=== PATIENT | female | born 1945 | race Caucasian/White ===

== ENCOUNTER → 2018-11-04 | Outpatient (CLI) | payer MEDICARE, OTHER, SELFPAY ==
[2018-08-18 10:37] VITALS: BMI 38.8
--- NOTE | 2018-11-04 12:53 | CT_ITS ---
STUDY: CT MAXILLOFACIAL SINUSES REASON FOR EXAM: Female, 72 years old. Sinusitis RADIATION DOSAGE (If Supplied By Facility): CTDIvol = ( 29.38 ) mGy, DLP = ( 385.84 ) mGycm TECHNIQUE: The patient was scanned in a multi detector CT scanner. High resolution axial imaging was performed without the administration of intravenous contrast material. Sagittal and coronal images were reconstructed. Individualized dose optimization techniques were used for this CT. COMPARISON: None. FINDINGS: FRONTAL SINUSES: Normal aeration, without mucosal inflammatory disease. ETHMOIDAL SINUSES: Normal aeration, without mucosal inflammatory disease. MAXILLARY SINUSES: Normal aeration, without mucosal inflammatory disease. SPHENOIDAL SINUSES: Normal aeration, without mucosal inflammatory disease. There is patency of the bilateral maxillary infundibuli with normal uncinate processes, ethmoid bullae, and hiatus semilunaris. Normal bilateral middle turbinates. Normal bilateral inferior turbinates. Normal midline nasal septum. There is patency of the bilateral nasal airways. The visualized osseous structures are normal. The visualized bilateral orbital contents are normal. CT/Sinus/Facial Bone IMPRESSION: Normal CT examination of the maxillofacial sinuses. Electronically Signed: Ambrocio Garcia, at 16:49 EDT Tel , Service support ,
== END | disposition home or self-care (01) ==
PROVIDERS: Family Provider Family Medicine; PCP Family Medicine; Referring Provider Otolaryngology Otolaryngology/Facial Plastic Surgery; Visit Provider Otolaryngology Otolaryngology/Facial Plastic Surgery
DX: J32.9 Chronic sinusitis, unspecified (principal)
CPT/HCPCS: 70486

== ENCOUNTER → 2020-07-27 14:04 | Outpatient (CLI) | payer MEDICARE, OTHER, SELFPAY ==
[2020-07-24 14:34] VITALS: BMI 35.4
--- NOTE | 2020-07-27 14:10 | RAD_ITS ---
HISTORY: CHRONIC LBP WITH RADIATION INTO BILAT LEGS COMPARISON: None FINDINGS: # of images incl. paperwork: 2 XR Spine Lumbar 2 or 3 Views: Lumbar vertebral bodies are normal in height. Lumbar disc spaces areare narrowed at several levels. The patient has undergone a prosthetic disc placement at the L4-L5 level with posterior spinal fixation hardware placed at the L3-L4 level. Facet arthropathy is present at many levels, beginning perhaps at the L2-L3 level extending through L5-S1. There may be fusion across the L3-L4 or L4-L5 and L5-S1 levels. Laminectomy has been performed at the L3-L4 levels. Additional left upper quadrant surgical clips. Cholecystectomy clips. 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 No acute lumbar spine fracture or subluxation. RAD/Lumbar Spine 2 or 3 Views IMPRESSION: No acute lumbar spine fracture or subluxation. Posterior spinal fixation at L3-L4. Laminectomies at L4 3 04. Prosthetic disc spacer at L4-L5. There is degrees of degenerative or postoperative fusion of the facets from L2-L3 through L5-S1 with arthropathy. Trace retrolisthesis of L3 on L4 is unchanged. at 0455 Reported and signed by: Sebastian Don MD Electronically Signed: Sebastian Don MD at 4:54 EST Tel , Service support ,
== END ==
PROVIDERS: PCP Family Medicine; Visit Provider Anesthesiology Pain Medicine
DX: M54.9 Dorsalgia, unspecified (principal); M79.606 Pain in leg, unspecified
CPT/HCPCS: 72100

== ENCOUNTER → 2020-08-07 16:06 | Outpatient (CLI) | payer MEDICARE, OTHER, SELFPAY ==
[2020-07-24 14:34] VITALS: BMI 35.4
--- NOTE | 2020-08-07 16:18 | MRI_ITS ---
STUDY: MRI LUMBAR SPINE WITHOUT CONTRAST REASON FOR EXAM: Female, 74 years old. back and bilat leg pain x 1 year TECHNIQUE: Standardized fat and water weighted pulse sequences were obtained in the sagittal and axial planes. COMPARISON: None FINDINGS: T12-L1: Normal endplates. Normal disc height, hydration and morphology. Normal bilateral facet joints. Normal central canal and bilateral lateral recesses. Normal bilateral intervertebral neural foramina. Normal lumbar lordosis. There is no substantial scoliosis. Normal conus medullaris that terminates at the L2. L1-2: Mild bilateral facet hypertrophy and ligament flavum hypertrophy. Mild bilobed disc protrusion produces mild spinal stenosis with mild bilateral lateral recess stenosis but no neural foraminal stenosis. L2-3: Moderate bilateral facet hypertrophy and ligament flavum hypertrophy. Moderate broad disc protrusion produces moderate spinal stenosis with moderate bilateral recess stenosis with abutment of the L3 nerve roots bilaterally and mild bilateral neural foraminal stenosis. L3-4: Status post posterior decompression and transpedicular fixation with anatomic alignment and no spinal stenosis or neural foraminal stenosis. There is a small seroma the within the posterior soft tissues posterior to the thecal sac without mass effect on the thecal sac. L4-5: Status post discectomy with interbody fusion with bony bridging and posterior decompression with anatomic alignment and no spinal stenosis or neural foraminal stenosis. L5-S1: Mild bilateral facet hypertrophy. Mild broad disc protrusion produces mild spinal stenosis and mild bilateral neural foraminal stenosis. Normal visualized sacral ala. Normal visualized paraspinous soft tissue structures. MRI/Spine Lumbar (Routine) IMPRESSION: Postsurgical changes and degenerative disc disease as described above particularly at L2/L3 just superior to the site of the fixation. Electronically Signed: Sheldon Ramirez MD at 17:26 EST Tel , Service support ,
== END ==
PROVIDERS: PCP Family Medicine; Referring Provider Anesthesiology Pain Medicine; Visit Provider Anesthesiology Pain Medicine
DX: M54.9 Dorsalgia, unspecified (principal); M79.606 Pain in leg, unspecified
CPT/HCPCS: 72148

== ENCOUNTER 2020-09-21 14:00 | Outpatient (RCR) | payer MEDICARE, OTHER, SELFPAY ==
[2020-07-24 14:34] VITALS: BMI 35.4
--- NOTE | 2020-09-12 08:57 | HP.PTEVAL_ITS ---
Patient's Visit Information MELISSA CINTRON is a 74 year old F referred to Physical Therapy by Dr. Leonie Loja MD with a diagnosis of Back and leg pain. Date of Evaluation: 09/08/20 Physical Therapist: Lio Nicolas DPT - Visit Plan Frequency: 2x /Week Duration: 4-6 Weeks Plan: Start with neutral spine core stability and BLE strengthening in aquatic setting. Add in HS stretching as well. Progress as tolerated. - Subjective Pt. is here today for her initial evaluation with diagnosis of low back and leg pain. Pt. reports having increased pain for 40 years stemming from a work injury. Pt. has had 3 surgeries on her back, most recent being a few years ago. She has been having progressing back and B Leg pain worsing over the past year or so. Pt. reports increased pain with prolonged standing, walking and lifting. Decreased pain with sitting and sleeping. Pt. reports occssional N/T in either LE as well. She does not report that her legs having been giving out on her. Pt. has not beening doing much since COV and has been attempting to stay in doors. Pt. did have a recent injection which gave her some relief. pt. is hopeful to reduce overall symptoms and walk further without increase in symptoms. MRI- L2- 3: Moderate bilateral facet hypertrophy and ligament flavum. hypertrophy. Moderate broad disc protrusion produces moderate spinal. stenosis with moderate bilateral recess stenosis with abutment of the L3. nerve roots bilaterally and mild bilateral neural foraminal stenosis. L3-4: Status post posterior decompression and transpedicular fixation with. anatomic alignment and no spinal stenosis or neural foraminal stenosis. There is a small seroma the within the posterior soft tissues posterior to. the thecal sac without mass effect on the thecal sac. L4-5: Status post discectomy with interbody fusion with bony bridging and. posterior decompression with anatomic alignment and no spinal stenosis or. neural foraminal stenosis. - Pain Lumbar spine Pain Intensity (Out of 10): 3 Pain Intensity Range: 1, 8 BLEs Pain Intensity (Out of 10): 3 Pain Intensity Range: 1, 8 - Objective POSTURE: Pt. has general flexed posture, anterior pelvic tilt as well. Normal iliac crest heights. PALPATION: Pt. has normal healing post surgical insicion, non recent. Pt. has tenderness and tightness associated with B lumbar paraspinals. NEURO: Pt. has decreased patellar and achilles DTR bilaterally. Normal sensation throughout BLEs. Pt. is able to rise on heels and toe. ROM: LUMBAR SPINE: flexion- mod loss increase NW, extension- mod loss increase NW, SB mod loss (stiffness, no pain), rotation mod loss (stiffness no pain). Pt. has B knees replaced as well. Sitffness in B hips and knees. Tight HS as well. MMT: Pt. has 4+/5 BLE strength, except hip flexion 4/5, and hip abd 4/5, core strength poor. (difficulty completeing post pelvic tilt). GAIT: Pt. ambulates with increased bilateral hip sway laterally, minizied arm swing and decreased step length bilatrally. - Goals Goal 1:: LTG: Pt. to be I with HEP. Goal Time Frame: 4-6 Weeks Goal 2:: STG: Pt. to walk throughout grocery store with 0-3/10 pain in lumbar spine and BLEs. Goal Time Frame: 2-4 Weeks Goal 3:: LTG: Pt. to ambulate unlimited distances with 0-3/10 pain allowing for increased healthy lifestyle. Goal Time Frame: 4-6 Weeks Goal 4:: LTG: pt. to have increased core and BLE strength increaed by 1/2 grade. Goal Time Frame: 4-6 Weeks Goal 5:: LTG: Pt. to be educated in prophalxis to reudce return to symptoms. Goal Time Frame: 4-6 Weeks - Rehabilitation Potential Physical Therapy Diagnosis: Pt. has signs and symptoms consistent with low back pain and B Leg pain. Pt. has marked stiffness throuhgout her back with increased pain. She also has marked weakness in BLEs and her core musculature. I would like her to start with BLE and core strengtheing in aquatic setting and increase a less guarded gait pattern. Rehabilitation Potential: Good - Anticipated Interventions Patient/Client Instruction: Educate patient on: Condition, Plan of Care, Risk Factors, Benefits of Fitness Program For the Purpose of:: To improve self management, To prevent re-injury, To improve ability to perform tasks related to life management, To improve tolerance to ADL's Therapeutic Exercise to Include: Strength training, Power training, Endurance training, Agility training, Body mechanics, Postural training, Flexibilty training, In an aquatic setting, Dynamic Lumbar Stabilization, Johana Exercises, Scapular Strength/Stabilization For the Purpose of:: To decrease pain, To decrease swelling/inflammation, To increase ROM, To improve nutrient delivery to tissue, To increase oxygenation perfusion, To improve muscle performance and motor function, To decrease level of supervision to perform tasks, To improve ability of physical actions for home/community/work/leisure, To improve health of tissue, To decrease soft tissue restriction Thank you for the opportunity to evaluate your patient. For Medicare and Medicare HMO plans, please review the plan of care and approve it. It will need to be FAXED BACK to us at [phone] for Medicare purposes. For Medicare only, by signing this I certify the plan of care. Please let me know if there are questions or concerns regarding this plan of care. Physician Signature: Date:
--- NOTE | 2020-12-13 12:15 | HP.PT.NRP ---
MELISSA CINTRON was seen in my office for initial evaluation on 09/08/20. The following Plan of Care was established for this patient: Initial Frequency: 2x /Week Initial Duration: 4-6 Weeks Patient/Client Instruction: Educate patient on: Condition, Plan of Care, Risk Factors, Benefits of Fitness Program For the Purpose of:: To improve self management, To prevent re-injury, To improve ability to perform tasks related to life management, To improve tolerance to ADL's Therapeutic Exercise to Include: Strength training, Power training, Endurance training, Agility training, Body mechanics, Postural training, Flexibilty training, In an aquatic setting, Dynamic Lumbar Stabilization, Johana Exercises, Scapular Strength/Stabilization For the Purpose of:: To decrease pain, To decrease swelling/inflammation, To increase ROM, To improve nutrient delivery to tissue, To increase oxygenation perfusion, To improve muscle performance and motor function, To decrease level of supervision to perform tasks, To improve ability of physical actions for home/community/work/leisure, To improve health of tissue, To decrease soft tissue restriction This patient was last seen in our office 09/21/20. Pertinent comments regarding their Physical therapy will appear below: Pt. was seen in PT in aquatic setting. She came for 5 visits, but did not attend her follow up with the PT and has not been seen in several months. Pt. will be DC from PT at this point in time. At this point I will be discontinuing this patient from physical therapy. I would be happy to see this patient again in the future if found appropriate by the physician. Thank you! Lio Nicolas DPT
== END 2020-09-21 19:00 | disposition home or self-care (01) ==
LOC: PT 14:00
PROVIDERS: PCP Family Medicine; Referring Provider Anesthesiology Pain Medicine; Visit Provider Anesthesiology Pain Medicine
DX: M54.9 Dorsalgia, unspecified (principal); M79.606 Pain in leg, unspecified
CPT/HCPCS: 97113; 97161

== ENCOUNTER → 2022-10-10 | Outpatient (CLI) | payer MEDICARE, OTHER, SELFPAY ==
[2022-10-10 13:05] LABS: T4 Free Direct 1.05 ng/dL (0.76-1.46); Thyroid Stim Hormone (TSH) 0.32 uIU/mL (0.358-3.74)
== END | disposition home or self-care (01) ==
LOC: BIMLAB 11:17
PROVIDERS: PCP Family Medicine; Referring Provider Internal Medicine Endocrinology, Diabetes & Metabolism; Visit Provider Internal Medicine Endocrinology, Diabetes & Metabolism
DX: E11.9 Type 2 diabetes mellitus without complications (principal)
CPT/HCPCS: 36415; 84439; 84443

== ENCOUNTER → 2023-02-24 | Outpatient (CLI) | payer MEDICARE, OTHER, SELFPAY ==
[2023-02-24 14:18] LABS: Amphetamine Urine VISTA NEGATIVE (<1000 ng/mL); Barbiturate Urine VISTA NEGATIVE (< 200 ng/mL); Benzodiazepine Urine VISTA NEGATIVE (< 200 ng/mL); Cocaine Urine VISTA NEGATIVE (< 300 ng/mL); Ecstacy Urine VISTA NEGATIVE (< 500 ng/mL); Methadone Urine VISTA NEGATIVE (< 300 ng/mL); PCP Urine VISTA NEGATIVE (< 25 ng/mL); THC Urine VISTA NEGATIVE (< 50 ng/mL); Vista UDS pH Range 6
== END | disposition home or self-care (01) ==
PROVIDERS: PCP Family Medicine; Referring Provider Anesthesiology Pain Medicine; Visit Provider Anesthesiology Pain Medicine
DX: F11.20 Opioid dependence, uncomplicated (principal)
CPT/HCPCS: 80307

== ENCOUNTER → 2023-10-13 | Outpatient (CLI) | payer MEDICARE, SELFPAY ==
[2023-10-13 13:59] LABS: Bacteria 0 SEEN /hpf (None Seen); Mucous, Urine 0 SEEN /hpf (<or=2+); Red Blood Cells-Urine 0 SEEN /hpf (0-5); White Blood Cells 0 SEEN /hpf (0-5)
[2023-10-13 16:25] LABS: Color, Urine Yellow (Yellow); Glucose, Dipstick Normal (Normal); Ketone-Dipstick Negative (Negative); Leukocyte Esterase-Dipstick Negative /ul (Negative); Nitrite-Dipstick Negative (Negative); Occult Blood-Urine Negative /ul (Negative); Protein-Dipstick Negative (Negative); Urine Bilirubin Dipstick Negative (Negative); Urine Clarity Clear (Clear); Urine Urobilinogen Normal (Normal)
[2023-10-13 16:51] LABS: Absolute Lymphocyte Count 1.95 X10^3/uL (0.83-4.51); Absolute Neutrophil Count 2.6 X10^3/uL (2.0-7.7); Basophil# 0.03 X10^3/uL; Basophil% 0.6 % (0-1); Eosinophil# 0.11 X10^3/uL; Eosinophils% 2.1 % (0-5); Hematocrit 34.2 % (37-47); Hemoglobin 10.9 g/dL (12.0-15.0); Lymphocyte # 1.95 X10^3/ul (0.83-4.51); Lymphocyte % 36.9 % (19-41); Mean Corp Hgb Conc 31.9 g/dL (32-36); Mean Corpuscular Hgb 31.6 pg (27.0-32.0); Mean Corpuscular Volume 99.1 fL (81-99); Monocyte# 0.53 X10^3/uL; NRBC Flagged by Analyzer 0 % (0-5); Neutrophil # 2.64 X10^3/uL (2.7-7.7); Neutrophil % 49.8 % (47-70); Platelet Count 214 K/mm3 (150-450); RBC Distribution Width CV 13.7 % (11.6-14.6); RBC Distribution Width SD 49.4 fl (35.1-43.9); Red Blood Count 3.45 M/mm3 (4.2-5.4); White Blood Count 5.3 K/mm3 (4.4-11.0)
[2023-10-13 17:08] LABS: Vitamin D,25 Hydroxy 53.8 ng/mL
[2023-10-13 17:17] LABS: Squamous Epithelial Cells - UA 0-5 SEEN /hpf (5-10)
[2023-10-13 17:23] LABS: AST(SGOT) 34 U/L (15-37); Alanine Aminotransfer ALT/SGPT 30 U/L (13-56); Albumin, Serum 3.5 g/dL (3.2-5.0); Alkaline Phosphatase 30 U/L (45-117); Anion Gap 8 (5-15); BUN 28 mg/dL (7-18); BUN/Creat Ratio 18.9 RATIO (10-20); Calcium,Total 9.6 mg/dL (8.5-10.1); Chloride 105 mmol/L (98-107); Cholesterol 143 mg/dL (200); Creatinine, Serum 1.48 mg/dL (0.55-1.02); EST Glomerular Filtration Rate 36 mL/min (>60); Est Glom Filt Rate - Afr Amer 44 mL/min (>60); Globulin 3.6 g/dL (2.2-4.2); Glucose 86 mg/dL (74-106); High Density Lipoprotein 24 mg/dL; Potassium 4.5 mmol/L (3.5-5.1); Protein, Total 7.1 g/dL (6.4-8.2); Sodium Level 138 mmol/L (136-145); Thyroid Stim Hormone (TSH) 0.92 uIU/mL (0.358-3.74); Triglycerides 661 mg/dL; Uric Acid 4.5 mg/dL (2.6-6.0)
== END | disposition home or self-care (01) ==
LOC: LABSPEC 13:58 → BIMLAB 14:24
PROVIDERS: PCP Internal Medicine; Referring Provider Internal Medicine; Visit Provider Internal Medicine
DX: E11.22 Type 2 diabetes mellitus with diabetic chronic kidney disease (principal); N18.31 Chronic kidney disease, stage 3a
CPT/HCPCS: 36415; 80053; 80061; 81001; 82306; 84443; 84550; 85025

== ENCOUNTER → 2023-10-16 | Outpatient (CLI) | payer MEDICARE, SELFPAY ==
--- NOTE | 2023-10-16 11:21 | US_ITS ---
STUDY: ULTRASOUND - URINARY BLADDER REASON FOR EXAM: Female, 77 years old. Urinary dribbling TECHNIQUE: Ultrasound evaluation of the urinary bladder was performed with real-time and static santiago-scale imaging. COMPARISON: None. FINDINGS: There is no right UVJ calculus. There is a visualized right ureteral jet. There is no left UVJ calculus. There is a visualized left ureteral jet. The distended volume of the urinary bladder is 182.6 ml. The empty volume of the urinary bladder is 131 ml. The bladder wall is within normal limits. The bladder wall measures 2.8 mm. There is no demonstrated bladder wall mass lesion. There are no demonstrated bladder calculi. US/Post Void Residual Bladder IMPRESSION: Large postvoid residual. Electronically Signed: Julio Moralez MD at 14:49 EDT ,
== END | disposition home or self-care (01) ==
PROVIDERS: PCP Internal Medicine; Referring Provider Internal Medicine; Visit Provider Internal Medicine
DX: N39.43 Post-void dribbling (principal)
CPT/HCPCS: 51798

== ENCOUNTER → 2023-10-20 | Outpatient (CLI) | payer MEDICARE, SELFPAY ==
[2023-10-20 13:51] LABS: Amphetamine Urine VISTA NEGATIVE (<1000 ng/mL); Barbiturate Urine VISTA NEGATIVE (< 200 ng/mL); Benzodiazepine Urine VISTA NEGATIVE (< 200 ng/mL); Cocaine Urine VISTA NEGATIVE (< 300 ng/mL); Ecstacy Urine VISTA NEGATIVE (< 500 ng/mL); Methadone Urine VISTA NEGATIVE (< 300 ng/mL); PCP Urine VISTA NEGATIVE (< 25 ng/mL); THC Urine VISTA NEGATIVE (< 50 ng/mL); Vista UDS pH Range 5
== END | disposition home or self-care (01) ==
PROVIDERS: PCP Internal Medicine; Referring Provider Anesthesiology Pain Medicine; Visit Provider Anesthesiology Pain Medicine
DX: F11.20 Opioid dependence, uncomplicated (principal)
CPT/HCPCS: 80307

== ENCOUNTER → 2024-03-12 | Outpatient (CLI) | payer MEDICARE, SELFPAY ==
[2024-03-12 11:54] LABS: Absolute Lymphocyte Count 1.35 X10^3/uL (0.83-4.51); Absolute Neutrophil Count 2.2 X10^3/uL (2.0-7.7); Basophil# 0.01 X10^3/uL; Basophil% 0.3 % (0-1); Eosinophil# 0.13 X10^3/uL; Eosinophils% 3.3 % (0-5); Hematocrit 35.5 % (37-47); Lymphocyte # 1.35 X10^3/ul (0.83-4.51); Mean Corpuscular Hgb 31.5 pg (27.0-32.0); Mean Corpuscular Volume 101.7 fL (81-99); Mean Platelet Vol. 10.4 fl (6.2-12.0); Monocyte% 7.6 % (0-10); NRBC Flagged by Analyzer 0 % (0-5); Neutrophil # 2.17 X10^3/uL (2.7-7.7); Neutrophil % 54.5 % (47-70); Platelet Count 173 K/mm3 (150-450); RBC Distribution Width CV 14.7 % (11.6-14.6); Red Blood Count 3.49 M/mm3 (4.2-5.4)
== END | disposition home or self-care (01) ==
LOC: BIMLAB 10:44
PROVIDERS: PCP Internal Medicine; Referring Provider Physician Assistant; Visit Provider Physician Assistant
DX: K92.1 Melena (principal)
CPT/HCPCS: 36415; 85025

== ENCOUNTER → 2024-04-05 | Outpatient (CLI) | payer MEDICARE, SELFPAY | END | disposition home or self-care (01) | LOC: MTLAB 16:10 | PROVIDERS: PCP Internal Medicine; Referring Provider Internal Medicine Gastroenterology; Visit Provider Internal Medicine Gastroenterology | DX: R19.7 Diarrhea, unspecified (principal) | CPT/HCPCS: 87493 ==

== ENCOUNTER → 2024-04-14 | Outpatient (CLI) | payer MEDICARE, SELFPAY ==
[2024-04-14 15:14] LABS: Absolute Lymphocyte Count 2.09 X10^3/uL (0.83-4.51); Absolute Neutrophil Count 5.3 X10^3/uL (2.0-7.7); Basophil# 0.07 X10^3/uL; Basophil% 0.8 % (0-1); Eosinophil# 0.24 X10^3/uL; Eosinophils% 2.9 % (0-5); Hematocrit 35.6 % (37-47); Hemoglobin 11.1 g/dL (12.0-15.0); Lymphocyte # 2.09 X10^3/ul (0.83-4.51); Lymphocyte % 24.9 % (19-41); Mean Corp Hgb Conc 31.2 g/dL (32-36); Mean Corpuscular Hgb 31.3 pg (27.0-32.0); Mean Corpuscular Volume 100.3 fL (81-99); Mean Platelet Vol. 8.8 fl (6.2-12.0); Monocyte# 0.55 X10^3/uL; Monocyte% 6.5 % (0-10); NRBC Flagged by Analyzer 0 % (0-5); Neutrophil # 5.34 X10^3/uL (2.7-7.7); Neutrophil % 63.6 % (47-70); Platelet Count 343 K/mm3 (150-450); RBC Distribution Width CV 14.8 % (11.6-14.6); RBC Distribution Width SD 54.6 fl (35.1-43.9); Red Blood Count 3.55 M/mm3 (4.2-5.4); White Blood Count 8.4 K/mm3 (4.4-11.0)
[2024-04-14 16:18] LABS: Microalbumin,Random Urine 6.7 mg/L (NO RANGE EST.); Microalbumin:Creatinine Ratio 15.7 mg/g CRE (<30 mg/g CRE)
[2024-04-14 17:12] LABS: ALB/GLOB Ratio 0.8 RATIO (0.9-2.4); AST(SGOT) 31 U/L (15-37); Alanine Aminotransfer ALT/SGPT 23 U/L (13-56); Albumin, Serum 3.3 g/dL (3.2-5.0); Alkaline Phosphatase 89 U/L (45-117); Anion Gap 8 (5-15); BUN 29 mg/dL (7-18); BUN/Creat Ratio 20.1 RATIO (10-20); Calcium,Total 9.8 mg/dL (8.5-10.1); Chloride 104 mmol/L (98-107); Cholesterol 129 mg/dL (200); Creatinine, Serum 1.44 mg/dL (0.55-1.02); EST Glomerular Filtration Rate 37 mL/min (>60); Est Glom Filt Rate - Afr Amer 45 mL/min (>60); Globulin 4.3 g/dL (2.2-4.2); Glucose 217 mg/dL (74-106); High Density Lipoprotein 28 mg/dL; Potassium 4.5 mmol/L (3.5-5.1); Protein, Total 7.6 g/dL (6.4-8.2); Sodium Level 137 mmol/L (136-145); Triglycerides 345 mg/dL; Very Low Density Lipoprotein 69 mg/dL (5-40)
== END | disposition home or self-care (01) ==
LOC: BIMLAB 14:20
PROVIDERS: PCP Internal Medicine; Referring Provider Physician Assistant; Visit Provider Physician Assistant
DX: E11.22 Type 2 diabetes mellitus with diabetic chronic kidney disease (principal); Z79.4 Long term (current) use of insulin; N18.31 Chronic kidney disease, stage 3a; E03.9 Hypothyroidism, unspecified
CPT/HCPCS: 36415; 80053; 80061; 82043; 82570; 84443; 85025

== ENCOUNTER → 2024-05-13 | Outpatient (CLI) | payer MEDICARE, SELFPAY | END | disposition home or self-care (01) | PROVIDERS: PCP Internal Medicine; Referring Provider Internal Medicine Gastroenterology; Visit Provider Internal Medicine Gastroenterology | DX: R19.7 Diarrhea, unspecified (principal) | CPT/HCPCS: 87493 ==

== ENCOUNTER → 2024-05-24 | Outpatient (CLI) | payer MEDICARE, SELFPAY ==
--- NOTE | 2024-05-24 16:15 | MRI_ITS ---
INDICATION: RADICULOPATHY, LOWER BACK PAIN EXAMINATION: MRI - MR Spine Lumbar W/O Contrast TECHNIQUE: Multiplanar and multisequence MR images of the lumbar spine. IV Contrast Dosage and Agent: None. COMPARISON: 08/07/2020. FINDINGS: VERTEBRAE: Vertebral body heights are preserved. Normal vertebral bodies and posterior elements. VERTEBRAL ALIGNMENT: 5 mm degenerative retrolisthesis at L2-3. CORD: Normal position and signal intensity of the conus medullaris. Endplate spondylosis. Circumferential disc bulge. Degenerative changes of the bilateral facet joints. Central canal and bilateral intervertebral neural foraminal narrowing. L1/L2: Mild narrowing of the spinal canal. Normal bilateral neuroforamina. L2/L3: Severe spinal canal and moderate bilateral neural foraminal narrowing. L3/L4: Postsurgical changes. There is no significant narrowing of the spinal canal or neural foramina. There is fluid collection posterior to the laminectomy site measures 3 x 1.4 x 2 cm most likely represent a seroma. L4/L5: Postsurgical changes. No significant stenosis of the spinal canal, lateral recesses and neuroforamina. L5/S1: Severe narrowing of the bilateral neuroforamina. SOFT TISSUES: Multilevel degenerative spondylosis. Severe spinal canal stenosis at L2-3 is worse since the previous study from 08/07/2020. MRI/Spine Lumbar (Routine) IMPRESSION: Unremarkable MRI of the lumbar spine. Electronically Signed: Shahana Pang MD at 6:13 EST ,
== END | disposition home or self-care (01) ==
PROVIDERS: PCP Internal Medicine; Referring Provider Anesthesiology Pain Medicine; Visit Provider Anesthesiology Pain Medicine
DX: M54.16 Radiculopathy, lumbar region (principal); M96.1 Postlaminectomy syndrome, not elsewhere classified
CPT/HCPCS: 72148

== ENCOUNTER 2024-06-16 18:12 | Emergency (ER) | payer MEDICARE, SELFPAY ==
[2024-06-16 18:13] VITALS: BP 118/62; PULSE 70; RESP 16; TEMP 36.4; O2SAT 97; BMI 38.6
--- NOTE | 2024-06-16 18:28 | EDS_ITS ---
HPI History of Present Illness Chief Complaint: Fall Informant: patient and EMS Narrative Narrative: 78-year-old female presenting to the emergency room with right knee pain. Patient states she was going down the stairs and she missed the last step falling. She believe her knee twisted. She notes pain only in the knee. She denies any other injuries. She states she is not on a blood thinner. She had the knee replaced about 20 years ago in [place] and the surgeon has since retired. Patient received fentanyl by EMS both intramuscular and IV. [facility] Medical History Osteopenia determined by x-ray Bilateral pseudophakia Amblyopia of left eye Dry eye syndrome of bilateral lacrimal glands Acute allergic conjunctivitis of both eyes Hypertriglyceridemia Encounter for long-term (current) insulin use Shingles Thyroid disease Skin cancer High cholesterol Gout Diabetes type 2, controlled Back problem Seasonal allergies Home Medications ?Medication ?Instructions ?Recorded ?Last Taken ?Type pantoprazole 40 mg tablet,delayed 40 mg PO QDAY 07/15/17 Unknown History release insulin syringe-needle U-100 0.3 #350 ea 07/17/17 Unknown Rx mL 31 gauge x 5/16 (BD Insulin Syringe Ultra-Fine) pen needle, diabetic 32 gauge x #350 ea 02/19/18 Unknown Rx 5/32 (BD Ultra-Fine Christy Pen Needle) cholecalciferol (vitamin D3) 25 1,000 unit PO DAILY 06/23/18 Unknown History mcg (1,000 unit) capsule aspirin 81 mg tablet,delayed 81 mg PO DAILY 07/24/20 Unknown History release mecobalamin (vitamin B12) 1,000 1,000 mcg PO DAILY 07/24/20 Unknown History mcg chewable tablet blood sugar diagnostic #100 ea 12/18/20 Unknown Rx icosapent ethyl 1 gram capsule 2 g (2 x 1 gram) PO BID #120 caps 11/05/21 Unknown Rx (Vascepa) omega-3 fatty acids 1,000 mg 1,000 mg PO BID 01/23/23 Unknown History capsule polyethylene glycol 3350 17 4 g PO DAILY PRN 01/23/23 Unknown History gram/dose oral powder (Miralax) tramadol 25 mg tablet 25 mg PO BID PRN 09/01/23 Unknown History flash glucose sensor (FreeStyle #2 ea 10/02/23 Unknown Rx Nomi 2 Sensor kit) furosemide 20 mg tablet 20 mg PO QDAY #90 tabs 10/13/23 Unknown Rx metoprolol succinate 50 mg 25 mg (1/2 x 50 mg) PO BID #180 10/13/23 Unknown Rx tablet,extended release 24 hr tabs Novolog FlexPen U-100 Insulin 100 40 unit (0.4 mL) subcut TID #48 mL 01/01/24 Unknown Rx unit/mL (3 mL) subcutaneous (insulin aspart U-100) fluticasone propionate 50 1 spray intranasal DAILY PRN 01/01/24 Unknown History mcg/actuation nasal spray,suspension lisinopril 10 mg tablet 10 mg PO DAILY #90 tabs 01/23/24 Unknown Rx insulin degludec 200 unit/mL (3 55 unit subcut QHS 02/20/24 Unknown History mL) subcutaneous pen (Tresiba FlexTouch U-200 insulin) montelukast 10 mg tablet 10 mg PO DAILY #90 tabs 04/05/24 Unknown Rx blood sugar diagnostic (OneTouch #100 ea 04/09/24 Unknown Rx Ultra Test strips) loratadine 10 mg tablet 10 mg PO DAILY PRN for allergies 04/09/24 Unknown Rx #90 TABLETS potassium chloride 20 mEq 20 meq PO QDAY #90 tabs 04/09/24 Unknown Rx tablet,extended release(part/cryst) (Klor-Con M) Saccharomyces boulardii 250 mg 250 mg PO BID 04/14/24 Unknown History capsule (Florastor) allopurinol 300 mg tablet 300 mg PO DAILY #90 tabs 04/14/24 Unknown Rx fenofibrate micronized 134 mg 134 mg PO DAILY #90 caps 04/14/24 Unknown Rx capsule levothyroxine 112 mcg tablet 112 mcg PO DAILY #90 tabs 04/14/24 Unknown Rx rosuvastatin 20 mg tablet 20 mg PO QDAY #90 tabs 04/14/24 Unknown Rx trazodone 50 mg tablet 50 mg PO QHS PRN insomnia #90 tabs 04/14/24 Unknown Rx vancomycin 125 mg capsule 125 mg PO 4X/DAY 04/14/24 Unknown History Jardiance 25 mg tablet 25 mg PO QAM #90 tabs 05/13/24 Unknown Rx (empagliflozin) blood-glucose meter,continuous #1 ea 05/13/24 Unknown Rx (FreeStyle Nomi 3 [place]) blood-glucose sensor (FreeStyle #6 ea 05/13/24 Unknown Rx Nomi 3 Plus Sensor device) pen needle, diabetic 32 gauge x #150 ea 06/14/24 Unknown Rx (BD Ultra-Fine Christy Pen Needle) Allergy/AdvReac Type Severity Reaction Status Date / Time Sulfa (Sulfonamide AdvReac Severe Upset Verified 06/16/24 18:13 Antibiotics) Stomach Penicillins AdvReac Intermediate Diarrhea Verified 06/16/24 18:13 cephalexin (From Keflex) AdvReac Nausea/Vom/ Verified 06/16/24 18:13 Diarrhea Family History Father Colon cancer Mother Diabetes Myocardial infarction Son Kidney stones Son Kidney stones Diabetes Hyperlipidemia Sister Diabetes Brother Diabetes Heart disease Sister Heart disease Diabetes COPD (chronic obstructive pulmonary disease) Surgical History Status post Mohs surgery History of knee replacement History of carpal tunnel release Hx of hernia repair H/O total hysterectomy Hx of cataract surgery Hx of cholecystectomy History of back surgery Social History household members: spouse current occupational status: 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 Smoking Status: Never smoker Electronic Cigarette Use: not used second hand exposure: No alcohol intake: never substance use type: does not use do you feel safe at home: Yes ROS ROS ED Constitutional Constitutional ED: Denies chills, fever(s) or weight loss Eyes Eyes: Denies change in vision or diplopia ENT ENT ED: Denies ear pain, rhinorrhea or sore throat Cardiovascular Cardiovascular: Denies chest pain, orthopnea, palpitations or racing heartbeat Respiratory/Chest Respiratory/Chest: Denies cough, dyspnea or orthopnea Gastrointestinal Gastrointestinal: Denies abdominal pain, diarrhea, nausea or vomiting Genitourinary Genitourinary ED: Denies dysuria, hematuria or urinary frequency Musculoskeletal Musculoskeletal: Reports other Details: Right knee pain ; Denies arthralgias, back pain, myalgias or neck pain Integumentary Denies abscess or rash Neurologic Neurologic: Denies headache(s) or weakness Psychiatric Psychiatric: Denies anxiety, depression, suicidal ideation or suicidal thoughts Endocrine Endocrinology: Denies polydipsia, polyphagia or polyuria Allergic/Immunologic Allergic/Immunologic ED: Denies mouth swelling, tongue swelling or urticaria EXAM Physical Exam Const Vital Signs: 06/16/24 18:13 06/16/24 18:17 Temperature 97.6 F L Temperature Source Temporal Pulse Rate 70 Respiratory Rate 16 Respiratory Effort Normal Respiratory Depth Normal Respiratory Pattern Normal Blood Pressure 118/62 Blood Pressure Mean 80 Pulse Ox 97 Oxygen Delivery Method Room Air Room Air Oxygen Flow Rate (L/min) 94 Positive well nourished, well developed and obese General Appearance ED: well developed and NAD Nutritional Appearance: obese HEENT Reports normocephalic, head/scalp atraumatic and moist mucous membranes Eyes PERRL and EOMs intact bilaterally Neck no lymphadenopathy, supple and no JVD Resp normal respiratory effort and clear to auscultation bilaterally Cardio regular rate, regular rhythm and no murmurs GI normal to inspection, nondistended, normoactive bowel sounds and non-tender Palpation: soft Back/Spine no CVA tenderness and normal ROM Extremity Extremity Narrative: Right knee is slightly flexed. There is a well-healed midline incision. There is deformity over the cephalad aspect of the knee. Neurovascularly appears intact distal with normal coloration of the skin +2 dorsalis pedis pulse. Normal sensation. Unable to move knee without significant pain. General Extremety ED: Negative for edema General Extremity: Negative for edema Neuro oriented x3 and CN's II-XII intact bilaterally Sensorium / Orientation: alert Motor Exam: strength 5/5 throughout Psych mental status grossly normal Mood & Affect: Negative for depressed or tearful Skin no rashes or lesions noted and no wounds MDM MDM MDM Narrative Medical decision making narrative: Differential diagnosis includes but not limited to fracture dislocation ligamentous injury tendon injury muscular injury My independent interpretation 2 view knee x-ray is a acute distal periprosthetic femur fracture. Fracture begins distal femur just anterior to the prosthetic and extends in a spiral pattern cephalad. We are able to straighten the patient's leg place her knee immobilizer. Basic blood work will be obtained. Spoke with the patient and her family. I explained to them we do not have orthopedics on-call tonight and typically these periprosthetic fractures would be transferred to tertiary care. They did not have a preference for tertiary care for centimeters. I called [facility]. I spoke with orthopedics and then the emergency attending. Patient will be transferred to the emergency department there for orthopedic evaluation and final disposition. History & Record Review Discussion w/independent historian: EMS personnel, Patient and Family Lab Data Attestation: I reviewed the patient's lab results. Labs: Laboratory Results - last 24 hr 06/16/24 18:37 WBC 5.4 RBC 3.51 L Hgb 11.3 L Hct 33.9 L MCV 96.6 MCH 32.2 H MCHC 33.3 RDW Std Deviation 49.8 H RDW Coeff of Stephane 14.3 Plt Count 198 MPV 9.6 Immature Gran % (Auto) 0.600 Neut % (Auto) 52.4 Lymph % (Auto) 33.4 [place] % (Auto) 9.5 Eos % (Auto) 3.5 Baso % (Auto) 0.6 Absolute Neuts (auto) 2.8 Absolute Lymphs (auto) 1.80 Nucleated RBC % 0 PT 14.0 INR 1.1 APTT 27.2 Sodium 140 Potassium 4.4 Chloride 108 H Carbon Dioxide 25.0 Anion Gap 7 BUN 34 H Creatinine 1.77 H Estim Creat Clear Calc 29.38 Est GFR (MDRD) Af Amer 36 L Est GFR (MDRD) Non-Af 29 L BUN/Creatinine Ratio 19.2 Glucose 166 H Calcium 9.4 Discharge Plan Triage Chief Complaint: Fall ED Provider: Amandeep Panda Dx/Rx/DC Orders Clinical Impression: Fall, Kidney disease, chronic, stage III (GFR 30-59 ml/min), Femur fracture, right, Type 2 diabetes mellitus Prescriptions: No Action (DME) insulin syringe-needle U-100 [BD Insulin Syringe Ultra-Fine] 0.3 mL 31 gauge x 5/16 syringe See Dose Instructions .ROUTE .MEDSUPPLY Qty: 350 3RF Dose Instruction: As directed Rx Instructions: use to inject insulin 4 x q d pantoprazole 40 mg tablet,delayed release (DR/EC) 40 mg PO QDAY (DME) pen needle, diabetic [BD Ultra-Fine Christy Pen Needle] 32 gauge x 5/32 needle See Dose Instructions .ROUTE .MEDSUPPLY Qty: 350 3RF Dose Instruction: As directed Rx Instructions: As directed with insulin 4x daily cholecalciferol (vitamin D3) 1,000 unit capsule 1,000 unit PO DAILY aspirin 81 mg tablet,delayed release (DR/EC) 81 mg PO DAILY mecobalamin (vitamin B12) 1,000 mcg tablet,chewable 1,000 mcg PO DAILY (DME) OneTouch Ultra Test Strip See Dose Instructions .ROUTE .MEDSUPPLY Qty: 100 3RF Dose Instruction: As directed Rx Instructions: daily omega-3 fatty acids 1,000 mg capsule 1,000 mg PO BID polyethylene glycol 3350 [Miralax] 17 gram/dose powder 4 g PO DAILY PRN fluticasone propionate 50 mcg/actuation spray,suspension 1 spray intranasal DAILY PRN Rx Instructions: administer into each nostril tramadol 25 mg tablet 25 mg PO BID PRN insulin aspart U-100 [Novolog FlexPen U-100 Insulin] 100 unit/mL (3 mL) insulin pen 40 unit subcut TID MDD 160 Qty: 48 7RF Rx Instructions: plus sliding scale furosemide 20 mg tablet 20 mg PO QDAY Qty: 90 1RF metoprolol succinate 50 mg tablet extended release 24 hr 25 mg PO BID Qty: 180 1RF (DME) FreeStyle Nomi 3 Plus Sensor Device See Rx Instructions .Route Qty: 6 1RF Rx Instructions: As directed (DME) FreeStyle Nomi 3 [place] Misc See Rx Instructions .Route Qty: 1 0RF Rx Instructions: As directed Jardiance 25 mg tablet 25 mg PO QAM Qty: 90 3RF vancomycin 125 mg capsule 125 mg PO 4X/DAY Saccharomyces boulardii [Florastor] 250 mg capsule 250 mg PO BID fenofibrate micronized 134 mg capsule 134 mg PO DAILY Qty: 90 1RF levothyroxine 112 mcg tablet 112 mcg PO DAILY Qty: 90 1RF allopurinol 300 mg tablet 300 mg PO DAILY Qty: 90 1RF rosuvastatin 20 mg tablet 20 mg PO QDAY Qty: 90 1RF trazodone 50 mg tablet 50 mg PO QHS PRN (Reason: insomnia) Qty: 90 1RF insulin degludec [Tresiba FlexTouch U-200] 200 unit/mL (3 mL) insulin pen 55 unit subcut QHS icosapent ethyl [Vascepa] 1 gram capsule 2 g PO BID Qty: 120 6RF (DME) FreeStyle Nomi 2 Sensor Kit See Rx Instructions .Route Qty: 2 7RF Rx Instructions: As directed lisinopril 10 mg tablet 10 mg PO DAILY Qty: 90 1RF montelukast 10 mg tablet 10 mg PO DAILY Qty: 90 0RF potassium chloride [Klor-Con M20] 20 mEq tablet,ER particles/crystals 20 meq PO QDAY Qty: 90 0RF loratadine 10 mg tablet 10 mg PO DAILY PRN (Reason: for allergies) Qty: 90 0RF (DME) OneTouch Ultra Test Strip See Rx Instructions .ROUTE .MEDSUPPLY Qty: 100 6RF Rx Instructions: three times daily (DME) pen needle, diabetic [BD Ultra-Fine Christy Pen Needle] 32 gauge x 5/32 needle See Rx Instructions .ROUTE .MEDSUPPLY Qty: 150 8RF Rx Instructions: 5 times daily Primary Care Provider: Penny Coulter Referrals: Penny Coulter MD [Primary Care Provider] - Print Language: Turkmen Disposition Disposition: Acute Care Hospital Discharge Location: [facility]
--- NOTE | 2024-06-16 18:50 | RAD_ITS ---
EXAM: XR RIGHT KNEE, 1 OR 2 VIEWS CLINICAL INDICATION: injury pain. TECHNIQUE: Frontal and/or lateral views of the right knee. COMPARISON: No relevant prior studies available. FINDINGS: BONES/JOINTS: Periprosthetic fracture of the distal femoral metadiaphysis with moderate displacement. Status post total knee arthroplasty. No sclerotic or destructive changes observed. SOFT TISSUES: Periarticular soft tissue swelling. No radiopaque foreign body. VASCULATURE: Vascular calcifications. RAD/Knee 1 or 2 Views IMPRESSION: Periprosthetic fracture of the distal femoral metadiaphysis with moderate displacement. Status post total knee arthroplasty. Electronically Signed: Alexei Radford DO at 20:13 EST ,
[2024-06-16 19:01] LABS: Anion Gap 7 (5-15); BUN 34 mg/dL (7-18); BUN/Creat Ratio 19.2 RATIO (10-20); Calcium,Total 9.4 mg/dL (8.5-10.1); Chloride 108 mmol/L (98-107); Creatinine, Serum 1.77 mg/dL (0.55-1.02); EST Glomerular Filtration Rate 29 mL/min (>60); Est Glom Filt Rate - Afr Amer 36 mL/min (>60); Estimated Creatinine Clearance 29.38 ml/min; Glucose 166 mg/dL (74-106); Potassium 4.4 mmol/L (3.5-5.1); Sodium Level 140 mmol/L (136-145)
[2024-06-16 19:14] LABS: Absolute Neutrophil Count 2.8 X10^3/uL (2.0-7.7); Basophil# 0.03 X10^3/uL; Basophil% 0.6 % (0-1); Eosinophil# 0.19 X10^3/uL; Eosinophils% 3.5 % (0-5); Hematocrit 33.9 % (37-47); Hemoglobin 11.3 g/dL (12.0-15.0); Lymphocyte % 33.4 % (19-41); Mean Corp Hgb Conc 33.3 g/dL (32-36); Mean Corpuscular Hgb 32.2 pg (27.0-32.0); Mean Corpuscular Volume 96.6 fL (81-99); Mean Platelet Vol. 9.6 fl (6.2-12.0); Monocyte# 0.51 X10^3/uL; Monocyte% 9.5 % (0-10); NRBC Flagged by Analyzer 0 % (0-5); Neutrophil # 2.83 X10^3/uL (2.7-7.7); Neutrophil % 52.4 % (47-70); Platelet Count 198 K/mm3 (150-450); RBC Distribution Width CV 14.3 % (11.6-14.6); RBC Distribution Width SD 49.8 fl (35.1-43.9); Red Blood Count 3.51 M/mm3 (4.2-5.4); White Blood Count 5.4 K/mm3 (4.4-11.0)
[2024-06-16 19:19] LABS: International Normalized Ratio 1.1; Partial Thromboplast Time 27.2 Seconds (24.1-36.2)
[2024-06-16] MEDS: HYDROmorphone 0.5 MG/0.5 ML SYRINGE IV ×2 (19:24→20:49)
[2024-06-16 20:51] VITALS: BP 131/58; PULSE 72; RESP 18; TEMP 37.3; O2SAT 96
--- NOTE | 2024-06-16 21:07 | ED.RN ---
called report to Joana Mcdowell [facility]
== END 2024-06-16 21:58 | disposition short-term general hospital (02) ==
PROVIDERS: Emergency Provider Emergency Medicine; PCP Internal Medicine; Referring Provider Emergency Medicine; Visit Provider Emergency Medicine
DX: S72.91XA Unspecified fracture of right femur, initial encounter for closed fracture (principal); E11.22 Type 2 diabetes mellitus with diabetic chronic kidney disease; N18.30 Chronic kidney disease, stage 3 unspecified; E66.9 Obesity, unspecified; W10.9XXA Fall (on) (from) unspecified stairs and steps, initial encounter
CPT/HCPCS: 51702; 73560; 80048; 85025; 85610; 85730; 96374; 96376; 99285; A4216

== ENCOUNTER → 2024-06-16 | Outpatient (CLI) | payer MEDICARE, SELFPAY ==
--- NOTE | 2024-06-16 13:55 | BD_ITS ---
STUDY: DUAL ENERGY X-RAY ABSORPTIOMETRY / DXA REASON FOR EXAM: Female, 78 years old. Fracture TECHNIQUE: Bone Mineral Density (BMD) measurements of lumbar spine and bilateral hips were obtained. COMPARISON: None. FINDINGS: Lumbar Spine (L1-L4): g/cm2 (1.003) / T-score (0.2) / Z-score (2.7) Findings are suggestive of normal bone density with a low fracture risk. Left Femur Total: g/cm2 (0.779) / T-score (-1.3) / Z-score (0.6) Left Femoral Neck: g/cm2 (0.555) / T-score (-2.7) / Z-score (-0.4) Right Femur Total: g/cm2 (0.752) / T-score (-1.6) / Z-score (0.4) Right Femoral Neck: g/cm2 (0.489) / T-score (-3.2) / Z-score (-1.0) BD/Dexa Bone Density Study IMPRESSION: The patient is considered osteoporotic as outlined below according to World Brayan Organization (WHO) criteria with a high fracture risk. Reference Information: The T-score is the number of standard deviations above or below the standard which is normal for young adults at their peak bone mineral density. The World Health Organization (WHO) interprets the T-scores as follows: Above -1 Normal bone density Between -1 and -2.5 Osteopenia Equal to / or below -2.5 Osteoporosis As a practical clinical guideline, osteopenia may be graded as follows: Mild -1 through -1.5 Moderate -1.6 through -2.0 Severe -2.1 through -2.4 The Z-score is the number of standard deviations above or below age-matched controls. A Z-score of less than -1.5 would be considered abnormal. References: 1. NIH Osteoporosis and Related Bone Diseases www osteo.org 2. International Society for Clinical Densitometry www iscd.org 3. National Osteoporosis Foundation www nof.org Electronically Signed: Julio Moralez MD at 12:47 EST ,
== END | disposition home or self-care (01) ==
LOC: OPBD 13:51
PROVIDERS: PCP Internal Medicine; Referring Provider Internal Medicine Endocrinology, Diabetes & Metabolism; Visit Provider Internal Medicine Endocrinology, Diabetes & Metabolism
DX: M85.80 Other specified disorders of bone density and structure, unspecified site (principal); S42.301A Unspecified fracture of shaft of humerus, right arm, initial encounter for closed fracture
CPT/HCPCS: 77080

== ENCOUNTER → 2024-07-15 | Outpatient (CLI) | payer MEDICARE, SELFPAY ==
[2024-07-15 17:06] LABS: ALB/GLOB Ratio 0.9 RATIO (0.9-2.4); AST(SGOT) 24 U/L (15-37); Alanine Aminotransfer ALT/SGPT 21 U/L (13-56); Albumin, Serum 3.7 g/dL (3.2-5.0); Alkaline Phosphatase 149 U/L (45-117); Anion Gap 6 (5-15); BUN 39 mg/dL (7-18); BUN/Creat Ratio 21.9 RATIO (10-20); Calcium,Total 9.9 mg/dL (8.5-10.1); Chloride 108 mmol/L (98-107); Creatinine, Serum 1.78 mg/dL (0.55-1.02); EST Glomerular Filtration Rate 29 mL/min (>60); Est Glom Filt Rate - Afr Amer 35 mL/min (>60); Globulin 4.1 g/dL (2.2-4.2); Glucose 76 mg/dL (74-106); Potassium 4.4 mmol/L (3.5-5.1); Protein, Total 7.8 g/dL (6.4-8.2); Sodium Level 137 mmol/L (136-145)
== END | disposition home or self-care (01) ==
LOC: BIMLAB 14:18
PROVIDERS: Internal Medicine Endocrinology, Diabetes & Metabolism; PCP Internal Medicine; Referring Provider Internal Medicine; Visit Provider Internal Medicine
DX: E11.22 Type 2 diabetes mellitus with diabetic chronic kidney disease (principal); E66.01 Morbid (severe) obesity due to excess calories; E11.42 Type 2 diabetes mellitus with diabetic polyneuropathy; E11.69 Type 2 diabetes mellitus with other specified complication; N18.31 Chronic kidney disease, stage 3a; I12.9 Hypertensive chronic kidney disease with stage 1 through stage 4 chronic kidney disease, or unspecified chronic kidney disease; E78.5 Hyperlipidemia, unspecified; M85.80 Other specified disorders of bone density and structure, unspecified site; Z68.38 Body mass index [BMI] 38.0-38.9, adult
CPT/HCPCS: 36415; 80053

== ENCOUNTER → 2024-10-13 | Outpatient (CLI) | payer MEDICARE, SELFPAY ==
[2024-10-13 16:59] LABS: Anion Gap 14 (5-15); BUN 28 mg/dL (4-19); BUN/Creat Ratio 27.2 RATIO (10-20); Calcium,Total 9.9 mg/dL (7.6-11.0); Carbon Dioxide 23.1 mmol/L (21.0-32.0); Chloride 101 mmol/L (98-108); Cholesterol 170 mg/dL (<=200); Creatinine, Serum 1.04 mg/dL (0.70-1.20); EST Glomerular Filtration Rate 55 (>60); Glucose 112 mg/dL (70-99); High Density Lipoprotein 34 mg/dL; Low Density Lipoprotein Calc. 2 mg/dL; Potassium 4.2 mmol/L (3.3-5.1); Sodium Level 139 mmol/L (133-145); Triglycerides 672 mg/dL; Very Low Density Lipoprotein 134 mg/dL (5-40); cholesterol:hdl ratio screen 5.03
== END | disposition home or self-care (01) ==
LOC: BIMLAB 14:43
PROVIDERS: PCP Internal Medicine; Referring Provider Internal Medicine; Visit Provider Internal Medicine
DX: E11.22 Type 2 diabetes mellitus with diabetic chronic kidney disease (principal); Z79.4 Long term (current) use of insulin; N18.31 Chronic kidney disease, stage 3a
CPT/HCPCS: 36415; 80048; 80061

== ENCOUNTER → 2024-10-20 | Outpatient (CLI) | payer MEDICARE, SELFPAY ==
--- NOTE | 2024-10-20 18:21 | CT_ITS ---
PROCEDURE: EXTREMITY UPPER WITHOUT CONTRA 10/20/2024 REASON FOR EXAM: SURGICAL PLANNING FOR RTSA / BLUEPRINT CUTS TECHNIQUE: Axial CT images of the right shoulder obtained without intravenous contrast. Coronal and Sagittal reconstruction series were provided. One or more dose reduction techniques were used (e.g., Automated exposure control, adjustment of the mA and/or kV according to patient size, use of iterative reconstruction technique RADIATION DOSE SUMMARY: CTDlvol: 23 mGy DLP: 544 mGycm COMPARISON: Radiographs on 09/27/2024. FINDINGS: Mild osteopenia of the visualized bones. Chronic deformities of the humeral head and neck secondary to healed fractures. Moderate to severe degenerative joint disease of the acromioclavicular and glenohumeral joints. Elevation of the humeral head with narrowing of the subacromial space, probably secondary to chronic rotator cuff tendons tears. Moderate chronic atrophy of the supraspinatus muscle. No lytic or blastic aggressive bone lesion is identified. CT/Extremity Upper without Contra IMPRESSION: 1. No CT evidence of an acute abnormality. 2. Moderate to severe degenerative joint disease of the acromioclavicular and g lenohumeral joints. [facility]
== END | disposition home or self-care (01) ==
PROVIDERS: PCP Internal Medicine; Referring Provider Orthopaedic Surgery Sports Medicine; Visit Provider Orthopaedic Surgery Sports Medicine
DX: M19.211 Secondary osteoarthritis, right shoulder (principal); M25.511 Pain in right shoulder
CPT/HCPCS: 73200

== ENCOUNTER → 2024-10-25 | Outpatient (CLI) | payer MEDICARE, SELFPAY ==
--- NOTE | 2024-10-25 18:36 | MRI_ITS ---
COMPARISON: Multiplanar MRI was performed through the right shoulder without intravenous contrast. Images were sent through PACs for diagnostic interpretation. FINDINGS: Abnormal osseous modeling of the humeral head and neck showing contour irregularity and marrow edema of its neck, possibly sequel of old malunited fracture. The supraspinatus tendon shows intrasubstance high signal with focal near total interruption of its anterior insertional fibers. No evidence of complete fibers interruption. Thickening and intrasubstance high signal of the subscapularis tendon with partial fibers interruption. Intrasubstance high signal of the infraspinatus tendon with no evidence of complete fibers interruption. Fatty changes of its muscle belly. The teres minor tendon appears intact. High signal of the intra-articular segment of the long head of biceps tendon. Fluid signal distending its sheath. Attenuated glenoid labrum showing diffuse high signal. 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 Marginal lipping of the glenohumeral articular surface with subcortical marrow edema. Mild glenohumeral joint effusion Fluid signal distending the subcoracoid and subacromial/subdeltoid bursa. No marrow infiltrative lesions. The neurovascular bundles appear unremarkable. MRI/Upper Ext Joint Only(Routine) IMPRESSION: Abnormal osseous modeling of the humeral head and neck showing contour irregula rity and marrow edema of its neck, possibly sequel of old malunited fracture. Advanced degenerative arthropathic changes of the acromioclavicular joint with subacromial impingement. Supraspinatus tendonitis with partial thickness tear. Subscapularis tendonitis with partial thickness tear. Infraspinatus tendonitis. Tendonitis of the long head of biceps tendon. Glenohumeral degenerative arthropathy with mild joint effusion & subcoracoid an d subacromial/subdeltoid bursitis. Reading Location: [facility] [id number]
== END | disposition home or self-care (01) ==
LOC: MRI 13:03
PROVIDERS: PCP Internal Medicine; Referring Provider Internal Medicine; Visit Provider Internal Medicine
DX: R20.0 Anesthesia of skin (principal); R20.2 Paresthesia of skin; M25.511 Pain in right shoulder; G89.29 Other chronic pain
CPT/HCPCS: 73221

== ENCOUNTER 2024-12-02 13:50 | Outpatient (CLI) | payer MEDICARE, SELFPAY | END 2024-12-02 23:59 | disposition home or self-care (01) | LOC: LABSPEC 13:51 | PROVIDERS: PCP Internal Medicine; Referring Provider Physician Assistant; Visit Provider Physician Assistant | DX: R68.89 Other general symptoms and signs (principal) | CPT/HCPCS: 87631 ==

== ENCOUNTER → 2024-12-08 | Outpatient (CLI) | payer MEDICARE, SELFPAY ==
[2024-12-08 21:14] LABS: Amphetamine Urine NEGATIVE (<1000 ng/mL); Barbiturate Urine NEGATIVE (< 200 ng/mL); Benzodiazepine Urine NEGATIVE (< 200 ng/mL); Buprenorphine Urine NEGATIVE (< 200 ng/mL); Cocaine Urine NEGATIVE (< 300 ng/mL); Fentanyl, Urine NEGATIVE; Methadone Urine NEGATIVE (< 300 ng/mL); Opiates Urine NEGATIVE (< 300 ng/mL); Oxycodone, Urine NEGATIVE (< 100 ng/mL); PCP Urine NEGATIVE (< 25 ng/mL); THC Urine NEGATIVE (< 50 ng/mL)
== END | disposition home or self-care (01) ==
LOC: LAB 16:02
PROVIDERS: PCP Internal Medicine; Referring Provider Anesthesiology Pain Medicine; Visit Provider Anesthesiology Pain Medicine
DX: F11.20 Opioid dependence, uncomplicated (principal)
CPT/HCPCS: 80307

== ENCOUNTER 2024-12-29 11:39 | Observation (INO) | payer MEDICARE, SELFPAY ==
[2024-12-02 15:34] LABS: Absolute Lymphocyte Count 1.35 X10^3/uL (0.83-4.51); Absolute Neutrophil Count 4.9 X10^3/uL (2.0-7.7); Basophil# 0.04 X10^3/uL; Basophil% 0.6 % (0-1); Eosinophil# 0.14 X10^3/uL; Hematocrit 37.4 % (37-47); Lymphocyte # 1.35 X10^3/ul (0.83-4.51); Lymphocyte % 19.2 % (19-41); Mean Corp Hgb Conc 32.1 g/dL (32-36); Mean Corpuscular Hgb 31.3 pg (27.0-32.0); Mean Corpuscular Volume 97.4 fL (81-99); Mean Platelet Vol. 9.1 fl (6.2-12.0); Monocyte# 0.61 X10^3/uL; Monocyte% 8.7 % (0-10); NRBC Flagged by Analyzer 0 % (0-5); Neutrophil # 4.87 X10^3/uL (2.7-7.7); Neutrophil % 69.2 % (47-70); Platelet Count 199 K/mm3 (150-450); RBC Distribution Width CV 15.6 % (11.6-14.6); RBC Distribution Width SD 55.9 fl (35.1-43.9); Red Blood Count 3.84 M/mm3 (4.2-5.4)
[2024-12-02 15:51] LABS: Prothrombin Time (Protime)PT. 13.6 SECONDS (11.7-14.9)
[2024-12-02 16:01] LABS: Hemoglobin A1c 6.9 % (<=5.6)
[2024-12-02 16:11] LABS: Anion Gap 12 (5-15); BUN 20 mg/dL (4-19); BUN/Creat Ratio 18.5 RATIO (10-20); Calcium,Total 10.3 mg/dL (7.6-11.0); Carbon Dioxide 23.7 mmol/L (21.0-32.0); Chloride 102 mmol/L (98-108); EST Glomerular Filtration Rate 51 (>60); Glucose 123 mg/dL (70-99); Magnesium 1.8 mg/dL (1.5-2.2); Potassium 4.3 mmol/L (3.3-5.1); Sodium Level 138 mmol/L (133-145); Thyroid Stim Hormone (TSH) 0.992 uIU/mL (0.300-4.200)
[2024-12-04 07:07] LABS: Fructosamine 273 umol/L (0-285)
--- NOTE | 2024-12-22 11:27 | PAT.ANESEVAL ---
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 When Was Last Pacemaker Check QUESTION #4 FULL TEXT: You/Your Family Experience fever (hyperthermia) with Anesthesia Last Oral Intake Last Oral intake: Last Oral Intake NPO since Meds taken in AM with sips of water? Meds patient instructed to take am of surgery PONV PONV - bleacher lard: PONV - bleacher lard Female Yes 12/01/24 11:39 HX of Motion Sickness No 12/01/24 11:39 HX of N/V After Surgery No 12/01/24 11:39 Non-Smoker Yes 12/01/24 11:39 Duration of Surgery greater Yes 12/01/24 11:39 than 60 minutes Number of Risk Factors 3 12/01/24 11:39 PONV Score Moderate Risk 12/01/24 11:39 Height & Weight Height & Weight: Anesthesia: Height & Weight Height 5 ft 3 in 12/02/24 14:33 Respiratory Assessment Respiratory Assessment - bleacher lard: Respiratory Tract Infection Hx - bleacher lard Hx Respiratory Tract Infection Yes: NO FEVER, SCRATCHY 12/02/24 14:33 THROAT, STOP Sleep Apnea STOP Sleep Apnea - bleacher lard: STOP Sleep Apnea - bleacher lard Hx 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 Yes: CONTROLLED ON MED 12/02/24 14:33 Hx Sleep Apnea Yes: Tested pos/no assist. 12/02/24 14:33 CPAP No 12/02/24 14:33 BIPAP No 12/02/24 14:33 Do you snore loudly (louder than talking or can be heard Do you often feel tired/ fatigued/ sleepy during daytime? Has anyone observed you stop breathing during sleep? STOP Results Positive 12/01/24 11:39 QUESTION #5 FULL TEXT : Do you snore loudly (louder than talking or can be heard through closed doors)? 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 Specify any problems Hx of Preganancy in last 3 No 12/01/24 11:39 Months Nurse Filling Out Transfusion VCHRISTIN 12/01/24 11:39 & Questions: Date: 12/01/24 12/01/24 11:39 Time: 11:42 12/01/24 11:39 Patient unable to answer at this time (ie. confused, unrespo /Reproduction History /Reproductive History - bleacher lard: /Reproductive Hx- bleacher lard Hx Now No 12/01/24 11:39 Gestational Age (in weeks): EDC: Hx Hx Para Hx Section SAB No 12/02/24 14:33 PFSH Medical History Wears partial dentures Wears glasses Post-menopausal History of Clostridium difficile infection MRSA infection Cancer History of steroid therapy Insulin dependent diabetes mellitus Diabetes Arthritis DVT (deep venous thrombosis) Back pain History of hiatal hernia History of IBS Gastric reflux Non-smoker History of pain when walking History of echocardiogram History of stress test 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 Cardiology follow-up encounter Hx of fracture of lower leg Secondary osteoarthritis, right shoulder Right shoulder pain Osteopenia determined by x-ray Bilateral pseudophakia Amblyopia of left eye Dry eye syndrome of bilateral lacrimal glands Acute allergic conjunctivitis of both eyes Hypertriglyceridemia Encounter for long-term (current) insulin use Shingles Thyroid disease Skin cancer High cholesterol Gout Diabetes type 2, controlled Back problem Seasonal allergies Home Medications ?Medication ?Instructions ?Recorded ?Last Taken ?Type insulin syringe-needle U-100 0.3 #350 ea 01/11/18 Unknown Rx mL 31 gauge x 5/16 (BD Insulin Syringe Ultra-Fine) pen needle, diabetic 32 gauge x #350 ea 02/19/18 Unknown Rx 5/32 (BD Ultra-Fine Christy Pen Needle) cholecalciferol (vitamin D3) 25 2,000 unit PO DAILY 06/23/18 Unknown History mcg (1,000 unit) capsule aspirin 81 mg tablet,delayed 81 mg PO DAILY 07/24/20 Unknown History release mecobalamin (vitamin B12) 1,000 1,000 mcg PO DAILY 07/24/20 Unknown History mcg chewable tablet blood sugar diagnostic #100 ea 12/18/20 Unknown Rx polyethylene glycol 3350 17 4 g PO DAILY PRN constipation 01/23/23 Unknown History gram/dose oral powder (Miralax) tramadol 25 mg tablet 50 mg PO Q8H PRN pain 09/01/23 Unknown History flash glucose sensor (FreeStyle #2 ea 10/02/23 Unknown Rx Nomi 2 Sensor kit) fluticasone propionate 50 1 spray intranasal DAILY PRN 01/01/24 Unknown History mcg/actuation nasal allergy symptoms spray,suspension lisinopril 10 mg tablet 10 mg PO DAILY #90 tabs 01/23/24 Unknown Rx blood sugar diagnostic (OneTouch #100 ea 04/09/24 Unknown Rx Ultra Test strips) blood-glucose sensor (FreeStyle #6 ea 05/13/24 Unknown Rx Nomi 3 Plus Sensor device) blood-glucose,operational risk analyst,cont #1 ea 05/13/24 Unknown Rx (FreeStyle Nomi 3 [place]) pen needle, diabetic 32 gauge x #150 ea 06/14/24 Unknown Rx 32 (BD Ultra-Fine Christy Pen Needle) loratadine 10 mg tablet 10 mg PO DAILY PRN for allergies 09/20/24 Unknown Rx #90 TABLETS allopurinol 300 mg tablet 300 mg PO DAILY #90 tabs 10/13/24 Unknown Rx furosemide 20 mg tablet 20 mg PO QDAY #90 tabs 10/13/24 Unknown Rx levothyroxine 112 mcg tablet 112 mcg PO DAILY #90 tabs 10/13/24 Unknown Rx montelukast 10 mg tablet 10 mg PO DAILY #90 tabs 10/13/24 Unknown Rx rosuvastatin 20 mg tablet 20 mg PO QDAY #90 tabs 10/13/24 Unknown Rx trazodone 50 mg tablet 50 mg PO QHS PRN insomnia #90 tabs 10/13/24 Unknown Rx fenofibrate micronized 134 mg 134 mg PO DAILY #90 caps 11/02/24 Unknown Rx capsule insulin degludec 200 unit/mL (3 50 unit subcut QHS 12/01/24 Unknown History mL) subcutaneous pen (Tresiba FlexTouch U-200 insulin) metoprolol succinate 50 mg 25 mg PO DAILY 12/01/24 Unknown History tablet,extended release 24 hr pantoprazole 40 mg tablet,delayed 40 mg PO Q OTHER DAY PRN heartburn 12/01/24 Unknown History release omega-3 fatty acids 1,000 mg 1,000 mg PO QDAY 12/02/24 Unknown History capsule potassium chloride 20 mEq 20 meq PO QDAY #90 tabs 12/02/24 Unknown Rx tablet,extended release(part/cryst) (Klor-Con M) insulin aspart U-100 100 unit/mL 28 unit subcut TID 12/21/24 Unknown History (3 mL) subcutaneous pen (Novolog FlexPen U-100 Insulin aspart) Allergy/AdvReac Type Severity Reaction Status Date / Time Sulfa (Sulfonamide AdvReac Severe Upset Verified 12/21/24 13:13 Antibiotics) Stomach Penicillins AdvReac Intermediate Diarrhea Verified 12/21/24 13:13 cephalexin (From Keflex) AdvReac Nausea/Vom/ Verified 12/21/24 13:13 Diarrhea Family History Father Colon cancer Mother Diabetes Myocardial infarction Son Kidney stones Son Kidney stones Diabetes Hyperlipidemia Sister Diabetes Brother Diabetes Heart disease Sister Heart disease Diabetes COPD (chronic obstructive pulmonary disease) Surgical History Status post Mohs surgery History of knee replacement History of carpal tunnel release Hx of hernia repair H/O total hysterectomy Hx of cataract surgery Hx of cholecystectomy History of back surgery Social History household members: spouse current occupational status: retired 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 Sinus rhythm with first-degree AV block. Poor R wave progression may be secondary to pulmonary disease or consider old anterior infarct. Right axis rotation possible pulmonary disease. Stress test pertinent findings: March 15, 2021. Normal exercise SPECT myocardial perfusion study. No evidence of ischemia by EKG. EF is normal 80%. Echo (EF%) pertinent findings: June 27, 2020. EF is 69%. No significant valvular disease is identified. Consult pertinent findings: December 17, 2024. Dr. Burns. No cardiac issues need addressing prior to shoulder surgery. Recommendation Anesthesia Recommendation Anesthesia recommendation: OPTIMIZED for anesthesia
[2024-12-29] VITALS (17 sets, daily range): BP systolic 92–129; BP diastolic 41–54; PULSE 72–91; RESP 13–18; TEMP 36.1–37.2; O2SAT 92–97; BMI 33.5; BMI 33.6
--- OUTSIDE RECORDS SUMMARY | 2024-12-29 06:28 | XMS RPT_ITS | CCD ---
Author Organization [facility] CliniSyny Care Team Providers Care Public Works Manager Name Role Phone Ryan Gomez Unavailable Unavailable Mackenzie DERAS, Gerri Gasca Unavailable Faith Batista Admitting Unavailable Faith Batista Attending Unavailable Ryan Gomez Primary Care Provider Unavai Ryan Peralta Primary Care Provider Ryan Gomez Primary Care Provider Ryan Gomez Unavailable Ryan Gomez Primary Care Provider Ryan Gomez Unavailable [phone] Ryan Gomez MD Primary Care Provider Ryan Gomez MD Unavailable BARBARA RIGGINS DPKoko Primary Care Unavailable RYAN GOMEZ Consulting Unavailable BARBARA RIGGINS DPM Attending Unavailable BARBARA RIGGINS DPKoko Admitting Unavailable PROVIDER, UNKNOWN Consulting Unavailable PROVIDER, UNKNOWN Consulting Unavailable Ryan Gomez Unavailable Tracie Eugene Unavailable Unavailable Ryan Gomez MD Unavailable [phone] Ryan Gomez MD Primary Care Provider Ryan Gomez MD Unavailable Ryan Gomez Primary Care Provider Ryan Gomez MD Primary Care Provider Ryan Gomez MD Unavailable Dr. Ryan Gomez Attending Unavaila sade Gomez, Dr. Ryan Conner Primary Care Unavaila sade Gomez, Dr. Ryan Conner Referring Unavaila ble Tommaid, Dr. Ryan Conner Attending Unavaila ble Patricia, Dr. Ryan Conner Primary Care Unavaila Ryan Morton Primary Care Provider Patricia, Dr. Kingsley Primary Care Provider [phone] Patricia, Dr. Kingsley Referring Provider Dr. Yariel Florez Attending Provider Ryan Gomez MD Primary Care Provider Patricia, Dr. Kingsley Primary Care Provider Patricia, Dr. Kingsley Referring Provider [phone] Dr. Yariel Florez Attending Provider Dr. Ramón Coulter Attending Provider [phone] Ramón Coulter MD Primary Care Provider CARMEN LLANES II Attending Unavailabl e PAKO, RAMÓN G Primary Care Unavailable RYAN GOMEZ Primary Care Unavailable CARMEN LLANES II Attending UnavailRamón Gomez MD Primary Care Provider [phone] GM HOWELL Attending Unavailable PAKO, RAMÓN PURVI Primary Care Unavailable VIAUJACQUIE Referring Unavailable PAKO, RAMÓN PURVI Primary Care Unavailable Ryan Gomez MD Primary Care Provider PRICE ZALDIVAR Attending RYAN Dixon Primary Care Unavailable MAHNAZ YANG Admitting Unavailable MAHNAZ YANG Consulting Unavailable VIAUJACQUIE Consulting Unavailable PAKO, RAMÓN PURVI Primary Care Unavailable VIAU, JACQUIE MARVIN Attending Unavailable VIAUJACQUIE Referring Unavailable PAKO, RAMÓN PURVI Primary Care Unavailable VIAU, JACQUIE MARVIN Attending Unavailable VIAU, JACQUIE MARVIN Referring Unavailable PAKO, RAMÓN PURVI Primary Care Unavailable VIAU, JACQUIE MARVIN Attending Unavailable VIAU, JACQUIE MARVIN Referring Unavailable RYAN GOMEZ Primary Care Unavailable Unavailable Primary Care Provider Unavailabl e [place] MD, Ramón Purvi Primary Care Provider MIKA URIBE Referring Unavailable PAKO, RAMÓN Primary Care Unavailable ZOFIAMISSY HERRERA Referring Unavailable ZOIFA, MISSY Referring Unavailable PAKO, RAMÓN Primary Care Unavailable MIKA URIBE Attending Unavailable MIKA URIBE Attending Unavailable PAKO, RAMÓN Primary Care Unavailable ROOSEVELT LEE Referring Unavailable CHRISTY SNYDER Admitting Unavailable DENIS DE LEON Attending Unavailable Pako CHAPMAN, Dr. Francis Primary Care Provider [phone] Pako CHAPMAN, Dr. Francis Attending Provider Pako CHAPMAN, Dr. Francis Referring Provider Chris Martel MD Attending Provider [phone] Holly CHAPMAN, Dr. Shipley Attending Provider [phone] Chris Martel MD Referring Provider [phone] Pako CHAPMAN, Dr. Francis Primary Care Provider [phone] Pako CHAPMNA, Dr. Francis Attending Provider Pako CHAPMAN, Dr. Francis Referring Provider King ADELA, Dr. Saldivar Attending Provider Bharat Doss Attending Provider [phone] Bharat Doss Referring Provider [phone] Purvi CHAPMAN, Dr. Hadley Attending Provider Purvi CHAPMAN, Dr. Hadley Referring Provider SEEMA VILLAR Attending Unavail able RYAN GOMEZ Primary Care Unavailable KALIE MARLOW Attending Unavailab RYAN Wilson Primary Care Unavailable PAKO, RAMÓN PURVI Primary Care Unavailable BENJAMIN PINEDA Attending Unavaila ble PAKO, RAMÓN PURVI Primary Care Unavailable RYAN FLOYD Attending Unavailable VIAJACQUIE Miller Attending Unavailable PAKO, RAMÓN PURVI Primary Care Unavailable VIAPaul, JACQUIE MARVIN Attending Unavailable PAKO, RAMÓN PURVI Primary Care Unavailable DAYANA MOREAU Attending Unavailab le PAKO, RAMÓN PURVI Primary Care Unavailable JACQUIE FIELDS Attending Unavailable PAKO, RAMÓN PURVI Primary Care Unavailable PAKO, RAMÓN PURVI Primary Care Unavailable JACQUIE CARRILLO Attending Unavailable JACQUIE FIELDS Attending Unavailable PAKO, RAMÓN PURVI Primary Care Unavailable Pako, Ramón Primary Care Unavailable Chris Martel Attending Unavailable Guilleison, Chris Referring Unavailable Jabour, Vincent Referring Unavailable JabourStanent Attending Unavailable Pako, Ramón Primary Care Unavailable Chris Martel Attending Unavailable Pako, Ramón Referring Unavailable [place], Ramón Primary Care Unavailable Jabour, Stanent Attending Unavailable Jabour, Vincent Referring Unavailable Pako, Ramón Primary Care Unavailable Pako, Ramón Attending Unavailable Pako, Ramón Referring Unavailable Pako, Ramón Primary Care Unavailable Bharat Doss Referring Unavailable Bharat Doss Attending Unavailable Pako, Ramón Primary Care Unavailable Roosevelt Lee Attending Unavailable Roosevelt Lee Referring Unavailable [place], Ramón Primary Care Unavailable [place], Ramón Referring Unavailable Gautam, Yariel Attending Unavailable Pako, Ramón Primary Care Unavailable Chris Martel Attending Unavailable [place], Ramón Referring Unavailable Pako, Ramón Primary Care Unavailable [place], Ramón Referring Unavailable Bharat Doss Attending Unavailable [place], Ramón Primary Care Unavailable Pako, Ramón Primary Care Unavailable Quinten Barrera Attending Unavailable Gautam, Yariel Attending Unavailable [place], Ramón Referring Unavailable [place], Ramón Primary Care Unavailable [place], Ramón Attending Unavailable Pako, Ramón Referring Unavailable Pako, Ramón Primary Care Unavailable [place], Ramón Attending Unavailable [place], Ramón Referring Unavailable [place], Ramón Primary Care Unavailable [place], Ramón Attending Unavailable [place], Ramón Referring Unavailable Pako, Ramón Primary Care Unavailable Gautam, Yariel Attending Unavailable Gautam, Yariel Referring Unavailable Pako, Ramón Primary Care Unavailable [place], Ramón Referring Unavailable Bharat Doss Attending Unavailable Pako, Ramón Primary Care Unavailable [place], Ramón Primary Care Unavailable [place], Ramón Referring Unavailable Pako, Ramón Attending Unavailable WayBharat Castro Attending Unavailable Wayt Bharat TALLEY Referring Unavailable [place], Ramón Primary Care Unavailable Chris Martel Attending Unavailable Chris Martel Referring Unavailable [place], Ramón Primary Care Unavailable Pako, Ramón Referring Unavailable [place], Ramón Attending Unavailable Pako, Ramón Primary Care Unavailable [place], Ramón Referring Unavailable WayBharat Castro Attending Unavailable Pako, Ramón Primary Care Unavailable Basali Ayman Attending Unavailable Basali, Ayman Referring Unavailable [place], Ramón Primary Care Unavailable Bharat Doss Attending Unavailable Tameka TALLEY, Bharat Referring Unavailable Pako, Ramón Primary Care Unavailable Yariel Florez Attending Unavailable Ryan Gomez Referring Unavailable [place], Ramón Primary Care Unavailable [place], Ramón Attending Unavailable Pako, Ramón Referring Unavailable Pako, Ramón Primary Care Unavailable Pako, Ramón Referring Unavailable Wayt PABharat Attending Unavailable Pako, Raómn Primary Care Unavailable [place], Ramón Referring Unavailable Wayt PA, Bharat Attending Unavailable Pako, Ramón Primary Care Unavailable Basali Ayman Attending Unavailable Basali, Ayman Referring Unavailable [place], Ramón Primary Care Unavailable Allergies Allergy Classification Reported Allergen(s) Allergy Type Date of Onset Reaction(s) Facility exenatide (2 sources) exenatide; Translations: [EXENATIDE] Drug Allergy 02-08-20 11 Intolerance [facility] Work Phone: HMG-CoA Reductase Inhibitors (statins) (4 sources) atorvastatin; Translations: [ATORVASTATIN] Drug Allergy 12-20-19 16 Myalgia [facility] Sulfonamides (antibiotic) (2 sources) Sulfonamides (Antibiotic); Translations: [SULFA (SULFONAMIDE ANTIBIOTICS)] Drug Allergy 02-20-20 12 Other: See Comments [facility] (20 sources) atorvastatin; Translations: [ATORVASTATIN] Propensity to adverse reactions to drug 12-20-19 16 Other (See Comments), Myalgia [facility] Work Phone: (20 sources) exenatide; Translations: [EXENATIDE] Propensity to adverse reactions to drug 02-08-20 11 Other (See Comments), Intolerance [facility] Work Phone: (20 sources) lovastatin; Translations: [LOVASTATIN] Propensity to adverse reactions to drug 12-25-19 16 Other (See Comments), Myalgia [facility] Work Phone: (20 sources) Sulfonamides (Antibiotic); Translations: [SULFA (SULFONAMIDE ANTIBIOTICS)] Propensity to adverse reactions to drug 06-21-20 15 Unknown [facility] Work Phone: (1 source) Sulfonamides (Antibiotic) drug allergy 01-22-20 17 [facility] Work Phone: (20 sources) Sulfonamides (Antibiotic) Propensity to adverse reactions to drug 02-20-20 12 Unknown, Other: See Comments, Diarrhea [facility] (1 source) Sulfonamides (Antibiotic) Swelling/Edema [facility] (20 sources) Cephalexin; Translations: [CEPHALEXIN] Drug Allergy 01-09-20 24 GI Intolerance, Diarrhea [facility] (9 sources) Penicillins; Translations: [PENICILLINS] Drug Intolerance 05-13-20 24 Diarrhea [facility] (7 sources) Penicillins Propensity to adverse reactions 10-14-19 25 Diarrhea [facility] (1 source) Penicillins Propensity to adverse reactions to drug 05-13-20 24 Diarrhea [facility] (1 source) Cephalexin Drug Allergy 12-22-19 25 [facility] (1 source) Penicillins Drug allergy (disorder) 12-22-19 25 [facility] (1 source) Sulfonamides (Antibiotic) Drug allergy (disorder) 12-22-19 25 [facility] Medications Current Medications Medication Drug Class(es) Dates Sig (Normalized) Sig (Original) acetaminophen 500 mg oral tablet (11 sources) Start: 06-21-2024 End: 07-01-2024 take 2 tablets by mouth every eight hours acetaminophen (Tylenol) 500 MG tablet Take 2 tablets (1,000 mg) by mouth every 8 hours for 10 days. 06/21/2024 07/01/2024 Active Start: 06-17-2024 End: 06-21-2024 take 1 tablet by mouth every six hours as needed for pain and fever acetaminophen (Tylenol) tablet 650 mg Start: 06-17-2024 End: 06-21-2024 take 1 tablet by mouth every eight hours 1,000 mg, Oral, Every 8 hours, First dose on Jen 06/17/24 at 0335, Maximum dose of acetaminophen is 4000 mg from all sources in 24 hours. Start: 03-25-2024 End: 04-04-2024 take 2 tablets by mouth every eight hours acetaminophen (Tylenol Extra Strength) 500 MG tablet Take 2 (two) tablets (1,000 mg total) by mouth every 8 (eight) hours for 10 days . 60 tablet 03/25/2024 04/04/2024 Active acetaminophen 325 mg / oxyCODONE hydrochloride 5 mg oral tablet (1 source) Opioid Agonist Start: 04-06-2024 End: 04-13-2024 oxyCODONE-acetaminophen (PERCOCET) 5-325 mg per tablet Indications: Adhesive capsulitis of right shoulder Take 1 (one) tablet by mouth every 6 (six) hours as needed for pain (Days supply per fill: 7) . 28 tablet 04/06/2024 04/13/2024 Active amoxicillin 875 mg oral tablet (1 source) Penicillin-class Antibacterial Start: 08-20-2021 End: 08-26-2021 take 1 tablet by mouth twice daily amoxicillin 875 mg oral tablet ; 1 tab(s) orally 2 times a day x 7 days Quantity: 14 Refills: 0 Ordered: 20-Aug-2021 Tracie Eguene Start: 20-Aug-2021 End: 26-Aug-2021 Status: Discontinued Generic Substitution Allowed Comments: Finish all this medication unless otherwise directed by prescriber. Comment on above: Finish all this medi cation unless otherwise directed by prescriber. amoxicillin 875 mg / clavulanate 125 mg oral tablet (1 source) Penicillin-class Antibacterial Start: 08-20-2021 End: 08-26-2021 take 1 tablet by mouth twice daily at mealtime amoxicillin-clavulanate 875 mg-125 mg oral tablet ; 1 tab(s) orally 2 times a day x 7 days . Take with food. Quantity: 14 Refills: 0 Ordered: 20-Aug-2021 Tracie Eugene Start: 20-Aug-2021 End: 26-Aug-2021 Generic Substitution Allowed Comments: Finish all this medication unless otherwise directed by prescriber.Take with food or milk. Comment on above: Finish all this medi cation unless otherwise directed by prescriber.Take with food or milk. aspirin 81 mg delayed release oral tablet (20 sources) Nonsteroidal Anti-inflammatory Drug Start: 07-24-2020 End: 06-21-2024 take 1 tablet by mouth once daily aspirin 81 MG EC tablet Take 1 (one) tablet (81 mg total) by mouth daily . 90 tablet 1 02/27/2021 Active Aspirin 81 mg OR AL Tab Take 81 mg by mouth. 0 Active Comment on above: Take 81 mg by mouth. benoxinate hydrochloride 4 mg/ml / fluorescein sodium 3 mg/ml ophthalmic solution (3 sources) Diagnostic Dye Start: 12-25-2023 End: 12-25-2023 fluorescein-benoxin ate 0.3-0.4 % 1 Drop (FLURESS) Start: 12-11-2021 End: 12-11-2021 fluorescein-benoxinate 0.25- 0.4 % 1 Drop (FLURESS) Blood-Glucose Meter,Continuous (Freestyle Nomi 3 [place]) misc (2 sources) Start: 05-13-2024 Blood-Glucose Meter,Continuous (Freestyle Nomi 3 [place]) misc Active 0 .Route May 13, 2024 1:00am As directed Blood-Glucose Sensor (Freestyle Nomi 3 Plus Sensor) device (7 sources) Start: 05-13-2024 Blood-Glucose Sensor (Freestyle Nomi 3 Plus Sensor) device Active 0 .Route May 13, 2024 1:00am As directed Blood-Glucose,Receive r,Cont (Freestyle Nomi 3 [place]) misc (5 sources) Start: 05-13-2024 Blood-Glucose,Receiv er,Cont (Freestyle Nomi 3 [place]) misc Active 0 .Route May 13, 2024 1:00am As directed brompheniramine maleate 0.4 mg/ml / dextromethorphan hydrobromide 2 mg/ml / pseudoephedrine hydrochloride 6 mg/ml oral solution (1 source) alpha-Adrenergic Agonist, Uncompetitive B-iajlqk-F-asparta te Receptor Antagonist, Sigma-1 Agonist Start: 08-20-2021 End: 08-29-2021 take 10 mL by mouth every six hours as needed brompheniramine/pseu doephedrine/dextrome thorphan [id number]/5 mL oral syrup ; 10 milliliter(s) orally every 6 hours, As Needed for cough/congestion Quantity: 400 Refills: 0 Ordered: 20-Aug-2021 ValorieTracie Lady Start: 20-Aug-2021 End: 29-Aug-2021 Generic Substitution Allowed Comments: May cause drowsiness. Alcohol may intensify this effect. Use care when operating dangerous machinery.Obtain medical advice before taking any non-prescription drugs as some may affect the action of this medication. Comment on above: May cause drowsiness . Alcohol may intensify this effect. Use care when operating dangerous machinery.Obtain medical advice before taking any non-prescription drugs as some may affect the action of this medication. Cetirizine (4 sources) Histamine-1 Receptor Antagonist CETIRIZINE HCL (ALLERGY RELIEF, CETIRIZINE, ORAL) Take by mouth. 0 Active Comment on above: Take by mouth. cholecalciferol 0.025 mg oral capsule (20 sources) Vitamin D Start: 06-23-2018 take 2 capsules by mouth once daily Cholecalciferol (Vitamin D3) 1,000 unit capsule Active 2000 U PO DAILY June 23, 2018 1:00am Start: 06-23-2018 take 1 capsule by [facility] once daily Cholecalciferol (Vitamin D3) 1,000 unit capsule Active 1000 U PO DAILY June 23, 2018 1:00am take 1 capsule by [facility] twice daily cholecalciferol, vitamin D3, 25 mcg (1,000 unit) capsule Take 1 (one) capsule (1,000 Units total) by mouth 2 (two) times a day . Active Cholecalciferol, Vitamin D3, (VITAMIN D) 25 mcg (1,000 unit) cap Take 1,000 Units by mouth once daily. 0 Active Comment on above: Take 1,000 Units by mouth once daily. dexamethasone 0.001 mg/mg / neomycin 0.0035 mg/mg / polymyxin b 10 unt/mg ophthalmic ointment (2 sources) Aminoglycoside Antibacterial, Polymyxin-class Antibacterial, Corticosteroid Start: 2022 neomycin/polymyxin b/dexametha(MAXITROL 3.5 MG/G-10,000 UNIT/G-0.1 % EYE OINTMENT) Use 1 application in both eyes two times a day. 3.5 g 0 04/16/2023 Active Comment on above: Use 1 application in both eyes two times a day. docusate sodium 100 mg oral capsule (4 sources) Start: 2023 End: 2023 take 1 capsule by mouth twice daily docusate sodium (COLACE) 100 MG capsule Take 1 (one) capsule (100 mg total) by mouth 2 (two) times a day for 10 days . 20 capsule 03/25/2024 04/04/2024 Active 0.4 ml enoxaparin sodium 100 mg/ml prefilled syringe (7 sources) Low Molecular Weight Heparin Start: 2023 End: 2024 inject 0.4 mL by subcutaneous injection every twenty-four hours in the evening enoxaparin (Lovenox) 40 MG/0.4ML solution prefilled syringe Indications: Prophylaxis of Venous Thromboembolism Inject 0.4 mL (40 mg) under the skin every 24 hours. 30 each 06/21/2024 3:03 PM EST 06/22/2024 07/22/2024 Active Start: 06-18-2024 End: 06-21-2024 inject 40 mg by subcutaneous injection every twenty-four hours 40 mg, SubCUTAneous, Every 24 hours scheduled (Daily), First dose on Fri06/18/24 at 1230, Indication of Use: Prophylaxis-DVT/PE, Indications: Prophylaxis of Venous Thromboembolism fenofibrate 134 mg oral capsule (20 sources) Peroxisome Proliferator Receptor alpha Agonist Start: 03-18-2019 End: 09-20-2024 take 1 capsule by mouth once daily Fenofibrate Micronized 134 mg capsule Active 134 mg PO DAILY November 02, 2024 11:47am Start: 12-15-2018 End: 12-15-2019 take 1 capsule by mouth once daily at mealtime fenofibrate micronized (LOFIBRA) 67 MG capsule Take 1 (one) capsule (67 mg total) by mouth daily Give with food . 30 capsule 12/15/2018 03/18/2019 Discontinued (Reorder) Comment on above: Take 134 mg by mouth . fish oil (2 sources) take 1 capsule by mouth once daily fish oil-omega-3 fatty acids 300-1,000 mg capsule Take 2 g by mouth daily. Active fish oil-omega-3 fatty acids 300-1,000 mg capsule (14 sources) take 1 capsule by mouth once daily fish oil-omega-3 fatty acids 300-1,000 mg capsule Take 2 g by mouth daily. 0 Active Flash Glucose Sensor (Freestyle Nomi 2 Sensor) kit (10 sources) Start: 4 Flash Glucose Sensor (Freestyle Nomi 2 Sensor) kit Active 0 .Route 2 October 02, 2023 12:00am As directed fluticasone propionate 0.05 mg/actuat metered dose nasal spray (20 sources) Corticosteroid Start: take 50 ug nasal route once daily Fluticasone Propionate (Flonase Allergy Relief) 50 mcg/actuation spray,suspension Active 2 NMA INTRANASAL daily December 02, 2024 12:00am administer into each nostril Start: 01-23-2023 End: 01-01-2024 take 50 ug nasal route once daily Fluticasone Propionate (Flonase Allergy Relief) 50 mcg/actuation spray,suspension Active 2 NMA INTRANASAL daily December 02, 2024 12:00am administer into each nostril Start: 01-23-2023 take 1 spray(s) nasa l route once daily Fluticasone Propionate Active 1 SPRAY INTRANASAL DAILY January 23, 2023 12:00am administer into each nostril Start: 06-20-2015 take 1 spray(s) nasa l route once daily fluticasone (FLONASE) 50 mcg/actuation nasal spray Instill 1 (one) spray into each nostril daily . 06/20/2015 Active Comment on above: Use 1 [place] in each nostril once daily. hydroCHLOROthiazide 25 mg / triamterene 37.5 mg oral tablet (20 sources) Potassium-sparing Diuretic, Thiazide Diuretic Start: 09-20-2019 triamterene-hydroc hlorothiazide (MAXZIDE-25) 37.5-25 mg per tablet Start: 11-02-2018 End: 06-16-2020 take 1 tablet by mouth once daily triamterene-hydrochlorothiazide (MAXZIDE ) 75-50 mg per tablet Indications: Essential hypertension Take 1 (one) tablet by mouth daily . 90 tablet 3 09/02/2019 06/16/2020 Discontinued (Discontinued by another clinician) Start: 12-19-2016 End: 08-10-2018 take 1 tablet by mouth once daily triamterene-hydrochlorothiazide (MAXZIDE ) 75-50 mg per tablet Indications: Essential hypertension Take 1 (one) tablet by mouth daily . 90 tablet 3 08/10/2018 Active 3 ml insulin aspart, human 100 unt/ml pen injector (20 sources) Insulin Analog Start: 01-01-2024 Insulin Aspart U-100 (Novolog Flexpen U-100 Insulin) 100 unit/mL (3 mL) insulin pen Active 40 U SC THREE TIMES A DAY 48 January 01, 2024 10:55am plus sliding scale Start: 2022 NOVOLOG FLEXPE N U-100 INSULIN 100 unit/mL (3 mL) 34 UNIT (0.34 ML) SUBCUTANEOUSLY THREE TIMES A DAY 0 2022 Active Start: 10-10-2022 End: 01-01-2024 Insulin Aspart U-100 (Novolo g Flexpen U-100 Insulin) 100 unit/mL (3 mL) insulin pen Discontinued 34 U SC THREE TIMES A DAY July 17, 2023 1:48pm January 01, 2024 10:56am Start: 09-10-2018 End: 12-18-2020 Insulin Aspart U-100 (Novolo g Flexpen U-100 Insulin) 100 unit/mL insulin pen Discontinued 0 SC THREE TIMES A DAY September 10, 2018 5:56pm December 18, 2020 10:19am 25 units + sliding scale up to 90 units q d SC TID; Comment on above: 34 UNIT (0.34 ML) TINAJERO BCUTANEOUSLY THREE TIMES A DAY Insulin Degludec (Tresiba Flextouch U-200) 200 unit/mL (3 mL) insulin pen (17 sources) Start: 12-01-2024 Insulin Degludec (Tresiba Flextouch U-200) 200 unit/mL (3 mL) insulin pen Active 50 U SC AT BEDTIME December 01, 2024 12:00am Start: 10-27-2024 End: 12-01-2024 Insulin Degludec (Tresiba Fl extouch U-200) 200 unit/mL (3 mL) insulin pen Discontinued 70 U SC AT BEDTIME 31.52 October 27, 2024 4:08pm December 01, 2024 11:26am Start: 02-20-2024 End: 10-27-2024 Insulin Degludec (Tresiba Fl extouch U-200) 200 unit/mL (3 mL) insulin pen Discontinued 55 U SC AT BEDTIME February 20, 2024 10:56am October 27, 2024 4:08pm Start: 02-20-2024 Insulin Deglud ec (Tresiba Flextouch U-200) 200 unit/mL (3 mL) insulin pen Active 55 U SC AT BEDTIME February 20, 2024 10:56am Insulin Syringe-Needle U-100 (BD ULTRAFINE INSULIN) 1 mL 31 x 5/16 syrg (4 sources) Start: 09-19-2015 Insulin Syringe-Needle U-100 (BD ULTRAFINE INSULIN) 1 mL 31 x 5/16 syrg USE WITH INSULIN INJECTIONS one daily dx 100 Syringe 3 09/19/2015 Active Comment on above: USE WITH INSULIN INJ ECTIONS one daily dx Insulin Syringe-Needle U-100 (ULTRA FINE INSULIN) 1 mL 30 x 1/2 syrg (4 sources) Start: 07-05-2014 Insulin Syringe-Needle U-100 (ULTRA FINE INSULIN) 1 mL 30 x 1/2 syrg Indications: Type II or unspecified type diabetes mellitus without mention of complication, uncontrolled use as directed three times daily 100 Syringe 11 07/05/2014 Active Comment on above: use as directed thre e times daily 24 hr isosorbide mononitrate 30 mg extended release oral tablet (7 sources) Nitrate Vasodilator Start: 05-19-2024 End: 05-19-2025 take 1 tablet by mouth once daily isosorbide mononitrate (IMDUR) 30 MG 24 hr tablet Take 1 (one) tablet (30 mg total) by mouth daily . 30 tablet 11 05/19/2024 05/19/2025 Active lisinopril 10 mg oral tablet (20 sources) Angiotensin Converting Enzyme Inhibitor Start: 12-18-2020 End: 06-21-2024 take 1 tablet by mouth once daily lisinopriL (PRINIVIL,ZESTRIL) 10 MG tablet Take 1 (one) tablet (10 mg total) by mouth daily . 90 tablet 3 05/19/2024 Active Start: 12-18-2020 Lisinopril Act [place] MG PO December 18, 2020 12:00am Comment on above: Take 1 tablet by elia th once daily. mecobalamin 1 mg chewable tablet (11 sources) Start: 1 take 1 tablet by mouth once daily Mecobalamin (Vitamin B12) 1,000 mcg tablet,chewable Active 1000 ug PO DAILY July 24, 2020 1:00am meloxicam 15 mg oral tablet (3 sources) Nonsteroidal Anti-inflammatory Drug Start: End: 5 take 1 tablet by mouth once daily meloxicam (MOBIC) 15 MG tablet Indications: Humeral head fracture, right, closed, initial encounter Take 1 (one) tablet (15 mg total) by mouth daily . 90 tablet 3 06/08/2024 06/08/2025 Active 24 hr metoprolol succinate 50 mg extended release oral tablet (20 sources) beta-Adrenergic Kenny Start: 5 take 2 tablets by mouth once daily Metoprolol Succinate 50 mg tablet extended release 24 hr Active 25 mg PO DAILY December 01, 2024 12:00am Start: 05-19-2024 End: 05-19-2025 take 1 tablet by mouth once daily metoprolol succinate (Toprol XL) 25 MG 24 hr tablet Take 1 (one) tablet (25 mg total) by mouth daily . 30 tablet 11 05/19/2024 05/19/2025 Active Start: 01-23-2023 End: 12-01-2024 take 2 tablets by mouth twice daily Metoprolol Succinate 50 mg tablet extended release 24 hr Discontinued 25 mg PO TWICE A DAY 180 October 13, 2023 2:21pm December 01, 2024 11:26am Start: 01-23-2023 End: 10-13-2023 take 25 mg by mouth twice daily Metoprolol Succinate A ctive 25 MG PO TWICE A DAY 180 October 13, 2023 2:21pm Start: 04-05-2022 End: 05-19-2024 take 0.5 tablet by mouth twice daily metoprolol tartrate (LOPRESSOR) 50 MG tablet TAKE 0.5 (ONE-HALF) TABLET (25 MG TOTAL) BY MOUTH 2 (TWO) TIMES A DAY . 90 tablet 3 05/20/2023 05/19/2024 Discontinued (Alternate therapy) Start: 09-03-2021 End: 04-05-2022 take 1 tablet by mouth twice daily metoprolol tartrate (LOPRESSOR) 50 MG tablet TAKE 1 TABLET BY MOUTH TWICE A DAY 180 tablet 1 09/03/2021 04/05/2022 Discontinued Start: 07-15-2017 End: 01-23-2023 take 1 tablet by mouth once daily Metoprolol Succinate 50 mg tablet extended release 24 hr Discontinued 50 mg PO daily July 15, 2017 1:00am January 23, 2023 10:58am Start: 05-30-2015 End: 02-27-2021 take 1 tablet by mouth twice daily metoprolol tartrate (LOPRESSOR) 50 MG tablet Take 50 mg by mouth 2 (two) times a day . 0 05/30/2015 07/26/2020 Discontinued (Reorder (Suppress CancelRx Message to Pharmacy)) Comment on above: Take 50 mg by mouth twice daily. montelukast 10 mg oral tablet (20 sources) Leukotriene Receptor Antagonist Start: 4 End: 5 take 1 tablet by mouth once daily montelukast (SINGULAIR) 10 mg tablet Take 1 (one) tablet (10 mg total) by mouth daily . 04/09/2015 Active Comment on above: once daily. MULTI-VITAMIN ORAL (4 sources) MULTI-VITAMIN OR AL Take by mouth. 0 Active Comment on above: Take by mouth. NOVOLIN R 100 unit/mL injection (1 source) Start: 5 NOVOLIN R 100 unit/mL injection Indications: 25 units before meals [id number] units before meals. 06/04/2015 Active Esbon-3 Fatty Acids (4 sources) Start: 3 take 1000 mg by mouth twice daily Esbon-3 Fatty Acids Active 1000 MG PO TWICE A DAY January 23, 2023 12:00am Esbon-3 Fatty Acids 1,000 mg capsule (12 sources) Start: 5 take 1 capsule by mouth once daily Esbon-3 Fatty Acids 1,000 mg capsule Active 1000 mg PO daily December 02, 2024 1:04pm Start: 01-23-2023 End: 12-02-2024 take 1 capsule by mouth twice daily Esbon-3 Fatty Acids 1,000 mg capsule Discontinued 1000 mg PO TWICE A DAY January 23, 2023 12:00am December 02, 2024 1:05pm Start: 01-23-2023 take 1 capsule by mo [facility] twice daily Esbon-3 Fatty Acids 1,000 mg capsule Active 1000 mg PO TWICE A DAY January 23, 2023 12:00am OMEGA-3 FATTY ACIDS-FISH OIL ORAL (20 sources) take 1 g by mouth tw ice daily OMEGA-3 FATTY ACIDS-FISH OIL ORAL Take 1 g by mouth 2 (two) times a day . Active take 1 g by mouth twice daily OM EGA-3 FATTY ACIDS-FISH OIL ORAL Take 1 g by mouth 2 (two) times a day . 0 Active Vnsam-8-VAG-EPA-Fish Oil 1,200 (144-216) mg Cap (4 sources) Start: 01-15-2012 Jsqvw-6-XRQ-EPA-Fish Oil 1,200 (144-216) mg Cap Take 2,400 mg by mouth twice daily. 0 01/15/2012 Active Comment on above: [facility] oxyCODONE hydrochloride 5 mg oral tablet (8 sources) Opioid Agonist Start: 06-21-2024 End: 06-26-2024 take 1 tablet by mouth every four hours as needed for pain oxyCODONE (Roxicodone) 5 MG immediate release tablet Indications: Closed fracture of distal end of right femur, unspecified fracture morphology, initial encounter ([facility]) Take 1 tablet (5 mg) by mouth every 4 hours as needed for severe pain (7-10) for up to 5 days. 15 tablet 06/21/2024 3:03 PM EST 06/21/2024 06/26/2024 Active Start: 06-17-2024 End: 06-21-2024 take 1 tablet by mouth every four hours as needed for pain oxyCODONE (Roxicodone) immediate release tablet 2.5 mg Start: 03-25-2024 End: 04-01-2024 oxyCODONE (ROXICODONE) 5 MG immediate release tablet Indications: Closed fracture of proximal end of right humerus, unspecified fracture morphology, initial encounter Take 1 (one) tablet (5 mg total) by mouth every 6 (six) hours as needed (Days supply per fill: 7) . 28 tablet 03/25/2024 04/01/2024 Active pantoprazole 40 mg delayed release oral tablet (20 sources) Proton Pump Inhibitor Start: 10-13-2024 End: 12-01-2024 take 1 tablet by mouth every other day as needed for gastroesophageal reflux disease Pantoprazole 40 mg tablet,delayed release (DR/EC) Active 40 mg PO every other day as needed for heartburn December 01, 2024 12:00am Start: 10-10-2024 End: 10-13-2024 take 1 tablet by mouth once daily as needed for gastroesophageal reflux disease Pantoprazole 40 mg tablet,delayed release (DR/EC) Discontinued 40 mg PO daily as needed for heartburn October 10, 2024 8:27pm October 13, 2024 2:33pm Start: 07-15-2017 End: 09-20-2024 take 1 tablet by mouth once daily Pantoprazole 40 mg tablet,delayed release (DR/EC) Discontinued 40 mg PO daily July 15, 2024 2:53pm September 20, 2024 1:29pm take 40 mg by mouth once daily P ANTOPRAZOLE SODIUM (PANTOPRAZOLE ORAL) Take 40 mg by mouth once daily. 0 Active take 1 tablet by mouth once cecy y PANTOPRAZOLE SODIUM 40 MG SOLR One tablet by mouth daily PANTOPRAZOLE SODIUM [id number] Gerri Mann NP Comment on above: Take 40 mg by mouth once daily. phenylephrine hydrochloride 25 mg/ml ophthalmic solution (3 sources) alpha-1 Adrenergic Agonist Start: 12-25-2023 End: 12-25-2023 PHENYLephrine 2.5 % 1 Drop (AK-DILATE, ADELINA-SYNEPHRINE) Start: 12-18-2022 End: 12-18-2022 PHENYLephrine 2.5 % 1 Drop ( AK-DILATE, ADELINA-SYNEPHRINE) polyethylene glycol 3350 02173 mg powder for oral solution (19 sources) Osmotic Laxative Start: 06-17-2024 End: 06-24-2024 take 17 g by mouth every twenty-four hours as needed polyethylene glycol, PEG, 3350 (Miralax) 17 g packet Take 17 g by mouth Daily as needed (constipation) for up to 3 days. 06/21/2024 06/24/2024 Active Start: 01-23-2023 Polyethylene G lycol 3350 (Miralax) 17 gram/dose powder Active 4 g PO DAILY as needed for constipation January 23, 2023 12:00am Start: 07-30-2016 polyethylene g lycol 3350 (MIRALAX, GLYCOLAX) 17 gram/dose powder Indications: Slow transit constipation Take 17 g by mouth once daily. Take one (1) capful in 8oz of liquid each day. 527 g 11 07/30/2016 Active Comment on above: Take 17 g by mouth o nce daily. Take one (1) capful in 8oz of liquid each day. microencapsulated potassium chloride 20 meq extended release oral tablet (20 sources) Start: 05-30-2015 End: 02-27-2021 take 1 tablet by mouth every other day Klor-Con M20 20 mEq tablet Take 1 (one) tablet (20 mEq total) by mouth every other day . 45 tablet 1 02/27/2021 Active Start: 05-30-2015 take 1 tablet by elia th once daily, then take 1 tablet by mouth KLOR-CON M20 20 mEq tablet Take 20 mEq by mouth daily . 05/30/2015 Active Start: 05-30-2015 End: 12-02-2024 Potassium Chloride (Klor-Con M20) 20 mEq tablet,ER particles/crystals Discontinued 20 meq PO daily September 21, 2024 9:48am December 02, 2024 2:09pm take 1 tablet by elia th twice daily K-Dur 20 oral tablet, extended release ; 1 tab(s) orally 2 times a day Quantity: 0 Refills: 0 Ordered: 20-Aug-2021 Harpal, Kelsey Generic Substitution Allowed Comment on above: Take 20 mEq by mouth once daily. Propylene glycol (2 sources) propylene glycol (SYSTANE BALANCE OPHTHALMIC) Use in eyes. 0 Active Comment on above: Use in eyes. rosuvastatin calcium 20 mg oral tablet (20 sources) HMG-CoA Reductase Inhibitor Start: 8 End: take 1 tablet by mouth once daily rosuvastatin (CRESTOR) 20 MG tablet Take 1 (one) tablet (20 mg total) by mouth daily . 90 tablet 1 02/27/2021 Active take 1 capsule by mouth once ruy ly rosuvastatin 20 mg oral capsule ; 1 cap(s) orally once a day Quantity: 0 Refills: 0 Ordered: 20-Aug-2021 Harpal, Kelsey Generic Substitution Allowed Comment on above: Take 20 mg by mouth once daily. therapeutic multivitamin (THERAGRAN) tablet (20 sources) take 1 tablet by mouth once daily therapeutic multivitamin (THERAGRAN) tablet Take 1 (one) tablet by mouth daily . Active take 1 tablet by mouth once cecy y therapeutic multivitamin (THERAGRAN) tablet Take 1 (one) tablet by mouth daily . 0 Active take 1 tablet by mouth once cecy y therapeutic multivitamin (THERAGRAN) tablet Take 1 tablet by mouth daily. 0 Active take 1 tablet by mouth once cecy y therapeutic multivitamin (THERAGRAN) tablet Take 1 tablet by mouth daily. Active levothyroxine sodium 0.112 mg oral tablet (20 sources) l-Thyroxine Start: 03-16-2019 End: 10-13-2024 take 1 tablet by mouth once daily levothyroxine (SYNTHROID, LEVOTHROID) 112 MCG tablet Take 1 (one) tablet (112 mcg total) by mouth once daily . 03/16/2019 Active Start: 07-15-2017 End: 12-18-2020 Levothyroxine (Levo-T) 125 m cg tablet Discontinued PO July 15, 2017 1:00am December 18, 2020 10:18am Start: 04-24-2015 End: 08-03-2019 levothyroxine (SYNTHROID, LE VOTHROID) 100 MCG tablet Take 125 mcg by mouth daily . 0 04/24/2015 08/03/2019 Discontinued (Dose adjustment) Start: 06-28-2013 take 1 tablet by elia th once daily levothyroxine (SYNTHROID) 100 mcg tablet Take 1 tablet by mouth once daily. 0 06/28/2013 Active take 1 tablet by elia th once daily levothyroxine 112 mcg (0.112 mg) oral tablet ; 1 tab(s) orally once a day Quantity: 0 Refills: 0 Ordered: 20-Aug-2021 Kelsey Rowan Generic Substitution Allowed take 1 tablet by elia th once daily LEVO-T 125 MCG TABS One tablet by mouth daily LEVOTHYROXINE SODIUM [id number] Gerri Mann DEPARTMENT SECRETARY Comment on above: Take 1 tablet by elia th once daily. tiZANidine 4 mg oral tablet (5 sources) Central alpha-2 Adrenergic Agonist Start: 03-25-2024 End: 10-19-2024 take 1 tablet by mouth three times daily as needed for muscle spasms tiZANidine (ZANAFLEX) 4 MG tablet Take 1 (one) tablet (4 mg total) by mouth 3 (three) times a day as needed for muscle spasms . 90 tablet 03/25/2024 04/24/2024 Active Tramadol (12 sources) Opioid Agonist Start: 09-01-2023 take 2 tablets by mouth every eight hours as needed for pain Tramadol 25 mg tablet Active 50 mg PO Q8H as needed for pain September 01, 2023 1:00am Start: 09-01-2023 take 1 tablet by elia th twice daily as needed Tramadol 25 mg tablet Active 25 mg PO TWICE A DAY as needed September 01, 2023 1:00am Start: 09-01-2023 take 25 mg by mouth twice cecy y Tramadol Active 25 MG PO TWICE A DAY September 01, 2023 1:00am take 1 tablet by elia th every four hours as needed for pain traMADol (ULTRAM) 50 mg tablet Take 1 (one) tablet (50 mg total) by mouth every 4 (four) hours as needed for pain . 0 Active tropicamide 10 mg/ml ophthalmic solution (4 sources) Anticholinergic Start: 12-25-2023 End: 12-25-2023 tropicamide 1 % 1 Drop (MYDRIACYL) Start: 12-18-2022 End: 12-18-2022 tropicamide 1 % 1 Drop (MYDR IACYL) Start: 12-11-2021 End: 12-11-2021 tropicamide 1 % 1 Drop (MYDR IACYL) vitamin b12 1 mg oral tablet (20 sources) Vitamin B12 take 1 tablet by mouth once daily cyanocobalamin (B-12) 1000 MCG tablet Take 1 (one) tablet (1,000 mcg total) by mouth daily . Active Comment on above: Take 1,000 mcg by mo uth once daily. Completed/Discontinued Medications Medication Drug Class(es) Dates Sig (Normalized) Sig (Original) [id number] 200 actuat albuterol 0.09 mg/actuat metered dose inhaler (1 source) beta2-Adrenergic Agonist Start: 08-20-2021 take 2 puff(s) by inhalation twice daily as needed for cough albuterol 90 mcg/inh inhalation aerosol ; 2 puff(s) inhaled 2 times a day as needed for cough. PT STATES TAKES NEEDED. Quantity: 8.5 Refills: 0 Ordered: 20-Aug-2021 Tracie Eugene Start: 20-Aug-2021 Generic Substitution Allowed Comments: For inhalation only.It is very important that you take or use this exactly as directed. Do not skip doses or discontinue unless directed by your doctor.Obtain medical advice before taking any non-prescription drugs as some may affect the action of this medication.Shake well before use. Comment on above: For inhalation only. It is very important that you take or use this exactly as directed. Do not skip doses or discontinue unless directed by your doctor.Obtain medical advice before taking any non-prescription drugs as some may affect the action of this medication.Shake well before use. alendronic acid 70 mg oral tablet (7 sources) Bisphosphonate Start: 07-16-2024 End: 09-20-2024 take 1 tablet by mouth every week Alendronate 70 mg tablet Discontinued 70 mg PO EVERY WEEK July 16, 2024 1:00am September 20, 2024 1:27pm allopurinol 300 mg oral tablet (20 sources) Xanthine Oxidase Inhibitor Start: 06-04-2021 End: 10-13-2024 take 1 tablet by mouth once daily Allopurinol 300 mg tablet Discontinued 300 mg PO DAILY March 29, 2024 11:03am April 14, 2024 1:38pm Start: 03-07-2017 End: 07-26-2020 take 1 tablet by mouth once daily allopurinol (ZYLOPRIM) 300 MG tablet Take 300 mg by mouth daily . 0 03/07/2017 07/26/2020 Discontinued (Therapy completed) Comment on above: Take 300 mg by mouth once daily. azithromycin 250 mg oral tablet (5 sources) Macrolide Antimicrobial Start: 12-02-2024 End: 12-10-2024 Azithromycin 250 mg tablet Discontinued 0 PO .COMPLEX December 02, 2024 12:00am December 10, 2024 10:04am For 250 mg dose pack: take 500 mg today (day 1), then 250 mg for 4 days (days 2-5) PO C/sourcherry/celery/grap e seed (TART MOY ORAL) (14 sources) End: 03-09-2021 C/sourcherry/celery/gra pe seed (TART MOY ORAL) Take by mouth daily . 0 03/09/2021 Discontinued (Therapy completed) C/sourcherry/chilo grant/grape seed (TART MOY ORAL) Take by mouth daily . 0 Active C/sourcherry/chilo grant/grape seed (TART MOY ORAL) Take by mouth . 0 Active casirivimab 600 mg-imdevimab 600 mg (ADAM-COV) 1200 mg total in sodium chloride 0.9% (NS) 110 mL IVPB (1 source) Start: 05-28-2021 End: 05-28-2021 casirivimab 600 mg-imdevimab 600 mg (ADAM-COV) 1200 mg total in sodium chloride 0.9% (NS) 110 mL IVPB ceFAZolin 2000 mg injection (2 sources) Cephalosporin Antibacterial Start: 06-17-2024 End: 06-18-2024 take 2000 mg intravenously every eight hours 2,000 mg, IntraVENous, Administer over 30 Minutes, Every 8 hours, First dose on Jen 06/17/24 at 2000, For 2 doses, Recovery & On Unit, premix bag, Suspected Indication (Select all that apply): Surgical Prophylaxis cholecalciferol 9.52 unt/ml / glucose 357 mg/ml oral gel (2 sources) Vitamin D Start: 06-17-2024 End: 06-21-2024 dicyclomine hydrochloride 20 mg oral tablet (9 sources) Anticholinergic Start: 01-28-2024 End: 05-19-2024 take 1 tablet by mouth four times daily as needed for pain dicyclomine (BENTYL) 20 mg tablet Take 1 (one) tablet (20 mg total) by mouth 4 (four) times a day as needed (Abd pain) . 20 tablet 01/28/2024 05/19/2024 Discontinued (Patient's Request) empagliflozin 25 mg oral tablet (7 sources) Sodium-Glucose Cotransporter 2 Inhibitor Start: 05-13-2024 End: 09-27-2024 take 1 tablet by mouth once daily in the morning Empagliflozin (Jardiance) 25 mg tablet Discontinued 25 mg PO EVERY MORNING 90 May 13, 2024 1:00am September 27, 2024 1:17pm fidaxomicin 200 mg oral tablet (7 sources) Macrolide Antibacterial Start: 02-20-2024 End: 03-01-2024 take 1 tablet by mouth every twelve hours Fidaxomicin 200 mg tablet Discontinued 200 mg PO Q12H 20 February 20, 2024 12:00am February 29, 2024 12:00am March 01, 2024 12:04am furosemide 20 mg oral tablet (20 sources) Loop Diuretic Start: 12-11-2021 take 1 tablet by mouth four times weekly furosemide (LASIX) 20 mg tablet Take 20 mg by mouth four times a week. 0 12/11/2021 Active Start: 06-16-2020 End: 11-19-2021 take 1 tablet by mouth every other day furosemide (LASIX) 20 MG tablet Take 1 (one) tablet (20 mg total) by mouth every other day . 45 tablet 1 11/20/2021 Active Start: 03-29-2015 End: 10-13-2024 take 1 tablet by mouth once daily Furosemide 20 mg tablet Discontinued 20 mg PO daily 90 October 13, 2023 2:21pm October 13, 2024 2:33pm Comment on above: Take 20 mg by mouth four times a week. gemfibrozil 600 mg oral tablet (4 sources) Peroxisome Proliferator Receptor alpha Agonist Start: 5 End: take 1 tablet by mouth twice daily gemfibrozil (LOPID) 600 MG tablet Take 600 mg by mouth 2 (two) times a day . 05/30/2015 10/10/2017 Discontinued End: 04-21-2017 take 1 tablet by mouth once daily GEMFIBROZIL 600 MG TABS One tablet by mouth daily GEMFIBROZIL [id number] Gerri Mann NP glucagon (rdna) 1 mg injecti on (2 sources) Antihypoglycemic Agent Start: 06-17-2024 End: 06-21-2024 150 ml glucose 50 mg/ml inje ction (4 sources) Start: 06-17-2024 End: 06-21-2024 Start: 06-17-2024 End: 06-21-2024 GLUCOSE BLOOD (2 sources) Start: 03-06-2017 [employer] ULTRA BLUE STRP Test glucose levels 6 times daily ICD10 E11.9 GLUCOSE BLOOD [id number] Gerri Mann NP Start: 03-06-2017 [employer] ULTRA BLUE STRP Test glucose levels 6 times daily GLUCOSE BLOOD [id number] Shanae Sosa [employer]EL[employer] WE[employer] DESIGNER 1 ml HYDROmorphone hydrochloride 1 mg/ml cartridge (4 sources) Opioid Agonist Start: 06-17-2024 End: 06-17-2024 take 1 dose by mouth every hour 1 mg, IntraVENous, Once, On Jen 06/17/24 at 0335, For 1 dose, If oral and IV narcotics ordered, use oral first and only use IV if oral is ineffective or cannot take oral. Do Not give oral and IV within 1 hour of each other unless specifically ordered. Start: 06-16-2024 End: 06-16-2024 take 0.5 mg by mouth once 0.5 mg, IntraVENous, Once, O n 06/16/24 at 2335, For 1 dose, If oral and IV narcotics ordered, use oral first and only use IV if oral is ineffective or cannot take oral. Do Not give oral and IV within 1 hour of each other unless specifically ordered. icosapent ethyl 1000 mg oral capsule (20 sources) Start: 11-01-2021 End: 09-27-2024 Icosapent Ethyl (Vascepa) 1 gram capsule Discontinued 2 g PO TWICE A DAY November 05, 2021 5:02pm September 27, 2024 1:17pm 3 ml insulin degludec 200 unt/ml pen injector (20 sources) Insulin Analog Start: 11-26-2022 inject 70 [IU] by subcutaneous injection at bedtime TRESIBA FLEXTOUCH U-200 200 unit/mL (3 mL) injection 70 UNIT (0.35 ML) SUBCUTANEOUSLY AT BEDTIME 0 11/26/2022 Active Start: 10-10-2022 End: 02-20-2024 Insulin Degludec (Tresiba Fl extouch U-200) 200 unit/mL (3 mL) insulin pen Discontinued 70 U SC AT BEDTIME December 11, 2023 12:49pm February 20, 2024 10:56am insulin degludec (Tresiba FlexTouch U-200) 200 unit/mL (3 mL) InPn Inject 55 (fifty five) Units under the skin daily . Active Comment on above: 70 UNIT (0.35 ML) TINAJERO BCUTANEOUSLY AT BEDTIME 3 ml insulin detemir 100 unt/ml pen injector (20 sources) Insulin Analogue Start: 09-10-2018 End: 12-18-2020 Insulin Detemir U-100 (Levemir Flextouch U-100 Insuln) 100 unit/mL (3 mL) insulin pen Discontinued 120 U SC DAILY 36 September 10, 2018 5:56pm December 18, 2020 10:19am End: 10-10-2017 insulin detemir (LEVEMIR) 10 0 unit/mL injection Inject 100 Units under the skin nightly. 10/10/2017 Discontinued insulin glargine 100 unt/ml injectable solution (20 sources) Insulin Analogue Start: 06-17-2024 End: 06-21-2024 inject 46 [IU] by subcutaneous injection once daily 46 Units, SubCUTAneous, Nightly, First dose (after last modification) on Jen 06/17/24 at 2100 Start: 03-31-2018 End: 09-10-2018 Insulin Glargine (Basaglar K wikpen U-100 Insulin) 100 unit/mL (3 mL) insulin pen Discontinued 165 U SC daily March 31, 2018 10:10am September 10, 2018 12:23pm Start: 01-20-2018 End: 03-31-2018 Insulin Glargine (Basaglar K wikpen U-100 Insulin) 100 unit/mL (3 mL) insulin pen Discontinued 120 U SC daily 105 January 20, 2018 12:00am March 31, 2018 10:11am Start: 10-09-2017 End: 03-31-2018 Insulin Glargine (Lantus U-1 00 Insulin) 100 unit/mL solution Discontinued 60 U SC TWICE A DAY 40 October 09, 2017 9:56am March 31, 2018 10:11am Start: 07-15-2017 End: 10-09-2017 Insulin Glargine (Lantus U-1 00 Insulin) 100 unit/mL solution Discontinued 100 U SC AT BEDTIME July 15, 2017 1:00am October 09, 2017 9:55am Start: 05-19-2017 LANTUS 100 UNI T/ML SOLN inject 100 units at bed time INSULIN GLARGINE [id number] Gerri Mann NP Start: 01-21-2017 End: 04-23-2025 BASAGLAR KWIKPEN 100 UNIT/ML SOPN Take 100 units daily INSULIN GLARGINE [id number] Gerri Mann NP End: 01-06-2019 insulin glargine (LANTUS) 10 0 unit/mL injection Inject under the skin nightly. 0 01/06/2019 Discontinued (Discontinued by another clinician) End: 04-21-2017 LANTUS 100 UNIT/ML SOLN Take 100 units daily. INSULIN GLARGINE [id number] Gerri Mann NP 3 ml insulin lispro 100 unt/ml pen injector (11 sources) Insulin Analog Start: 01-20-2018 End: 09-10-2018 Insulin Lispro (Humalog Kwikpen (U-) 100 unit/mL insulin pen Discontinued 0 SC .COMPLEX 90 January 20, 2018 12:00am September 10, 2018 12:23pm 25 units with each meal and sliding scale up to 90 units daily SC Insulin Lispro (Humalog) injection 0-18 Units (2 sources) Start: 06-19-2024 End: 06-21-2024 Insulin Lispro (Humalog) injection 0-18 Units 3 ml insulin isophane, human 100 unt/ml pen injector (20 sources) Start: 04-11-2022 End: 10-10-2022 Insulin Nph Isoph U-100 Human (Novolin N Flexpen) 100 unit/mL (3 mL) insulin pen Discontinued 0 SC .COMPLEX April 11, 2022 11:26am October 10, 2022 10:54am 25 am and 60 pm subcutaneously; Start: 04-11-2022 End: 10-10-2022 Insulin Nph Isoph U-100 Indigo n (Novolin N Flexpen) 100 unit/mL (3 mL) insulin pen Discontinued 0 SC .COMPLEX April 11, 2022 11:26am October 10, 2022 10:54am 25 am and 60 pm subcutaneously; Start: 04-11-2022 End: 04-11-2022 Insulin Nph Isoph U-100 Indigo n (Novolin N Flexpen) 100 unit/mL (3 mL) insulin pen Discontinued 1 U SC April 11, 2022 12:00am April 11, 2022 11:28am Start: 01-21-2022 End: 10-10-2022 Insulin Nph Isoph U-100 Indigo n (Novolin N Nph U-100 Insulin) 100 unit/mL suspension Discontinued 0 .ROUTE .COMPLEX 16.5 January 21, 2022 9:48am October 10, 2022 10:55am 55 units QHS; Start: 12-18-2020 End: 01-21-2022 Insulin Nph Isoph U-100 Indigo n (Novolin N Nph U-100 Insulin) 100 unit/mL suspension Discontinued 0 SC EVERY MORNING December 18, 2020 12:00am January 21, 2022 9:50am 20 am, 60 hs subcut every morning; Start: 12-18-2020 End: 01-21-2022 Insulin Nph Isoph U-100 Indiog n (Novolin N Nph U-100 Insulin) 100 unit/mL suspension Discontinued 0 SC EVERY MORNING December 18, 2020 12:00am January 21, 2022 9:50am 20 am, 60 hs subcut every morning; Start: 01-03-2020 NovoLIN N NPH U-100 Insulin 100 unit/mL injection Use as directed twice daily, approx 85 units daily (Needs Reli-on brand) . 30 mL 12 01/03/2020 Active Start: 09-02-2019 End: 01-03-2020 NOVOLIN N NPH U-100 INSULIN 100 unit/mL injection USE DIRECTED TWICE DAILY. APPROXIMATELY 60 UNITS 0 11/26/2019 Active Start: 12-15-2018 End: 09-02-2019 NOVOLIN N NPH U-100 INSULIN 100 unit/mL injection Inject 35 units q HS (Needs Reli-on brand) . 20 mL 12 12/15/2018 09/02/2019 Discontinued (Reorder) NovoLIN N 100 un its/mL subcutaneous suspension Quantity: 0 Refills: 0 Ordered: 20-Aug-2021 Kelsey Rowan Generic Substitution Allowed Comment on above: USE DIRECTED TWIC E DAILY. APPROXIMATELY 60 UNITS insulin human, isophane 70 unt/ml / regular insulin, human 30 unt/ml injectable suspension (4 sources) Insulin Start: 9 End: 9 insulin NPH-insulin regular 70/30 (NovoLIN 70/30 U-100 Insulin) 100 unit/mL (70-30) injection three times daily. 80 units at breakfast 50 units at lunch 60 units at dinner 0 10/27/2018 03/21/2019 Discontinued loratadine 10 mg oral tablet (20 sources) Start: 4 End: 5 take 1 tablet by mouth once daily as needed Loratadine 10 mg tablet Discontinued 10 mg PO DAILY as needed for for allergies 90 April 09, 2024 11:31am September 20, 2024 2:08pm take 1 capsule by mouth once ruy ly loratadine (Claritin Liqui-Gel) 10 mg cap Take 1 (one) capsule (10 mg total) by mouth daily . Active magnesium oxide 400 mg oral tablet (20 sources) Start: 06-23-2018 End: 01-01-2024 take 1 tablet by mouth twice daily Magnesium Oxide (Magox) 400 mg (241.3 mg magnesium) tablet Discontinued 400 mg PO TWICE A DAY June 23, 2018 11:29am January 01, 2024 10:26am Start: 07-15-2017 End: 06-23-2018 take 1 tablet by mouth once daily Magnesium Oxide (Magox) 400 mg tablet Discontinued 400 mg PO daily July 15, 2017 1:00am June 23, 2018 11:29am take 800 mg by mouth every other day MAGNESIUM OXIDE ORAL Take 800 mg by mouth every other day . Active magnesium oxide 400 mg cap Take by mouth once daily. 0 Active take 800 mg by mouth every other day MAGNESIUM OXIDE ORAL Take 800 mg by mouth every other day . 0 Active take 1 tablet by elia th once daily MAGOX 400 400 (241.3 Mg) MG TABS One tablet by mouth daily MAGNESIUM OXIDE [id number] Gerri Mann NP Comment on above: Take by mouth once d aily. metFORMIN hydrochloride 500 mg oral tablet (20 sources) Biguanide Start: 1 End: 4 take 1 tablet by mouth twice daily Metformin 500 mg tablet Discontinued 500 mg PO TWICE A DAY 180 December 18, 2020 10:22am January 01, 2024 10:26am Start: 01-03-2020 End: 07-26-2020 take 1 tablet by mouth twice daily at mealtime metFORMIN (GLUCOPHAGE) 500 MG tablet Take 1 (one) tablet (500 mg total) by mouth 2 (two) times a day with meals . 180 tablet 3 01/03/2020 07/26/2020 Discontinued (Discontinued by another clinician) Start: 04-09-2015 End: 12-18-2020 take 1 tablet by mouth twice daily Metformin 1,000 mg tablet Discontinued 1000 mg PO TWICE A DAY 180 October 09, 2017 12:00am December 18, 2020 10:22am Comment on above: Take 1 tablet by elia twice daily with meals. 1 ml naloxone hydrochloride 0.4 mg/ml injection (2 sources) Opioid Antagonist Start: 06-17-2024 End: 06-21-2024 0.4 mg, IntraVENous, Every 5 min PRN, opioid reversal, respiratory depression, Starting on Jen 06/17/24 at 0334, +++ For RR 2 ml ondansetron 2 mg/ml injection (20 sources) Serotonin-3 Receptor Antagonist Start: 06-17-2024 End: 06-17-2024 4 mg, IntraVENous, Once, On Jen 06/17/24 at 0010, For 1 dose Start: 01-28-2024 End: 05-19-2024 take 1 tablet by mouth every six hours as needed for nausea ondansetron (ZOFRAN-ODT) 4 MG disintegrating tablet Dissolve 1 (one) tablet (4 mg total) on top of tongue every 6 (six) hours as needed for nausea . 10 tablet 01/28/2024 05/19/2024 Discontinued (Patient's Request) Start: 01-09-2024 End: 05-19-2024 take 4 mg by mouth every eight hours as needed ondansetron (ZOFRAN) 8 MG tablet Take 0.5 (one-half) tablet (4 mg total) by mouth every 8 (eight) hours as needed . 11 tablet 01/09/2024 05/19/2024 Discontinued (Patient's Request) ondansetron ODT (Zofran-ODT) disintegrating tablet 4 mg (2 sources) Start: 06-17-2024 End: 06-21-2024 take 1 tablet by mouth every eight hours as needed for nausea and vomiting ondansetron ODT (Zofran-ODT) disintegrating tablet 4 mg perflutren lipid microspheres (DEFINappening) 0.143 mg/mL solution 0-10 mL of mixture (1 source) Start: 12-18-2018 End: 12-18-2018 perflutren lipid microspheres (DEFINITY) 0.143 mg/mL solution 0-10 mL of mixture predniSONE 10 mg oral tablet (4 sources) Start: 12-10-2024 End: 12-16-2024 take 1 tablet by mouth three times daily Prednisone 10 mg tablet Discontinued 10 mg PO THREE TIMES A DAY December 10, 2024 12:00am December 16, 2024 12:27pm Start: 08-20-2021 End: 08-26-2021 take 4 tablets by mouth once daily at mealtime, then take 1 tablet by mouth once daily, then take 1 tablet by mouth once daily, then take 1 tablet by mouth once daily predniSONE 10 mg oral tablet ; 4 tab(s) orally once a day x 2 days3 tab(s) orally once a day x 2 days2 tab(s) orally once a day x 2 days1 tab(s) orally once a day x 1 days Quantity: 19 Refills: 0 Ordered: 20-Aug-2021 Tracie Eugene Start: 20-Aug-2021 End: 26-Aug-2021 Generic Substitution Allowed Comments: It is very important that you take or use this exactly as directed. Do not skip doses or discontinue unless directed by your doctor.Obtain medical advice before taking any non-prescription drugs as some may affect the action of this medication.Take with food or milk. Comment on above: It is very important that you take or use this exactly as directed. Do not skip doses or discontinue unless directed by your doctor.Obtain medical advice before taking any non-prescription drugs as some may affect the action of this medication.Take with food or milk. insulin, regular, human 100 unt/ml injectable solution (20 sources) Insulin Start: 06-17-20 End: 06-21-20 inject 30 [IU] by subcutaneous injection three times daily at mealtime 30 Units, SubCUTAneous, 3 times daily with meals, First dose (after last reorder) on Fri06/17/24 at 1845, Recovery (only) Start: 06-17-2024 inject 4 [IU] by sub cutaneous injection once 4 Units, SubCUTAneous, Once, On Fri06/17/24 at 1445, For 1 dose, Recovery (only) Start: 06-17-2024 End: 06-19-2024 0-18 Units, SubCUTAneous, Ev grant 6 hours, First dose on Jen 06/17/24 at 0530, NPO High Dose Correction Algorithm Glucose: Dose: If LESS than 150 No Insulin 150-199 3 Units 200-249 6 Units 250-299 9 Units 300-349 12 Units 350-400 15 Units Above 400 18 Units Start: 04-11-2022 End: 10-10-2022 Insulin Regular Human (Novol in R Flexpen) 100 unit/mL (3 mL) insulin pen Discontinued 28 U SC THREE TIMES A DAY April 11, 2022 11:21am October 10, 2022 10:55am plus sliding scale Start: 01-21-2022 End: 10-10-2022 Insulin Regular Human (Novol in R Regular U-100 Insuln) 100 unit/mL solution Discontinued 30 U SC THREE TIMES A DAY January 21, 2022 9:47am October 10, 2022 10:55am Start: 12-18-2020 End: 01-21-2022 Insulin Regular Human (Novol in R Regular U-100 Insuln) 100 unit/mL solution Discontinued 27 U SC THREE TIMES A DAY December 18, 2020 12:00am January 21, 2022 9:50am Start: 12-15-2018 End: 12-27-2019 NovoLIN R Regular U-100 Insu ln 100 unit/mL injection USE DIRECTED THREE TIMES DAILY INJECTING UP TO 80 UNITS PER DAY . 30 mL 6 12/27/2019 Active Start: 07-15-2017 End: 03-31-2018 Insulin Regular Human (Novol in R Regular U100 Insulin) 100 unit/mL solution Discontinued 0 SC THREE TIMES A DAY October 09, 2017 9:57am March 31, 2018 10:11am Take 25 units each meal and sliding scale up to 100 units daily Start: 10-15-2016 End: 01-14-2025 Insulin Regular Human (Novol in R Flexpen) 100 unit/mL (3 mL) insulin pen Discontinued 1 sliding scale dose SC April 11, 2022 12:00am April 11, 2022 11:28am Start: 06-04-2015 End: 01-14-2025 NOVOLIN R 100 UNIT/ML CHARITO manne 25 units at each meal INSULIN REGULAR HUMAN [id number] Gerri Mann NP Start: 06-04-2015 NOVOLIN R 100 unit/mL injection Indications: 25 units before meals Blnsiot53 units before meals. 06/04/2015 Active NovoLIN R 100 un its/mL injectable solution Quantity: 0 Refills: 0 Ordered: 20-Aug-2021 Kelsey Rowan Generic Substitution Allowed End: 04-21-2017 NOVOLIN R 100 UNIT/ML SOLN U se 25 units with each meal. three times a day INSULIN REGULAR HUMAN [id number] Gerri Mann NP Comment on above: USE DIRECTED THRE E TIMES DAILY INJECTING UP TO 80 UNITS PER DAY saccharomyces boulardii 250 mg oral capsule (7 sources) Start: 04-14-20 End: 09-21-19 take 1 capsule by mouth twice daily Saccharomyces Boulardii (Florastor) 250 mg capsule Discontinued 250 mg PO TWICE A DAY April 14, 2024 12:00am September 20, 2024 1:29pm 1000 ml sodium chloride 9 mg/ml injection (1 source) Start: 05-28-20 End: 05-28-20 sodium chloride 0.9% (NS) sour moy allergenic extract (11 sources) Non-Standardized Food Allergenic Extract, Non-Standardized Plant Allergenic Extract Start: 07-24-19 End: 01-01-20 Sour Moy Extract (Tart Moy Extract) 1,000 mg capsule Discontinued mg PO July 24, 2020 1:00am January 01, 2024 10:27am Start: 07-24-2020 Sour Moy Ex tract (Tart Moy Extract) 1,000 mg capsule Active MG PO July 24, 2020 1:00am traZODone hydrochloride 50 mg oral tablet (20 sources) Serotonin Reuptake Inhibitor Start: 07-15-2017 End: 10-13-2024 take 1 tablet by mouth at bedtime as needed Trazodone 50 mg tablet Discontinued 50 mg PO AT BEDTIME as needed for insomnia March 29, 2024 11:03am April 14, 2024 1:38pm take 1 tablet by mouth twice ruy ly traZODone 50 mg oral tablet ; 1 tab(s) orally 2 times a day Quantity: 0 Refills: 0 Ordered: 20-Aug-2021 Kelsey Rowan Generic Substitution Allowed Comment on above: Take 50 mg by mouth daily at bedtime. vancomycin 125 mg oral capsule (14 sources) Glycopeptide Antibacterial Start: End: take 1 capsule by mouth four times daily Vancomycin 125 mg capsule Discontinued 125 mg PO 4 TIMES DAILY April 14, 2024 12:00am July 15, 2024 2:53pm Start: 01-12-2024 End: 02-20-2024 take 1 capsule by mouth four times daily Vancomycin (Vancocin) 250 mg capsule Discontinued 250 mg PO .QID January 12, 2024 12:00am February 20, 2024 10:56am four times daily x 10 days for stomach bug from well Problems Active Problems Problem Classification Problem Date Documented Date Episodic/Chronic Abdominal pain (6 sources) Unspecified abdominal pain; Translations: [Abdominal pain, unspecified site] 09-01-2023 Episodic Administrative/social admission (3 sources) Persons encountering health services in other specified circumstances; Translations: [Other reasons for seeking consultation] 09-01-2023 Episodic Anxiety disorders (20 sources) Anxiety disorder, unspecified; Translations: [Anxiety state, unspecified] 09-01-2023 Chronic Asthma (1 source) Unspecified asthma, uncomplicated; Translations: [Unspecified asthma, uncomplicated] Onset: 12-26-2021 Chronic Chronic kidney disease (20 sources) Chronic kidney disease stage 3; Translations: [Stage 3 chronic kidney disease] Onset: 03-14-2023 01-23-2023 Chronic Chronic kidney disease (1 source) Chronic kidney disease; Translations: [Chronic kidney disease, stage 3a] Onset: 10-13-2024 Coronary atherosclerosis and other heart disease (20 sources) Coronary arteriosclerosis; Translations: [Coronary arteriosclerosis in [place] artery] Onset: 12-20-2015 12-20-2015 Chronic Diabetes mellitus with complications (20 sources) Type II diabetes mellitus uncontrolled; Translations: [Type 2 diabetes mellitus with hyperglycemia] Onset: 02-07-2011 Resolved: 12-01-2019 03-18-2019 Chronic Diabetes mellitus without complication (20 sources) Diabetes mellitus; Translations: [Type 1 diabetes mellitus] Onset: 02-07-2011 Resolved: 08-11-2018 06-20-2016 Chronic Disorders of lipid metabolism (20 sources) Hypercholesterolemia; Translations: [Hyperchylomicronemia] Onset: 02-07-2011 Resolved: 12-01-2019 06-21-2015 Chronic E Codes: Fall (7 sources) Fall; Translations: [Unspecified fall, initial encounter] 06-24-2024 Episodic Essential hypertension (20 sources) Hypertensive disorder; Translations: [Essential hypertension] Onset: 12-20-2015 Resolved: 12-01-2019 12-20-2015 Chronic Fracture of lower limb (20 sources) Closed fracture of distal end of right femur; Translations: [Unspecified fracture of lower end of right femur, initial encounter for closed fracture] Onset: 06-17-2024 06-17-2024 Episodic Gout and other crystal arthropathies (7 sources) Gout; Translations: [Gout, unspecified] Onset: 10-25-2016 10-25-2016 Chronic Miscellaneous mental health disorders (7 sources) Chronic insomnia; Translations: [Psychophysiologic insomnia] 10-13-2024 Chronic Nonspecific chest pain (4 sources) Chest pain; Translations: [Chest pain, unspecified] Onset: 12-26-2021 05-20-2024 Episodic Osteoarthritis (20 sources) Osteoarthritis of joint of right shoulder region; Translations: [Secondary osteoarthritis, right shoulder] Onset: 10-25-2024 09-27-2024 Chronic Osteoporosis (20 sources) Osteoporosis; Translations: [Age-related osteoporosis without current pathological fracture] Onset: 06-16-2024 06-21-2024 Chronic Other aftercare (3 sources) residential (current) use of insulin; Translations: [residential (current) use of insulin] Onset: 06-20-2016 Episodic Other aftercare (7 sources) Long-term current use of insulin; 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] 12-18-2020 Episodic Other bone disease and musculoskeletal deformities (1 source) Other specified disorders of bone density and structure, multiple sites; Translations: [Oth disrd of bone density and structure, multiple sites] Onset: 09-18-2022 Episodic Other bone disease and musculoskeletal deformities (7 sources) Osteopenia; Translations: [Other specified disorders of bone density and structure, unspecified site] 05-13-2024 Episodic Other connective tissue disease (3 sources) Other specified soft tissue disorders; Translations: [Swelling of limb] 10-13-2023 Episodic Other connective tissue disease (1 source) Pain in right arm; Translations: [Pain in right arm] 09-16-2024 Episodic Other connective tissue disease (2 sources) Pain in right arm; Translations: [Pain in right arm] Onset: 09-16-2024 Episodic Other eye disorders (4 sources) Bilateral vitreous floaters; Translations: [Other vitreous opacities, bilateral] Onset: 05-31-2015 05-31-2015 Chronic Other eye disorders (7 sources) Tear film insufficiency; Translations: [Dry eye syndrome of bilateral lacrimal glands] Onset: 12-02-2018 Episodic Other fractures (2 sources) Wedge compression fracture of T11-T12 vertebra, initial encounter for closed fracture; Translations: [Wedge compression fracture of T11-T12 vertebra, initial encounter for closed fracture] Onset: 03-24-2024 Episodic Other injuries and conditions due to external causes (2 sources) Unspecified injury of head, initial encounter; Translations: [Unspecified injury of head, initial encounter] Onset: 03-24-2024 Episodic Other lower respiratory disease (5 sources) Dyspnea on exertion; Translations: [Shortness of breath] Episodic Other nervous system disorders (1 source) Neuritis of right ulnar nerve; Translations: [Lesion of ulnar nerve, right upper limb] 09-16-2024 Chronic Other nervous system disorders (1 source) Other chronic pain; Translations: [Other chronic pain] Onset: 09-20-2024 Chronic Other nervous system disorders (9 sources) Paresthesia of hand ; Translations: [Anesthesia of skin] 07-15-2024 Episodic Other nervous system disorders (1 source) Anesthesia of skin; Translations: [Anesthesia of skin] Onset: 10-28-2024 Episodic Other non-traumatic joint disorders (20 sources) Pain in right shoulder; Translations: [Right shoulder pain] Onset: 03-24-2024 Episodic Other non-traumatic joint disorders (2 sources) Pain in right wrist; Translations: [Pain in right wrist] Onset: 03-24-2024 Episodic Other non-traumatic joint disorders (14 sources) Chronic pain of right upper limb; Translations: [Pain in right shoulder] 09-20-2024 Episodic Other nutritional; endocrine; and metabolic disorders (1 source) Overweight; Translations: [Overweight] Onset: 10-15-2016 10-15-2016 Chronic Other nutritional; endocrine; and metabolic disorders (16 sources) Obesity; Translations: [Obesity, unspecified] 12-18-2020 Chronic Other nutritional; endocrine; and metabolic disorders (3 sources) Obesity, unspecified; Translations: [Obesity, unspecified] 07-17-2023 Chronic Other nutritional; endocrine; and metabolic disorders (1 source) Morbid (severe) obesity due to excess calories; Translations: [Morbid (severe) obesity due to excess calories] Onset: 05-13-2024 Chronic Other nutritional; endocrine; and metabolic disorders (1 source) Body mass index (BMI) 38.0-38.9, adult; Translations: [Body mass index [BMI] 38.0-38.9, adult] Onset: 05-13-2024 Chronic Other upper respiratory infections (8 sources) Acute upper respiratory infection; Translations: [Acute upper respiratory infections of unspecified site] Onset: 12-06-2024 08-20-2021 Episodic Residual codes; unclassified (4 sources) Asymptomatic menopausal state; Translations: [Asymptomatic menopausal state] Onset: 09-18-2022 Episodic Residual codes; unclassified (2 sources) Pain; Translations: [Pain, unspecified] 05-06-2024 Episodic Residual codes; unclassified (2 sources) Pain, unspecified; Translations: [Pain, unspecified] Onset: 04-06-2024 Episodic Residual codes; unclassified (1 source) Other general symptoms and signs; Translations: [Other general symptoms and signs] Onset: 12-07-2024 Episodic Substance-related disorders (1 source) Opioid dependence, uncomplicated; Translations: [Opioid dependence, uncomplicated] Onset: 12-13-2024 Chronic Syncope (1 source) Near syncope; Translations: [Syncope and collapse] Episodic Thyroid disorders (20 sources) Hypothyroidism; Translations: [Hypothyroidism, unspecified] Onset: 01-10-2012 06-21-2015 Chronic Unclassified (1 source) Body mass index (BMI) 35.0-35.9, adult; Translations: [Body mass index (BMI) 35.0-35.9, adult] Onset: 10-15-2016 10-15-2016 Chronic Unclassified (1 source) Medication therapy changed; Translations: [Medication therapy changed] Unclassified (2 sources) COUGH SORE THROAT SINUS 08-20-2021 Comment on above: COUGH SORE THROAT SI NUS Unclassified (1 source) Acute URI 08-20-2021 Unclassified (7 sources) M25.511 - Pain in right shoulder,G89.29 - Other chronic pain,R20.0 - Anesthesia of skin,R20.2 - Paresthesia of skin Past or Other Problems Problem Classification Problem Date Documented Da te Episodic/Chronic Abdominal hernia (20 sources) Diaphragmatic hernia; Translations: [Diaphragmatic hernia without obstruction or gangrene] Onset: 2 Resolved: 8 10-10-2017 Episodic Allergic reactions (2 sources) Allergic contact dermatitis due to plants, except food; Translations: [Allergic contact dermatitis due to plants, except food] Onset: 4 Episodic Bacterial infection; unspecified site (8 sources) Recurrent Clostridium difficile infection; Translations: [Other bacterial infections of unspecified site] Onset: 4 02-20-2024 Episodic Blindness and vision defects (20 sources) Amblyopia; Translations: [Unspecified amblyopia, unspecified eye] Onset: 5 Resolved: 8 10-10-2017 Episodic Cataract (20 sources) Age-related cataract; Translations: [Combined form of senile cataract] Onset: 4 Resolved: 8 10-10-2017 Chronic Diverticulosis and diverticulitis (20 sources) Diverticulosis of large intestine without perforation or abscess without bleeding; Translations: [Diverticular disease of colon] Onset: 2 Resolved: 8 10-10-2017 Chronic Diverticulosis and diverticulitis (14 sources) Diverticulosis of large intestine; Translations: [Diverticulosis of large intestine] Onset: 2 Resolved: 8 10-10-2017 Esophageal disorders (20 sources) Gastroesophageal reflux disease; Translations: [Gastro-esophageal reflux disease without esophagitis] Onset: 2 Resolved: 9 06-21-2015 Chronic Fracture of upper limb (20 sources) Closed fracture of head of humerus; Translations: [Other displaced fracture of upper end of right humerus, initial encounter for closed fracture] Onset: 4 03-24-2024 Episodic Gastritis and duodenitis (20 sources) Acute gastritis; Translations: [Acute gastritis without bleeding] Onset: 2 Resolved: 8 10-10-2017 Episodic Gastrointestinal hemorrhage (8 sources) Hematochezia; Translations: [Melena] Onset: 4 03-11-2024 Episodic Immunizations and screening for infectious disease (1 source) Encounter for immunization; Translations: [Encounter for immunization] Onset: 4 Episodic Inflammation, infection of eye (20 sources) Blepharitis; Translations: [Unspecified inflammation of eyelid] Onset: 4 Resolved: 8 10-10-2017 Episodic Intestinal infection (6 sources) Clostridium difficile colitis; Translations: [Enterocolitis due to Clostridium difficile, not specified as recurrent] Onset: 4 07-15-2024 Episodic Mood disorders (2 sources) Mood disorders Onset: 4 03-24-2024 Other bone disease and musculoskeletal deformities (1 source) Other specified disorders of bone density and structure, unspecified site; Translations: [Other specified disorders of bone density and structure, unspecified site] Onset: 5 Episodic Other connective tissue disease (20 sources) History of total knee arthroplasty; Translations: [Presence of left artificial knee joint] Onset: 5 Resolved: 8 10-10-2017 Chronic Other eye disorders (20 sources) Vitreous floaters; Translations: [Other vitreous opacities, unspecified eye] Onset: 4 Resolved: 8 10-10-2017 Chronic Other eye disorders (1 source) Vitreous opacities; Translations: [Other vitreous opacities, unspecified eye] Onset: 4 Resolved: 6 06-12-2016 Chronic Other eye disorders (3 sources) Disorder of eyelid; Translations: [Inflammation of eyelid] Onset: 4 Resolved: 8 10-10-2017 Episodic Other eye disorders (1 source) H/O: L cataract extraction; Translations: [Cataract extraction status, left eye] Onset: 8 Resolved: 1 12-08-2020 Episodic Other eye disorders (1 source) H/O: R cataract extraction; Translations: [Cataract extraction status, right eye] Onset: 8 Resolved: 1 12-08-2020 Episodic Other female genital disorders (3 sources) Disorder of female perineum; Translations: [Cyst of perineum of female] Episodic Other gastrointestinal disorders (1 source) Diarrhea, unspecified; Translations: [Diarrhea, unspecified] Onset: 4 Episodic Other lower respiratory disease (3 sources) Dyspnea, unspecified; Translations: [Dyspnea, unspecified] Onset: 2 Episodic Other nervous system disorders (1 source) Paresthesia of skin; Translations: [Paresthesia of skin] Onset: 5 Episodic Other non-epithelial cancer of skin (1 source) Malignant neoplasm of skin; Translations: [Unspecified malignant neoplasm of skin, unspecified] Onset: 7 10-25-2016 Episodic Other non-traumatic joint disorders (20 sources) Hip pain; Translations: [Pain in left hip] Onset: 7 Resolved: 8 10-10-2017 Episodic Other non-traumatic joint disorders (1 source) Pain in right knee; Translations: [Pain in right knee] Onset: 5 Episodic Other screening for suspected conditions (not mental disorders or infectious disease) (20 sources) Patient encounter status; Translations: [Encounter for screening for malignant neoplasm of colon] Onset: 2 Resolved: 8 10-10-2017 Episodic Residual codes; unclassified (2 sources) Encounter for procedure for purposes other than remedying health state, unspecified; Translations: [Encounter for procedure for purposes other than remedying health state, unspecified] Onset: 4 Episodic Spondylosis; intervertebral disc disorders; other back problems (20 sources) Chronic low back pain; Translations: [Lumbago with sciatica, left side] Onset: 7 Resolved: 8 10-10-2017 Episodic Unclassified (20 sources) Family history of malignant neoplasm of gastrointestinal tract; Translations: [Family history of malignant neoplasm of digestive organs] Onset: 2 Resolved: 8 10-10-2017 Episodic Unclassified (5 sources) Screening status; Translations: [Special screening for malignant neoplasms, colon] Onset: 2 Resolved: 8 10-10-2017 Unclassified (14 sources) Patient encounter status; Translations: [Special screening for malignant neoplasms, colon] Onset: 2 Resolved: 8 10-10-2017 Viral infection (20 sources) Disease caused by 2019-nCoV; Translations: [COVID-19] Onset: 1 Episodic Results Test Name Value Interpretation Reference Range Facility ECG 12 LeadOrdered By: Lelia Childs on 12-24-2024 [facility] Work Phone: [email or web address] 12-22-2024 MR[facility] Medical Records Department [address] [place] [address] PAT - Anesthesia 12/22/24 1127 MR#: [id number] Acct: [id number] Name: CAROLYN CINTRON Rep #: [id number] : 1945 79 From: Luis Velázquez MD PCP: Dr. 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 When Was Last Pacemaker Check QUESTION #4 FULL TEXT: You/Your Family Experience fever (hyperthermia) with Anesthesia Last Oral Intake Last Oral intake: Last Oral Intake NPO since Meds taken in AM with sips of water? Meds patient instructed to take am of surgery PONV PONV - fraud analyst: PONV - fraud analyst Female Yes 12/01/24 11:39 HX of Motion Sickness No 12/01/24 11:39 HX of N/V After Surgery No 12/01/24 11:39 Non-Smoker Yes 12/01/24 11:39 Duration of Surgery greater Yes 12/01/24 11:39 than 60 minutes Number of Risk Factors 3 12/01/24 11:39 PONV Score Moderate Risk 12/01/24 11:39 Height Weight Height Weight: Anesthesia: Height Weight Height 5 ft 3 in 12/02/24 14:33 Respiratory Assessment Respiratory Assessment - fraud analyst: Respiratory Tract Infection Hx - fraud analyst Hx Respiratory Tract Infection Yes: NO FEVER, SCRATCHY 12/02/24 14:33 THROAT, STOP Sleep Apnea STOP Sleep Apnea - fraud analyst: STOP Sleep Apnea - fraud analyst Hx 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 Yes: CONTROLLED ON MED 12/02/24 14:33 Hx Sleep Apnea Yes: Tested pos/no assist. 12/02/24 14:33 CPAP No 12/02/24 14:33 BIPAP No 12/02/24 14:33 Do you snore loudly (louder than talking or can be heard Do you often feel tired/ fatigued/ sleepy during daytime? Has anyone observed you stop breathing during sleep? STOP Results Positive 12/01/24 11:39 QUESTION #5 FULL TEXT : Do you snore loudly (louder than talking or can be heard through closed doors)? 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 Specify any problems Hx of Preganancy in last 3 No 12/01/24 11:39 Months Nurse Filling Out Transfusion VCHRISTIN 12/01/24 11:39 Questions: Date: 12/01/24 12/01/24 11:39 Time: 11:42 12/01/24 11:39 Patient unable to answer at this time (ie. 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 Hx Now No 12/01/24 11:39 Gestational Age (in weeks): EDC: Hx Hx Para Hx Section SAB No 12/02/24 14:33 [facility] Medical History Wears partial dentures Wears glasses Post-menopausal History of Clostridium difficile infection MRSA infection Cancer History of steroid therapy Insulin dependent diabetes mellitus Diabetes Arthritis DVT (deep venous thrombosis) Back pain History of hiatal hernia History of IBS Gastric reflux Non-smoker History of pain when walking History of echocardiogram History of stress test 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 Cardiology follow-up encounter Hx of fracture of lower leg Secondary osteoarthritis, right shoulder Right shoulder pain Osteopenia determined by x-ray Bilateral pseudophakia Amblyopia of left eye Dry eye syndrome of bilateral lacrimal glands Acute allergic conjunctivitis of both eyes Hypertriglyceridemia Encounter for long-term (current) insulin use Shingles Thyroid disease Sk (more content not included)... Normal [facility] Internal Medicine Office Vis ito 12-16-2024 Internal Medicine Office Visit [facility] [address] [place] [address] [place] [address] OFFICE VISIT Date of Service: 12/16/24 MR#: [id number] Acct: [id number] Name: CAROLYN CINTRON Rep #: [id number] : 1945 Provider: GERRI Fraser Age/Sex: 79/F Location: [facility] [place] Status: Signed Intake Vital Signs 12/02/24 14:33 12/16/24 12:30 Height 5 ft 3 in 5 ft 3 in Weight: 191 lb 191 lb BMI 33.8 33.8 BP 128/58 H 112/60 Blood Pressure Location Rt brachial Rt brachial Position Sitting Sitting Respiration 19 H 14 Pulse 76 76 Pulse Source Monitor Monitor Temp 97.9 F 97.4 F L Temp Source Temporal Temporal Pulse Oximetry (%) 96 95 Oxygen Delivery Method room air room air Intake Visit Reasons: 1 WK Chief Complaint: 1 WK 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 Is patient in pain?: No Allergies Sulfa (Sulfonamide Antibiotics) Adverse Reaction (Severe, Verified 12/16/24 12:19) Upset Stomach Penicillins Adverse Reaction (Intermediate, Verified 12/16/24 12:19) Diarrhea cephalexin (From Keflex) Adverse Reaction (Verified 12/16/24 12:19) Nausea/Vom/Diarrhea Medications ???Medication ???Instructions ???Recorded ???Confirmed ???Type insulin syringe-needle U-100 0.3 #350 ea 07/17/17 12/16/24 Rx mL 31 gauge x 5/16 (BD Insulin Syringe Ultra-Fine) pen needle, diabetic 32 gauge x #350 ea 02/19/18 12/16/24 Rx 5/32 (BD Ultra-Fine Christy Pen Needle) cholecalciferol (vitamin D3) 25 2,000 unit PO DAILY 06/23/1812/16 History mcg (1,000 unit) capsule aspirin 81 mg tablet,delayed 81 mg PO DAILY 07/24/20 12/16/24 H istory release mecobalamin (vitamin B12) 1,000 1,000 mcg PO DAILY 07/24/20 History mcg chewable tablet blood sugar diagnostic #100 ea 12/18/20 12/16/24 Rx polyethylene glycol 3350 17 4 g PO DAILY PRN constipation /12/16/24 History gram/dose oral powder (Miralax) tramadol 25 mg tablet 50 mg PO Q8H PRN pain 09/01/2306/30 History flash glucose sensor (FreeStyle #2 ea 10/02/23 12/16/24 Rx Nomi 2 Sensor kit) Novolog FlexPen U-100 Insulin 100 40 unit (0.4 mL) subcut TID #48 m L 01/01/24 12/16/24 Rx unit/mL (3 mL) subcutaneous (insulin aspart U-100) fluticasone propionate 50 1 spray intranasal DAILY PRN 12/3112/16/24 History mcg/actuation nasal allergy symptoms spray,suspension lisinopril 10 mg tablet 10 mg PO DAILY #90 tabs 01/23/24 0 12/16/24 Rx blood sugar diagnostic (OneTouch #100 ea 04/09/24 12/16/24 Rx Ultra Test strips) blood-glucose sensor (FreeStyle #6 ea 05/13/24 12/16/24 Rx Nomi 3 Plus Sensor device) blood-glucose,odd bundle worker, cont #1 ea 05/13/24 12/16/24 Rx (FreeStyle Nomi 3 [place]) pen needle, diabetic 32 gauge x #150 ea 06/14/24 12/16/24 Rx 5/32 (BD Ultra-Fine Christy Pen Needle) loratadine 10 mg tablet 10 mg PO DAILY PRN for allergies 0 09/20/24 12/16/24 Rx #90 TABLETS allopurinol 300 mg tablet 300 mg PO DAILY #90 tabs 10/13/24 12/16/24 Rx furosemide 20 mg tablet 20 mg PO QDAY #90 tabs 10/13/24 Rx levothyroxine 112 mcg tablet 112 mcg PO DAILY #90 tabs 10/13/24 12/16/24 Rx montelukast 10 mg tablet 10 mg PO DAILY #90 tabs 10/13/24 0 12/16/24 Rx rosuvastatin 20 mg tablet 20 mg PO QDAY #90 tabs 10/13/24 Rx trazodone 50 mg tablet 50 mg PO QHS PRN insomnia #90 tabs 10/13/24 12/16/24 Rx fenofibrate micronized 134 mg 134 mg PO DAILY #90 caps 11/02/24 12/16/24 Rx capsule insulin degludec 200 unit/mL (3 50 unit subcut QHS 12/01/24 History mL) subcutaneous pen (Tresiba FlexTouch U-200 insulin) metoprolol succinate 50 mg 25 mg PO DAILY 12/01/24 12/16/24 H istory tablet,extended release 24 hr pantoprazole 40 mg tablet,delayed 40 mg PO Q OTHER DAY PRN heartbur n 12/01/24 12/16/24 History release fluticasone propionate 50 2 spray intranasal QDAY #16 grams 12/02/24 12/16/24 Rx mcg/actuation nasal spray,suspension (Flonase Allergy Relief) omega-3 fatty acids 1,000 mg 1,000 mg PO QDAY 12/02/24 12/16/24 History capsule potassium chloride 20 mEq 20 meq PO QDAY #90 tabs 12/02/24 0 12/16/24 Rx tablet,extended release(part/cryst) (Klor-Con M) Have you fallen in the past year?: No Nurse's Note: Pt finished prednisone course on Friday. Pt states as each day goes on she improves more and more. She still has some residual jitteriness and the lump in her throat is still there. She feels she will be better by Friday. Pt states since she started the prednisone she has had issues w/ constipation and uncertain if she should take laxative or not. Pt's last Bm was yesterday morning and it was loose. [facility] Medical History Wears partial dentures Wears glasses Post-menopausal History of Clostridium (more content not included)... Normal [facility] [id number] 12-15-2024 [facility] Misc. COMMENT Normal . [facility] Comment on above: Order Comment: [id number] Result Comment: Test Ordered: [id number] Compliance Drug Analysis, Ur Summary Report (Summary) FINAL MX Reference Range: . ===== TOXASSURE COMP DRUG ANALYSIS,UR ===== Test Result Flag Units Drug Present Tramadol 6040 ng/mg creat O-Desmethyltramadol 17547 ng/mg creat N-Desmethyltramadol 577 ng/mg creat Source of tramadol is a prescription medication. O-desmethyltramadol and N-desmethyltramadol are expected metabolites of tramadol. Trazodone PRESENT Acetaminophen PRESENT Doxylamine PRESENT Dextrorphan/Levorphanol PRESENT Dextrorphan is an expected metabolite of dextromethorphan, an xsvu-wct-llkgmtc or prescription cough suppressant. Levorphanol is a scheduled prescription medication. Dextrorphan cannot be distinguished from levorphanol by the method used for analysis. Guaifenesin PRESENT Guaifenesin may be administered as an onxc-heb-fcrlnjq or prescription drug; it may also be present as a breakdown product of methocarbamol. ===== Test Result Flag Units Ref Range Creatinine 30 mg/dL >=20 ===== Declared Medications: Medication list was not provided. ===== For clinical consultation, please call . ===== Performed at: [facility] [address] [place] [id number] Legal Contracts Specialist: Kavita Daly [facility], Phone: [phone] Performed at: - [facility] [id number] Legal Contracts Specialist: Joel Hart PhD, Phone: [phone] Performed By: #### L 505.5000, L3410.9992 ####[place] [facility] [address] [place], [address] Internal Medicine Office Vis iton 12-10-2024 Internal Medicine Office Visit [facility] [address] [place] [address] [address] [place] [place] [address] OFFICE VISIT Date of Service: 12/10/24 MR#: [id number] Acct: [id number] Name: CAROLYN CINTRON Rep #: [id number] : 1945 Provider: GERRI Fraser Age/Sex: 79/F Location: [facility] [place].[facility] Status: Signed Intake Vital Signs 12/02/24 13:07 12/02/24 14:33 Height 5 ft 3 in 5 ft 3 in Weight: 193 lb 191 lb BMI 34.2 33.8 BP 132/80 H 128/58 H Blood Pressure Location Lt brachial Rt brachial Position Sitting Sitting Respiration 20 H 19 H Pulse 76 76 Pulse Source Monitor Monitor Temp 98.6 F 97.9 F Temp Source Temporal Temporal Pulse Oximetry (%) 96 96 Oxygen Delivery Method room air room air Intake Visit Reasons: 1 W FU Chief Complaint: 1 WK FU Is patient in pain?: Yes (ACHE/PAIN ALL OVER) Pain scale (1-10): 5 Allergies Sulfa (Sulfonamide Antibiotics) Adverse Reaction (Severe, Verified 12/10/24 10:02) Upset Stomach Penicillins Adverse Reaction (Intermediate, Verified 12/10/24 10:02) Diarrhea cephalexin (From Keflex) Adverse Reaction (Verified 12/10/24 10:02) Nausea/Vom/Diarrhea Medications ???Medication ???Instructions ???Recorded ???Confirmed ???Type insulin syringe-needle U-100 0.3 #350 ea 07/17/17 12/10/24 Rx mL 31 gauge x 5/16 (BD Insulin Syringe Ultra-Fine) pen needle, diabetic 32 gauge x #350 ea 02/19/18 12/10/24 Rx 5/32 (BD Ultra-Fine Christy Pen Needle) cholecalciferol (vitamin D3) 25 2,000 unit PO DAILY 06/23/1812/10 History mcg (1,000 unit) capsule aspirin 81 mg tablet,delayed 81 mg PO DAILY 07/24/20 12/10/24 H istory release mecobalamin (vitamin B12) 1,000 1,000 mcg PO DAILY 07/24/20 History mcg chewable tablet blood sugar diagnostic #100 ea 12/18/20 12/10/24 Rx polyethylene glycol 3350 17 4 g PO DAILY PRN constipation /12/10/24 History gram/dose oral powder (Miralax) tramadol 25 mg tablet 50 mg PO Q8H PRN pain 09/01/2312/29 History flash glucose sensor (FreeStyle #2 ea 10/02/23 12/10/24 Rx Nomi 2 Sensor kit) Novolog FlexPen U-100 Insulin 100 40 unit (0.4 mL) subcut TID #48 m L 01/01/24 12/10/24 Rx unit/mL (3 mL) subcutaneous (insulin aspart U-100) fluticasone propionate 50 1 spray intranasal DAILY PRN 12/3112/10/24 History mcg/actuation nasal allergy symptoms spray,suspension lisinopril 10 mg tablet 10 mg PO DAILY #90 tabs 01/23/24 0 12/10/24 Rx blood sugar diagnostic (OneTouch #100 ea 04/09/24 12/10/24 Rx Ultra Test strips) blood-glucose sensor (FreeStyle #6 ea 05/13/24 12/10/24 Rx Nomi 3 Plus Sensor device) blood-glucose,odd bundle worker, cont #1 ea 05/13/24 12/10/24 Rx (FreeStyle Nomi 3 [place]) pen needle, diabetic 32 gauge x #150 ea 06/14/24 12/10/24 Rx 5/32 (BD Ultra-Fine Christy Pen Needle) loratadine 10 mg tablet 10 mg PO DAILY PRN for allergies 0 09/20/24 12/10/24 Rx #90 TABLETS allopurinol 300 mg tablet 300 mg PO DAILY #90 tabs 10/13/24 12/10/24 Rx furosemide 20 mg tablet 20 mg PO QDAY #90 tabs 10/13/24 Rx levothyroxine 112 mcg tablet 112 mcg PO DAILY #90 tabs 10/13/24 12/10/24 Rx montelukast 10 mg tablet 10 mg PO DAILY #90 tabs 10/13/24 0 12/10/24 Rx rosuvastatin 20 mg tablet 20 mg PO QDAY #90 tabs 10/13/24 Rx trazodone 50 mg tablet 50 mg PO QHS PRN insomnia #90 tabs 10/13/24 12/10/24 Rx fenofibrate micronized 134 mg 134 mg PO DAILY #90 caps 11/02/24 12/10/24 Rx capsule insulin degludec 200 unit/mL (3 50 unit subcut QHS 12/01/24 History mL) subcutaneous pen (Tresiba FlexTouch U-200 insulin) metoprolol succinate 50 mg 25 mg PO DAILY 12/01/24 12/10/24 H istory tablet,extended release 24 hr pantoprazole 40 mg tablet,delayed 40 mg PO Q OTHER DAY PRN heartbur n 12/01/24 12/10/24 History release fluticasone propionate 50 2 spray intranasal QDAY #16 grams 12/02/24 12/10/24 Rx mcg/actuation nasal spray,suspension (Flonase Allergy Relief) omega-3 fatty acids 1,000 mg 1,000 mg PO QDAY 12/02/24 12/10/24 History capsule potassium chloride 20 mEq 20 meq PO QDAY #90 tabs 12/02/24 0 12/10/24 Rx tablet,extended release(part/cryst) (Klor-Con M) prednisone 10 mg tablet 10 mg PO TID #15 tabs 12/10/2412/29 Rx Have you fallen in the past year?: No Nurse's Note: PATIENT FEELS THAT ATB HELPED CLEAR UP INFECTION; COMPLAINS OF EXCESSIVE MUCOUS, PRODUCTIVE COUGH,SOB, NAUSEA PFSH Medical History Wears partial dentures Wears glasses Post-menopausal History of Clostridium difficile infection MRSA infection Cancer History of steroid therapy Insulin dependent diabetes mellitus Diabetes Arthritis DVT (deep venous thrombosis) Back pain History of hiatal hernia History of IBS (more content not included)... Normal [facility] Amphetamine detection with 1 000 ng/mL as cutoffOrdered By: Leonie Loja on 12-08-2024 Amphetamines Screen method >1000 ng/mL Ql (U) Negative < 200 ng/mL [facility] No Panel InformationOrdered By: Leonie Loja on 12-08-2024 Urine Buprenorphine Qualitative Negative < 200 ng/mL [facility] Urine Oxycodone Screen Negative < 100 ng/mL [facility] Quantitative urine opiates m easurementOrdered By: Leonie Loja on 12-08-2024 Opiates Ql (U) Negative < 300 ng/mL [facility] Screening urine fentanyl chani surementOrdered By: Leonie Loja on 12-08-2024 fentaNYL Screen Ql (U) Negative [facility] Urine Drug Screen (VISTA)on 12-08-2024 AMPHETAMINES Negative Normal <1000 ng/mL [facility] Comment on above: Order Comment: UNKNO WN Performed By: #### L 505.5000, L3410.9992 ####[facility] [address] [place], [address] BARBITIURATES Negative Normal < 200 ng/mL [facility] Comment on above: Order Comment: UNKNO WN Performed By: #### L 505.5000, L3410.9992 ####[facility] [address] [place] [address] BENZODIAZIPINE Negative Normal < 200 ng/mL [facility] Comment on above: Order Comment: UNKNO WN Performed By: #### L 505.5000, L3410.9992 ####[facility] [address] [place] [address] BUP Ur Drug Scr Negative Normal < 200 ng/mL [facility] Comment on above: Order Comment: UNKNO WN Performed By: #### L 505.5000, L3410.9992 ####[facility] [address] [place], [address] COCAINE Negative Normal < 300 ng/mL [facility] Comment on above: Order Comment: UNKNO WN Performed By: #### L 505.5000, L3410.9992 ####[facility] [address] [facility] [address] Fentanyl Negative Normal [facility] Comment on above: Order Comment: UNKNO WN Performed By: #### L 505.5000, L3410.9992 ####[facility] [address] [facility] [address] METHADONE Negative Normal < 300 ng/mL [facility] Comment on above: Order Comment: UNKNO WN Performed By: #### L 505.5000, L3410.9992 ####[facility] [address] [facility] [address] OPIATES Negative Normal < 300 ng/mL [facility] Comment on above: Order Comment: UNKNO WN Performed By: #### L 505.5000, L3410.9992 ####[facility] [address] [facility] [address] OXYCODONE Negative Normal < 100 ng/mL [facility] Comment on above: Order Comment: UNKNO WN Performed By: #### L 505.5000, L3410.9992 ####[facility] [address] [place] [address] PCP Negative Normal < 25 ng/mL [facility] Comment on above: Order Comment: UNKNO WN Performed By: #### L 505.5000, L3410.9992 ####[facility] [address] [place] [address] THC Negative Normal < 50 ng/mL [facility] Comment on above: Order Comment: UNKNO WN Performed By: #### L 505.5000, L3410.9992 ####[facility] [address] [facility] [address] Urine benzodiazepine levelOr dered By: Leonie Loja on 12-08-2024 Benzodiazepines Ql (U) Negative < 200 ng/mL [facility] Urine cocaine levelOrdered B y: Leonie Basali on 12-08-2024 Cocaine Ql (U) Negative < 300 ng/mL [facility] Urine ajamv-7-tflaihabokhrcu abinol (THC) measurementOrdered By: Leonie Basali on 12-08-2024 Cannabinoids Screen Ql (U) Negative < 50 ng/mL [facility] Urine phencyclidine (PCP) de tectionOrdered By: Leonie Basali on 12-08-2024 Phencyclidine Ql (U) Negative < 25 ng/mL [facility] ED Prov Noteon 12-06-2024 ED Prov Note ED PROVIDER NOTE [facility] EMERGENCY DEPARTMENT NAME: Carolyn Cintron AGE: 79 y.o. : 1945 VISIT DATE: 12/06/2024 CSN: [id number] PCP: Ramón Coulter MD No chief complaint on file. 79-year-old female presents to the ER for evaluation of URI-like symptoms, patient endorses cough congestion for approximately a week. States she was given a Z-Quang without relief. No chest pain, no difficulty breathing, no lower extremity swelling, no atypical rashes, no headaches or meningeal pain Past Medical History: Diagnosis Date Asthma Diabetes mellitus (HCC) Gout High cholesterol 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 Hypothyroid Shigella dysentery Skin cancer Past Surgical History: Procedure Laterality Date CARPAL TUNNEL RELEASE Bilateral CHOLECYSTECTOMY 1993 COLONOSCOPY 1998 LAMINECTOMY DISC LUMBAR SINGLE LEVEL 10/15/2011 SKIN CANCER EXCISION 03/08/2021 left shoulder/Right cheek GABO/BSO 1979 TOTAL KNEE ARTHROPLASTY Bilateral UMBILICAL HERNIA REPAIR Family History Problem Relation Age of Onset Diabetes Mother Heart disease Mother Colon cancer Father Diabetes Sister Heart disease Sister Diabetes Brother Diabetes Son Diabetes Brother Heart disease Brother Diabetes Sister Heart disease Sister Diabetes Sister Social History [1] Previous Medications Medication Sig allopurinoL (ZYLOPRIM) 300 MG tablet Take 1 (one) tablet (300 mg total) by mouth daily . aspirin 81 MG EC tablet Take 1 (one) tablet (81 mg total) by mouth daily . blood sugar diagnostic (glucose blood) strips Use to test 6 times per day. DG code E11.65. Use what coordinates with pt meter. . blood sugar diagnostic (ONETOUCH ULTRA BLUE TEST STRIP) strips One touch ultra blue strips - use to check BG 6x a day.DX code E11.65 . blood sugar diagnostic (OneTouch Verio test strips) strips USe to check BG 4x daily, DX code E11.65 insulin used . blood sugar diagnostic (ONETOUCH VERIO) strips Use as directed 6 times/day One Touch Verio strips . cholecalciferol, vitamin D3, 25 mcg (1,000 unit) capsule Take 1 (one) capsule (1,000 Units total) by mouth 2 (two) times a day . cyanocobalamin (B-12) 1000 MCG tablet Take 1 (one) tablet (1,000 mcg total) by mouth daily . fenofibrate micronized (LOFIBRA) 134 MG capsule TAKE 1 CAPSULE BY MOUTH DAILY. TAKE WITH FOOD. fluticasone (FLONASE) 50 mcg/actuation nasal spray Instill 1 (one) spray into each nostril daily . furosemide (LASIX) 20 MG tablet Take 1 (one) tablet (20 mg total) by mouth every other day . insulin degludec (Tresiba FlexTouch U-200) 200 unit/mL (3 mL) InPn Inject 55 (fifty five) Units under the skin daily . isosorbide mononitrate (IMDUR) 30 MG 24 hr tablet Take 1 (one) tablet (30 mg total) by mouth daily . Klor-Con M20 20 mEq tablet Take 1 (one) tablet (20 mEq total) by mouth every other day . levothyroxine (SYNTHROID, LEVOTHROID) 112 MCG tablet Take 1 (one) tablet (112 mcg total) by mouth once daily . lisinopriL (PRINIVIL,ZESTRIL) 10 MG tablet Take 1 (one) tablet (10 mg total) by mouth daily . loratadine (Claritin Liqui-Gel) 10 mg cap Take 1 (one) capsule (10 mg total) by mouth daily . meloxicam (MOBIC) 15 MG tablet Take 1 (one) tablet (15 mg total) by mouth daily . metoprolol succinate (Toprol XL) 25 MG 24 hr tablet Take 1 (one) tablet (25 mg total) by mouth daily . montelukast (SINGULAIR) 10 mg tablet Take 1 (one) tablet (10 mg total) by mouth daily . NovoLIN N NPH U-100 Insulin 100 unit/mL injection Use as directed twice daily, approx 85 units daily (Needs Reli-on brand) . NovoLIN R Regular U-100 Insuln 100 unit/mL injection USE DIRECTED THREE TIMES DAILY INJECTING UP TO 80 UNITS PER DAY . OMEGA-3 FATTY ACIDS-FISH OIL ORAL Take 1 g by mouth 2 (two) times a day . pantoprazole (PROTONIX) 40 MG tablet Take 1 (one) tablet (40 mg total) by mouth daily . rosuvastatin (CRESTOR) 20 MG tablet Take 1 (one) tablet (20 mg total) by mouth daily . therapeutic multivitamin (THERAGRAN) tablet Take 1 (one) tablet by mouth daily . traZODone (DESYREL) 50 MG tablet Take by mouth nightly as needed for sleep. Allergies[2] Review of Systems All other systems reviewed and are negative. No data found. Physical Exam Vitals and nursing note reviewed. Constitutional: Appearance: Normal appearance. HENT: Head: Normocephalic and atraumatic. Right Ear: External ear normal. Left Ear: External ear normal. Nose: Nose normal. Mouth/Throat: Mouth: Mucous membranes are moist. Pharynx: Oropharynx is clear. Eyes: Extraocular Movements: Extraocular movements intact. Conjunctiva/sclera: Conjunctivae normal. Pupils: Pupils are equal, round, and reactive to light. Cardiovascular: Rate and Rhythm: Normal rate and regular rhythm. Musculoskeletal: General: Normal range of motion. Cervical back: Normal range of motion and neck supple. Pulmonary: Effort: Pulmonary effort is normal. Breath sounds: Normal (more content not included)... [facility] XR CHEST PA/APon 12-06-2024 XR CHEST PA/AP EXAMINATION: XR CHEST PA/AP HISTORY: ORDERING SYSTEM PROVIDED HISTORY: pna, TECHNOLOGIST PROVIDED HISTORY: Illness/Other Reason for exam: cough, phelgm Cancer History: . Surgery, RadiationHistory: . Encounter Type: Initial Additional signs and symptoms: n ORDERING SYSTEM PROVIDED DIAGNOSIS CODES: COMPARISON: None. FINDINGS: Cardiac silhouette within normal limits. Likely coarse interstitial markings seen throughout the lungs most prominent within the lung bases. Unchanged from the prior study. No focal consolidation. No pneumothorax. No mediastinal shift. Likely healing fracture of the proximal right humerus. Likely degenerative changes involving the proximal left humerus. IMPRESSION: 1. Likely atelectasis versus scarring within the bases. No dense consolidation is noted. No pneumothorax. 2. Likely healing fracture of the proximal right humerus. [employer] Workstation ID: [id number] Dictated by: LISA NORIEGA on FriDec 06, 2024 12:47:02 PM EDT Transcribed by: MASON ABRAHAM on FriDec 06, 2024 12:52:54 PM EDT Finalized by: LISA NORIEGA on FriDec 06, 2024 3:56:16 PM EDT [facility] Comment on above: Order Comment: Injur y/Trauma or Illness?:Illness/Other How long have you had these symptoms (acute/chronic)?:Acute Reason for exam?:cough, phelgm History of cancer?:. Surgeries, chemotherapy, or radiation?:. Type of Exam?:Initial Additional signs and symptoms?:n Fructosamineon 12-04-2024 FRUCTOSAMINE 273 umol/L Normal 0-285 [facility] Comment on above: Result Comment: Publ ished reference interval for apparently healthy subjects between age 20 and 60 is 205 - 285 umol/L and in a poorly controlled diabetic population is 228 - 563 umol/L with a mean of 396 umol/L. Performed at: [address] [id number] Legal Contracts Specialist: Joel Hart PhD, Phone: [phone] Performed By: #### L 501.5200, L300.4310, BTSPAT, L501.9985, L501.9520, L500.2500, L300.3900, L3400.0100, L100.0100 ####[facility] [address] [place], [place], [phone] MRSA/SAID NASAL SCREENon MRSA+SAID SCRN Reason for Exam: Surgery MRSA MRSA Negative S. AUREUS S. aureus Negative Normal [facility] Comment on above: Performed By: #### M 100.651 ####[facility] [address] [place], [place], [phone] Basic Metabolic Profile (BMP )on 12-02-2024 BUN/CRE 18.5 RATIO Normal 10-20 [facility] Comment on above: Performed By: #### L 501.5200, L300.4310, BTSPAT, L501.9985, L501.9520, L500.2500, L300.3900, L3400.0100, L100.0100 ####[facility] [address] [place], [place], [phone] Calcium [Mass/Vol] 10.3 mg/dL Normal 7.6-11.0 [facility] Comment on above: Performed By: #### L 501.5200, L300.4310, BTSPAT, L501.9985, L501.9520, L500.2500, L300.3900, L3400.0100, L100.0100 ####[facility] [address] [place], [address] Chloride [Moles/Vol] 102 mmol/L Normal 98-108 [facility] Comment on above: Performed By: #### L 501.5200, L300.4310, BTSPAT, L501.9985, L501.9520, L500.2500, L300.3900, L3400.0100, L100.0100 ####[facility] [address] [place], [address] CO2 [Moles/Vol] 23.7 mmol/L Normal 21.0-32.0 [facility] Comment on above: Performed By: #### L 501.5200, L300.4310, BTSPAT, L501.9985, L501.9520, L500.2500, L300.3900, L3400.0100, L100.0100 ####[facility] [address] [place], [address] Creatinine [Mass/Vol] 1.10 mg/dL Normal 0.70-1.20 [facility] Comment on above: Performed By: #### L 501.5200, L300.4310, BTSPAT, L501.9985, L501.9520, L500.2500, L300.3900, L3400.0100, L100.0100 ####[facility] [address] [place], [address] GAP 12 Normal 5-15 [facility] Comment on above: Performed By: #### L 501.5200, L300.4310, BTSPAT, L501.9985, L501.9520, L500.2500, L300.3900, L3400.0100, L100.0100 ####[facility] [address] [place], [address] GFR/1.73 sq M.predicted among non-blacks MDRD (S/P/Bld) [Vol rate/Area] 51 mL/min/{1.73_m2} Low >60 [facility] Comment on above: Result Comment: mL/m in/1.73m2 CKD-EPI Creatinine Equation (2020) Performed By: #### L 501.5200, L300.4310, BTSPAT, L501.9985, L501.9520, L500.2500, L300.3900, L3400.0100, L100.0100 ####[facility] [address] [place], [place], [phone]) Glucose [Mass/Vol] 123 mg/dL High 70-99 [facility] Comment on above: Performed By: #### L 501.5200, L300.4310, BTSPAT, L501.9985, L501.9520, L500.2500, L300.3900, L3400.0100, L100.0100 ####[facility] [address] [place], [place], [phone]) Potassium [Moles/Vol] 4.3 mmol/L Normal 3.3-5.1 [facility] Comment on above: Performed By: #### L 501.5200, L300.4310, BTSPAT, L501.9985, L501.9520, L500.2500, L300.3900, L3400.0100, L100.0100 ####[facility] [address] [place], [place], [phone]) Sodium [Moles/Vol] 138 mmol/L Normal 133-145 [facility] Comment on above: Performed By: #### L 501.5200, L300.4310, BTSPAT, L501.9985, L501.9520, L500.2500, L300.3900, L3400.0100, L100.0100 ####[facility] [address] [place], [address] Urea nitrogen [Mass/Vol] 20 mg/dL High 4-19 [facility] Comment on above: Performed By: #### L 501.5200, L300.4310, BTSPAT, L501.9985, L501.9520, L500.2500, L300.3900, L3400.0100, L100.0100 ####[facility] [address] [place], [address] CBC W/Diff, Automatedon 05- Absolute Lymph 1.35 X10 3/uL Normal 0.83-4.51 [facility] Comment on above: Performed By: #### L 501.5200, L300.4310, BTSPAT, L501.9985, L501.9520, L500.2500, L300.3900, L3400.0100, L100.0100 ####[facility] [address] [place], [address] Absolute Neut 4.9 X10 3/uL Normal 2.0-7.7 [facility] Comment on above: Performed By: #### L 501.5200, L300.4310, BTSPAT, L501.9985, L501.9520, L500.2500, L300.3900, L3400.0100, L100.0100 ####[facility] [address] [place], [address] Basophils/100 WBC (Bld) 0.6 % Normal 0-1 [facility] Comment on above: Performed By: #### L 501.5200, L300.4310, BTSPAT, L501.9985, L501.9520, L500.2500, L300.3900, L3400.0100, L100.0100 ####[facility] [address] [place], [address] Eosinophils/100 WBC (Bld) 2.0 % Normal 0-5 [facility] Comment on above: Performed By: #### L 501.5200, L300.4310, BTSPAT, L501.9985, L501.9520, L500.2500, L300.3900, L3400.0100, L100.0100 ####[facility] [address] [place], [address]( Erythrocyte distribution width (RBC) [Ratio] 15.6 % High 11.6-14.6 [facility] Comment on above: Performed By: #### L 501.5200, L300.4310, BTSPAT, L501.9985, L501.9520, L500.2500, L300.3900, L3400.0100, L100.0100 ####[facility] [address] [facility] [place], [phone] Hematocrit (Bld) [Volume fraction] 37.4 % Normal 37-47 [facility] Comment on above: Performed By: #### L 501.5200, L300.4310, BTSPAT, L501.9985, L501.9520, L500.2500, L300.3900, L3400.0100, L100.0100 ####[facility] [address] [facility] [place], [address] Hemoglobin (Bld) [Mass/Vol] 12.0 g/dL Normal 12.0-15.0 [facility] Comment on above: Performed By: #### L 501.5200, L300.4310, BTSPAT, L501.9985, L501.9520, L500.2500, L300.3900, L3400.0100, L100.0100 ####[facility] [address] [facility] [place], [address] IG% 0.300 Normal 0.0-0.9 [facility] Comment on above: Result Comment: IG% - Immature Granulocytes (promyelocytes, myelocytes and metamyelocytes) > 1% indicates that a LEFT SHIFT is Present. Performed By: #### L 501.5200, L300.4310, BTSPAT, L501.9985, L501.9520, L500.2500, L300.3900, L3400.0100, L100.0100 ####[facility] [address] [place], [address] Lymphocytes/100 WBC (Bld) 19.2 % Normal 19-41 [facility] Comment on above: Performed By: #### L 501.5200, L300.4310, BTSPAT, L501.9985, L501.9520, L500.2500, L300.3900, L3400.0100, L100.0100 ####[facility] [address] [place], [address] MCH (RBC) [Entitic mass] 31.3 pg Normal 27.0-32.0 [facility] Comment on above: Performed By: #### L 501.5200, L300.4310, BTSPAT, L501.9985, L501.9520, L500.2500, L300.3900, L3400.0100, L100.0100 ####[facility] [address] [place], [address] MCHC (RBC) [Mass/Vol] 32.1 g/dL Normal 32-36 [facility] Comment on above: Performed By: #### L 501.5200, L300.4310, BTSPAT, L501.9985, L501.9520, L500.2500, L300.3900, L3400.0100, L100.0100 ####[facility] [address] [place], [address] MCV (RBC) [Entitic vol] 97.4 fL Normal 81-99 [facility] Comment on above: Performed By: #### L 501.5200, L300.4310, BTSPAT, L501.9985, L501.9520, L500.2500, L300.3900, L3400.0100, L100.0100 ####[facility] [address] [place], [address] Monocytes/100 WBC (Bld) 8.7 % Normal 0-10 [facility] Comment on above: Performed By: #### L 501.5200, L300.4310, BTSPAT, L501.9985, L501.9520, L500.2500, L300.3900, L3400.0100, L100.0100 ####[facility] [address] [place], [address] Neutrophils/100 WBC (Bld) 69.2 % Normal 47-70 [facility] Comment on above: Performed By: #### L 501.5200, L300.4310, BTSPAT, L501.9985, L501.9520, L500.2500, L300.3900, L3400.0100, L100.0100 ####[facility] [address] [place], [address] Nucleated RBC (Bld) [#/Vol] 0 10*3/uL Normal 0-5 [facility] Comment on above: Performed By: #### L 501.5200, L300.4310, BTSPAT, L501.9985, L501.9520, L500.2500, L300.3900, L3400.0100, L100.0100 ####[facility] [address] [place], [address] Platelet mean volume (Bld) [Entitic vol] 9.1 fL Normal 6.2-12.0 [facility] Comment on above: Performed By: #### L 501.5200, L300.4310, BTSPAT, L501.9985, L501.9520, L500.2500, L300.3900, L3400.0100, L100.0100 ####[facility] [address] [place], [address] Platelets (Bld) [#/Vol] 199 10*3/uL Normal 150-450 [facility] Comment on above: Performed By: #### L 501.5200, L300.4310, BTSPAT, L501.9985, L501.9520, L500.2500, L300.3900, L3400.0100, L100.0100 ####[facility] [address] [place], [address] RBC (Bld) [#/Vol] 3.84 10*6/uL Low 4.2-5.4 [facility] Comment on above: Performed By: #### L 501.5200, L300.4310, BTSPAT, L501.9985, L501.9520, L500.2500, L300.3900, L3400.0100, L100.0100 ####[facility] [address] [place], [address] RDW SD 55.9 fl High 35.1-43.9 [facility] Comment on above: Performed By: #### L 501.5200, L300.4310, BTSPAT, L501.9985, L501.9520, L500.2500, L300.3900, L3400.0100, L100.0100 ####[facility] [address] [place], [address] WBC (Bld) [#/Vol] 7.0 10*3/uL Normal 4.4-11.0 [facility] Comment on above: Performed By: #### L 501.5200, L300.4310, BTSPAT, L501.9985, L501.9520, L500.2500, L300.3900, L3400.0100, L100.0100 ####[facility] [address] [place], [address] Hemoglobin A1con 12-02-2024 HbA1c (Bld) [Mass fraction] 6.9 % High <=5.6 [facility] Comment on above: Result Comment: Norm al < 5.7 % Prediabetic 5.7 - 6.4 % Diabetic >or= 6.5 % Please note range changes. Performed By: #### L 501.5200, L300.4310, BTSPAT, L501.9985, L501.9520, L500.2500, L300.3900, L3400.0100, L100.0100 ####[facility] [address] [place], [address] Influenza virus A and B and SARS-CoV-2 (COVID-19) and Respiratory syncytial virus RNAOrdered By: Bharat English on 12-02-2024 SARS-CoV-2 (COVID-19) RNA SABRINA+probe Ql (Unsp spec) [facility] Internal Medicine Office Vis iton 12-02-2024 Internal Medicine Office Visit [facility] [address] [place], [place] [address] OFFICE VISIT Date of Service: 12/02/24 MR#: [id number] Acct: [id number] Name: CAROLYN CINTRON Rep #: [id number] : 1945 Provider: GERRI Fraser Age/Sex: 79/F Location: [facility] [place].[facility] Status: Signed Intake Vital Signs 11/02/24 11:15 12/02/24 13:07 Height 5 ft 3 in 5 ft 3 in Weight: 193 lb BMI 34.2 BP 132/80 H Blood Pressure Location Lt brachial Position Sitting Respiration 20 H Pulse 76 Pulse Source Monitor Temp 98.6 F Temp Source Temporal Pulse Oximetry (%) 96 Oxygen Delivery Method room air Intake Visit Reasons: ACUTE SURG CLEARANCE [facility] Chief Complaint: Right Shoulder Follow-Up 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 Is patient in pain?: Yes (R shoulder) Pain scale (1-10): 4 Allergies Sulfa (Sulfonamide Antibiotics) Adverse Reaction (Severe, Verified 12/10/24 10:02) Upset Stomach Penicillins Adverse Reaction (Intermediate, Verified 12/10/24 10:02) Diarrhea cephalexin (From Keflex) Adverse Reaction (Verified 12/10/24 10:02) Nausea/Vom/Diarrhea Medications ???Medication ???Instructions ???Recorded ???Confirmed ???Type insulin syringe-needle U-100 0.3 #350 ea 07/17/17 12/10/24 Rx mL 31 gauge x 5/16 (BD Insulin Syringe Ultra-Fine) pen needle, diabetic 32 gauge x #350 ea 02/19/18 12/10/24 Rx 5/32 (BD Ultra-Fine Christy Pen Needle) cholecalciferol (vitamin D3) 25 2,000 unit PO DAILY 06/23/1812/10 History mcg (1,000 unit) capsule aspirin 81 mg tablet,delayed 81 mg PO DAILY 07/24/20 12/10/24 H istory release mecobalamin (vitamin B12) 1,000 1,000 mcg PO DAILY 07/24/20 History mcg chewable tablet blood sugar diagnostic #100 ea 12/18/20 12/10/24 Rx polyethylene glycol 3350 17 4 g PO DAILY PRN constipation /12/10/24 History gram/dose oral powder (Miralax) tramadol 25 mg tablet 50 mg PO Q8H PRN pain 09/01/2312/29 History flash glucose sensor (FreeStyle #2 ea 10/02/23 12/10/24 Rx Nomi 2 Sensor kit) Novolog FlexPen U-100 Insulin 100 40 unit (0.4 mL) subcut TID #48 m L 01/01/24 12/10/24 Rx unit/mL (3 mL) subcutaneous (insulin aspart U-100) fluticasone propionate 50 1 spray intranasal DAILY PRN 12/3112/10/24 History mcg/actuation nasal allergy symptoms spray,suspension lisinopril 10 mg tablet 10 mg PO DAILY #90 tabs 01/23/24 0 12/10/24 Rx blood sugar diagnostic (OneTouch #100 ea 04/09/24 12/10/24 Rx Ultra Test strips) blood-glucose sensor (FreeStyle #6 ea 05/13/24 12/10/24 Rx Nomi 3 Plus Sensor device) blood-glucose,odd bundle worker, cont #1 ea 05/13/24 12/10/24 Rx (FreeStyle Nomi 3 [place]) pen needle, diabetic 32 gauge x #150 ea 06/14/24 12/10/24 Rx 5/32 (BD Ultra-Fine Christy Pen Needle) loratadine 10 mg tablet 10 mg PO DAILY PRN for allergies 0 09/20/24 12/10/24 Rx #90 TABLETS allopurinol 300 mg tablet 300 mg PO DAILY #90 tabs 10/13/24 12/10/24 Rx furosemide 20 mg tablet 20 mg PO QDAY #90 tabs 10/13/24 Rx levothyroxine 112 mcg tablet 112 mcg PO DAILY #90 tabs 10/13/24 12/10/24 Rx montelukast 10 mg tablet 10 mg PO DAILY #90 tabs 10/13/24 0 12/10/24 Rx rosuvastatin 20 mg tablet 20 mg PO QDAY #90 tabs 10/13/24 Rx trazodone 50 mg tablet 50 mg PO QHS PRN insomnia #90 tabs 10/13/24 12/10/24 Rx fenofibrate micronized 134 mg 134 mg PO DAILY #90 caps 11/02/24 12/10/24 Rx capsule insulin degludec 200 unit/mL (3 50 unit subcut QHS 12/01/24 History mL) subcutaneous pen (Tresiba FlexTouch U-200 insulin) metoprolol succinate 50 mg 25 mg PO DAILY 12/01/24 12/10/24 H istory tablet,extended release 24 hr pantoprazole 40 mg tablet,delayed 40 mg PO Q OTHER DAY PRN heartbur n 12/01/24 12/10/24 History release fluticasone propionate 50 2 spray intranasal QDAY #16 grams 12/02/24 12/10/24 Rx mcg/actuation nasal spray,suspension (Flonase Allergy Relief) omega-3 fatty acids 1,000 mg 1,000 mg PO QDAY 12/02/24 12/10/24 History capsule potassium chloride 20 mEq 20 meq PO QDAY #90 tabs 12/02/24 0 12/10/24 Rx tablet,extended release(part/cryst) (Klor-Con M) prednisone 10 mg tablet 10 mg PO TID #15 tabs 12/10/2412/29 Rx Have you fallen in the past year?: No Nurse's Note: Pt is here for preop clearance, is having R shoulder done by Dr. Martel on 12/15/24. Pt has no concerns w/ the surgery. Pt cancelled the preop testing due to not feeling well, pt needed labs and EKG. Advised it could be done in office. * Pt started w/ a scratchy throat friday a cough this morning, had a runny nose for a few days and is having green snot. The cough is nonproductive,Pt does c/o rattling in the chest, headache, ear pain, nasal congestion. pt has wheezing and dyspnea gets worse u (more content not included)... Normal [facility] M100.678on 12-02-2024 M100.678 Pending SARS-CoV-2 (COVID 19) Negative INFLUENZA A Negative INFLUENZA B Negative RSV PCR Negative Normal [facility] Comment on above: Performed By: #### M 100.678 ####[facility] [address] [place], [place], [phone] Magnesiumon 12-02-2024 Magnesium [Mass/Vol] 1.8 mg/dL Normal 1.5-2.2 [facility] Comment on above: Performed By: #### L 501.5200, L300.4310, BTSPAT, L501.9985, L501.9520, L500.2500, L300.3900, L3400.0100, L100.0100 ####[facility] [address] [place], [place], [phone] Partial Thromboplast Timeon 12-02-2024 aPTT Coag (Bld) [Time] 30.0 s Normal 24.1-36.2 [facility] Comment on above: Performed By: #### L 501.5200, L300.4310, BTSPAT, L501.9985, L501.9520, L500.2500, L300.3900, L3400.0100, L100.0100 ####[facility] [address] [place], [place], [phone] Prothrombin Time w/INRon INR Coag (PPP) [Relative time] 1.0 {INR} Normal [facility] Comment on above: Performed By: #### L 501.5200, L300.4310, BTSPAT, L501.9985, L501.9520, L500.2500, L300.3900, L3400.0100, L100.0100 ####[facility] [address] [place], [address] PT Coag (PPP) [Time] 13.6 s Normal 11.7-14.9 [facility] Comment on above: Performed By: #### L 501.5200, L300.4310, BTSPAT, L501.9985, L501.9520, L500.2500, L300.3900, L3400.0100, L100.0100 ####[facility] [address] [place], [place], [phone] Thyroid Stim Hormone (TSH)on 12-02-2024 TSH 0.992 uIU/mL Normal 0.300-4.20 0 [facility] Comment on above: Performed By: #### L 501.5200, L300.4310, BTSPAT, L501.9985, L501.9520, L500.2500, L300.3900, L3400.0100, L100.0100 ####[facility] [address] [place], [place], [phone] Type AND Screen - PAT ONLYon 12-02-2024 ABO and Rh group Nom (Bld) Blood group A Rh(D) positive Normal [facility] Comment on above: Order Comment: Surge ry Date: 12/15/24Reason for Laboratory Test PRE-[id number](R) Right reverse Total Shoulder Replacement, ERAS Performed By: #### L 501.5200, L300.4310, BTSPAT, L501.9985, L501.9520, L500.2500, L300.3900, L3400.0100, L100.0100 ####[facility] [address] [place], [address] Orthopedic Visit Reporton Orthopedic Visit Report [facility] [address] [place] [address] OFFICE VISIT Date of Service: 11/08/24 MR#: [id number] Acct: [id number] Name: CAROLYN CINTRON Rep #: [id number] : 1945 Provider: Dr. Chris umana MD Age/Sex: 78/F Location: [facility] [place].[facility] Status: Signed Intake Vital Signs 09/27/24 13:13 11/02/24 11:15 Height 5 ft 3 in 5 ft 3 in Weight: 189 lb 4 oz BMI 33.5 BP 111/63 Blood Pressure Location Rt brachial Position Sitting Pulse 65 Pulse Source Monitor Pulse Oximetry (%) 95 Oxygen Delivery Method room air Intake Visit Reasons: RIGHT SHOULDER Chief Complaint: Right Shoulder Follow-Up Accompanied by: Self Is patient in pain?: Yes Pain scale (1-10): 8 Allergies Sulfa (Sulfonamide Antibiotics) Adverse Reaction (Severe, Verified 11/08/24 13:14) Upset Stomach Penicillins Adverse Reaction (Intermediate, Verified 11/08/24 13:14) Diarrhea cephalexin (From Keflex) Adverse Reaction (Verified 11/08/24 13:14) Nausea/Vom/Diarrhea Medications ???Medication ???Instructions ???Recorded ???Confirmed ???Type insulin syringe-needle U-100 0.3 #350 ea 07/17/17 11/08/24 Rx mL 31 gauge x 5/16 (BD Insulin Syringe Ultra-Fine) pen needle, diabetic 32 gauge x #350 ea 02/19/18 11/08/24 Rx 5/32 (BD Ultra-Fine Christy Pen Needle) cholecalciferol (vitamin D3) 25 1,000 unit PO DAILY 06/23/1811/08 History mcg (1,000 unit) capsule aspirin 81 mg tablet,delayed 81 mg PO DAILY 07/24/20 11/08/24 H istory release mecobalamin (vitamin B12) 1,000 1,000 mcg PO DAILY 07/24/20 History mcg chewable tablet blood sugar diagnostic #100 ea 12/18/20 11/08/24 Rx omega-3 fatty acids 1,000 mg 1,000 mg PO BID 01/23/23 11/08/24 History capsule polyethylene glycol 3350 17 4 g PO DAILY PRN 01/23/23 11/08/24 History gram/dose oral powder (Miralax) tramadol 25 mg tablet 25 mg PO BID PRN 09/01/23 11/08/24 History flash glucose sensor (FreeStyle #2 ea 10/02/23 11/08/24 Rx Nomi 2 Sensor kit) metoprolol succinate 50 mg 25 mg (1/2 x 50 mg) PO BID #180 11/08/24 Rx tablet,extended release 24 hr tabs Novolog FlexPen U-100 Insulin 100 40 unit (0.4 mL) subcut TID #48 m L 01/01/24 11/08/24 Rx unit/mL (3 mL) subcutaneous (insulin aspart U-100) fluticasone propionate 50 1 spray intranasal DAILY PRN 12/3111/08/24 History mcg/actuation nasal spray,suspension lisinopril 10 mg tablet 10 mg PO DAILY #90 tabs 01/23/24 0 11/08/24 Rx blood sugar diagnostic (OneTouch #100 ea 04/09/24 11/08/24 Rx Ultra Test strips) blood-glucose meter,continuous #1 ea 05/13/24 11/08/24 Rx (FreeStyle Nomi 3 [place]) blood-glucose sensor (FreeStyle #6 ea 05/13/24 11/08/24 Rx Nomi 3 Plus Sensor device) pen needle, diabetic 32 gauge x #150 ea 06/14/24 11/08/24 Rx 5/32 (BD Ultra-Fine Christy Pen Needle) loratadine 10 mg tablet 10 mg PO DAILY PRN for allergies 0 09/20/24 11/08/24 Rx #90 TABLETS potassium chloride 20 mEq 20 meq PO QDAY #90 tabs 09/21/24 0 11/08/24 Rx tablet,extended release(part/cryst) (Klor-Con M) allopurinol 300 mg tablet 300 mg PO DAILY #90 tabs 10/13/24 11/08/24 Rx furosemide 20 mg tablet 20 mg PO QDAY #90 tabs 10/13/24 Rx levothyroxine 112 mcg tablet 112 mcg PO DAILY #90 tabs 10/13/24 11/08/24 Rx montelukast 10 mg tablet 10 mg PO DAILY #90 tabs 10/13/24 0 11/08/24 Rx pantoprazole 40 mg tablet,delayed 40 mg PO Q OTHER DAY heartburn #4 5 10/13/24 11/08/24 Rx release tabs rosuvastatin 20 mg tablet 20 mg PO QDAY #90 tabs 10/13/24 Rx trazodone 50 mg tablet 50 mg PO QHS PRN insomnia #90 tabs 10/13/24 11/08/24 Rx insulin degludec 200 unit/mL (3 70 unit (0.35 mL) subcut QHS 10/2711/08/24 Rx mL) subcutaneous pen (Tresiba #31.52 mL FlexTouch U-200 insulin) fenofibrate micronized 134 mg 134 mg PO DAILY #90 caps 11/02/24 11/08/24 Rx capsule Have you fallen in the past year?: No PFSH Medical History Secondary osteoarthritis, right shoulder Right shoulder pain Osteopenia determined by x-ray Bilateral pseudophakia Amblyopia of left eye Dry eye syndrome of bilateral lacrimal glands Acute allergic conjunctivitis of both eyes Hypertriglyceridemia Encounter for long-term (current) insulin use Shingles Thyroid disease Skin cancer High cholesterol Gout Diabetes type 2, controlled Back problem Seasonal allergies Surgical History Status post Mohs surgery History of knee replacement History of carpal tunnel release Hx of hernia repair H/O total hysterectomy Hx of cataract surgery Hx of cholecystectomy History of back surg (more content not included)... Normal [facility] Endocrinology Visit Reporton 11-02-2024 Endocrinology Visit Report [facility] [address] [place] [address] OFFICE VISIT Date of Service: 11/02/24 MR#: [id number] Acct: [id number] Name: CAROLYN CINTRON Rep #: [id number] : 1945 Provider: Koko Barkley Age/Sex: 78/F Location: [facility] [place] Status: Signed Intake Vital Signs 05/13/24 11:09/27/24 13:13 11/02/24 11:15 Height 5 ft 3 in 5 ft 3 in 5 ft 3 in Weight: 189 lb 4 oz BMI 33.5 BP 111/63 Blood Pressure Location Rt brachial Position Sitting Pulse 65 Pulse Source Monitor Pulse Oximetry (%) 95 Oxygen Delivery Method room air Intake Visit Reasons: 4 M FU Chief Complaint: DM 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 Required: Yes Allergies Sulfa (Sulfonamide Antibiotics) Adverse Reaction (Severe, Verified 11/02/24 11:18) Upset Stomach Penicillins Adverse Reaction (Intermediate, Verified 11/02/24 11:18) Diarrhea cephalexin (From Keflex) Adverse Reaction (Verified 11/02/24 11:18) Nausea/Vom/Diarrhea Medications ???Medication ???Instructions ???Recorded ???Confirmed ???Type insulin syringe-needle U-100 0.3 #350 ea 07/17/17 11/02/24 Rx mL 31 gauge x 5/16 (BD Insulin Syringe Ultra-Fine) pen needle, diabetic 32 gauge x #350 ea 02/19/18 11/02/24 Rx 5/32 (BD Ultra-Fine Christy Pen Needle) cholecalciferol (vitamin D3) 25 1,000 unit PO DAILY 06/23/1811/02 History mcg (1,000 unit) capsule aspirin 81 mg tablet,delayed 81 mg PO DAILY 07/24/20 11/02/24 H istory release mecobalamin (vitamin B12) 1,000 1,000 mcg PO DAILY 07/24/20 History mcg chewable tablet blood sugar diagnostic #100 ea 12/18/20 11/02/24 Rx omega-3 fatty acids 1,000 mg 1,000 mg PO BID 01/23/23 11/02/24 History capsule polyethylene glycol 3350 17 4 g PO DAILY PRN 01/23/23 11/02/24 History gram/dose oral powder (Miralax) tramadol 25 mg tablet 25 mg PO BID PRN 09/01/23 11/02/24 History flash glucose sensor (FreeStyle #2 ea 10/02/23 11/02/24 Rx Nomi 2 Sensor kit) metoprolol succinate 50 mg 25 mg (1/2 x 50 mg) PO BID #180 11/02/24 Rx tablet,extended release 24 hr tabs Novolog FlexPen U-100 Insulin 100 40 unit (0.4 mL) subcut TID #48 m L 01/01/24 11/02/24 Rx unit/mL (3 mL) subcutaneous (insulin aspart U-100) fluticasone propionate 50 1 spray intranasal DAILY PRN 12/3111/02/24 History mcg/actuation nasal spray,suspension lisinopril 10 mg tablet 10 mg PO DAILY #90 tabs 01/23/24 0 11/02/24 Rx blood sugar diagnostic (OneTouch #100 ea 04/09/24 11/02/24 Rx Ultra Test strips) blood-glucose meter,continuous #1 ea 05/13/24 11/02/24 Rx (FreeStyle Nomi 3 [place]) blood-glucose sensor (FreeStyle #6 ea 05/13/24 11/02/24 Rx Nomi 3 Plus Sensor device) pen needle, diabetic 32 gauge x #150 ea 06/14/24 11/02/24 Rx 5/32 (BD Ultra-Fine Christy Pen Needle) loratadine 10 mg tablet 10 mg PO DAILY PRN for allergies 0 09/20/24 11/02/24 Rx #90 TABLETS potassium chloride 20 mEq 20 meq PO QDAY #90 tabs 09/21/24 0 11/02/24 Rx tablet,extended release(part/cryst) (Jose M Bedolla) allopurinol 300 mg tablet 300 mg PO DAILY #90 tabs 10/13/24 11/02/24 Rx furosemide 20 mg tablet 20 mg PO QDAY #90 tabs 10/13/24 Rx levothyroxine 112 mcg tablet 112 mcg PO DAILY #90 tabs 10/13/24 11/02/24 Rx montelukast 10 mg tablet 10 mg PO DAILY #90 tabs 10/13/24 0 11/02/24 Rx pantoprazole 40 mg tablet,delayed 40 mg PO Q OTHER DAY heartburn #4 5 10/13/24 11/02/24 Rx release tabs rosuvastatin 20 mg tablet 20 mg PO QDAY #90 tabs 10/13/24 Rx trazodone 50 mg tablet 50 mg PO QHS PRN insomnia #90 tabs 10/13/24 11/02/24 Rx insulin degludec 200 unit/mL (3 70 unit (0.35 mL) subcut QHS 10/2711/02/24 Rx mL) subcutaneous pen (Tresiba #31.52 mL FlexTouch U-200 insulin) fenofibrate micronized 134 mg 134 mg PO DAILY #90 caps 11/02/24 11/02/24 Rx capsule Have you fallen in the past year?: No PFSH Medical History Secondary osteoarthritis, right shoulder Right shoulder pain Osteopenia determined by x-ray Bilateral pseudophakia Amblyopia of left eye Dry eye syndrome of bilateral lacrimal glands Acute allergic conjunctivitis of both eyes Hypertriglyceridemia Encounter for long-term (current) insulin use Shingles Thyroid disease Skin cancer High cholesterol Gout Diabetes type 2, controlled Back problem Seasonal allergies Surgical History Status post Mohs surgery History of knee replacement History of carpal tunnel release Hx of hernia repair H/O total hysterectomy Hx of cataract surgery Hx of cholecystectomy History of back surgery Family History (Reviewed 11/02/24 @ 12:31 (more content not included)... Normal [facility] Upper Ext Joint Only(Routine )on 10-25-2024 Upper Ext Joint Only(Routine) [facility] [address] [place] [address] Upper Ext Joint Only(Routine) MR#: [id number] Acct: [id number] Name: CAROLYN CINTRON Rep #: [id number] : 1945 F 78 From: Johanna reed MD PCP: Dr. Ramón Coulter MD Status: REG CLI Study: Upper Ext Joint Only(Routine) Date of Exam: 0 10/25/24 Exam# [id number] Ordering Dr: Ramón Coulter MD COMPARISON: Multiplanar MRI was performed through the right shoulder without intravenous contrast. Images were sent through PACs for diagnostic interpretation. FINDINGS: Abnormal osseous modeling of the humeral head and neck showing contour irregularity and marrow edema of its neck, possibly sequel of old malunited fracture. The supraspinatus tendon shows intrasubstance high signal with focal near total interruption of its anterior insertional fibers. No evidence of complete fibers interruption. Thickening and intrasubstance high signal of the subscapularis tendon with partial fibers interruption. Intrasubstance high signal of the infraspinatus tendon with no evidence of complete fibers interruption. Fatty changes of its muscle belly. The teres minor tendon appears intact. High signal of the intra-articular segment of the long head of biceps tendon. Fluid signal distending its sheath. Attenuated glenoid labrum showing diffuse high signal. 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 Marginal lipping of the glenohumeral articular surface with subcortical marrow edema. Mild glenohumeral joint effusion Fluid signal distending the subcoracoid and subacromial/subdeltoid bursa. No marrow infiltrative lesions. The neurovascular bundles appear unremarkable. MRI/Upper Ext Joint Only(Routine) IMPRESSION: Abnormal osseous modeling of the humeral head and neck showing contour irregularity and marrow edema of its neck, possibly sequel of old malunited fracture. Advanced degenerative arthropathic changes of the acromioclavicular joint with subacromial impingement. Supraspinatus tendonitis with partial thickness tear. Subscapularis tendonitis with partial thickness tear. Infraspinatus tendonitis. Tendonitis of the long head of biceps tendon. Glenohumeral degenerative arthropathy with mild joint effusion subcoracoid and subacromial/subdeltoid bursitis. Reading Location: [place] [address] CC: Dr. Ramón Coulter MD Care Management Coordinator: Signed Normal [facility] Extremity Upper without Cont raon 10-20-2024 Extremity Upper without Contra [facility] [address] [place] [address] Extremity Upper without Contra MR#: [id number] Acct: [id number] Name: CAROLYN CINTRON Rep #: [id number] : 1945 F 78 From: Johanna reed MD PCP: Dr. Ramón Pako, MD Status: REG CLI Study: Extremity Upper without Contra Date of Exam: 0 10/20/24 Exam# [id number] Ordering Dr: Chris Martel MD PROCEDURE: EXTREMITY UPPER WITHOUT CONTRA 10/20/2024 REASON FOR EXAM: SURGICAL PLANNING FOR RTSA / BLUEPRINT CUTS TECHNIQUE: Axial CT images of the right shoulder obtained without intravenous contrast. Coronal and Sagittal reconstruction series were provided. One or more dose reduction techniques were used (e.g., Automated exposure control, adjustment of the mA and/or kV according to patient size, use of iterative reconstruction technique RADIATION DOSE SUMMARY: CTDlvol: 23 mGy DLP: 544 mGycm COMPARISON: Radiographs on 09/27/2024. FINDINGS: Mild osteopenia of the visualized bones. Chronic deformities of the humeral head and neck secondary to healed fractures. Moderate to severe degenerative joint disease of the acromioclavicular and glenohumeral joints. Elevation of the humeral head with narrowing of the subacromial space, probably secondary to chronic rotator cuff tendons tears. Moderate chronic atrophy of the supraspinatus muscle. No lytic or blastic aggressive bone lesion is identified. CT/Extremity Upper without Contra IMPRESSION: 1. No CT evidence of an acute abnormality. 2. Moderate to severe degenerative joint disease of the acromioclavicular and glenohumeral joints. Reading Location: [place] [address] CC: Dr. Ramón Coulter MD; Dr. Chris Martel MD Care Management Coordinator: Signed Normal [facility] Anion gap in Serum or Plasma Ordered By: Ramón Coulter on 10-13-2024 Anion gap [Moles/Vol] 14 mmol/L 5-15 [facility] BUN/creatinine ratioOrdered By: Ramón Coulter on 10-13-2024 Urea nitrogen/Creatinine [Mass ratio] 27.2 mg/mg High 10-20 [facility] Basic Metabolic Profile (BMP )on 10-13-2024 BUN/CRE 27.2 RATIO High -20 [facility] Comment on above: Performed By: #### L 500.4100, L500.2500 ####[facility] [address] [place], [address] Calcium [Mass/Vol] 9.9 mg/dL Normal 7.6-11.0 [facility] Comment on above: Performed By: #### L 500.4100, L500.2500 ####[facility] [address] [place], [address] Chloride [Moles/Vol] 101 mmol/L Normal 98-108 [facility] Comment on above: Performed By: #### L 500.4100, L500.2500 ####[facility] [address] [place], [address] CO2 [Moles/Vol] 23.1 mmol/L Normal 21.0-32.0 [facility] Comment on above: Performed By: #### L 500.4100, L500.2500 ####[facility] [address] [place], [address] Creatinine [Mass/Vol] 1.04 mg/dL Normal 0.70-1.20 [facility] Comment on above: Performed By: #### L 500.4100, L500.2500 ####[facility] [address] [place], [address] GAP 14 Normal 5-15 [facility] Comment on above: Performed By: #### L 500.4100, L500.2500 ####[facility] [address] [place], [address] GFR/1.73 sq M.predicted among non-blacks MDRD (S/P/Bld) [Vol rate/Area] 55 mL/min/{1.73_m2} Low >60 [facility] Comment on above: Result Comment: mL/m in/1.73m2 CKD-EPI Creatinine Equation (2020) Performed By: #### L 500.4100, L500.2500 ####[facility] [address] [place], [address] Glucose [Mass/Vol] 112 mg/dL High 70-99 [facility] Comment on above: Performed By: #### L 500.4100, L500.2500 ####[facility] [address] [place], [address] Potassium [Moles/Vol] 4.2 mmol/L Normal 3.3-5.1 [facility] Comment on above: Performed By: #### L 500.4100, L500.2500 ####[facility] [address] [place], [address] Sodium [Moles/Vol] 139 mmol/L Normal 133-145 [facility] Comment on above: Performed By: #### L 500.4100, L500.2500 ####[facility] [address] [place], [address] Urea nitrogen [Mass/Vol] 28 mg/dL High 4-19 [facility] Comment on above: Performed By: #### L 500.4100, L500.2500 ####[facility] [address] [place], [address] Calculated very low density lipoprotein (VLDL) cholesterol measurementOrdered By: Ramón Coulter on 10-13-2024 Calculated very low density lipoprotein (VLDL) cholesterol measurement 134 mg/dL High 5-40 [facility] VLDL Cholesterol 134 mg/dL High 5-40 [facility] Carbon dioxide, total [Moles /volume] in Central venous bloodOrdered By: Ramón Coulter on 10-13-2024 CO2 [Moles/Vol] 23.1 mmol/L 21.0-32.0 [facility] Chloride assayOrdered By: Tino Coulter on 10-13-2024 Chloride [Moles/Vol] 101 mmol/L 98-108 [facility] GFR/1.73 sq M.predicted alberto g non-blacks MDRD (S/P/Bld) [Vol rate/Area]Ordered By: Ramón Coulter on 10-13-2024 Estimated GFR (MDRD) Non-Af Amer 55 Low >60 [facility] Comment on above: mL/min/1.73m2 CKD-EP I Creatinine Equation (2020) Glomerular filtration rate ( GFR) estimation/1.73 sq m using serum, plasma, or whole bOrdered By: Ramón Coulter on 10-13-2024 GFR/1.73 sq M.predicted among non-blacks MDRD (S/P/Bld) [Vol rate/Area] 55 mL/min/{1.73_m2} Low >60 [facility] Comment on above: mL/min/1.73m2 CKD-EP I Creatinine Equation (2020) LDL calc ser/plasOrdered By: Ramón Coulter on 10-13-2024 Cholesterol in LDL [Mass/Vol] 2 mg/dL [facility] Comment on above: Qlgfdcutua=147-149 m g/dL & Higher Eezo=449 mg/dL or greater LDL Cholesterol, Calculated 2 mg/dL [facility] Comment on above: Kzpmugfpnf=672-935 m g/dL & Higher Xydp=371 mg/dL or greater Laboratory - Hematology and Cell countsOrdered By: Ramón Coulter on 10-13-2024 HbA1c (Bld) [Mass fraction] 6.8 % High 4.2-6.3 [facility] Lipid Profileon 10-13-2024 CHOL:HDL 5.03 Normal [facility] Comment on above: Performed By: #### L 500.4100, L500.2500 ####[facility] [address] [place], [place], [id number]) Cholesterol [Mass/Vol] 170 mg/dL Normal <=200 [facility] Comment on above: Result Comment: Chol esterol level, Desirable <200 mg/dL Borderline high cholesterol 200-239 mg/dL High cholesterol >=240 mg/dL Recommendations of the NCEP Adult Treatment Panel for the following risk-cutoff thresholds for the [place] population. Performed By: #### L 500.4100, L500.2500 ####[facility] [address] [place], [address] Cholesterol in HDL [Mass/Vol] 34 mg/dL Low [facility] Comment on above: Result Comment: Erica fox Cholesterol Education Program (NCEP) guidelines: <40 mg/dL: Low HDL-cholesterol (major risk factor for CHD) >= 60 mg/dL: High HDL-cholesterol (negative risk factor for CHD) HDL-cholesterol is affected by a number of factors, e.g. smoking, exercise, hormones, sex and age. Performed By: #### L 500.4100, L500.2500 ####[facility] [address] [place], [address] Cholesterol in LDL [Mass/Vol] 2 mg/dL Normal [facility] Comment on above: Result Comment: Bord qsdtrv=083-548 mg/dL Higher Jjaf=377 mg/dL or greater Performed By: #### L 500.4100, L500.2500 ####[facility] [address] [place], [address] Cholesterol in VLDL [Mass/Vol] 134 mg/dL High 5-40 [facility] Comment on above: Performed By: #### L 500.4100, L500.2500 ####[facility] [address] [place], [address] Triglyceride [Mass/Vol] 672 mg/dL High [facility] Comment on above: Result Comment: The drugs N-Acetylcysteine and Metamizole may falsely depress this assay. Normal range: <150 mg/dL Borderline High: 150-199 mg/dL High: 200-499 mg/dL Very High: >500 mg/dL Performed By: #### L 500.4100, L500.2500 ####[facility] [address] [place], [address] Potassium (Unsp spec) [Mass/ Vol]Ordered By: Ramón Coulter on 10-13-2024 Potassium [Moles/Vol] 4.2 mmol/L 3.3-5.1 [facility] Potassium measurement (mass/ volume)Ordered By: Ramón Coulter on 10-13-2024 Potassium (Unsp spec) [Mass/Vol] 4.2 mmol/L 3.3-5.1 [facility] Screening total cholesterol/ high density lipoprotein (HDL) cholesterol ratioOrdered By: Ramón Coulter on 10-13-2024 Cholesterol.total/Chol esterol in HDL [Mass ratio] 5.03 {ratio} [facility] Serum creatinine measurement (mass/volume)Ordered By: Ramón Coulter on 10-13-2024 Creatinine [Mass/Vol] 1.04 mg/dL 0.70-1.20 [facility] Serum glucose measurement (m ass/volume)Ordered By: Ramón Coulter on 10-13-2024 Glucose [Mass/Vol] 112 mg/dL High 70-99 [facility] Serum or plasma calcium fallon urement (mass/volume)Ordered By: Ramón Coulter on 10-13-2024 Calcium [Mass/Vol] 9.9 mg/dL 7.6-11.0 [facility] Serum or plasma cholesterol in HDL measurement (mass/volume)Ordered By: Ramón Coulter on 10-13-2024 Cholesterol in HDL [Mass/Vol] 34 mg/dL Low >40 [facility] Comment on above: National Cholesterol Education Program (NCEP) guidelines:<40 mg/dL: Low HDL-cholesterol (major risk factor for CHD)>= 60 mg/dL: High HDL-cholesterol (negative risk factor for CHD)HDL-cholesterol is affected by a number of factors, e.g. smoking, exercise, hormones, sex and age. Serum or plasma cholesterol measurement (mass/volume)Ordered By: Ramón Coulter on 10-13-2024 Cholesterol [Mass/Vol] 170 mg/dL <201 [facility] Comment on above: Cholesterol level, D esirable <200 mg/dLBorderline high cholesterol 200-239 mg/dLHigh cholesterol >=240 mg/dLRecommendations of the NCEP Adult Treatment Panel for the following risk-cutoff thresholds for the [place] population. Serum or plasma urea nitroge n measurement (mass/volume)Ordered By: Ramón Coulter on 10-13-2024 Urea nitrogen [Mass/Vol] 28 mg/dL High 4-19 [facility] Sodium levelOrdered By: Wero Coulter on 10-13-2024 Sodium [Moles/Vol] 139 mmol/L 133-145 [facility] Triglycerides measurementOrd ered By: Ramón Coulter on 10-13-2024 Triglyceride [Mass/Vol] 672 mg/dL High <199 [facility] Comment on above: The drugs N-Acetylcy steine and Metamizole may falsely depress this assay. Normal range: <150 mg/dLBorderline High: 150-199 mg/dLHigh: 200-499 mg/dLVery High: >500 mg/dL Internal Medicine Office Vis itoderek 10-12-2024 Internal Medicine Office Visit [facility] [address] [place], [place] [address] OFFICE VISIT Date of Service: 10/13/24 MR#: [id number] Acct: [id number] Name: CAROLYN CINTRON Rep #: [id number] : 1945 Provider: Dr. 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 Accompanied by: Is patient in pain?: No Allergies Sulfa (Sulfonamide Antibiotics) Adverse Reaction (Severe, Verified 10/13/24 13:23) Upset Stomach Penicillins Adverse Reaction (Intermediate, Verified 10/13/24 13:23) Diarrhea cephalexin (From Keflex) Adverse Reaction (Verified 10/13/24 13:23) Nausea/Vom/Diarrhea Medications ???Medication ???Instructions ???Recorded ???Confirmed ???Type insulin syringe-needle U-100 0.3 #350 ea 07/17/17 10/13/24 Rx mL 31 gauge x 5/16 (BD Insulin Syringe Ultra-Fine) pen needle, diabetic 32 gauge x #350 ea 02/19/18 10/13/24 Rx 5/32 (BD Ultra-Fine Christy Pen Needle) cholecalciferol (vitamin D3) 25 1,000 unit PO DAILY 06/23/1810/13 History mcg (1,000 unit) capsule aspirin 81 mg tablet,delayed 81 mg PO DAILY 07/24/20 10/13/24 H istory release mecobalamin (vitamin B12) 1,000 1,000 mcg PO DAILY 07/24/20 History mcg chewable tablet blood sugar diagnostic #100 ea 12/18/20 10/13/24 Rx omega-3 fatty acids 1,000 mg 1,000 mg PO BID 01/23/23 10/13/24 History capsule polyethylene glycol 3350 17 4 g PO DAILY PRN 01/23/23 10/13/24 History gram/dose oral powder (Miralax) tramadol 25 mg tablet 25 mg PO BID PRN 09/01/23 10/13/24 History flash glucose sensor (FreeStyle #2 ea 10/02/23 10/13/24 Rx Nomi 2 Sensor kit) metoprolol succinate 50 mg 25 mg (1/2 x 50 mg) PO BID #180 10/13/24 Rx tablet,extended release 24 hr tabs Novolog FlexPen U-100 Insulin 100 40 unit (0.4 mL) subcut TID #48 m L 01/01/24 10/13/24 Rx unit/mL (3 mL) subcutaneous (insulin aspart U-100) fluticasone propionate 50 1 spray intranasal DAILY PRN 12/3110/13/24 History mcg/actuation nasal spray,suspension lisinopril 10 mg tablet 10 mg PO DAILY #90 tabs 01/23/24 0 10/13/24 Rx insulin degludec 200 unit/mL (3 55 unit subcut QHS 02/20/24 History mL) subcutaneous pen (Tresiba FlexTouch U-200 insulin) blood sugar diagnostic (OneTouch #100 ea 04/09/24 10/13/24 Rx Ultra Test strips) blood-glucose meter,continuous #1 ea 05/13/24 10/13/24 Rx (FreeStyle Nomi 3 [place]) blood-glucose sensor (FreeStyle #6 ea 05/13/24 10/13/24 Rx Nomi 3 Plus Sensor device) pen needle, diabetic 32 gauge x #150 ea 06/14/24 10/13/24 Rx 5/32 (BD Ultra-Fine Christy Pen Needle) loratadine 10 mg tablet 10 mg PO DAILY PRN for allergies 0 09/20/24 10/13/24 Rx #90 TABLETS potassium chloride 20 mEq 20 meq PO QDAY #90 tabs 09/21/24 0 10/13/24 Rx tablet,extended release(part/cryst) (Klor-Con M) allopurinol 300 mg tablet 300 mg PO DAILY #90 tabs 10/13/24 10/13/24 Rx furosemide 20 mg tablet 20 mg PO QDAY #90 tabs 10/13/24 Rx levothyroxine 112 mcg tablet 112 mcg PO DAILY #90 tabs 10/13/24 10/13/24 Rx montelukast 10 mg tablet 10 mg PO DAILY #90 tabs 10/13/24 0 10/13/24 Rx pantoprazole 40 mg tablet,delayed 40 mg PO Q OTHER DAY heartburn #4 5 10/13/24 10/13/24 Rx release tabs rosuvastatin 20 mg tablet 20 mg PO QDAY #90 tabs 10/13/24 Rx trazodone 50 mg tablet 50 mg PO QHS PRN insomnia #90 tabs 10/13/24 10/13/24 Rx Have you fallen in the past year?: No Nurse's Note: Needs allopurinolol, singular,crestor,synthr oid,trazadone,lasix and protonix refilled. [facility] Medical History Secondary osteoarthritis, right shoulder Right shoulder pain Osteopenia determined by x-ray Bilateral pseudophakia Amblyopia of left eye Dry eye syndrome of bilateral lacrimal glands Acute allergic conjunctivitis of both eyes Hypertriglyceridemia Encounter for long-term (current) insulin use Shingles Thyroid disease Skin cancer High cholesterol Gout Diabetes type 2, controlled Back problem Seasonal allergies Surgical History Status post Mohs surgery History of knee replacement History of carpal tunnel release Hx of hernia repair H/O total hysterectomy Hx of cataract surgery Hx of cholecystectomy History of back surgery Family History ... Normal [place] [facility] Orthopedic Visit Reporton Orthopedic Visit Report [facility] [facility] [address] [place] [address] OFFICE VISIT Date of Service: 09/27/24 MR#: [id number] Acct: [id number] Name: CAROLYN CINTRON Rep #: [id number] : 1945 Provider: Dr. Chris umana MD Age/Sex: 78/F Location: [facility] [facility] Status: Signed Intake Vital Signs 09/20/24 13:31 09/27/24 13:13 Height 5 ft 3 in 5 ft 3 in Weight: 186 lb 187 lb BMI 32.9 33.1 BP 136/66 H Blood Pressure Location Lt brachial Position Sitting Respiration 20 H Pulse 69 Pulse Source Monitor Temp 98.2 F Temp Source Temporal Pulse Oximetry (%) 98 Oxygen Delivery Method room air Intake Visit Reasons: RIGHT SHOULDER Chief Complaint: Right shoulder pain Accompanied by: Self Is patient in pain?: No Allergies Sulfa (Sulfonamide Antibiotics) Adverse Reaction (Severe, Verified 09/27/24 13:15) Upset Stomach Penicillins Adverse Reaction (Intermediate, Verified 09/27/24 13:15) Diarrhea cephalexin (From Keflex) Adverse Reaction (Verified 09/27/24 13:15) Nausea/Vom/Diarrhea Medications ???Medication ???Instructions ???Recorded ???Confirmed ???Type insulin syringe-needle U-100 0.3 #350 ea 07/17/17 09/27/24 Rx mL 31 gauge x 5/16 (BD Insulin Syringe Ultra-Fine) pen needle, diabetic 32 gauge x #350 ea 02/19/18 09/27/24 Rx 5/32 (BD Ultra-Fine Christy Pen Needle) cholecalciferol (vitamin D3) 25 1,000 unit PO DAILY 06/23/1809/27 History mcg (1,000 unit) capsule aspirin 81 mg tablet,delayed 81 mg PO DAILY 07/24/20 09/27/24 H istory release mecobalamin (vitamin B12) 1,000 1,000 mcg PO DAILY 07/24/20 History mcg chewable tablet blood sugar diagnostic #100 ea 12/18/20 09/27/24 Rx omega-3 fatty acids 1,000 mg 1,000 mg PO BID 01/23/23 09/27/24 History capsule polyethylene glycol 3350 17 4 g PO DAILY PRN 01/23/23 09/27/24 History gram/dose oral powder (Miralax) tramadol 25 mg tablet 25 mg PO BID PRN 09/01/23 09/27/24 History flash glucose sensor (FreeStyle #2 ea 10/02/23 09/27/24 Rx Nomi 2 Sensor kit) furosemide 20 mg tablet 20 mg PO QDAY #90 tabs 10/13/23 Rx metoprolol succinate 50 mg 25 mg (1/2 x 50 mg) PO BID #180 09/27/24 Rx tablet,extended release 24 hr tabs Novolog FlexPen U-100 Insulin 100 40 unit (0.4 mL) subcut TID #48 m L 01/01/24 09/27/24 Rx unit/mL (3 mL) subcutaneous (insulin aspart U-100) fluticasone propionate 50 1 spray intranasal DAILY PRN 12/3109/27/24 History mcg/actuation nasal spray,suspension lisinopril 10 mg tablet 10 mg PO DAILY #90 tabs 01/23/24 0 09/27/24 Rx insulin degludec 200 unit/mL (3 55 unit subcut QHS 02/20/24 History mL) subcutaneous pen (Tresiba FlexTouch U-200 insulin) blood sugar diagnostic (OneTouch #100 ea 04/09/24 09/27/24 Rx Ultra Test strips) allopurinol 300 mg tablet 300 mg PO DAILY #90 tabs 04/14/24 09/27/24 Rx levothyroxine 112 mcg tablet 112 mcg PO DAILY #90 tabs 04/14/24 09/27/24 Rx rosuvastatin 20 mg tablet 20 mg PO QDAY #90 tabs 04/14/24 Rx trazodone 50 mg tablet 50 mg PO QHS PRN insomnia #90 tabs 04/14/24 09/27/24 Rx blood-glucose meter,continuous #1 ea 05/13/24 09/27/24 Rx (FreeStyle Nomi 3 [place]) blood-glucose sensor (FreeStyle #6 ea 05/13/24 09/27/24 Rx Nomi 3 Plus Sensor device) pen needle, diabetic 32 gauge x #150 ea 06/14/24 09/27/24 Rx 5/32 (BD Ultra-Fine Christy Pen Needle) montelukast 10 mg tablet 10 mg PO DAILY #90 tabs 07/20/24 0 09/27/24 Rx loratadine 10 mg tablet 10 mg PO DAILY PRN for allergies 0 09/20/24 09/27/24 Rx #90 TABLETS potassium chloride 20 mEq 20 meq PO QDAY #90 tabs 09/21/24 0 09/27/24 Rx tablet,extended release(part/cryst) (Klor-Con M) Have you fallen in the past year?: Yes PFS Medical History (Updated 09/27/24 @ 13:50 by Chris Martel MD) Secondary osteoarthritis, right shoulder Right shoulder pain Osteopenia determined by x-ray Bilateral pseudophakia Amblyopia of left eye Dry eye syndrome of bilateral lacrimal glands Acute allergic conjunctivitis of both eyes Hypertriglyceridemia Encounter for long-term (current) insulin use Shingles Thyroid disease Skin cancer High cholesterol Gout Diabetes type 2, controlled Back problem Seasonal allergies Surgical History Status post Mohs surgery History of knee replacement History of carpal tunnel release Hx of hernia repair H/O total hysterectomy Hx of cataract surgery Hx of cholecystectomy History of back surgery Family History Father Colon cancer Mother Diabetes Myocardial infarction Son Kidney s (more content not included)... Normal [facility] Shoulder min 2 Viewson 09-27 Shoulder min 2 Views [facility] [address] [place] [address] Shoulder min 2 Views MR#: [id number] Acct: [id number] Name: CAROLYN CINTRON Rep #: [id number] : 1945 F 78 From: González Jeter MD PCP: Dr. Ramón Coulter MD Status: DEP AMB Study: Shoulder min 2 Views Date of Exam: 09/27/24 Exam# [id number] Ordering Dr: Chris Martel MD EXAM: XR Right Shoulder Complete, 2 or More Views CLINICAL INDICATION: , PT FELL IN MAY AND FX ARM, CONTINUED PAIN TECHNIQUE: Two or more views of the right shoulder. COMPARISON: No relevant prior studies available. FINDINGS: BONES/JOINTS: Healed fracture deformity of the proximal humerus with secondary posttraumatic degenerative changes of the acromioclavicular and glenohumeral joints. No dislocation. SOFT TISSUES: Unremarkable. RAD/Shoulder min 2 Views IMPRESSION: Healed fracture deformity of the proximal humerus with secondary posttraumatic degenerative changes of the acromioclavicular and glenohumeral joints. [facility] CC: Dr. Ramón Couletr MD; Dr. Chris Martel MD Care Management Coordinator: Signed Normal [facility] Internal Medicine Office Vis itoderek 09-19-2024 Internal Medicine Office Visit [facility] [address] [place] [address] [place] [address] OFFICE VISIT Date of Service: 09/20/24 MR#: [id number] Acct: [id number] Name: CAROLYN CINTRON Rep #: [id number] : 1945 Provider: Dr. Ramón alonso MD Age/Sex: 78/F Location: [facility] [place] [facility] Status: Signed Intake Vital Signs 07/15/24 12:54 09/20/24 13:31 Height 5 ft 3 in 5 ft 3 in Weight: 186 lb BMI 32.9 BP 136/66 H Blood Pressure Location Lt brachial Position Sitting Respiration 20 H Pulse 69 Pulse Source Monitor Temp 98.2 F Temp Source Temporal Pulse Oximetry (%) 98 Oxygen Delivery Method room air Intake Visit Reasons: DISCUSS BONE DENSITY Is patient in pain?: Yes (5 lower back ) Allergies Sulfa (Sulfonamide Antibiotics) Adverse Reaction (Severe, Verified 09/20/24 13:27) Upset Stomach Penicillins Adverse Reaction (Intermediate, Verified 09/20/24 13:27) Diarrhea cephalexin (From Keflex) Adverse Reaction (Verified 09/20/24 13:27) Nausea/Vom/Diarrhea Medications ???Medication ???Instructions ???Recorded ???Confirmed ???Type insulin syringe-needle U-100 0.3 #350 ea 07/17/17 09/20/24 Rx mL 31 gauge x 5/16 (BD Insulin Syringe Ultra-Fine) pen needle, diabetic 32 gauge x #350 ea 02/19/18 09/20/24 Rx 5/32 (BD Ultra-Fine Christy Pen Needle) cholecalciferol (vitamin D3) 25 1,000 unit PO DAILY 06/23/1809/20 History mcg (1,000 unit) capsule aspirin 81 mg tablet,delayed 81 mg PO DAILY 07/24/20 09/20/24 H istory release mecobalamin (vitamin B12) 1,000 1,000 mcg PO DAILY 07/24/20 History mcg chewable tablet blood sugar diagnostic #100 ea 12/18/20 09/20/24 Rx icosapent ethyl 1 gram capsule 2 g (2 x 1 gram) PO BID #120 caps 11/05/21 09/20/24 Rx (Vascepa) omega-3 fatty acids 1,000 mg 1,000 mg PO BID 01/23/23 09/20/24 History capsule polyethylene glycol 3350 17 4 g PO DAILY PRN 01/23/23 09/20/24 History gram/dose oral powder (Miralax) tramadol 25 mg tablet 25 mg PO BID PRN 09/01/23 09/20/24 History flash glucose sensor (FreeStyle #2 ea 10/02/23 09/20/24 Rx Nomi 2 Sensor kit) furosemide 20 mg tablet 20 mg PO QDAY #90 tabs 10/13/23 Rx metoprolol succinate 50 mg 25 mg (1/2 x 50 mg) PO BID #180 09/20/24 Rx tablet,extended release 24 hr tabs Novolog FlexPen U-100 Insulin 100 40 unit (0.4 mL) subcut TID #48 m L 01/01/24 09/20/24 Rx unit/mL (3 mL) subcutaneous (insulin aspart U-100) fluticasone propionate 50 1 spray intranasal DAILY PRN 12/3109/20/24 History mcg/actuation nasal spray,suspension lisinopril 10 mg tablet 10 mg PO DAILY #90 tabs 01/23/24 0 09/20/24 Rx insulin degludec 200 unit/mL (3 55 unit subcut QHS 02/20/24 History mL) subcutaneous pen (Tresiba FlexTouch U-200 insulin) blood sugar diagnostic (OneTouch #100 ea 04/09/24 09/20/24 Rx Ultra Test strips) potassium chloride 20 mEq 20 meq PO QDAY #90 tabs 04/09/24 0 09/20/24 Rx tablet,extended release(part/cryst) (Klor-Con M) allopurinol 300 mg tablet 300 mg PO DAILY #90 tabs 04/14/24 09/20/24 Rx levothyroxine 112 mcg tablet 112 mcg PO DAILY #90 tabs 04/14/24 09/20/24 Rx rosuvastatin 20 mg tablet 20 mg PO QDAY #90 tabs 04/14/24 Rx trazodone 50 mg tablet 50 mg PO QHS PRN insomnia #90 tabs 04/14/24 09/20/24 Rx Jardiance 25 mg tablet 25 mg PO QAM #90 tabs 05/13/24 Rx (empagliflozin) blood-glucose meter,continuous #1 ea 05/13/24 09/20/24 Rx (FreeStyle Nomi 3 [place]) blood-glucose sensor (FreeStyle #6 ea 05/13/24 09/20/24 Rx Nomi 3 Plus Sensor device) pen needle, diabetic 32 gauge x #150 ea 06/14/24 09/20/24 Rx 5/32 (BD Ultra-Fine Christy Pen Needle) montelukast 10 mg tablet 10 mg PO DAILY #90 tabs 07/20/24 0 09/20/24 Rx loratadine 10 mg tablet 10 mg PO DAILY PRN for allergies 0 09/20/24 09/20/24 Rx #90 TABLETS Have you fallen in the past year?: No Nurse's Note: pt reports that she stopped: alendronate (sick stomach), fenofibrate (joint pain), probiotic capsule pt reports that she has a dull ache in her right arm ever since breaking it a year ago, reports tingling/numbness in fingers ever since [facility] Medical History Osteopenia determined by x-ray Bilateral pseudophakia Amblyopia of left eye Dry eye syndrome of bilateral lacrimal glands Acute allergic conjunctivitis of both eyes Hypertriglyceridemia Encounter for long-term (current) insulin use Shingles Thyroid disease Skin cancer High cholesterol Gout Diabetes type 2, controlled Back problem Seasonal allergies Surgical History Status post Mohs surgery History of knee replacement History of carpal tunnel release (more content not included)... Normal [facility] Office Visiton 09-16-2024 Follow-up visit [id number] Carolyn Cintron 1945 F Date Provider Department Center 09/16/2024 [id number] None No family history on file Level of Service:29660 [place] OFFICE/OUTPATIENT ESTABLISHED LOW [facility] 20 MIN Reason for Visit and Comments: Post-op [483] - R retrograde femoral nail Normal [facility] Progress Noteon 09-16-2024 Progress Note Subjective: Carolyn is approximatley 3 months post op from retrograde right femoral nail for extra-articular distal femur fracture. Overall pain is mild. Knee pain is mild. She denies new numbness or tingling since surgery. She has notes increased right shoulder pain since her fall. She does have a history of fracture but states her arm moved reasonably well despite PT working on it, this has not improved and is persistently painful. She also notes some numbness and altered sensation in the right ring and small fingers. Review of Systems Objective: Ht 5' 2.5 (1.588 m) Wt 189 lb (85.7 kg) BMI 34.02 kg/m? Knee ROM is basically full and nonpainful. Shoulder is a very poor active forward flexion with poor cuff strength. She has altered sensation in the small and ring fingers subjectively. No motor dysfunction of the ulnar nerve. No clawing. XRAYS: 2v right femur show the nail remains in good position. The fracture is well-aligned and remains unchanged from prior films. The fracture is showing appropriate progressive callus formation and fracture line consolidation. 2 views right humerus show a old healed proximal humerus fracture. Assessment 1. Closed fracture of distal end of right femur, unspecified fracture morphology, initial encounter ([facility]) 2. Right arm pain 3. Ulnar neuritis, right Plan Orders Placed This Encounter Procedures XR humerus right Her femur is healed and doing well. I am concerned she may have a rotator cuff tear and she seems to be having some ulnar neuritis/cubital tunnel syndrome. I discussed referral to hand surgery appear an MRI but she is from far away and wants to discuss this with her PCP to see if there orthopedic surgeons close to home that she can see for these other issues. She will call and let us know if she would like to have the MRI done or see one of our partners regarding her ulnar nerve. Follow up if symptoms worsen or fail to improve.. For any future visits we will obtain 2v femur. Electronically signed by Mika Uribe M.D. 09/16/2024 at 1:42 PM. Normal [facility] XR HUMERUS RIGHTon XR HUMERUS RIGHT 2 views right humeru s show a old healed proximal humerus fracture. Normal [facility] XR Humerus - right Viewson 0 09-16-2024 2 views right humeru s show a old healed proximal humerus fracture. [facility] Radiology Study observation (narrative) [facility] Albumin to globulin ratioOrd ered By: Yariel Florez on 07-15-2024 Albumin/Globulin [Mass ratio] 0.9 {ratio} 0.9-2.4 [facility] Basic Metabolic Profile (BMP )on 07-15-2024 BUN Normal 7-18 [facility] Comment on above: Result Comment: DR. FLOREZ ORDERED CMP Performed By: #### L 500.2500 ####[facility] [address] [facility] [place], [address] BUN/CRE Normal 10-20 [facility] Comment on above: Result Comment: DR. FLOREZ ORDERED CMP Performed By: #### L 500.2500 ####[facility] [address] [place], [address] CA,Total Normal 8.5-10.1 [facility] Comment on above: Result Comment: DR. FLOREZ ORDERED CMP Performed By: #### L 500.2500 ####[facility] [address] [place], [address] CL Normal 98-107 [facility] Comment on above: Result Comment: DR. FLOREZ ORDERED CMP Performed By: #### L 500.2500 ####[facility] [address] [place], [address] CO2 Normal 21.0-32.0 [facility] Comment on above: Result Comment: DR. FLOREZ ORDERED CMP Performed By: #### L 500.2500 ####[facility] [address] [place], [address] CREAT,SERUM Normal 0.55-1.02 [facility] Comment on above: Result Comment: DR. FLOREZ ORDERED CMP Performed By: #### L 500.2500 ####[facility] [address] [place], [address] EST GFR Normal >60 [facility] Comment on above: Result Comment: DR. FLOREZ ORDERED CMP Performed By: #### L 500.2500 ####[facility] [address] [place], [address] EST GFR - AA Normal >60 [facility] Comment on above: Result Comment: DR. FLOREZ ORDERED CMP Performed By: #### L 500.2500 ####[facility] [address] [place], [address] GAP Normal 5-15 [facility] Comment on above: Result Comment: DR. FLOREZ ORDERED CMP Performed By: #### L 500.2500 ####[facility] [address], [address] GLU Normal 74-106 [facility] Comment on above: Result Comment: DR. FLOREZ ORDERED CMP Performed By: #### L 500.2500 ####[facility] [address] [place], [address] Potassium Normal 3.5-5.1 [facility] Comment on above: Result Comment: DR. FLOREZ ORDERED CMP Performed By: #### L 500.2500 ####[facility] [address] [place], [address] Basic Metabolic Profile (BMP) Normal 136-145 [facility] Comment on above: Result Comment: DR. FLOREZ ORDERED CMP Performed By: #### L 500.2500 ####[facility] [address] [place], [address] Bilirubin, totalOrdered By: Yariel Florez on 07-15-2024 Bilirubin [Mass/Vol] 0.30 mg/dL 0.20-1.00 [facility] Comment on above: For patients on eltr ombopag therapy, use of Dimension Lagrange TBIL is not recommended. Blood urea nitrogen (BUN)/cr eatinine ratioOrdered By: Yariel Florez on 07-15-2024 Urea nitrogen/Creatinine [Mass ratio] 21.9 mg/mg High 10-20 [facility] Carbon dioxide measurementOr dered By: Yariel Florez on 07-15-2024 CO2 [Moles/Vol] 23.0 mmol/L 21.0-32.0 [facility] Chloride measurementOrdered By: Yariel Florez on 07-15-2024 Chloride [Moles/Vol] 108 mmol/L High 98-107 [facility] Comprehensive Metabolic Prof ilon 07-15-2024 Albumin [Mass/Vol] 3.7 g/dL Normal 3.2-5.0 [facility] Comment on above: Order Comment: DR. Froilan VALDES ORDERED BMPDR. FLOREZ ORDERED CMP Performed By: #### L 500.4050 ####[facility] [address] [place], [address] Albumin/Globulin [Mass ratio] 0.9 {ratio} Normal 0.9-2.4 [facility] Comment on above: Order Comment: DR. Froilan VALDES ORDERED BMPDR. FLOREZ ORDERED CMP Performed By: #### L 500.4050 ####[facility] [address] [place], [address] ALK P 149 U/L High 45-117 [facility] Comment on above: Order Comment: DR. Froilan VALDES ORDERED BMPDR. FLOREZ ORDERED CMP Performed By: #### L 500.4050 ####[facility] [address] [place], [address] ALT [Catalytic activity/Vol] 21 U/L Normal 13-56 [facility] Comment on above: Order Comment: DR. Froilan VALDES ORDERED BMPDR. FLOREZ ORDERED CMP Performed By: #### L 500.4050 ####[facility] [address], [address] AST [Catalytic activity/Vol] 24 U/L Normal 15-37 [facility] Comment on above: Order Comment: DR. Froilan VALDES ORDERED BMPDR. FLOREZ ORDERED CMP Performed By: #### L 500.4050 ####[facility] [address] [place], [address] Bilirubin [Mass/Vol] 0.30 mg/dL Normal 0.20-1.00 [facility] Comment on above: Order Comment: DR. Froilan VALDES ORDERED BMPDR. FLOREZ ORDERED CMP Result Comment: For patients on eltrombopag therapy, use of Dimension Lagrange TBIL is not recommended. Performed By: #### L 500.4050 ####[facility] [address] [place], [address] BUN/CRE 21.9 RATIO High 10-20 [facility] Comment on above: Order Comment: DR. Froilan VALDES ORDERED BMPDR. FLOREZ ORDERED CMP Performed By: #### L 500.4050 ####[facility] [address] [place], [address] CA,Total 9.9 mg/dL Normal 8.5-10.1 [facility] Comment on above: Order Comment: DR. Froilan VALDES ORDERED BMPDR. FLOREZ ORDERED CMP Performed By: #### L 500.4050 ####[facility] [address] [place], [address] Chloride [Moles/Vol] 108 mmol/L High 98-107 [facility] Comment on above: Order Comment: DR. Froilan VALDES ORDERED BMPDR. FLOREZ ORDERED CMP Performed By: #### L 500.4050 ####[facility] [address] [place], [address] CO2 [Moles/Vol] 23.0 mmol/L Normal 21.0-32.0 [facility] Comment on above: Order Comment: DR. Froilan VALDES ORDERED BMPDR. FLOREZ ORDERED CMP Performed By: #### L 500.4050 ####[facility] [address] [place], [address] Creatinine [Mass/Vol] 1.78 mg/dL High 0.55-1.02 [facility] Comment on above: Order Comment: DR. Froilan VALDES ORDERED BMPDR. FLOREZ ORDERED CMP Result Comment: The validity of the calculated GFR GFRAA in patients over 70 years has not been determined. Clinical correlation is essential. Performed By: #### L 500.4050 ####[facility] [address] [place], [address] EST GFR - AA 35 mL/min Low >60 [facility] Comment on above: Order Comment: DR. Froilan VALDES ORDERED BMPDR. FLOREZ ORDERED CMP Result Comment: Afri can Finnish GFR Calc Performed By: #### L 500.4050 ####[facility] [address] [place], [address] GAP 6 Normal 5-15 [facility] Comment on above: Order Comment: DR. Froilan VALDES ORDERED BMPDR. FLOREZ ORDERED CMP Performed By: #### L 500.4050 ####[facility] [address] [place], [address] GFR/1.73 sq M.predicted among non-blacks MDRD (S/P/Bld) [Vol rate/Area] 29 mL/min/{1.73_m2} Low >60 [facility] Comment on above: Order Comment: DR. Froilan VALDES ORDERED BMPDR. FLOREZ ORDERED CMP Result Comment: Non- GFR Calc Performed By: #### L 500.4050 ####[facility] [address] [place], [address] Globulin (S) [Mass/Vol] 4.1 g/dL Normal 2.2-4.2 [facility] Comment on above: Order Comment: DR. Froilan VALDES ORDERED BMPDR. FLOREZ ORDERED CMP Performed By: #### L 500.4050 ####[facility] [address] [place], [address] Glucose [Mass/Vol] 76 mg/dL Normal 74-106 [facility] Comment on above: Order Comment: DR. Froilan VALDES ORDERED BMPDR. FLOREZ ORDERED CMP Performed By: #### L 500.4050 ####[facility] [address], [address] Potassium [Moles/Vol] 4.4 mmol/L Normal 3.5-5.1 [facility] Comment on above: Order Comment: DR. Froilan VALDES ORDERED BMPDR. FLOREZ ORDERED CMP Performed By: #### L 500.4050 ####[facility] [address] [place], [address] Sodium [Moles/Vol] 137 mmol/L Normal 136-145 [facility] Comment on above: Order Comment: DR. Froilan VALDES ORDERED BMPDR. FLOREZ ORDERED CMP Performed By: #### L 500.4050 ####[facility] [address] [place], [address] T PROT 7.8 g/dL Normal 6.4-8.2 [facility] Comment on above: Order Comment: DR. Froilan VALDES ORDERED BMPDR. FLOREZ ORDERED CMP Performed By: #### L 500.4050 ####[facility] [address] [place], [address] Urea nitrogen [Mass/Vol] 39 mg/dL High 7-18 [facility] Comment on above: Order Comment: DR. Froilan VALDES ORDERED BMPDR. FLOREZ ORDERED CMP Performed By: #### L 500.4050 ####[facility] [address] [place], [address] Estimated glomerular filtrat ion rate (GFR) AmericanOrdered By: Yariel Florez on 07-15-2024 Estimated GFR (MDRD) Amer 35 mL/min Low >60 [facility] Comment on above: GFR Calc Glomerular filtration rate ( GFR) estimationOrdered By: Yariel Florez on 07-15-2024 Estimated GFR (MDRD) Non-Af Amer 29 mL/min Low >60 [facility] Comment on above: Non- GFR Calc Glucose measurementOrdered B y: Yariel Florez on 07-15-2024 Glucose [Mass/Vol] 76 mg/dL 74-106 [facility] Laboratory - Chemistry and C hemistry - challengeOrdered By: Yariel Florez on 07-15-2024 AST [Catalytic activity/Vol] 24 U/L 15-37 [facility] Potassium measurementOrdered By: Yariel Florez on 07-15-2024 Potassium [Moles/Vol] 4.4 mmol/L 3.5-5.1 [facility] Serum anion gap measurementO rdered By: Yariel Florez on 07-15-2024 Anion gap [Moles/Vol] 6 mmol/L 5-15 [facility] Serum globulin measurementOr dered By: Yariel Florez on 07-15-2024 Globulin (S) [Mass/Vol] 4.1 g/dL 2.2-4.2 [facility] Serum or plasma alanine flowers otransferase (ALT) measurementOrdered By: Yariel Florez on 07-15-2024 ALT [Catalytic activity/Vol] 21 U/L 13-56 [facility] Serum or plasma albumin fallon urement (mass/volume)Ordered By: Yariel Florez on 07-15-2024 Albumin [Mass/Vol] 3.7 g/dL 3.2-5.0 [facility] Serum or plasma alkaline aye sphatase measurementOrdered By: Yariel Florez on 07-15-2024 ALP [Catalytic activity/Vol] 149 U/L High 45-117 [facility] Serum or plasma calcium fallon urement (mass/volume)Ordered By: Yariel Florez on 07-15-2024 Calcium [Mass/Vol] 9.9 mg/dL 8.5-10.1 [facility] Serum or plasma creatinine m easurement (mass/volume)Ordered By: Yariel Florez on 07-15-2024 Creatinine [Mass/Vol] 1.78 mg/dL High 0.55-1.02 [facility] Comment on above: The validity of the calculated GFR & GFRAA in patients over 70 years has not been determined. Clinical correlation is essential. Serum or plasma urea nitroge n measurement (mass/volume)Ordered By: Yariel Florez on 07-15-2024 Urea nitrogen [Mass/Vol] 39 mg/dL High 7-18 [facility] Sodium levelOrdered By: Yariel Florez on 07-15-2024 Sodium [Moles/Vol] 137 mmol/L 136-145 [facility] Total proteinOrdered By: Juan Florez on 07-15-2024 Protein [Mass/Vol] 7.8 g/dL 6.4-8.2 [facility] Internal Medicine Office Vis itoderek 07-14-2024 Internal Medicine Office Visit [facility] [place] [address] [place] [address] OFFICE VISIT Date of Service: 07/15/24 MR#: [id number] Acct: [id number] Name: CAROLYN CINTRON Rep #: [id number] : 1945 Provider: Dr. 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 Accompanied by: Is patient in pain?: Yes (right leg) Pain scale (1-10): 4 Allergies Sulfa (Sulfonamide Antibiotics) Adverse Reaction (Severe, Verified 07/15/24 12:45) Upset Stomach Penicillins Adverse Reaction (Intermediate, Verified 07/15/24 12:45) Diarrhea cephalexin (From Keflex) Adverse Reaction (Verified 07/15/24 12:45) Nausea/Vom/Diarrhea Medications ???Medication ???Instructions ???Recorded ???Confirmed ???Type insulin syringe-needle U-100 0.3 #350 ea 07/17/17 07/15/24 Rx mL 31 gauge x 5/16 (BD Insulin Syringe Ultra-Fine) pen needle, diabetic 32 gauge x #350 ea 02/19/18 07/15/24 Rx 5/32 (BD Ultra-Fine Christy Pen Needle) cholecalciferol (vitamin D3) 25 1,000 unit PO DAILY 06/23/18 07/15/24 History mcg (1,000 unit) capsule aspirin 81 mg tablet,delayed 81 mg PO DAILY 07/24/20 07/15/24 History release mecobalamin (vitamin B12) 1,000 1,000 mcg PO DAILY 07/24/20 07/15/24 History mcg chewable tablet blood sugar diagnostic #100 ea 12/18/20 07/15/24 Rx icosapent ethyl 1 gram capsule 2 g (2 x 1 gram) PO BID #120 caps 11/05/21 07/15/24 Rx (Vascepa) omega-3 fatty acids 1,000 mg 1,000 mg PO BID 01/23/23 07/15/24 History capsule polyethylene glycol 3350 17 4 g PO DAILY PRN 01/23/23 07/15/24 History gram/dose oral powder (Miralax) tramadol 25 mg tablet 25 mg PO BID PRN 09/01/23 07/15/24 History flash glucose sensor (FreeStyle #2 ea 10/02/23 07/15/24 Rx Nomi 2 Sensor kit) furosemide 20 mg tablet 20 mg PO QDAY #90 tabs 10/13/23 07/15/24 Rx metoprolol succinate 50 mg 25 mg (1/2 x 50 mg) PO BID #180 10/13/23 07/15/24 Rx tablet,extended release 24 hr tabs Novolog FlexPen U-100 Insulin 100 40 unit (0.4 mL) subcut TID #48 mL 01/01/24 07/15/24 Rx unit/mL (3 mL) subcutaneous (insulin aspart U-100) fluticasone propionate 50 1 spray intranasal DAILY PRN 01/01/24 07/15/24 History mcg/actuation nasal spray,suspension lisinopril 10 mg tablet 10 mg PO DAILY #90 tabs 01/23/24 07/15/24 Rx insulin degludec 200 unit/mL (3 55 unit subcut QHS 02/20/24 07/15/24 History mL) subcutaneous pen (Tresiba FlexTouch U-200 insulin) montelukast 10 mg tablet 10 mg PO DAILY #90 tabs 04/05/24 07/15/24 Rx blood sugar diagnostic (OneTouch #100 ea 04/09/24 07/15/24 Rx Ultra Test strips) loratadine 10 mg tablet 10 mg PO DAILY PRN for allergies 04/09/24 07/15/24 Rx #90 TABLETS potassium chloride 20 mEq 20 meq PO QDAY #90 tabs 04/09/24 07/15/24 Rx tablet,extended release(part/cryst) (Klor-Con M) Saccharomyces boulardii 250 mg 250 mg PO BID 04/14/24 07/15/24 History capsule (Florastor) allopurinol 300 mg tablet 300 mg PO DAILY #90 tabs 04/14/24 07/15/24 Rx fenofibrate micronized 134 mg 134 mg PO DAILY #90 caps 04/14/24 07/15/24 Rx capsule levothyroxine 112 mcg tablet 112 mcg PO DAILY #90 tabs 04/14/24 07/15/24 Rx rosuvastatin 20 mg tablet 20 mg PO QDAY #90 tabs 04/14/24 07/15/24 Rx trazodone 50 mg tablet 50 mg PO QHS PRN insomnia #90 tabs 04/14/24 07/15/24 Rx Jardiance 25 mg tablet 25 mg PO QAM #90 tabs 05/13/24 07/15/24 Rx (empagliflozin) blood-glucose meter,continuous #1 ea 05/13/24 07/15/24 Rx (FreeStyle Nomi 3 [place]) blood-glucose sensor (FreeStyle #6 ea 05/13/24 07/15/24 Rx Nomi 3 Plus Sensor device) pen needle, diabetic 32 gauge x #150 ea 06/14/24 07/15/24 Rx 5/32 (BD Ultra-Fine Christy Pen Needle) pantoprazole 40 mg tablet,delayed 40 mg PO QDAY #90 tabs 07/15/24 07/15/24 Rx release Have you fallen in the past year?: No [facility] Medical History Osteopenia determined by x-ray Bilateral pseudophakia Amblyopia of left eye Dry eye syndrome of bilateral lacrimal glands Acute allergic conjunctivitis of both eyes Hypertriglyceridemia Encounter for long-term (current) insulin use Shingles Thyroid disease Skin cancer High cholesterol Gout Diabetes type 2, controlled Back problem Seasonal allergies Surgical History Status post Mohs surg (more content not included)... Normal [facility] Office Visiton 07-13-2024 Follow-up visit [id number] Carolyn Cintron 1945 F Date Provider Department Center 07/13/2024 [id number] URIBE [facility] OR None No family history on file Level of Service:22156 [place] POSTOP FOLLOW UP VISIT RELATED TO ORIGINAL PX Reason for Visit and Comments: Injury [[id number]] Normal [facility] Progress Noteon 07-13-2024 Progress Note Subjective: Carolyn is approximately 3 weeks post op from IMN right femur fracture. Overall pain is mild. Knee pain is mild. She denies new numbness or tingling since surgery. She states she puts full weight on her leg with minimal difficulty. Review of Systems Objective: Ht 5' 2.5 (1.588 m) Wt 189 lb (85.7 kg) BMI 34.02 kg/m? All incisions are healing appropriately. Knee ROM shows flexion is 100 and extension is 10. Swelling: moderate. Sensation normal to all distal dermatomes. XRAYS: 2v right femur show the nail remains in good position. The fracture is well-aligned and remains unchanged from immediate post-op films. Early callus is already seen. Assessment 1. Closed fracture of distal end of right femur, unspecified fracture morphology, initial encounter ([facility]) Plan No orders of the defined types were placed in this encounter. Carolyn will remain WBAT and focus on aggressive ROM of hip and knee and edema control. I'll see her back in 2 months with 2v femur. Electronically signed by Mika Uribe M.D. 07/13/2024 at 12:35 PM. [facility] XR FEMUR 2+ VW RIGHTon 07-13 XR FEMUR 2+ VW RIGHT 2v right femur show the nail remains in good position. The fracture is well-aligned and remains unchanged from immediate post-op films. Early callus is already seen. Normal [facility] [id number] 07-12-2024 [id number] Patient Choice Patient Name: CAROLYN CINTRON Date of : 1945 Normal [facility] 36on 06-24-2024 36 Name of caller: Duane ryan/ [facility] Contact phone number: [phone] Relationship to Patient: Home Care Provider: Dr. Uribe Practice: Ortho Chief Complaint/Reason for Call: They received referral for home care, patient is already using a different company. FYI Best time of day caller can be reached: any Patient advised that office/PCP has 24-48 business hours to return their call: N/A [facility] 30on 06-21-2024 30 Problem: Pain - Adul t Goal: Verbalizes/displays adequate comfort level or baseline comfort level Outcome: Progressing Problem: Safety - Adult Goal: Free from fall injury Outcome: Progressing Problem: Discharge Planning Goal: Discharge to home or other facility with appropriate resources Outcome: Progressing Problem: Chronic Conditions and Co-morbidities Goal: Patient's chronic conditions and co-morbidity symptoms are monitored and maintained or improved Outcome: Progressing Problem: Musculoskeletal - Adult Goal: Return mobility to safest level of function Outcome: Progressing Goal: Maintain proper alignment of affected body part Outcome: Progressing Goal: Return ADL status to a safe level of function Outcome: Progressing [facility] [id number] 06-21-2024 [id number] Spoke to [facility] . They are able to accept patient for home PT--agency states they called and spoke with patient, explained that she may not get 3 times a week but they would try if the PT deemed necessary. Patient agreeable to go with this agency. [facility] order and updated PT notes sent to agency via careCoraid. Agency states they will start her services on Friday of this week. [facility] [phone] BSC ordered per PT request. [facility] notified of order and discharge order in. [facility] [phone] [facility] is able to accept patient for home PT. Spoke with patient to update her on this and she states she only is agreeable to go with this agency if they will come work with her AT LEAST 3 days a week. [facility] explained to patient that it is not typical for even 3 days a week for home care to be seen, and her visits are usually determined by her evaluation by the PT that sees her. Pt states her sister called [facility] and they state they are able to accommodate 3 or more days a week. Referral has already been sent to this agency with no response via careport. [facility] placed phone call to [facility], spoke with ken, who states they are typically not able to see patients 3 or more days a week either and visits are also determined by the PT's evaluation. [facility] asked that agency review her referral and requested a callback with ability to accept patient or not. Will update patient with response. [facility] [id number] 06-21-2024 [id number] Next Site of Care Admission Date: 06/16/2024 11:08 PM Patient Name: CAROLYN CINTRON Location: [address] [id number] A Date of : 1945 - Placement Information - Referral Type:Home Health Care Services - New Referral ID:[id number] Provider Name:[facility] Address 1:[facility] George Chong Address 2: City:[place] Selection Factors:Patient/Family Choice State:[place] Normal [facility] Laboratory - Chemistry and C hemistry - challengeon 06-21-2024 Glucose [Mass/Vol] 228 mg/dL High 70 - 100 mg/dL [facility] Glucose [Mass/Vol] 170 mg/dL High 70 - 100 mg/dL [facility] No Panel Informationon 06-21 Interpretation and review of laboratory results Abnormal [facility] Performed by: [facility], [address] [place] [id number] CLIA ID: [id number] [facility] Interpretation and review of laboratory results Abnormal [facility] Performed by: [facility], [address] [place] [id number] CLIA ID: [id number] [facility] Nursing Noteon 06-21-2024 Nursing Note Discharge instructio ns provided to patient and family at bedside. Medications reviewed, with lovenox teaching, and incision site care instructions provided. Verbal understanding by patient with no further questions at this time. Dressing supplies offered but patient declined stating she has some at home. IV removed and transport placed for discharge exit. [facility] Progress Noteon 06-21-2024 Progress Note Patient chart is reviewed. Currently rounding. Full note to follow. [facility] Progress Note OCCUPATIONAL THERAPY [facility] Treatment Note Name/MRN: Carolyn Cintron ([id number]) Date of : 1945 Age: 78 y.o. Room/Bed: -5108/-5108 A Discharge Recommendation: 24 hour supervision or assist, Home with Home health OT Other: TBD next level of care when in home environment Prior Level of Function Prior Level of ADL Function: Independent Prior Level of Mobility: Independent; Device: None Prior Level of Transfers: Independent Assessment Pt seen for occupational therapy treatment for discharge purposes as pt called for see-today. Pt requiring CGA-SBA for functional mobility, increased time for all tasks d/t decreased pace of movements. Pt stable while up however requiring increased time for transfers and mobility. Pt adamant about home going, recommend home OT with 24hr assist upon discharge. Pt stating she will have 24hr assist from her sister and their upon home discharge while her son is out of the house at work. Pt will need this 24hr assist upon discharge as pt unable to ambulate w/o heavy reliance on BUEs on FWW, impacting her ability to prepare meals, transport items, etc. Subjective Pt in chair upon OT arrival. Pt agreeable to OT, requesting to use the bathroom. Pt stating that [facility] has home health that is able to come out to her home, pt requesting to speak with T[facility] regarding discharge dispo Pain: RN managing pain. Medical Precautions: No active isolations Proper PPE donned/doffed in accordance with facility standards. Fall Risk: Rosales Fall Risk Score: 85 (Medium Risk) Rosales Fall Risk Score: 85 (High Risk) Precautions/Restriction s: Right LE Weight Bearing: Weight Bearing As Tolerated Family/Caregiver Present: none Objective ADLs Toileting: SBA Grooming: Contact Guard SBA for toilet transfers, CGA for standing balance at sink, heavy lean on counter top d/t pain and decreased endurance per pt report Transfers/Mobility Sit to stand: Contact Guard Stand to sit: Contact Guard Toilet: SBA Sitting balance: Independent Standing balance: SBA, Contact Guard Functional mobility: Contact Guard Heavy reliance on BUE on FWW, required standing rest break upon return from bathroom to chair d/t BUE fatigue Device(s) used: Front wheeled walker Plan Continue acute OT per plan of care. Safety/Education Safety Safety Devices in place: call light within reach, left in chair, gait belt, and no alarms engaged upon entry Restraints: No Education Education Given To: patient Education Provided: OT Role, Plan of Care, Discharge Recommendations, and Benefits of Increasing Activity Education Method: Verbal Barriers to Learning: None Education Outcome: Verbalized Understanding AM-PAC AM-PAC Inpatient Daily Activity Raw Score: 21 ADL Inpatient CMS G-Code Modifier: CJ Goals Patient Stated Goal: Home Encounter Problems Encounter Problems (Active) Balance Patient will maintain dynamic standing balance for 5 minutes with modified independence in order to demonstrate decreased risk of falling. (Progressing) Start: 06/18/24 Expected End: 07/16/24 Bathing Patient will utilize adaptive techniques to bathe body with mod I (Progressing) Start: 06/18/24 Expected End: 07/16/24 Dressings Lower Extremities Patient will dress lower body with mod I (Progressing) Start: 06/18/24 Expected End: 07/16/24 Toileting Patient will complete toileting tasks at standard toilet with modified independence. (Progressing) Start: 06/18/24 Expected End: 07/16/24 Transfers Patient will complete functional transfer with rolling walker with modified independence in order to prepare for ambulation. (Progressing) Start: 06/18/24 Expected End: 07/16/24 Therapy Time Individual Co-treatment Time In 1114 Time Out 1142 Minutes 28 Timed Code Treatment Minutes: 28 Minutes (2 self) July Lizama, KELVIN [facility] Progress Note PHYSICAL THERAPY [facility] Treatment Note Name/MRN: Carolyn Cintron ([id number]) Date of : 1945 Age: 78 y.o. Room/Bed: H-5108/H-5108 A Discharge Recommendation: Home with Home health PT, 24 hour supervision or assist Equipment Needed: Yes Other: Bedside commode Prior Level of Function Prior Level of ADL Function: Independent Prior Level of Mobility: Independent; Device: None Prior Level of Transfers: Independent Assessment Pt is making progress on 2/3 goals. Pt fatigues with ambulation and towards end limited by right knee/thigh pain along with nausea. Pt is CGA x1 to SBA x1 during session. Encouraged HEP throughout day or at home for 2x-3x per day. Given Hip fracture handout. Pt again confirmed ramp into home. Recommend FWW use at home along with home PT and 24 hour assist. Subjective Pt agreeable for therapy. Pt reports 10/10 right thigh/hip pain at end of session along with nausea. RN (ryann) notified. Medical Precautions: No active isolations Proper PPE donned/doffed in accordance with facility standards. Fall Risk: Rosales Fall Risk Score: 85 (Medium Risk) Rosales Fall Risk Score: 85 (High Risk) Precautions/Restriction s: Right LE Weight Bearing: Weight Bearing As Tolerated Overall Cognitive Status: WFL Overall Orientation Status: Oriented x4 Family/Caregiver Present: none Objective Transfers/Mobility Sit to stand: SBA, Contact Guard Stand to sit: SBA Performed 4 sit to stand transfers between each ambulation. Pt fatigues. Pt able to bring hands back to grab onto arm rest of chair prior to sitting. Pt mostly SBA x1 on 3 attempts and CGA x1 on 4th attempt Device(s) used: Front wheeled walker Ambulation Ambulation 1 Assistive device(s) used: Front wheeled walker Assist level: SBA Distance (ft): 12 feet x1, 14 feet x1, 16 feet x1, 8 feet x1 Quality of gait: uneven step length, fatigues with ambulation. Cued on endurance training with ambulation. Pt educated on improving step length Exercises Exercises Straight Leg Raise: 1 set of 10 reps RLE AAROM, LLE AROM; encouraged getting leg feed elevator worker to help with exercise Quad Sets: 1 set of 10 reps BLE supine Gluteal Sets: 1 set of 10 reps BLE supine Hip Abduction: 1 set of 10 reps RLE AAROM, LLE AROM Knee Long Arc Quad: 1 set of 10 reps BLE sitting Knee Short Arc Quad: 1 set of 10 reps BLE sitting Ankle Pumps: 1 set of 10 reps BLE sitting Plan Continue acute PT per plan of care. Safety/Education Safety Safety Devices in place: call light within reach, left in chair, gait belt, patient at risk for falls, and pt left with PRINCE renee Restraints: N/A Education Education Given To: patient Education Provided: PT Role, Plan of Care, Home Exercise Program, Transfer Training, Discharge Recommendations, and Benefits of Increasing Activity Education Method: Verbal and Printed Information Barriers to Learning: None Education Outcome: Verbalized Understanding Outcome Measures AM-PAC AM-PAC Inpatient Mobility Raw Score (No Stairs) : 15 JH-HLM JH-HLM Score: Walked 25 ft or more (i.e. walked outside of room) Goals Patient Stated Goal: to get out here and get home Encounter Problems Encounter Problems (Active) Mobility Patient will ambulate 150 feet with modified independence and least restrictive device in order to improve safety and independence with mobility. (Progressing) Start: 06/18/24 Pain - Adult Transfers Patient will perform bed mobility with independence in order to improve independence and prepare for out of bed mobility. (Not Addressed) Start: 06/18/24 Patient will complete functional transfer with least restrictive device with modified independence in order to prepare for ambulation. (Progressing) Start: 06/18/24 Therapy Time Individual Co-treatment Time In 0819 Time Out 0848 Minutes 29 Timed Code Treatment Minutes: 29 Minutes (1 unit of GT, 1 unit of FA) Ambrocio Mccord, PT [facility] 30on 06-20-2024 30 Problem: Pain - Adul t Goal: Verbalizes/displays adequate comfort level or baseline comfort level Outcome: Progressing Problem: Safety - Adult Goal: Free from fall injury Outcome: Progressing Problem: Discharge Planning Goal: Discharge to home or other facility with appropriate resources Outcome: Progressing Problem: Chronic Conditions and Co-morbidities Goal: Patient's chronic conditions and co-morbidity symptoms are monitored and maintained or improved Outcome: Progressing Problem: Musculoskeletal - Adult Goal: Return mobility to safest level of function Outcome: Progressing Goal: Maintain proper alignment of affected body part Outcome: Progressing Goal: Return ADL status to a safe level of function Outcome: Progressing [facility] Laboratory - Chemistry and C hemistry - challengeon 06-20-2024 Glucose [Mass/Vol] 169 mg/dL High 70 - 100 mg/dL [facility] Glucose [Mass/Vol] 164 mg/dL High 70 - 100 mg/dL [facility] Glucose [Mass/Vol] 225 mg/dL High 70 - 100 mg/dL [facility] Glucose [Mass/Vol] 162 mg/dL High 70 - 100 mg/dL [facility] No Panel Informationon 06-20 Interpretation and review of laboratory results Abnormal [facility] Performed by: [facility], [address] [place], [place] [id number] CLIA ID: [id number] [facility] [employer] [facility] Interpretation and review of laboratory results Abnormal [facility] Performed by: [facility], [address] [place] [address], [facility] [address] CLIA ID: [id number] [facility] Interpretation and review of laboratory results Abnormal [facility] Performed by: [facility], [address] [place] [address], [facility] [address] CLIA ID: [id number] [facility] Interpretation and review of laboratory results Abnormal [facility] Performed by: [facility], [address] [place] [address], [facility] [address] CLIA ID: [id number] [facility] [employer] [facility] Progress Noteon 06-20-2024 Progress Note PHYSICAL THERAPY [facility] Treatment Note Name/MRN: Carolyn Cintron ([id number]) Date of : 1945 Age: 78 y.o. Room[facility]: [facility] A Discharge Recommendation: Continue to assess pending progress, 24 hour supervision or assist, Home with Home health PT Equipment Needed: Yes Other: Bedside commode Prior Level of Function Prior Level of ADL Function: Independent Prior Level of Mobility: Independent; Device: None Prior Level of Transfers: Independent Assessment Progressed with gait distance this session, patient is able to ambulate with FWW and CGA. Heavy reliance on UE and step-to gait pattern, extended time and increased effort for gait. Able to perform transfers with CGA and with cues for UE placement. Reports that her will be with her for mobility and would like a bedside commode for use at home, son can assist as well when not at work. Recommend 24 hour assist and home health PT at discharge. Subjective In recliner upon arrival, agrees to participate in PT. Pain: R LE pain, worse with WB Medical Precautions: No active isolations Proper PPE donned/doffed in accordance with facility standards. Fall Risk: Rosales Fall Risk Score: 85 (Medium Risk) Rosales Fall Risk Score: 85 (High Risk) Precautions/Restriction s: Right LE Weight Bearing: Weight Bearing As Tolerated Overall Cognitive Status: WNL Overall Orientation Status: Oriented x4 Family/Caregiver Present: none Objective Transfers/Mobility Sit to stand: Contact Guard Stand to sit: Contact Guard Toilet: Contact Guard Cues for UE placement, good weight shifting and technique. No instability or LOB. Increased effort to complete. Use of grab bar in bathroom, states grab bar is currently being installed in her BR at home. Device(s) used: Front wheeled walker Ambulation Ambulation 1 Assistive device(s) used: Front wheeled walker Assist level: Contact Guard Distance (ft): 15ft, 12ft x 2, 10ft Quality of gait: antalgic, step to pattern, slow violeta, instability through all phases. Heavy reliance on UE, extended time to complete task. Frequent seated rest breaks due to pain and UE fatigue. Balance During Session: Posture: fair Sitting - Static: Contact Guard Sitting - Dynamic: Contact Guard Standing - Static: Contact Guard Standing - Dynamic: Contact Guard Standing balance with intermittent UE support, able to reach outside MARYAM and across midline with some postural sway and no LOB. Stands for 2-3 min before seated rest. Plan Continue acute PT per plan of care. Safety/Education Safety Safety Devices in place: All fall risk precautions in place, call light within reach, left in chair, and nurse notified Restraints: No Education Transfers, gait, balance Outcome Measures AM-PAC AM-PAC Inpatient Mobility Raw Score (No Stairs) : 15 JH-HLM JH-HLM Score: Walked 25 ft or more (i.e. walked outside of room) Goals Patient Stated Goal: to go home Encounter Problems Encounter Problems (Active) Mobility Patient will ambulate 150 feet with modified independence and least restrictive device in order to improve safety and independence with mobility. (Progressing) Start: 06/18/24 Pain - Adult Transfers Patient will perform bed mobility with independence in order to improve independence and prepare for out of bed mobility. (Not Addressed) Start: 06/18/24 Patient will complete functional transfer with least restrictive device with modified independence in order to prepare for ambulation. (Progressing) Start: 06/18/24 Therapy Time Individual Co-treatment Time In 1450 Time Out 1515 Minutes 25 Timed Code Treatment Minutes: 20 Minutes (Gait) Variance: 5 (bathroom) Kenya Strong PTA [facility] 30on 06-19-2024 30 Problem: Pain - Adul t Goal: Verbalizes/displays adequate comfort level or baseline comfort level Outcome: Progressing Problem: Safety - Adult Goal: Free from fall injury Outcome: Progressing Problem: Discharge Planning Goal: Discharge to home or other facility with appropriate resources Outcome: Progressing Problem: Chronic Conditions and Co-morbidities Goal: Patient's chronic conditions and co-morbidity symptoms are monitored and maintained or improved Outcome: Progressing Problem: Musculoskeletal - Adult Goal: Return mobility to safest level of function Outcome: Progressing Goal: Maintain proper alignment of affected body part Outcome: Progressing Goal: Return ADL status to a safe level of function Outcome: Progressing Normal [facility] CBC (HEMOGRAM)on 06-19-2024 Erythrocyte distribution width (RBC) [Ratio] 14.6 % Normal 11.5-15.0 [facility] Comment on above: Performed By: #### L [id number] #### [employer] Operator: NED WILKINS ([id number]) [facility]) [address] [place] [address] Hematocrit (Bld) [Volume fraction] 28.1 % Low 35.0-47.0 [facility] Comment on above: Performed By: #### L [id number] #### [employer] Operator: NED WILKINS ([id number]) [facility]) [address] [place] [address] Hemoglobin (Bld) [Mass/Vol] 9.0 g/dL Low 11.7-16.0 [facility] Comment on above: Performed By: #### L [id number] #### [employer] Operator: NED WILKINS ([id number]) [facility] ([facility]) [address] [place] [address] MCH (RBC) [Entitic mass] 31.8 pg Normal 26.0-34.0 [facility] Comment on above: Performed By: #### L [id number] #### [employer] Operator: NED WILKINS ([id number]) [facility]) [address] [place] [address] MCHC 32.0 % Normal 30.5-36.0 [facility] Comment on above: Performed By: #### L [id number] #### [employer] Operator: NED WILKINS ([id number]) [facility] ([facility]) [address] [place] [address] MCV (RBC) [Entitic vol] 99.3 fL High 77.0-99.0 [facility] Comment on above: Performed By: #### L [id number] #### [employer] Operator: NED WILKINS ([id number]) [facility] ([facility]) [address] [place] [address] Platelet mean volume (Bld) [Entitic vol] 9.3 fL Normal 9.0-12.7 [facility] Comment on above: Performed By: #### L [id number] #### [employer] Operator: NED WILKINS ([id number]) [facility] ([facility]) [address] [place] [address] Platelets (Bld) [#/Vol] 179 10*3/uL Normal 140-440 [facility] Comment on above: Performed By: #### L [id number] #### [employer] Operator: NED WILKINS ([id number]) [facility] ([facility]) [address] [place] [address] RBC (Bld) [#/Vol] 2.83 10*6/uL Low 3.80-5.20 [facility] Comment on above: Performed By: #### L [id number] #### [employer] Operator: NED WILKINS ([id number]) [facility] ([facility]) [address] [place] [address] WBC (Bld) [#/Vol] 9.9 10*3/uL Normal 3.6-10.7 [facility] Comment on above: Performed By: #### L [id number] #### [employer] Operator: NED WILKINS ([id number]) [facility] ([facility]) [address] [place] [address] CBC panel Auto (Bld)on 06-19 Erythrocyte distribution width (RBC) [Ratio] 14.6 % 11.5 - 15.0 % [facility] Hematocrit (Bld) [Volume fraction] 28.1 % Low 35.0 - 47.0 % [facility] Hemoglobin (Bld) [Mass/Vol] 9 g/dL Low 11.7 - 16.0 g/dL [facility] Interpretation and review of laboratory results Abnormal [facility] MCH (RBC) [Entitic mass] 31.8 pg 26.0 - 34.0 pg [facility] MCHC (RBC) [Mass/Vol] 32 % 30.5 - 36.0 % [facility] MCV (RBC) [Entitic vol] 99.3 fL High 77.0 - 99.0 fL [facility] Platelet mean volume (Bld) [Entitic vol] 9.3 fL 9.0 - 12.7 fL [facility] Platelets (Bld) [#/Vol] 179 10*3/uL 140 - 440 10*3/uL [facility] RBC (Bld) [#/Vol] 2.83 10*6/uL Low 3.80 - 5.20 10*6/uL [facility] WBC (Bld) [#/Vol] 9.9 10*3/uL 3.6 - 10.7 10*3/uL [facility] Laboratory - Chemistry and C hemistry - challengeon 06-19-2024 Glucose [Mass/Vol] 178 mg/dL High 70 - 100 mg/dL [facility] Glucose [Mass/Vol] 148 mg/dL High 70 - 100 mg/dL [facility] Glucose [Mass/Vol] 224 mg/dL High 70 - 100 mg/dL [facility] Glucose [Mass/Vol] 106 mg/dL High 70 - 100 mg/dL [facility] Glucose [Mass/Vol] 109 mg/dL High 70 - 100 mg/dL [facility] Glucose [Mass/Vol] 122 mg/dL High 70 - 100 mg/dL [facility] No Panel Informationon 06-19 Interpretation and review of laboratory results Abnormal [facility]formed by: [facility], [address] [place], [place] [id number] CLIA ID: [id number] [facility] Interpretation and review of laboratory results Abnormal [facility] Performed by: [facility], [address] [place] [address] CLIA ID: [id number] [facility] Interpretation and review of laboratory results Abnormal [facility] Performed by: [facility], [address] [place] [id number] CLIA ID: [id number] [facility] Interpretation and review of laboratory results Abnormal [facility] Performed by: [facility], [address] [place] [address] CLIA ID: [id number] [facility] Interpretation and review of laboratory results Abnormal [facility] Performed by: [facility], [address] [place] [address] CLIA ID: [id number] [facility] Interpretation and review of laboratory results Abnormal [facility] Performed by: [facility], [address] [place] [address] CLIA ID: [id number] [facility] 30on 06-18-2024 30 Problem: Pain - Adul t Goal: Verbalizes/displays adequate comfort level or baseline comfort level Outcome: Progressing Problem: Safety - Adult Goal: Free from fall injury Outcome: Progressing Problem: Discharge Planning Goal: Discharge to home or other facility with appropriate resources Outcome: Progressing Problem: Chronic Conditions and Co-morbidities Goal: Patient's chronic conditions and co-morbidity symptoms are monitored and maintained or improved Outcome: Progressing Problem: Musculoskeletal - Adult Goal: Return mobility to safest level of function Outcome: Progressing Goal: Maintain proper alignment of affected body part Outcome: Progressing Goal: Return ADL status to a safe level of function Outcome: Progressing Normal [facility] [id number] 06-18-2024 [id number] Educated patient on Home Care and services available. Patient is agreeable to receiving home care services at this time. Patient was given choice of home care agencies available in the area and is agreeable to having referrals made with agencies that staff the patients service location. [facility] via [facility]. Liaison to discuss available agencies to accept case with patient upon receiving responses. [facility] [id number] 06-18-2024 [id number] Care Managment Initi al Assessment Date: 06/18/2024 Patient Name: Carolyn Cintron : 1945 Patient Information Source of Information: Patient Cognition/Language: WFL - Within Functional Limits Permission given to speak with patient medical office representative/caregive r as indicated: Yes Confirmation of Payer with patient/family: Yes Payer Name: [employer] MEDICARE ADVANTAGE : No Confirmation of Primary Care Physician: Confirmed PCP Name: Ramón Coulter Seen in last 2 years?: Yes Primary Caregiver: Self If assistance needed, confirmed caregiver ready, willing and able to care for patient at discharge: Confirmed with: Living Arrangements Current Residence: House Number of Floors 1 Number of Entry Steps: (ramp) Bed/Bath Levels: Both first floor Facility: Facility Name: Plan to Return: Lives with: Spouse/significant other, Children (adult son) Support Systems: Spouse/significant other, Family members Activities of Daily Living Ambulation: Independent Bathing/Dressing: Independent Elimination/Continence/ Toileting: Independent Feeding: Independent Who Assists with Activities of Daily Living: Instrumental Activities of Daily Living Prescription Coverage: Yes Pharmacy Used: [facility] in [place] Medication Management: Independent Transportation/Shopping : Independent Transportation Mode: Car Needs Assistance with Transportation at Discharge: No Meal Preparation: Independent Laundry/Cleaning: Independent Finances/Bill Paying: Independent Communication: Independent Types of Care Services/Equipment Utilized Care Services: Dialysis Type: Durable Medical Equipment: Walker, Cane (using cane mostly) Patient's Goal/Discharge Plan Patient expects to be discharged to: home with home care Discharge Planning Actions: Continue to follow Patient's Choice Rights and [employer] and Collaborative Relationships Disclosed as Indicated for Post-Acute Care: Interdisciplinary Team Engagement: Home Health Care, PT/OT Social Work Referral for: Additional Information: Met with patient at bedside - reviewed discharge plan, introduced self and role. Patient from home independent with husb and adult son. Patient states has insurance and able to afford medications. Help available at home and family will provide transportation home. PT eval- Continue to assess pending progress, Home with Home health PT, 24 hour supervision or amanda - OT eval Long-Term Facility, Home with Home health OT, Home with assist PRN, Continue to assess pending progress -discussed with patient and prefers to go home with home care- feels husb and son able to assist as needed- HC liaison notified Plan -Home with HC when medically stable. [facility] [phone] Msg sent to therapy need PT/OT eval completed to assist with discharge planning [facility] CBC (HEMOGRAM)on 06-18-2024 Erythrocyte distribution width (RBC) [Ratio] 14.6 % Normal 11.5-15.0 [facility] Comment on above: Performed By: #### L [id number] ####[employer] Operator: NED WILKINS ([id number])[facility])[address] [place] [address] Hematocrit (Bld) [Volume fraction] 29.7 % Low 35.0-47.0 [facility] Comment on above: Performed By: #### L [id number] ####[employer] Operator: NED WILKINS ([id number])[facility])[address] [place] [address] Hemoglobin (Bld) [Mass/Vol] 9.7 g/dL Low 11.7-16.0 [facility] Comment on above: Performed By: #### L [id number] ####[employer] Operator: NED WILKINS ([id number])[facility])[address] [place] [address] MCH (RBC) [Entitic mass] 31.3 pg Normal 26.0-34.0 [facility] Comment on above: Performed By: #### L [id number] ####[employer] Operator: NED WILKINS ([id number])[facility])[address] [place] [address] MCHC 32.7 % Normal 30.5-36.0 [facility] Comment on above: Performed By: #### L [id number] ####[employer] Operator: NED WILKINS ([id number])[facility])[address] [place] [address] MCV (RBC) [Entitic vol] 95.8 fL Normal 77.0-99.0 [facility] Comment on above: Performed By: #### L [id number] ####[employer] Operator: NED WILKINS ([id number])[facility])[address] [place] [address] Platelet mean volume (Bld) [Entitic vol] 9.4 fL Normal 9.0-12.7 [facility] Comment on above: Performed By: #### L [id number] ####[employer] Operator: NED WILKINS ([id number])[facility])[address] [place] [address] Platelets (Bld) [#/Vol] 198 10*3/uL Normal 140-440 [facility] Comment on above: Performed By: #### L [id number] ####[employer] Operator: NED WILKINS ([id number])[facility])[address] [place] [address] RBC (Bld) [#/Vol] 3.10 10*6/uL Low 3.80-5.20 [facility] Comment on above: Performed By: #### L [id number] ####[employer] Operator: NED WILKINS ([id number])[facility])[address] [place] [address] WBC (Bld) [#/Vol] 8.3 10*3/uL Normal 3.6-10.7 [facility] Comment on above: Performed By: #### L [id number] ####[employer] Operator: NED WILKINS ([id number])[facility])[address] [place] [address] CBC panel Auto (Bld)on 06-18 Erythrocyte distribution width (RBC) [Ratio] 14.6 % 11.5 - 15.0 % [facility] Hematocrit (Bld) [Volume fraction] 29.7 % Low 35.0 - 47.0 % [facility] Hemoglobin (Bld) [Mass/Vol] 9.7 g/dL Low 11.7 - 16.0 g/dL [facility] Interpretation and review of laboratory results Abnormal [facility] MCH (RBC) [Entitic mass] 31.3 pg 26.0 - 34.0 pg [facility] MCHC (RBC) [Mass/Vol] 32.7 % 30.5 - 36.0 % [facility] MCV (RBC) [Entitic vol] 95.8 fL 77.0 - 99.0 fL [facility] Platelet mean volume (Bld) [Entitic vol] 9.4 fL 9.0 - 12.7 fL [facility] Platelets (Bld) [#/Vol] 198 10*3/uL 140 - 440 10*3/uL [facility] RBC (Bld) [#/Vol] 3.1 10*6/uL Low 3.80 - 5.20 10*6/uL [facility] WBC (Bld) [#/Vol] 8.3 10*3/uL 3.6 - 10.7 10*3/uL [facility] Laboratory - Chemistry and C hemistry - challengeon 06-18-2024 Glucose [Mass/Vol] 163 mg/dL High 70 - 100 mg/dL [facility] Glucose [Mass/Vol] 109 mg/dL High 70 - 100 mg/dL [facility] Glucose [Mass/Vol] 187 mg/dL High 70 - 100 mg/dL [facility] Glucose [Mass/Vol] 149 mg/dL High 70 - 100 mg/dL [facility] No Panel Informationon 06-18 Interpretation and review of laboratory results Abnormal [facility] Performed by: [facility], [address] [place] [address] CLIA ID: [id number] [facility] Interpretation and review of laboratory results Abnormal [facility] Performed by: [facility], [address] [place] [address] CLIA ID: [id number] [facility] Interpretation and review of laboratory results Abnormal [facility] Performed by: [facility], [address] [place] [address] CLIA ID: [id number] [facility] Interpretation and review of laboratory results Abnormal [facility] Performed by: [facility], [address] [place] [address] CLIA ID: [id number] [facility] Progress Noteon 06-18-2024 Progress Note Nutrition rescreen completed. Chart reviewed. Patient to be monitored and followed by the diet facility technician. DENIS Mccullough Normal [facility] 30on 06-17-2024 30 Problem: Pain - Adul t Goal: Verbalizes/displays adequate comfort level or baseline comfort level Outcome: Progressing Problem: Safety - Adult Goal: Free from fall injury Outcome: Progressing Problem: Discharge Planning Goal: Discharge to home or other facility with appropriate resources Outcome: Progressing Problem: Chronic Conditions and Co-morbidities Goal: Patient's chronic conditions and co-morbidity symptoms are monitored and maintained or improved Outcome: Progressing Problem: Musculoskeletal - Adult Goal: Return mobility to safest level of function Outcome: Progressing Goal: Maintain proper alignment of affected body part Outcome: Progressing Goal: Return ADL status to a safe level of function Outcome: Progressing Normal [facility] ABO and Rh group Confirm Nom (Bld)on 06-17-2024 ABO group Nom (Bld) A [facility] D Ag Ql (RBC) Positive [facility] BASIC METABOLIC PANELon 06-06 Anion gap [Moles/Vol] 6 mmol/L Normal 3-13 [facility] Comment on above: Performed By: #### L AB15 ####[employer] Operator: NED WILKINS ([id number])[facility] ([facility])[address] [place] [address] Calcium [Mass/Vol] 9.4 mg/dL Normal 8.8-10.0 [facility] Comment on above: Performed By: #### L AB15 ####[employer] Operator: NED WILKINS ([id number])[facility] ([facility])[address] [place] [address] [place] Chloride [Moles/Vol] 109 mmol/L High 98-107 [facility] Comment on above: Performed By: #### L AB15 ####[employer] Operator: NED WILKINS ([id number])[facility] ([facility])[address] [place] [address] [place] CO2 [Moles/Vol] 24 mmol/L Normal 23-31 [facility] Comment on above: Performed By: #### L AB15 ####[employer] Operator: NED WILKINS ([id number])[facility] ([facility])[address] [place] [address] [place] Creatinine [Mass/Vol] 1.52 mg/dL High 0.57-1.11 [facility] Comment on above: Performed By: #### L AB15 ####[employer] Operator: NED WILKINS ([id number])[facility] ([address] GLOMERULAR FILTRATION RATE ML/MIN/1.73 SQ M.PREDICTED 35.0 mL/min/1.73m*2 Low >60.0 [facility] Comment on above: Result Comment: Calc ulation based on the Chronic Kidney Disease Epidemiology Collaboration (CKD-EPI) equation refit without adjustment for race Performed By: #### L AB15 ####[employer] Operator: NED WILKINS ([id number])[facility])[address] [place] [address] Glucose [Mass/Vol] 154 mg/dL High 82-115 [facility] Comment on above: Performed By: #### L AB15 ####[employer] Operator: NED WILKINS ([id number])[address] Potassium [Moles/Vol] 4.4 mmol/L Normal 3.5-5.1 [facility] Comment on above: Result Comment: [facility] potassium values may be up to 0.5 mmol/L lower than serum values. Performed By: #### L AB15 ####[employer] Operator: NED WILKINS ([id number])[place] [address] [place] Sodium [Moles/Vol] 139 mmol/L Normal 136-145 [facility] Comment on above: Performed By: #### L AB15 ####[employer] Operator: NED WILKINS ([id number])[facility])[address] [place] [address] [place] Urea nitrogen [Mass/Vol] 29 mg/dL High 9-23 [facility] Comment on above: Performed By: #### L AB15 ####[employer] Operator: END WILKINS ([id number])[address] Anion gap [Moles/Vol] 8 mmol/L Normal 3-13 [facility] Comment on above: Performed By: #### L AB15 ####[employer] Operator: NED [id number])[facility])[address] [place] [address] Calcium [Mass/Vol] 9.5 mg/dL Normal 8.8-10.0 [facility] Comment on above: Performed By: #### L AB15 ####[employer] Operator: NED WILKINS ([id number])[facility] [place] [address] Chloride [Moles/Vol] 109 mmol/L High 98-107 [facility] Comment on above: Performed By: #### L AB15 ####[employer] Operator: NED WILKINS ([id number])[facility] ([facility])[address] [place] [address] CO2 [Moles/Vol] 23 mmol/L Normal 23-31 [facility] Comment on above: Performed By: #### L AB15 ####[employer] Operator: NED WILKINS ([id number])[facility] ([facility])[address] [place] [address] Creatinine [Mass/Vol] 1.44 mg/dL High 0.57-1.11 [facility] Comment on above: Performed By: #### L AB15 ####[employer] Operator: NED WILKINS ([id number])[facility] ([facility])[address] [place] [address] GLOMERULAR FILTRATION RATE ML/MIN/1.73 SQ M.PREDICTED 37.3 mL/min/1.73m*2 Low >60.0 [facility] Comment on above: Result Comment: Calc ulation based on the Chronic Kidney Disease Epidemiology Collaboration (CKD-EPI) equation refit without adjustment for race Performed By: #### L AB15 ####[employer] Operator: NED WILKINS ([id number])[facility] ([facility])[address] [place] [address] [place] Glucose [Mass/Vol] 165 mg/dL High 82-115 [facility] Comment on above: Performed By: #### L AB15 ####[employer] Operator: NED WILKINS ([id number])[facility] ([facility])[address] [place] [address] [place] Potassium [Moles/Vol] 4.3 mmol/L Normal 3.5-5.1 [facility] Comment on above: Result Comment: [facility] potassium values may be up to 0.5 mmol/L lower than serum values. Performed By: #### L AB15 ####[employer] Operator: NED WILKINS ([id number])[facility] ([facility])[address] [place] [address] Sodium [Moles/Vol] 140 mmol/L Normal 136-145 [facility] Comment on above: Performed By: #### L AB15 ####[employer] Operator: NED WILKINS ([id number])[facility] ([facility])[address] [place] [address] Urea nitrogen [Mass/Vol] 30 mg/dL High 9-23 [facility] Comment on above: Performed By: #### L AB15 ####[employer] Operator: NED WILKINS ([id number])[facility] ([facility])[address] [place] [address] BLOOD TYPE AND SCREEN GELon 06-17-2024 ABO GROUPING A Normal [facility] Comment on above: Performed By: #### L [id number] ####[employer] Operator: NED WILKINS ([id number])[facility] ([facility])[address] [place] [address] RH TYPE IN BLOOD Positive Normal [facility] Comment on above: Performed By: #### L AB276 ####[employer] Operator: NED WILKINS ([id number])[facility] ([facility])[address] [place] [address] Basic metabolic 1998 panelon 06-17-2024 Anion gap [Moles/Vol] 6 mmol/L 3 - 13 mmol/L [facility] Calcium [Mass/Vol] 9.4 mg/dL 8.8 - 10. 0 mg/dL [facility] Chloride [Moles/Vol] 109 mmol/L High 98 - 10 7 mmol/L [facility] CO2 [Moles/Vol] 24 mmol/L 23 - 31 mmol/L [facility] Creatinine [Mass/Vol] 1.52 mg/dL High 0.57 - 1.11 mg/dL [facility] GFR/1.73 sq M.predicted (S/P/Bld) [Vol rate/Area] 35 mL/min Low - PINF [facility] Comment on above: Calculation based on the Chronic Kidney Disease Epidemiology Collaboration (CKD-EPI) equation refit without adjustment for race Glucose [Mass/Vol] 154 mg/dL High 82 - 115 mg/dL [facility] Interpretation and review of laboratory results Abnormal [facility] Potassium [Moles/Vol] 4.4 mmol/L 3.5 - 5.1 mmol/L [facility] Comment on above: Plasma potassium anju ues may be up to 0.5 mmol/L lower than serum values. Sodium [Moles/Vol] 139 mmol/L 136 - 145 mmol/L [facility] Urea nitrogen [Mass/Vol] 29 mg/dL High 9 - 23 mg/dL [facility] Anion gap [Moles/Vol] 8 mmol/L 3 - 13 mmol/L [facility] Calcium [Mass/Vol] 9.5 mg/dL 8.8 - 10. 0 mg/dL [facility] Chloride [Moles/Vol] 109 mmol/L High 98 - 10 7 mmol/L [facility] CO2 [Moles/Vol] 23 mmol/L 23 - 31 mmol/L [facility] Creatinine [Mass/Vol] 1.44 mg/dL High 0.57 - 1.11 mg/dL [facility] GFR/1.73 sq M.predicted (S/P/Bld) [Vol rate/Area] 37.3 mL/min Low - PINF [facility] Comment on above: Calculation based on the Chronic Kidney Disease Epidemiology Collaboration (CKD-EPI) equation refit without adjustment for race Glucose [Mass/Vol] 165 mg/dL High 82 - 115 mg/dL [facility] Interpretation and review of laboratory results Abnormal [facility] Potassium [Moles/Vol] 4.3 mmol/L 3.5 - 5.1 mmol/L [facility] Comment on above: Plasma potassium anju ues may be up to 0.5 mmol/L lower than serum values. Sodium [Moles/Vol] 140 mmol/L 136 - 145 mmol/L [facility] Urea nitrogen [Mass/Vol] 30 mg/dL High 9 - 23 mg/dL [facility] Blood type and Crossmatch pa brooke (Bld)on 12-12-2024 ABO group Nom (Bld) A [facility] Blood group antibody screen GEL Ql Negative [facility] D Ag Ql (RBC) [facility] CBC W Auto Differential pane l (Bld)on 06-17-2024 Basophils (Bld) [#/Vol] 0 10*3/uL 0.0 - 0.2 10*3/uL [facility] Basophils/100 WBC (Bld) 0.4 % 0.0 - 2.0 % [facility] Eosinophils (Bld) [#/Vol] 0.2 10*3/uL 0.0 - 0.5 10*3/uL [facility] Eosinophils/100 WBC (Bld) 2.5 % 0.0 - 6.0 % [facility] Erythrocyte distribution width (RBC) [Ratio] 14.3 % 11.5 - 15.0 % [facility] Hematocrit (Bld) [Volume fraction] 31.5 % Low 35.0 - 47.0 % [facility] Hemoglobin (Bld) [Mass/Vol] 10.4 g/dL Low 11.7 - 16.0 g/dL [facility] Immature granulocytes (Bld) [#/Vol] 0 10*3/uL NINF - 0.1 10*3/uL [facility] Immature granulocytes/100 WBC (Bld) 0.3 % 0.0 - 2.0 % [facility] Interpretation and review of laboratory results Abnormal [facility] Lymphocytes (Bld) [#/Vol] 1.8 10*3/uL 1.0 - 4.3 10*3/uL [facility] Lymphocytes/100 WBC (Bld) 26.5 % 15.0 - 45.0 % [facility] MCH (RBC) [Entitic mass] 31.4 pg 26.0 - 34.0 pg [facility] MCHC (RBC) [Mass/Vol] 33 % 30.5 - 36.0 % [facility] MCV (RBC) [Entitic vol] 95.2 fL 77.0 - 99.0 fL [facility] Monocytes (Bld) [#/Vol] 0.7 10*3/uL 0.0 - 0.9 10*3/uL [facility] Monocytes/100 WBC (Bld) 10.2 % 5.0 - 13.0 % [facility] Neutrophils (Bld) [#/Vol] 4.1 10*3/uL 1.8 - 7.5 10*3/uL [facility] Neutrophils/100 WBC (Bld) 60.1 % 38.0 - 82.0 % [facility] Nucleated RBC/100 WBC (Bld) [Ratio] 0 % [facility] Platelet mean volume (Bld) [Entitic vol] 9.3 fL 9.0 - 12.7 fL [facility] Platelets (Bld) [#/Vol] 185 10*3/uL 140 - 440 10*3/uL [facility] RBC (Bld) [#/Vol] 3.31 10*6/uL Low 3.80 - 5.20 10*6/uL [facility] WBC (Bld) [#/Vol] 6.8 10*3/uL 3.6 - 10.7 10*3/uL [facility] Basophils (Bld) [#/Vol] 0 10*3/uL 0.0 - 0.2 10*3/uL [facility] Basophils/100 WBC (Bld) 0.4 % 0.0 - 2.0 % [facility] Eosinophils (Bld) [#/Vol] 0.1 10*3/uL 0.0 - 0.5 10*3/uL [facility] Eosinophils/100 WBC (Bld) 1.8 % 0.0 - 6.0 % [facility] Erythrocyte distribution width (RBC) [Ratio] 14.1 % 11.5 - 15.0 % [facility] Hematocrit (Bld) [Volume fraction] 32.7 % Low 35.0 - 47.0 % [facility] Hemoglobin (Bld) [Mass/Vol] 10.7 g/dL Low 11.7 - 16.0 g/dL [facility] Immature granulocytes (Bld) [#/Vol] 0 10*3/uL NINF - 0.1 10*3/uL [facility] Immature granulocytes/100 WBC (Bld) 0.4 % 0.0 - 2.0 % [facility] Interpretation and review of laboratory results Abnormal [facility] Lymphocytes (Bld) [#/Vol] 1.8 10*3/uL 1.0 - 4.3 10*3/uL [facility] Lymphocytes/100 WBC (Bld) 23.7 % 15.0 - 45.0 % [facility] MCH (RBC) [Entitic mass] 31.4 pg 26.0 - 34.0 pg [facility] MCHC (RBC) [Mass/Vol] 32.7 % 30.5 - 36.0 % [facility] MCV (RBC) [Entitic vol] 95.9 fL 77.0 - 99.0 fL [facility] Monocytes (Bld) [#/Vol] 0.7 10*3/uL 0.0 - 0.9 10*3/uL [facility] Monocytes/100 WBC (Bld) 9.1 % 5.0 - 13.0 % [facility] Neutrophils (Bld) [#/Vol] 4.8 10*3/uL 1.8 - 7.5 10*3/uL [facility] Neutrophils/100 WBC (Bld) 64.6 % 38.0 - 82.0 % [facility] Nucleated RBC/100 WBC (Bld) [Ratio] 0 % [facility] Platelet mean volume (Bld) [Entitic vol] 9 fL 9.0 - 12.7 fL [facility] Platelets (Bld) [#/Vol] 190 10*3/uL 140 - 440 10*3/uL [facility] RBC (Bld) [#/Vol] 3.41 10*6/uL Low 3.80 - 5.20 10*6/uL [facility] WBC (Bld) [#/Vol] 7.4 10*3/uL 3.6 - 10.7 10*3/uL [facility] CBC WITH AUTO DIFFERENTIALon 06-17-2024 Basophils (Bld) [#/Vol] 0.0 10*3/uL Normal 0.0-0.2 [facility] Comment on above: Performed By: #### L [id number] ####[employer] Operator: NED WILKINS ([id number])[address] Basophils/100 WBC (Bld) 0.4 % Normal 0.0-2.0 [facility] Comment on above: Performed By: #### L [id number] ####[employer] Operator: NED WILKINS ([id number])[address] Eosinophils (Bld) [#/Vol] 0.2 10*3/uL Normal 0.0-0.5 [facility] Comment on above: Performed By: #### L [id number] ####[employer] Operator: NDE WILKINS ([phone])[facility])[address] [place] [address] Eosinophils/100 WBC (Bld) 2.5 % Normal 0.0-6.0 [facility] Comment on above: Performed By: #### L [id number] ####[employer] Operator: NED WILKINS ([id number])[facility])[address] [place] [address] Erythrocyte distribution width (RBC) [Ratio] 14.3 % Normal 11.5-15.0 [facility] Comment on above: Performed By: #### L [id number] ####[employer] Operator: NED WILKINS ([phone])[facility])[address] [place] [address] Hematocrit (Bld) [Volume fraction] 31.5 % Low 35.0-47.0 [facility] Comment on above: Performed By: #### L [id number] ####[employer] Operator: NED WILKINS ([phone])[facility])[address] [place] [address] Hemoglobin (Bld) [Mass/Vol] 10.4 g/dL Low 11.7-16.0 [facility] Comment on above: Performed By: #### L [id number] ####[employer] Operator: NED WILKINS ([id number])[facility])[address] [place] [address] IMMATURE GRANS % 0.3 % Normal 0.0-2.0 [facility] Comment on above: Performed By: #### L [id number] ####[employer] Operator: NED WILKINS ([id number])[facility])[address] [place] [address] IMMATURE GRANS ABSOLUTE 0.0 10*3/uL Normal <0.1 [facility] Comment on above: Performed By: #### L [id number] ####[employer] Operator: NED WILKINS ([id number])[facility])[address] [place] [address] Lymphocytes (Bld) [#/Vol] 1.8 10*3/uL Normal 1.0-4.3 [facility] Comment on above: Performed By: #### L [id number] ####[employer] Operator: NED WILKINS ([id number])[facility])[address] [place] [address] Lymphocytes/100 WBC (Bld) 26.5 % Normal 15.0-45.0 [facility] Comment on above: Performed By: #### L [id number] ####[employer] Operator: NED WILKINS ([id number])[address] MCH (RBC) [Entitic mass] 31.4 pg Normal 26.0-34.0 [facility] Comment on above: Performed By: #### L [id number] ####[employer] Operator: NED WILKINS ([id number])[facility])[address] [place] [address] MCHC 33.0 % Normal 30.5-36.0 [facility] Comment on above: Performed By: #### L [id number] ####[employer] Operator: NED WILKINS ([id number])[address] MCV (RBC) [Entitic vol] 95.2 fL Normal 77.0-99.0 [facility] Comment on above: Performed By: #### L [id number] ####[employer] Operator: NED WILKINS ([id number])[address] Monocytes (Bld) [#/Vol] 0.7 10*3/uL Normal 0.0-0.9 [facility] Comment on above: Performed By: #### L [id number] ####[employer] Operator: NED WILKINS ([id number])[facility])[address] [place] [address] Monocytes/100 WBC (Bld) 10.2 % Normal 5.0-13.0 [facility] Comment on above: Performed By: #### L [id number] ####[employer] Operator: NED WILKINS ([id number])[facility])[address] [place] [address] NEUTROPHILS ABSOLUTE 4.1 10*3/uL Normal 1.8-7.5 [facility] Comment on above: Performed By: #### L [id number] ####[employer] Operator: NED WILKINS ([id number])[facility])[address] [place] [address] Neutrophils/100 WBC (Bld) 60.1 % Normal 38.0-82.0 [facility] Comment on above: Performed By: #### L [id number] ####[employer] Operator: NED WILKINS ([id number])[facility])[address] [place] [address] NRBC 0.0 /100 WBCs Normal 0.0-2.[address] [facility] Comment on above: Performed By: #### L [id number] ####[employer] Operator: NED WILKINS ([id number])[facility])[address] [place] [address] Platelet mean volume (Bld) [Entitic vol] 9.3 fL Normal 9.0-12.7 [facility] Comment on above: Performed By: #### L [id number] ####[employer] Operator: NED WILKINS ([id number])[facility] ([facility])[address] [place] [address] [place] Platelets (Bld) [#/Vol] 185 10*3/uL Normal 140-440 [facility] Comment on above: Performed By: #### L [id number] ####[employer] Operator: NED WILKINS ([phone])[facility])[address] [place] [address] [place] RBC (Bld) [#/Vol] 3.31 10*6/uL Low 3.80-5.20 [facility] Comment on above: Performed By: #### L [id number] ####[employer] Operator: NED WILKINS ([id number])[facility])[address] [place] [address] WBC (Bld) [#/Vol] 6.8 10*3/uL Normal 3.6-10.7 [facility] Comment on above: Performed By: #### L [id number] ####[employer] Operator: NED WILKINS ([id number])[facility])[address] [place] [address] Basophils (Bld) [#/Vol] 0.0 10*3/uL Normal 0.0-0.2 [facility] Comment on above: Performed By: #### L [id number] ####[employer] Operator: NED WILKINS ([id number])[facility])[address] [place] [address] Basophils/100 WBC (Bld) 0.4 % Normal 0.0-2.0 [facility] Comment on above: Performed By: #### L [id number] ####[employer] Operator: NED WILKINS ([id number])[facility])[address] [place] [address] Eosinophils (Bld) [#/Vol] 0.1 10*3/uL Normal 0.0-0.5 [facility] Comment on above: Performed By: #### L [id number] ####[employer] Operator: NED WILKINS ([id number])[facility])[address] [place] [address] Eosinophils/100 WBC (Bld) 1.8 % Normal 0.0-6.0 [facility] Comment on above: Performed By: #### L [id number] ####[employer] Operator: NED WILKINS ([id number])[facility])[address] [place] [address] Erythrocyte distribution width (RBC) [Ratio] 14.1 % Normal 11.5-15.0 [facility] Comment on above: Performed By: #### L [id number] ####[employer] Operator: NED WILKINS ([phone])[facility])[address] [place] [address] Hematocrit (Bld) [Volume fraction] 32.7 % Low 35.0-47.0 [facility] Comment on above: Performed By: #### L [id number] ####[employer] Operator: NED WILKINS ([phone])[facility])[address] [place] [address] Hemoglobin (Bld) [Mass/Vol] 10.7 g/dL Low 11.7-16.0 [facility] Comment on above: Performed By: #### L [id number] ####[employer] Operator: NED WILKINS ([id number])[address] IMMATURE GRANS % 0.4 % Normal 0.0-2.0 [facility] Comment on above: Performed By: #### L [id number] ####[employer] Operator: NED WILKINS ([id number])[address] IMMATURE GRANS ABSOLUTE 0.0 10*3/uL Normal <0.1 [facility] Comment on above: Performed By: #### L [id number] ####[employer] Operator: NED WILKINS ([id number])[facility])[address] [place] [address] Lymphocytes (Bld) [#/Vol] 1.8 10*3/uL Normal 1.0-4.3 [facility] Comment on above: Performed By: #### L [id number] ####[employer] Operator: NED WILKINS ([id number])[address] Lymphocytes/100 WBC (Bld) 23.7 % Normal 15.0-45.0 [facility] Comment on above: Performed By: #### L [id number] ####[employer] Operator: NED WILKINS ([id number])[facility])[address] [place] [address] MCH (RBC) [Entitic mass] 31.4 pg Normal 26.0-34.0 [facility] Comment on above: Performed By: #### L [id number] ####[employer] Operator: NED WILKINS ([phone])[facility])[address] [place] [address] MCHC 32.7 % Normal 30.5-36.0 [facility] Comment on above: Performed By: #### L [id number] ####[employer] Operator: NED WILKINS ([id number])[facility])[address] [place] [address] MCV (RBC) [Entitic vol] 95.9 fL Normal 77.0-99.0 [facility] Comment on above: Performed By: #### L [id number] ####[employer] Operator: NED WILKINS ([id number])[facility])[address] [place] [address] Monocytes (Bld) [#/Vol] 0.7 10*3/uL Normal 0.0-0.9 [facility] Comment on above: Performed By: #### L [id number] ####[employer] Operator: NED WILKINS ([id number])[facility])[address] [place] [address] Monocytes/100 WBC (Bld) 9.1 % Normal 5.0-13.0 [facility] Comment on above: Performed By: #### L [id number] ####[employer] Operator: NED WILKINS ([id number])[facility])[address] [place] [address] NEUTROPHILS ABSOLUTE 4.8 10*3/uL Normal 1.8-7.5 [facility] Comment on above: Performed By: #### L [id number] ####[employer] Operator: NED WILKINS ([id number])[facility])[address] [place] [address] Neutrophils/100 WBC (Bld) 64.6 % Normal 38.0-82.0 [facility] Comment on above: Performed By: #### L [id number] ####[employer] Operator: NED WILKINS ([id number])[facility] ([facility])[address] [place] [address] NRBC 0.0 /100 WBCs Normal 0.0-2.0 [facility] Comment on above: Performed By: #### L [id number] ####[employer] Operator: NED WILKINS ([id number])[facility])[address] [place] [address] Platelet mean volume (Bld) [Entitic vol] 9.0 fL Normal 9.0-12.7 [facility] Comment on above: Performed By: #### L [id number] ####[employer] Operator: NED WILKINS ([id number])[facility])[address] [place] [address] Platelets (Bld) [#/Vol] 190 10*3/uL Normal 140-440 [facility] Comment on above: Performed By: #### L [id number] ####[employer] Operator: NED WILKINS ([phone])[facility])[address] [place] [address] RBC (Bld) [#/Vol] 3.41 10*6/uL Low 3.80-5.20 [facility] Comment on above: Performed By: #### L [id number] ####[employer] Operator: NED WILKINS ([id number])[facility] ([facility])[address] [place] [address] WBC (Bld) [#/Vol] 7.4 10*3/uL Normal 3.6-10.7 [facility] Comment on above: Performed By: #### L [id number] ####[employer] Operator: NED WILKINS ([id number])[facility] ([facility])[address] [place] [address] CT CERVICAL SPINE WO IV CONT RASTon 12-12-2024 CT CERVICAL SPINE WO IV CONTRAST Patient Name: CAROLYN CINTRON : 1945 [facility]#: [id number] Exam Date/Time: 06/17/2024 00:38 Procedure: CT CERVICAL SPINE WO IV CONTRAST Ordering Provider: PAULINO SHAYA Reason For Exam: fall, hit head CT HEAD AND CERVICAL SPINE CLINICAL INDICATION: fall on asa COMPARISON: None HEAD: Technique: Axial CT images were obtained from skull base to vertex. Images were reformatted in coronal and sagittal projections. Dose reduction was employed with automated exposure control. Intravenous contrast: None Findings: Focal right parietal scalp edema. Bilateral basal ganglionic calcification. Empty sella turcica. There is no CT evidence of an acute intracranial hemorrhage, territorial infarction, midline shift, mass effect, or extra-axial collection. The santiago-white differentiation remains preserved and the basal cisterns are patent.Ventricles are appropriate in size for the patient's age and level of parenchymal volume. No fractures are seen. The paranasal sinuses and mastoid air cells remain well aerated. CERVICAL SPINE: TECHNIQUE: Axial CT images were obtained of the cervical spine. Images were reformatted in coronal and sagittal projections. Intravenous contrast: None FINDINGS: No prevertebral soft tissue swelling is identified. Predental space is within normal limits and the lateral masses of C1 are in appropriate position. The craniocervical junction is intact. There is reversal of normal cervical lordosis. The vertebral bodies of the cervical spine are normal in height without evidence of an acute fracture. There is no evidence of a spinous process fracture. Degenerative disc space loss, endplate sclerosis and osteophytosis is seen throughout the cervical spine with uncovertebral hypertrophy and facet arthropathy demonstrating mild central canal narrowing and variable degrees of mild to moderate neural foraminal narrowing, worst at the lower cervical levels. The airways are patent and the lung apices are clear. No cervical lymphadenopathy is seen. The thyroid is normal. IMPRESSION: COMBINED IMPRESSION: 1. No acute intracranial hemorrhage or territorial infarct. 2. No acute osseous injury of the cervical spine. Reversal of normal cervical lordosis with mild multilevel degenerative changes. Report Dictated on Electronically Signed By: Wisam Lo DR Electronically Signed Date/Time: 06/17/2024 1:02 AM EST fall, fracture seen on outpt imaging of distal femur Normal [facility] CT Cervical spine WO ant briscoe 06-17-2024 [facility] 1945 [id number] Exam Date/Time: 06/17/2024 00:38 Procedure: CT CERVICAL SPINE WO IV CONTRAST Ordering Provider: PAULINO SHAYA Reason For Exam: fall, hit head CT HEAD AND CERVICAL SPINE CLINICAL INDICATION: fall on asa COMPARISON: None HEAD: Technique: Axial CT images were obtained from skull base to vertex. Images were reformatted in coronal and sagittal projections. Dose reduction was employed with automated exposure control. Intravenous contrast: None Findings: Focal right parietal scalp edema. Bilateral basal ganglionic calcification. Empty sella turcica. There is no CT evidence of an acute intracranial hemorrhage, territorial infarction, midline shift, mass effect, or extra-axial collection. The santiago-white differentiation remains preserved and the basal cisterns are patent.Ventricles are appropriate in size for the patient's age and level of parenchymal volume. No fractures are seen. The paranasal sinuses and mastoid air cells remain well aerated. CERVICAL SPINE: TECHNIQUE: Axial CT images were obtained of the cervical spine. Images were reformatted in coronal and sagittal projections. Intravenous contrast: None FINDINGS: No prevertebral soft tissue swelling is identified. Predental space is within normal limits and the lateral masses of C1 are in appropriate position. The craniocervical junction is intact. There is reversal of normal cervical lordosis. The vertebral bodies of the cervical spine are normal in height without evidence of an acute fracture. There is no evidence of a spinous process fracture. Degenerative disc space loss, endplate sclerosis and osteophytosis is seen throughout the cervical spine with uncovertebral hypertrophy and facet arthropathy demonstrating mild central canal narrowing and variable degrees of mild to moderate neural foraminal narrowing, worst at the lower cervical levels. The airways are patent and the lung apices are clear. No cervical lymphadenopathy is seen. The thyroid is normal. [facility] Wisam Lo MD - 06/17/2024 Patient Name: CAROLYN CINTRON : 1945 [facility]#: [id number] Exam Date/Time: 06/17/2024 00:38 Procedure: CT CERVICAL SPINE WO IV CONTRAST Ordering Provider: PAULINO SHAYA Reason For Exam: fall, hit head CT HEAD AND CERVICAL SPINE CLINICAL INDICATION: fall on asa COMPARISON: None HEAD: Technique: Axial CT images were obtained from skull base to vertex. Images were reformatted in coronal and sagittal projections. Dose reduction was employed with automated exposure control. Intravenous contrast: None Findings: Focal right parietal scalp edema. Bilateral basal ganglionic calcification. Empty sella turcica. There is no CT evidence of an acute intracranial hemorrhage, territorial infarction, midline shift, mass effect, or extra-axial collection. The santiago-white differentiation remains preserved and the basal cisterns are patent.Ventricles are appropriate in size for the patient's age and level of parenchymal volume. No fractures are seen. The paranasal sinuses and mastoid air cells remain well aerated. CERVICAL SPINE: TECHNIQUE: Axial CT images were obtained of the cervical spine. Images were reformatted in coronal and sagittal projections. Intravenous contrast: None FINDINGS: No prevertebral soft tissue swelling is identified. Predental space is within normal limits and the lateral masses of C1 are in appropriate position. The craniocervical junction is intact. There is reversal of normal cervical lordosis. The vertebral bodies of the cervical spine are normal in height without evidence of an acute fracture. There is no evidence of a spinous process fracture. Degenerative disc space loss, endplate sclerosis and osteophytosis is seen throughout the cervical spine with uncovertebral hypertrophy and facet arthropathy demonstrating mild central canal narrowing and variable degrees of mild to moderate neural foraminal narrowing, worst at the lower cervical levels. The airways are patent and the lung apices are clear. No cervical lymphadenopathy is seen. The thyroid is normal. IMPRESSION: COMBINED IMPRESSION: 1. No acute intracranial hemorrhage or territorial infarct. 2. No acute osseous injury of the cervical spine. Reversal of normal cervical lordosis with mild multilevel degenerative changes. Report Dictated on Electronically Signed By: Wisam Lo DR Electronically Signed Date/Time: 06/17/2024 1:02 AM EST [employer] CT HEAD WO IV CONTRASTon CT HEAD WO IV CONTRAST [facility] 1945 [id number] Exam Date/Time: 06/17/2024 00:38 Procedure: CT HEAD WO IV CONTRAST Ordering Provider: PAULINO SHAYA Reason For Exam: fall on asa CT HEAD AND CERVICAL SPINE CLINICAL INDICATION: fall on asa COMPARISON: None HEAD: Technique: Axial CT images were obtained from skull base to vertex. Images were reformatted in coronal and sagittal projections. Dose reduction was employed with automated exposure control. Intravenous contrast: None Findings: Focal right parietal scalp edema. Bilateral basal ganglionic calcification. Empty sella turcica. There is no CT evidence of an acute intracranial hemorrhage, territorial infarction, midline shift, mass effect, or extra-axial collection. The santiago-white differentiation remains preserved and the basal cisterns are patent.Ventricles are appropriate in size for the patient's age and level of parenchymal volume. No fractures are seen. The paranasal sinuses and mastoid air cells remain well aerated. CERVICAL SPINE: TECHNIQUE: Axial CT images were obtained of the cervical spine. Images were reformatted in coronal and sagittal projections. Intravenous contrast: None FINDINGS: No prevertebral soft tissue swelling is identified. Predental space is within normal limits and the lateral masses of C1 are in appropriate position. The craniocervical junction is intact. There is reversal of normal cervical lordosis. The vertebral bodies of the cervical spine are normal in height without evidence of an acute fracture. There is no evidence of a spinous process fracture. Degenerative disc space loss, endplate sclerosis and osteophytosis is seen throughout the cervical spine with uncovertebral hypertrophy and facet arthropathy demonstrating mild central canal narrowing and variable degrees of mild to moderate neural foraminal narrowing, worst at the lower cervical levels. The airways are patent and the lung apices are clear. No cervical lymphadenopathy is seen. The thyroid is normal. IMPRESSION: COMBINED IMPRESSION: 1. No acute intracranial hemorrhage or territorial infarct. 2. No acute osseous injury of the cervical spine. Reversal of normal cervical lordosis with mild multilevel degenerative changes. Report Dictated on Electronically Signed By: Wisam Lo DR Electronically Signed Date/Time: 06/17/2024 1:02 AM EST fall, fracture seen on outpt imaging of distal femur Normal [facility] CT Head WO contraston 2023 Patient Name: CAROLYN CINTRON : 1945 Exam Date/Time: 06/17/2024 00:38 Procedure: CT HEAD WO IV CONTRAST Ordering Provider: PAULINO SHAYA Reason For Exam: fall on asa CT HEAD AND CERVICAL SPINE CLINICAL INDICATION: fall on asa COMPARISON: None HEAD: Technique: Axial CT images were obtained from skull base to vertex. Images were reformatted in coronal and sagittal projections. Dose reduction was employed with automated exposure control. Intravenous contrast: None Findings: Focal right parietal scalp edema. Bilateral basal ganglionic calcification. Empty sella turcica. There is no CT evidence of an acute intracranial hemorrhage, territorial infarction, midline shift, mass effect, or extra-axial collection. The santiago-white differentiation remains preserved and the basal cisterns are patent.Ventricles are appropriate in size for the patient's age and level of parenchymal volume. No fractures are seen. The paranasal sinuses and mastoid air cells remain well aerated. CERVICAL SPINE: TECHNIQUE: Axial CT images were obtained of the cervical spine. Images were reformatted in coronal and sagittal projections. Intravenous contrast: None FINDINGS: No prevertebral soft tissue swelling is identified. Predental space is within normal limits and the lateral masses of C1 are in appropriate position. The craniocervical junction is intact. There is reversal of normal cervical lordosis. The vertebral bodies of the cervical spine are normal in height without evidence of an acute fracture. There is no evidence of a spinous process fracture. Degenerative disc space loss, endplate sclerosis and osteophytosis is seen throughout the cervical spine with uncovertebral hypertrophy and facet arthropathy demonstrating mild central canal narrowing and variable degrees of mild to moderate neural foraminal narrowing, worst at the lower cervical levels. The airways are patent and the lung apices are clear. No cervical lymphadenopathy is seen. The thyroid is normal. [facility] Wisam Lo MD - 06/17/2024 Patient Name: CAROLYN CINTRON : 1945 Exam Date/Time: 06/17/2024 00:38 Procedure: CT HEAD WO IV CONTRAST Ordering Provider: PAULINO SHAYA Reason For Exam: fall on asa CT HEAD AND CERVICAL SPINE CLINICAL INDICATION: fall on asa COMPARISON: None HEAD: Technique: Axial CT images were obtained from skull base to vertex. Images were reformatted in coronal and sagittal projections. Dose reduction was employed with automated exposure control. Intravenous contrast: None Findings: Focal right parietal scalp edema. Bilateral basal ganglionic calcification. Empty sella turcica. There is no CT evidence of an acute intracranial hemorrhage, territorial infarction, midline shift, mass effect, or extra-axial collection. The santiago-white differentiation remains preserved and the basal cisterns are patent.Ventricles are appropriate in size for the patient's age and level of parenchymal volume. No fractures are seen. The paranasal sinuses and mastoid air cells remain well aerated. CERVICAL SPINE: TECHNIQUE: Axial CT images were obtained of the cervical spine. Images were reformatted in coronal and sagittal projections. Intravenous contrast: None FINDINGS: No prevertebral soft tissue swelling is identified. Predental space is within normal limits and the lateral masses of C1 are in appropriate position. The craniocervical junction is intact. There is reversal of normal cervical lordosis. The vertebral bodies of the cervical spine are normal in height without evidence of an acute fracture. There is no evidence of a spinous process fracture. Degenerative disc space loss, endplate sclerosis and osteophytosis is seen throughout the cervical spine with uncovertebral hypertrophy and facet arthropathy demonstrating mild central canal narrowing and variable degrees of mild to moderate neural foraminal narrowing, worst at the lower cervical levels. The airways are patent and the lung apices are clear. No cervical lymphadenopathy is seen. The thyroid is normal. IMPRESSION: COMBINED IMPRESSION: 1. No acute intracranial hemorrhage or territorial infarct. 2. No acute osseous injury of the cervical spine. Reversal of normal cervical lordosis with mild multilevel degenerative changes. Report Dictated on Electronically Signed By: Wisam Lo DR Electronically Signed Date/Time: 06/17/2024 1:02 AM EST [employer] CT LOWER EXTREMITY RIGHT WO IV CONTRASTon 06-17-2024 CT LOWER EXTREMITY RIGHT WO IV CONTRAST Patient Name: CAROLYN CINTRON : 1945 Exam Date/Time: 06/17/2024 00:38 Procedure: CT LOWER EXTREMITY RIGHT WO IV CONTRAST Ordering Provider: PAULINO SHAYA Reason For Exam: fall, fracture seen on outpt imaging of distal femur Clinical history: Fall, fracture COMPARISON: Radiographs from earlier today TECHNIQUE: Axial noncontrast images of the right femur without IV contrast. Subsequent coronal and sagittal reformatted images were created for further evaluation. Dose reduction was employed with automated exposure control. Three dimensional volume rendered and maximum intensity projection reconstruction was performed concurrently with independent workstation software by the radiologist to better visualize the osseous structures in various orientations. FINDINGS: Oblique fracture of the distal third of the right femur with foreshortening and posterior displacement. No other fractures or dislocations seen. Right knee arthroplasty hardware with associated streak artifact limiting limiting evaluation of adjacent structures. Small suprapatellar effusion in the right knee. Right hip joint is normal in appearance. Moderate atherosclerotic calcification of the right superficial femoral and popliteal artery with no adjacent hematoma or bone fragments. Thao catheter in the bladder. IMPRESSION: Displaced fracture of the distal right femoral diaphysis. Report Dictated on Electronically Signed By: Wisam Lo DR Electronically Signed Date/Time: 06/17/2024 12:56 AM EST fall, fracture seen on outpt imaging of distal femur [facility] Consulton 06-17-2024 Consult Ortho H&P/Consult Patient: Carolyn Cintron Date of : 1945 Acct: [id number] PCP: No primary care provider on file. Date of Admission: 06/16/2024 Date of Service: Pt seen/examined on 06/17/2024 Chief Complaint: Right knee pain History Of Present Illness: This is a 78 y.o. female with right knee pain after a fall from standing today. She states that she was on the steps and fell sideways hitting her head and knee. She denies loss of consciousness. She denies significant pain to any other extremities besides her left foot. She endorses some numbness and tingling in her right foot following the fall. She denies any other numbness or tingling. She did have a right total knee replacement approximately [address] William at [facility]. She denies having any pain in this knee prior to the fall today. Relevant orthopedic surgical history and PMH include bilateral TKA with Dr. William at [facility] approximately 10-20 years ago, 3x spine surgery Lives at: home with and younger son Alcohol/tobacco/illicit drug use: denies Patient ambulation status: ambulates with: cane Antiplatelets/Anticoagu lation includes: none Hx from chart and/or Pt. Past Medical History: Past Medical History: Diagnosis Date Asthma Diabetes mellitus (HCC) Disease of thyroid gland 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 Past Surgical History: Past Surgical History: Procedure Laterality Date BACK SURGERY 3 spinal surgeries CARPAL TUNNEL RELEASE Bilateral 1974 CHOLECYSTECTOMY 1984 HYSTERECTOMY 1990 JOINT REPLACEMENT Bilateral 10years ago Home Medications: Prior to Admission medications Not on File Current Hospital Medications: Current Facility-Administered Medications: [Transfer Hold] acetaminophen (Tylenol) tablet 650 mg, 650 mg, Oral, q6h PRN OR [Transfer Hold] acetaminophen (Tylenol) suppository 650 mg, 650 mg, Rectal, q6h PRN, Christy Snyder DO [Transfer Hold] acetaminophen (Tylenol) tablet 1,000 mg, 1,000 mg, Oral, q8h, Christy Snyder DO, 1,000 mg at 06/17/24 0340 [Transfer Hold] aspirin EC tablet 81 mg, 81 mg, Oral, Daily, Christy Snyder DO [Transfer Hold] dextrose 5 % infusion, 100 mL/hr, IntraVENous, PRN, Christy Snyder DO [Transfer Hold] dextrose 50 % solution 12.5 g, 12.5 g, IntraVENous, PRN, Christy Snyder DO [Transfer Hold] glucagon (human recombinant) injection 1 mg, 1 mg, IntraMUSCular, PRN, Christy Snyder DO [Transfer Hold] glucose oral gel 15 g, 15 g, Oral, PRN, Christy Snyder DO [Transfer Hold] insulin glargine (Lantus) injection 25 Units, 25 Units, SubCUTAneous, Nightly, Christy Snyder DO [Transfer Hold] insulin regular (HumuLIN R,NovoLIN R) injection 0-18 Units, 0-18 Units, SubCUTAneous, q6h, Christy Snyder DO [Transfer Hold] lisinopril tablet 10 mg, 10 mg, Oral, Daily, Christy Snyder DO, 10 mg at 06/17/24 0839 [Transfer Hold] metoprolol succinate XL (Toprol-XL) 24 hr tablet 25 mg, 25 mg, Oral, Daily, Christy Snyder DO, 25 mg at 06/17/24 0839 [Transfer Hold] naloxone (Narcan) injection 0.4 mg, 0.4 mg, IntraVENous, q5 min PRN, Christy Snyder DO [Transfer Hold] ondansetron ODT (Zofran-ODT) disintegrating tablet 4 mg, 4 mg, Oral, q8h PRN OR [Transfer Hold] ondansetron (Zofran) injection 4 mg, 4 mg, IntraVENous, q6h PRN, Christy Snyder DO [Transfer Hold] oxyCODONE (Roxicodone) immediate release tablet 2.5 mg, 2.5 mg, Oral, q4h PRN OR [Transfer Hold] oxyCODONE (Roxicodone) immediate release tablet 5 mg, 5 mg, Oral, q4h PRN, Christy Snyder DO, 5 mg at 06/17/24 0340 [Transfer Hold] polyethylene glycol (PEG) 3350 (Miralax) packet 17 g, 17 g, Oral, Daily PRN, Christy Snyder DO [Transfer Hold] rosuvastatin (Crestor) tablet 20 mg, 20 mg, Oral, Nightly, Christy Snyder DO Allergies: Keflex [cephalexin], Penicillins, and Sulfa antibiotics Social History: Social History Socioeconomic History Marital status: Spouse name: Not on file Number of children: Not on file Years of education: Not on file Highest education level: Not on file Occupational History Not on file Tobacco Use Smoking status: Never Smokeless tobacco: Never Substance and Sexual Activity Alcohol use: Not on file Drug use: Not on file Sexual activity: Not on file Other Topics Concern Not on file Social History Narrative Not on file Social Drivers of Health Financial Resource Strain: Not on file Food Insecurity: No Food Insecurity (06/17/2024) Hunger Vital Sign Worried About Running Out of Food in the Last Year: Never true Ran Out of Food in the Last Year: Never true Transportation Needs: No Transportation Needs (06/17/2024) PRAPARE - Transportation Lack of Transportation (Medical): No Lack of Transportation (Non-Medical): No Physical Activity: Not on file Stress: Not on file Social Connections: Not on file Intimate Partner Violence: Not At Risk ( (more content not included)... [facility] ECG 12-LEADon 06-17-2024 ECG 12-LEAD IMPRESSION: NORMAL SINUS RHYTHM Low voltage, extremity and precordial leads Electronically Signed On 06-17-2024 08:15:08 EST by Darrick Recinos Normal [facility] HEMOGLOBIN A1Con 06-17-2024 Glucose [Mass/Vol] 134 mg/dL Normal [facility] Comment on above: Result Comment: CRISTOPHER Coello COMMENTS: If not done within the last 3 mos HbA1c values of 5.7-6.4 percent indicate an increased risk for developing diabetes mellitus. HbA1c values greater than or equal to 6.5 percent are diagnostic of diabetes mellitus. For diagnosis of diabetes in individuals without unequivocal hyperglycemia, results should be confirmed by repeat testing. Performed By: #### L AB90 ####[employer] Operator: NED WILKINS ([id number])[address] HEMOGLOBIN A1C 6.3 %HbA1C High <5.7 [facility] Comment on above: Result Comment: Norm al less than 5.7% Prediabetes 5.7% to 6.4% Diabetes 6.5% or higher --HgbA1C levels may not be accurate in patients who have renal disease, received recent blood transfusions, are anemic, or who have dyshemoglobinemia. Performed By: #### L AB90 ####[employer] Operator: NED WILKINS ([id number])[facility] ([facility])[address] [place] [address] Laboratory - Chemistry and C hemistry - challengeon 06-17-2024 Glucose [Mass/Vol] 192 mg/dL High 70 - 100 mg/dL [facility] Glucose [Mass/Vol] 282 mg/dL High 70 - 100 mg/dL [facility] Glucose [Mass/Vol] 299 mg/dL High 70 - 100 mg/dL [facility] Glucose [Mass/Vol] 224 mg/dL High 70 - 100 mg/dL [facility] Glucose [Mass/Vol] 230 mg/dL High 70 - 100 mg/dL [facility] Glucose [Mass/Vol] 147 mg/dL High 70 - 100 mg/dL [facility] Average glucose Estimated from glycated hemoglobin (Bld) [Mass/Vol] 134 mg/dL [facility] Glucose [Mass/Vol] 146 mg/dL High 70 - 100 mg/dL [facility] Laboratory - Coagulationon 1 08-18-2023 PT Coag (Bld) [Time] 11.7 s 9.0 - 1 2.0 s [facility] Laboratory - Hematology and Cell countson 06-17-2024 HbA1c (Bld) [Mass fraction] 6.3 % High NINF [facility] [employer] Comment on above: Normal less than 5.7 % Prediabetes 5.7% to 6.4% Diabetes 6.5% or higher --HgbA1C levels may not be accurate in patients who have renal disease, received recent blood transfusions, are anemic, or who have dyshemoglobinemia. No Panel Informationon 06-17 Interpretation and review of laboratory results Abnormal [facility] [employer] Performed by: [facility] [employer] [facility], [address] [place], [place] [id number] CLIA ID: [id number] [facility] [employer] [facility] Interpretation and review of laboratory results Abnormal [facility] [employer] Performed by: [facility], [address] [place] [address] CLIA ID: [id number] [facility] [employer] [facility] Interpretation and review of laboratory results Abnormal [facility] Performed by: [facility] [employer] [facility], [address] [place] [address] CLIA ID: [id number] [facility] [employer] [facility] Interpretation and review of laboratory results Abnormal [facility] Performed by: [facility] [employer] [facility], [address] [place] [address] CLIA ID: [id number] [facility] [employer] [facility] Interpretation and review of laboratory results Abnormal [facility] [employer] Performed by: [facility] [employer] [facility], [address] [place] [id number] CLIA ID: [id number] [facility] There is no interpretation needed for this exam. IMAGING Interpretation and review of laboratory results Abnormal [facility] Performed by: [facility], [address] [place] [id number] CLIA ID: [id number] [facility] NORMAL SINUS RHYTHM Low voltage, extremity and precordial leads Electronically Signed On 06-17-2024 08:15:08 EST by Darrick Ramires MD - 06/17/2024 IMPRESSION: NORMAL SINUS RHYTHM Low voltage, extremity and precordial leads Electronically Signed On 06-17-2024 08:15:08 EST by Darrick Recinos [facility] Interpretation and review of laboratory results Abnormal [facility] HbA1c values of 5.7- 6.4 percent indicate an increased risk for developing diabetes mellitus. HbA1c values greater than or equal to 6.5 percent are diagnostic of diabetes mellitus. For diagnosis of diabetes in individuals without unequivocal hyperglycemia, results should be confirmed by repeat testing. [facility] Interpretation and review of laboratory results Abnormal [facility] Performed by: [facility], [address] [place] [id number] CLIA ID: [id number] [facility] COMBINED IMPRESSION: 1. No acute intracranial hemorrhage or territorial infarct. 2. No acute osseous injury of the cervical spine. Reversal of normal cervical lordosis with mild multilevel degenerative changes. Report Dictated on Electronically Signed By: Wisam Lo DR Electronically Signed Date/Time: 06/17/2024 1:02 AM [employer] [facility] Displaced fracture o f the distal right femoral diaphysis. Report Dictated on Electronically Signed By: Wisam Lo DR Electronically Signed Date/Time: 06/17/2024 12:56 AM [employer] [facility] Patient Name: CAROLYN CINTRON : 1945 Exam Date/Time: 06/17/2024 00:38 Procedure: CT LOWER EXTREMITY RIGHT WO IV CONTRAST Ordering Provider: PAULINO SHAYA Reason For Exam: fall, fracture seen on outpt imaging of distal femur Clinical history: Fall, fracture COMPARISON: Radiographs from earlier today TECHNIQUE: Axial noncontrast images of the right femur without IV contrast. Subsequent coronal and sagittal reformatted images were created for further evaluation. Dose reduction was employed with automated exposure control. Three dimensional volume rendered and maximum intensity projection reconstruction was performed concurrently with independent workstation software by the radiologist to better visualize the osseous structures in various orientations. FINDINGS: Oblique fracture of the distal third of the right femur with foreshortening and posterior displacement. No other fractures or dislocations seen. Right knee arthroplasty hardware with associated streak artifact limiting limiting evaluation of adjacent structures. Small suprapatellar effusion in the right knee. Right hip joint is normal in appearance. Moderate atherosclerotic calcification of the right superficial femoral and popliteal artery with no adjacent hematoma or bone fragments. Thao catheter in the bladder. [facility] Wally, Wisam Schneider MD - 06/17/2024 [facility] 1945 [id number] Exam Date/Time: 06/17/2024 00:38 Procedure: CT LOWER EXTREMITY RIGHT WO IV CONTRAST Ordering Provider: PAULINO SHAYA Reason For Exam: fall, fracture seen on outpt imaging of distal femur Clinical history: Fall, fracture COMPARISON: Radiographs from earlier today TECHNIQUE: Axial noncontrast images of the right femur without IV contrast. Subsequent coronal and sagittal reformatted images were created for further evaluation. Dose reduction was employed with automated exposure control. Three dimensional volume rendered and maximum intensity projection reconstruction was performed concurrently with independent workstation software by the radiologist to better visualize the osseous structures in various orientations. FINDINGS: Oblique fracture of the distal third of the right femur with foreshortening and posterior displacement. No other fractures or dislocations seen. Right knee arthroplasty hardware with associated streak artifact limiting limiting evaluation of adjacent structures. Small suprapatellar effusion in the right knee. Right hip joint is normal in appearance. Moderate atherosclerotic calcification of the right superficial femoral and popliteal artery with no adjacent hematoma or bone fragments. Thao catheter in the bladder. IMPRESSION: Displaced fracture of the distal right femoral diaphysis. Report Dictated on Electronically Signed By: Wisam Lo DR Electronically Signed Date/Time: 06/17/2024 12:56 AM EST [facility] [employer] [facility] [employer] Radiology Study observation (narrative) [employer] Scroll.in Panel InformationOrdered By: Darrick Recinos on 06-17-2024 P Adger 0 degrees [employer] Work Phone: IA Interval 0 ms [employer] Work Phone: QRS Adger 72 degrees [employer] Work Phone: QRSD Interval 104 ms [facility] Work Phone: QT Interval 430 ms [employer] Work Phone: QTC Interval 452 ms [employer] Work Phone: T Wave Adger 62 degrees [employer] Work Phone: [employer] Work Phone: Nursing Noteon 06-17-2024 Nursing Note Report called to PRINCE Sánchez on H6. Normal [facility]S Op Noteon 06-17-2024 Op Note [facility] OR [address] [facility] [address] Dept: [phone] Loc: [phone] Operative Report Patient Name: Carolyn Cintron Date of : 1945 Date of Surgery: 06/17/24 Pre-operative diagnosis: Right extra-articular distal femur fracture Post-operative diagnosis: Same Procedure(s): Retrograde right femoral nail Surgeon: Mika Uribe M.D. Marketing Teacher(s): Keith Alexandra M.D. and aPresh Cordon M.D. Anesthesia: General EBL: 200 cc IVF: Crystalloid Medications: Ancef 2 grams IV Implants: [employer]ynthes retrograde femoral nail with lateral plate glass grinder and locking screws, 12mm x36cm nail Clinical History/Indication for Surgery The patient is a 78 y.o. year old female who was presents for operative fixation of a right femur fracture. Typical indications for surgery were reviewed and retrograde nailing was recommended. Risks of surgery in general were reviewed including, but not limited to, infection, nonunion, need for additional procedures, failure of fixation which would require revision, damage to normal structures as well as medical complications such as GA, stroke, PE, DVT, and even . Patient and any family present were given opportunity to ask questions and consider her options ultimately electing to proceed with surgery. No guarantees were given or implied. Operative Narration The patient was identified in the pre-operative holding area. The surgical site was identified and marked. Informed consent was obtained. The patient was then brought to the operating room and placed supine on the operating table. Anesthesia was administered and care of the head, neck, and airway was maintained by the anesthesia staff throughout the entire procedure. All bony prominences were identified and padded. The operative leg was prepped and draped in the usual sterile fashion. A surgical timeout was performed. Antibiotics were confirmed to have been given. Lateral approach was made and the vastus elevated anteriorly. The fracture was clamped and two cables placed to compress the fracture. While passing the cables, I could directly palpate the passer to be on bone to ensure no soft tissue was between the passer/cable and bone. These were tightened which held an anatomic reduction. A patellar tendon split technique was used with the tendon split in the midportion.. The 3.2mm guide pin was placed under AP and lateral fluoroscopic guidance. Once correctly positioned the entry reamer was passed over the pin. The long ball-tipped guidewire was passed across fracture and centered in the proximal femur. With the fracture at the correct length, the length of the nail was measured. Sequetial reaming was performed until chatter was obtained within the femur. The correct length and diameter nail was then impacted and the nail confirmed to be buried beneath the joint using lateral fluoroscopy of the knee. A perfect lateral image of the knee was obtained and the nail rotated until the lateral to medial holes in the nail were in a perfect king island orientation, indicating correct nail rotation relative to the distal femur. The lateral plate glass grinder was placed and fine adjustment to rotation made until the plate was sitting flush with the lateral cortex of the distal femur. The oblique locking screws were drilled measured and filled to lock the nail to the distal segment. Both optilink screws were placed at this time to fix the plate to the nail. Final confirmation of the length, alignment and rotation was performed and proximal nail locking was performed using perfect king island technique. The 3.5mm distal locking screws were then placed to maximize distal fixation. Final films were obtained and saved. There was no evidence of femoral neck fracture noted intra-operatively. All incisions were irrigated and closed in a layered fashion. Sterile dressings were applied. Length and rotation were again assessed compared to the contralateral leg and were found to be grossly symmetric. Once the patient was awakened from anesthesia, they were transported to the PACU in stable condition, having tolerated surgery well with no immediate complications. Postoperative Plan WBAT right leg Abx x 24hrs DVT prophylaxis Follow up 2wks This operative report was prepared and signed by Mika Uribe MD at 06/17/24, 2:46 PM Normal [facility] PROTHROMBIN TIMEon INR Coag (PPP) [Relative time] 1.0 {INR} Normal 0.9-1.1 [facility] Comment on above: Result Comment: Vikash mmended Anticoagulant Therapy: SEE BELOW ----- INR of 2.0 - 3.0 : - Prophylaxis of Venous Thrombosis (high-risk surgery) - Treatment of Venous Thrombosis - Treatment of Pulmonary Embolism (Includes tissue heart valves, Acute Myocardial Infarction to prevent systemic embolism, Valvular Heart Disease, and Atrial Fibrillation) ----- INR of 2.5 - 3.5 : - Mechanical Prosthetic Valves (high risk) - If oral anticoagulant therapy is used to prevent Myocardial Infarction Performed By: #### L AB320 ####[employer] Operator: NED WILKINS ([id number])[facility] ([address] PT Coag (PPP) [Time] 11.7 s Normal 9.0-12.0 [facility] Comment on above: Performed By: #### L AB320 ####[employer] Operator: NED WILKINS ([id number])[facility] ([facility])[address] [place] [address] PT Coag (Bld) [Time]on 06-17 INR Coag (PPP) [Relative time] 1 {INR} 0.9 - 1.1 [facility] Comment on above: Recommended Anticoag ulant Therapy: SEE BELOW ----- INR of 2.0 - 3.0 : - Prophylaxis of Venous Thrombosis (high-risk surgery) - Treatment of Venous Thrombosis - Treatment of Pulmonary Embolism (Includes tissue heart valves, Acute Myocardial Infarction to prevent systemic embolism, Valvular Heart Disease, and Atrial Fibrillation) ----- INR of 2.5 - 3.5 : - Mechanical Prosthetic Valves (high risk) - If oral anticoagulant therapy is used to prevent Myocardial Infarction Interpretation and review of laboratory results Normal [facility] Progress Noteon 06-17-2024 Progress Note -Operative plans: No further plans for surgery -Weight bearing: RLE: WBAT LLE: WBAT RUE: WBAT LUE: WBAT -Range of motion parameters: ROM as tolerated -Immobilization: No immobilization needed -Consults: None -Antibiotics: 24 hours of post op antibiotics. -Dressings: Keep dressings clean dry and intact for 5 days post operatively, then ok to leave open to air if incision is without drainage. -Other: None -Diet: no restrictions from ortho standpoint -Labs: CBC & BMP x 2 days post op -PT/OT -PT recommended outpatient/post discharge?: Yes, for basic ADLs -Medical management, dvt ppx and pain control per primary -DVT ppx recommended?: Yes, 30 days of post operative DVT ppx recommended -Follow-up with Dr Uribe in 2 weeks -Ortho to follow. Normal [facility] Progress Note Patient seen earlier today by admitting provider. Patient is a 78-year-old female with history of remote bilateral TKA DM2, CAD, HLD, CKD who presented with right knee pain after mechanical fall from standing. She was on the steps and fell sideways hitting her head and knee, denies loss of consciousness. She was found to have right periprosthetic distal femur fracture. Orthopedic surgery consulted, plan for R femur ORIF 06/17. Right periprosthetic distal femur fracture -Orthopedic surgery following, plan for ORIF today -NWB RLE -Pain control -PT/OT DM2 CAD HLD CKD: Renal function at baseline Normal [facility] Vital signsOrdered By: Rosmery Recinos on 06-17-2024 Heart rate 66 /min bpm [facility] [employer] Work Phone: XR Chest Single viewon 06-17 No acute consolidati ve process. Report Dictated on Electronically Signed By: Wisam Lo DR Electronically Signed Date/Time: 06/17/2024 2:16 AM [facility] Patient Name: CAROLYN CINTRON : 1945 Exam Date/Time: 06/17/2024 01:51 Procedure: XR CHEST 1 VIEW Ordering Provider: NORIEGA YASMIN Reason For Exam: PRE-ANESTHESIA SEDATION Clinical History: PRE-ANESTHESIA SEDATION Comparison: None Technique: Single AP radiograph of the chest. Findings: Cardiomediastinal silhouette and pulmonary vasculature are within normal limits. The lungs and pleural spaces are clear. No sizable pneumothorax. Chronic appearing right proximal humeral fracture deformity. [facility] Wisam Lo MD - 06/17/2024 Patient Name: CAROLYN CINTRON : 1945 Exam Date/Time: 06/17/2024 01:51 Procedure: XR CHEST 1 VIEW Ordering Provider: NORIEGA YASMIN Reason For Exam: PRE-ANESTHESIA SEDATION Clinical History: PRE-ANESTHESIA SEDATION Comparison: None Technique: Single AP radiograph of the chest. Findings: Cardiomediastinal silhouette and pulmonary vasculature are within normal limits. The lungs and pleural spaces are clear. No sizable pneumothorax. Chronic appearing right proximal humeral fracture deformity. IMPRESSION: No acute consolidative process. Report Dictated on Electronically Signed By: Wisam Lo DR Electronically Signed Date/Time: 06/17/2024 2:16 AM [facility] Radiology Study observation (narrative) [facility] XR FEMUR 2+ VW RIGHTon 06-17 XR FEMUR 2+ VW RIGHT Patient Name: CAROLYN CINTRON : 1945 Exam Date/Time: 06/17/2024 14:39 Procedure: XR FEMUR 2+ VW RIGHT Ordering Provider: FRIAS TARANJOT Reason For Exam: s/p ORIF R femur, PACU CLINICAL INFORMATION: Distal right femoral fracture. ORIF. AP and crossfire lateral views of the right femur are provided at 1430 hours. The examination is compared to a previous study of the same dated 0010 hours. FINDINGS: An acute spiral fractures redemonstrated through the distal metadiaphysis of the right femur. An intramedullary zaina is now in place the length of the right femur. Proximal and distal interlocking screws are noted. Cerclage wires are present. The right femur is now in near-anatomic alignment. A remote right knee arthroplasty is evident. IMPRESSION: 1. Distal right femoral fracture status post intramedullary zaina placement. 2. The right femur is now in near-anatomic alignment. Report Dictated on Electronically Signed By: Steven Rojas MD Electronically Signed Date/Time: 06/17/2024 3:47 PM EST [facility] XR Femur - right 2 Viewson 1 08-18-2023 1. Distal right femo ral fracture status post intramedullary zaina placement. 2. The right femur is now in near-anatomic alignment. Report Dictated on Electronically Signed By: Steven Rojas MD Electronically Signed Date/Time: 06/17/2024 3:47 PM EST [facility] [employer] [facility] 1945 [id number] Exam Date/Time: 06/17/2024 14:39 Procedure: XR FEMUR 2+ VW RIGHT Ordering Provider: FRIAS TARANJOT Reason For Exam: s/p ORIF R femur, PACU CLINICAL INFORMATION: Distal right femoral fracture. ORIF. AP and crossfire lateral views of the right femur are provided at 1430 hours. The examination is compared to a previous study of the same dated 0010 hours. FINDINGS: An acute spiral fractures redemonstrated through the distal metadiaphysis of the right femur. An intramedullary zaina is now in place the length of the right femur. Proximal and distal interlocking screws are noted. Cerclage wires are present. The right femur is now in near-anatomic alignment. A remote right knee arthroplasty is evident. [facility] Steven Rojas MD - 06/17/2024 Patient Name: CAROLYN CINTRON : 1945 Exam Date/Time: 06/17/2024 14:39 Procedure: XR FEMUR 2+ VW RIGHT Ordering Provider: FRIAS TARANJOT Reason For Exam: s/p ORIF R femur, PACU CLINICAL INFORMATION: Distal right femoral fracture. ORIF. AP and crossfire lateral views of the right femur are provided at 1430 hours. The examination is compared to a previous study of the same dated 0010 hours. FINDINGS: An acute spiral fractures redemonstrated through the distal metadiaphysis of the right femur. An intramedullary zaina is now in place the length of the right femur. Proximal and distal interlocking screws are noted. Cerclage wires are present. The right femur is now in near-anatomic alignment. A remote right knee arthroplasty is evident. IMPRESSION: 1. Distal right femoral fracture status post intramedullary zaina placement. 2. The right femur is now in near-anatomic alignment. Report Dictated on Electronically Signed By: Steven Rojas MD Electronically Signed Date/Time: 06/17/2024 3:47 PM EST [facility] Radiology Study observation (narrative) [facility] Displaced and angula lana fracture of the distal right femoral diaphysis. Report Dictated on Electronically Signed By: Wisam Lo DR Electronically Signed Date/Time: 06/17/2024 12:27 AM EST [employer] [facility] Patient Name: CAROLYN CINTRON : 1945 Exam Date/Time: 06/17/2024 00:18 Procedure: XR FEMUR 2+ VW RIGHT Ordering Provider: PAULINO SHAYA Reason For Exam: fall, pain +fx @ oneyda Clinical history: fall, pain +fx COMPARISON: None. TECHNIQUE: Right femur, two views FINDINGS: Oblique fracture of the distal third of the right femur with foreshortening and posterior displacement. There is apex lateral angulation of the fracture. No other fractures or dislocations seen. Right knee arthroplasty hardware. Small suprapatellar effusion in the right knee. Right hip joint is normal in appearance. [facility] Wisam Lo MD - 06/17/2024 Patient Name: CAROLYN CINTRON : 1945 Exam Date/Time: 06/17/2024 00:18 Procedure: XR FEMUR 2+ VW RIGHT Ordering Provider: PAULINO SHAYA Reason For Exam: fall, pain +fx @ oneyda Clinical history: fall, pain +fx COMPARISON: None. TECHNIQUE: Right femur, two views FINDINGS: Oblique fracture of the distal third of the right femur with foreshortening and posterior displacement. There is apex lateral angulation of the fracture. No other fractures or dislocations seen. Right knee arthroplasty hardware. Small suprapatellar effusion in the right knee. Right hip joint is normal in appearance. IMPRESSION: Displaced and angulated fracture of the distal right femoral diaphysis. Report Dictated on Electronically Signed By: Wisam Lo DR Electronically Signed Date/Time: 06/17/2024 12:27 AM EST [employer] Radiology Study observation (narrative) [employer] XR Femur - right 2 ViewsOrde red By: Steven Rojas on 06-17-2024 [employer] Work Phone: XR Femur - right 2 ViewsOrde red By: Wisam Lo on 06-17-2024 [employer] Work Phone: XR Foot - left 3 Viewson No acute osseous abnormality of the left foot. Report Dictated on Electronically Signed By: Wisam Lo DR Electronically Signed Date/Time: 06/17/2024 2:34 AM EST [facility] Patient Name: CAROLYN CINTRON : 1945 Exam Date/Time: 06/17/2024 02:17 Procedure: XR FOOT 3+ VIEWS LEFT Ordering Provider: NORIEGA YASMIN Reason For Exam: trauma Clinical history: trauma COMPARISON: None. TECHNIQUE: Left foot, three views FINDINGS: No focal soft tissue abnormalities. Diffuse osteopenia. Hallux valgus alignment. No acute fractures or dislocations. Mild osteoarthritic changes throughout the foot. Small plantar calcaneal spur. [facility] Wally, Wisam Schneider MD - 06/17/2024 Patient Name: [facility]INTRON [facility] 1945 [id number] Exam Date/Time: 06/17/2024 02:17 Procedure: XR FOOT 3+ VIEWS LEFT Ordering Provider: NORIEGA YASMIN Reason For Exam: trauma Clinical history: trauma COMPARISON: None. TECHNIQUE: Left foot, three views FINDINGS: No focal soft tissue abnormalities. Diffuse osteopenia. Hallux valgus alignment. No acute fractures or dislocations. Mild osteoarthritic changes throughout the foot. Small plantar calcaneal spur. IMPRESSION: No acute osseous abnormality of the left foot. Report Dictated on Electronically Signed By: Wisam Lo DR Electronically Signed Date/Time: 06/17/2024 2:34 AM EST [facility] Radiology Study observation (narrative) [facility] Basic Metabolic Profile (BMP )on 06-16-2024 BUN/CRE 19.2 RATIO Normal 10-20 [facility] Comment on above: Performed By: #### L 300.4310, L300.3900, L100.0100, L500.2500 ####[facility] [address] [place], [address] CA,Total 9.4 mg/dL Normal 8.5-10.1 [facility] Comment on above: Performed By: #### L 300.4310, L300.3900, L100.0100, L500.2500 ####[facility] [address] [place], [address] Chloride [Moles/Vol] 108 mmol/L High 98-107 [facility] Comment on above: Performed By: #### L 300.4310, L300.3900, L100.0100, L500.2500 ####[facility] [address] [place], [address] CO2 [Moles/Vol] 25.0 mmol/L Normal 21.0-32.0 [facility] Comment on above: Performed By: #### L 300.4310, L300.3900, L100.0100, L500.2500 ####[facility] [address] [place], [address] Creatinine [Mass/Vol] 1.77 mg/dL High 0.55-1.02 [facility] Comment on above: Result Comment: The validity of the calculated GFR GFRAA in patients over 70 years has not been determined. Clinical correlation is essential. Performed By: #### L 300.4310, L300.3900, L100.0100, L500.2500 ####[facility] [address] [place], [address] ECRCL 29.38 ml/min Normal [facility] Comment on above: Performed By: #### L 300.4310, L300.3900, L100.0100, L500.2500 ####[facility] [address] [place], [address] EST GFR - AA 36 mL/min Low >60 [facility] Comment on above: Result Comment: Afri can Finnish GFR Calc Performed By: #### L 300.4310, L300.3900, L100.0100, L500.2500 ####[facility] [address] [place], [address] GAP 7 Normal 5-15 [facility] Comment on above: Performed By: #### L 300.4310, L300.3900, L100.0100, L500.2500 ####[facility] [address] [place], [address] GFR/1.73 sq M.predicted among non-blacks MDRD (S/P/Bld) [Vol rate/Area] 29 mL/min/{1.73_m2} Low >60 [facility] Comment on above: Result Comment: Non- GFR Calc Performed By: #### L 300.4310, L300.3900, L100.0100, L500.2500 ####[facility] [address] [place], [address] Glucose [Mass/Vol] 166 mg/dL High 74-106 [facility] Comment on above: Result Comment: Fast ing Glucose result greater than or equal to 126 mg/dL suggests DIABETES MELLITUS per A.D.A. criteria. Performed By: #### L 300.4310, L300.3900, L100.0100, L500.2500 ####[facility] [address] [place], [address] Potassium [Moles/Vol] 4.4 mmol/L Normal 3.5-5.1 [facility] Comment on above: Result Comment: Slig ht Hemolysis, Result may be falsely increased. Performed By: #### L 300.4310, L300.3900, L100.0100, L500.2500 ####[facility] [address] [place], [address] Sodium [Moles/Vol] 140 mmol/L Normal 136-145 [facility] Comment on above: Performed By: #### L 300.4310, L300.3900, L100.0100, L500.2500 ####[facility] [address] [place], [address] Urea nitrogen [Mass/Vol] 34 mg/dL High 7-18 [facility] Comment on above: Performed By: #### L 300.4310, L300.3900, L100.0100, L500.2500 ####[facility] [address] [place], [address] CBC W/Diff, Automatedon 12-1 Absolute Lymph 1.80 X10 3/uL Normal 0.83-4.51 [facility] Comment on above: Performed By: #### L 300.4310, L300.3900, L100.0100, L500.2500 ####[facility] [address] [place], [address] Absolute Neut 2.8 X10 3/uL Normal 2.0-7.7 [facility] Comment on above: Performed By: #### L 300.4310, L300.3900, L100.0100, L500.2500 ####[facility] [address] [place], [address] Basophils/100 WBC (Bld) 0.6 % Normal 0-1 [facility] Comment on above: Performed By: #### L 300.4310, L300.3900, L100.0100, L500.2500 ####[facility] [address] [place], [address] Eosinophils/100 WBC (Bld) 3.5 % Normal 0-5 [facility] Comment on above: Performed By: #### L 300.4310, L300.3900, L100.0100, L500.2500 ####[facility] [address] [place], [address] Erythrocyte distribution width (RBC) [Ratio] 14.3 % Normal 11.6-14.6 [facility] Comment on above: Performed By: #### L 300.4310, L300.3900, L100.0100, L500.2500 ####[facility] [address] [place], [address] Hematocrit (Bld) [Volume fraction] 33.9 % Low 37-47 [facility] Comment on above: Performed By: #### L 300.4310, L300.3900, L100.0100, L500.2500 ####[facility] [address] [place], [address] Hemoglobin (Bld) [Mass/Vol] 11.3 g/dL Low 12.0-15.0 [facility] Comment on above: Performed By: #### L 300.4310, L300.3900, L100.0100, L500.2500 ####[facility] [address] [place], [address] IG% 0.600 Normal 0.0-0.9 [facility] Comment on above: Result Comment: IG% - Immature Granulocytes (promyelocytes, myelocytes and metamyelocytes) > 1% indicates that a LEFT SHIFT is Present. Performed By: #### L 300.4310, L300.3900, L100.0100, L500.2500 ####[facility] [address] [place], [address] Lymphocytes/100 WBC (Bld) 33.4 % Normal 19-41 [facility] Comment on above: Performed By: #### L 300.4310, L300.3900, L100.0100, L500.2500 ####[facility] [address] [place], [address] MCH (RBC) [Entitic mass] 32.2 pg High 27.0-32.0 [facility] Comment on above: Performed By: #### L 300.4310, L300.3900, L100.0100, L500.2500 ####[facility] [address] [place], [address] MCHC (RBC) [Mass/Vol] 33.3 g/dL Normal 32-36 [facility] Comment on above: Performed By: #### L 300.4310, L300.3900, L100.0100, L500.2500 ####[facility] [address] [place], [address] MCV (RBC) [Entitic vol] 96.6 fL Normal 81-99 [facility] Comment on above: Performed By: #### L 300.4310, L300.3900, L100.0100, L500.2500 ####[facility] [address] [place], [address] Monocytes/100 WBC (Bld) 9.5 % Normal 0-10 [facility] Comment on above: Performed By: #### L 300.4310, L300.3900, L100.0100, L500.2500 ####[facility] [address] [place], [address] Neutrophils/100 WBC (Bld) 52.4 % Normal 47-70 [facility] Comment on above: Performed By: #### L 300.4310, L300.3900, L100.0100, L500.2500 ####[facility] [address] [place], [address] Nucleated RBC (Bld) [#/Vol] 0 10*3/uL Normal 0-5 [facility] Comment on above: Performed By: #### L 300.4310, L300.3900, L100.0100, L500.2500 ####[facility] [address] [place], [address] Platelet mean volume (Bld) [Entitic vol] 9.6 fL Normal 6.2-12.0 [facility] Comment on above: Performed By: #### L 300.4310, L300.3900, L100.0100, L500.2500 ####[facility] [address] [place], [address] Platelets (Bld) [#/Vol] 198 10*3/uL Normal 150-450 [facility] Comment on above: Performed By: #### L 300.4310, L300.3900, L100.0100, L500.2500 ####[facility] [address] [place], [address] RBC (Bld) [#/Vol] 3.51 10*6/uL Low 4.2-5.4 [facility] Comment on above: Performed By: #### L 300.4310, L300.3900, L100.0100, L500.2500 ####[facility] [address] [place], [address] RDW SD 49.8 fl High 35.1-43.9 [facility] Comment on above: Performed By: #### L 300.4310, L300.3900, L100.0100, L500.2500 ####[facility] [address] [place], [address] WBC (Bld) [#/Vol] 5.4 10*3/uL Normal 4.4-11.0 [facility] Comment on above: Performed By: #### L 300.4310, L300.3900, L100.0100, L500.2500 ####[facility] [address] [place], [address] Dexa Bone Density Studyon Dexa Bone Density Study [facility] [address] [place] [address] Dexa Bone Density Study MR#: [id number] Acct: [id number] Name: CAROLYN CINTRON Rep #: [id number] : 1945 F 78 From: Julio tolbert MD PCP: Dr. Ramón Coulter MD Status: [facility] Study: Dexa Bone Density Study Date of Exam: 06/16/24 Exam# [id number] Ordering Dr: [place] [id number] STUDY: DUAL ENERGY X-RAY ABSORPTIOMETRY / DXA REASON FOR EXAM: Female, 78 years old. Fracture TECHNIQUE: Bone Mineral Density (BMD) measurements of lumbar spine and bilateral hips were obtained. COMPARISON: None. FINDINGS: Lumbar Spine (L1-L4): g/cm2 (1.003) / T-score (0.2) / Z-score (2.7) Findings are suggestive of normal bone density with a low fracture risk. Left Femur Total: g/cm2 (0.779) / T-score (-1.3) / Z-score (0.6) Left Femoral Neck: g/cm2 (0.555) / T-score (-2.7) / Z-score (-0.4) Right Femur Total: g/cm2 (0.752) / T-score (-1.6) / Z-score (0.4) Right Femoral Neck: g/cm2 (0.489) / T-score (-3.2) / Z-score (-1.0) BD/Dexa Bone Density Study IMPRESSION: The patient is considered osteoporotic as outlined below according to World Brayan Organization (WHO) criteria with a high fracture risk. Reference Information: The T-score is the number of standard deviations above or below the standard which is normal for young adults at their peak bone mineral density. The World Health Organization (WHO) interprets the T-scores as follows: Above -1 Normal bone density Between -1 and -2.5 Osteopenia Equal to / or below -2.5 Osteoporosis As a practical clinical guideline, osteopenia may be graded as follows: Mild -1 through -1.5 Moderate -1.6 through -2.0 Severe -2.1 through -2.4 The Z-score is the number of standard deviations above or below age-matched controls. A Z-score of less than -1.5 would be considered abnormal. References: 1. NIH Osteoporosis and Related Bone Diseases www osteo.org 2. International Society for Clinical Densitometry www iscd.org 3. National Osteoporosis Foundation www nof.org Electronically Signed: Julio Moralez MD at 12:47 EST , CC: Dr. Ramón Coulter MD; Dr. Yariel Florez MD Care Management Coordinator: Signed Normal [facility] ED Provider Noteon ED Provider Note Emergency Department Encounter [facility] EMERGENCY DEPT Patient: Carolyn Cintron : 1945 Date of Evaluation: 06/16/2024 ED [facility] Provider: Tyler Paulino PA-C EDcare was supervised by Dr. Noriega who independently examined and evaluated the patient. Please see their attestation note for further details. Chief Complaint Chief Complaint Patient presents with Fall Patient presents to ed via ems for fall at home. Patient transfer from [facility] for right femur fracture. Patient fell down 3 steps. Patient states she did hit her head, denies LOC, denies blood thinner use. Patient A&OX4. Patient was given 1mg dilaudid prior to transport from [place]. Patient c/o right leg pain and left foot pain. [place] I was wearing a N95, Surgical mask for the entirety of this encounter. Carolyn Cintron is a 78 y.o. female who presents to the emergency department for evaluation of a periprosthetic right distal femur fracture that was diagnosed at [facility]. She reports that she was walking on the stairs today, her legs gave out, fell down 3 steps, hit her head but did not lose consciousness, on aspirin however, no head or neck pain per patient. Sustained right lower leg/knee pain, diagnosed with a periprosthetic right distal femur fracture. Transferred here for orthopedic consultation. Had a right knee replacement done [address] William. Limitations to history: None Outside historians: None Past History No past medical history on file. No past surgical history on file. Social History Socioeconomic History Marital status: Social Drivers of Health Food Insecurity: No Food Insecurity (03/24/2024) Received from [facility] Hunger Vital Sign Worried About Running Out of Food in the Last Year: Never true Ran Out of Food in the Last Year: Never true Transportation Needs: No Transportation Needs (04/12/2024) Received from [facility] OASIS A1250: Transportation Lack of Transportation (Medical): No Lack of Transportation (Non-Medical): No Patient Unable or Declines to Respond: No Intimate Partner Violence: Not At Risk (03/24/2024) Received from [facility] Humiliation, Afraid, Rape, and Kick questionnaire Fear of Current or Ex-Partner: No Emotionally Abused: No Physically Abused: No Sexually Abused: No Housing Stability: Low Risk (03/24/2024) Received from [facility] Housing Stability Vital Sign Unable to Pay for Housing in the Last Year: No Number of Times Moved in the Last Year: 1 Homeless in the Last Year: No Medications/Allergies Previous Medications No medications on file Not on File Physical Exam BP 116/63 Pulse 63 Temp 37.2 ?C (98.9 ?F) (Oral) Resp 18 Ht 1.575 m (5' 2) Wt 86.6 kg (191 lb) SpO2 97% BMI 34.93 kg/m? Physical Exam GENERAL APPEARANCE: Awake and alert. Cooperative. HEENT: Normocephalic. Atraumatic. No trismus. NECK: Supple. Trachea midline. CARDIO: Normal rate and rhythm. Radial pulses symmetrical and palpable LUNGS: Respirations unlabored. CTAB. ABDOMEN: Soft. Non-distended. Non-tender throughout. MUSCULOSKELETAL: Right lower extremity placed in a Velcro knee immobilizer. Normal sensation and pulses to the lower extremities. SKIN: Warm and dry. NEUROLOGICAL: No gross facial drooping. No obvious neurologic deficits. Moves all 4 extremities spontaneously. SCREENINGS D Labs: Results for orders placed or performed during the hospital encounter of 06/16/24 ECG 12 lead Collection Time: 06/17/24 1:55 AM Result Value Ref Range Heart Rate 66 bpm QRSD Interval 104 ms QT Interval 430 ms QTC Interval 452 ms P Adger 0 degrees QRS Adger 72 degrees T Wave Adger 62 degrees IA Interval 0 ms Radiographs: XR foot 3+ views left Final Result No acute osseous abnormality of the left foot. Report Dictated on Electronically Signed By: Wisam Lo DR Electronically Signed Date/Time: 06/17/2024 2:34 AM EST XR chest 1 view Final Result No acute consolidative process. Report Dictated on Electronically Signed By: Wisam Lo DR Electronically Signed Date/Time: 06/17/2024 2:[address] lower extremity right wo IV contrast Final Result Displaced fracture of the distal right femoral diaphysis. Report Dictated on Electronically Signed By: Wisam Lo DR Electronically Signed Date/Time: 06/17/2024 12:[address] head wo IV contrast Final Result COMBINED IMPRESSION: 1. No acute intracranial hemorrhage or territorial infarct. 2. No acute osseous injury of the cervical spine. Reversal of normal cervical lordosis with mild multilevel degenerative changes. Report Dictated on Electronically Signed By: Wisam Lo DR Electronically Signed Date/Time: 06/17/2024 1:[address] cervical spine wo IV contrast Final Result COMBINED IMPRESSION: 1. No acute intracrani (more content not included)... Normal [facility] ED Provider Note Emergency Department Encounter [facility] EMERGENCY DEPT Patient: Carolyn Cintron : 1945 Date of Evaluation: 06/16/2024 ED Supervising Physician: Ashly Noriega MD I personally evaluated Carolyn Cintron and made/approved the management plan and take responsibility for the patient management. This will serve as my Supervisory note and shared attestation. I did perform a substantive portion of the visit including all aspects of the Medical Decision Making. I wore appropriate PPE for the entirety of this encounter. In brief, Carolyn Cintron is a 78 y.o. that presents to the emergency department after a fall. Patient had a mechanical fall at home where she fell down 3 steps. She did hit her head no loss of consciousness and is on aspirin. She went to an outside hospital where she was diagnosed with a periprosthetic right distal femur fracture. Placed in a knee immobilizer and came here for orthopedic surgery evaluation. Focused exam: Well-appearing female in no acute distress. Vital signs reviewed and unremarkable. It is normocephalic and atraumatic. No midline C-spine tenderness. No increased work of breathing. Lungs are to auscultation bilaterally. Right lower extremity is in a knee immobilizer. 2+ DP pulses bilaterally. Brief ED course/MDM: 70-year-old female presenting after mechanical fall from outside hospital. She is afebrile hemodynamically stable. Found to have a distal femur fracture that is periprosthetic on the right lower extremity. She did state that she hit her head and is on aspirin so we got a CT scan of her head and C-spine with these are unremarkable. Orthopedics came to evaluate the patient and got a CT image of her right lower extremity. Plan will be for them to take her to the OR tomorrow. Patient medically admitted for further care. Admitted in stable condition. Diagnostics interpreted by me: I personally discussed the patient's management with other clinicians: All diagnostic, treatment, and disposition decisions were made by myself in conjunction with the ROSANNE. For all further details of the patient's emergency department visit, please see their documentation. (Comment: Please note this report has been produced using speech recognition software and may contain errors related to that system including errors in grammar, punctuation, and spelling, as well as words and phrases that may be inappropriate. If there are any questions or concerns please feel free to contact the dictating provider for clarification.) Ashly Noriega MD [employer] Ashly Noriega MD 06/17/24 0315 [facility] Emergency Department Summary on 06-16-2024 Emergency Department Summary [facility] Medical Records Department [address] [place] [address] Emergency Department Summary 06/16/24 MR#: [id number] Acct: [id number] Name: CAROLYN CINTRON Rep #: [id number] : 1945 78 From: Roosevelt Lee DO PCP: Dr. Ramnó Coulter MD Status:[facility] ER Location: ED HPI History of Present Illness Chief Complaint: Fall Informant: patient and EMS Narrative Narrative: 78-year-old female presenting to the emergency room with right knee pain. Patient states she was going down the stairs and she missed the last step falling. She believe her knee twisted. She notes pain only in the knee. She denies any other injuries. She states she is not on a blood thinner. She had the knee replaced about 20 years ago in [place] and the surgeon has since retired. Patient received fentanyl by EMS both intramuscular and IV. [facility] Medical History Osteopenia determined by x-ray Bilateral pseudophakia Amblyopia of left eye Dry eye syndrome of bilateral lacrimal glands Acute allergic conjunctivitis of both eyes Hypertriglyceridemia Encounter for long-term (current) insulin use Shingles Thyroid disease Skin cancer High cholesterol Gout Diabetes type 2, controlled Back problem Seasonal allergies Home Medications ???Medication ???Instructions ???Recorded ???Last Taken ???Type pantoprazole 40 mg tablet,delayed 40 mg PO QDAY 07/15/17 Unknown History release insulin syringe-needle U-100 0.3 #350 ea 07/17/17 Unknown Rx mL 31 gauge x 5/16 (BD Insulin Syringe Ultra-Fine) pen needle, diabetic 32 gauge x #350 ea 02/19/18 Unknown Rx 5/32 (BD Ultra-Fine Christy Pen Needle) cholecalciferol (vitamin D3) 25 1,000 unit PO DAILY 06/23/18 Unknown History mcg (1,000 unit) capsule aspirin 81 mg tablet,delayed 81 mg PO DAILY 07/24/20 Unknown History release mecobalamin (vitamin B12) 1,000 1,000 mcg PO DAILY 07/24/20 Unknown History mcg chewable tablet blood sugar diagnostic #100 ea 12/18/20 Unknown Rx icosapent ethyl 1 gram capsule 2 g (2 x 1 gram) PO BID #120 caps 11/05/21 Unknown Rx (Vascepa) omega-3 fatty acids 1,000 mg 1,000 mg PO BID 01/23/23 Unknown History capsule polyethylene glycol 3350 17 4 g PO DAILY PRN 01/23/23 Unknown History gram/dose oral powder (Miralax) tramadol 25 mg tablet 25 mg PO BID PRN 09/01/23 Unknown History flash glucose sensor (FreeStyle #2 ea 10/02/23 Unknown Rx Nomi 2 Sensor kit) furosemide 20 mg tablet 20 mg PO QDAY #90 tabs 10/13/23 Unknown Rx metoprolol succinate 50 mg 25 mg (1/2 x 50 mg) PO BID #180 10/13/23 Unknown Rx tablet,extended release 24 hr tabs Novolog FlexPen U-100 Insulin 100 40 unit (0.4 mL) subcut TID #48 mL 01/01/24 Unknown Rx unit/mL (3 mL) subcutaneous (insulin aspart U-100) fluticasone propionate 50 1 spray intranasal DAILY PRN 01/01/24 Unknown History mcg/actuation nasal spray,suspension lisinopril 10 mg tablet 10 mg PO DAILY #90 tabs 01/23/24 Unknown Rx insulin degludec 200 unit/mL (3 55 unit subcut QHS 02/20/24 Unknown History mL) subcutaneous pen (Tresiba FlexTouch U-200 insulin) montelukast 10 mg tablet 10 mg PO DAILY #90 tabs 04/05/24 Unknown Rx blood sugar diagnostic (OneTouch #100 ea 04/09/24 Unknown Rx Ultra Test strips) loratadine 10 mg tablet 10 mg PO DAILY PRN for allergies 04/09/24 Unknown Rx #90 TABLETS potassium chloride 20 mEq 20 meq PO QDAY #90 tabs 04/09/24 Unknown Rx tablet,extended release(part/cryst) (Klor-Con M) Saccharomyces boulardii 250 mg 250 mg PO BID 04/14/24 Unknown History capsule (Florastor) allopurinol 300 mg tablet 300 mg PO DAILY #90 tabs 04/14/24 Unknown Rx fenofibrate micronized 134 mg 134 mg PO DAILY #90 caps 04/14/24 Unknown Rx capsule levothyroxine 112 mcg tablet 112 mcg PO DAILY #90 tabs 04/14/24 Unknown Rx rosuvastatin 20 mg tablet 20 mg PO QDAY #90 tabs 04/14/24 Unknown Rx trazodone 50 mg tablet 50 mg PO QHS PRN insomnia #90 tabs 04/14/24 Unknown Rx vancomycin 125 mg capsule 125 mg PO 4X/DAY 04/14/24 Unknown History Jardiance 25 mg tablet 25 mg PO QAM #90 tabs 05/13/24 Unknown Rx (empagliflozin) blood-glucose meter,continuous #1 ea 05/13/24 Unknown Rx (FreeStyle Nomi 3 [place]) blood-glucose sensor (FreeStyle #6 ea 05/13/24 Unknown Rx Nomi 3 Plus Sensor device) pen needle, diabetic 32 gauge x #150 ea 06/14/24 Unknown Rx (BD Ultra-Fine Christy Pen Needle) Allergy/AdvReac Type Severity Reaction Status Date / Time Sulfa (Sulfonamide AdvReac Severe Upset Verified 06/16/24 18:13 Antibiotics) Stomach Penicillins AdvReac Intermediate Diarrhea Verified 06/16/24 18:13 cephalexin (From Keflex) AdvReac Nausea/Vom/ Verified 06/16/24 18:13 Diarrhea Family History (Reviewed 06/16/24 (more content not included)... Normal [facility] Knee 1 or 2 Viewson 06-16-20 Knee 1 or 2 Views [facility] [address] [place], [place] [address] Knee 1 or 2 Views MR#: [id number] Acct: [id number] Name: CAROLYN CINTRON Rep #: [id number] : 1945 F 78 From: Alexei hawkins DO PCP: Dr. Ramón Coulter MD Status: REG ER Study: Knee 1 or 2 Views Date of Exam: 06/16/24 Exam# [id number] Ordering Dr: [place] [id number] EXAM: XR RIGHT KNEE, 1 OR 2 VIEWS CLINICAL INDICATION: injury pain. TECHNIQUE: Frontal and/or lateral views of the right knee. COMPARISON: No relevant prior studies available. FINDINGS: BONES/JOINTS: Periprosthetic fracture of the distal femoral metadiaphysis with moderate displacement. Status post total knee arthroplasty. No sclerotic or destructive changes observed. SOFT TISSUES: Periarticular soft tissue swelling. No radiopaque foreign body. VASCULATURE: Vascular calcifications. RAD/Knee 1 or 2 Views IMPRESSION: Periprosthetic fracture of the distal femoral metadiaphysis with moderate displacement. Status post total knee arthroplasty. Electronically Signed: Alexei Radford DO at 20:13 EST , CC: Dr. Ramón Coulter MD; Dr. Roosevelt Lee DO Care Management Coordinator: Signed Normal [facility] Partial Thromboplast Timeon 06-16-2024 aPTT Coag (Bld) [Time] 27.2 s Normal 24.1-36.2 [facility] Comment on above: Performed By: #### L 300.4310, L300.3900, L100.0100, L500.2500 ####[facility] [id number] [place], [address] Prothrombin Time w/INRon INR Coag (PPP) [Relative time] 1.1 {INR} Normal [facility] Comment on above: Performed By: #### L 300.4310, L300.3900, L100.0100, L500.2500 ####[facility] [id number] [place], [address] PT Coag (PPP) [Time] 14.0 s Normal 11.7-14.9 [facility] Comment on above: Performed By: #### L 300.4310, L300.3900, L100.0100, L500.2500 ####[facility] [id number] [place], [address] XR SHOULDER RIGHT 1 VIEWon 1 08-09-2023 XR SHOULDER RIGHT 1 VIEW EXAMINATION: XR SHOULDER RIGHT 1 VIEW HISTORY: Humeral head fracture, right, closed, initial encounter COMPARISON: 05/10/2024 IMPRESSION: FINDINGS/ 1. Moderate degeneration of the lower cervical spine disc spaces. 2. Normal alignment of the right acromioclavicular joint. 3. Sclerosis of the right proximal humerus, consistent with healing fracture. 4. Visualized portion of the right lung is clear. Workstation ID: [id number] Dictated by: RICHARD GUERRERO on FriJun 09, 2024 11:09:20 AM EST Transcribed by: RICHARD GUERRERO on FriJun 09, 2024 11:09:20 AM EST Finalized by: RICHARD GUERRERO on FriJun 09, 2024 11:09:20 AM EST Normal [facility] Comment on above: Order Comment: [facility] has implemented the eGFR calculation approach that does not have a coefficient for race that conforms to the NKF-ASN Task Force Recommendations. Spine Lumbar (Routine)on Spine Lumbar (Routine) [facility] [address] [place], [place] [address] Spine Lumbar (Routine) MR#: [id number] Acct: [id number] Name: CAROLYN CINTRON Rep #: [id number] : 1945 F 78 From: Shahana Schmitt PCP: Dr. Ramón Coulter MD Status: REG CLI Study: Spine Lumbar (Routine) Date of Exam: 05/24/24 Exam# [id number] Ordering Dr: [place] [id number] INDICATION: RADICULOPATHY, LOWER BACK PAIN EXAMINATION: MRI - MR Spine Lumbar W/O Contrast TECHNIQUE: Multiplanar and multisequence MR images of the lumbar spine. IV Contrast Dosage and Agent: None. COMPARISON: 08/07/2020. FINDINGS: VERTEBRAE: Vertebral body heights are preserved. Normal vertebral bodies and posterior elements. VERTEBRAL ALIGNMENT: 5 mm degenerative retrolisthesis at L2-3. CORD: Normal position and signal intensity of the conus medullaris. Endplate spondylosis. Circumferential disc bulge. Degenerative changes of the bilateral facet joints. Central canal and bilateral intervertebral neural foraminal narrowing. L1/L2: Mild narrowing of the spinal canal. Normal bilateral neuroforamina. L2/L3: Severe spinal canal and moderate bilateral neural foraminal narrowing. L3/L4: Postsurgical changes. There is no significant narrowing of the spinal canal or neural foramina. There is fluid collection posterior to the laminectomy site measures 3 x 1.4 x 2 cm most likely represent a seroma. L4/L5: Postsurgical changes. No significant stenosis of the spinal canal, lateral recesses and neuroforamina. L5/S1: Severe narrowing of the bilateral neuroforamina. SOFT TISSUES: Multilevel degenerative spondylosis. Severe spinal canal stenosis at L2-3 is worse since the previous study from 08/07/2020. MRI/Spine Lumbar (Routine) IMPRESSION: Unremarkable MRI of the lumbar spine. Electronically Signed: Shahana Pang MD at 6:13 EST , CC: Dr. Ramón Coulter MD; Dr. Leonie Loja MD Care Management Coordinator: Signed Normal [facility] ECG 12 leadOrdered By: Noemi a Day on 05-19-2024 Atrial Rate [facility] Work Phone: P Adger [facility] Work Phone: P-R Interval [facility] Work Phone: Q-T Interval [facility] Work Phone: Q-T Interval (corrected) [facility] Work Phone: QRS Duration [facility] Work Phone: QTC Calculation (Bezet) [facility] Work Phone: R Adger [facility] Work Phone: T Adger [facility] Work Phone: Ventricular Rate [facility] Work Phone: [facility] Work Phone: CDIFF (PCR)on 05-13-2024 CDIFF Pending [phone] [id number] Presumptive Negative *for epidemiolologic???use C. Diff PCR Negative- No toxigenic C. Diff Detected Normal [facility] Comment on above: Performed By: #### M 100.6796 ####[facility] [address] [place], [place], [address] Endocrinology Visit Reporton 05-13-2024 Endocrinology Visit Report [facility] [address] [place] [address] OFFICE VISIT Date of Service: 05/13/24 MR#: [id number] Acct: [id number] Name: CAROLYN CINTRON Koko Rep #: [id number] : 1945 Provider: Koko Barkley Age/Sex: 78/F Location: [facility] Status: Signed Intake Vital Signs 01/01/24 10:28 04/14/24 13:00 05/13/24 11:25 Height 5 ft 5 in 5 ft 3 in 5 ft 3 in Weight: 193 lb BMI 34.2 BP 127/69 H Blood Pressure Location Lt radial Position Sitting Pulse 68 Pulse Source Monitor Pulse Oximetry (%) 95 Oxygen Delivery Method room air Intake Visit Reasons: 4 M FU Chief Complaint: DM Is patient in pain?: Yes (back pain ) Pain scale (1-10): 5 Allergies Sulfa (Sulfonamide Antibiotics) Adverse Reaction (Severe, Verified 05/13/24 11:27) Upset Stomach Penicillins Adverse Reaction (Intermediate, Verified 05/13/24 11:27) Diarrhea cephalexin (From Keflex) Adverse Reaction (Verified 05/13/24 11:27) Nausea/Vom/Diarrhea Medications ???Medication ???Instructions ???Recorded ???Confirmed ???Type pantoprazole 40 mg tablet,delayed 40 mg PO QDAY 07/15/17 05/13/24 History release insulin syringe-needle U-100 0.3 #350 ea 07/17/17 05/13/24 Rx mL 31 gauge x 5/16 (BD Insulin Syringe Ultra-Fine) pen needle, diabetic 32 gauge x #350 ea 02/19/18 05/13/24 Rx 5/32 (BD Ultra-Fine Christy Pen Needle) cholecalciferol (vitamin D3) 25 1,000 unit PO DAILY 06/23/18 05/13/24 History mcg (1,000 unit) capsule aspirin 81 mg tablet,delayed 81 mg PO DAILY 07/24/20 05/13/24 History release mecobalamin (vitamin B12) 1,000 1,000 mcg PO DAILY 07/24/20 05/13/24 History mcg chewable tablet blood sugar diagnostic #100 ea 12/18/20 05/13/24 Rx icosapent ethyl 1 gram capsule 2 g (2 x 1 gram) PO BID #120 caps 11/05/21 05/13/24 Rx (Vascepa) omega-3 fatty acids 1,000 mg 1,000 mg PO BID 01/23/23 05/13/24 History capsule polyethylene glycol 3350 17 4 g PO DAILY PRN 01/23/23 05/13/24 History gram/dose oral powder (Miralax) pen needle, diabetic 32 gauge x #150 ea 05/05/23 05/13/24 Rx 5/32 (BD Ultra-Fine Christy Pen Needle) tramadol 25 mg tablet 25 mg PO BID PRN 09/01/23 05/13/24 History flash glucose sensor (FreeStyle #2 ea 10/02/23 05/13/24 Rx Nomi 2 Sensor kit) furosemide 20 mg tablet 20 mg PO QDAY #90 tabs 10/13/23 05/13/24 Rx metoprolol succinate 50 mg 25 mg (1/2 x 50 mg) PO BID #180 10/13/23 05/13/24 Rx tablet,extended release 24 hr tabs Novolog FlexPen U-100 Insulin 100 40 unit (0.4 mL) subcut TID #48 mL 01/01/24 05/13/24 Rx unit/mL (3 mL) subcutaneous (insulin aspart U-100) fluticasone propionate 50 1 spray intranasal DAILY PRN 01/01/24 05/13/24 History mcg/actuation nasal spray,suspension lisinopril 10 mg tablet 10 mg PO DAILY #90 tabs 01/23/24 05/13/24 Rx insulin degludec 200 unit/mL (3 55 unit subcut QHS 02/20/24 05/13/24 History mL) subcutaneous pen (Tresiba FlexTouch U-200 insulin) montelukast 10 mg tablet 10 mg PO DAILY #90 tabs 04/05/24 05/13/24 Rx blood sugar diagnostic (OneTouch #100 ea 04/09/24 05/13/24 Rx Ultra Test strips) loratadine 10 mg tablet 10 mg PO DAILY PRN for allergies 04/09/24 05/13/24 Rx #90 TABLETS potassium chloride 20 mEq 20 meq PO QDAY #90 tabs 04/09/24 05/13/24 Rx tablet,extended release(part/cryst) (Klor-Con M) Saccharomyces boulardii 250 mg 250 mg PO BID 04/14/24 05/13/24 History capsule (Florastor) allopurinol 300 mg tablet 300 mg PO DAILY #90 tabs 04/14/24 05/13/24 Rx fenofibrate micronized 134 mg 134 mg PO DAILY #90 caps 04/14/24 05/13/24 Rx capsule levothyroxine 112 mcg tablet 112 mcg PO DAILY #90 tabs 04/14/24 05/13/24 Rx rosuvastatin 20 mg tablet 20 mg PO QDAY #90 tabs 04/14/24 05/13/24 Rx trazodone 50 mg tablet 50 mg PO QHS PRN insomnia #90 tabs 04/14/24 05/13/24 Rx vancomycin 125 mg capsule 125 mg PO 4X/DAY 04/14/24 05/13/24 History Jardiance 25 mg tablet 25 mg PO QAM #90 tabs 05/13/24 05/13/24 Rx (empagliflozin) blood-glucose meter,continuous #1 ea 05/13/24 05/13/24 Rx (FreeStyle Nomi 3 [place]) blood-glucose sensor (FreeStyle #6 ea 05/13/24 05/13/24 Rx Nomi 3 Plus Sensor device) Have you fallen in the past year?: Yes (March) [facility] Medical History Osteopenia determined by x-ray Bilateral pseudophakia Amblyopia of left eye Dry eye syndrome of bilateral lacrimal glands Acute allergic conjunctivitis of both eyes Hypertriglyceridemia Encounter for long-term (current) insulin use Shingles Thyroid disease Skin cancer High cholesterol Gout Diabetes type 2, controlled Back problem Seasonal allergies Surgical History Status pos (more content not included)... Normal [facility] XR SHOULDER RIGHT 1 VIEWon 1 07-10-2023 XR SHOULDER RIGHT 1 VIEW EXAMINATION: XR SHOULDER RIGHT 1 VIEW HISTORY: ORDERING SYSTEM PROVIDED HISTORY: fx, TECHNOLOGIST PROVIDED HISTORY: Injury/Trauma Reason for exam: 6 week f/u Cancer History: . Surgery, RadiationHistory: . Encounter Type: Subsequent/Follow-up Mechanism of injury: fall ORDERING SYSTEM PROVIDED DIAGNOSIS CODES: R52 Pain COMPARISON: Right shoulder: 04/06/2024 FINDINGS: AP view. There is a comminuted displaced right proximal humeral fracture with a component passing through the surgical neck and also a component of the greater trochanter. There is interval callus formation. Glenohumeral and acromioclavicular joints are anatomically aligned. There are moderate degenerative changes in the AC joint and glenohumeral joint. Soft tissues are within normal limits. IMPRESSION: Stable alignment of a comminuted right proximal humeral fracture since 04/06/2024 with interval healing which remains incomplete. Workstation ID: [id number] Dictated by: CRICKET KELLY on FriMay 11, 2024 11:54:42 AM EST Transcribed by: CRICKET KELLY on FriMay 11, 2024 11:54:42 AM EST Finalized by: CRICKET KELLY on FriMay 11, 2024 11:54:42 AM EST Normal [facility] Comment on above: Order Comment: Injur y/Trauma or Illness?:Injury/Trauma How long have you had these symptoms (acute/chronic)?:Acute Reason for exam?:6 week f/u History of cancer?:. Surgeries, chemotherapy, or radiation?:. Type of Exam?:Subsequent/Follow-up Mechanism of injury?:fall CBC W/Diff, Automatedon 10-0 -2023 Absolute Lymph 2.09 X10 3/uL Normal 0.83-4.51 [facility] Comment on above: Performed By: #### L 500.4050, L500.4100, L501.9520, L100.0100, L502.0250 ####[facility] [address] [place], [address] Absolute Neut 5.3 X10 3/uL Normal 2.0-7.7 [facility] Comment on above: Performed By: #### L 500.4050, L500.4100, L501.9520, L100.0100, L502.0250 ####[facility] [address] [place], [address] Basophils/100 WBC (Bld) 0.8 % Normal 0-1 [facility] Comment on above: Performed By: #### L 500.4050, L500.4100, L501.9520, L100.0100, L502.0250 ####[facility] [address] [place], [address] Eosinophils/100 WBC (Bld) 2.9 % Normal 0-5 [facility] Comment on above: Performed By: #### L 500.4050, L500.4100, L501.9520, L100.0100, L502.0250 ####[facility] [address] [place], [address] Erythrocyte distribution width (RBC) [Ratio] 14.8 % High 11.6-14.6 [facility] Comment on above: Performed By: #### L 500.4050, L500.4100, L501.9520, L100.0100, L502.0250 ####[facility] [address] [place], [address] Hematocrit (Bld) [Volume fraction] 35.6 % Low 37-47 [facility] Comment on above: Performed By: #### L 500.4050, L500.4100, L501.9520, L100.0100, L502.0250 ####[facility] [address] [place], [address] Hemoglobin (Bld) [Mass/Vol] 11.1 g/dL Low 12.0-15.0 [facility] Comment on above: Performed By: #### L 500.4050, L500.4100, L501.9520, L100.0100, L502.0250 ####[facility] [address] [place], [address] IG% 1.300 High 0.0-0.9 [facility] Comment on above: Result Comment: IG% - Immature Granulocytes (promyelocytes, myelocytes and metamyelocytes) > 1% indicates that a LEFT SHIFT is Present. Performed By: #### L 500.4050, L500.4100, L501.9520, L100.0100, L502.0250 ####[facility] [address] [place], [address] Lymphocytes/100 WBC (Bld) 24.9 % Normal 19-41 [facility] Comment on above: Performed By: #### L 500.4050, L500.4100, L501.9520, L100.0100, L502.0250 ####[facility] [address] [place], [address] MCH (RBC) [Entitic mass] 31.3 pg Normal 27.0-32.0 [facility] Comment on above: Performed By: #### L 500.4050, L500.4100, L501.9520, L100.0100, L502.0250 ####[facility] [address] [place], [address] MCHC (RBC) [Mass/Vol] 31.2 g/dL Low 32-36 [facility] Comment on above: Performed By: #### L 500.4050, L500.4100, L501.9520, L100.0100, L502.0250 ####[facility] [address] [place], [address] MCV (RBC) [Entitic vol] 100.3 fL High 81-99 [facility] Comment on above: Performed By: #### L 500.4050, L500.4100, L501.9520, L100.0100, L502.0250 ####[facility] [address] [place], [address] Monocytes/100 WBC (Bld) 6.5 % Normal 0-10 [facility] Comment on above: Performed By: #### L 500.4050, L500.4100, L501.9520, L100.0100, L502.0250 ####[facility] [address] [place], [address] Neutrophils/100 WBC (Bld) 63.6 % Normal 47-70 [facility] Comment on above: Performed By: #### L 500.4050, L500.4100, L501.9520, L100.0100, L502.0250 ####[facility] [address] [place], [address] Nucleated RBC (Bld) [#/Vol] 0 10*3/uL Normal 0-5 [facility] Comment on above: Performed By: #### L 500.4050, L500.4100, L501.9520, L100.0100, L502.0250 ####[facility] [address] [place], [address] Platelet mean volume (Bld) [Entitic vol] 8.8 fL Normal 6.2-12.0 [facility] Comment on above: Performed By: #### L 500.4050, L500.4100, L501.9520, L100.0100, L502.0250 ####[facility] [address] [place], [address] Platelets (Bld) [#/Vol] 343 10*3/uL Normal 150-450 [facility] Comment on above: Performed By: #### L 500.4050, L500.4100, L501.9520, L100.0100, L502.0250 ####[facility] [address] [place], [address] RBC (Bld) [#/Vol] 3.55 10*6/uL Low 4.2-5.4 [facility] Comment on above: Performed By: #### L 500.4050, L500.4100, L501.9520, L100.0100, L502.0250 ####[facility] [address] [place], [address] RDW SD 54.6 fl High 35.1-43.9 [facility] Comment on above: Performed By: #### L 500.4050, L500.4100, L501.9520, L100.0100, L502.0250 ####[facility] [address] [place], [address] WBC (Bld) [#/Vol] 8.4 10*3/uL Normal 4.4-11.0 [facility] Comment on above: Performed By: #### L 500.4050, L500.4100, L501.9520, L100.0100, L502.0250 ####[facility] [address] [place], [address] Comprehensive Metabolic [facility] ilon 04-14-2024 Albumin [Mass/Vol] 3.3 g/dL Normal 3.2-5.0 [facility] Comment on above: Performed By: #### L 500.4050, L500.4100, L501.9520, L100.0100, L502.0250 ####[facility] [address] [place], [address] Albumin/Globulin [Mass ratio] 0.8 {ratio} Low 0.9-2.4 [facility] Comment on above: Performed By: #### L 500.4050, L500.4100, L501.9520, L100.0100, L502.0250 ####[facility] [address] [place], [address] ALK P 89 U/L Normal 45-117 [facility] Comment on above: Performed By: #### L 500.4050, L500.4100, L501.9520, L100.0100, L502.0250 ####[facility] [address] [place], [address] ALT [Catalytic activity/Vol] 23 U/L Normal 13-56 [facility] Comment on above: Performed By: #### L 500.4050, L500.4100, L501.9520, L100.0100, L502.0250 ####[facility] [address] [place], [address] AST [Catalytic activity/Vol] 31 U/L Normal 15-37 [facility] Comment on above: Performed By: #### L 500.4050, L500.4100, L501.9520, L100.0100, L502.0250 ####[facility] [address] [place], [address] Bilirubin [Mass/Vol] 0.30 mg/dL Normal 0.20-1.00 [facility] Comment on above: Result Comment: For patients on eltrombopag therapy, use of Dimension Lagrange TBIL is not recommended. Performed By: #### L 500.4050, L500.4100, L501.9520, L100.0100, L502.0250 ####[facility] [address] [place], [address] BUN/CRE 20.1 RATIO High 10-20 [facility] Comment on above: Performed By: #### L 500.4050, L500.4100, L501.9520, L100.0100, L502.0250 ####[facility] [address] [place], [address] CA,Total 9.8 mg/dL Normal 8.5-10.1 [facility] Comment on above: Performed By: #### L 500.4050, L500.4100, L501.9520, L100.0100, L502.0250 ####[facility] [address] [place], [address] Chloride [Moles/Vol] 104 mmol/L Normal 98-107 [facility] Comment on above: Performed By: #### L 500.4050, L500.4100, L501.9520, L100.0100, L502.0250 ####[facility] [address] [place], [address] CO2 [Moles/Vol] 25.0 mmol/L Normal 21.0-32.0 [facility] Comment on above: Performed By: #### L 500.4050, L500.4100, L501.9520, L100.0100, L502.0250 ####[facility] [address] [place], [address] Creatinine [Mass/Vol] 1.44 mg/dL High 0.55-1.02 [facility] Comment on above: Result Comment: The validity of the calculated GFR GFRAA in patients over 70 years has not been determined. Clinical correlation is essential. Performed By: #### L 500.4050, L500.4100, L501.9520, L100.0100, L502.0250 ####[facility] [address] [place], [address] EST GFR - AA 45 mL/min Low >60 [facility] Comment on above: Result Comment: Afri can Finnish GFR Calc Performed By: #### L 500.4050, L500.4100, L501.9520, L100.0100, L502.0250 ####[facility] [address] [place], [address] GAP 8 Normal 5-15 [facility] Comment on above: Performed By: #### L 500.4050, L500.4100, L501.9520, L100.0100, L502.0250 ####[facility] [address] [place], [address] GFR/1.73 sq M.predicted among non-blacks MDRD (S/P/Bld) [Vol rate/Area] 37 mL/min/{1.73_m2} Low >60 [facility] Comment on above: Result Comment: Non- GFR Calc Performed By: #### L 500.4050, L500.4100, L501.9520, L100.0100, L502.0250 ####[facility] [address] [place], [address] Globulin (S) [Mass/Vol] 4.3 g/dL High 2.2-4.2 [facility] Comment on above: Performed By: #### L 500.4050, L500.4100, L501.9520, L100.0100, L502.0250 ####[facility] [address] [place], [address] Glucose [Mass/Vol] 217 mg/dL High 74-106 [facility] Comment on above: Result Comment: Gluc ose result greater than or equal to 200 mg/dL suggests DIABETES MELLITUS per A.D.A. criteria. Performed By: #### L 500.4050, L500.4100, L501.9520, L100.0100, L502.0250 ####[facility] [address] [place], [address] Potassium [Moles/Vol] 4.5 mmol/L Normal 3.5-5.1 [facility] Comment on above: Performed By: #### L 500.4050, L500.4100, L501.9520, L100.0100, L502.0250 ####[facility] [address] [place], [address] Sodium [Moles/Vol] 137 mmol/L Normal 136-145 [facility] Comment on above: Performed By: #### L 500.4050, L500.4100, L501.9520, L100.0100, L502.0250 ####[facility] [address] [place], [address] T PROT 7.6 g/dL Normal 6.4-8.2 [facility] Comment on above: Performed By: #### L 500.4050, L500.4100, L501.9520, L100.0100, L502.0250 ####[facility] [address] [place], [address] Urea nitrogen [Mass/Vol] 29 mg/dL High 7-18 [facility] Comment on above: Performed By: #### L 500.4050, L500.4100, L501.9520, L100.0100, L502.0250 ####[facility] [address], [address] Internal Medicine Office Vis yaneth 04-14-2024 Internal Medicine Office Visit [facility] [address] [place] [address] [place] [address] OFFICE VISIT Date of Service: 04/14/24 MR#: [id number] Acct: [id number] Name: CAROLYN CINTRON Rep #: [id number] : 1945 Provider: GERRI Fraser Age/Sex: 78/F Location: [facility] [place] [facility] Status: Signed Intake Vital Signs 01/12/24 13:10 02/20/24 10:58 04/14/24 13:00 Height 5 ft 5 in 5 ft 3 in 5 ft 3 in Weight: 195 lb BMI 34.5 BP 122/64 H Blood Pressure Location Lt brachial Position Sitting Respiration 16 Pulse 77 Pulse Source Monitor Temp 97.1 F L Temp Source Temporal Pulse Oximetry (%) 97 Oxygen Delivery Method room air Intake Visit Reasons: 3 M 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 Accompanied by: Is patient in pain?: No Allergies Sulfa (Sulfonamide Antibiotics) Adverse Reaction (Severe, Verified 04/14/24 12:46) Upset Stomach cephalexin (From Keflex) Adverse Reaction (Verified 04/14/24 12:46) Nausea/Vom/Diarrhea Medications ???Medication ???Instructions ???Recorded ???Confirmed ???Type pantoprazole 40 mg tablet,delayed 40 mg PO QDAY 07/15/17 04/14/24 History release insulin syringe-needle U-100 0.3 #350 ea 07/17/17 04/14/24 Rx mL 31 gauge x 5/16 (BD Insulin Syringe Ultra-Fine) pen needle, diabetic 32 gauge x #350 ea 02/19/18 04/14/24 Rx 5/32 (BD Ultra-Fine Christy Pen Needle) cholecalciferol (vitamin D3) 25 1,000 unit PO DAILY 06/23/18 04/14/24 History mcg (1,000 unit) capsule aspirin 81 mg tablet,delayed 81 mg PO DAILY 07/24/20 04/14/24 History release mecobalamin (vitamin B12) 1,000 1,000 mcg PO DAILY 07/24/20 04/14/24 History mcg chewable tablet blood sugar diagnostic #100 ea 12/18/20 04/14/24 Rx icosapent ethyl 1 gram capsule 2 g (2 x 1 gram) PO BID #120 caps 11/05/21 04/14/24 Rx (Vascepa) omega-3 fatty acids 1,000 mg 1,000 mg PO BID 01/23/23 04/14/24 History capsule polyethylene glycol 3350 17 4 g PO DAILY PRN 01/23/23 04/14/24 History gram/dose oral powder (Miralax) pen needle, diabetic 32 gauge x #150 ea 05/05/23 04/14/24 Rx 5/32 (BD Ultra-Fine Christy Pen Needle) tramadol 25 mg tablet 25 mg PO BID PRN 09/01/23 04/14/24 History flash glucose sensor (FreeStyle #2 ea 10/02/23 04/14/24 Rx Nomi 2 Sensor kit) furosemide 20 mg tablet 20 mg PO QDAY #90 tabs 10/13/23 04/14/24 Rx metoprolol succinate 50 mg 25 mg (1/2 x 50 mg) PO BID #180 10/13/23 04/14/24 Rx tablet,extended release 24 hr tabs Novolog FlexPen U-100 Insulin 100 40 unit (0.4 mL) subcut TID #48 mL 01/01/24 04/14/24 Rx unit/mL (3 mL) subcutaneous (insulin aspart U-100) fluticasone propionate 50 1 spray intranasal DAILY PRN 01/01/24 04/14/24 History mcg/actuation nasal spray,suspension lisinopril 10 mg tablet 10 mg PO DAILY #90 tabs 01/23/24 04/14/24 Rx insulin degludec 200 unit/mL (3 55 unit subcut QHS 02/20/24 04/14/24 History mL) subcutaneous pen (Tresiba FlexTouch U-200 insulin) montelukast 10 mg tablet 10 mg PO DAILY #90 tabs 04/05/24 04/14/24 Rx blood sugar diagnostic (OneTouch #100 ea 04/09/24 04/14/24 Rx Ultra Test strips) loratadine 10 mg tablet 10 mg PO DAILY PRN for allergies 04/09/24 04/14/24 Rx #90 TABLETS potassium chloride 20 mEq 20 meq PO QDAY #90 tabs 04/09/24 04/14/24 Rx tablet,extended release(part/cryst) (Klor-Con M) Saccharomyces boulardii 250 mg 250 mg PO BID 04/14/24 04/14/24 History capsule (Florastor) allopurinol 300 mg tablet 300 mg PO DAILY #90 tabs 04/14/24 04/14/24 Rx fenofibrate micronized 134 mg 134 mg PO DAILY #90 caps 04/14/24 04/14/24 Rx capsule levothyroxine 112 mcg tablet 112 mcg PO DAILY #90 tabs 04/14/24 04/14/24 Rx rosuvastatin 20 mg tablet 20 mg PO QDAY #90 tabs 04/14/24 04/14/24 Rx trazodone 50 mg tablet 50 mg PO QHS PRN insomnia #90 tabs 04/14/24 04/14/24 Rx vancomycin 125 mg capsule 125 mg PO 4X/DAY 04/14/24 04/14/24 History Have you fallen in the past year?: No Nurse's Note: Needing levothyroxine, fenofibrate refilled., Has cdiff again, on florastor, and vanco. Dr. silva following. [facility] Medical History Bilateral pseudophakia Amblyopia of left eye Dry eye syndrome of bilateral lacrimal glands Acute allergic conjunctivitis of both eyes Hypertriglyceridemia Encounter for long-term (current) insulin use Shingles Thyroid disease Skin cancer High cholesterol Gout Diabetes type 2, controlled Back problem Seasonal allergies Surgical History Status post Mohs surgery History of knee replacement History of carpal tunnel release Hx of hernia repair H/O total hysterectomy Hx of cataract surgery Hx of cholecystectomy History of back surgery Family History (Reviewed 04/14/24 @ (more content not included)... Normal [facility] Lipid Profileon 04-14-2024 Cholesterol [Mass/Vol] 129 mg/dL Normal 200 [facility] Comment on above: Result Comment: <200 mg/dL Desirable 200-240 mg/dL Borderline >240 mg/dL High Risk Performed By: #### L 500.4050, L500.4100, L501.9520, L100.0100, L502.0250 ####[facility] [address] [place], [address] Cholesterol in HDL [Mass/Vol] 28 mg/dL Low [facility] Comment on above: Result Comment: The drugs N-Acetylcysteine and Metamizole may falsely depress this assay. Reference Range HDL <40 mg/dL Low HDL Cholesterol HDL >or= 60 mg/dL High HDL Cholesterol Performed By: #### L 500.4050, L500.4100, L501.9520, L100.0100, L502.0250 ####[facility] [address] [place], [address] Cholesterol in LDL [Mass/Vol] 32 mg/dL Normal 0-130 [facility] Comment on above: Performed By: #### L 500.4050, L500.4100, L501.9520, L100.0100, L502.0250 ####[facility] [address] [place], [address] Cholesterol in VLDL [Mass/Vol] 69 mg/dL High 5-40 [facility] Comment on above: Performed By: #### L 500.4050, L500.4100, L501.9520, L100.0100, L502.0250 ####[facility] [address] [place], [address] Triglyceride [Mass/Vol] 345 mg/dL High [facility] Comment on above: Result Comment: The drugs N-Acetylcysteine and Metamizole may falsely depress this assay. Serum Triglycerides Reference Interval Normal <150 mg/dL Borderline high 150 - 199 mg/dL High 200 - 499 mg/dL Very High > or = 500 mg/dL Performed By: #### L 500.4050, L500.4100, L501.9520, L100.0100, L502.0250 ####[facility] [address] [place], [address] Microalb:Creat Ratio,Random URon 04-14-2024 Creatinine [Mass/Vol] 42.90 mg/dL Normal NO RAN GE EST. [facility] Comment on above: Performed By: #### L 500.4050, L500.4100, L501.9520, L100.0100, L502.0250 ####[facility] [address] [place], [address] MALB:CRE 15.7 mg/g CRE Normal <30 mg/g CRE [facility] Comment on above: Performed By: #### L 500.4050, L500.4100, L501.9520, L100.0100, L502.0250 ####[facility] [address] [place], [address] MICROALBUMIN,UR 6.7 mg/L Normal NO RANGE EST. [facility] Comment on above: Performed By: #### L 500.4050, L500.4100, L501.9520, L100.0100, L502.0250 ####[facility] [address] [place], [address] Thyroid Stim Hormone (TSH)on 04-14-2024 TSH 1.580 uIU/mL Normal 0.358-3.74 0 [facility] Comment on above: Performed By: #### L 500.4050, L500.4100, L501.9520, L100.0100, L502.0250 ####[facility] [address] [place], [address] XR SHOULDER RIGHT 1 VIEWon 1 XR SHOULDER RIGHT 1 VIEW EXAMINATION: XR SHOULDER RIGHT 1 VIEW 04/06/2024 9:53 am HISTORY: ORDERING SYSTEM PROVIDED HISTORY: Pain, TECHNOLOGIST PROVIDED HISTORY: Injury/Trauma Reason for exam: f/u right shoulder/ humerus fx Cancer History: . Surgery, RadiationHistory: . Encounter Type: Subsequent/Follow-up Mechanism of injury: fall ORDERING SYSTEM PROVIDED DIAGNOSIS CODES: R52 Pain COMPARISON: Right humerus radiograph 03/24/2024 FINDINGS: No gross change in alignment of comminuted and displaced proximal right humeral head and neck fracture. No significant callus formation or bony bridging. Similar moderate degenerative changes of the glenohumeral and acromioclavicular joints. Unremarkable soft tissues. IMPRESSION: No significant interval healing right proximal humerus fracture in grossly stable alignment on single frontal view. Workstation ID: [id number] Dictated by: CAROYLN STEARNS on FriApr 06, 2024 2:11:13 PM EDT Transcribed by: CAROLYN STEARNS on FriApr 06, 2024 2:11:13 PM EDT Finalized by: CAROLYN STEARNS on FriApr 06, 2024 2:11:13 PM EDT [facility] Comment on above: Order Comment: [facility] has implemented the eGFR calculation approach that does not have a coefficient for race that conforms to the NKF-ASN Task Force Recommendations. CDIFF (PCR)on 04-05-2024 CDIFF A positive C. diffic ile molecular test does not differentiate between an active C. difficile infection and C. difficile colonization. Use clinical judgement and paired toxin/antigen testing to identify true infection and need for treatment. C diff DNA Spec Ql SABRINA+probe Reference Range: Negative [employer] GeneXpert: polymerase chain reaction (PCR) 027 027 NAP1-B1 Presumptive Negative *for epidemiolologic???use C. Diff PCR A Positive-Toxigenic C. Difficile Detected A Normal [facility] Comment on above: Performed By: #### M 100.0561, M100.6727 ####[facility] [address] [place], [place], [id number] Clostridium Diff Toxin/Agon 04-05-2024 CDIFF (EIA) Interpretation of C. diff by EIA Method POS Antigen and POS Toxin = Positive for Toxigenic C. difficile gene and active toxin production IS detected. Consistent with true infection. C. difficile Antigen A Positive C. diff A/B Antigen A C. difficile Toxin A Positive-Toxigenic C. Difficile (EIA) A Toxigenic C. difficile Normal [facility] Comment on above: Performed By: #### M 100.6796, M100.6795 ####[facility] [address] [place], [address] ED Prov Noteon 03-28-2024 ED Prov Note ED PROVIDER NOTE [facility] EM[facility] NAME: Carolyn Cintron AGE: 78 y.o. : 1945 VISIT DATE: 03/28/2024 CSN: [id number] PCP: Ramón Coulter MD Chief Complaint Patient presents with Rash Voices concern for poison kavin x3 days History provided by: Patient Rash Location: Shoulder/arm and torso Shoulder/arm rash location: R shoulder and R upper arm Torso rash location: R chest Chronicity: New Duration: 4 days Quality: itchiness, redness and swelling Severity: Mild Onset quality: Gradual Timing: Constant Context: plant contact Ineffective treatments: Anti-itch cream Past Medical History: Diagnosis Date Asthma Diabetes mellitus (HCC) Gout High cholesterol 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 Hypothyroid Shigella dysentery Skin cancer Past Surgical History: Procedure Laterality Date CARPAL TUNNEL RELEASE Bilateral CHOLECYSTECTOMY 1993 COLONOSCOPY 1998 LAMINECTOMY DISC LUMBAR SINGLE LEVEL 10/15/2011 SKIN CANCER EXCISION 03/08/2021 left shoulder/Right cheek GABO/BSO 1980 TOTAL KNEE ARTHROPLASTY Bilateral UMBILICAL HERNIA REPAIR Family History Problem Relation Age of Onset Diabetes Mother Heart disease Mother Colon cancer Father Diabetes Sister Heart disease Sister Diabetes Brother Diabetes Son Diabetes Brother Heart disease Brother Diabetes Sister Heart disease Sister Diabetes Sister Social History Socioeconomic History Marital status: Tobacco Use Smoking status: Never Passive exposure: Never Smokeless tobacco: Never Vaping Use Vaping status: Never Used Substance and Sexual Activity Alcohol use: No Drug use: No Social Determinants of Health Food Insecurity: No Food Insecurity (03/24/2024) Hunger Vital Sign Worried About Running Out of Food in the Last Year: Never true Ran Out of Food in the Last Year: Never true Transportation Needs: No Transportation Needs (03/24/2024) PRAPARE - Transportation Lack of Transportation (Medical): No Lack of Transportation (Non-Medical): No Housing Stability: Low Risk (03/24/2024) Housing Stability Vital Sign Unable to Pay for Housing in the Last Year: No Number of Times Moved in the Last Year: 1 Homeless in the Last Year: No Previous Medications Medication Sig acetaminophen (Tylenol Extra Strength) 500 MG tablet Take 2 (two) tablets (1,000 mg total) by mouth every 8 (eight) hours for 10 days . aspirin 81 MG EC tablet Take 1 (one) tablet (81 mg total) by mouth daily . blood sugar diagnostic (glucose blood) strips Use to test 6 times per day. DG code E11.65. Use what coordinates with pt meter. . blood sugar diagnostic (ONETOUCH ULTRA BLUE TEST STRIP) strips One touch ultra blue strips - use to check BG 6x a day.DX code E11.65 . blood sugar diagnostic (OneTouch Verio test strips) strips USe to check BG 4x daily, DX code E11.65 insulin used . blood sugar diagnostic (ONETOUCH VERIO) strips Use as directed 6 times/day One Touch Verio strips . cholecalciferol, vitamin D3, 25 mcg (1,000 unit) capsule Take 1 (one) capsule (1,000 Units total) by mouth 2 (two) times a day . cyanocobalamin (B-12) 1000 MCG tablet Take 1 (one) tablet (1,000 mcg total) by mouth daily . dicyclomine (BENTYL) 20 mg tablet Take 1 (one) tablet (20 mg total) by mouth 4 (four) times a day as needed (Abd pain) . docusate sodium (COLACE) 100 MG capsule Take 1 (one) capsule (100 mg total) by mouth 2 (two) times a day for 10 days . fenofibrate micronized (LOFIBRA) 134 MG capsule TAKE 1 CAPSULE BY MOUTH DAILY. TAKE WITH FOOD. fluticasone (FLONASE) 50 mcg/actuation nasal spray Instill 1 (one) spray into each nostril daily . furosemide (LASIX) 20 MG tablet Take 1 (one) tablet (20 mg total) by mouth every other day . insulin degludec (Tresiba FlexTouch U-200) 200 unit/mL (3 mL) InPn Inject 55 (fifty five) Units under the skin daily . Klor-Con M20 20 mEq tablet Take 1 (one) tablet (20 mEq total) by mouth every other day . levothyroxine (SYNTHROID, LEVOTHROID) 112 MCG tablet Take 1 (one) tablet (112 mcg total) by mouth once daily . lisinopriL (PRINIVIL,ZESTRIL) 10 MG tablet Take 1 (one) tablet (10 mg total) by mouth daily . loratadine (Claritin Liqui-Gel) 10 mg cap Take by mouth daily . MAGNESIUM OXIDE ORAL Take 800 mg by mouth every other day . metoprolol tartrate (LOPRESSOR) 50 MG tablet TAKE 0.5 (ONE-HALF) TABLET (25 MG TOTAL) BY MOUTH 2 (TWO) TIMES A DAY . montelukast (SINGULAIR) 10 mg tablet Take 1 (one) tablet (10 mg total) by mouth daily . NovoLIN N NPH U-100 Insulin 100 unit/mL injection Use as directed twice daily, approx 85 units daily (Needs [employer] brand) . NovoLIN R Regular U-100 Insuln 100 unit/mL injection USE DIRECTED THREE TIMES DAILY INJECTING UP TO 80 UNITS PER DAY . (Patient taking differently: USE DIRECTED THREE TIMES DAILY .) OMEGA-3 FATTY ACIDS-FISH OIL ORAL Take 1 g by mouth 2 (two) times a day . ondansetron (ZOFRAN) 8 (more content not included)... Normal [facility] BASIC METABOLIC PANELon 03-07 Anion gap [Moles/Vol] 17 mmol/L Normal 10-20 [facility] Comment on above: Order Comment: [facility] has implemented the eGFR calculation approach that does not have a coefficient for race that conforms to the NKF-ASN Task Force Recommendations. Performed By: #### 4 [id number] #### LAB [address] [place], [place] [address] Delfin Spangler M.D. [id number] Calcium [Mass/Vol] 9.3 mg/dL Normal 8.4-10.2 [facility] Comment on above: Order Comment: [facility] has implemented the eGFR calculation approach that does not have a coefficient for race that conforms to the NKF-ASN Task Force Recommendations. Performed By: #### 4 [id number] #### LAB [address] [place], [place] [address] Delfin Spangler M.D. [id number] Chloride [Moles/Vol] 104 mmol/L Normal 98-108 [facility] Comment on above: Order Comment: [facility] has implemented the eGFR calculation approach that does not have a coefficient for race that conforms to the NKF-ASN Task Force Recommendations. Performed By: #### 4 6124 #### LAB [address] [place], [place] [address] Delfin Spangler M.D. [id number] Creatinine [Mass/Vol] 1.22 mg/dL High 0.60-1.10 [facility] Comment on above: Order Comment: [facility] has implemented the eGFR calculation approach that does not have a coefficient for race that conforms to the NKF-ASN Task Force Recommendations. Performed By: #### 4 6124 #### LAB [address] [place] [address] Delfin Spangler M.D. [id number] EGFR 46 mL/min/1.73 m2 Low >=60 [facility] Comment on above: Order Comment: [facility] has implemented the eGFR calculation approach that does not have a coefficient for race that conforms to the NKF-ASN Task Force Recommendations. Result Comment: Chloé mated GFR was calculated using the 2020 CKD-EPI creatinine equation. Performed By: #### 4 6124 #### LAB [address] [place] [address] Delfin Spangler M.D. [id number] Glucose [Mass/Vol] 212 mg/dL High 65-99 [facility] Comment on above: Order Comment: [facility] has implemented the eGFR calculation approach that does not have a coefficient for race that conforms to the NKF-ASN Task Force Recommendations. Performed By: #### 4 6124 #### [facility] [address] [place] [address] Delfin Spangler M.D. [id number] HCO3 (Bld) [Moles/Vol] 24 mmol/L Normal 21-32 [facility] Comment on above: Order Comment: [facility] has implemented the eGFR calculation approach that does not have a coefficient for race that conforms to the NKF-ASN Task Force Recommendations. Performed By: #### 4 6111 #### [facility] [address] [place], [place] [address] Delfin Spangler M.D. [id number] Potassium [Moles/Vol] 4.5 mmol/L Normal 3.5-5.1 [facility] Comment on above: Order Comment: [facility] has implemented the eGFR calculation approach that does not have a coefficient for race that conforms to the NKF-ASN Task Force Recommendations. Performed By: #### 4 6124 #### LAB [address] [place] [address] Delfin Spangler M.D. [id number] Sodium [Moles/Vol] 140 mmol/L Normal 135-145 [facility] Comment on above: Order Comment: [facility] has implemented the eGFR calculation approach that does not have a coefficient for race that conforms to the NKF-ASN Task Force Recommendations. Performed By: #### 4 6124 #### LAB [address] [place] [address] Delfin Spangler M.D. [id number] Urea nitrogen [Mass/Vol] 27 mg/dL High 8-25 [facility] Comment on above: Order Comment: [facility] has implemented the eGFR calculation approach that does not have a coefficient for race that conforms to the NKF-ASN Task Force Recommendations. Performed By: #### 4 6124 #### LAB [address] [place] [address] Delfin Spangler M.D. [id number] Urea nitrogen/Creatinine [Mass ratio] 22.1 mg/mg High 10.0-20.0 [facility] Comment on above: Order Comment: [facility] has implemented the eGFR calculation approach that does not have a coefficient for race that conforms to the NKF-ASN Task Force Recommendations. Performed By: #### 4 6197 #### [facility] [address] [place] [address] Delfin Spangler M.D. [id number] CBCon 03-25-2024 AUTO NRBC 0.0 % Normal [facility] Comment on above: Performed By: #### 4 6625 #### [facility] LAB [address] [place] [address] Delfin Spangler M.D. [id number] AUTO NRBC ABS COUNT 0.00 K/mcL Normal 0.00-0.00 [facility] Comment on above: Performed By: #### 4 6625 #### LAB [address] [place] [address] Delfin Spangler M.D. [id number] Erythrocyte distribution width (RBC) [Ratio] 14.8 % Normal 11.6-14.8 [facility] Comment on above: Performed By: #### 4 6625 #### LAB [address] [place] [address] Delfin Spangler M.D. [id number] Hematocrit (Bld) [Volume fraction] 31.3 % Low 36.0-46.0 [facility] Comment on above: Performed By: #### 4 6625 #### LAB [address] [place] [address] Delfin Spangler M.D. [id number] Hemoglobin (Bld) [Mass/Vol] 10.1 g/dL Low 12.0-16.0 [facility] Comment on above: Performed By: #### 4 6625 #### LAB [address] [place] [address] Delfin Spangler M.D. [id number] MCH (RBC) [Entitic mass] 32.5 pg Normal 26.0-34.0 [facility] Comment on above: Performed By: #### 4 6625 #### LAB [address] [place] [address] Delfin Spangler M.D. [id number] MCV (RBC) [Entitic vol] 100.6 fL High 80.0-100.0 [facility] Comment on above: Performed By: #### 4 6694 #### LAB [address] [place] [address] Delfin Spangler M.D. [id number] MEAN CORPUSCULAR HEMOGLOBIN CONC 32.3 g/dL Normal 31.0-37.0 [facility] Comment on above: Performed By: #### 4 6625 #### LAB [address] [place] [address] Delfin Spangler M.D. [id number] Platelet mean volume (Bld) [Entitic vol] 9.3 fL Low 9.4-12.4 [facility] Comment on above: Performed By: #### 4 6625 #### LAB [address] [place] [address] Delfin Spangler M.D. [id number] Platelets (Bld) [#/Vol] 182 10*3/uL Normal 150-400 [facility] Comment on above: Performed By: #### 4 6625 #### LAB [address] [place] [address] Delfin Spangler M.D. [id number] RBC (Bld) [#/Vol] 3.11 10*6/uL Low 4.00-5.20 [facility] Comment on above: Performed By: #### 4 6625 #### LAB [address] [place] [address] Delfin Spangler M.D. [id number] WBC (Bld) [#/Vol] 6.67 10*3/uL Normal 4.50-11.00 [facility] Comment on above: Performed By: #### 4 6625 #### LAB [address] [place] [address] Delfin Spangler M.D. [id number] HEMOGLOBIN A1Con 03-25-2024 Glucose [Mass/Vol] 151 mg/dL High 74-114 [facility] Comment on above: Performed By: #### 4 8202 #### LAB [address] [place] [address] Delfin Spangler M.D. [id number] HbA1c (Bld) [Mass fraction] 6.9 % High 4.2-5.6 [facility] Comment on above: Performed By: #### 4 8202 #### LAB [address] [place] [address] Delfin Spangler M.D. [id number] URINALYSISon 03-25-2024 BACTERIA, URINE None Seen Normal None Seen [facility] Comment on above: Order Comment: Micro scopic examination is performed on all urinalysis samples and only positive findings are reported. The test for blood on the chemical analytic portion of urinalysis may also be positive due to hemoglobinuria and myoglobinuria and if red blood cells are present they are quantified by microscopic examination. Performed By: #### 4 6625 #### LAB [address] [place] [address] Delfin Spangler M.D. [id number] BILIRUBIN, URINE Negative Normal Negative [facility] Comment on above: Order Comment: Micro scopic examination is performed on all urinalysis samples and only positive findings are reported. The test for blood on the chemical analytic portion of urinalysis may also be positive due to hemoglobinuria and myoglobinuria and if red blood cells are present they are quantified by microscopic examination. Performed By: #### 4 6625 #### LAB [address] [place] [address] Delfin Spangler M.D. [id number] BLOOD, URINE Negative Normal Negative [facility] Comment on above: Order Comment: Micro scopic examination is performed on all urinalysis samples and only positive findings are reported. The test for blood on the chemical analytic portion of urinalysis may also be positive due to hemoglobinuria and myoglobinuria and if red blood cells are present they are quantified by microscopic examination. Performed By: #### 4 6625 #### LAB [address] [place] [address] Delfin Spangler M.D. [id number] Clarity (U) Clear Normal Clear [facility] Comment on above: Order Comment: Micro scopic examination is performed on all urinalysis samples and only positive findings are reported. The test for blood on the chemical analytic portion of urinalysis may also be positive due to hemoglobinuria and myoglobinuria and if red blood cells are present they are quantified by microscopic examination. Performed By: #### 4 6625 #### LAB [address] [place] [address] Delfin Spangler M.D. [id number] Color (U) Yellow Normal Colorless, Yellow [facility] Comment on above: Order Comment: Micro scopic examination is performed on all urinalysis samples and only positive findings are reported. The test for blood on the chemical analytic portion of urinalysis may also be positive due to hemoglobinuria and myoglobinuria and if red blood cells are present they are quantified by microscopic examination. Performed By: #### 4 6625 #### LAB [address] [place] [address] Delfin Spangler M.D. [id number] Glucose Ql (U) Negative Normal Negative [facility] Comment on above: Order Comment: Micro scopic examination is performed on all urinalysis samples and only positive findings are reported. The test for blood on the chemical analytic portion of urinalysis may also be positive due to hemoglobinuria and myoglobinuria and if red blood cells are present they are quantified by microscopic examination. Performed By: #### 4 6625 #### LAB [address] [place] [address] Delfin Spangler M.D. [id number] Ketones Ql (U) Negative Normal Negative [facility] Comment on above: Order Comment: Micro scopic examination is performed on all urinalysis samples and only positive findings are reported. The test for blood on the chemical analytic portion of urinalysis may also be positive due to hemoglobinuria and myoglobinuria and if red blood cells are present they are quantified by microscopic examination. Performed By: #### 4 6625 #### LAB [address] [place] [address] Delfin Spangler M.D. [id number] Leukocyte esterase Test strip Ql (U) Trace Abnormal Negative [facility] Comment on above: Order Comment: Micro scopic examination is performed on all urinalysis samples and only positive findings are reported. The test for blood on the chemical analytic portion of urinalysis may also be positive due to hemoglobinuria and myoglobinuria and if red blood cells are present they are quantified by microscopic examination. Performed By: #### 4 6625 #### LAB [address] [place] [address] Delfin Spangler M.D. [id number] NITRITE, URINE Negative Normal Negative [facility] Comment on above: Order Comment: Micro scopic examination is performed on all urinalysis samples and only positive findings are reported. The test for blood on the chemical analytic portion of urinalysis may also be positive due to hemoglobinuria and myoglobinuria and if red blood cells are present they are quantified by microscopic examination. Performed By: #### 4 6625 #### LAB [address] [place] [address] Delfin Spangler M.D. [id number] pH (U) 5.0 [pH] Normal 5.0-7.0 [facility] Comment on above: Order Comment: Micro scopic examination is performed on all urinalysis samples and only positive findings are reported. The test for blood on the chemical analytic portion of urinalysis may also be positive due to hemoglobinuria and myoglobinuria and if red blood cells are present they are quantified by microscopic examination. Performed By: #### 4 6625 #### LAB [address] [place] [address] Delfin Spangler M.D. [id number] PROTEIN, URINE Negative Normal Negative [facility] Comment on above: Order Comment: Micro scopic examination is performed on all urinalysis samples and only positive findings are reported. The test for blood on the chemical analytic portion of urinalysis may also be positive due to hemoglobinuria and myoglobinuria and if red blood cells are present they are quantified by microscopic examination. Performed By: #### 4 6625 #### LAB [address] [place] [address] Delfin Spangler M.D. [id number] RBC LM.HPF (Urine sed) [#/Area] 2 /[HPF] Normal 0-3 [facility] Comment on above: Order Comment: Micro scopic examination is performed on all urinalysis samples and only positive findings are reported. The test for blood on the chemical analytic portion of urinalysis may also be positive due to hemoglobinuria and myoglobinuria and if red blood cells are present they are quantified by microscopic examination. Performed By: #### 4 6625 #### LAB [address] [place] [address] Delfin Spangler M.D. [id number] Specific gravity (U) [Rel density] 1.017 Normal 1.005-1.02 5 [facility] Comment on above: Order Comment: Micro scopic examination is performed on all urinalysis samples and only positive findings are reported. The test for blood on the chemical analytic portion of urinalysis may also be positive due to hemoglobinuria and myoglobinuria and if red blood cells are present they are quantified by microscopic examination. Performed By: #### 4 6625 #### [facility] [address] [place] [address] Delfin Spangler M.D. [id number] UROBILINOGEN, URINE <2.0 Normal <2.0 [facility] Comment on above: Order Comment: Micro scopic examination is performed on all urinalysis samples and only positive findings are reported. The test for blood on the chemical analytic portion of urinalysis may also be positive due to hemoglobinuria and myoglobinuria and if red blood cells are present they are quantified by microscopic examination. Performed By: #### 4 6625 #### [facility] [address] [place] [address] Delfin Spangler M.D. [id number] WBC LM.HPF (Urine sed) [#/Area] 3 /[HPF] Normal 0-5 [facility] Comment on above: Order Comment: Micro scopic examination is performed on all urinalysis samples and only positive findings are reported. The test for blood on the chemical analytic portion of urinalysis may also be positive due to hemoglobinuria and myoglobinuria and if red blood cells are present they are quantified by microscopic examination. Performed By: #### 4 6625 #### [facility] [address] [place], [place] [address] Delfin Spangler M.D. [id number] URINE AEROBIC CULTUREon 03-07 URINE AEROBIC CULTURE URINE CULTURE < 10,000 CFU/mL of normal urogenital microbiota Normal [facility] Comment on above: Performed By: #### 4 6124 #### [facility] [address] [place], [place] [address] Delfin Spangler M.D. [id number] VITAMIN D, TOTAL, 25-OHon VITAMIN D 25-HYDROXY 34 ng/mL Normal 20-100 [facility] Comment on above: Order Comment: Micro scopic examination is performed on all urinalysis samples and only positive findings are reported. The test for blood on the chemical analytic portion of urinalysis may also be positive due to hemoglobinuria and myoglobinuria and if red blood cells are present they are quantified by microscopic examination. Performed By: #### 4 6625 #### LAB [address] [place] [address] Delfin Spangler M.D. [id number] ALCOHOL, MEDICALon ALCOHOL MEDICAL < Normal <10.0 [facility] Comment on above: Result Comment: Alco hol cutoff: <10.00 mg/dL = None Detected Performed By: #### 4 6124 #### [facility] [address] [place] [address] Delfin Spangler M.D. [id number] CBC WITH AUTO DIFFERENTIALon 03-24-2024 AUTO NRBC 0.0 % [facility] Comment on above: Performed By: #### 4 6124 #### LAB [address] [place] [address] Delfin Spangler M.D. [id number] AUTO NRBC ABS COUNT 0.00 K/mcL Normal 0.00-0.00 [facility] Comment on above: Performed By: #### 4 6124 #### LAB [address] [place] [address] Delfin Spangler M.D. [id number] BASOPHILS ABSOLUTE COUNT 0.04 K/mcL Normal 0.00-0.30 [facility] Comment on above: Performed By: #### 4 6124 #### LAB [address] [place] [address] Delfin Spangler M.D. [id number] Basophils/100 WBC (Bld) 0.8 % [facility] Comment on above: Performed By: #### 4 6156 #### LAB [address] [place] [address] Delfin Spangler M.D. [id number] Eosinophils (Bld) [#/Vol] 0.17 10*3/uL Normal 0.00-0.50 [facility] Comment on above: Performed By: #### 4 6179 #### LAB [address] [place] [address] Delfin Spangler M.D. [id number] Eosinophils/100 WBC (Bld) 3.5 % Normal [facility] Comment on above: Performed By: #### 4 6184 #### LAB [address] [place] [address] Delfin Spangler M.D. [id number] Erythrocyte distribution width (RBC) [Ratio] 14.7 % Normal 11.6-14.8 [facility] Comment on above: Performed By: #### 4 6185 #### LAB [address] [place] [address] Delfin Spangler M.D. [id number] Hematocrit (Bld) [Volume fraction] 35.5 % Low 36.0-46.0 [facility] Comment on above: Performed By: #### 4 6124 #### LAB [address] [place] [address] Delfin Spangler M.D. [id number] Hemoglobin (Bld) [Mass/Vol] 11.4 g/dL Low 12.0-16.0 [facility] Comment on above: Performed By: #### 4 6103 #### LAB [address] [place] [address] Delfin Spangler M.D. [id number] IG ABSOLUTE 0.03 K/mcL Normal 0.00-0.30 [facility] Comment on above: Performed By: #### 4 6176 #### LAB [address] [place] [address] Delfin Spangler M.D. [id number] IG PERCENT 0.60 % Normal [facility] Comment on above: Result Comment: The IG parameter is the percentage of metamyelocytes, myelocytes and promyelocytes. An immature granulocyte count (IG) of 1% or more suggests the possibility of infection, an IG count of 3% is very likely related to an infection. Performed By: #### 4 6124 #### [facility] [address] [place] [address] Delfin Spangler M.D. [id number] Lymphocytes (Bld) [#/Vol] 1.78 10*3/uL Normal 0.90-4.00 [facility] Comment on above: Performed By: #### 4 6124 #### LAB [address] [place] [address] Delfin Spangler M.D. [id number] Lymphocytes/100 WBC (Bld) 36.9 % Normal [facility] Comment on above: Performed By: #### 4 6124 #### LAB [address] [place] [address] Delfin Spangler M.D. [id number] MCH (RBC) [Entitic mass] 32.3 pg Normal 26.0-34.0 [facility] Comment on above: Performed By: #### 4 6124 #### LAB [address] [place] [address] Delfin Spangler M.D. [id number] MCV (RBC) [Entitic vol] 100.6 fL High 80.0-100.0 [facility] Comment on above: Performed By: #### 4 6124 #### LAB [address] [place] [address] Delfin Spangler M.D. [id number] MEAN CORPUSCULAR HEMOGLOBIN CONC 32.1 g/dL Normal 31.0-37.0 [facility] Comment on above: Performed By: #### 4 6124 #### LAB [address] [place] [address] Delfin Spangler M.D. [id number] Monocytes (Bld) [#/Vol] 0.39 10*3/uL Normal 0.30-0.90 [facility] Comment on above: Performed By: #### 4 6108 #### LAB [address] [place] [address] Delfin Spangler M.D. [id number] Monocytes/100 WBC (Bld) 8.1 % Normal [facility] Comment on above: Performed By: #### 4 6124 #### LAB [address] [place] [address] Delfin Spangler M.D. [id number] NEUTROPHILS ABSOLUTE COUNT 2.41 K/mcL Normal 1.70-7.00 [facility] Comment on above: Performed By: #### 4 6124 #### LAB [address] [place] [address] Delfin Spangler M.D. [id number] Neutrophils/100 WBC (Bld) 50.1 % Normal [facility] Comment on above: Performed By: #### 4 6124 #### LAB [address] [place] [address] Delfin Spangler M.D. [id number] Platelet mean volume (Bld) [Entitic vol] 9.1 fL Low 9.4-12.4 [facility] Comment on above: Performed By: #### 4 6124 #### LAB [address] [place] [address] Delfin Spangler M.D. [id number] Platelets (Bld) [#/Vol] 209 10*3/uL Normal 150-400 [facility] Comment on above: Performed By: #### 4 6124 #### LAB [address] [place] [address] Delfin Spangler M.D. [id number] RBC (Bld) [#/Vol] 3.53 10*6/uL Low 4.00-5.20 [facility] Comment on above: Performed By: #### 4 6124 #### [facility] [address] [address] Delfin Spangler M.D. [id number] WBC (Bld) [#/Vol] 4.82 10*3/uL Normal 4.50-11.00 [facility] Comment on above: Performed By: #### 4 [id number] #### LAB [address] [address] Delfin Spangler M.D. [id number] CHEM 03-24-2024 Anion gap [Moles/Vol] 18 mmol/L Normal 10-20 [facility] Comment on above: Order Comment: Micro scopic examination is performed on all urinalysis samples and only positive findings are reported. The test for blood on the chemical analytic portion of urinalysis may also be positive due to hemoglobinuria and myoglobinuria and if red blood cells are present they are quantified by microscopic examination. Performed By: #### 4 [id number] #### LAB [address] [address] Delfin Spangler M.D. [id number] Chloride [Moles/Vol] 103 mmol/L Normal 98-108 [facility] Comment on above: Order Comment: Micro scopic examination is performed on all urinalysis samples and only positive findings are reported. The test for blood on the chemical analytic portion of urinalysis may also be positive due to hemoglobinuria and myoglobinuria and if red blood cells are present they are quantified by microscopic examination. Performed By: #### 4 [id number] #### [facility] [address] [place] [address] Delfin Spangler M.D. [id number] Creatinine [Mass/Vol] 1.53 mg/dL High 0.60-1.10 [facility] Comment on above: Order Comment: Micro scopic examination is performed on all urinalysis samples and only positive findings are reported. The test for blood on the chemical analytic portion of urinalysis may also be positive due to hemoglobinuria and myoglobinuria and if red blood cells are present they are quantified by microscopic examination. Performed By: #### 4 [id number] #### [facility] [address] [place] [address] Delfin Spangler M.D. [id number] EGFR 35 mL/min/1.73 m2 Low >=60 [facility] Comment on above: Order Comment: Micro scopic examination is performed on all urinalysis samples and only positive findings are reported. The test for blood on the chemical analytic portion of urinalysis may also be positive due to hemoglobinuria and myoglobinuria and if red blood cells are present they are quantified by microscopic examination. Result Comment: Chloé mated GFR was calculated using the 2020 CKD-EPI creatinine equation. Performed By: #### 4 [id number] #### LAB [address] [address] Delfin Spangler M.D. [id number] Glucose [Mass/Vol] 197 mg/dL High 65-99 [facility] Comment on above: Order Comment: Micro scopic examination is performed on all urinalysis samples and only positive findings are reported. The test for blood on the chemical analytic portion of urinalysis may also be positive due to hemoglobinuria and myoglobinuria and if red blood cells are present they are quantified by microscopic examination. Performed By: #### 4 [id number] #### LAB [address] [address] Delfin Spangler M.D. [id number] HCO3 (Bld) [Moles/Vol] 23 mmol/L Normal 21-32 [facility] Comment on above: Order Comment: Micro scopic examination is performed on all urinalysis samples and only positive findings are reported. The test for blood on the chemical analytic portion of urinalysis may also be positive due to hemoglobinuria and myoglobinuria and if red blood cells are present they are quantified by microscopic examination. Performed By: #### 4 [id number] #### LAB [address] [address] Delfin Spangler M.D. [id number] Potassium [Moles/Vol] 4.7 mmol/L Normal 3.5-5.1 [facility] Comment on above: Order Comment: Micro scopic examination is performed on all urinalysis samples and only positive findings are reported. The test for blood on the chemical analytic portion of urinalysis may also be positive due to hemoglobinuria and myoglobinuria and if red blood cells are present they are quantified by microscopic examination. Result Comment: Slig htly Hemolyzed Performed By: #### 4 [id number] #### LAB [address] [address] Delfin Spangler M.D. [id number] Sodium [Moles/Vol] 139 mmol/L Normal 135-145 [facility] Comment on above: Order Comment: Micro scopic examination is performed on all urinalysis samples and only positive findings are reported. The test for blood on the chemical analytic portion of urinalysis may also be positive due to hemoglobinuria and myoglobinuria and if red blood cells are present they are quantified by microscopic examination. Performed By: #### 4 [id number] #### LAB [address] [address] Delfin Spangler M.D. [id number] Urea nitrogen [Mass/Vol] 32 mg/dL High 8-25 [facility] Comment on above: Order Comment: Micro scopic examination is performed on all urinalysis samples and only positive findings are reported. The test for blood on the chemical analytic portion of urinalysis may also be positive due to hemoglobinuria and myoglobinuria and if red blood cells are present they are quantified by microscopic examination. Performed By: #### 4 [id number] #### LAB [address] [place] [address] Delfin Spangler M.D. [id number] Urea nitrogen/Creatinine [Mass ratio] 20.9 mg/mg [facility] 10.0-20.0 [facility] Comment on above: Order Comment: Micro scopic examination is performed on all urinalysis samples and only positive findings are reported. The test for blood on the chemical analytic portion of urinalysis may also be positive due to hemoglobinuria and myoglobinuria and if red blood cells are present they are quantified by microscopic examination. Performed By: #### 4 [id number] #### LAB [address] [place] [address] [address] [id number] CT CERVICAL SPINE WITHOUT CO NTRASTon 03-24-2024 CT CERVICAL SPINE WITHOUT CONTRAST EXAMINATION: CT CERVICAL SPINE WITHOUT CONTRAST HISTORY: ORDERING SYSTEM PROVIDED HISTORY: trauma, TECHNOLOGIST PROVIDED HISTORY: Injury/Trauma Reason for exam: head and neck injury s/p fall Encounter Type: Initial Mechanism of injury: head and neck injury s/p fall ORDERING SYSTEM PROVIDED DIAGNOSIS CODES: S09.90XA Closed head injury, initial encounter M25.511 Acute pain of right shoulder M25.531 Wrist pain, right COMPARISON: None TECHNIQUE: CT cervical spine without IV contrast. Coronal and sagittal reformations were performed. Dose reduction techniques were achieved by using automated exposure control and/or adjustment of mA and/or kV according to patient size and/or use of iterative reconstruction technique. FINDINGS: There is slight compression of the central portion of the superior endplate of T1 of indeterminate age. No cervical fracture is seen. The odontoid is intact. No facet joint dislocation. Moderate degenerative changes at C4-5 through C7-T1 discs. Mild degenerative changes of facet joints. Mild spinal canal stenosis at C4-5. There is bilateral carotid calcification. Cervical soft tissues are otherwise unremarkable. Pulmonary apices are clear. Included upper ribs are intact. IMPRESSION: Slight compression of the superior endplate of T1 of indeterminate age. Negative for cervical fracture. Cervical spondylosis noted. Workstation ID: [id number] Dictated by: RYAN DHALIWAL on FriMar 24, 2024 5:48:56 PM EDT Transcribed by: RYAN DHALIWAL on FriMar 24, 2024 5:48:56 PM EDT Finalized by: RYAN DHALIWAL on FriMar 24, 2024 5:48:56 PM EDT [facility] Comment on above: Order Comment: [facility] has implemented the eGFR calculation approach that does not have a coefficient for race that conforms to the NKF-ASN Task Force Recommendations. CT HEAD OR BRAIN WITHOUT CON TRASTon 03-24-2024 CT HEAD OR BRAIN WITHOUT CONTRAST EXAMINATION: CT HEAD OR BRAIN WITHOUT CONTRAST HISTORY: ORDERING SYSTEM PROVIDED HISTORY: trauma, TECHNOLOGIST PROVIDED HISTORY: Injury/Trauma Reason for exam: head and neck injury s/p fall Encounter Type: Initial Mechanism of injury: head and neck injury s/p fall ORDERING SYSTEM PROVIDED DIAGNOSIS CODES: S09.90XA Closed head injury, initial encounter M25.511 Acute pain of right shoulder M25.531 Wrist pain, right COMPARISON: None TECHNIQUE: CT examination of the head without IV contrast. Dose reduction techniques were achieved by using automated exposure control and/or adjustment of mA and/or kV according to patient size and/or use of iterative reconstruction technique. FINDINGS: No intracranial mass, hemorrhage or infarct is demonstrated. Bilateral basal ganglia calcification noted. No extra-axial fluid collection. Normal santiago-white differentiation. Normal brainstem. There is intracranial vascular calcification. No orbital abnormality is seen. Bony structures are unremarkable and visualized paranasal sinuses and mastoid air cells are well aerated. IMPRESSION: Negative for skull fracture or acute intracranial abnormality. Workstation ID: [id number] Dictated by: RYAN DHALIWAL on FriMar 24, 2024 5:44:40 PM EDT Transcribed by: RYAN DHALIWAL on FriMar 24, 2024 5:44:40 PM EDT Finalized by: RYAN DHALIWAL on FriMar 24, 2024 5:44:40 PM EDT Normal [facility] Comment on above: Order Comment: Micro scopic examination is performed on all urinalysis samples and only positive findings are reported. The test for blood on the chemical analytic portion of urinalysis may also be positive due to hemoglobinuria and myoglobinuria and if red blood cells are present they are quantified by microscopic examination. ED Prov Noteon 03-24-2024 ED Prov Note [facility] EMERGENCY DEPARTMENT ATTENDING NOTE: NAME: Carolyn Cintron CSN: [id number] 78 y.o. PCP: Ryan Gomez MD History: Chief Complaint: Fall and Shoulder Injury HPI: 78-year-old female past medical history of diabetes obesity hypertension presents to the emergency department following mechanical ground-level fall positive head strike negative LOC GCS 15 negative thinners reporting significant right shoulder pain arm pain wrist pain symptoms without radiation or migration. No specific alleviating or aggravating factors. No recent travel known sick contacts antibiotic use. Patient denies any other symptoms at this time. PMHx: Past Medical History: Diagnosis Date Asthma Diabetes mellitus (HCC) Gout High cholesterol 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 Hypothyroid Shigella dysentery Skin cancer PMSx: Past Surgical History: Procedure Laterality Date CARPAL TUNNEL RELEASE Bilateral CHOLECYSTECTOMY 1993 COLONOSCOPY 1998 LAMINECTOMY DISC LUMBAR SINGLE LEVEL 10/15/2011 SKIN CANCER EXCISION 03/08/2021 left shoulder/Right cheek GABO/BSO 1979 TOTAL KNEE ARTHROPLASTY Bilateral UMBILICAL HERNIA REPAIR FAM. Hx: Family History Problem Relation Age of Onset Diabetes Mother Heart disease Mother Colon cancer Father Diabetes Sister Heart disease Sister Diabetes Brother Diabetes Son Diabetes Brother Heart disease Brother Diabetes Sister Heart disease Sister Diabetes Sister SOC. Hx: Social History Socioeconomic History Marital status: Tobacco Use Smoking status: Never Passive exposure: Never Smokeless tobacco: Never Vaping Use Vaping status: Never Used Substance and Sexual Activity Alcohol use: No Drug use: No MEDs: Previous Medications Medication Sig aspirin 81 MG EC tablet Take 1 (one) tablet (81 mg total) by mouth daily . blood sugar diagnostic (glucose blood) strips Use to test 6 times per day. DG code E11.65. Use what coordinates with pt meter. . blood sugar diagnostic (ONETOUCH ULTRA BLUE TEST STRIP) strips One touch ultra blue strips - use to check BG 6x a day.DX code E11.65 . blood sugar diagnostic (OneTouch Verio test strips) strips USe to check BG 4x daily, DX code E11.65 insulin used . blood sugar diagnostic (ONETOUCH VERIO) strips Use as directed 6 times/day One Touch Verio strips . cholecalciferol, vitamin D3, 25 mcg (1,000 unit) capsule Take 1 (one) capsule (1,000 Units total) by mouth 2 (two) times a day . cyanocobalamin (B-12) 1000 MCG tablet Take 1 (one) tablet (1,000 mcg total) by mouth daily . dicyclomine (BENTYL) 20 mg tablet Take 1 (one) tablet (20 mg total) by mouth 4 (four) times a day as needed (Abd pain) . fenofibrate micronized (LOFIBRA) 134 MG capsule TAKE 1 CAPSULE BY MOUTH DAILY. TAKE WITH FOOD. fluticasone (FLONASE) 50 mcg/actuation nasal spray Instill 1 (one) spray into each nostril daily . furosemide (LASIX) 20 MG tablet Take 1 (one) tablet (20 mg total) by mouth every other day . insulin degludec (Tresiba FlexTouch U-200) 200 unit/mL (3 mL) InPn Inject under the skin . Klor-Con M20 20 mEq tablet Take 1 (one) tablet (20 mEq total) by mouth every other day . levothyroxine (SYNTHROID, LEVOTHROID) 112 MCG tablet Take 1 (one) tablet (112 mcg total) by mouth once daily . lisinopriL (PRINIVIL,ZESTRIL) 10 MG tablet Take 1 (one) tablet (10 mg total) by mouth daily . loratadine (Claritin Liqui-Gel) 10 mg cap Take by mouth daily . MAGNESIUM OXIDE ORAL Take 800 mg by mouth every other day . metoprolol tartrate (LOPRESSOR) 50 MG tablet TAKE 0.5 (ONE-HALF) TABLET (25 MG TOTAL) BY MOUTH 2 (TWO) TIMES A DAY . montelukast (SINGULAIR) 10 mg tablet Take 1 (one) tablet (10 mg total) by mouth daily . NovoLIN N NPH U-100 Insulin 100 unit/mL injection Use as directed twice daily, approx 85 units daily (Needs Reli-[employer] brand) . NovoLIN R Regular U-100 Insuln 100 unit/mL injection USE DIRECTED THREE TIMES DAILY INJECTING UP TO 80 UNITS PER DAY . (Patient taking differently: USE DIRECTED THREE TIMES DAILY .) OMEGA-3 FATTY ACIDS-FISH OIL ORAL Take 1 g by mouth 2 (two) times a day . ondansetron (ZOFRAN) 8 MG tablet Take 0.5 (one-half) tablet (4 mg total) by mouth every 8 (eight) hours as needed . ondansetron (ZOFRAN-ODT) 4 MG disintegrating tablet Dissolve 1 (one) tablet (4 mg total) on top of tongue every 6 (six) hours as needed for nausea . pantoprazole (PROTONIX) 40 MG tablet Take 1 (one) tablet (40 mg total) by mouth daily . rosuvastatin (CRESTOR) 20 MG tablet Take 1 (one) tablet (20 mg total) by mouth daily . therapeutic multivitamin (THERAGRAN) tablet Take 1 (one) tablet by mouth daily . traMADol (ULTRAM) 50 mg tablet Take 1 (one) tablet (50 mg total) by mouth every 4 (four) hours as needed for pain . traZODone (DESYREL) 50 MG tablet Take by mouth nightly as needed for sleep. ALL: Allergies Allergen Reactions Atorvastatin Other (See Comments) Exenatide (more content not included)... Normal [facility] VITAMIN D, TOTAL, 25-OHon VITAMIN D 25-HYDROXY 39 ng/mL Normal 20-100 [facility] Comment on above: Order Comment: Micro scopic examination is performed on all urinalysis samples and only positive findings are reported. The test for blood on the chemical analytic portion of urinalysis may also be positive due to hemoglobinuria and myoglobinuria and if red blood cells are present they are quantified by microscopic examination. Performed By: #### 4 [id number] #### [facility] [address] [place], [place] [address] Delfin Spangler M.D. [id number] XR CHEST PA/APon 03-24-2024 XR CHEST PA/AP EXAMINATION: XR CHEST PA/AP 03/24/2024 7:44 pm HISTORY: ORDERING SYSTEM PROVIDED HISTORY: s/p fall, TECHNOLOGIST PROVIDED HISTORY: Injury/Trauma Reason for exam: s/p fall Cancer History: . Surgery, RadiationHistory: . Encounter Type: Initial Mechanism of injury: . ORDERING SYSTEM PROVIDED DIAGNOSIS CODES: S09.90XA Closed head injury, initial encounter M25.511 Acute pain of right shoulder M25.531 Wrist pain, right COMPARISON: 08/31/2018 FINDINGS: 2 AP views of the chest with the patient mildly rotated to the right demonstrates the lungs to be clear of consolidations. No effusions or pneumothorax is seen. The heart size is at the upper limits of normal. A comminuted fracture involving the right humeral head and neck is seen. The ribs appear intact with note made of an old lateral right 10th rib fracture. IMPRESSION: 1. No acute pulmonary findings. 2. Comminuted proximal right humerus fracture. DPR/alt Workstation ID: [id number] Dictated by: RYAN BROWNING on FriMar 24, 2024 8:53:30 PM EDT Transcribed by: DELMY DALY on FriMar 24, 2024 8:56:11 PM EDT Finalized by: RYAN BROWNING on FriMar 24, 2024 9:00:32 PM EDT Normal [facility] Comment on above: Order Comment: Micro scopic examination is performed on all urinalysis samples and only positive findings are reported. The test for blood on the chemical analytic portion of urinalysis may also be positive due to hemoglobinuria and myoglobinuria and if red blood cells are present they are quantified by microscopic examination. XR ELBOW RIGHT 2 VIEWSon XR ELBOW RIGHT 2 VIEWS EXAMINATION: XR ELBOW RIGHT 2 VIEWS; XR FOREARM RIGHT 2 VIEWS; XR SHOULDER RIGHT 2+ VIEWS (STANDARD); XR HAND RIGHT 3+ VIEWS (STANDARD); XR WRIST RIGHT 3+ VIEWS (STANDARD); XR HUMERUS RIGHT 2+ VIEWS (STANDARD) 03/24/2024 5:21 pm HISTORY: ORDERING SYSTEM PROVIDED HISTORY: pain, TECHNOLOGIST PROVIDED HISTORY: Injury/Trauma Reason for exam: right elbow pain s/p fall Cancer History: . Surgery, RadiationHistory: . Encounter Type: Initial Mechanism of injury: . ORDERING SYSTEM PROVIDED DIAGNOSIS CODES: S09.90XA Closed head injury, initial encounter M25.511 Acute pain of right shoulder M25.531 Wrist pain, right COMPARISON: 08/28/2017. FINDINGS: Internal rotation, external rotation, and transscapular views of the right shoulder were obtained. Frontal and lateral radiographs of the right humerus were obtained. Frontal and lateral views of the right elbow were obtained. Frontal and lateral views of the right forearm were obtained. Frontal, lateral, and oblique radiographs of the right wrist and hand were obtained. Evaluation of the right shoulder demonstrates a comminuted and slightly impacted fracture traversing the humeral head/neck junction. There is mild AC joint hypertrophy. No dislocation is identified. The visualized portion of the right knee thorax appears to be intact. Evaluation of the right humerus demonstrates diffuse osseous demineralization. The distal right humerus is intact. No additional acute fracture is identified otherwise. Evaluation of the right elbow demonstrates diffuse osseous demineralization. The lateral view is obtained in a nonstandard fashion limiting evaluation for joint effusion. There are dier-bk-krvnbdmm degenerative changes. Within limitations of nonstandard positioning, no clearly acute right elbow fracture is identified. Plain films of the right forearm reveal diffuse osseous demineralization. No acute radius or ulnar fracture is identified. There are no retained radiopaque foreign bodies in the soft tissues. Evaluation of the right wrist demonstrates diffuse osseous demineralization. There are jgyl-qd-gepecdvv degenerative changes of the radiocarpal joint and at the radial aspect of the carpus and 1st carpometacarpal articulation. There is no clearly acute fracture identified. There is no dislocation or subluxation. The carpal bones appear to be intact. Evaluation of the right hand reveals diffuse osseous demineralization. There are moderate-advanced arthritic changes identified within the metacarpophalangeal articulations and the mid and distal interphalangeal articulations, most conspicuous at the 1st-3rd rays with periarticular soft tissue swelling. No acute displaced fracture. No dislocation. No retained radiopaque foreign bodies are identified in the soft tissues. IMPRESSION: 1. There is an acute comminuted and mildly displaced/impacted humeral head/neck fracture. 2. Within limitations of diffuse osseous demineralization and nonstandard radiographic positioning, the remaining portion of the right upper extremity appears to be intact to include the distal right humerus, the right elbow, the right forearm, the right wrist, and the right hand. 3. There are superimposed moderate-advanced arthritic changes which are most conspicuous within the distal and mid interphalangeal articulations at the 1st-3rd rays suggestive of osteoarthritis with erosive component. LSE/alt Workstation ID: [id number] Dictated by: PAUL LOBATO on FriMar 24, 2024 7:10:10 PM EDT Transcribed by: DELMY DALY on FriMar 24, 2024 7:19:12 PM EDT Finalized by: PAUL LOBATO on FriMar 24, 2024 7:37:59 PM EDT [facility] Comment on above: Order Comment: [facility] has implemented the eGFR calculation approach that does not have a coefficient for race that conforms to the NKF-ASN Task Force Recommendations. XR FOOT LEFT 3+ VIEWS (STAND ROCAEL)on 03-24-2024 XR FOOT LEFT 3+ VIEWS (STANDARD) EXAMINATION: XR FOOT LEFT 3+ VIEWS (STANDARD) 03/24/2024 5:22 pm HISTORY: ORDERING SYSTEM PROVIDED HISTORY: pain, TECHNOLOGIST PROVIDED HISTORY: Injury/Trauma Reason for exam: left great toe pain and bruising s/p fall Cancer History: . Surgery, RadiationHistory: . Encounter Type: Initial Mechanism of injury: . ORDERING SYSTEM PROVIDED DIAGNOSIS CODES: S09.90XA Closed head injury, initial encounter M25.511 Acute pain of right shoulder M25.531 Wrist pain, right COMPARISON: None. FINDINGS: Three views obtained. Alignment normal. No acute fracture. No dislocation. No suspicious osseous lesion. Patient is osteopenic. IMPRESSION: No acute fracture or dislocation. DMG/trn Workstation ID: [id number] Dictated by: HORACE ALFORD on FriMar 24, 2024 7:01:56 PM EDT Transcribed by: LAUREN BAKER on FriMar 24, 2024 7:10:20 PM EDT Finalized by: HORACE ALFORD on FriMar 24, 2024 10:33:52 PM EDT [facility] Comment on above: Order Comment: Injur y/Trauma or Illness?:Injury/Trauma How long have you had these symptoms (acute/chronic)?:Acute Reason for exam?:left great toe pain and bruising s/p fall History of cancer?:. Surgeries, chemotherapy, or radiation?:. Type of Exam?:Initial Mechanism of injury?:. XR FOREARM RIGHT 2 VIEWSon 0 9-18-2024 XR FOREARM RIGHT 2 VIEWS EXAMINATION: XR ELBOW RIGHT 2 VIEWS; XR FOREARM RIGHT 2 VIEWS; XR SHOULDER RIGHT 2+ VIEWS (STANDARD); XR HAND RIGHT 3+ VIEWS (STANDARD); XR WRIST RIGHT 3+ VIEWS (STANDARD); XR HUMERUS RIGHT 2+ VIEWS (STANDARD) 03/24/2024 5:21 pm HISTORY: ORDERING SYSTEM PROVIDED HISTORY: pain, TECHNOLOGIST PROVIDED HISTORY: Injury/Trauma Reason for exam: right elbow pain s/p fall Cancer History: . Surgery, RadiationHistory: . Encounter Type: Initial Mechanism of injury: . ORDERING SYSTEM PROVIDED DIAGNOSIS CODES: S09.90XA Closed head injury, initial encounter M25.511 Acute pain of right shoulder M25.531 Wrist pain, right COMPARISON: 08/28/2017. FINDINGS: Internal rotation, external rotation, and transscapular views of the right shoulder were obtained. Frontal and lateral radiographs of the right humerus were obtained. Frontal and lateral views of the right elbow were obtained. Frontal and lateral views of the right forearm were obtained. Frontal, lateral, and oblique radiographs of the right wrist and hand were obtained. Evaluation of the right shoulder demonstrates a comminuted and slightly impacted fracture traversing the humeral head/neck junction. There is mild AC joint hypertrophy. No dislocation is identified. The visualized portion of the right knee thorax appears to be intact. Evaluation of the right humerus demonstrates diffuse osseous demineralization. The distal right humerus is intact. No additional acute fracture is identified otherwise. Evaluation of the right elbow demonstrates diffuse osseous demineralization. The lateral view is obtained in a nonstandard fashion limiting evaluation for joint effusion. There are qdhc-mu-gdcybdty degenerative changes. Within limitations of nonstandard positioning, no clearly acute right elbow fracture is identified. Plain films of the right forearm reveal diffuse osseous demineralization. No acute radius or ulnar fracture is identified. There are no retained radiopaque foreign bodies in the soft tissues. Evaluation of the right wrist demonstrates diffuse osseous demineralization. There are nihe-ep-dcxpedes degenerative changes of the radiocarpal joint and at the radial aspect of the carpus and 1st carpometacarpal articulation. There is no clearly acute fracture identified. There is no dislocation or subluxation. The carpal bones appear to be intact. Evaluation of the right hand reveals diffuse osseous demineralization. There are moderate-advanced arthritic changes identified within the metacarpophalangeal articulations and the mid and distal interphalangeal articulations, most conspicuous at the 1st-3rd rays with periarticular soft tissue swelling. No acute displaced fracture. No dislocation. No retained radiopaque foreign bodies are identified in the soft tissues. IMPRESSION: 1. There is an acute comminuted and mildly displaced/impacted humeral head/neck fracture. 2. Within limitations of diffuse osseous demineralization and nonstandard radiographic positioning, the remaining portion of the right upper extremity appears to be intact to include the distal right humerus, the right elbow, the right forearm, the right wrist, and the right hand. 3. There are superimposed moderate-advanced arthritic changes which are most conspicuous within the distal and mid interphalangeal articulations at the 1st-3rd rays suggestive of osteoarthritis with erosive component. [employer] Workstation ID: [id number] Dictated by: PAUL LOBATO on FriMar 24, 2024 7:10:10 PM EDT Transcribed by: DELMY DALY on FriMar 24, 2024 7:19:12 PM EDT Finalized by: PAUL LOBATO on FriMar 24, 2024 7:37:59 PM EDT [facility] Comment on above: Order Comment: Injur y/Trauma or Illness?:Injury/Trauma How long have you had these symptoms (acute/chronic)?:Acute Reason for exam?:right arm pain s/p fall History of cancer?:. Surgeries, chemotherapy, or radiation?:. Type of Exam?:Initial Mechanism of injury?:. XR HAND RIGHT 3+ VIEWS (LISSA ALANAD)on 03-24-2024 XR HAND RIGHT 3+ VIEWS (STANDARD) EXAMINATION: XR ELBOW RIGHT 2 VIEWS; XR FOREARM RIGHT 2 VIEWS; XR SHOULDER RIGHT 2+ VIEWS (STANDARD); XR HAND RIGHT 3+ VIEWS (STANDARD); XR WRIST RIGHT 3+ VIEWS (STANDARD); XR HUMERUS RIGHT 2+ VIEWS (STANDARD) 03/24/2024 5:21 pm HISTORY: ORDERING SYSTEM PROVIDED HISTORY: pain, TECHNOLOGIST PROVIDED HISTORY: Injury/Trauma Reason for exam: right elbow pain s/p fall Cancer History: . Surgery, RadiationHistory: . Encounter Type: Initial Mechanism of injury: . ORDERING SYSTEM PROVIDED DIAGNOSIS CODES: S09.90XA Closed head injury, initial encounter M25.511 Acute pain of right shoulder M25.531 Wrist pain, right COMPARISON: 08/28/2017. FINDINGS: Internal rotation, external rotation, and transscapular views of the right shoulder were obtained. Frontal and lateral radiographs of the right humerus were obtained. Frontal and lateral views of the right elbow were obtained. Frontal and lateral views of the right forearm were obtained. Frontal, lateral, and oblique radiographs of the right wrist and hand were obtained. Evaluation of the right shoulder demonstrates a comminuted and slightly impacted fracture traversing the humeral head/neck junction. There is mild AC joint hypertrophy. No dislocation is identified. The visualized portion of the right knee thorax appears to be intact. Evaluation of the right humerus demonstrates diffuse osseous demineralization. The distal right humerus is intact. No additional acute fracture is identified otherwise. Evaluation of the right elbow demonstrates diffuse osseous demineralization. The lateral view is obtained in a nonstandard fashion limiting evaluation for joint effusion. There are haxv-ln-stpacftq degenerative changes. Within limitations of nonstandard positioning, no clearly acute right elbow fracture is identified. Plain films of the right forearm reveal diffuse osseous demineralization. No acute radius or ulnar fracture is identified. There are no retained radiopaque foreign bodies in the soft tissues. Evaluation of the right wrist demonstrates diffuse osseous demineralization. There are gadg-gq-fwoddmos degenerative changes of the radiocarpal joint and at the radial aspect of the carpus and 1st carpometacarpal articulation. There is no clearly acute fracture identified. There is no dislocation or subluxation. The carpal bones appear to be intact. Evaluation of the right hand reveals diffuse osseous demineralization. There are moderate-advanced arthritic changes identified within the metacarpophalangeal articulations and the mid and distal interphalangeal articulations, most conspicuous at the 1st-3rd rays with periarticular soft tissue swelling. No acute displaced fracture. No dislocation. No retained radiopaque foreign bodies are identified in the soft tissues. IMPRESSION: 1. There is an acute comminuted and mildly displaced/impacted humeral head/neck fracture. 2. Within limitations of diffuse osseous demineralization and nonstandard radiographic positioning, the remaining portion of the right upper extremity appears to be intact to include the distal right humerus, the right elbow, the right forearm, the right wrist, and the right hand. 3. There are superimposed moderate-advanced arthritic changes which are most conspicuous within the distal and mid interphalangeal articulations at the 1st-3rd rays suggestive of osteoarthritis with erosive component. [facility] Workstation ID: [id number] Dictated by: PAUL LOBATO on FriMar 24, 2024 7:10:10 PM EDT Transcribed by: DELMY DALY on FriMar 24, 2024 7:19:12 PM EDT Finalized by: PAUL LOBATO on FriMar 24, 2024 7:37:59 PM EDT [facility] Comment on above: Order Comment: [facility] has implemented the eGFR calculation approach that does not have a coefficient for race that conforms to the NKF-ASN Task Force Recommendations. XR HUMERUS RIGHT 2+ VIEWS (S TANDARD)on 03-24-2024 XR HUMERUS RIGHT 2+ VIEWS (STANDARD) EXAMINATION: XR ELBOW RIGHT 2 VIEWS; XR FOREARM RIGHT 2 VIEWS; XR SHOULDER RIGHT 2+ VIEWS (STANDARD); XR HAND RIGHT 3+ VIEWS (STANDARD); XR WRIST RIGHT 3+ VIEWS (STANDARD); XR HUMERUS RIGHT 2+ VIEWS (STANDARD) 03/24/2024 5:21 pm HISTORY: ORDERING SYSTEM PROVIDED HISTORY: pain, TECHNOLOGIST PROVIDED HISTORY: Injury/Trauma Reason for exam: right elbow pain s/p fall Cancer History: . Surgery, RadiationHistory: . Encounter Type: Initial Mechanism of injury: . ORDERING SYSTEM PROVIDED DIAGNOSIS CODES: S09.90XA Closed head injury, initial encounter M25.511 Acute pain of right shoulder M25.531 Wrist pain, right COMPARISON: 08/28/2017. FINDINGS: Internal rotation, external rotation, and transscapular views of the right shoulder were obtained. Frontal and lateral radiographs of the right humerus were obtained. Frontal and lateral views of the right elbow were obtained. Frontal and lateral views of the right forearm were obtained. Frontal, lateral, and oblique radiographs of the right wrist and hand were obtained. Evaluation of the right shoulder demonstrates a comminuted and slightly impacted fracture traversing the humeral head/neck junction. There is mild AC joint hypertrophy. No dislocation is identified. The visualized portion of the right knee thorax appears to be intact. Evaluation of the right humerus demonstrates diffuse osseous demineralization. The distal right humerus is intact. No additional acute fracture is identified otherwise. Evaluation of the right elbow demonstrates diffuse osseous demineralization. The lateral view is obtained in a nonstandard fashion limiting evaluation for joint effusion. There are uphc-ud-rgfkolck degenerative changes. Within limitations of nonstandard positioning, no clearly acute right elbow fracture is identified. Plain films of the right forearm reveal diffuse osseous demineralization. No acute radius or ulnar fracture is identified. There are no retained radiopaque foreign bodies in the soft tissues. Evaluation of the right wrist demonstrates diffuse osseous demineralization. There are eejp-zr-phagbfxv degenerative changes of the radiocarpal joint and at the radial aspect of the carpus and 1st carpometacarpal articulation. There is no clearly acute fracture identified. There is no dislocation or subluxation. The carpal bones appear to be intact. Evaluation of the right hand reveals diffuse osseous demineralization. There are moderate-advanced arthritic changes identified within the metacarpophalangeal articulations and the mid and distal interphalangeal articulations, most conspicuous at the 1st-3rd rays with periarticular soft tissue swelling. No acute displaced fracture. No dislocation. No retained radiopaque foreign bodies are identified in the soft tissues. IMPRESSION: 1. There is an acute comminuted and mildly displaced/impacted humeral head/neck fracture. 2. Within limitations of diffuse osseous demineralization and nonstandard radiographic positioning, the remaining portion of the right upper extremity appears to be intact to include the distal right humerus, the right elbow, the right forearm, the right wrist, and the right hand. 3. There are superimposed moderate-advanced arthritic changes which are most conspicuous within the distal and mid interphalangeal articulations at the 1st-3rd rays suggestive of osteoarthritis with erosive component. [facility] Workstation ID: [id number] Dictated by: PAUL LOBATO on FriMar 24, 2024 7:10:10 PM EDT Transcribed by: DELMY DALY on FriMar 24, 2024 7:19:12 PM EDT Finalized by: PAUL LOBATO on FriMar 24, 2024 7:37:59 PM EDT [facility] Comment on above: Order Comment: Injur y/Trauma or Illness?:Injury/Trauma How long have you had these symptoms (acute/chronic)?:Acute Reason for exam?:right arm pain s/p fall History of cancer?:. Surgeries, chemotherapy, or radiation?:. Type of Exam?:Initial Mechanism of injury?:. XR PELVIS 1 VIEW (STANDARD)o n 03-24-2024 XR PELVIS 1 VIEW (STANDARD) EXAMINATION: XR PELVIS 1 VIEW (STANDARD) 03/24/2024 7:44 pm HISTORY: ORDERING SYSTEM PROVIDED HISTORY: s/p fall, right hip pain, TECHNOLOGIST PROVIDED HISTORY: Injury/Trauma Reason for exam: s/p fall, right hip pain Cancer History: . Surgery, RadiationHistory: . Encounter Type: Initial Mechanism of injury: . ORDERING SYSTEM PROVIDED DIAGNOSIS CODES: S09.90XA Closed head injury, initial encounter M25.511 Acute pain of right shoulder M25.531 Wrist pain, right COMPARISON: CT abdomen and pelvis 01/28/2024. FINDINGS: Single portable frontal view of the pelvis. Evaluation limited by patient body habitus and subjective decreased from mineralization. No definite acute displaced fracture of the pelvis or proximal femurs. No abnormal widening of the sacroiliac joints or pubic symphysis. Similar postsurgical and degenerative changes of the spine. IMPRESSION: No acute displaced fracture of the pelvis or proximal femurs seen. Workstation ID: [id number] Dictated by: SAI COX on FriMar 24, 2024 8:54:28 PM EDT Transcribed by: SAI COX on FriMar 24, 2024 8:54:28 PM EDT Finalized by: SAI COX on FriMar 24, 2024 8:54:28 PM EDT Normal [facility] Comment on above: Order Comment: Injur y/Trauma or Illness?:Injury/Trauma How long have you had these symptoms (acute/chronic)?:Acute Reason for exam?:s/p fall, right hip pain History of cancer?:. Surgeries, chemotherapy, or radiation?:. Type of Exam?:Initial Mechanism of injury?:. XR SHOULDER RIGHT 2+ VIEWS ( STANDARD)on 03-24-2024 XR SHOULDER RIGHT 2+ VIEWS (STANDARD) EXAMINATION: XR ELBOW RIGHT 2 VIEWS; XR FOREARM RIGHT 2 VIEWS; XR SHOULDER RIGHT 2+ VIEWS (STANDARD); XR HAND RIGHT 3+ VIEWS (STANDARD); XR WRIST RIGHT 3+ VIEWS (STANDARD); XR HUMERUS RIGHT 2+ VIEWS (STANDARD) 03/24/2024 5:21 pm HISTORY: ORDERING SYSTEM PROVIDED HISTORY: pain, TECHNOLOGIST PROVIDED HISTORY: Injury/Trauma Reason for exam: right elbow pain s/p fall Cancer History: . Surgery, RadiationHistory: . Encounter Type: Initial Mechanism of injury: . ORDERING SYSTEM PROVIDED DIAGNOSIS CODES: S09.90XA Closed head injury, initial encounter M25.511 Acute pain of right shoulder M25.531 Wrist pain, right COMPARISON: 08/28/2017. FINDINGS: Internal rotation, external rotation, and transscapular views of the right shoulder were obtained. Frontal and lateral radiographs of the right humerus were obtained. Frontal and lateral views of the right elbow were obtained. Frontal and lateral views of the right forearm were obtained. Frontal, lateral, and oblique radiographs of the right wrist and hand were obtained. Evaluation of the right shoulder demonstrates a comminuted and slightly impacted fracture traversing the humeral head/neck junction. There is mild AC joint hypertrophy. No dislocation is identified. The visualized portion of the right knee thorax appears to be intact. Evaluation of the right humerus demonstrates diffuse osseous demineralization. The distal right humerus is intact. No additional acute fracture is identified otherwise. Evaluation of the right elbow demonstrates diffuse osseous demineralization. The lateral view is obtained in a nonstandard fashion limiting evaluation for joint effusion. There are izcw-lk-irfbffsb degenerative changes. Within limitations of nonstandard positioning, no clearly acute right elbow fracture is identified. Plain films of the right forearm reveal diffuse osseous demineralization. No acute radius or ulnar fracture is identified. There are no retained radiopaque foreign bodies in the soft tissues. Evaluation of the right wrist demonstrates diffuse osseous demineralization. There are wghp-ek-mlnchnhf degenerative changes of the radiocarpal joint and at the radial aspect of the carpus and 1st carpometacarpal articulation. There is no clearly acute fracture identified. There is no dislocation or subluxation. The carpal bones appear to be intact. Evaluation of the right hand reveals diffuse osseous demineralization. There are moderate-advanced arthritic changes identified within the metacarpophalangeal articulations and the mid and distal interphalangeal articulations, most conspicuous at the 1st-3rd rays with periarticular soft tissue swelling. No acute displaced fracture. No dislocation. No retained radiopaque foreign bodies are identified in the soft tissues. IMPRESSION: 1. There is an acute comminuted and mildly displaced/impacted humeral head/neck fracture. 2. Within limitations of diffuse osseous demineralization and nonstandard radiographic positioning, the remaining portion of the right upper extremity appears to be intact to include the distal right humerus, the right elbow, the right forearm, the right wrist, and the right hand. 3. There are superimposed moderate-advanced arthritic changes which are most conspicuous within the distal and mid interphalangeal articulations at the 1st-3rd rays suggestive of osteoarthritis with erosive component. [facility] Workstation ID: [id number] Dictated by: PAUL LOBATO on FriMar 24, 2024 7:10:10 PM EDT Transcribed by: DELMY DALY on FriMar 24, 2024 7:19:12 PM EDT Finalized by: PAUL LOBATO on FriMar 24, 2024 7:37:59 PM EDT [facility] Comment on above: Order Comment: Injur y/Trauma or Illness?:Injury/Trauma How long have you had these symptoms (acute/chronic)?:Acute Reason for exam?:right shoulder pain and limited rom s/p fall History of cancer?:. Surgeries, chemotherapy, or radiation?:. Type of Exam?:Initial Mechanism of injury?:. XR WRIST RIGHT 3+ VIEWS (STA NDARD)on 03-24-2024 XR WRIST RIGHT 3+ VIEWS (STANDARD) EXAMINATION: XR ELBOW RIGHT 2 VIEWS; XR FOREARM RIGHT 2 VIEWS; XR SHOULDER RIGHT 2+ VIEWS (STANDARD); XR HAND RIGHT 3+ VIEWS (STANDARD); XR WRIST RIGHT 3+ VIEWS (STANDARD); XR HUMERUS RIGHT 2+ VIEWS (STANDARD) 03/24/2024 5:21 pm HISTORY: ORDERING SYSTEM PROVIDED HISTORY: pain, TECHNOLOGIST PROVIDED HISTORY: Injury/Trauma Reason for exam: right elbow pain s/p fall Cancer History: . Surgery, RadiationHistory: . Encounter Type: Initial Mechanism of injury: . ORDERING SYSTEM PROVIDED DIAGNOSIS CODES: S09.90XA Closed head injury, initial encounter M25.511 Acute pain of right shoulder M25.531 Wrist pain, right COMPARISON: 08/28/2017. FINDINGS: Internal rotation, external rotation, and transscapular views of the right shoulder were obtained. Frontal and lateral radiographs of the right humerus were obtained. Frontal and lateral views of the right elbow were obtained. Frontal and lateral views of the right forearm were obtained. Frontal, lateral, and oblique radiographs of the right wrist and hand were obtained. Evaluation of the right shoulder demonstrates a comminuted and slightly impacted fracture traversing the humeral head/neck junction. There is mild AC joint hypertrophy. No dislocation is identified. The visualized portion of the right knee thorax appears to be intact. Evaluation of the right humerus demonstrates diffuse osseous demineralization. The distal right humerus is intact. No additional acute fracture is identified otherwise. Evaluation of the right elbow demonstrates diffuse osseous demineralization. The lateral view is obtained in a nonstandard fashion limiting evaluation for joint effusion. There are qgyw-op-nhexzpcb degenerative changes. Within limitations of nonstandard positioning, no clearly acute right elbow fracture is identified. Plain films of the right forearm reveal diffuse osseous demineralization. No acute radius or ulnar fracture is identified. There are no retained radiopaque foreign bodies in the soft tissues. Evaluation of the right wrist demonstrates diffuse osseous demineralization. There are hsbj-xr-bgakrtec degenerative changes of the radiocarpal joint and at the radial aspect of the carpus and 1st carpometacarpal articulation. There is no clearly acute fracture identified. There is no dislocation or subluxation. The carpal bones appear to be intact. Evaluation of the right hand reveals diffuse osseous demineralization. There are moderate-advanced arthritic changes identified within the metacarpophalangeal articulations and the mid and distal interphalangeal articulations, most conspicuous at the 1st-3rd rays with periarticular soft tissue swelling. No acute displaced fracture. No dislocation. No retained radiopaque foreign bodies are identified in the soft tissues. IMPRESSION: 1. There is an acute comminuted and mildly displaced/impacted humeral head/neck fracture. 2. Within limitations of diffuse osseous demineralization and nonstandard radiographic positioning, the remaining portion of the right upper extremity appears to be intact to include the distal right humerus, the right elbow, the right forearm, the right wrist, and the right hand. 3. There are superimposed moderate-advanced arthritic changes which are most conspicuous within the distal and mid interphalangeal articulations at the 1st-3rd rays suggestive of osteoarthritis with erosive component. [facility] Workstation ID: [id number] Dictated by: PAUL LOBATO on FriMar 24, 2024 7:10:10 PM EDT Transcribed by: DELMY DALY on FriMar 24, 2024 7:19:12 PM EDT Finalized by: PAUL LOBATO on FriMar 24, 2024 7:37:59 PM EDT [facility] Comment on above: Order Comment: Injur y/Trauma or Illness?:Injury/Trauma How long have you had these symptoms (acute/chronic)?:Acute Reason for exam?:right wrist pain s/p fall History of cancer?:. Surgeries, chemotherapy, or radiation?:. Type of Exam?:Initial Mechanism of injury?:. CBC W/Diff, Automatedon 09-0 6-2023 Absolute Lymph 1.35 X10 3/uL Normal 0.83-4.51 [facility] Comment on above: Performed By: #### L 100.0100 ####[facility] [address] [place], [address] Absolute Neut 2.2 X10 3/uL Normal 2.0-7.7 [facility] Comment on above: Performed By: #### L 100.0100 ####[facility] [address] [place], [address] Basophils/100 WBC (Bld) 0.3 % Normal 0-1 [facility] Comment on above: Performed By: #### L 100.0100 ####[facility] [address] [place], [address] Eosinophils/100 WBC (Bld) 3.3 % Normal 0-5 [facility] Comment on above: Performed By: #### L 100.0100 ####[facility] [address] [place], [address] Erythrocyte distribution width (RBC) [Ratio] 14.7 % High 11.6-14.6 [facility] Comment on above: Performed By: #### L 100.0100 ####[facility] [address] [place], [address] Hematocrit (Bld) [Volume fraction] 35.5 % Low 37-47 [facility] Comment on above: Performed By: #### L 100.0100 ####[facility] [address] [place], [address] Hemoglobin (Bld) [Mass/Vol] 11.0 g/dL Low 12.0-15.0 [facility] Comment on above: Performed By: #### L 100.0100 ####[facility] [address] [place], [address] IG% 0.300 Normal 0.0-0.9 [facility] Comment on above: Result Comment: IG% - Immature Granulocytes (promyelocytes, myelocytes and metamyelocytes) > 1% indicates that a LEFT SHIFT is Present. Performed By: #### L 100.0100 ####[facility] [address] [place], [address] Lymphocytes/100 WBC (Bld) 34.0 % Normal 19-41 [facility] Comment on above: Performed By: #### L 100.0100 ####[facility] [address] [place], [address] MCH (RBC) [Entitic mass] 31.5 pg Normal 27.0-32.0 [facility] Comment on above: Performed By: #### L 100.0100 ####[facility] [address] [place], [address] MCHC (RBC) [Mass/Vol] 31.0 g/dL Low 32-36 [facility] Comment on above: Performed By: #### L 100.0100 ####[facility] [address] [place], [address] MCV (RBC) [Entitic vol] 101.7 fL High 81-99 [facility] Comment on above: Performed By: #### L 100.0100 ####[facility] [address] [place], [address] Monocytes/100 WBC (Bld) 7.6 % Normal 0-10 [facility] Comment on above: Performed By: #### L 100.0100 ####[facility] [address] [place], [address] Neutrophils/100 WBC (Bld) 54.5 % Normal 47-70 [facility] Comment on above: Performed By: #### L 100.0100 ####[facility] [address] [place], [address] Nucleated RBC (Bld) [#/Vol] 0 10*3/uL Normal 0-5 [facility] Comment on above: Performed By: #### L 100.0100 ####[facility] [address] [place], [address] Platelet mean volume (Bld) [Entitic vol] 10.4 fL Normal 6.2-12.0 [facility] Comment on above: Performed By: #### L 100.0100 ####[facility] [address] [place], [address] Platelets (Bld) [#/Vol] 173 10*3/uL Normal 150-450 [facility] Comment on above: Performed By: #### L 100.0100 ####[facility] [address] [place], [address] RBC (Bld) [#/Vol] 3.49 10*6/uL Low 4.2-5.4 [facility] Comment on above: Performed By: #### L 100.0100 ####[facility] [address] [place], [address] RDW SD 55.0 fl High 35.1-43.9 [facility] Comment on above: Performed By: #### L 100.0100 ####[facility] [address], [address] WBC (Bld) [#/Vol] 4.0 10*3/uL Low 4.4-11.0 [facility] Comment on above: Performed By: #### L 100.0100 ####[facility] [address] [place], [address] Internal Medicine Office Vis yaneth 02-20-2024 Internal Medicine Office Visit [facility] [place] [address] [place] [address] OFFICE VISIT Date of Service: 02/20/24 MR#: [id number] Acct: [id number] Name: CAROLYN CINTRON Rep #: [id number] : 1945 Provider: GERRI Fraser Age/Sex: 78/F Location: [facility] [place] Status: Signed Intake Vital Signs 01/12/24 13:10 02/20/24 10:58 Height 5 ft 5 in 5 ft 3 in Weight: 202 lb BMI 35.7 BP 144/68 H Blood Pressure Location Lt brachial Position Sitting Respiration 16 Pulse 75 Pulse Source Monitor Temp 98.8 F Temp Source Temporal Pulse Oximetry (%) 96 Oxygen Delivery Method room air Intake Visit Reasons: CDIFF FU Chief Complaint: CDIFF FU Is patient in pain?: Yes (8 in ABD ) Allergies Sulfa (Sulfonamide Antibiotics) Adverse Reaction (Severe, Verified 02/20/24 10:54) Upset Stomach cephalexin (From Keflex) Adverse Reaction (Verified 02/20/24 10:54) Nausea/Vom/Diarrhea Medications ???Medication ???Instructions ???Recorded ???Confirmed ???Type pantoprazole 40 mg tablet,delayed 40 mg PO QDAY 07/15/17 02/20/24 History release potassium chloride 20 mEq 20 meq PO QDAY 07/15/17 02/20/24 History tablet,extended release(part/cryst) (Klor-Con M) insulin syringe-needle U-100 0.3 #350 ea 07/17/17 01/12/24 Rx mL 31 gauge x 5/16 (BD Insulin Syringe Ultra-Fine) pen needle, diabetic 32 gauge x #350 ea 02/19/18 01/12/24 Rx 5/32 (BD Ultra-Fine Christy Pen Needle) cholecalciferol (vitamin D3) 25 1,000 unit PO DAILY 06/23/18 02/20/24 History mcg (1,000 unit) capsule aspirin 81 mg tablet,delayed 81 mg PO DAILY 07/24/20 02/20/24 History release mecobalamin (vitamin B12) 1,000 1,000 mcg PO DAILY 07/24/20 02/20/24 History mcg chewable tablet blood sugar diagnostic #100 ea 12/18/20 01/12/24 Rx allopurinol 300 mg tablet 300 mg PO DAILY 06/04/21 02/20/24 History icosapent ethyl 1 gram capsule 2 g (2 x 1 gram) PO BID #120 caps 11/05/21 02/20/24 Rx (Vascepa) omega-3 fatty acids 1,000 mg 1,000 mg PO BID 01/23/23 02/20/24 History capsule polyethylene glycol 3350 17 4 g PO DAILY PRN 01/23/23 02/20/24 History gram/dose oral powder (Miralax) trazodone 50 mg tablet 50 mg PO DAILY 01/23/23 02/20/24 History pen needle, diabetic 32 gauge x #150 ea 05/05/23 01/12/24 Rx /32 (BD Ultra-Fine Christy Pen Needle) blood sugar diagnostic (OneTouch #100 ea 05/20/23 01/12/24 Rx Ultra Test strips) tramadol 25 mg tablet 25 mg PO BID PRN 09/01/23 02/20/24 History flash glucose sensor (FreeStyle #2 ea 10/02/23 01/12/24 Rx Nomi 2 Sensor kit) furosemide 20 mg tablet 20 mg PO QDAY #90 tabs 10/13/23 02/20/24 Rx metoprolol succinate 50 mg 25 mg (1/2 x 50 mg) PO BID #180 10/13/23 02/20/24 Rx tablet,extended release 24 hr tabs Novolog FlexPen U-100 Insulin 100 40 unit (0.4 mL) subcut TID #48 mL 01/01/24 02/20/24 Rx unit/mL (3 mL) subcutaneous (insulin aspart U-100) fluticasone propionate 50 1 spray intranasal DAILY PRN 01/01/24 02/20/24 History mcg/actuation nasal spray,suspension montelukast 10 mg tablet 10 mg PO DAILY #90 tabs 01/12/24 02/20/24 Rx rosuvastatin 20 mg tablet 20 mg PO QDAY #90 tabs 01/12/24 02/20/24 Rx fenofibrate micronized 134 mg 134 mg PO DAILY #90 caps 01/23/24 02/20/24 Rx capsule levothyroxine 112 mcg tablet 112 mcg PO DAILY #90 tabs 01/23/24 02/20/24 Rx lisinopril 10 mg tablet 10 mg PO DAILY #90 tabs 01/23/24 02/20/24 Rx loratadine 10 mg tablet 10 mg PO DAILY PRN for allergies 01/28/24 02/20/24 Rx #90 TABLETS fidaxomicin 200 mg tablet 200 mg PO Q12H 10 days #20 tabs 02/20/24 02/20/24 Rx insulin degludec 200 unit/mL (3 55 unit subcut QHS 02/20/24 History mL) subcutaneous pen (Tresiba FlexTouch U-200 insulin) Have you fallen in the past year?: No Nurse's Note: pt states that she has been done with her vancomycin for 2 wks (this was 2nd round of ATB) pt states that 2 days after finishing ATB her Diarrhea returned she stated she has loose stool every 2hrs pt states this diarrhea returned after her first Vanco round as well. [facility] Medical History Bilateral pseudophakia Amblyopia of left eye Dry eye syndrome of bilateral lacrimal glands Acute allergic conjunctivitis of both eyes Hypertriglyceridemia Encounter for long-term (current) insulin use Shingles Thyroid disease Skin cancer High cholesterol Gout Diabetes type 2, controlled Back problem Seasonal allergies Surgical History Status post Mohs surgery History of knee replacement History of carpal tunnel release Hx of hernia repair H/O total hysterectomy Hx of cataract surgery Hx of cholecystectomy History of back surgery Family History ... Normal [facility] CT ABDOMEN PELVIS WITHOUT CO NTRASTon 01-28-2024 CT ABDOMEN PELVIS WITHOUT CONTRAST EXAM: CT ABDOMEN PELVIS WITHOUT CONTRAST DATE: 01/28/2024 5:04 pm TECHNIQUE: Axial CT images were obtained through the abdomen and pelvis without intravenous contrast administration. Multiplanar reformatted images also created. Dose reduction techniques were achieved by using automated exposure control and/or adjustment of mA and/or kV according to patient size and/or use of iterative reconstruction technique. HISTORY: ORDERING SYSTEM PROVIDED HISTORY: Abd pain, diarrhea, TECHNOLOGIST PROVIDED HISTORY: Illness/Other Reason for exam: nausea, vomiting, diarrhea that started again after finishing her vancomycin for c-difficile Encounter Type: Initial Additional signs and symptoms: . ORDERING SYSTEM PROVIDED DIAGNOSIS CODES: COMPARISON: 01/09/2024 FINDINGS: Lower chest: Lower lung mendenhall are clear. Liver: Nodular contours of the liver which could suggest cirrhosis. The liver is enlarged up to 20 cm in length. Gallbladder: Status post cholecystectomy. No significant biliary dilatation. Pancreas: The pancreas is homogeneous without evidence for mass lesion or inflammation. Spleen: The spleen is unremarkable without evidence for mass lesion. Adrenals: The adrenal glands are unremarkable Kidneys and bladder: The kidneys are unremarkable with no evidence for mass lesion, hydronephrosis or inflammation.No obstructing urinary tract stone.The ureters demonstrate normal caliber.The urinary bladder is unremarkable. GI tract: Stomach is unremarkable.Visualized small bowel is unremarkable without evidence for obstruction or active inflammation. The appendix is not visualized. There is no CT evidence for acute appendicitis. Multiple segments of colon wall thickening including the distal rectum, mid sigmoid colon and cecum. Reproductive: The uterus has been removed. Lymph nodes: No retroperitoneal or abdominal lymphadenopathy. Vascular: The aorta demonstrates normal caliber. Peritoneum: No free intraperitoneal air or free fluid. Abdominal wall and Skeletal: Degenerative and postsurgical changes of the lumbar spine. __ IMPRESSION: Multiple segments of [id number] colonic wall thickening suspicious for inflammatory or infectious colitis. Cirrhotic appearance of the liver. Workstation ID: [id number] Dictated by: HORACE AYON on FriJan 28, 2024 6:30:26 PM EDT Transcribed by: HORACE AYON on FriJan 28, 2024 6:30:26 PM EDT Finalized by: HORACE AYON on FriJan 28, 2024 6:30:26 PM EDT [facility] Comment on above: Order Comment: Injur y/Trauma or Illness?:Illness/Other How long have you had these symptoms (acute/chronic)?:Acute Reason for exam?:nausea, vomiting, diarrhea that started again after finishing her vancomycin for c-difficile Type of Exam?:Initial Additional signs and symptoms?:. ED Prov Noteon 01-28-2024 ED Prov Note PCP - Ryan Gomez MD Chief Complaint Patient presents with Abdominal Pain Nausea Emesis Diarrhea NILA Leon is a pleasant 78-year-old female presenting here for evaluation of nausea, an episode of nonbloody emesis and a few episodes of watery nonbloody diarrhea over the last couple days with some mild abdominal cramping similar to recent episode of C. difficile colitis. She notes that she had completed 10-day course of vancomycin with transient resolution of symptoms, but after she finished antibiotics a few days ago the symptoms returned. No fever, shaking chills, dizziness or lightheadedness, chest pain, shortness of breath, urinary symptoms. MDM/COURSE I did personally review Carolyn's past medical history, surgical history, social history, as well as family history (when relevant). In this case, I also oversaw the her drug management by reviewing her medication list, allergy list, as well as the medications that I prescribed during the ED course and/or recommended as an out-patient (including possible OTC medications such as acetaminophen, NSAIDs , etc). 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 05/31/2015 Diaphragmatic hernia 02/20/2012 Diverticulosis of large intestine 02/20/2012 Family history of malignant neoplasm of gastrointestinal tract 02/20/2012 Gastroesophageal reflux disease 01/10/2012 Hypercholesterolemia 01/10/2012 Vitreous floaters 05/25/2014 Senile cataract 05/25/2014 Special screening for malignant neoplasms, colon 02/20/2012 Type 1 diabetes mellitus (HCC) 05/25/2014 Type 2 diabetes mellitus (HCC) 02/07/2011 Status post total left knee replacement 06/21/2015 Chronic left-sided low back pain with left-sided sciatica 04/01/2017 Left hip pain 04/01/2017 Uncontrolled type 2 diabetes mellitus with hyperglycemia (HCC) 03/18/2019 Essential hypertension 03/18/2019 Past Medical History: Diagnosis Date Asthma Diabetes mellitus (HCC) Gout High cholesterol Hypothyroid Shigella dysentery Skin cancer ED MEDICATIONS GIVEN: Medications lactated ringers bolus 1,000 mL (0 mL Intravenous Stopped 01/28/241941) ondansetron (ZOFRAN) injection 4 mg (4 mg Intravenous Given 01/28/24 173) After reviewing the items above, I did look at previous medical documentation, such as recent hospitalizations, office visits, and/or recent consultations with PCP/specialist. SDOH: Another factor that I considered in Carolyn's care was her Social Determinants of Health (SDOH). During this ED encounter, she did NOT appear to have any significant issues identified. LAB TESTING: Labs were obtained during this encounter. Labs were compared to prior values patient with chronic kidney disease and mild anemia at baseline. RADIOLOGY: I did consider radiological studies for Carolyn's care today. Radiology testing was notable for patient with some colitis without obstruction, free air or fluid on my independent review of CT abdomen and pelvis DIFFERENTIAL DIAGNOSES: Some general clinical impressions that I considered included C. 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 White blood cells and lactic acid are normal. Abdominal exam is benign. She would like to try repeat course of vancomycin with plan for close primary care follow-up and likely GI referral. She will have low threshold to return if worse On this particular ED encounter, I did utilize shared decision making. After consideration of the risks of hospitalization such as nosocomial infections, falls, thromboembolic disease as well as being discharged(worsening condition or complications up to cardiopulmonary arrest) at this time the most appropriate disposition for Carolyn is Discharged . IMPRESSION 1. C. difficile colitis Past Medical History Past Medical History: Diagnosis Date Asthma Diabetes mellitus (HCC) Gout High cholesterol 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 Hypothyroid Shigella dysentery Skin cancer Past Surgical History Past Surgical History: Procedure Laterality Date CARPAL TUNNEL RELEASE Bilateral CHOLECYSTECTOMY 1993 COLONOSCOPY 1998 LAMINECTOMY DISC LUMBAR SINGLE LEVEL 10/15/2011 SKIN CANCER EXCISION 03/08/2021 left shoulder/Right cheek GABO/BSO 1980 TOTAL KNEE ARTHROPLASTY Bilateral UMBILICAL HERNIA REPAIR Family History Family History Problem Relation Age of Onset Diabetes Mother Heart disease Mother Colon (more content not included)... Normal [facility] POC CBC AND DIFFERENTIALon 0 01-28-2024 BASOPHILS ABSOLUTE COUNT 0.02 K/mcL Normal 0.00-0.30 [facility] Basophils/100 WBC (Bld) 0.2 % Normal [facility] Eosinophils (Bld) [#/Vol] 0.19 10*3/uL Normal 0.00-0.50 [facility] Eosinophils/100 WBC (Bld) 1.8 % Normal [facility] Erythrocyte distribution width (RBC) [Ratio] 15.3 % High 11.6-14.8 [facility] Hematocrit (Bld) [Volume fraction] 33.5 % Low 36.0-46.0 [facility] Hemoglobin (Bld) [Mass/Vol] 10.7 g/dL Low 12.0-16.0 [facility] IG ABSOLUTE 0.01 K/mcL Normal 0.00-0.30 [facility] IG PERCENT 0.10 % Normal [facility] Comment on above: Result Comment: The IG parameter is the percentage of metamyelocytes, myelocytes and promyelocytes. An immature granulocyte count (IG) of 1% or more suggests the possibility of infection, an IG count of 3% is very likely related to an infection. Lymphocytes (Bld) [#/Vol] 1.46 10*3/uL Normal 0.90-4.00 [facility] Lymphocytes/100 WBC (Bld) 13.6 % Normal [facility] MCH (RBC) [Entitic mass] 32.8 pg Normal 26.0-34.0 [facility] MCV (RBC) [Entitic vol] 102.8 fL High 80.0-100.0 [facility] MEAN CORPUSCULAR HEMOGLOBIN CONC 31.9 g/dL Normal 31.0-37.0 [facility] Monocytes (Bld) [#/Vol] 0.82 10*3/uL Normal 0.30-0.90 [facility] Monocytes/100 WBC (Bld) 7.6 % Normal [facility] NEUTROPHILS ABSOLUTE COUNT 8.22 K/mcL High 1.70-7.00 [facility] Neutrophils/100 WBC (Bld) 76.7 % Normal [facility] Platelet mean volume (Bld) [Entitic vol] 9.5 fL Normal 9.4-12.4 [facility] Platelets (Bld) [#/Vol] 202 10*3/uL Normal 150-400 [facility] RBC (Bld) [#/Vol] 3.26 10*6/uL Low 4.00-5.20 [facility] WBC (Bld) [#/Vol] 10.72 10*3/uL Normal 4.50-11.00 [facility] POC LIVER PANEL PLUS Amita 01-28-2024 Albumin [Mass/Vol] 3.6 g/dL Normal 3.2-5.2 [facility] ALP [Catalytic activity/Vol] 42 U/L Normal 40-150 [facility] ALT [Catalytic activity/Vol] 18 U/L Normal 0-40 [facility] Amylase [Catalytic activity/Vol] 36 U/L Normal 25-115 [facility] Amylase [Catalytic activity/Vol] 66 U/L High 7-33 [facility] AST [Catalytic activity/Vol] 25 U/L Normal 0-45 [facility] Bilirubin [Mass/Vol] 0.6 mg/dL Normal 0.0-1.3 [facility] Protein [Mass/Vol] 7.6 g/dL Normal 6.0-8.0 [facility] POC VBG (EPOC) WITH FULL KWON SLOANE Levi 01-28-2024 BASE EXCESS, VENOUS -0.1 Normal -2.0-2.0 [facility] Comment on above: Order Comment: [facility] has implemented the eGFR calculation approach that does not have a coefficient for race that conforms to the NKF-ASN Task Force Recommendations. Specimens collected in a lithium heparin tube may show erroneous pO2, pCO2 and related calculations due to aerobic handling. If the most accurate venous blood gas results are needed, use a heparinized blood gas syringe. CALCIUM IONIZED 4.9 mg/dL Normal 4.5-5.3 [facility] Comment on above: Order Comment: [facility] has implemented the eGFR calculation approach that does not have a coefficient for race that conforms to the NKF-ASN Task Force Recommendations. Specimens collected in a lithium heparin tube may show erroneous pO2, pCO2 and related calculations due to aerobic handling. If the most accurate venous blood gas results are needed, use a heparinized blood gas syringe. Chloride [Moles/Vol] 105 mmol/L Normal 98-108 [facility] Comment on above: Order Comment: [facility] has implemented the eGFR calculation approach that does not have a coefficient for race that conforms to the NKF-ASN Task Force Recommendations. Specimens collected in a lithium heparin tube may show erroneous pO2, pCO2 and related calculations due to aerobic handling. If the most accurate venous blood gas results are needed, use a heparinized blood gas syringe. Creatinine [Mass/Vol] 1.54 mg/dL High 0.60-1.20 [facility] Comment on above: Order Comment: [facility] has implemented the eGFR calculation approach that does not have a coefficient for race that conforms to the NKF-ASN Task Force Recommendations. Specimens collected in a lithium heparin tube may show erroneous pO2, pCO2 and related calculations due to aerobic handling. If the most accurate venous blood gas results are needed, use a heparinized blood gas syringe. Glucose [Mass/Vol] 161 mg/dL High 65-99 [facility] Comment on above: Order Comment: [facility] has implemented the eGFR calculation approach that does not have a coefficient for race that conforms to the NKF-ASN Task Force Recommendations. Specimens collected in a lithium heparin tube may show erroneous pO2, pCO2 and related calculations due to aerobic handling. If the most accurate venous blood gas results are needed, use a heparinized blood gas syringe. HCO3 (Bld) [Moles/Vol] 25.7 mmol/L Normal 24.0-28.0 [facility] Comment on above: Order Comment: [facility] has implemented the eGFR calculation approach that does not have a coefficient for race that conforms to the NKF-ASN Task Force Recommendations. Specimens collected in a lithium heparin tube may show erroneous pO2, pCO2 and related calculations due to aerobic handling. If the most accurate venous blood gas results are needed, use a heparinized blood gas syringe. Hematocrit (Bld) [Volume fraction] 35 % Low 36-46 [facility] Comment on above: Order Comment: [facility] has implemented the eGFR calculation approach that does not have a coefficient for race that conforms to the NKF-ASN Task Force Recommendations. Specimens collected in a lithium heparin tube may show erroneous pO2, pCO2 and related calculations due to aerobic handling. If the most accurate venous blood gas results are needed, use a heparinized blood gas syringe. HEMOGLOBIN, CALCULATED 12.0 g/dL Normal 12.0-16.0 [facility] Comment on above: Order Comment: [facility] has implemented the eGFR calculation approach that does not have a coefficient for race that conforms to the NKF-ASN Task Force Recommendations. Specimens collected in a lithium heparin tube may show erroneous pO2, pCO2 and related calculations due to aerobic handling. If the most accurate venous blood gas results are needed, use a heparinized blood gas syringe. Oxygen saturation in Blood 65.9 % Normal 40.0-70.0 [facility] Comment on above: Order Comment: [facility] has implemented the eGFR calculation approach that does not have a coefficient for race that conforms to the NKF-ASN Task Force Recommendations. Specimens collected in a lithium heparin tube may show erroneous pO2, pCO2 and related calculations due to aerobic handling. If the most accurate venous blood gas results are needed, use a heparinized blood gas syringe. PCO2 VENOUS 45.7 mm Hg Normal 41.0-51.0 [facility] Comment on above: Order Comment: [facility] has implemented the eGFR calculation approach that does not have a coefficient for race that conforms to the NKF-ASN Task Force Recommendations. Specimens collected in a lithium heparin tube may show erroneous pO2, pCO2 and related calculations due to aerobic handling. If the most accurate venous blood gas results are needed, use a heparinized blood gas syringe. PH VENOUS 7.36 Normal 7.32-7.42 [facility] Comment on above: Order Comment: [facility] has implemented the eGFR calculation approach that does not have a coefficient for race that conforms to the NKF-ASN Task Force Recommendations. Specimens collected in a lithium heparin tube may show erroneous pO2, pCO2 and related calculations due to aerobic handling. If the most accurate venous blood gas results are needed, use a heparinized blood gas syringe. PO2 VENOUS 36 mm Hg Normal 25-40 [facility] Comment on above: Order Comment: [facility] has implemented the eGFR calculation approach that does not have a coefficient for race that conforms to the NKF-ASN Task Force Recommendations. Specimens collected in a lithium heparin tube may show erroneous pO2, pCO2 and related calculations due to aerobic handling. If the most accurate venous blood gas results are needed, use a heparinized blood gas syringe. POC GFR 34 mL/min/1.73 m2 Low >=60 [facility] Comment on above: Order Comment: [facility] has implemented the eGFR calculation approach that does not have a coefficient for race that conforms to the NKF-ASN Task Force Recommendations. Specimens collected in a lithium heparin tube may show erroneous pO2, pCO2 and related calculations due to aerobic handling. If the most accurate venous blood gas results are needed, use a heparinized blood gas syringe. Result Comment: Chloé mated GFR was calculated using the 2020 CKD-EPI creatinine equation. POC LACTATE 1.4 mmol/L Normal 0.6-2.0 [facility] Comment on above: Order Comment: [facility] has implemented the eGFR calculation approach that does not have a coefficient for race that conforms to the NKF-ASN Task Force Recommendations. Specimens collected in a lithium heparin tube may show erroneous pO2, pCO2 and related calculations due to aerobic handling. If the most accurate venous blood gas results are needed, use a heparinized blood gas syringe. Potassium [Moles/Vol] 4.6 mmol/L Normal 3.5-5.1 [facility] Comment on above: Order Comment: [facility] has implemented the eGFR calculation approach that does not have a coefficient for race that conforms to the NKF-ASN Task Force Recommendations. Specimens collected in a lithium heparin tube may show erroneous pO2, pCO2 and related calculations due to aerobic handling. If the most accurate venous blood gas results are needed, use a heparinized blood gas syringe. Sodium [Moles/Vol] 139 mmol/L Normal 135-145 [facility] Comment on above: Order Comment: [facility] has implemented the eGFR calculation approach that does not have a coefficient for race that conforms to the NKF-ASN Task Force Recommendations. Specimens collected in a lithium heparin tube may show erroneous pO2, pCO2 and related calculations due to aerobic handling. If the most accurate venous blood gas results are needed, use a heparinized blood gas syringe. Urea nitrogen [Mass/Vol] 20 mg/dL Normal 8-25 [facility] Comment on above: Order Comment: [facility] has implemented the eGFR calculation approach that does not have a coefficient for race that conforms to the NKF-ASN Task Force Recommendations. Specimens collected in a lithium heparin tube may show erroneous pO2, pCO2 and related calculations due to aerobic handling. If the most accurate venous blood gas results are needed, use a heparinized blood gas syringe. CT ABDOMEN PELVIS WITHOUT CO NTRASTon 01-09-2024 CT ABDOMEN PELVIS WITHOUT CONTRAST EXAMINATION: CT ABDOMEN PELVIS WITHOUT CONTRAST HISTORY: Injury/Trauma or Illness?:Illness/Other How long have you had these symptoms (acute/chronic)?:AcuteA bdominal pain, acute, nonlocalized COMPARISON: None. TECHNIQUE: Contiguous axial images were obtained from the lung bases to the pelvic floor without intravenous or oral contrast. Coronal and sagittal reformations are provided. FINDINGS: LOWER LUNGS: Clear. LIVER/BILIARY TREE: No discrete lesion. No intrahepatic ductal dilatation. There is mild nodular contour of the liver. Mild hepatomegaly. GALLBLADDER: Status post cholecystectomy.. CBD: Normal CBD. SPLEEN: Normal in size.No discrete lesion. PANCREAS: No appreciable peripancreatic fluid. No pancreatic ductal dilatation. No discrete lesion. ADRENALS: Normal. KIDNEYS: No discrete mass.No hydronephrosis.No radiopaque calculus. STOMACH AND BOWEL: Stomach is unremarkable. No dilated bowel loops.There is mild thickening of the right colon. There is mild stranding surrounding the ascending colon. Colonic diverticulosis without acute diverticulitis. APPENDIX: Not visualized. PERITONEAL CAVITY: There is mild stranding surrounding the ascending colon ABDOMINAL WALL: No subcutaneous stranding. No subcutaneous fluid collection. LYMPH NODES: No mesenteric or retroperitoneal lymphadenopathy by CT criteria. ABDOMINAL AORTA: No aneurysm. PELVIS: No acute abnormality. MUSCULOSKELETAL: No acute osseous abnormality. Intact L3-4 posterior fusion hardware. IMPRESSION: 1. Mild thickening of the right colon. Correlate for colitis. 2. Mild nodular contour of the liver which can be seen with hepatocellular disease. Workstation ID: [id number] Dictated by: AYAZ OH on FriJan 09, 2024 3:34:45 PM EDT Transcribed by: AYAZ OH on FriJan 09, 2024 3:34:45 PM EDT Finalized by: AYAZ OH on FriJan 09, 2024 3:34:45 PM EDT [facility] Comment on above: Order Comment: Injur y/Trauma or Illness?:Illness/OtherHow long have you had these symptoms (acute/chronic)?:AcuteReason for exam?:diarrhea and abd pain and cramping for 1 week and worse with feeling dehydrated today.Type of Exam?:InitialAdditional signs and symptoms?:past hx of infection from well water, suspects the same thing ED Prov Noteon 01-09-2024 ED Prov Note ED PROVIDER NOTE [facility] EMERGENCY DEPARTMENT NAME: Carolyn Cintron AGE: 78 y.o. : 1945 VISIT DATE: 01/09/2024 CSN: [id number] PCP: Ryan Gomez MD Chief Complaint Patient presents with Diarrhea Chief complaint diarrhea History of present illness this is 78-year-old female who has a history of diabetes and prior history of Shigella dysentery from well water she was exposed to well water for 10 days she has had generalized abdominal pain diarrhea nausea anorexia poor p.o. intake. She has not sought any medical attention and is here for assessment. Past Medical History: Diagnosis Date Asthma Diabetes mellitus (HCC) Gout High cholesterol 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 Hypothyroid Shigella dysentery Skin cancer Past Surgical History: Procedure Laterality Date CARPAL TUNNEL RELEASE Bilateral CHOLECYSTECTOMY 1993 COLONOSCOPY 1998 LAMINECTOMY DISC LUMBAR SINGLE LEVEL 10/15/2011 SKIN CANCER EXCISION 03/08/2021 left shoulder/Right cheek GABO/BSO 1979 TOTAL KNEE ARTHROPLASTY Bilateral UMBILICAL HERNIA REPAIR Family History Problem Relation Age of Onset Diabetes Mother Heart disease Mother Colon cancer Father Diabetes Sister Heart disease Sister Diabetes Brother Diabetes Son Diabetes Brother Heart disease Brother Diabetes Sister Heart disease Sister Diabetes Sister Social History Socioeconomic History Marital status: Tobacco Use Smoking status: Never Smokeless tobacco: Never Vaping Use Vaping status: Never Used Substance and Sexual Activity Alcohol use: No Drug use: No Previous Medications Medication Sig aspirin 81 MG EC tablet Take 1 (one) tablet (81 mg total) by mouth daily . blood sugar diagnostic (glucose blood) strips Use to test 6 times per day. DG code E11.65. Use what coordinates with pt meter. . blood sugar diagnostic (ONETOUCH ULTRA BLUE TEST STRIP) strips One touch ultra blue strips - use to check BG 6x a day.DX code E11.65 . blood sugar diagnostic (OneTouch Verio test strips) strips USe to check BG 4x daily, DX code E11.65 insulin used . blood sugar diagnostic (ONETOUCH VERIO) strips Use as directed 6 times/day One Touch Verio strips . cholecalciferol, vitamin D3, 25 mcg (1,000 unit) capsule Take 1 (one) capsule (1,000 Units total) by mouth 2 (two) times a day . cyanocobalamin (B-12) 1000 MCG tablet Take 1 (one) tablet (1,000 mcg total) by mouth daily . fenofibrate micronized (LOFIBRA) 134 MG capsule TAKE 1 CAPSULE BY MOUTH DAILY. TAKE WITH FOOD. fluticasone (FLONASE) 50 mcg/actuation nasal spray Instill 1 (one) spray into each nostril daily . furosemide (LASIX) 20 MG tablet Take 1 (one) tablet (20 mg total) by mouth every other day . insulin degludec (Tresiba FlexTouch U-200) 200 unit/mL (3 mL) InPn Inject under the skin . Klor-Con M20 20 mEq tablet Take 1 (one) tablet (20 mEq total) by mouth every other day . levothyroxine (SYNTHROID, LEVOTHROID) 112 MCG tablet Take 1 (one) tablet (112 mcg total) by mouth once daily . lisinopriL (PRINIVIL,ZESTRIL) 10 MG tablet Take 1 (one) tablet (10 mg total) by mouth daily . loratadine (Claritin Liqui-Gel) 10 mg cap Take by mouth daily . MAGNESIUM OXIDE ORAL Take 800 mg by mouth every other day . metoprolol tartrate (LOPRESSOR) 50 MG tablet TAKE 0.5 (ONE-HALF) TABLET (25 MG TOTAL) BY MOUTH 2 (TWO) TIMES A DAY . montelukast (SINGULAIR) 10 mg tablet Take 1 (one) tablet (10 mg total) by mouth daily . NovoLIN N NPH U-100 Insulin 100 unit/mL injection Use as directed twice daily, approx 85 units daily (Needs Reli-on brand) . NovoLIN R Regular U-100 Insuln 100 unit/mL injection USE DIRECTED THREE TIMES DAILY INJECTING UP TO 80 UNITS PER DAY . (Patient taking differently: USE DIRECTED THREE TIMES DAILY .) OMEGA-3 FATTY ACIDS-FISH OIL ORAL Take 1 g by mouth 2 (two) times a day . pantoprazole (PROTONIX) 40 MG tablet Take 1 (one) tablet (40 mg total) by mouth daily . rosuvastatin (CRESTOR) 20 MG tablet Take 1 (one) tablet (20 mg total) by mouth daily . therapeutic multivitamin (THERAGRAN) tablet Take 1 (one) tablet by mouth daily . traMADol (ULTRAM) 50 mg tablet Take 1 (one) tablet (50 mg total) by mouth every 4 (four) hours as needed for pain . traZODone (DESYREL) 50 MG tablet Take by mouth nightly as needed for sleep. Allergies Allergen Reactions Atorvastatin Other (See Comments) Exenatide Other (See Comments) Other reaction(s): Intolerance pancreatitis, though managed as outpatient pancreatitis, though managed as outpatient Keflex [Cephalexin] GI Intolerance Lovastatin Other (See Comments) Sulfa (Sulfonamide Antibiotics) Unknown When patient had surgery, surgeon stated she had an allergic reaction to sulfa. No further information available from patient. Review of Systems Constitutional: Positive for activity change, appetite change and fatigue. All other systems reviewed and are ne (more content not included)... [facility] Internal Medicine Office Vis yaneth 01-09-2024 Internal Medicine Office Visit [facility] [address] [place] [address] [place] [address] OFFICE VISIT Date of Service: 01/12/24 MR#: [id number] Acct: [id number] Name: CAROLYN CINTRON Rep #: [id number] : 1945 Provider: Dr. Ramón alonso MD Age/Sex: 78/F Location: [facility] [place] Status: Signed Intake Vital Signs 10/13/23 13:04 01/01/24 10:28 01/12/24 13:10 Height 5 ft 5 in 5 ft 5 in 5 ft 5 in Weight: 206 lb BMI 34.2 BP 128/60 H Blood Pressure Location Lt brachial Position Sitting Respiration 17 Pulse 81 Pulse Source Monitor Temp 96.6 F L Temp Source Temporal Pulse Oximetry (%) 96 Oxygen Delivery Method room air Intake Visit Reasons: 3 M FU Chief Complaint: 3 M FU Is patient in pain?: No Allergies Sulfa (Sulfonamide Antibiotics) Adverse Reaction (Severe, Verified 01/12/24 13:08) Upset Stomach cephalexin (From Keflex) Adverse Reaction (Verified 01/12/24 13:08) Nausea/Vom/Diarrhea Medications ???Medication ???Instructions ???Recorded ???Confirmed ???Type pantoprazole 40 mg tablet,delayed 40 mg PO QDAY 07/15/17 01/12/24 History release potassium chloride 20 mEq 20 meq PO QDAY 07/15/17 01/12/24 History tablet,extended release(part/cryst) (Klor-Con M) insulin syringe-needle U-100 0.3 #350 ea 07/17/17 01/12/24 Rx mL 31 gauge x 5/16 (BD Insulin Syringe Ultra-Fine) pen needle, diabetic 32 gauge x #350 ea 02/19/18 01/12/24 Rx 5/32 (BD Ultra-Fine Christy Pen Needle) cholecalciferol (vitamin D3) 25 1,000 unit PO DAILY 06/23/18 01/12/24 History mcg (1,000 unit) capsule aspirin 81 mg tablet,delayed 81 mg PO DAILY 07/24/20 01/12/24 History release fenofibrate micronized 134 mg 134 mg PO DAILY 07/24/20 01/12/24 History capsule mecobalamin (vitamin B12) 1,000 1,000 mcg PO DAILY 07/24/20 01/12/24 History mcg chewable tablet blood sugar diagnostic #100 ea 12/18/20 01/12/24 Rx levothyroxine 112 mcg tablet 112 mcg PO DAILY 12/18/20 01/12/24 History allopurinol 300 mg tablet 300 mg PO DAILY 06/04/21 01/12/24 History icosapent ethyl 1 gram capsule 2 g (2 x 1 gram) PO BID #120 caps 11/05/21 01/12/24 Rx (Vascepa) omega-3 fatty acids 1,000 mg 1,000 mg PO BID 01/23/23 01/12/24 History capsule polyethylene glycol 3350 17 4 g PO DAILY PRN 01/23/23 01/12/24 History gram/dose oral powder (Miralax) trazodone 50 mg tablet 50 mg PO DAILY 01/23/23 01/12/24 History pen needle, diabetic 32 gauge x #150 ea 05/05/23 01/12/24 Rx 5/32 (BD Ultra-Fine Christy Pen Needle) blood sugar diagnostic (OneTouch #100 ea 05/20/23 01/12/24 Rx Ultra Test strips) tramadol 25 mg tablet 25 mg PO BID PRN 09/01/23 01/12/24 History flash glucose sensor (FreeStyle #2 ea 10/02/23 01/12/24 Rx Nomi 2 Sensor kit) furosemide 20 mg tablet 20 mg PO QDAY #90 tabs 10/13/23 01/12/24 Rx metoprolol succinate 50 mg 25 mg (1/2 x 50 mg) PO BID #180 10/13/23 01/12/24 Rx tablet,extended release 24 hr tabs loratadine 10 mg tablet (Claritin) 10 mg PO DAILY PRN allergic 11/06/23 01/12/24 Rx symptoms #90 tabs lisinopril 10 mg tablet 10 mg PO DAILY #90 tabs 11/21/23 01/12/24 Rx Tresiba FlexTouch U-200 200 70 unit (0.35 mL) subcut QHS #12 mL 12/11/23 01/12/24 Rx unit/mL (3 mL) subcutaneous pen (insulin degludec) Novolog FlexPen U-100 Insulin 100 40 unit (0.4 mL) subcut TID #48 mL 01/01/24 01/12/24 Rx unit/mL (3 mL) subcutaneous (insulin aspart U-100) fluticasone propionate 50 1 spray intranasal DAILY PRN 01/01/24 01/12/24 History mcg/actuation nasal spray,suspension montelukast 10 mg tablet 10 mg PO DAILY #90 tabs 01/12/24 01/12/24 Rx rosuvastatin 20 mg tablet 20 mg PO QDAY #90 tabs 01/12/24 01/12/24 Rx vancomycin 250 mg capsule 250 mg PO .QID 01/12/24 01/12/24 History (Vancocin) Have you fallen in the past year?: No [facility] Medical History Bilateral pseudophakia Amblyopia of left eye Dry eye syndrome of bilateral lacrimal glands Acute allergic conjunctivitis of both eyes Hypertriglyceridemia Encounter for long-term (current) insulin use Shingles Thyroid disease Skin cancer High cholesterol Gout Diabetes type 2, controlled Back problem Seasonal allergies Surgical History Status post Mohs surgery History of knee replacement History of carpal tunnel release Hx of hernia repair H/O total hysterectomy Hx of cataract surgery Hx of cholecystectomy History of back surgery Family History Father Colon cancer Mother Diabetes Myocardial infarction Son Kidney stones Son Kidney stones Diabetes Hyperlipidemia Sister Diabetes Brother Diabetes Heart disease Sister Heart disease Diabetes COPD (chronic (more content not included)... Normal [facility] POC BASIC METABOLIC PANEL - [facility] 01-09-2024 Chloride [Moles/Vol] 105 mmol/L Normal 98-108 [facility] Comment on above: Order Comment: [facility] Services has implemented the eGFR calculation approach that does not have a coefficient for race that conforms to the NKF-ASN Task Force Recommendations. CO2 [Moles/Vol] 27 mmol/L Normal 21-32 [facility] Comment on above: Order Comment: [facility] has implemented the eGFR calculation approach that does not have a coefficient for race that conforms to the NKF-ASN Task Force Recommendations. Creatinine [Mass/Vol] 1.52 mg/dL High 0.60-1.20 [facility] Comment on above: Order Comment: [facility] has implemented the eGFR calculation approach that does not have a coefficient for race that conforms to the NKF-ASN Task Force Recommendations. Glucose [Mass/Vol] 240 mg/dL High 65-99 [facility] Comment on above: Order Comment: [facility] has implemented the eGFR calculation approach that does not have a coefficient for race that conforms to the NKF-ASN Task Force Recommendations. POC GFR 35 mL/min/1.73 m2 Low >=60 [facility] Comment on above: Order Comment: [facility] has implemented the eGFR calculation approach that does not have a coefficient for race that conforms to the NKF-ASN Task Force Recommendations. Result Comment: Chloé mated GFR was calculated using the 2020 CKD-EPI creatinine equation. POC IONIZED CALCIUM 4.9 mg/dL Normal 4.5-5.3 [facility] Comment on above: Order Comment: [facility] has implemented the eGFR calculation approach that does not have a coefficient for race that conforms to the NKF-ASN Task Force Recommendations. Potassium [Moles/Vol] 4.3 mmol/L Normal 3.5-5.1 [facility] Comment on above: Order Comment: [facility] has implemented the eGFR calculation approach that does not have a coefficient for race that conforms to the NKF-ASN Task Force Recommendations. Sodium [Moles/Vol] 142 mmol/L Normal 135-145 [facility] Comment on above: Order Comment: [facility] has implemented the eGFR calculation approach that does not have a coefficient for race that conforms to the NKF-ASN Task Force Recommendations. Urea nitrogen [Mass/Vol] 28 mg/dL High 8-25 [facility] Comment on above: Order Comment: [facility] has implemented the eGFR calculation approach that does not have a coefficient for race that conforms to the NKF-ASN Task Force Recommendations. POC CBC AND DIFFERENTIALon 0 01-09-2024 BASOPHILS ABSOLUTE COUNT 0.02 K/mcL Normal 0.00-0.30 [facility] Basophils/100 WBC (Bld) 0.2 % Normal [facility] Eosinophils (Bld) [#/Vol] 0.18 10*3/uL Normal 0.00-0.50 [facility] Eosinophils/100 WBC (Bld) 1.9 % Normal [facility] Erythrocyte distribution width (RBC) [Ratio] 14.5 % Normal 11.6-14.8 [facility] Hematocrit (Bld) [Volume fraction] 33.1 % Low 36.0-46.0 [facility] Hemoglobin (Bld) [Mass/Vol] 10.6 g/dL Low 12.0-16.0 [facility] IG ABSOLUTE 0.03 K/mcL Normal 0.00-0.30 [facility] IG PERCENT 0.30 % Normal [facility] Comment on above: Result Comment: The IG parameter is the percentage of metamyelocytes, myelocytes and promyelocytes. An immature granulocyte count (IG) of 1% or more suggests the possibility of infection, an IG count of 3% is very likely related to an infection. Lymphocytes (Bld) [#/Vol] 1.28 10*3/uL Normal 0.90-4.00 [facility] Lymphocytes/100 WBC (Bld) 13.7 % Normal [facility] MCH (RBC) [Entitic mass] 32.6 pg Normal 26.0-34.0 [facility] MCV (RBC) [Entitic vol] 101.8 fL High 80.0-100.0 [facility] MEAN CORPUSCULAR HEMOGLOBIN CONC 32.0 g/dL Normal 31.0-37.0 [facility] Monocytes (Bld) [#/Vol] 0.66 10*3/uL Normal 0.30-0.90 [facility] Monocytes/100 WBC (Bld) 7.1 % Normal [facility] NEUTROPHILS ABSOLUTE COUNT 7.16 K/mcL High 1.70-7.00 [facility] Neutrophils/100 WBC (Bld) 76.8 % Normal [facility] Platelet mean volume (Bld) [Entitic vol] 8.8 fL Low 9.4-12.4 [facility] Platelets (Bld) [#/Vol] 173 10*3/uL Normal 150-400 [facility] RBC (d) [#/Vol] 3.25 10*6/uL Low 4.00-5.20 [facility] WBC (Bld) [#/Vol] 9.33 10*3/uL Normal 4.50-11.00 [facility] POC LIVER PANEL PLUS RALSon 01-09-2024 Albumin [Mass/Vol] 3.2 g/dL Normal 3.2-5.2 [facility] ALP [Catalytic activity/Vol] 47 U/L Normal 40-150 [facility] ALT [Catalytic activity/Vol] 24 U/L Normal 0-40 [facility] Amylase [Catalytic activity/Vol] 15 U/L Low 25-115 [facility] Amylase [Catalytic activity/Vol] 106 U/L High 7-33 [facility] AST [Catalytic activity/Vol] 41 U/L Normal 0-45 [facility] Bilirubin [Mass/Vol] 0.8 mg/dL Normal 0.0-1.3 [facility] Protein [Mass/Vol] 7.1 g/dL Normal 6.0-8.0 [facility] STOOL/GI PCR PANELon 024 STOOL/GI PCR PANEL CAMPYLOBACTER SPECIE S Not Detected CLOSTRIDIUM DIFFICILE TOXIN A/B DETECTED Toxigenic C. difficile detected in stool. Correlation of test results with patient clinical symptoms is suggested. Young children <3 years of age have an asymptomatic carriage rate as high as 40%. NOTE: C.dif is highly contagious and inpatients should be in contact plus isolation. Outpatients should use robust hand-washing and contact precautions until symptoms subside. PLESIOMONAS SHIGELLOIDES Not Detected SALMONELLA SPECIES Not Detected VIBRIO SPECIES Not Detected VIBRIO CHLOREAE Not Detected YERSINIA ENTEROCOLITICA Not Detected ENTEROAGGREGATIVE E. COLI (EAEC) Not Detected ENTEROPATHOGENIC E. COLI (EPEC) Not Detected ENTEROTOXIGENIC E. COLI (ETEC) Not Detected SHIGA-LIKE TOXIN-PRODUCING E. COLI (STEC) 1/2 Not Detected SHIGELLA/ENTEROINVASIVE E. COLI (EIEC) Not Detected CRYPTOSPORIDIUM SPECIES Not Detected CYCLOSPORA CAYETANENSIS Not Detected ENTAMOEBA HISTOLYTICA Not Detected GIARDIA LAMBLIA Not Detected ADENOVIRUS F 40/41 Not Detected ASTROVIRUS Not Detected NOROVIRUS GI/GII Not Detected ROTAVIRUS A Not Detected SAPOVIRUS Not Detected Abnormal Not Detected [facility] Comment on above: Order Comment: Resul ts of PCR testing for stool pathogens must be taken into clinical context when making treatment decisions. Most gastrointestinal infections due to common bacterial and viral causes are self-limited in nature and do not require antimicrobial therapy. The use of antimicrobial therapy must be carefully weighed against unintended and potentially harmful consequences. The role of antimicrobial therapy depends on the implicated pathogen. In general, antimicrobial agents are only used to treat parasitic infections as well as select bacterial infections. Performed By: #### L [id number] #### [facility] [address], [place] [address] Delfin Spangler M.D. [id number] Endocrinology Visit Reporton 01-01-2024 Endocrinology Visit Report [facility] [address] [place] [address] OFFICE VISIT Date of Service: 01/01/24 MR#: [id number] Acct: [id number] Name: CAROLYN CINTRON Rep #: [id number] : 1945 Provider: Koko Barkley Age/Sex: 78/F Location: [facility] Status: Signed Intake Vital Signs 07/17/23 09:54 10/13/23 13:04 01/01/24 10:28 Height 5 ft 5 in 5 ft 5 in 5 ft 5 in Weight: 208 lb BMI 34.6 BP 107/63 Blood Pressure Location Lt brachial Position Sitting Respiration 15 Pulse 68 Pulse Source Monitor Temp 96.5 F L Temp Source Temporal Pulse Oximetry (%) 95 Oxygen Delivery Method room air Intake Visit Reasons: 6 M FU Chief Complaint: Diabetes II, hypothyroid 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 Accompanied by: Is patient in pain?: No Allergies Sulfa (Sulfonamide Antibiotics) Adverse Reaction (Severe, Verified 01/01/24 10:25) Upset Stomach cephalexin (From Keflex) Adverse Reaction (Verified 01/01/24 10:25) Nausea/Vom/Diarrhea Medications ???Medication ???Instructions ???Recorded ???Confirmed ???Type pantoprazole 40 mg tablet,delayed 40 mg PO QDAY 07/15/17 01/01/24 History release potassium chloride 20 mEq 20 meq PO QDAY 07/15/17 01/01/24 History tablet,extended release(part/cryst) (Klor-Con M) rosuvastatin 20 mg tablet (Crestor) 20 mg PO QDAY 07/15/17 01/01/24 History insulin syringe-needle U-100 0.3 #350 ea 07/17/17 10/13/23 Rx mL 31 gauge x 5/16 (BD Insulin Syringe Ultra-Fine) pen needle, diabetic 32 gauge x #350 ea 02/19/18 10/13/23 Rx 5/32 (BD Ultra-Fine Christy Pen Needle) cholecalciferol (vitamin D3) 25 1,000 unit PO DAILY 06/23/18 01/01/24 History mcg (1,000 unit) capsule aspirin 81 mg tablet,delayed 81 mg PO DAILY 07/24/20 01/01/24 History release fenofibrate micronized 134 mg 134 mg PO DAILY 07/24/20 01/01/24 History capsule mecobalamin (vitamin B12) 1,000 1,000 mcg PO DAILY 07/24/20 01/01/24 History mcg chewable tablet montelukast 10 mg tablet 10 mg PO DAILY 07/24/20 01/01/24 History blood sugar diagnostic #100 ea 12/18/20 10/13/23 Rx levothyroxine 112 mcg tablet 112 mcg PO DAILY 12/18/20 01/01/24 History allopurinol 300 mg tablet 300 mg PO DAILY 06/04/21 01/01/24 History icosapent ethyl 1 gram capsule 2 g (2 x 1 gram) PO BID #120 caps 11/05/21 01/01/24 Rx (Vascepa) omega-3 fatty acids 1,000 mg 1,000 mg PO BID 01/23/23 01/01/24 History capsule polyethylene glycol 3350 17 4 g PO DAILY PRN 01/23/23 01/01/24 History gram/dose oral powder (Miralax) trazodone 50 mg tablet 50 mg PO DAILY 01/23/23 01/01/24 History pen needle, diabetic 32 gauge x #150 ea 05/05/23 10/13/23 Rx 5/32 (BD Ultra-Fine Christy Pen Needle) blood sugar diagnostic (OneTouch #100 ea 05/20/23 10/13/23 Rx Ultra Test strips) tramadol 25 mg tablet 25 mg PO BID PRN 09/01/23 01/01/24 History flash glucose sensor (FreeStyle #2 ea 10/02/23 10/13/23 Rx Nomi 2 Sensor kit) furosemide 20 mg tablet 20 mg PO QDAY #90 tabs 10/13/23 01/01/24 Rx metoprolol succinate 50 mg 25 mg (1/2 x 50 mg) PO BID #180 10/13/23 01/01/24 Rx tablet,extended release 24 hr tabs loratadine 10 mg tablet (Claritin) 10 mg PO DAILY PRN allergic 11/06/23 01/01/24 Rx symptoms #90 tabs lisinopril 10 mg tablet 10 mg PO DAILY #90 tabs 11/21/23 01/01/24 Rx Tresiba FlexTouch U-200 200 70 unit (0.35 mL) subcut QHS #12 mL 12/11/23 01/01/24 Rx unit/mL (3 mL) subcutaneous pen (insulin degludec) Novolog FlexPen U-100 Insulin 100 40 unit (0.4 mL) subcut TID #48 mL 01/01/24 01/01/24 Rx unit/mL (3 mL) subcutaneous (insulin aspart U-100) fluticasone propionate 50 1 spray intranasal DAILY PRN 01/01/24 01/01/24 History mcg/actuation nasal spray,suspension Have you fallen in the past year?: No [facility] Medical History Bilateral pseudophakia Amblyopia of left eye Dry eye syndrome of bilateral lacrimal glands Acute allergic conjunctivitis of both eyes Hypertriglyceridemia Encounter for long-term (current) insulin use Shingles Thyroid disease Skin cancer High cholesterol Gout Diabetes type 2, controlled Back problem Seasonal allergies Surgical History Status post Mohs surgery History of knee replacement History of carpal tunnel release Hx of hernia repair H/O total hysterectomy Hx of cataract surgery Hx of cholecystectomy History of back surgery Family History Father Colon cancer Mother Diabetes Myocardial infarction Son Kidney stones Son Kidney stones Diabetes Hyperlipidemia Sister Diabetes Brother Diabetes Heart disease Sister Heart disease Diabete (more content not included)... Normal [facility] Laboratory - Drug toxicology Ordered By: Leonie Loja on 10-20-2023 Amphetamines Ql (U) Negative <1000 ng/mL [facility] Benzodiazepines Ql (U) Negative < 200 ng/mL [facility] Cannabinoids Screen Ql (U) Negative < 50 ng/mL [facility] Cocaine Ql (U) Negative < 300 ng/mL [facility] Opiates Ql (U) Negative < 300 ng/mL [facility] No Panel InformationOrdered By: Leonie Loja on 10-20-2023 MDMA (Ecstasy) Screen Negative < 500 ng/mL [facility] Miscellaneous Test See comment [facility] Comment on above: [id number] 6+OXYCODONE-B UND (ng/mL) DRUG RESULT SCREEN CUTOFF____ Amphetamines,Urine Negative ng/mL 1000 Amphetamine test includes Amphetamine and Methamphetamine.Barbiturates Negative ng/mL 200Benzodiazepines Negative ng/mL 200Cannabinoid Negative ng/mL 20Cocaine (Metab) Negative ng/mL 300Opiates Negative ng/mL 300 Opiates test includes Codeine, Morphine, Hydromorphone, Hydrocodone. Oxycodone/Oxymorphone,Urine Negative ng/mL 300 Test includes Oxycodone and Oxymorphone. TESTING PERFORMED AT [facility]. ORIGINAL REPORT ON FILE IN LAB CONTAINS ADDITIONAL TEST SITE INFORMATION. Urine Barbiturates Screen Negative < 200 ng/mL [facility] Urine Drug Screen Comment [facility] Comment on above: CONFIRMATORY TESTING FOR ALL POSITIVE URINE DRUG SCREENRESULTS WILL ONLY BE SENT OUT UPON PHYSICIAN ORDER. VISTA Urine Drug Screen methods provide only preliminaryanalytical test results. A more specific alternate chemicalmethod must be used in order to obtain a confirmedanalytical result. Gas chromatography/mass spectrometery(GC/MS) is the preferred confirmatory method. Clinicalconsideration and professional judgement should be appliedto any drug of abuse test result, particularly whenpreliminary positive results are used. URINE TCA TESTING MUST BE ORDERED SEPARATELY. USE TESTMNEMONIC: UTCA Urine Methadone Screen Negative < 300 ng/mL [facility] Urine phencyclidine (PCP) de tectionOrdered By: Leonie Loja on 10-20-2023 Phencyclidine Ql (U) Negative < 25 ng/mL [facility] Absolute lymphocyte countOrd ered By: Ramón Coulter on 10-13-2023 Lymphocytes Auto (Unsp spec) [#/Vol] 1.95 10*3/uL 0.83-4.51 [facility] Automated lymphocyte count a s percentage of total leukocytesOrdered By: Ramón Coulter on 10-13-2023 Lymphocytes/100 WBC Auto (Unsp spec) 36.9 % 19-41 [facility] Basophil percentageOrdered B y: Ramón Coulter on 10-13-2023 Basophils/100 WBC (Bld) 0.6 % 0-1 [facility] Bilirubin [Mass/Vol] 0.30 mg/dL 0.20-1.00 [facility] Comment on above: For patients on eltr ombopag therapy, use of Dimension Lagrange TBIL is not recommended. Chloride [Moles/Vol] 105 mmol/L 98-107 [facility] Cholesterol [Mass/Vol] 143 mg/dL <200 [facility] Comment on above: <200 mg/dL Desirable 200-240 mg/dL Borderline >240 mg/dL High Risk Eosinophils/100 WBC (Bld) 2.1 % 0-5 [facility] Glucose [Mass/Vol] 86 mg/dL 74-106 [facility] Hemoglobin (Bld) [Mass/Vol] 10.9 g/dL 12.0-15.0 [facility] Monocytes/100 WBC (Bld) 10.0 % 0-10 [facility] Neutrophils (Bld) [#/Vol] 2.6 10*3/uL 2.0-7.7 [facility] Neutrophils/100 WBC (Bld) 49.8 % 47-70 [facility] Potassium [Moles/Vol] 4.5 mmol/L 3.5-5.1 [facility] Comment on above: Slight Hemolysis, Re sult may be falsely increased. Protein [Mass/Vol] 7.1 g/dL 6.4-8.2 [facility] Sodium [Moles/Vol] 138 mmol/L 136-145 [facility] Triglyceride [Mass/Vol] 661 mg/dL <199 [facility] Comment on above: The drugs N-Acetylcy steine and Metamizole may falsely depress this assay. TRIGLYCERIDE IS GREATER THAN 400 mg/dL. LDL RESULT IS INVALID AND WILL NOT BE REPORTED.Serum Triglycerides Reference Interval Normal <150 mg/dL Borderline high 150 - 199 mg/dL High 200 - 499 mg/dL Very High > or = 500 mg/dL WBC (Bld) [#/Vol] 5.3 10*3/uL 4.4-11.0 [facility] Basophil percentage 0 SEEN /hpf 0-5 [facility] Bilirubin Test strip Ql (U)O rdered By: Ramón Coulter on 10-13-2023 Bilirubin Ql (U) Negative Negative [facility] Determination of erythrocyte mean corpuscular volume (MCV)Ordered By: Ramón Coulter on 10-13-2023 MCV (RBC) [Entitic vol] 99.1 fL 81-99 [facility] Erythrocyte distribution wid th ratioOrdered By: Ramón Coulter on 10-13-2023 Erythrocyte distribution width (RBC) [Ratio] 13.7 % 11.6-14.6 [facility] Erythrocyte distribution wid th standard deviationOrdered By: Ramón Coulter on 10-13-2023 Erythrocyte distribution width (RBC) [Entitic vol] 49.4 fL 35.1-43.9 [facility] Hematocrit Auto (Bld) [Volum e fraction]Ordered By: Ramón Coulter on 10-13-2023 Hematocrit (Bld) [Volume fraction] 34.2 % 37-47 [facility] Immature granulocytes/100 WB C Auto (Bld)Ordered By: Ramón Coulter on 10-13-2023 Immature granulocytes/100 WBC (Bld) 0.600 % 0.0-0.9 [facility] Comment on above: IG% - Immature Granu locytes (promyelocytes, myelocytes and metamyelocytes) > 1% indicates that a LEFT SHIFT is Present. Ketones Test strip Ql (U)Ord ered By: Ramón Coulter on 10-13-2023 Ketones Ql (U) Negative Negative [facility] Laboratory - Chemistry and C hemistry - challengeOrdered By: Ramón Coulter on 10-13-2023 Albumin/Globulin [Mass ratio] 1.0 {ratio} 0.9-2.4 [facility] ALP [Catalytic activity/Vol] 30 U/L 45-117 [facility] ALT [Catalytic activity/Vol] 30 U/L 13-56 [facility] Cholesterol in HDL [Mass/Vol] 24 mg/dL >40 [facility] Comment on above: The drugs N-Acetylcy steine and Metamizole may falsely depress this assay. Reference Range HDL <40 mg/dL Low HDL Cholesterol HDL >or= 60 mg/dL High HDL Cholesterol CO2 [Moles/Vol] 25.0 mmol/L 21.0-32.0 [facility] Globulin (S) [Mass/Vol] 3.6 g/dL 2.2-4.2 [facility] Urea nitrogen/Creatinine [Mass ratio] 18.9 mg/mg 10-20 [facility] Laboratory - Hematology and Cell countsOrdered By: Ramón Coulter on 10-13-2023 MCH (RBC) [Entitic mass] 31.6 pg 27.0-32.0 [facility] MCHC (RBC) [Mass/Vol] 31.9 g/dL 32-36 [facility] Nucleated RBC/100 WBC (Bld) [Ratio] 0 % 0-5 [facility] Platelet mean volume (Bld) [Entitic vol] 10.0 fL 6.2-12.0 [facility] Platelets (Bld) [#/Vol] 214 10*3/uL 150-450 [facility] Laboratory - Hematology and Cell countson 10-13-2023 HbA1c (Bld) [Mass fraction] 6.4 % 4.2-6.3 [facility] Mucus LM Ql (Urine sed)Order ed By: Ramón Coulter on 10-13-2023 Mucus Ql (Urine sed) 0 SEEN /hpf [facility] Nitrite Test strip Ql (U)Ord ered By: Ramón Coulter on 10-13-2023 Nitrite Ql (U) Negative Negative [facility] No Panel InformationOrdered By: Ramón Coulter on 10-13-2023 Estimated GFR (MDRD) Amer 44 mL/min >60 [facility] Comment on above: GFR Calc Estimated GFR (MDRD) Non-Af Amer 36 mL/min >60 [facility] Comment on above: Non- GFR Calc LDL [facility] on [facility]: Test not performed Vitamin D 25-Hydroxy 53.8 ng/mL [facility] Comment on above: Vitamin D 25(OH) Sta tus Range Deficiency <20 ng/mL (50nmol/L) Insufficiency 20 - 30 ng/mL (50 - 75 nmol/L) Sufficiency 30 - 100 ng/mL (75 - 250 nmol/L) Toxicity >100 ng/mL (>250 nmol/L) VLDL [facility] Comment on above: Test not performed Urine RBC 0 SEEN /hpf 0-5 [facility] Protein Test strip Ql (U)Ord ered By: Ramón Coulter on 10-13-2023 Protein Ql (U) Negative Negative [facility] RBC Auto (Bld) [#/Vol]Ordere d By: Ramón Coulter on 10-13-2023 RBC (Bld) [#/Vol] 3.45 10*6/uL 4.2-5.4 [facility] Serum or plasma calcium fallon urement (mass/volume)Ordered By: Ramón Coulter on 10-13-2023 Calcium [Mass/Vol] 9.6 mg/dL 8.5-10.1 [facility] Serum or plasma creatinine m easurement (mass/volume)Ordered By: Ramón Coulter on 10-13-2023 Creatinine [Mass/Vol] 1.48 mg/dL 0.55-1.02 [facility] Comment on above: The validity of the calculated GFR & GFRAA in patients over 70 years has not been determined. Clinical correlation is essential. Serum or plasma thyroid stim ulating hormone (TSH) measurement (units/volume)Ordered By: Ramón Coulter on 10-13-2023 TSH Qn 0.92 uIU/mL 0.358-3.74 [facility] Serum or plasma urea nitroge n measurement (mass/volume)Ordered By: Ramón Coulter on 10-13-2023 Urea nitrogen [Mass/Vol] 28 mg/dL 7-18 [facility] Serum or plasma uric acid me asurement (mass/volume)Ordered By: Ramón Coulter on 10-13-2023 Urate [Mass/Vol] 4.5 mg/dL 2.6-6.0 [facility] Comment on above: The drugs N-Acetylcy steine and Metamizole may falsely depress this assay. Squamous epithelial cells de tection in urine sediment by light microscopyOrdered By: Ramón Coulter on 10-13-2023 Epithelial cells.squamous LM Ql (Urine sed) 0-5 SEEN /hpf 5-10 [facility] Thin prep Papanicolaou smear with manual screeningOrdered By: Ramón Coulter on 10-13-2023 Thin prep Papanicolaou smear with manual screening 3.5 g/dL 3.2-5.0 [facility] Thin prep Papanicolaou smear with manual screening 34 U/L 15-37 [facility] Comment on above: Slight Hemolysis, Re sult may be falsely increased. Thin prep Papanicolaou smear with manual screening 8 5-15 [facility] Urine blood detectionOrdered By: Ramón Coulter on 10-13-2023 RBC Ql (U) Negative Negative [facility] Urine clarityOrdered By: Dariel Coulter on 10-13-2023 Clarity (U) Clear Clear [facility] Urine color determinationOrd ered By: Ramón Coulter on 10-13-2023 Color (U) Yellow Yellow [facility] Urine glucose detectionOrder ed By: Ramón Coulter on 10-13-2023 Glucose Ql (U) Normal mg/dl Normal [facility] Urine leukocyte esterase det ection by dipstickOrdered By: Ramón Coulter on 10-13-2023 Leukocyte esterase Test strip Ql (U) Negative Negative [facility] Urine pHOrdered By: Ramón valdes on 10-13-2023 pH (U) 6.0 [pH] 5.0 - 8.0 [facility] Urine sediment bacteria coun t by microscopy (number/high power field)Ordered By: Ramón Coulter on 10-13-2023 Bacteria LM.HPF (Urine sed) [#/Area] 0 /[HPF] None Seen [facility] Urine specific gravity measu rementOrdered By: Ramón Coulter on 10-13-2023 Specific gravity (U) [Rel density] 1.010 1.002-1.03 0 [facility] Urine urobilinogen measureme ntOrdered By: Ramón Coulter on 10-13-2023 Urobilinogen Ql (U) Normal mg/dl Normal [facility] Laboratory - Hematology and Cell countson 07-17-2023 HbA1c (Bld) [Mass fraction] 6.7 % 4.2-6.3 [facility] ECG 12 LeadOrdered By: Enrico Hall on 03-14-2023 Atrial Rate [facility] P Adger [facility] P-R Interval [facility] Q-T Interval [facility] Q-T Interval (corrected) [facility] QRS Duration [facility] QTC Calculation (Bezet) [facility] R Adger [facility] T Adger [facility] Ventricular Rate [facility] Laboratory - Drug toxicology Ordered By: Leonie Loja on 02-24-2023 Amphetamines Ql (U) Negative <1000 ng/mL [facility] Benzodiazepines Ql (U) Negative < 200 ng/mL [facility] Cannabinoids Screen Ql (U) Negative < 50 ng/mL [facility] Cocaine Ql (U) Negative < 300 ng/mL [facility] Opiates Ql (U) Negative < 300 ng/mL [facility] No Panel InformationOrdered By: Leonie Loja on 02-24-2023 MDMA (Ecstasy) Screen Negative < 500 ng/mL [facility] Miscellaneous Test See comment [facility] Comment on above: [id number] 6+OXYCODONE-B UND (ng/mL) DRUG RESULT SCREEN CUTOFF____ Amphetamines,Urine Negative ng/mL 1000 Amphetamine test includes Amphetamine and Methamphetamine.Barbiturates Negative ng/mL 200Benzodiazepines Negative ng/mL 200Cannabinoid Negative ng/mL 20Cocaine (Metab) Negative ng/mL 300Opiates Negative ng/mL 300 Opiates test includes Codeine, Morphine, Hydromorphone, Hydrocodone. Oxycodone/Oxymorphone,Urine Negative ng/mL 300 Test includes Oxycodone and Oxymorphone. TESTING PERFORMED AT [facility]. ORIGINAL REPORT ON FILE IN LAB CONTAINS ADDITIONAL TEST SITE INFORMATION. Urine Barbiturates Screen Negative < 200 ng/mL [facility] Urine Drug Screen Comment [facility] Comment on above: CONFIRMATORY TESTING FOR ALL POSITIVE URINE DRUG SCREENRESULTS WILL ONLY BE SENT OUT UPON PHYSICIAN ORDER. VISTA Urine Drug Screen methods provide only preliminaryanalytical test results. A more specific alternate chemicalmethod must be used in order to obtain a confirmedanalytical result. Gas chromatography/mass spectrometery(GC/MS) is the preferred confirmatory method. Clinicalconsideration and professional judgement should be appliedto any drug of abuse test result, particularly whenpreliminary positive results are used. URINE TCA TESTING MUST BE ORDERED SEPARATELY. USE TESTMNEMONIC: [facility] Urine Methadone Screen Negative < 300 ng/mL [facility] Urine phencyclidine (PCP) de tectionOrdered By: Leonie Loja on 02-24-2023 Phencyclidine Ql (U) Negative < 25 ng/mL [facility] Laboratory - Hematology and Cell countson 01-23-2023 HbA1c (Bld) [Mass fraction] 6.8 % 4.2-6.3 [facility] BONE DENSITY, DEXA 1 OR MORE SITES: AXIAL SKELETONon 09-18-2022 BONE DENSITY, DEXA 1 OR MORE SITES: AXIAL SKELETON Patient Name: CAROLYN CINTRON STUDY: BONE DENSITY, DEXA 1 OR MORE SITES: AXIAL SKELET09/18/2022 10:03 am INDICATION: POST MENOPAUSEThe patient is a 76 year old female for a screening bone Densitometry (DEXA). COMPARISON: 12/17/2018. ACCESSION NUMBER(S): [id number] ORDERING CLINICIAN: RYAN GOMEZ TECHNIQUE: Bone Densitometry (DEXA) of the hip and forearm performed. FINDINGS: Name: CAROLYN CINTRON Date:1945 Height:160 Gender:F Exam Date:09/18/2022 Weight:92 Indications:POST MENOPAUSE Fractures:None Treatments:Hormone replacement therapy LEFT FEMUR -TOTAL Bone Mineral Density: 0.7 6 1 g/cm2 T-Score -1.5 Z-Score 0.4 LEFT FEMUR -NECK Bone Mineral Density: 0.643 g/cm2 T-Score -1.9 Z-Score 0.3 Distal left forearm Bone Mineral Density: 0.571 g/cm2 T-Score -1.9 Z-Score 0.9 World Health Organization (WHO) criteria for post-menopausal, Women: Normal: T-score at or above -1 SD Osteopenia: T-score between -1 and -2.5 SD Osteoporosis: T-score at or below -2.5 SD 10-Year Fracture Risk: FRAX 10-year Fracture Risk(1): Major Osteoporotic Fracture 12% Hip Fracture 0.9% IMPRESSION: According to World Health Organization criteria, classification is low bone mass (osteopenia) Followup recommended in two years or sooner as clinically warranted. Electronically signed by: SHAHBAZ YOUNGER MD [facility] DIGITAL MAMM SCREENING W/ TO [place] 09-18-2022 DIGITAL MAMM SCREENING W/ DOM Patient Name: CAROLYN CINTRON STUDY: Digital mammography screening with dom; 09/18/2022 10:00 am ACCESSION NUMBER(S): [id number] ORDERING CLINICIAN: RYAN GOMEZ INDICATION: Screening. COMPARISON: Comparison is made to prior digital mammograms dated 10/16/2020 FINDINGS: CC and MLO 2D digital mammograms and digital breast tomosynthesis images were obtained of the bilateral breasts. 3-D volume images were reconstructed in 4 views at an independent workstation as 1 mm slices through the breasts in both the CC and MLO projections. The breast tissue is almost entirely fatty. No discrete mass or focal asymmetry is identified. No suspicious microcalcifications or foci of architectural distortion are seen. There has been no significant change. This study was interpreted with CAD. IMPRESSION: No mammographic evidence of malignancy. BI-RADS CATEGORY: Category: 1 - Negative. Recommendation: 1 Year Screening. Electronically signed by: SHAHBAZ YOUNGER MD Normal [facility] CBC AND DIFFERENTIALon 06-07 % AUTOMATED IMMATURE GRAN 0.8 % Normal 0.0 - 0.9 [facility] Comment on above: Result Comment: Sonja ture Granulocyte Count (IG) includes promyelocytes, myelocytes and metamyelocytes but does not include bands. Percent differential counts (%) should be interpreted in the context of the absolute cell counts (cells/L). Performed By: #### C BCDF #### [address] [address] Basophils (Bld) [#/Vol] 0.04 10*3/uL Normal 0.00 - 0.10 [facility] Comment on above: Performed By: #### C BCDF #### [address] [address] Basophils/100 WBC (Bld) 0.8 % Normal 0.0 - 2.0 [facility] Comment on above: Performed By: #### C BCDF #### [address] [address] Eosinophils (Bld) [#/Vol] 0.14 10*3/uL Normal 0.00 - 0.40 [facility] Comment on above: Performed By: #### C BCDF #### [address] [address] Eosinophils/100 WBC (Bld) 2.9 % Normal 0.0 - 6.0 [facility] Comment on above: Performed By: #### C BCDF #### [address] [address] Erythrocyte distribution width (RBC) [Ratio] 13.9 % Normal 11.5 - 14.5 [facility] Comment on above: Performed By: #### C BCDF #### [address] [address] Hematocrit (Bld) [Volume fraction] 36.3 % Normal 36.0 - 46.0 [facility] Comment on above: Performed By: #### C BCDF #### [address] [address] Hemoglobin (Bld) [Mass/Vol] 11.7 g/dL Low 12.0 - 16.0 [facility] Comment on above: Performed By: #### C BCDF #### [address] [address] Lymphocytes (Bld) [#/Vol] 1.64 10*3/uL Normal 0.80 - 3.00 [facility] Comment on above: Performed By: #### C BCDF #### [address] [address] Lymphocytes/100 WBC (Bld) 34.2 % Normal 13.0 - 44.0 [facility] Comment on above: Performed By: #### C BCDF #### [address] [address] MCHC (RBC) [Mass/Vol] 32.2 g/dL Normal 32.0 - 36.0 [facility] Comment on above: Performed By: #### C BCDF #### [address] [address] MCV (RBC) [Entitic vol] 101 fL High 80 - 100 [facility] Comment on above: Performed By: #### C BCDF #### [address] [address] Monocytes (Bld) [#/Vol] 0.49 10*3/uL Normal 0.05 - 0.80 [facility] Comment on above: Performed By: #### C BCDF #### [address] [address] Monocytes/100 WBC (Bld) 10.2 % Normal 2.0 - 10.0 [facility] Comment on above: Performed By: #### C BCDF #### [address] [address] Neutrophils (Bld) [#/Vol] 2.44 10*3/uL Normal 1.60 - 5.50 [facility] Comment on above: Result Comment: Perc ent differential counts (%) should be interpreted in the context of the absolute cell counts (cells/L). Performed By: #### C BCDF #### [address] [address] Neutrophils/100 WBC (Bld) 51.1 % Normal 40.0 - 80.0 [facility] Comment on above: Performed By: #### C BCDF #### [address] [address] Platelets (Bld) [#/Vol] 211 10*3/uL Normal 150 - 450 [facility] Comment on above: Performed By: #### C BCDF #### [address] [address] RBC 3.61 x10E12/L Low 4.00 - 5.20 [facility] Comment on above: Performed By: #### C BCDF #### [address] [address] WBC (Bld) [#/Vol] 4.8 10*3/uL Normal 4.4 - 11.3 [facility] Comment on above: Performed By: #### C BCDF #### [address] [address] COMPREHENSIVE PANELon 2021 Albumin [Mass/Vol] 4.1 g/dL Normal 3.4 - 5.0 [facility] Comment on above: Performed By: #### C MP #### [address] [address] ALP [Catalytic activity/Vol] 36 U/L Normal 33 - 136 [facility] Comment on above: Performed By: #### C MP #### [address] [address] ALT [Catalytic activity/Vol] 18 U/L Normal 7 - 45 [facility] Comment on above: Result Comment: Emma ents treated with Sulfasalazine may generate falsely decreased results for ALT. Performed By: #### C MP #### [address] [address] Anion gap [Moles/Vol] 14 mmol/L Normal 10 - 20 [facility] Comment on above: Performed By: #### C MP #### [address] [address] AST [Catalytic activity/Vol] 26 U/L Normal 9 - 39 [facility] Comment on above: Performed By: #### C MP #### [address] [address] Bilirubin [Mass/Vol] 0.3 mg/dL Normal 0.0 - 1.2 [facility] Comment on above: Performed By: #### C MP #### [address] [address] Calcium [Mass/Vol] 9.8 mg/dL Normal 8.6 - 10.3 [facility] Comment on above: Performed By: #### C MP #### [address] [address] Chloride [Moles/Vol] 101 mmol/L Normal 98 - 107 [facility] Comment on above: Performed By: #### C MP #### [address] [address] Creatinine [Mass/Vol] 1.42 mg/dL High 0.50 - 1.05 [facility] Comment on above: Performed By: #### C MP #### [address] [address] GFR/1.73 sq M.predicted among non-blacks MDRD (S/P/Bld) [Vol rate/Area] 38 mL/min/{1.73_m2} Abnormal >90 [facility] Comment on above: Result Comment: CALC ULATIONS OF ESTIMATED GFR ARE PERFORMED USING THE 2020 CKD-EPI STUDY REFIT EQUATION WITHOUT THE RACE VARIABLE FOR THE IDMS-TRACEABLE CREATININE METHODS. https://jasn.asnjournals.org/content/early/ASN.94569 [address]70 Performed By: #### C MP #### [address] [address] Glucose [Mass/Vol] 181 mg/dL High 74 - 99 [facility] Comment on above: Performed By: #### C MP #### [address] [address] HCO3 (Bld) [Moles/Vol] 27 mmol/L Normal 21 - 32 [facility] Comment on above: Performed By: #### C MP #### [address] [address] Potassium [Moles/Vol] 4.5 mmol/L Normal 3.5 - 5.3 [facility] Comment on above: Performed By: #### C MP #### [address] [address] Protein [Mass/Vol] 6.9 g/dL Normal 6.4 - 8.2 [facility] Comment on above: Performed By: #### C MP #### [address] [address] Sodium [Moles/Vol] 137 mmol/L Normal 136 - 145 [facility] Comment on above: Performed By: #### C MP #### [address] [address] Urea nitrogen [Mass/Vol] 32 mg/dL High 6 - 23 [facility] Comment on above: Performed By: #### C MP #### [address] [address] HEMOGLOBIN A1Con 06-07-2022 Glucose [Mass/Vol] 163 mg/dL Normal [facility] Comment on above: Performed By: #### H BA1E #### [address] [address] HbA1c (Bld) [Mass fraction] 7.3 % Abnormal [facility] Comment on above: Result Comment: Diag nosis of Diabetes-Adults Non-Diabetic: < or = 5.6% Increased risk for developing diabetes: 5.7-6.4% Diagnostic of diabetes: > or = 6.5% . Monitoring of Diabetes Age (y) Therapeutic Goal (%) Adults: >18 <7.0 Pediatrics: 13-18 <7.5 7-12 <8.0 0- 6 7.5-8.5 [employer]. Diabetes Care 33(S1), Jul 2009. Performed By: #### H BA1E #### [address] [address] LIPID PANEL (CORONARY RISK 2 )on 06-07-2022 LDL - Normal 0 - 99 [facility] Comment on above: Result Comment: . NEAR BORD AGE DESIRABLE OPTIMAL HIGH HIGH VERY HIGH 0-19 Y 0 - 109 --- 110-129 >/= 130 ---- 20-24 Y 0 - 119 --- 120-159 >/= 160 ---- >24 Y 0 - 99 100-129 130-159 160-189 >/=190 . THE CALCULATION OF LDL AND VLDL ARE INACCURATE WHEN TRIGLYCERIDES ARE GREATER THAN 400 MG/DL OR WHEN THE PATIENT IS NON-FASTING. IF LDL MEASUREMENT IS NECESSARY CONTACT THE TESTING LABORATORY FOR AN ALTERNATIVE LDL ASSAY. Performed By: #### L IPID #### [address] [address] Triglyceride [Mass/Vol] 1053 mg/dL High 0 - 149 [facility] Comment on above: Result Comment: . AGE DESIRABLE BORDERLINE HIGH HIGH VERY HIGH 0 D-90 D 19 - 174 ---- ---- ---- 91 D- 9 Y 0 - 74 75 - 99 >/= 100 ---- 10-19 Y 0 - 89 90 - 129 >/= 130 ---- 20-24 Y 0 - 114 115 - 149 >/= 150 ---- >24 Y 0 - 149 150 - 199 200- 499 >/= 500 . Venipuncture immediately after or during the administration of Metamizole may lead to falsely low results. Testing should be performed immediately prior to Metamizole dosing. Performed By: #### L IPID #### [address] [address] VLDL SEE COMMENT Normal 0 - 40 [facility] Comment on above: Result Comment: Unab le to calculate VLDL. Performed By: #### L IPID #### [address] [address] Cholesterol [Mass/Vol] 187 mg/dL Normal 0 - 199 [facility] Comment on above: Result Comment: . AGE DESIRABLE BORDERLINE HIGH HIGH 0-19 Y 0 - 169 170 - 199 >/= 200 20-24 Y 0 - 189 190 - 224 >/= 225 >24 Y 0 - 199 200 - 239 >/= 240 All ranges are based on fasting samples. Specific therapeutic targets will vary based on patient-specific cardiac risk. . Pediatric guidelines reference:Pediatrics 2011, 128(S5). Adult guidelines reference: NCEP ATPIII Guidelines, MARIN 2001, 258:7846-97 . Venipuncture immediately after or during the administration of Metamizole may lead to falsely low results. Testing should be performed immediately prior to Metamizole dosing. Performed By: #### L IPID #### [address] [address] Cholesterol in HDL [Mass/Vol] 23.0 mg/dL Abnormal [facility] Comment on above: Result Comment: . AGE VERY LOW LOW NORMAL HIGH 0-19 Y < 35 < 40 40-45 ---- 20-24 Y ---- < 40 >45 ---- >24 Y ---- < 40 40-60 >60 . Performed By: #### L IPID #### [address] [address] Cholesterol.total/Chol esterol in HDL [Mass ratio] 8.1 {ratio} Abnormal [facility] Comment on above: Result Comment: REF VALUES DESIRABLE < 3.4 HIGH RISK > 5.0 Performed By: #### L IPID #### [address] [address] MAGNESIUMon 06-07-2022 Magnesium [Mass/Vol] 1.55 mg/dL Low 1.60 - 2.40 [facility] Comment on above: Performed By: #### M G #### [address] [address] TSHon 06-07-2022 TSH Qn 1.72 m[IU]/L Normal 0.44 - 3.98 [facility] Comment on above: Result Comment: TSH testing is performed using different testing methodology at [facility] than at other [facility]. Direct result comparisons should only be made within the same method. Performed By: #### T SH2 #### [address] [address] URIC ACIDon 06-07-2022 Urate [Mass/Vol] 4.2 mg/dL Normal 2.3 - 6.7 [facility] Comment on above: Result Comment: Nidhi puncture immediately after or during the administration of Metamizole may lead to falsely low results. Testing should be performed immediately prior to Metamizole dosing. Performed By: #### U DUSTIN #### [address] [address] VITAMIN B12on 06-07-2022 Cobalamin (Vitamin B12) [Mass/Vol] 722 pg/mL Normal 211 - 911 [facility] Comment on above: Performed By: #### V TB12 #### [place] [id number] VITAMIN D, 25-HYDROXYon VITAMIN D, 25-HYDROXY 45 ng/mL Normal [facility] Comment on above: Result Comment: . DEFICIENCY: < 20 NG/ML INSUFFICIENCY: 20-29 NG/ML SUFFICIENCY: 30-100 NG/ML THIS ASSAY ACCURATELY QUANTIFIES THE SUM OF VITAMIN D3, 25-HYDROXY AND VIT D2,25-HYDROXY. Performed By: #### V TDOH #### [address] [address] ECG 12 LeadOrdered By: Jessica Ovalle on 04-05-2022 Atrial Rate [facility] P Adger [facility] P-R Interval [facility] Q-T Interval [facility] Q-T Interval (corrected) [facility] QRS Duration [facility] QTC Calculation (Bezet) [facility] R Adger [facility] T Adger [facility] Ventricular Rate [facility] BNPon 12-27-2021 Natriuretic peptide B (Bld) [Mass/Vol] 60 pg/mL Normal 0 - 99 [facility] Comment on above: Result Comment: . <1 00 pg/mL - Heart failure unlikely 100-299 pg/mL - Intermediate probability of acute heart . failure exacerbation. Correlate with clinical . context and patient history. >=300 pg/mL - Heart Failure likely. Correlate with clinical . context and patient history. BNP testing is performed using different testing methodology at [facility] than at other [facility]. Direct result comparisons should only be made within the same method. Performed By: #### V TDOH #### [address] [address] D-DIMER, NON VTEon 2 D-DIMER, NON VTE 452 ng/mL FEU Normal = 500 [facility] Comment on above: Result Comment: THE D-DIMER ASSAY IS REPORTED IN NG/ML FIBRINOGEN EQUIVALENT UNITS (FEU). THE RESULTS OF THIS ASSAY SHOULD NOT BE USED FOR THE EXCLUSION OF DEEP VEIN THROMBOSIS AND/OR PULMONARY EMBOLISM. Performed By: #### D NICKO #### [address] [address] TROPONIN I, HIGH SENSITIVITY on 12-27-2021 TROPONIN I, HIGH SENSITIVITY 3 ng/L Normal 0 - 13 [facility] Comment on above: Result Comment: . Less than 99th percentile of normal range cutoff- Female and children under 18 years old <14 ng/L; Male <21 ng/L: Negative Repeat testing should be performed if clinically indicated. . Female and children under 18 years old 14-50 ng/L; Male 21-50 ng/L: Consistent with possible cardiac damage and possible increased clinical risk. Serial measurements may help to assess extent of myocardial damage. . >50 ng/L: Consistent with cardiac damage, increased clinical risk and myocardial infarction. Serial measurements may help assess extent of myocardial damage. . NOTE: Children less than 1 year old may have higher baseline troponin levels and results should be interpreted in conjunction with the overall clinical context. . NOTE: Troponin I testing is performed using a different testing methodology at [facility] than at other [facility]. Direct result comparisons should only be made within the same method. Performed By: #### V TDOH #### [address] [address] CBC AND DIFFERENTIALon 12-26 Basophils (Bld) [#/Vol] 0.00 10*3/uL Normal 0.00 - 0.10 [facility] Comment on above: Performed By: #### V TDOH #### [address] [address] Basophils/100 WBC (Bld) 0.6 % Normal 0.0 - 2.0 [facility] Comment on above: Performed By: #### Alyce TDOH #### [address] [address] Eosinophils (Bld) [#/Vol] 0.10 10*3/uL Normal 0.00 - 0.40 [facility] Comment on above: Performed By: #### Alyce TDOH #### [address] [address] Eosinophils/100 WBC (Bld) 2.2 % Normal 0.0 - 6.0 [facility] Comment on above: Performed By: #### Alyce YOOOH #### [address] [address] Erythrocyte distribution width (RBC) [Ratio] 14.6 % High 11.5 - 14.5 [facility] Comment on above: Performed By: #### Alyce TDOH #### [address] [address] Hematocrit (Bld) [Volume fraction] 33.3 % Low 36.0 - 46.0 [facility] Comment on above: Performed By: #### Alyce TDOH #### [address] [address] Hemoglobin (Bld) [Mass/Vol] 11.5 g/dL Low 12.0 - 16.0 [facility] Comment on above: Performed By: #### Alyce TDOH #### [address] [address] Lymphocytes (Bld) [#/Vol] 1.60 10*3/uL Normal 0.80 - 3.00 [facility] Comment on above: Performed By: #### Alyce TDOH #### [address] [address] Lymphocytes/100 WBC (Bld) 30.3 % Normal 13.0 - 44.0 [facility] Comment on above: Performed By: #### Alyce TDOH #### [address] [place] [address] MCHC (RBC) [Mass/Vol] 34.5 g/dL Normal 32.0 - 36.0 [facility] Comment on above: Performed By: #### Alyce TDOH #### [address] [address] MCV (RBC) [Entitic vol] 96 fL Normal 80 - 100 [facility] Comment on above: Performed By: #### V TDOH #### [address] [address] Monocytes (Bld) [#/Vol] 0.50 10*3/uL Normal 0.05 - 0.80 [facility] Comment on above: Performed By: #### Alyce TDOH #### [address] [address] Monocytes/100 WBC (Bld) 10.1 % Normal 2.0 - 10.0 [facility] Comment on above: Performed By: #### Alyce TDOH #### [address] [address] Neutrophils (Bld) [#/Vol] 3.00 10*3/uL Normal 1.60 - 5.50 [facility] Comment on above: Result Comment: Perc ent differential counts (%) should be interpreted in the context of the absolute cell counts (cells/L). Performed By: #### Alyce TDOH #### [address] [address] Neutrophils/100 WBC (Bld) 56.8 % Normal 40.0 - 80.0 [facility] Comment on above: Performed By: #### V TDOH #### [address] [address] Platelets (Bld) [#/Vol] 226 10*3/uL Normal 150 - 450 [facility] Comment on above: Performed By: #### Alyce TDOH #### [address] [address] RBC 3.45 x10E12/L Low 4.00 - 5.20 [facility] Comment on above: Performed By: #### Alyce TDOH #### [address] [address] WBC (Bld) [#/Vol] 5.3 10*3/uL Normal 4.4 - 11.3 [facility] Comment on above: Performed By: #### V TDOH #### [address] [address] CHEST 2 VIEW PA AND LATon CHEST 2 VIEW PA AND LAT STUDY: Chest Radiographs; 12/26/2021, 1:09PM INDICATION: Dyspnea. Chest pain. Additional History: Asthma. COMPARISON: CXR 03/04/2019. ACCESSION NUMBER(S): [id number] ORDERING CLINICIAN: RYAN GOMEZ MD TECHNIQUE: Frontal and lateral chest. FINDINGS: Lungs grossly appear clear. No visible pneumothorax. Heart size within normal limits. No acute bony abnormality detected by this technique. No free air under the diaphragm. IMPRESSION: No convincing radiographic evidence for pneumonia or pulmonary edema. Signed by Reinier Bhakta D.O. Electronically signed by: REINIER BHAKTA DO Normal [facility] PANELon 2021 Albumin [Mass/Vol] 4.1 g/dL Normal 3.4 - 5.0 [facility] Comment on above: Performed By: #### V TDOH #### [place] [id number] ALP [Catalytic activity/Vol] 33 U/L Normal 33 - 136 [facility] Comment on above: Performed By: #### V TDOH #### [place] [id number] ALT [Catalytic activity/Vol] 26 U/L Normal 7 - 45 [facility] Comment on above: Result Comment: Emma ents treated with Sulfasalazine may generate falsely decreased results for ALT. Performed By: #### V TDOH #### [address] [address] Anion gap [Moles/Vol] 13 mmol/L Normal 10 - 20 [facility] Comment on above: Performed By: #### V TDOH #### [place] [id number] AST [Catalytic activity/Vol] 29 U/L Normal 9 - 39 [facility] Comment on above: Performed By: #### V TDOH #### [address] [address] Bilirubin [Mass/Vol] 0.3 mg/dL Normal 0.0 - 1.2 [facility] Comment on above: Performed By: #### V TDOH #### [address] [address] Calcium [Mass/Vol] 9.6 mg/dL Normal 8.6 - 10.3 [facility] Comment on above: Performed By: #### V TDOH #### [address] [address] Chloride [Moles/Vol] 105 mmol/L Normal 98 - 107 [facility] Comment on above: Performed By: #### V TDOH #### [address] [address] Creatinine [Mass/Vol] 1.23 mg/dL High 0.50 - 1.05 [facility] Comment on above: Performed By: #### V TDOH #### [address] [address] GFR/1.73 sq M.predicted among non-blacks MDRD (S/P/Bld) [Vol rate/Area] 46 mL/min/{1.73_m2} Abnormal >90 [facility] Comment on above: Result Comment: CALC ULATIONS OF ESTIMATED GFR ARE PERFORMED USING THE 2020 CKD-EPI STUDY REFIT EQUATION WITHOUT THE RACE VARIABLE FOR THE IDMS-TRACEABLE CREATININE METHODS. https://jasn.asnjournals.org/content/early//ASN.60922 72002 Performed By: #### V TDOH #### [address] [address] Glucose [Mass/Vol] 175 mg/dL High 74 - 99 [facility] Comment on above: Performed By: #### V TDOH #### [address] [address] HCO3 (Bld) [Moles/Vol] 24 mmol/L Normal 21 - 32 [facility] Comment on above: Performed By: #### V TDOH #### [address] [address] Potassium [Moles/Vol] 4.3 mmol/L Normal 3.5 - 5.3 [facility] Comment on above: Performed By: #### V TDOH #### [address] [address] Protein [Mass/Vol] 6.8 g/dL Normal 6.4 - 8.2 [facility] Comment on above: Performed By: #### V TDOH #### [address] [address] Sodium [Moles/Vol] 138 mmol/L Normal 136 - 145 [facility] Comment on above: Performed By: #### V TDOH #### [address] [address] Urea nitrogen [Mass/Vol] 23 mg/dL Normal 6 - 23 [facility] Comment on above: Performed By: #### V TDOH #### [address] [address] MAGNESIUMon 12-26-2021 Magnesium [Mass/Vol] 1.63 mg/dL Normal 1.60 - 2.40 [facility] Comment on above: Performed By: #### V TDOH #### [address] [address] FOOT COMPLETE LTon 1 FOOT COMPLETE LT [place] [address] Patient: CAROLYN CINTRON Phone#: : 1945 Age: 75 Gender: F Pt. Type: Out Account: [id number] Location: Ordering: BARBARA RIGGINS Exam Date: 03/16/2021/15:54 Family Phys: RYAN GOMEZ Charge Code: 237598 Physician: Stanton Order #: [id number] DLP Dose#: PROCEDURE: X-RAY FOOT LT COMPLETE MIN 3 VIEWS COMPARISON: None. INDICATIONS: Pain. FINDINGS: BONES: The bones of the foot are osteopenic. There is no evidence of acute bone abnormality. There has been prior surgery at the 5th digit. The middle phalanx is absent. A small calcaneal spur is present. SOFT TISSUES: Negative. No visible soft tissue swelling. EFFUSION: None visible. OTHER: Negative. CONCLUSION: 1. There is no evidence of acute bone abnormality. Bones of the foot are osteopenic. Dictated by: Mayuri Mueller MD on 03/16/2021 at 16:20 Approved by: Mayuri Mueller MD on 03/16/2021 at 16:22 Normal [facility] ECG 12-LEADOrdered By: Reese Hicks on 03-09-2021 Atrial Rate [facility] P Adger [facility] P-R Interval [facility] Q-T Interval [facility] Q-T Interval (corrected) [facility] QRS Duration [facility] QTC Calculation (Bezet) [facility] R Adger [facility] T Adger [facility] Ventricular Rate [facility] ECHOCARDIOGRAM COMPLETEon Aortic valve area 2.03230 cm [facility] AV mean gradient 4.96853 mmHg [facility] AV peak gradient 7.88176 mmHg [facility] EF 69.1547 % [facility] Patient Info Name: CAROLYN CINTRON Age: 74 years : 1945 Gender: Female Ht: 160 cm Wt: 93 kg BSA: 2.08 m2 HR: 59 bpm BP: 134 / 70 mmHg Heart Rhythm: Sinus Rhythm Technical Quality: Fair Exam Date: 06/27/2020 10:05 AM Patient Status: Outpatient 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 Left ventricular systolic function is normal with an ejection fraction by Biplane Method of Discs of 69 %. 2. The left ventricular diastolic function is normal for age. 3. No significant valvular heart disease is identified. History/Risk Factors 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: Yes Dyslipidemia: Yes Coronary Artery Disease (CAD) Yes Diabetes Mellitus: Yes Tobacco Use: Never Family History: Coronary Artery Disease Procedure(s): Complete two-dimensional, color flow and Doppler transthoracic echocardiogram is performed. Left Ventricle Left ventricular chamber dimension is normal. Left ventricular systolic function is normal with an ejection fraction by Biplane Method of Discs of 69 %. Normal left ventricular mass. The left ventricular diastolic function is normal for age. Right Ventricle Right ventricular chamber dimension is normal. Right ventricular systolic function is normal. Left Atria Left atrial chamber dimension is normal. Right Atria Right atrial chamber dimension is normal. Atrial Septum Lipomatous hypertrophy of the interatrial septum. Aortic Valve The aortic valve is trileaflet. There is no aortic valve sclerosis. There is no aortic valve stenosis with a peak velocity of 1.4 m/s, mean gradient of 4 mmHg, and aortic valve area of 2.12 cm2. There is no aortic valve regurgitation. Pulmonic Valve The pulmonic valve is normal. There is no pulmonic valve stenosis. There is trace pulmonic regurgitation. Mitral Valve The mitral valve has normal leaflets. There is no mitral valve stenosis. There is trace mitral valve regurgitation. Tricuspid Valve The tricuspid valve leaflets are normal. There is no significant tricuspid valve stenosis. There is trace tricuspid valve regurgitation. There is no pulmonary hypertension, estimated right ventricle systolic pressure is 24 mmHg. Pulmonary Veins Normal systolic pulmonary venous forward flow. Pericardium/Pleural The pericardium appears epicardial fat pad. There is no pericardial effusion. Inferior Vena Cava Normal inferior vena cava with >50% collapse upon inspiration consistent with normal right atrial pressure. Aorta The aortic measurements are indexed to age and body surface area. The aortic root is normal measuring 3.16 cm with an index of 1.52 cm/m2. The proximal ascending aorta is normal measuring 3.3 cm with an index of 1.57 cm/m2. Left Ventricular Outflow Tract - Name Value Normal - LVOT 2D - LVOT Diameter 2.08 cm LVOT Doppler - LVOT Peak Velocity 1.00 m/s LVOT Peak Gradient 4 mmHg LVOT Mean Gradient 2 mmHg LVOT VTI 19.46 cm LVOT VTI/AV VTI Ratio 0.63 LVOT Stroke Volume 65.82 ml LVOT Stroke Index 31.70 ml/m2 Pulmonic Valve - Name Value Normal - PV 2D - RVOT Diameter (2D) 2.33 cm 1.70-2.70 RVOT Doppler - RVOT Peak Velocity 76.38 cm/s RVOT Peak Gradient 2 mmHg RVOT Mean Gradient 1 mmHg RVOT VTI 18.72 cm PV Doppler - PV Peak Velocity 0.88 m/s PV Peak Gradient 3 mmHg PV Mean Gradient 2 mmHg PV VTI 18.89 cm PV Area (Cont Eq VTI) 4.22 cm2 PV Area Index (Cont Eq VTI) 2.03 cm2/m2 PV Area (Cont Eq Latrell) 3.69 cm2 PV Area Index (Cont Eq Latrell) 1.78 cm2/m2 Mitral Valve - Name Value Normal - MV Doppler - MV Peak Velocity 0.82 m/s MV Peak Gradient 3 mmHg MV Mean Gradient 1 mmHg MV VTI 27.76 cm MV Decel [place] 346.04 cm/s2 MV PHT 63 ms MV Area (PHT) 3.47 cm2 4.00-5.00 MV Area (Cont Eq VTI) 2.37 cm2 MV Area Index (Cont Eq VTI) 1.14 cm2/m2 MV Diastolic Function - MV E Peak Velocity 0.76 m/s MV A Peak Velocity 0.63 m/s MV E/A 1.19 MV Decel Time 218 ms MV Annular TDI - MV Septal e' Velocity 7.38 cm/s >=8.00 MV E/e' (Septal) 10.24 <=8.00 MV Lateral e' Velocity 8.99 cm/s >=10.00 MV E/e' (Lateral) 8.41 <=8.00 MV e' Average 8.18 MV E/e' (Average) 9.33 Tricuspid Valve - Name Value Normal - TV Regurgitation Doppler - TR Peak Velocity 2.27 m/s TR Peak Gradient 21 mmHg Estimated PAP/RSVP - RA Pressure 3 mmHg <=5 PA Systolic Pressure 24 mmHg <=36 RV Systolic Pressure 24 mmHg <36 Aorta - Name Value Normal - Ascending Aorta - Ao Root Diameter (2D) 3.16 cm 2.70-3.30 Ao Root Diam Index (2D) 1.52 cm/m2 1.60-2.00 Prox Asc Ao Diameter 3.3 cm 2.3-3.1 Prox Asc Ao Diameter Index 1.57 cm/m2 1.30-1.90 Venous - Name Value Normal - IVC/SVC - IVC Diameter (Exp 2D) 1.44 cm <=2.10 Aortic Valve - Name Value Normal - AV Doppler - AV Peak Velocity 1.4 m/s AV Peak Gradient 8 mmHg AV Mean Gradient 4 mmHg AV VTI 31.10 cm AV Area (Cont Eq VTI) 2.12 cm2 AV Area Index (Cont Eq VTI) 1 cm2/m2 AV Area (Cont Eq Latrell) 2.45 cm2 AV Area Index (Cont Eq Latrell) 1 cm2/m2 LVOT Vmax/AV Vmax 0.72 LVOT VTI/AV VTI Ratio 0.63 AV Regurgitation 2D - LVOT Area 3.38 cm2 Ventricles - Name Value Normal - LV Dimensions 2D/MM - IVS Diastolic Thickness (2D) 0.93 cm 0.60-0.90 LVID Diastole (2D) 5.38 cm 3.80-5.20 LVIW Diastolic Thickness (2D) 0.87 cm 0.60-0.90 LVID Systole (2D) 3.37 cm 2.20-3.50 LVOT Diameter 2.08 cm LV Mass (2D Cubed) 178 g 67-162 LV Mass Index (2D Cubed) 86 g/m2 43-95 Relative Wall Thickness (2D) 0.32 <=0.42 LV Fractional Shortening/Ejection Fraction 2D/MM - LV Fractional Shortening (2D) 37 % 27-45 LV EF (2D Teichlalitaz) 67 % 54-74 LV Diastolic Volume (4C MOD) 94 ml LV Systolic Volume (4C MOD) 30 ml LV EF (4C MOD) 68 % LV Diastolic Volume (2C MOD) 105 ml LV Systolic Volume (2C MOD) 32 ml LV EF (2C MOD) 69 % LV Diastolic Volume (BP MOD) 101.35 ml 46.00-106.00 LV Diastolic Volume Index (BP MOD) 48.81 ml/m2 29.00-61.00 LV Systolic Volume (BP MOD) 31.26 ml 14.00-42.00 LV Systolic Volume Index (BP MOD) 15.06 ml/m2 8.00-24.00 LV EF (BP MOD) 69 % 55-70 LV Diastolic Length (4C) 6.95 cm LV Systolic Length (4C) 5.65 cm LV Stroke Volume (4C MOD) 63.65 ml LV SI (4C MOD) 30.65 ml/m2 RV Dimensions 2D/MM - RV Basal Diastolic Dimension 3.68 cm 2.50-4.10 TAPSE 1.85 cm >=1.70 RV Systolic Function - RV s' Velocity 0.09 m/s 0.10-0.19 Atria - Name Value Normal - LA Dimensions - LA Minor Adger Width 4.94 cm LA Area (4C) 17.71 cm2 LA Area (2C) 16.61 cm2 LA Length (2C) 4.56 cm LA Volume (4C MOD) 50.85 ml LA Volume (2C MOD) 49.40 ml LA Volume (4C A-L) 53.97 ml LA Volume (2C A-L) 51.36 ml LA Volume (BP A-L) 54.73 ml LA Volume Index (BP A-L) 26.36 ml/m2 <=34.00 LA Volume (BP MOD) 51.97 ml LA Volume Index (BP MOD) 25.03 ml/m2 16.00-34.00 RA Dimensions - RA Systolic Major Adger Length (4C) 3.87 cm <=5.30 RA Area (4C) 10.96 cm2 <=18.00 RA Area (4C) Index 5.28 cm2/m2 RA ESV (4C MOD) 25.32 ml 15.00-27.00 RA ESV Index (4C MOD) 12.19 ml/m2 <=27.00 Report Signatures Finalized by Nicole Carballo MD on 06/27/2020 04:28 PM [facility], Rad In [facility] Xper Echopacs - 06/27/2020 4:29 PM EST Patient Info Name: CAROLYN CINTRON Age: 74 years : 1945 Gender: Female Ht: 160 cm Wt: 93 kg BSA: 2.08 m2 HR: 59 bpm BP: 134 / 70 mmHg Heart Rhythm: Sinus Rhythm Technical Quality: Fair Exam Date: 06/27/2020 10:05 AM Patient Status: Outpatient Shell[employer] Dred[employer] Operator: Kika Richardson, PRINCE, RCS Exam Type: ECHOCARDIOGRAM COMPLETE Study Info Indications - - Dyspnea Referring Physician: Ryan Gomez; [id number] BMI: 36.31 kg/m2 Summary 1. Left ventricular systolic function is normal with an ejection fraction by Biplane Method of Discs of 69 %. 2. The left ventricular diastolic function is normal for age. 3. No significant valvular heart disease is identified. History/Risk Factors 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: Yes Dyslipidemia: Yes Coronary Artery Disease (CAD) Yes Diabetes Mellitus: Yes Tobacco Use: Never Family History: Coronary Artery Disease Procedure(s): Complete two-dimensional, color flow and Doppler transthoracic echocardiogram is performed. Left Ventricle Left ventricular chamber dimension is normal. Left ventricular systolic function is normal with an ejection fraction by Biplane Method of Discs of 69 %. Normal left ventricular mass. The left ventricular diastolic function is normal for age. Right Ventricle Right ventricular chamber dimension is normal. Right ventricular systolic function is normal. Left Atria Left atrial chamber dimension is normal. Right Atria Right atrial chamber dimension is normal. Atrial Septum Lipomatous hypertrophy of the interatrial septum. Aortic Valve The aortic valve is trileaflet. There is no aortic valve sclerosis. There is no aortic valve stenosis with a peak velocity of 1.4 m/s, mean gradient of 4 mmHg, and aortic valve area of 2.12 cm2. There is no aortic valve regurgitation. Pulmonic Valve The pulmonic valve is normal. There is no pulmonic valve stenosis. There is trace pulmonic regurgitation. Mitral Valve The mitral valve has normal leaflets. There is no mitral valve stenosis. There is trace mitral valve regurgitation. Tricuspid Valve The tricuspid valve leaflets are normal. There is no significant tricuspid valve stenosis. There is trace tricuspid valve regurgitation. There is no pulmonary hypertension, estimated right ventricle systolic pressure is 24 mmHg. Pulmonary Veins Normal systolic pulmonary venous forward flow. Pericardium/Pleural The pericardium appears epicardial fat pad. There is no pericardial effusion. Inferior Vena Cava Normal inferior vena cava with >50% collapse upon inspiration consistent with normal right atrial pressure. Aorta The aortic measurements are indexed to age and body surface area. The aortic root is normal measuring 3.16 cm with an index of 1.52 cm/m2. The proximal ascending aorta is normal measuring 3.3 cm with an index of 1.57 cm/m2. Left Ventricular Outflow Tract - Name Value Normal - LVOT 2D - LVOT Diameter 2.08 cm LVOT Doppler - LVOT Peak Velocity 1.00 m/s LVOT Peak Gradient 4 mmHg LVOT Mean Gradient 2 mmHg LVOT VTI 19.46 cm LVOT VTI/AV VTI Ratio 0.63 LVOT Stroke Volume 65.82 ml LVOT Stroke Index 31.70 ml/m2 Pulmonic Valve - Name Value Normal - PV 2D - RVOT Diameter (2D) 2.33 cm 1.70-2.70 RVOT Doppler - RVOT Peak Velocity 76.38 cm/s RVOT Peak Gradient 2 mmHg RVOT Mean Gradient 1 mmHg RVOT VTI 18.72 cm PV Doppler - PV Peak Velocity 0.88 m/s PV Peak Gradient 3 mmHg PV Mean Gradient 2 mmHg PV VTI 18.89 cm PV Area (Cont Eq VTI) 4.22 cm2 PV Area Index (Cont Eq VTI) 2.03 cm2/m2 PV Area (Cont Eq Latrell) 3.69 cm2 PV Area Index (Cont Eq Latrell) 1.78 cm2/m2 Mitral Valve - Name Value Normal - MV Doppler - MV Peak Velocity 0.82 m/s MV Peak Gradient 3 mmHg MV Mean Gradient 1 mmHg MV VTI 27.76 cm MV Decel [place] 346.04 cm/s2 MV PHT 63 ms MV Area (PHT) 3.47 cm2 4.00-5.00 MV Area (Cont Eq VTI) 2.37 cm2 MV Area Index (Cont Eq VTI) 1.14 cm2/m2 MV Diastolic Function - MV E Peak Velocity 0.76 m/s MV A Peak Velocity 0.63 m/s MV E/A 1.19 MV Decel Time 218 ms MV Annular TDI - MV Septal e' Velocity 7.38 cm/s >=8.00 MV E/e' (Septal) 10.24 <=8.00 MV Lateral e' Velocity 8.99 cm/s >=10.00 MV E/e' (Lateral) 8.41 <=8.00 MV e' Average 8.18 MV E/e' (Average) 9.33 Tricuspid Valve - Name Value Normal - TV Regurgitation Doppler - TR Peak Velocity 2.27 m/s TR Peak Gradient 21 mmHg Estimated PAP/RSVP - RA Pressure 3 mmHg <=5 PA Systolic Pressure 24 mmHg <=36 RV Systolic Pressure 24 mmHg <36 Aorta - Name Value Normal - Ascending Aorta - Ao Root Diameter (2D) 3.16 cm 2.70-3.30 Ao Root Diam Index (2D) 1.52 cm/m2 1.60-2.00 Prox Asc Ao Diameter 3.3 cm 2.3-3.1 Prox Asc Ao Diameter Index 1.57 cm/m2 1.30-1.90 Venous - Name Value Normal - IVC/SVC - IVC Diameter (Exp 2D) 1.44 cm <=2.10 Aortic Valve - Name Value Normal - AV Doppler - AV Peak Velocity 1.4 m/s AV Peak Gradient 8 mmHg AV Mean Gradient 4 mmHg AV VTI 31.10 cm AV Area (Cont Eq VTI) 2.12 cm2 AV Area Index (Cont Eq VTI) 1 cm2/m2 AV Area (Cont Eq Latrell) 2.45 cm2 AV Area Index (Cont Eq Latrell) 1 cm2/m2 LVOT Vmax/AV Vmax 0.72 LVOT VTI/AV VTI Ratio 0.63 AV Regurgitation 2D - LVOT Area 3.38 cm2 Ventricles - Name Value Normal - LV Dimensions 2D/MM - IVS Diastolic Thickness (2D) 0.93 cm 0.60-0.90 LVID Diastole (2D) 5.38 cm 3.80-5.20 LVIW Diastolic Thickness (2D) 0.87 cm 0.60-0.90 LVID Systole (2D) 3.37 cm 2.20-3.50 LVOT Diameter 2.08 cm LV Mass (2D Cubed) 178 g 67-162 LV Mass Index (2D Cubed) 86 g/m2 43-95 Relative Wall Thickness (2D) 0.32 <=0.42 LV Fractional Shortening/Ejection Fraction 2D/MM - LV Fractional Shortening (2D) 37 % 27-45 LV EF (2D Teicholz) 67 % 54-74 LV Diastolic Volume (4C MOD) 94 ml LV Systolic Volume (4C MOD) 30 ml LV EF (4C MOD) 68 % LV Diastolic Volume (2C MOD) 105 ml LV Systolic Volume (2C MOD) 32 ml LV EF (2C MOD) 69 % LV Diastolic Volume (BP MOD) 101.35 ml 46.00-106.00 LV Diastolic Volume Index (BP MOD) 48.81 ml/m2 29.00-61.00 LV Systolic Volume (BP MOD) 31.26 ml 14.00-42.00 LV Systolic Volume Index (BP MOD) 15.06 ml/m2 8.00-24.00 LV EF (BP MOD) 69 % 55-70 LV Diastolic Length (4C) 6.95 cm LV Systolic Length (4C) 5.65 cm LV Stroke Volume (4C MOD) 63.65 ml LV SI (4C MOD) 30.65 ml/m2 RV Dimensions 2D/MM - RV Basal Diastolic Dimension 3.68 cm 2.50-4.10 TAPSE 1.85 cm >=1.70 RV Systolic Function - RV s' Velocity 0.09 m/s 0.10-0.19 Atria - Name Value Normal - LA Dimensions - LA Minor Adger Width 4.94 cm LA Area (4C) 17.71 cm2 LA Area (2C) 16.61 cm2 LA Length (2C) 4.56 cm LA Volume (4C MOD) 50.85 ml LA Volume (2C MOD) 49.40 ml LA Volume (4C A-L) 53.97 ml LA Volume (2C A-L) 51.36 ml LA Volume (BP A-L) 54.73 ml LA Volume Index (BP A-L) 26.36 ml/m2 <=34.00 LA Volume (BP MOD) 51.97 ml LA Volume Index (BP MOD) 25.03 ml/m2 16.00-34.00 RA Dimensions - RA Systolic Major Adger Length (4C) 3.87 cm <=5.30 RA Area (4C) 10.96 cm2 <=18.00 RA Area (4C) Index 5.28 cm2/m2 RA ESV (4C MOD) 25.32 ml 15.00-27.00 RA ESV Index (4C MOD) 12.19 ml/m2 <=27.00 Report Signatures Finalized by Nicole Carballo MD on 06/27/2020 04:28 PM [facility] XR Chest 2 Viewson 03-04- 9 XR Chest 2 Views Exam Date/Time: 03/04/2019 11:14 EDT Reason for Exam: cough Report STUDY: XR Chest 2 Views; 03/04/2019 11:14 am INDICATION: cough. COMPARISON: 03/08/2015 ACCESSION NUMBER(S): [id number] ORDERING CLINICIAN: Ryan Gomez FINDINGS: PA and lateral views of the chest were obtained. No focal infiltrate, pleural effusion or pneumothorax is identified. The cardiac silhouette is within normal limits for size. Mild discogenic degenerative changes are seen throughout the thoracic spine. IMPRESSION: No focal infiltrate or pneumothorax. FINAL REPORT Dictated: 03/04/2019 11:26 am Shahbaz Younger MD Signed (Electronic Signature): 03/04/2019 11:26 am Signed by: Shahbaz Younger MD Technologist: AARON [facility] BD Bone Density DEXAon 12-18 BD Bone Density DEXA Exam Date/Time: 12/17/2018 14:36 EDT Reason for Exam: Z78.0 MENOPAUSAL STATE Report STUDY: BD Bone Density DEXA; 12/17/2018 2:36 pm INDICATION: Z78.0 MENOPAUSAL STATE. Evaluate for osteopenia/osteoporosis , COMPARISON: None. ACCESSION NUMBER(S): [id number] ORDERING CLINICIAN: Ryan Gomez FINDINGS: Standard measurements were obtained utilizing an [employer] X-ray Absorptiometry bone densitometer. Data obtained includes planar bone density measurements over the left hip and lumbar spine. Comparison of measured data and standardized mean data for a young adult population (when peak bone mass occurs) results in a T score. This represents the number of standard deviations above or below the mean of a young adult population. Comparison of measured data to standards from an age-adjusted population similarly yields a Z score. Left femoral neck Bone density: 0.639 g/cm2 T score:-1.9 Z Score: 0.1 Left forearm Bone density: 0.555 g/cm2 T Score:-2.2 Z Score: 0.2 World Health Organization (WHO) criteria defines normal bone density as that which is less than 1 standard deviation below the mean of a young adult population. Osteopenia is defined as a measured bone density that is between 1 and 2.5 standard deviations below the mean of a young adult population. Osteoporosis is defined as a measured bone density that is greater than or equal to 2.5 standard deviations below the mean of a young adult population. IMPRESSION: Exam Date/Time: 12/17/2018 14:36 EDT Report According to World Health Organization criteria, bone mineral density of the left femoral neck and left forearm is osteopenic. The patient is at increased risk for fracture. FINAL REPORT Dictated: 12/18/2018 4:30 pm Javy Serrano MD Signed (Electronic Signature): 12/18/2018 4:30 pm Signed by: Javy Serrano MD Technologist: [facility] ECHOCARDIOGRAM 2D COMPLETEon 12-18-2018 Transthoracic Echocardiogram _ Patient: HONEY Bedolla [facility] Rec#: [id number] (Age): 1945(73y) Height: 160.02(cm)/62(i Study Date: 12/18/2018 Weight: 95.26(kg)/210(l Room#: BSA: [id number] Type: Loc: Sex: F _ Reading: Liz Childs M.D. Referring: DENISSE RICHARDSON ANN Nurse: Nicole Uribe RN [employer] Operator: Zuleyka Mcguire RDCS, RVT History: Coronary artery disease. Diabetes. Hyperlipidemia 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. Hypothyroidism. Prior echo. Study Quality The study quality is technically difficult. The study is technically limited due to patient body habitus. Summary: Patient identity verified (pause and confirm). Current HP present on patient chart. Procedure explained and patient verified understanding. Consent obtained for procedure. Definity explained to patient. Patient verbalizes understanding and agrees to proceed. Definity 1.3ml/8.7ml normal sterile saline 1 ml total given IV over 30-60 seconds. Conclusions: Normal LV size and systolic function LVEF 65-70% Normal RV size and function Normal diastolic function No hemodynamically significant valvular disease Findings Reason For Study: Dyspnea. Left Ventricle: The left ventricular chamber size is normal. There is normal left ventricular systolic function. The estimated global ejection fraction is 65-70%. Normal left ventricular diastolic filling is observed. Left Atrium: The left atrial chamber size is normal. Right Ventricle: The right ventricular cavity size is normal. The right ventricular global systolic function is normal. Right Atrium: The right atrial cavity size is normal. Aortic Valve: The aortic valve is trileaflet. The aortic valve leaflets are mildly thickened. There is no hemodynamically significant stenosis. There is no evidence of aortic regurgitation. Mitral Valve: The mitral valve leaflets appear normal. There is no evidence of mitral stenosis. There is no evidence of mitral regurgitation. Tricuspid Valve: The tricuspid valve leaflets are normal. There is no tricuspid stenosis. There is a trace tricuspid regurgitation. The right ventricular systolic pressure is 19.32 mmHg. Pulmonic Valve: The pulmonic valve appears normal. There is no pulmonic stenosis. There is no evidence of pulmonic regurgitation. Pericardium: The pericardium appears normal. Aorta: The aorta appears normal. Venous: The inferior vena cava appears normal. HR 64 BP 136/76 Measurements Chambers 2D Name Value Normal Range IVSd (2D) 1.17 cm none LVPWd (2D) 1.3 cm none IVS:LVPW ratio (2D) 0.9 ratio none LVIDd (2D) 4.77 cm none LVIDs (2D) 2.94 cm none LVIDd (2D) index 2.42 cm/m2 none LVIDs (2D) index 1.49 cm/m2 none LV FS (2D) 38.36 % none LV FS (Teichholz) (2D) 38.4 % none LV FS (cube) (2D) 38.4 % none EF Teichholz (2D) 68.56 % none Ao root diameter (2D) 3.5 cm none Aortic root diameter (2D) inde1.77 cm/m2 none Volumes/Mass Name Value Normal Range LA ESV SP 4CH (MOD) 36.3 ml none LA ESV SP 2CH (MOD) 41.8 ml none LA ESV BP (MOD) 41 ml none LA ESV BP (MOD) index 20.77 ml/m2 none LV EDV SP 4CH (MOD) 96.4 ml none LV ESV SP 4CH (MOD) 29.2 ml none EF SP 4CH (MOD) 69.71 % none LV EDV SP 2CH (MOD) 96.4 ml none LV ESV SP 2CH (MOD) 33 ml none EF SP 2CH (MOD) 65.77 % none LV EDV BP 96.9 ml none LV ESV BP 31.2 ml none BP EF (MOD) 67.8 % none LV EDV BP index 49.08 ml/m2 none LV ESV BP index 15.8 ml/m2 none LV mass (2D) 226.05 g none LV mass (2D) index 114.49 g/m2 none Diastolic/Systolic Function Name Value Normal Range MV E-wave Vmax 0.62 m/sec none MV deceleration time 271 msec none MV A-wave Vmax 0.63 m/sec none MV E:A ratio 0.98 ratio (1.1 - 1.5) LV E:e' septal ratio 8.9 ratio none LV E:e' lateral ratio 8.3 ratio none TAPSE 1.59 cm none Aortic Valve Name Value Normal Range AV Vmax 1.44 m/sec (1 - 1.7) AV VTI 32.2 cm none AV peak gradient 8.29 mmHg (Less Than 36) AV mean gradient 4 mmHg (Less Than 20) LVOT diameter 2 cm (1.7 - 2.5) LVOT Vmax 0.92 m/sec (0.7 - 1.1) LVOT VTI 20.4 cm none LVOT peak gradient 3 mmHg none LVOT mean gradient 2 mmHg none DOI (VTI) 0.63 ratio none DOI (Vmax) 0.64 ratio none SV LVOT 64.06 ml none CO LVOT 4.1 l/min none Cardiac index 2.08 l/min/m2 none LOUISE (continuity Vmax) 2 cm2 none LOUISE (continuity Vmax) index 1.01 cm2/m2 none LOUISE (continuity VTI) 1.99 cm2 none LOUISE (continuity VTI) index 1.01 cm2/m2 none Ascending Ao 3.3 cm none Mitral Valve Name Value Normal Range MV Vmax 0.87 m/sec (0.6 - 1.3) MV VTI 30.4 cm none MV peak gradient 3.03 mmHg none MV mean gradient 1 mmHg none MV PHT 82 msec none MVA (PHT) 2.68 cm2 none MVA (continuity VTI) 2.11 cm2 none Tricuspid Valve Name Value Normal Range TR Vmax 2.02 m/sec none TR peak gradient 16.32 mmHg none RAP 3 mmHg none RVSP 19.32 mmHg none Pulmonic Valve/Qp:Qs Name Value Normal Range PV Vmax 1.06 m/sec (0.6 - 0.9) PV VTI 20.9 cm none PV peak gradient 4.49 mmHg none PV mean gradient 2 mmHg none Electronically Signed at 12/18/2018 13:00:24 by: Liz Childs M.D. [facility] Interface, Rad In [facility] Xper Echopacs - 12/18/2018 1:09 PM EDT Transthoracic Echocardiogram _ Patient: HONEY Bedolla [facility] Rec#: [id number] (Age): 1945(73y) Height: 160.02(cm)/62(i Study Date: 12/18/2018 Weight: 95.26(kg)/210(l Room#: BSA: [id number] Type: Loc: Sex: F _ Reading: Liz Childs M.D. Referring: DENISSE RICHARDSON ANN Nurse: Nicole Uribe RN [employer] Operator: Zuleyka Mcguire RDCS, RVT History: Coronary artery disease. Diabetes. Hyperlipidemia 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. Hypothyroidism. Prior echo. Study Quality The study quality is technically difficult. The study is technically limited due to patient body habitus. Summary: Patient identity verified (pause and confirm). Current HP present on patient chart. Procedure explained and patient verified understanding. Consent obtained for procedure. Definity explained to patient. Patient verbalizes understanding and agrees to proceed. Definity 1.3ml/8.7ml normal sterile saline 1 ml total given IV over 30-60 seconds. Conclusions: Normal LV size and systolic function LVEF 65-70% Normal RV size and function Normal diastolic function No hemodynamically significant valvular disease Findings Reason For Study: Dyspnea. Left Ventricle: The left ventricular chamber size is normal. There is normal left ventricular systolic function. The estimated global ejection fraction is 65-70%. Normal left ventricular diastolic filling is observed. Left Atrium: The left atrial chamber size is normal. Right Ventricle: The right ventricular cavity size is normal. The right ventricular global systolic function is normal. Right Atrium: The right atrial cavity size is normal. Aortic Valve: The aortic valve is trileaflet. The aortic valve leaflets are mildly thickened. There is no hemodynamically significant stenosis. There is no evidence of aortic regurgitation. Mitral Valve: The mitral valve leaflets appear normal. There is no evidence of mitral stenosis. There is no evidence of mitral regurgitation. Tricuspid Valve: The tricuspid valve leaflets are normal. There is no tricuspid stenosis. There is a trace tricuspid regurgitation. The right ventricular systolic pressure is 19.32 mmHg. Pulmonic Valve: The pulmonic valve appears normal. There is no pulmonic stenosis. There is no evidence of pulmonic regurgitation. Pericardium: The pericardium appears normal. Aorta: The aorta appears normal. Venous: The inferior vena cava appears normal. HR 64 BP 136/76 Measurements Chambers 2D Name Value Normal Range IVSd (2D) 1.17 cm none LVPWd (2D) 1.3 cm none IVS:LVPW ratio (2D) 0.9 ratio none LVIDd (2D) 4.77 cm none LVIDs (2D) 2.94 cm none LVIDd (2D) index 2.42 cm/m2 none LVIDs (2D) index 1.49 cm/m2 none LV FS (2D) 38.36 % none LV FS (Teichholz) (2D) 38.4 % none LV FS (cube) (2D) 38.4 % none EF Teichholz (2D) 68.56 % none Ao root diameter (2D) 3.5 cm none Aortic root diameter (2D) inde1.77 cm/m2 none Volumes/Mass Name Value Normal Range LA ESV SP 4CH (MOD) 36.3 ml none LA ESV SP 2CH (MOD) 41.8 ml none LA ESV BP (MOD) 41 ml none LA ESV BP (MOD) index 20.77 ml/m2 none LV EDV SP 4CH (MOD) 96.4 ml none LV ESV SP 4CH (MOD) 29.2 ml none EF SP 4CH (MOD) 69.71 % none LV EDV SP 2CH (MOD) 96.4 ml none LV ESV SP 2CH (MOD) 33 ml none EF SP 2CH (MOD) 65.77 % none LV EDV BP 96.9 ml none LV ESV BP 31.2 ml none BP EF (MOD) 67.8 % none LV EDV BP index 49.08 ml/m2 none LV ESV BP index 15.8 ml/m2 none LV mass (2D) 226.05 g none LV mass (2D) index 114.49 g/m2 none Diastolic/Systolic Function Name Value Normal Range MV E-wave Vmax 0.62 m/sec none MV deceleration time 271 msec none MV A-wave Vmax 0.63 m/sec none MV E:A ratio 0.98 ratio (1.1 - 1.5) LV E:e' septal ratio 8.9 ratio none LV E:e' lateral ratio 8.3 ratio none TAPSE 1.59 cm none Aortic Valve Name Value Normal Range AV Vmax 1.44 m/sec (1 - 1.7) AV VTI 32.2 cm none AV peak gradient 8.29 mmHg (Less Than 36) AV mean gradient 4 mmHg (Less Than 20) LVOT diameter 2 cm (1.7 - 2.5) LVOT Vmax 0.92 m/sec (0.7 - 1.1) LVOT VTI 20.4 cm none LVOT peak gradient 3 mmHg none LVOT mean gradient 2 mmHg none DOI (VTI) 0.63 ratio none DOI (Vmax) 0.64 ratio none SV LVOT 64.06 ml none CO LVOT 4.1 l/min none Cardiac index 2.08 l/min/m2 none LOUISE (continuity Vmax) 2 cm2 none LOUISE (continuity Vmax) index 1.01 cm2/m2 none LOUISE (continuity VTI) 1.99 cm2 none LOUISE (continuity VTI) index 1.01 cm2/m2 none Ascending Ao 3.3 cm none Mitral Valve Name Value Normal Range MV Vmax 0.87 m/sec (0.6 - 1.3) MV VTI 30.4 cm none MV peak gradient 3.03 mmHg none MV mean gradient 1 mmHg none MV PHT 82 msec none MVA (PHT) 2.68 cm2 none MVA (continuity VTI) 2.11 cm2 none Tricuspid Valve Name Value Normal Range TR Vmax 2.02 m/sec none TR peak gradient 16.32 mmHg none RAP 3 mmHg none RVSP 19.32 mmHg none Pulmonic Valve/Qp:Qs Name Value Normal Range PV Vmax 1.06 m/sec (0.6 - 0.9) PV VTI 20.9 cm none PV peak gradient 4.49 mmHg none PV mean gradient 2 mmHg none Electronically Signed at 12/18/2018 13:00:24 by: Liz Childs M.D. [facility] Stress test only, exerciseon 10-06-2018 Angina Index 0 [facility] Baseline BP 122/52 mmHg [facility] Baseline HR 65 bpm [facility] Estimated workload 4.6 METS [facility] Exercise duration (min) 2 min [facility] Exercise duration (sec) 35 sec [facility] Percent of predicted max HR 60 % [facility] Post peak BP 164/58 mmHg [facility] Post peak HR 89 bpm [facility] Target HR 126 bpm [facility] Non-diagnostic stand rocael treadmill stress test. Patient unable to exercise due to fatigue and dyspnea. No diagnostic ECG changes at submaximal workload (89% age-predicted maximal workload). Inability to achieve target heart rate decreases specificity and sensitivity of test to detect ischemia. Normal blood pressure response to exercise. No arrhythmias noted with exercise or into recovery. [facility] Mamm Screen w/CAD if perf ormed bilaton 10-05-2018 [place] Mamm Screen w/CAD if performed bilat Exam Date/Time: 10/05/2018 11:50 EDT Reason for Exam: SCREENING Z12.31 Report STUDY: NM Mamm Screen w/CAD if performed bilat; 10/05/2018 11:50 am ACCESSION NUMBER(S): [id number] ORDERING CLINICIAN: Ryan Gomez INDICATION: Screening. COMPARISON: 04/22/2005, 04/22/2006 and 05/10/2014 FINDINGS: The breast tissue is almost entirely fatty. No suspicious masses or calcifications are identified. CAD was utilized. IMPRESSION: No mammographic evidence of malignancy. BI-RADS CATEGORY: Category: 2 - Benign Finding. Recommendation: Normal Interval Follow-up, Over Age 40. Recall Interval: 12 Months. Breast Density: Fatty. For any future breast imaging appointments, please call [phone]). FINAL REPORT Dictated: 10/05/2018 2:28 pm Javy Serrano MD Signed (Electronic Signature): 10/05/2018 2:28 pm Signed by: Javy Serrano MD Technologist: [facility] Assessment: BI-RADS Category 2-Benign finding Recommendation: Normal interval follow-up Normal [facility] Uric Acidon 09-01-2018 Urate [Mass/Vol] 5.9 mg/dL Normal 2.3-6.7 [facility] Comment on above: Performed By: #### 2 [id number] #### ÁNGEL [employer] [address] [place] [address] Basic Metabolic Panelon 08-08 Calcium mass conc 9.4 mg/dL Normal 8.4-10.2 [facility] Comment on above: Performed By: #### C BCWOD, EDCTNI, CHEM8, PT, PTT, HBA1C #### Unless otherwise noted, all testing performed by [place] [address] CLIA: [id number] [employer] Operator: Delfin Spangler M.D. Chloride molar conc 103 mmol/L Normal 98-108 [facility] Comment on above: Performed By: #### C BCWOD, EDCTNI, CHEM8, PT, PTT, HBA1C #### Unless otherwise noted, all testing performed by [place] [address] CLIA: [id number] [employer] Operator: Delfin Spangler M.D. CO2 molar conc 27 mmol/L Normal 21-32 [facility] Comment on above: Performed By: #### C BCWOD, EDCTNI, CHEM8, PT, PTT, HBA1C #### Unless otherwise noted, all testing performed by [place] [address] CLIA: [id number] [employer] Operator: Delfin Spangler M.D. Creatinine mass conc 1.08 mg/dL Normal 0.60-1.20 [facility] Comment on above: Performed By: #### C BCWOD, EDCTNI, CHEM8, PT, PTT, HBA1C #### Unless otherwise noted, all testing performed by [place] [address] CLIA: [id number] [employer] Operator: Delfin Spangler M.D. GFR/1.73 sq M predicted among blacks MDRD vol rate/area (S/P/Bld) mL/min/{1.73_m2} Normal [facility] Comment on above: Result Comment: Afri can Finnish GFR Calc Performed By: #### C BCWOD, EDCTNI, CHEM8, PT, PTT, HBA1C #### Unless otherwise noted, all testing performed by [place] [address] CLIA: [id number] [employer] Operator: Delfin Spangler M.D. GFR/1.73 sq M predicted among non-blacks MDRD vol rate/area (S/P/Bld) 50 mL/min/{1.73_m2} Low >60 [facility] Comment on above: Result Comment: Non- GFR Calc eGFR is an estimated Glomerular Filtration Rate based on the value of the patient's serum creatinine. In outpatients, eGFR should be used as a helpful tool in screening for CKD. In inpatients or patients with acute renal failure, eGFR represents the GFR at the moment of the draw and should be used with caution. Performed By: #### C BCWOD, EDCTNI, CHEM8, PT, PTT, HBA1C #### Unless otherwise noted, all testing performed by [place] [address] CLIA: [id number] [employer] Operator: Delfin Spangler M.D. Glucose mass conc 178 mg/dL High 70-99 [facility] Comment on above: Result Comment: This test result might be falsely depressed or falsely elevated on samples drawn from patients taking Sulfasalazine and Sulfapyridine. Venipuncture should occur prior to taking either of these drugs. Performed By: #### C BCWOD, EDCTNI, CHEM8, PT, PTT, HBA1C #### Unless otherwise noted, all testing performed by [place] [phone] CLIA: [id number] [employer] Operator: Delfin Spangler M.D. Potassium molar conc 4.1 mmol/L Normal 3.5-5.1 [facility] Comment on above: Result Comment: mode rate hemolysis, result may be falsely increased. Performed By: #### C BCWOD, EDCTNI, CHEM8, PT, PTT, HBA1C #### Unless otherwise noted, all testing performed by [place] [address] CLIA: [id number] [employer] Operator: Delfin Spangler M.D. Sodium molar conc 140 mmol/L Normal 135-145 [facility] Comment on above: Performed By: #### C BCWOD, EDCTNI, CHEM8, PT, PTT, HBA1C #### Unless otherwise noted, all testing performed by [place] [address] CLIA: [id number] [employer] Operator: Delfin Spangler M.D. Urea nitrogen mass conc 20 mg/dL Normal 8-25 [facility] Comment on above: Performed By: #### C BCWOD, EDCTNI, CHEM8, PT, PTT, HBA1C #### Unless otherwise noted, all testing performed by [place] [address] CLIA: [id number] [employer] Operator: Delfin Spangler M.D. CBC w/o Diffon 08-31-2018 Erythrocyte distribution width Ratio (RBC) 16.6 % High 10.0-14.4 [facility] Comment on above: Performed By: #### C BCWOD, EDCTNI, CHEM8, PT, PTT, HBA1C #### Unless otherwise noted, all testing performed by [place] [address] CLIA: [id number] [employer] Operator: Delfin Spangler M.D. Hematocrit Volume Fraction (Bld) 36.7 % Normal 34.4-44.8 [facility] Comment on above: Performed By: #### C BCWOD, EDCTNI, CHEM8, PT, PTT, HBA1C #### Unless otherwise noted, all testing performed by [place] [address] CLIA: [id number] [employer] Operator: Delfin Spangler M.D. Hemoglobin mass conc (Bld) 12.2 g/dL Normal 11.6-15.4 [facility] Comment on above: Performed By: #### C BCWOD, EDCTNI, CHEM8, PT, PTT, HBA1C #### Unless otherwise noted, all testing performed by [place] [address] CLIA: [id number] [employer] Operator: Delfin Spangler M.D. MCH Entitic mass (RBC) 32.5 pg Normal 27.9-33.9 [facility] Comment on above: Performed By: #### C BCWOD, EDCTNI, CHEM8, PT, PTT, HBA1C #### Unless otherwise noted, all testing performed by [address] [place], [place] [address] CLIA: [id number] [employer] Operator: Delfin Spangler M.D. MCHC mass conc (RBC) 33.3 g/dL Normal 33.1-35.1 [facility] Comment on above: Performed By: #### C BCWOD, EDCTNI, CHEM8, PT, PTT, HBA1C #### Unless otherwise noted, all testing performed by [place] [address] CLIA: [id number] [employer] Operator: Delfin Spangler M.D. MCV Entitic volume (RBC) 97.6 fL Normal 82.6-98.9 [facility] Comment on above: Performed By: #### C BCWOD, EDCTNI, CHEM8, PT, PTT, HBA1C #### Unless otherwise noted, all testing performed by [place] [address] CLIA: [id number] [employer] Operator: Delfin Spangler M.D. Platelet mean volume Entitic volume (Bld) 8.4 fL Normal 7.0-10.6 [facility] Comment on above: Performed By: #### C BCWOD, EDCTNI, CHEM8, PT, PTT, HBA1C #### Unless otherwise noted, all testing performed by [place] [id number] CLIA: [id number] [employer] Operator: Delfin Spangler M.D. Platelets #/vol (Bld) 186 K/mcL Normal 162-402 [facility] Comment on above: Performed By: #### C BCWOD, EDCTNI, CHEM8, PT, PTT, HBA1C #### Unless otherwise noted, all testing performed by [place] [address] CLIA: [id number] [employer]: Delfin Spangler M.D. RBC #/vol (Bld) 3.76 M/mcL Normal 3.7-5.0 [facility] Comment on above: Performed By: #### C BCWOD, EDCTNI, CHEM8, PT, PTT, HBA1C #### Unless otherwise noted, all testing performed by [place] [address] CLIA: [id number] [employer]: Delfin Spangler M.D. WBC #/vol (Bld) 4.9 K/mcL Normal 3.4-10.6 [facility] Comment on above: Performed By: #### C BCWOD, EDCTNI, CHEM8, PT, PTT, HBA1C #### Unless otherwise noted, all testing performed by [place] [address] CLIA: [id number] [employer]: Delfin Spangler M.D. CHEST (ONE VIEW ONLY)on 08-08 CHEST (ONE VIEW ONLY) Final Report Accession No: [id number] Performed: Aug 31 2018 10:29AM Examination: CHEST (ONE VIEW ONLY) CLINICAL HISTORY: Chest pain. FINDINGS: Portable AP view of the chest obtained. Cardiomediastinal silhouette is normal. Lungs are clear, no evidence of infiltrate, suspicious nodule, or mass. No evidence of significant pleural fluid on this portable projection. No acute bony abnormality. IMPRESSION: No acute abnormality. Interpreting Physician: ADDIE HAMMONDS M.D. Trans: n/a : cc: Normal [facility] Cardiac Troponin-Ion 019 Troponin I.cardiac mass conc ng/mL Normal < 45.0 [facility] Comment on above: Result Comment: Elev ation of troponin indicates some degree of myocardial necrosis but unless there is a significant rise and/or fall (if elevated) identified, it unlikely that an acute event has taken place Samples from patients routinely receiving high dose biotin therapy (100-300 mg/day) may show falsely decreased results. Please correlate clinically. Performed By: #### C BCWOD, EDCTNI, CHEM8, PT, PTT, HBA1C #### Unless otherwise noted, all testing performed by [place] [address] CLIA: [id number] [employer]: Delfin Spangler M.D. Troponin I.cardiac mass conc No Biomarker evidence of myocardial injury within the past 14 hours. Normal [facility] Comment on above: Performed By: #### C BCWOD, EDCTNI, CHEM8, PT, PTT, HBA1C #### Unless otherwise noted, all testing performed by [place] [address] CLIA: [id number] [employer]: Delfin Spangler M.D. Troponin I.cardiac mass conc ng/mL Normal < 45.0 [facility] Comment on above: Result Comment: Elev ation of troponin indicates some degree of myocardial necrosis but unless there is a significant rise and/or fall (if elevated) identified, it unlikely that an acute event has taken place Samples from patients routinely receiving high dose biotin therapy (100-300 mg/day) may show falsely decreased results. Please correlate clinically. Performed By: #### C TNI, TSH, LIPID #### Unless otherwise noted, all testing performed by [place] [address] CLIA: [id number] [employer]: Delfin Spangler M.D. ED Cardiac Troponin-Ion 08-08 Troponin I.cardiac mass conc ng/mL Normal < 45 [facility] Comment on above: Result Comment: Elev ation of troponin indicates some degree of myocardial necrosis but unless there is a significant rise and/or fall (if elevated) identified, it unlikely that an acute event has taken place Samples from patients routinely receiving high dose biotin therapy (100-300 mg/day) may show falsely decreased results. Please correlate clinically. Performed By: #### C BCWOD, EDCTNI, CHEM8, PT, PTT, HBA1C #### Unless otherwise noted, all testing performed by [place] [address] CLIA: [id number] [employer]: Delfin Spangler M.D. Glucose, POCon 08-31-2018 Glucose mass conc 148 mg/dL High 80-115 [facility] Comment on above: Performed By: #### C BCWOD, EDCTNI, CHEM8, PT, PTT, HBA1C #### Unless otherwise noted, all testing performed by [place] [address] CLIA: [id number] [employer]: Delfin Spangler M.D. Hemoglobin A1Con 08-31-2018 Hemoglobin A1c/Hemoglobin.total mass fraction (Bld) 7.1 % High 4.1-6.5 [facility] Comment on above: Performed By: #### C BCWOD, EDCTNI, CHEM8, PT, PTT, HBA1C #### Unless otherwise noted, all testing performed by [place] [address] CLIA: [id number] [employer]: Delfin Spangler M.D. Lipid Panelon 08-31-2018 Cholesterol in HDL mass conc 23 mg/dL Low 40-59 [facility] Comment on above: Performed By: #### C TNI, TSH, LIPID #### Unless otherwise noted, all testing performed by [place] [address] CLIA: [id number] [employer]: Delfin Spangler M.D. Cholesterol in LDL mass conc See comment. Normal [facility] Comment on above: Result Comment: Trig lyceride > 400 mg/dl; unable to report calculated LDL. Performed By: #### C TNI, TSH, LIPID #### Unless otherwise noted, all testing performed by [place] [address] CLIA: [id number] [employer]: Delfin Spangler M.D. Cholesterol in VLDL mass conc See comment. Normal [facility] Comment on above: Result Comment: Trig lyceride > 400 mg/dl; unable to report calculated VLDL. Performed By: #### C TNI, TSH, LIPID #### Unless otherwise noted, all testing performed by [place] [address] CLIA: [id number] [employer]: Delfin Spangler M.D. Cholesterol mass conc 131 mg/dL Normal 100-199 [facility] Comment on above: Performed By: #### C TNI, TSH, LIPID #### Unless otherwise noted, all testing performed by [place] [address] CLIA: [id number] [employer]: Delfin Spangler M.D. Cholesterol.total/Chol esterol in HDL mass ratio 5.6 {ratio} High 3.2-5.0 [facility] Comment on above: Result Comment: Chris le Coronary Heart Disease Risk Factor (CHDRF): Average risk= 4.4 1/2 Average risk= 3.3 2 times Average risk= 7.1 Performed By: #### C TNI, TSH, LIPID #### Unless otherwise noted, all testing performed by [place] [address] CLIA: [id number] [employer]: Delfin Spangler M.D. Triglyceride mass conc 608 mg/dL High 30-150 [facility] Comment on above: Performed By: #### C TNI, TSH, LIPID #### Unless otherwise noted, all testing performed by [place] [address] CLIA: [id number] [employer]: Delfin Spangler M.D. Partial Thromboplastin Timeo n 08-31-2018 aPTT Coag time (Bld) 29 s Normal 23.0-34.0 [facility] Comment on above: Result Comment: Tami rosas therapeutic range for PTT is 68-104 sec. Performed By: #### C BCWOD, EDCTNI, CHEM8, PT, PTT, HBA1C #### Unless otherwise noted, all testing performed by [place] [address] CLIA: [id number] [employer]: Delfin Spangler M.D. Protimeon 08-31-2018 INR Coag RelTime (PPP) 0.98 {INR} Normal [facility] Comment on above: Result Comment: The [employer] recommended therapeutic range for Warfarin (Coumadin) therapy goals: PROPHYLAXIS/TREATMENT of: INR Venous Thrombosis, Pulmonary Embolism 2.0-3.0 Prevention of VTE (Orthopedic Surgery) 2.0-3.0 Atrial Fibrillation 2.0-3.0 Myocardial Infarction 2.0-3.0 Mechanical Prosthetic Heart Valves (Aortic position) 2.0-3.0 Mechanical Prosthetic Heart Valves (Mitral Position) 2.5-3.5 [employer] evidence-based clinical practice guidelines. CHEST. 2012 (9th ed) Performed By: #### C BCWOD, EDCTNI, CHEM8, PT, PTT, HBA1C #### Unless otherwise noted, all testing performed by [place] [address] CLIA: [id number] [employer]: Delfin Spangler M.D. Prothrombin time (PT) Coag time (PPP) 12.6 s Normal 11.8-14.3 [facility] Comment on above: Performed By: #### C BCWOD, EDCTNI, CHEM8, PT, PTT, HBA1C #### Unless otherwise noted, all testing performed by [place] [address] CLIA: [id number] [employer]: Delfin Spangler M.D. TSHon 08-31-2018 Thyrotropin Qn 0.94 uIU/mL Normal 0.270-4.20 0 [facility] Comment on above: Result Comment: Samp les from patients routinely receiving high dose biotin therapy (100-300 mg/day) may show falsely decreased results. Please correlate clinically. Please note reference range change as of 04/28/18. Performed By: #### C TNI, TSH, LIPID #### Unless otherwise noted, all testing performed by [place] [address] CLIA: [id number] [employer]: Delfin Spangler M.D. Thyrotropin Qn No Biomarker evidenc e of myocardial injury within the past 14 hours. Normal [facility] Comment on above: Performed By: #### C TNI, TSH, LIPID #### Unless otherwise noted, all testing performed by [place] [address] CLIA: [id number] [employer]: Delfin Spangler M.D. Glucose POCon 03-12-2018 Glucose [Mass/Vol] 108 mg/dL High 70-99 [facility] Comment on above: Performed By: #### [id number] #### ÁNGEL POC Subsection [address] [place] [address] Office Visit: Diabetes Follo w upon 04-21-2017 Documentation of current medications (procedure) Done Invalid Interpretation Code [facility] Work Phone: XR Hip Left 2-3 Views (Routi ne)on 04-01-2017 XR Hip Left 2-3 Views (Routine) 2 views left hip reveals no arthritis or lytic lesions Invalid Interpretation Code [facility] [place] XR Knee Left 4+ Views (Note in Comments)on 04-01-2017 XR Knee Left 4+ Views (Note in Comments) 4 views left knee reveals total knee replacement in excellent position without complications or loosening Invalid Interpretation Code [facility] [place] XR Lumbar Spine 2-3 Views (S tandard)on 04-01-2017 RDW-CA 2 views lumbar spine reveals hardware from spinal fusion at 3 4 and degenerative disc at 4 5 levels no compression fractures or lytic lesion seen Invalid Interpretation Code [facility] [place] Chart Maintenanceon 10-29-19 17 Alanine aminotransferase (ALT) 40 U/L Invalid Interpretation Code [facility] Work Phone: Aspartate aminotransferase (AST) 34 U/L Invalid Interpretation Code [facility] Work Phone: Cholesterol 129 mg/dL Invalid Interpretation Code [facility] Work Phone: Creatinine 1.0 mg/dL Invalid Interpretation Code [facility] Work Phone: eGFR (non-black) 54.7 mL/min/{1.73_m2} Invalid Interpretation Code [facility] Work Phone: Hemoglobin A1c/Hemoglobin.total mass fraction (Bld) 7.8 % Invalid Interpretation Code [facility] Work Phone: Triglyceride 569 mg/dL Invalid Interpretation Code [facility] Work Phone: Office Visit: [facility] 10-15-2016 Adolescent depression screening assessment Adolescent depression screening assessment Invalid Interpretation Code [facility] Work Phone: Adult depression screening assessment Adult depression screening assessment Invalid Interpretation Code [facility] Work Phone: Fall risk assessment No Invalid Interpretation Code [facility] Work Phone: Tobacco smoking status NHIS Never Invalid Interpretation Code [facility] Work Phone: Tobacco use CPHS Never smoker Invalid Interpretation Code [facility] Work Phone: Office Visit: [facility] 10-09-2015 Colonoscopy (procedure) Colonoscopy (procedure) Invalid Interpretation Code [facility] Work Phone: Office Visit: [facility] 04-06-2015 Breast Mammogram screening Normal Bilateral Invalid Interpretation Code [facility] Work Phone: Vital Signs Date Time Vital Sign Value Performing Clinician Facility 12-17-2024 11:31-0400 Body height 160 cm Jacquie Carrillo MD Work Phone: [facility] 12-17-2024 11:31-0400 Body mass index (BMI) [Ratio] 34.51 kg/m2 Jacquie Carrillo MD Work Phone: [facility] 12-17-2024 11:31-0400 Body weight 88.36 kg Jacquie Carrillo MD Work Phone: [facility] 12-17-2024 11:31-0400 Diastolic blood pressure 62 mm[Hg] Jacquie Carrillo MD Work Phone: [facility] 12-17-2024 11:31-0400 Heart rate 73 /min Jacquie Carrillo MD Work Phone: [facility] 12-17-2024 11:31-0400 SaO2% (BldA) [Mass fraction] 96 % Jacquie Carrillo MD Work Phone: [facility] 12-17-2024 11:31-0400 Systolic blood pressure 117 mm[Hg] Jacquie Carrillo MD Work Phone: [facility] 12-16-2024 12:30-0400 Body height 160.[address] Ramón Coulter MD Work Phone: [facility] 12-16-2024 12:30-0400 Body mass index (BMI) [Ratio] 33.8 kg/m2 Dr. Ramón Coulter MD Work Phone: [facility] 12-16-2024 12:30-0400 Body temperature 97.4 [degF] Dr. Ramón Coulter MD Work Phone: [facility] 12-16-2024 12:30-0400 Body weight 86.[address] Ramón Coulter MD Work Phone: [facility] 12-16-2024 12:30-0400 Diastolic blood pressure 60 mm[Hg] Dr. Ramón Coulter MD Work Phone: [facility] 12-16-2024 12:30-0400 Heart rate 76 /min Dr. Ramón Coulter MD Work Phone: [facility] 12-16-2024 12:30-0400 Respiratory rate 14 /min Dr. Ramón Coulter MD Work Phone: [facility] 12-16-2024 12:30-0400 SaO2% (BldA) [Mass fraction] 95 % Dr. Ramón Coulter MD Work Phone: [facility] 12-16-2024 12:30-0400 Systolic blood pressure 112 mm[Hg] Dr. Ramón Coulter MD Work Phone: [facility] 12-02-2024 14:33-0400 Body height 160.[address] Ramón Coulter MD Work Phone: [facility] 12-02-2024 14:33-0400 Body mass index (BMI) [Ratio] 33.8 kg/m2 Dr. Ramón Coulter MD Work Phone: [facility] 12-02-2024 14:33-0400 Body temperature 97.9 [degF] Dr. Ramón Coulter MD Work Phone: [facility] 12-02-2024 14:33-0400 Body weight 86.[address] Ramón Coulter MD Work Phone: [facility] 12-02-2024 14:33-0400 Diastolic blood pressure 58 mm[Hg] Dr. Ramón Coulter MD Work Phone: [facility] 12-02-2024 14:33-0400 Heart rate 76 /min Dr. Ramón Coulter MD Work Phone: [facility] 12-02-2024 14:33-0400 Respiratory rate 19 /min Dr. Ramón Coulter MD Work Phone: [facility] 12-02-2024 14:33-0400 SaO2% (BldA) [Mass fraction] 96 % Dr. Ramón Coulter MD Work Phone: [facility] 12-02-2024 14:33-0400 Systolic blood pressure 128 mm[Hg] Dr. Ramón Coulter MD Work Phone: [facility] 12-02-2024 13:07-0400 Body height 160.[address] Ramón Coulter MD Work Phone: [facility] 12-02-2024 13:07-0400 Body mass index (BMI) [Ratio] 34.2 kg/m2 Dr. Ramón Coulter MD Work Phone: [facility] 12-02-2024 13:07-0400 Body temperature 98.6 [degF] Dr. Ramón Coulter MD Work Phone: [facility] 12-02-2024 13:07-0400 Body weight 87.[address] Ramón Coulter MD Work Phone: [facility] 12-02-2024 13:07-0400 Diastolic blood pressure 80 mm[Hg] Dr. Ramón Coulter MD Work Phone: [facility] 12-02-2024 13:07-0400 Heart rate 76 /min Dr. Ramón Coulter MD Work Phone: [facility] 12-02-2024 13:07-0400 Respiratory rate 20 /min Dr. Ramón Coulter MD Work Phone: [facility] 12-02-2024 13:07-0400 SaO2% (BldA) [Mass fraction] 96 % Dr. Ramón Coulter MD Work Phone: [facility] 12-02-2024 13:07-0400 Systolic blood pressure 132 mm[Hg] Dr. Ramón Coulter MD Work Phone: [facility] 11-02-2024 11:15-0400 Body mass index (BMI) [Ratio] 33.5 kg/m2 Dr. Ramón Coulter MD Work Phone: [facility] 11-02-2024 11:15-0400 Body weight 85.[address] Ramón Coulter MD Work Phone: [facility] 11-02-2024 11:15-0400 Diastolic blood pressure 63 mm[Hg] Dr. Ramón Coulter MD Work Phone: [facility] 11-02-2024 11:15-0400 Heart rate 65 /min Dr. Ramón Coulter MD Work Phone: [facility] 11-02-2024 11:15-0400 SaO2% (BldA) [Mass fraction] 95 % Dr. Ramón Coulter MD Work Phone: [facility] 11-02-2024 11:15-0400 Systolic blood pressure 111 mm[Hg] Dr. Ramón Coulter MD Work Phone: [facility] 09-27-2024 13:13-0400 Body height 160.[address] Ramón Coulter MD Work Phone: [facility] 09-27-2024 13:13-0400 Body mass index (BMI) [Ratio] 33.1 kg/m2 Dr. Ramón Coulter MD Work Phone: [facility] 09-27-2024 13:13-0400 Body temperature 97.2 [degF] Dr. Ramón Coulter MD Work Phone: [facility] 09-27-2024 13:13-0400 Body weight 84.[address] Ramón Coulter MD Work Phone: [facility] 09-27-2024 13:13-0400 Diastolic blood pressure 68 mm[Hg] Dr. Ramón Coulter MD Work Phone: [facility] 09-27-2024 13:13-0400 Heart rate 61 /min Dr. Ramón Coulter MD Work Phone: [facility] 09-27-2024 13:13-0400 Respiratory rate 14 /min Dr. Ramón Coulter MD Work Phone: [facility] 09-27-2024 13:13-0400 SaO2% (BldA) [Mass fraction] 97 % Dr. Ramón Coulter MD Work Phone: [facility] 09-27-2024 13:13-0400 Systolic blood pressure 124 mm[Hg] Dr. Ramón Coulter MD Work Phone: [facility] 09-20-2024 13:31-0400 Body mass index (BMI) [Ratio] 32.9 kg/m2 Dr. Ramón Coulter MD Work Phone: [facility] 09-20-2024 13:31-0400 Body temperature 98.2 [degF] Dr. Ramón Coulter MD Work Phone: [facility] 09-20-2024 13:31-0400 Body weight 84.[address] Ramón Coulter MD Work Phone: [facility] 09-20-2024 13:31-0400 Diastolic blood pressure 66 mm[Hg] Dr. Ramón Coulter MD Work Phone: [facility] 09-20-2024 13:31-0400 Heart rate 69 /min Dr. Ramón Coulter MD Work Phone: [facility] 09-20-2024 13:31-0400 Respiratory rate 20 /min Dr. Ramón Coulter MD Work Phone: [facility] 09-20-2024 13:31-0400 SaO2% (BldA) [Mass fraction] 98 % Dr. Ramón Coulter MD Work Phone: [facility] 09-20-2024 13:31-0400 Systolic blood pressure 136 mm[Hg] Dr. aRmón Coulter MD Work Phone: [facility] 09-16-2024 11:17-0400 Body height 158.8 cm Mika Uribe MD Work Phone: [facility] 09-16-2024 11:17-0400 Body mass index (BMI) [Ratio] 34.02 kg/m2 Mika Uribe MD Work Phone: [facility] 09-16-2024 11:17-0400 Body weight 85.73 kg Mika Uribe MD Work Phone: [facility] 07-15-2024 12:54-0500 Body mass index (BMI) [Ratio] 33.1 kg/m2 Dr. Ramón Coulter MD Work Phone: [facility] 07-15-2024 12:54-0500 Body temperature 97.4 [degF] Dr. Ramón Coulter MD Work Phone: [facility] 07-15-2024 12:54-0500 Body weight 84.[address] Ramón Coulter MD Work Phone: [facility] 07-15-2024 12:54-0500 Diastolic blood pressure 70 mm[Hg] Dr. Ramón Coulter MD Work Phone: [facility] 07-15-2024 12:54-0500 Heart rate 69 /min Dr. Ramón Coulter MD Work Phone: [facility] 07-15-2024 12:54-0500 Respiratory rate 16 /min Dr. Ramón Coulter MD Work Phone: [facility] 07-15-2024 12:54-0500 SaO2% (BldA) [Mass fraction] 99 % Dr. Ramón Coulter MD Work Phone: [facility] 07-15-2024 12:54-0500 Systolic blood pressure 124 mm[Hg] Dr. Ramón Coulter MD Work Phone: [facility] 07-13-2024 11:37-0500 Body height 158.8 cm Mika Uribe MD Work Phone: [facility] [employer] 07-13-2024 11:37-0500 Body mass index (BMI) [Ratio] 34.02 kg/m2 Mika Uribe MD Work Phone: [facility] [employer] 07-13-2024 11:37-0500 Body weight 85.73 kg Mika Uribe MD Work Phone: [facility] [employer] 06-21-2024 08:51-0500 Diastolic blood pressure 58 mm[Hg] Ashly Noriega MD Work Phone: [employer] 06-21-2024 08:51-0500 Heart rate 72 /min Ashly Noriega MD Work Phone: [employer] 06-21-2024 08:51-0500 Systolic blood pressure 113 mm[Hg] Ashly Noriega MD Work Phone: [facility] [employer] 06-21-2024 05:47-0500 Body temperature 97.11 [degF] Ashly Noriega MD Work Phone: [employer] 06-21-2024 05:47-0500 Respiratory rate 16 /min Ashly Noriega MD Work Phone: [employer] 06-21-2024 05:47-0500 SaO2% (BldA) [Mass fraction] 97 % Ashly Noriega MD Work Phone: [employer] 06-17-2024 05:09-0500 Body height 157.5 cm Ashly Noriega MD Work Phone: [employer] 06-17-2024 05:09-0500 Body mass index (BMI) [Ratio] 34.79 kg/m2 Ashly Noriega MD Work Phone: [facility] [employer] 06-17-2024 05:09-0500 Body weight 86.27 kg Ashly Noriega MD Work Phone: [facility] 05-19-2024 12:52-0500 Body height 160 cm Dayana Moreau [employer] Work Phone: [facility] 05-19-2024 12:52-0500 Body mass index (BMI) [Ratio] 34.01 kg/m2 Dayana Moreau [employer] Work Phone: [facility] 05-19-2024 12:52-0500 Body weight 87.09 kg Dayana Moreau [employer] Work Phone: [facility] 05-19-2024 12:52-0500 Diastolic blood pressure 65 mm[Hg] Dayana Moreau [employer] Work Phone: [facility] 05-19-2024 12:52-0500 Heart rate 62 /min Dayana Moreau [employer] Work Phone: [facility] 05-19-2024 12:52-0500 SaO2% (BldA) [Mass fraction] 95 % Dayana Moreau [employer] Work Phone: [facility] 05-19-2024 12:52-0500 Systolic blood pressure 107 mm[Hg] Dayana Moreau [employer] Work Phone: [facility] 05-10-2024 10:39-0500 Body height 160 cm Jacquie Fields MD Work Phone: [facility] 04-12-2024 12:42-0400 Body temperature 97.59 [degF] Kelsey Balderas OT [facility] 04-12-2024 12:42-0400 Diastolic blood pressure 65 mm[Hg] Kelsey Balderas OT [facility] 04-12-2024 12:42-0400 Heart rate 80 /min Kelsey Balderas OT [facility] 04-12-2024 12:42-0400 Respiratory rate 12 /min Kelsey Balderas OT [facility] 04-12-2024 12:42-0400 SaO2% (BldA) [Mass fraction] 96 % Kelsey Balderas OT [facility] 04-12-2024 12:42-0400 Systolic blood pressure 131 mm[Hg] Kelsey Balderas OT [facility] 10-13-2023 13:04-0400 Body height 165.[address] Ryan Gomez Work Phone: [facility] 10-13-2023 13:04-0400 Body mass index (BMI) [Ratio] 34.4 kg/m2 Dr. Ryan Gomez Work Phone: [facility] 10-13-2023 13:04-0400 Body temperature 97.9 [degF] Dr. Ryan Gomez Work Phone: [facility] 10-13-2023 13:04-0400 Body weight 93.[address] Ryan Gomez Work Phone: [facility] 10-13-2023 13:04-0400 Diastolic blood pressure 70 mm[Hg] Dr. Ryan Gomez Work Phone: [facility] 10-13-2023 13:04-0400 Heart rate 74 /min Dr. Ryan Gomez Work Phone: [facility] 10-13-2023 13:04-0400 Respiratory rate 14 /min Dr. Ryan Gomez Work Phone: [facility] 10-13-2023 13:04-0400 SaO2% (BldA) [Mass fraction] 98 % Dr. Ryan Gomez Work Phone: [facility] 10-13-2023 13:04-0400 Systolic blood pressure 130 mm[Hg] Dr. Ryan Gomez Work Phone: [facility] 09-01-2023 13:42-0500 Body mass index (BMI) [Ratio] 33.9 kg/m2 Dr. Ryan Gomez Work Phone: [facility] 09-01-2023 13:42-0500 Body temperature 97.3 [degF] Dr. Ryan Gomez Work Phone: [facility] 09-01-2023 13:42-0500 Body weight 92.[address] Ryan Gomez Work Phone: [facility] 09-01-2023 13:42-0500 Diastolic blood pressure 72 mm[Hg] Dr. Ryan Gomez Work Phone: [facility] 09-01-2023 13:42-0500 Heart rate 60 /min Dr. Ryan Gomez Work Phone: [facility] 09-01-2023 13:42-0500 Respiratory rate 16 /min Dr. Ryan Gomez Work Phone: [facility] 09-01-2023 13:42-0500 SaO2% (BldA) [Mass fraction] 95 % Dr. yRan Gomez Work Phone: [facility] 09-01-2023 13:42-0500 Systolic blood pressure 124 mm[Hg] Dr. Ryan Gomez Work Phone: [facility] 07-17-2023 09:54-0500 Body mass index (BMI) [Ratio] 34.2 kg/m2 Dr. Ryan Gomez Work Phone: [facility] 07-17-2023 09:54-0500 Body temperature 98 [degF] Dr. Ryan Gomez Work Phone: [facility] 07-17-2023 09:54-0500 Body weight 93.[address] Ryan Gomez Work Phone: [facility] 07-17-2023 09:54-0500 Diastolic blood pressure 67 mm[Hg] Dr. Ryan Gomez Work Phone: [facility] 07-17-2023 09:54-0500 Heart rate 70 /min Dr. Ryan Gomez Work Phone: [facility] 07-17-2023 09:54-0500 Respiratory rate 16 /min Dr. Ryan Gomez Work Phone: [facility] 07-17-2023 09:54-0500 SaO2% (BldA) [Mass fraction] 95 % Dr. Ryan Gomez Work Phone: [facility] 07-17-2023 09:54-0500 Systolic blood pressure 114 mm[Hg] Dr. Ryan Gomez Work Phone: [facility] 03-14-2023 11:32-0400 Body mass index (BMI) [Ratio] 35.62 kg/m2 Gonzalez Saunders MD Work Phone: [facility] 03-14-2023 11:32-0400 Body weight 91.17 kg Gonzalez Saunders MD Work Phone: [facility] 03-14-2023 11:32-0400 Diastolic blood pressure 72 mm[Hg] Gonzalez Saunders MD Work Phone: [facility] 03-14-2023 11:32-0400 Heart rate 70 /min Gonzalez Saunders MD Work Phone: [facility] 03-14-2023 11:32-0400 SaO2% (BldA) [Mass fraction] 93 % Gonzalez Saunders MD Work Phone: [facility] 03-14-2023 11:32-0400 Systolic blood pressure 128 mm[Hg] Gonzalez Saunders MD Work Phone: [facility] 01-23-2023 10:46-0400 Body height 165.[address] Ryan Gomez Work Phone: [facility] 01-23-2023 10:46-0400 Body mass index (BMI) [Ratio] 34.8 kg/m2 Dr. Ryan Gomez Work Phone: [facility] 01-23-2023 10:46-0400 Body temperature 98.4 [degF] Dr. Ryan Gomez Work Phone: [facility] 01-23-2023 10:46-0400 Body weight 94.[address] Ryan Gomez Work Phone: [facility] 01-23-2023 10:46-0400 Diastolic blood pressure 68 mm[Hg] Dr. Ryan Gomez Work Phone: [facility] 01-23-2023 10:46-0400 Heart rate 74 /min Dr. Ryan Gomez Work Phone: [facility] 01-23-2023 10:46-0400 Respiratory rate 16 /min Dr. Ryan Gomez Work Phone: [facility] 01-23-2023 10:46-0400 SaO2% (BldA) [Mass fraction] 95 % Dr. Ryan Gomez Work Phone: [facility] 01-23-2023 10:46-0400 Systolic blood pressure 120 mm[Hg] Dr. Ryan Gomez Work Phone: [facility] 04-05-2022 11:11-0400 Body height 160 cm Gonzalez Saunders MD Work Phone: [facility] 04-05-2022 11:11-0400 Body mass index (BMI) [Ratio] 36.49 kg/m2 Gonzalez Saunders MD Work Phone: [facility] 04-05-2022 11:11-0400 Body weight 93.4 kg Gonzalez Saunders MD Work Phone: [facility] 04-05-2022 11:11-0400 Diastolic blood pressure 58 mm[Hg] Gonzalez Saunders MD Work Phone: [facility] 04-05-2022 11:11-0400 Heart rate 57 /min Gonzalez Saunders MD Work Phone: [facility] 04-05-2022 11:11-0400 SaO2% (BldA) [Mass fraction] 96 % Gonzalez Saunders MD Work Phone: [facility] 04-05-2022 11:11-0400 Systolic blood pressure 119 mm[Hg] Gonzalez Saunders MD Work Phone: [facility] 08-20-2021 16:48-0500 Body height 160 cm Ryan Gomez Other Phone: [facility] 08-20-2021 16:48-0500 Body temperature 98.24 [degF] Ryan Gomez Other Phone: [facility] 08-20-2021 16:48-0500 Diastolic blood pressure 70 mm[Hg] Ryan Gomez Other Phone: [facility] 08-20-2021 16:48-0500 Heart rate 62 /min Ryan Gomez Other Phone: [facility] 08-20-2021 16:48-0500 Respiratory rate 16 /min Ryan Gomez Other Phone: [facility] 08-20-2021 16:48-0500 SaO2% (BldA) [Mass fraction] 96 % Ryan Gomez Other Phone: [facility] 08-20-2021 16:48-0500 Systolic blood pressure 147 mm[Hg] Ryan Gomez Other Phone: [facility] 05-28-2021 16:15-0500 Body temperature 100.09 [degF] Chair Spec [facility] 05-28-2021 16:15-0500 Diastolic blood pressure 51 mm[Hg] Chair Spec Inf [facility] 05-28-2021 16:15-0500 Heart rate 76 /min Chair Spec Inf [facility] 05-28-2021 16:15-0500 SaO2% (BldA) [Mass fraction] 96 % Chair Spec [facility] 05-28-2021 16:15-0500 Systolic blood pressure 121 mm[Hg] Chair Spec Inf [facility] 03-09-2021 13:27-0400 Body height 160 cm Gonzalez Saunders MD Work Phone: [facility] 03-09-2021 13:27-0400 Body mass index (BMI) [Ratio] 37.29 kg/m2 Gonzalez Saunders MD Work Phone: [facility] 03-09-2021 13:27-0400 Body weight 95.48 kg Gonzalez Saunders MD Work Phone: [facility] 03-09-2021 13:27-0400 Diastolic blood pressure 63 mm[Hg] Gonzalez Saunders MD Work Phone: [facility] 03-09-2021 13:27-0400 Heart rate 60 /min Gonzalez Saunders MD Work Phone: [facility] 03-09-2021 13:27-0400 SaO2% (BldA) [Mass fraction] 96 % Gonzaelz Saunders MD Work Phone: [facility] 03-09-2021 13:27-0400 Systolic blood pressure 131 mm[Hg] Gonzalez Saunders MD Work Phone: [facility] 07-26-2020 15:31-0500 BMI (Body Mass Index) 35.43 kg/m2 Gonzalez Saunders [facility] 07-26-2020 15:31-0500 Body weight 90.72 kg Gonzalez Saunders [facility] 07-26-2020 15:31-0500 Height 160 cm Gonzalez Saunders [facility] 06-16-2020 09:27-0500 BMI (Body Mass Index) 36.31 kg/m2 Gonzalez Saunders [facility] 06-16-2020 09:27-0500 Body weight 92.99 kg Gonzalez Saunders [facility] 06-16-2020 09:27-0500 BP Diastolic 70 mm[Hg] Gonzalez Saunders [facility] 06-16-2020 09:27-0500 BP Systolic 134 mm[Hg] Gonzalez Saunders [facility] 06-16-2020 09:27-0500 Height 160 cm Gonzalez Saunders [facility] 06-16-2020 09:27-0500 Pulse (Heart Rate) 57 /min Gonzalez Saunders [facility] 06-16-2020 09:27-0500 Pulse Oximetry 97 % Gonzalez Saunders [facility] 04-03-2020 09:48-0400 BMI (Body Mass Index) 35.43 kg/m2 Reinier [facility] 04-03-2020 09:48-0400 Body weight 90.72 kg Reinier [facility] 04-03-2020 09:48-0400 BP Diastolic 70 mm[Hg] Reinier [facility] 04-03-2020 09:48-0400 BP Systolic 150 mm[Hg] Reinier [facility] 04-03-2020 09:48-0400 Height 160 cm [facility] 04-03-2020 09:48-0400 Pulse (Heart Rate) 65 /min Reinier [facility] 01-03-2020 08:34-0400 BMI (Body Mass Index) 35.59 kg/m2 Frances Nascimento [facility] 01-03-2020 08:34-0400 Body weight 91.13 kg Frances Nascimento [facility] 01-03-2020 08:34-0400 BP Diastolic 71 mm[Hg] Frances Nascimento [facility] 01-03-2020 08:34-0400 BP Systolic 126 mm[Hg] Frances Nascimento [facility] 01-03-2020 08:34-0400 Height 160 cm Frances Nascimento [facility] 01-03-2020 08:34-0400 Pulse (Heart Rate) 71 /min Franceslucy Nascimento [facility] 09-02-2019 13:31-0500 BMI (Body Mass Index) 35.96 kg/m2 [facility] 09-02-2019 13:31-0500 Body weight 92.08 kg [facility] 09-02-2019 13:31-0500 BP Diastolic 67 mm[Hg] [facility] 09-02-2019 13:31-0500 BP Systolic 144 mm[Hg] [facility] 09-02-2019 13:31-0500 Height 160 cm [facility] 09-02-2019 13:31-0500 Pulse (Heart Rate) 67 /min [facility] 08-30-2019 09:50-0500 BMI (Body Mass Index) 36.1 kg/m2 Genaro Aldo [facility] 08-30-2019 09:50-0500 Body Temperature 98.01 [degF] Genaro [facility] 08-30-2019 09:50-0500 Body weight 92.44 kg [facility] 08-30-2019 09:50-0500 BP Diastolic 70 mm[Hg] Genaro Aldo [facility] 08-30-2019 09:50-0500 BP Systolic 146 mm[Hg] [facility] 08-30-2019 09:50-0500 Height 160 cm [facility] 08-30-2019 09:50-0500 Pulse (Heart Rate) 63 /min [facility] 08-30-2019 09:50-0500 Pulse Oximetry 97 % [facility] 08-23-2019 11:06-0500 BMI (Body Mass Index) 35.73 kg/m2 [facility] 08-23-2019 11:06-0500 Body Temperature 98.29 [degF] [facility] 08-23-2019 11:06-0500 Body weight 91.49 kg [facility] 08-23-2019 11:06-0500 BP Diastolic 70 mm[Hg] [facility] 08-23-2019 11:06-0500 BP Systolic 132 mm[Hg] [facility] 08-23-2019 11:06-0500 Height 160 cm [facility] 08-23-2019 11:06-0500 Pulse (Heart Rate) 67 /min [facility] 08-23-2019 11:06-0500 Pulse Oximetry 96 % [facility] 08-03-2019 11:32-0500 BMI (Body Mass Index) 35.53 kg/m2 [facility] 08-03-2019 11:32-0500 Body weight 90.99 kg [facility] 08-03-2019 11:32-0500 BP Diastolic 73 mm[Hg] [facility] 08-03-2019 11:32-0500 BP Systolic 120 mm[Hg] [facility] 08-03-2019 11:32-0500 Height 160 cm [facility] 08-03-2019 11:32-0500 Pulse (Heart Rate) 67 /min [facility] 08-03-2019 11:32-0500 Pulse Oximetry 96 % [facility] 03-18-2019 11:18-0400 BMI (Body Mass Index) 35.96 kg/m2 Denisse Richardson [facility] 03-18-2019 11:18-0400 Body weight 92.08 kg Denisse Richardson [facility] 03-18-2019 11:18-0400 BP Diastolic 73 mm[Hg] Denisse Richardson [facility] 03-18-2019 11:18-0400 BP Systolic 118 mm[Hg] Denises Richardson [facility] 03-18-2019 11:18-0400 Pulse (Heart Rate) 67 /min Denisse Richardson [facility] 01-06-2019 10:04-0400 BMI (Body Mass Index) 35.96 kg/m2 Darcy Sharpe [facility] 01-06-2019 10:04-0400 Body weight 92.08 kg Darcy Sharpe [facility] 01-06-2019 10:04-0400 BP Diastolic 66 mm[Hg] Darcy Sharpe [facility] 01-06-2019 10:04-0400 BP Systolic 113 mm[Hg] Darcy Sharpe [facility] 01-06-2019 10:04-0400 Height 160 cm Darcy Sharpe [facility] 01-06-2019 10:04-0400 Pulse (Heart Rate) 64 /min Darcy Sharpe [facility] 01-06-2019 10:04-0400 Pulse Oximetry 94 % Darcy Sharpe [facility] 12-15-2018 10:58-0400 BP Diastolic 76 mm[Hg] Denisse Richardson [facility] 12-15-2018 10:58-0400 BP Systolic 136 mm[Hg] Denisse Richardson [facility] 12-15-2018 10:58-0400 Pulse (Heart Rate) 68 /min Denisse Richardson [facility] 12-15-2018 10:50-0400 BMI (Body Mass Index) 37.34 kg/m2 Denisse Richardson [facility] 12-15-2018 10:50-0400 Height 160 cm Denisse Richardson [facility] 12-15-2018 10:50-0400 Weight 95.62 kg Denisse Richardson [facility] 10-06-2018 11:03-0400 BP Diastolic 52 mm[Hg] Ryan Gomez [facility] 10-06-2018 11:03-0400 BP Systolic 122 mm[Hg] Ryan Gomez [facility] 10-06-2018 11:03-0400 Height 160 cm Ryan Gomez [facility] 10-06-2018 11:03-0400 Pulse (Heart Rate) 65 /min Ryan Gomez [facility] 08-10-2018 14:22-0500 BMI (Body Mass Index) 37.02 kg/m2 Gonzalez Saunders [facility] 08-10-2018 14:22-0500 Body weight 94.8 kg Gonzalez Saunders [facility] 08-10-2018 14:22-0500 BP Diastolic 71 mm[Hg] Gonzalez Saunders [facility] 08-10-2018 14:22-0500 BP Systolic 129 mm[Hg] Gonzalez Saunders [facility] 08-10-2018 14:22-0500 Height 160 cm Gonzalez Saunders [facility] 08-10-2018 14:22-0500 Pulse (Heart Rate) 64 /min Gonzalez Saunders [facility] 08-10-2018 14:22-0500 Pulse Oximetry 96 % Gonzalez Saunders [facility] 10-10-2017 10:23-0400 BMI (Body Mass Index) 35.94 kg/m2 Gonzalez Saunders [facility] 10-10-2017 10:23-0400 BP Diastolic 67 mm[Hg] Gonzalez Saunders [facility] 10-10-2017 10:23-0400 BP Systolic 113 mm[Hg] Gonzalez Saunders [facility] 10-10-2017 10:23-0400 Height 160 cm Gonzalez Saunders [facility] 10-10-2017 10:23-0400 Pulse (Heart Rate) 70 /min Gonzalez Saunders [facility] 10-10-2017 10:23-0400 Pulse Oximetry 98 % Gonzalez Saunders [facility] 10-10-2017 10:23-0400 Weight 92.03 kg Gonzalez Saunders [facility] 04-21-2017 08:36-0400 BMI (Body Mass Index) 35.32 kg/m2 Gerri Mackenzie [facility] Work Phone: 04-21-2017 08:36-0400 BP Diastolic 68 mm[Hg] Gerri Mann AUGUSTA [facility] Work Phone: 04-21-2017 08:36-0400 BP Systolic 120 mm[Hg] Gerri Mann AUG[facility]A [facility] Work Phone: 04-21-2017 08:36-0400 Height 160.02 cm Gerri Mann [facility]A [facility] Work Phone: 04-21-2017 08:36-0400 Pulse (Heart Rate) 64 /min Gerri Nievesnatalie DERAS [facility] Work Phone: 04-21-2017 08:36-0400 Respiratory Rate 20 /min Gerri Nievesnatalie DERAS [facility] Work Phone: 04-21-2017 08:36-0400 Weight 90.45 kg Gerri Shook DEPARTMENT SECRETARY [facility] Work Phone: 04-01-2017 13:02-0400 BMI (Body Mass Index) 34.54 kg/m2 Demond William [facility] Work Phone: 04-01-2017 13:02-0400 Height 160 cm Demond William [facility] Work Phone: 04-01-2017 13:02-0400 Weight 88.45 kg Demond William [facility] Work Phone: 01-21-2017 09:07-0400 Body Temperature 97.2 [degF] Gerri Shook DEPARTMENT SECRETARY [facility] Work Phone: 10-15-2016 09:34-0400 Body Temperature 97.7 [degF] Gerri Shook DEPARTMENT SECRETARY [facility] Work Phone: 10-15-2016 09:34-0400 Height 160.02 cm Gerri Nievesnatalie DEPARTMENT SECRETARY [facility] Work Phone: 10-15-2016 09:34-0400 Weight 90.08 kg Gerri Shook DEPARTMENT SECRETARY [facility] Work Phone: Encounters Encounter Date Encounter Type Care Provider Facility Start: 12-29-[address] 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 Ramón Coulter MD Work Phone: [facility] Work Phone: Start: 12-10-2024 End: 12-10-2024 Patient encounter procedure Bharat TALLEY -[facility] Work Phone: Start: 12-10-2024 End: 12-10-[address] Ramón Coulter MD Work Phone: [facility] Work Phone: Start: 12-08-2024 End: 12-08-[address] Ramón Coulter MD Work Phone: [facility] Work Phone: Start: 12-08-2024 End: 12-08-[address] Leonie Loja MD -Laboratory Work Phone: Start: 12-08-2024 End: 12-08-2024 ambulatory Leonie Loja Facility:[facility] Start: 12-06-2024 End: 12-06-2024 Emergency department patient visit RAMÓNLEYDI LOJA [facility] Start: 12-02-2024 End: 12-02-[address] Ramón Coulter MD Work Phone: [facility] Work Phone: Start: 12-02-2024 End: 12-02-2024 Patient encounter procedure Bharat TALLEY -Laboratory Specimen Work Phone: Start: 12-02-2024 End: 12-02-2024 Patient encounter procedure Bharat TALLEY -[facility] Work Phone: Start: 12-02-2024 End: 12-02-[address] aRmón Coulter MD Work Phone: [facility] Work Phone: Start: 12-02-2024 End: 12-02-2024 ambulatory Bharat TALLEY Facility:[facility] Start: 11-08-2024 End: 11-08-[address] Chris Martel MD -[facility] Work Phone: Start: 11-08-2024 End: 11-08-2024 ambulatory Chris Martel Facility:[facility] Start: 11-02-2024 End: 11-02-[address] Yariel Florez MD -[facility] Work Phone: Start: 11-02-2024 End: 11-02-2024 ambulatory Ramón Coulter Facility:[facility] Start: 10-25-2024 End: 10-25-[address] Ramón Coulter MD -[facility] Work Phone: Start: 10-25-2024 End: 10-25-2024 ambulatory Ramón Coulter Facility:[facility] Start: 10-20-2024 End: 10-20-[address] Ramón Coulter MD Work Phone: [facility] Work Phone: Start: 10-20-2024 End: 10-20-[address] Chris Martel MD -Cat Scan, [facility] Work Phone: Start: 10-20-2024 End: 10-20-2024 ambulatory Ramón Coulter Facility:[facility] Start: 10-13-2024 End: 10-13-[address] Ramón Coulter MD Work Phone: [facility] Work Phone: Start: 10-13-2024 End: 10-13-[address] Ramón Coulter MD -Laboratory, [place] Start: 10-13-2024 End: 10-13-[address] Ramón Coulter MD -[facility] Work Phone: Start: 10-13-2024 End: 10-13-2024 ambulatory Ramón Coulter Facility:[facility] Start: 10-13-2024 End: 10-13-2024 ambulatory Ramón Kellylay Facility:[facility] Start: 09-27-2024 End: 09-27-[address] Chris Martel MD -[facility] Work Phone: Start: 09-27-2024 End: 09-27-2024 ambulatory Chris Martel Facility:[facility] Start: 09-20-2024 End: 09-20-[address] Ramón Coulter MD -[facility] Work Phone: Start: 09-20-2024 End: 09-20-2024 ambulatory Ramón Coulter Facility:[facility] Start: 09-16-2024 End: 09-16-2024 Office outpatient visit 15 minutes Mika Uribe MD Work Phone: [facility] Comment on above: Closed fracture of d istal end of right femur, unspecified fracture morphology, initial encounter (HCC) (Primary Dx); Right arm pain; Ulnar neuritis, right Start: 09-16-2024 End: 09-16-2024 ambulatory MIKA [facility] Start: 09-14-2024 End: 09-14-2024 Orders Only Mika Uribe MD Work Phone: [facility] [place] Comment on above: Closed fracture of d istal end of right femur, unspecified fracture morphology, initial encounter (HCC) (Primary Dx) Start: 07-15-2024 End: 07-15-[address] Ramón Coulter MD -Laboratory, [place] Start: 07-15-2024 End: 07-15-[address] Ramón Coulter MD -[facility] Work Phone: Start: 07-15-2024 End: 07-15-2024 ambulatory Ramón Coulter Facility:[facility] Start: 07-15-2024 End: 07-15-2024 ambulatory Ramón Coulter Facility:[facility] Start: 07-13-2024 End: 07-13-2024 Postop follow up visit related to original px Mika Uribe MD Work Phone: [facility] [place] [facility] Comment on above: Closed fracture of d istal end of right femur, unspecified fracture morphology, initial encounter (HCC) (Primary Dx) Start: 07-13-2024 End: 07-13-2024 ambulatory MISSY [facility] Start: 07-12-2024 End: 07-12-2024 Orders Only Mika Uribe MD Work Phone: [facility] [place] [facility] Comment on above: Closed fracture of d istal end of right femur, unspecified fracture morphology, initial encounter (HCC) (Primary Dx) Start: 06-24-2024 End: 06-29-2024 Telephone encounter Mika Uribe MD Work Phone: [facility] [place] Comment on above: Care Coordination Start: 06-16-2024 End: 06-21-2024 Evaluation and management of inpatient Ashly Noriega MD Work Phone: [facility] Comment on above: Closed fracture of d istal end of right femur, unspecified fracture morphology, initial encounter (HCC) (Primary Dx); Osteoporosis, unspecified osteoporosis type, unspecified pathological fracture presence Start: 06-16-2024 End: 06-16-2024 Emergency department patient visit Roosevelt Lee Facility:[facility] Start: 06-16-2024 End: 06-16-[address] [facility] Facility:[facility] Start: 06-11-2024 End: 06-11-2024 Orders Only Thania Ball LPN [facility] Comment on above: Pain (Primary Dx) Start: 06-08-2024 End: 06-08-2024 Office outpatient visit 15 minutes Jacquie Fields MD Work Phone: [facility] Comment on above: Humeral head fractur e, right, closed, initial encounter (Primary Dx) Start: 06-08-2024 End: 06-08-2024 Refill Jacquie Fields MD Work Phone: [facility] Comment on above: Humeral head fractur e, right, closed, initial encounter (Primary Dx) Start: 06-07-2024 End: 06-08-2024 Orders Only Jacquie Fields MD Work Phone: [facility] Comment on above: Humeral head fractur e, right, closed, initial encounter (Primary Dx) Start: 05-24-2024 End: 05-24-2024 ambulatory Mernawestley Mccoyji Facility:[facility] Start: 05-19-2024 End: 05-19-2024 Office outpatient visit 25 minutes Dayana Ailyn Prieto [facility] Work Phone: [facility] Comment on above: Primary hypertension (Primary Dx); Hyperlipidemia LDL goal <70; Coronary artery disease involving lower [place] coronary artery of [place] heart without angina pectoris; Atypical chest pain Start: 05-19-2024 End: 05-19-2024 ambulatory DAYANA AILYN PRIETO [facility] Start: 05-13-2024 End: 05-13-2024 ambulatory Yariel Florez Facility:[facility] Start: 05-13-2024 End: 05-13-2024 ambulatory Joel Silva Facility:[facility] Start: 05-10-2024 End: 05-10-2024 Postop follow up visit related to original px Jacquie Fields MD Work Phone: [facility] Comment on above: Humeral head fractur e, right, closed, initial encounter (Primary Dx) Start: 05-10-2024 End: 05-10-2024 ambulatory RAMÓN PURVI [facility] Start: 05-06-2024 End: 05-06-2024 Orders Only Jacquie Fields MD Work Phone: [facility] Comment on above: Pain (Primary Dx) Start: 04-14-2024 End: 04-14-[address] [facility] Facility:[facility] – [place] Start: 04-14-2024 End: 04-14-2024 ambulatory Bharat TALLEY Facility:[facility] Start: 04-12-2024 End: 04-12-2024 Home visit Kelsey Balderas OT [facility] Comment on above: OT OASIS DISCHARGE Start: 04-06-2024 End: 04-06-2024 ambulatory RAMÓN PURVI PAKO [facility] Start: 04-05-2024 End: 04-05-2024 ambulatory Joel Silva Facility:[facility] Start: 04-01-2024 ambulatory JACQUIE FIELDS [facility] Start: 03-29-2024 End: 03-29-2024 Home visit Sofya FLOYD [facility] Comment on above: CASE COMMUNICATION Start: 03-28-2024 End: 03-28-2024 Home visit Sofya FLOYD [facility] Comment on above: CASE COMMUNICATION Start: 03-28-2024 End: 03-28-2024 Emergency department patient visit RAMÓNLEYDI LOJA PAKO [facility] Start: 03-26-2024 End: 03-26-2024 Coordination of care plan Gm Howell [facility] Start: 03-26-2024 End: 03-26-2024 Documentation procedure Gm Howell [facility] Coord[facility] Start: 03-26-2024 End: 04-12-2024 [facility] Start: 03-25-2024 End: 03-25-2024 Emergency department patient visit RYAN [facility] Start: 03-24-2024 End: 03-25-2024 ambulatory PRICE ALY [facility] Start: 03-12-2024 End: 03-12-2024 ambulatory Bharat TALLEY Facility:[facility] Start: 02-20-2024 End: 02-20-2024 ambulatory Ramón Coulter Facility:[facility] Start: 01-28-2024 End: 01-28-2024 Emergency department patient visit SEEMA VILLAR [facility] Start: 01-12-2024 End: 01-12-2024 ambulatory Ramón [place] Facility:[facility] Start: 01-09-2024 End: 01-09-2024 Emergency department patient visit KALIE MARLOW [facility] Start: 01-01-2024 End: 01-01-2024 ambulatory Yariel Florez Facility:[facility] Start: 12-25-2023 End: 12-25-2023 ambulatory CARMEN LLANES II Facility:[facility] Start: 12-25-2023 End: 12-25-2023 Patient encounter procedure Carmen Llanes OD Work Phone: Optometry Comment on above: Type 2 diabetes delbert itus without retinopathy (HCC) (Primary Dx); Allergic conjunctivitis, bilateral; Dry eye syndrome of both eyes; Amblyopia of left eye; Pseudophakia of both eyes; Regular astigmatism of right eye Start: 10-20-2023 End: 10-20-[address] Ryan Gomez Work Phone: [facility] Work Phone: Start: 10-20-2023 End: 10-20-[address] [facility] Start: 10-16-2023 End: 10-16-[address] Ryan Gomez Work Phone: [facility] Work Phone: Start: 10-16-2023 End: 10-16-[address] Ryan Gomez Work Phone: [facility] [facility], [facility] Work Phone: Start: 10-13-2023 End: 10-13-[address] Ryan Gomez Work Phone: [facility] Work Phone: Start: 10-13-2023 End: 10-13-[address] Ryan Gomez Work Phone: [facility] [place] Start: 10-13-2023 End: 10-13-[address] Ryan Gomez Work Phone: [facility] Work Phone: Start: 09-01-2023 End: 09-01-[address] Ryan Gomez Work Phone: [facility] Medicine Work Phone: Start: 07-17-2023 End: 07-17-[address] 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 (Primary Dx) Start: 03-14-2023 End: 03-14-2023 Office outpatient visit 25 minutes Gonzalez Saunders MD Work Phone: [facility] Comment on above: Coronary artery dise ase involving lower sioux coronary artery of lower sioux heart, unspecified whether angina present (Primary Dx); Primary hypertension; Mixed hyperlipidemia; Type 2 diabetes mellitus with other circulatory complication, with long-term current use of insulin (HCC); Hypothyroidism, unspecified type; Stage 3 chronic kidney disease, unspecified whether stage 3a or 3b CKD (HCC) Start: 02-24-2023 End: 02-24-[address] Ryan Gomez Work Phone: [facility] Work Phone: Start: 02-24-2023 End: 02-24-[address] Ryan Gomez Work Phone: [facility] Work Phone: Start: 02-11-2023 Refill Gonzalez Saunders MD Work Phone: [facility] Comment on above: Medication Refill Start: 01-23-2023 End: 01-23-[address] Ryan Gomez Work Phone: [facility] Work Phone: Start: 12-18-2022 End: 12-18-2022 Patient encounter procedure Carmen Llanes OD Work Phone: Optometry Comment on above: Type 2 diabetes delbert itus without retinopathy (HCC) (Primary Dx); Allergic conjunctivitis, bilateral; Dry eye syndrome of both eyes; Amblyopia of left eye; Pseudophakia of both eyes; Regular astigmatism of right eye Start: 11-04-2022 Refill Taylor Hicks RN [facility] Comment on above: Medication Refill Start: 10-28-2022 Refill Rima Hall MA [facility] Comment on above: Medication Refill Start: 10-18-2022 Refill Gonzalez Saunders MD Work Phone: [facility] Comment on above: Medication Refill Start: 09-18-[address] Ryan Gomez Facility:[id number] Start: 09-13-2022 Refill Gonzalez Saunders MD Work Phone: [facility] Comment on above: Medication Refill Start: 07-02-2022 Refill Gonzalez Saunders MD Work Phone: [facility] Comment on above: Medication Refill Start: 05-27-2022 Refill Rima Hall MA [facility] Comment on above: Medication Refill Start: 04-05-2022 End: 04-05-2022 Office outpatient visit 25 minutes Gonzalez Saunders MD Work Phone: [facility] Comment on above: Near syncope (Primar y Dx); Coronary artery disease involving lower sioux coronary artery of lower sioux heart, unspecified whether angina present Start: 03-06-2022 Refill Gonzalez Saunders MD Work Phone: [facility] Comment on above: Medication Refill Start: 02-03-2022 Refill Gonzalez Saunders MD Work Phone: [facility] Comment on above: Medication Refill Start: 01-13-2022 Refill Gonzalez Saunders MD Work Phone: [facility] Comment on above: Medication Refill Start: 12-26-[address] Ryan Gomez Facility:[id number] Start: 12-11-2021 End: 12-11-2021 Patient encounter procedure Carmen Llanes OD Work Phone: Optometry Comment on above: Type 2 diabetes delbert itus without retinopathy (HCC) (Primary Dx); Dry eye syndrome of both eyes; Pseudophakia of both eyes; Regular astigmatism of both eyes; Amblyopia of left eye Start: 11-19-2021 Refill Taylor Hicks RN [facility] Comment on above: Medication Refill Start: 11-17-2021 Refill Gonzalez Saunders MD Work Phone: [facility] Comment on above: Medication Refill Start: 09-07-2021 Refill Taylor Hicks RN [facility] Comment on above: Medication Refill Start: 09-06-2021 Refill Rima Hall MA [facility] Comment on above: Medication Refill Start: 08-20-2021 End: 08-20-2021 Emergency department patient visit Tracie Lady Eugene [facility] Start: 05-28-2021 End: 05-28-2021 ambulatory Ryan Gomez MD Work Phone: [facility] Comment on above: COVID-19 (Primary Dx ) Start: 05-27-2021 Evaluation and manag ement of inpatient Crystal Barajas RPh,PharmD [facility] Comment on above: COVID-19 Start: 03-16-2021 End: 03-16-2021 ambulatory BARBARA DENIS [facility] Start: 03-09-2021 End: 03-09-2021 Office outpatient visit 25 minutes Gonzalez Saunders MD Work Phone: [facility] Comment on above: SOB (shortness of br eath) on exertion (Primary Dx); Coronary artery disease involving lower sioux coronary artery of lower sioux heart, unspecified whether angina present; Pre-procedure lab exam Start: 03-09-2021 End: 03-09-2021 Patient encounter status Gonzalez Saunders MD Work Phone: [facility] Start: 02-27-2021 Refill Taylor Hicks RN [facility] Comment on above: Medication Refill Start: 08-12-2020 End: 08-12-2020 Orders Only Emerald Arcosangel luis Work Phone: [facility] Start: 07-26-2020 End: 07-26-2020 Phys/qhp telephone evaluation 11-20 min Gonzalez Saunders Work Phone: [facility] Comment on above: Coronary artery dise ase involving lower sioux coronary artery of lower sioux heart, angina presence unspecified (Primary Dx); Essential hypertension; Mixed hyperlipidemia; Type 2 diabetes mellitus with other circulatory complication, with long-term current use of insulin (HCC) Start: 07-26-2020 CEL[facility] Legacy Provider Not I n System [facility] Historical Mapping Start: 07-26-2020 End: 07-26-2020 CELIA Legacy Provider Not In System [facility] Start: 06-27-2020 End: 06-27-2020 Subsequent hospital visit by physician Gonzalez Saunders Work Phone: [facility] Comment on above: CARRILLO (dyspnea on exer tion) Start: 06-16-2020 End: 06-16-2020 Office outpatient visit 25 minutes Gonzalez Saunders Work Phone: [facility] Comment on above: CARRILLO (dyspnea on exer tion) (Primary Dx); Coronary artery disease involving lower sioux coronary artery of lower sioux heart, angina presence unspecified; Essential hypertension; Mixed hyperlipidemia; Type 2 diabetes mellitus with other circulatory complication, with long-term current use of insulin (HCC); Medication therapy changed Start: 04-03-2020 End: 04-03-2020 Office outpatient visit 25 minutes Reinier Wiseman Work Phone: [facility] Comment on above: Type 2 diabetes delbert itus with other circulatory complication, with long-term current use of insulin (HCC) (Primary Dx) Start: 01-03-2020 End: 01-03-2020 Office outpatient visit 25 minutes Frances Nascimento Work Phone: [facility] Comment on above: Type 2 diabetes delbert itus with other circulatory complication, with long-term current use of insulin (HCC) (Primary Dx); Hypothyroidism, unspecified type; Essential hypertension; Mixed hyperlipidemia Start: 12-25-2019 Refill Denisse Peña MD Work Phone: [facility] Start: 09-02-2019 End: 09-02-2019 Office outpatient visit 15 minutes Reinier Wiseman Work Phone: [facility] Comment on above: Uncontrolled type 2 diabetes mellitus with hyperglycemia (HCC) (Primary Dx); Essential hypertension; Mixed hyperlipidemia Start: 08-30-2019 End: 08-30-2019 Postop follow up visit related to original px Genaro Carlson Work Phone: [facility] Comment on above: Cyst of perineum of female (Primary Dx) Start: 08-23-2019 End: 06-08-2024 Documentation procedure Anne Kaminski [facility] Start: 08-23-2019 End: 08-23-2019 Patient encounter procedure Genaro Carlson Work Phone: [facility] Comment on above: Cyst of perineum of female (Primary Dx) Start: 08-03-2019 End: 08-03-2019 Office outpatient new 20 minutes Ryan Gomez Work Phone: [facility] Comment on above: Cyst of perineum of female (Primary Dx) Start: 03-18-2019 End: 03-18-2019 Office outpatient visit 25 minutes Denisse Richardson Work Phone: [facility] Comment on above: Uncontrolled type 2 diabetes mellitus with hyperglycemia (HCC) (Primary Dx); Mixed hyperlipidemia; Essential hypertension Start: 01-06-2019 End: 01-06-2019 Office outpatient visit 25 minutes Darcy Sharpe Work Phone: [facility] Comment on above: Coronary artery dise ase involving lower sioux coronary artery of lower sioux heart without angina pectoris; Essential hypertension; Hypercholesterolemia Start: 12-18-2018 End: 12-18-2018 Patient encounter procedure Denisse Lady Richardson Work Phone: [facility] Comment on above: Dyspnea on exertion Start: 12-15-2018 End: 12-15-2018 Office outpatient new 45 minutes Denisse Lady Richardson Work Phone: [facility] Comment on above: Poorly controlled ty pe 2 diabetes mellitus (HCC) (Primary Dx); Mixed hyperlipidemia; Essential hypertension; Dyspnea on exertion Start: 10-06-2018 End: 10-06-2018 Patient encounter procedure Ryan Gomez Work Phone: [facility] Comment on above: Chest pain, unspecif ied type; Coronary artery disease, angina presence unspecified, unspecified vessel or lesion type, unspecified whether lower sioux or transplanted heart Start: 08-31-2018 End: 08-31-2018 Emergency department patient visit Faith Batista Facility:[facility] Start: 08-10-2018 End: 08-10-2018 Office outpatient visit 25 minutes Gonzalez Saunders Work Phone: [facility] Comment on above: Hypercholesterolemia (Primary Dx); Coronary artery disease involving lower sioux coronary artery of lower sioux heart without angina pectoris; Essential hypertension; Type 2 diabetes mellitus with other circulatory complication, with long-term current use of insulin (HCC) Start: 10-10-2017 Office/outpatient vi sit, est, level 4 Gonzalez Saunders Work Phone: [facility] Start: 04-01-2017 Office/outpatient vi sit, est, level 4 Demond William Work Phone: [facility] Procedures Date Procedure Procedure Detail Performing Clinician Start: 12-24-2024 Ecg routine ecg w/le ast 12 lds w/i&r Jacquie Carrillo MD Work Phone: Start: 12-08-2024 Methadone measurement, urine Dr. Ramón Coulter MD Work Phone: Start: 12-08-[address] Ramón Coulter MD Work Phone: Comment on above: Test Ordered: [id number] Compliance Drug Analysis, Andrewsarahy Report (Summary) FINAL MX Reference Range: . ==TOXASSURE COMP DRUG ANALYSIS,UR Test Result Flag UnitsDrug Present Tramadol 6040 ng/mg creat O-Desmethyltramadol 09971 ng/mg creat N-Desmethyltramadol 577 ng/mg creat Source of tramadol is a prescription medication. O-desmethyltramadol and N-desmethyltramadol are expected metabolites of tramadol. Trazodone PRESENT Acetaminophen PRESENT Doxylamine PRESENT Dextrorphan/Levorphanol PRESENT Dextrorphan is an expected metabolite of dextromethorphan, an vyvk-bsk-exbsjca or prescription cough suppressant. Levorphanol is a scheduled prescription medication. Dextrorphan cannot be distinguished from levorphanol by the method used for analysis. Guaifenesin PRESENT Guaifenesin may be administered as an hjpj-lyz-bitqyqi or prescription drug; it may also be present as a breakdown product of methocarbamol. Test Result Flag Units Ref Range Creatinine 30 mg/dL >=20 =====Declared Medications: Medication list was not provided. For clinical consultation, please call . Performed at: [facility] [address] [id number] Director: Kavita Daly [facility], Phone: [phone] at: [facility] [address] [id number] Director: Joel Hart PhD, Phone: [phone] Start: 12-02-2024 SARS-CoV-2, Influenz a & RSV (PCR) Dr. Ramón Coulter MD Work Phone: Start: 10-25-2024 MRI of joint of lowe r extremity Dr. Ramón Coulter MD Work Phone: Start: 10-20-2024 CT of upper limb wit hout contrast Dr. Ramón Coulter MD Work Phone: Start: 09-27-2024 Plain X-ray of shoulder Dr. Ramón Coulter MD Work Phone: Start: 09-16-2024 Radex humerus minimu m 2 views Mika Uribe MD Work Phone: Start: 06-21-2024 Glucose quantitative blood xcpt reagent strip Denis De Leon DO Work Phone: Start: 06-21-2024 Glucose quantitative blood xcpt reagent strip Denis De Leon DO Work Phone: Start: 06-20-2024 Glucose quantitative blood xcpt reagent strip Audra Frias MD Work Phone: Start: 06-20-2024 Glucose quantitative blood xcpt reagent strip Audra Frias MD Work Phone: Start: 06-20-2024 Glucose quantitative blood xcpt reagent strip Audra Frias MD Work Phone: Start: 06-20-2024 Glucose quantitative blood xcpt reagent strip Audra Frias MD Work Phone: Start: 06-19-2024 Glucose quantitative blood xcpt reagent strip Audra Frias MD Work Phone: Start: 06-19-2024 Glucose quantitative blood xcpt reagent strip Audra Frias MD Work Phone: Start: 06-19-2024 Glucose quantitative blood xcpt reagent strip Audra Frias MD Work Phone: Start: 06-19-2024 Glucose quantitative blood xcpt reagent strip Audra Frias MD Work Phone: Start: 06-19-2024 Glucose quantitative blood xcpt reagent strip Audra Frias MD Work Phone: Start: 06-19-2024 Blood count complete automated Keith Alexandra MD Work Phone: Start: 06-19-2024 Glucose quantitative blood xcpt reagent strip Audra Frias MD Work Phone: Start: 06-18-2024 Glucose quantitative blood xcpt reagent strip Audra Frias MD Work Phone: Start: 06-18-2024 Glucose quantitative blood xcpt reagent strip Audra Frias MD Work Phone: Start: 06-18-2024 Glucose quantitative blood xcpt reagent strip Audra Frias MD Work Phone: Start: 06-18-2024 Glucose quantitative blood xcpt reagent strip Audra Frias MD Work Phone: Start: 06-17-2024 End: 06-18-2024 Blood count complete automated Keith Alexandra MD Work Phone: Start: 06-17-2024 Glucose quantitative blood xcpt reagent strip Audra Frias MD Work Phone: Start: 06-17-2024 Glucose quantitative blood xcpt reagent strip Audra Frias MD Work Phone: Start: 06-17-2024 Glucose quantitative blood xcpt reagent strip Audra Frias MD Work Phone: Start: 06-17-2024 Radiologic examinati on femur minimum 2 views Keith Alexandra MD Work Phone: Start: 06-17-2024 Glucose quantitative blood xcpt reagent strip Audra Frias MD Work Phone: Start: 06-17-2024 FL GUIDANCE OR USE O NLY - NON-RESULTABLE Mika Uribe MD Work Phone: Start: 06-17-2024 Glucose quantitative blood xcpt reagent strip Audra Frias MD Work Phone: Start: 06-17-2024 End: 06-17-2024 Basic metabolic panel calcium total Christy Snyder DO Work Phone: Start: 06-17-2024 Antibody screen MIKA ALCARAZ Comment on above: Performed By: #### L [id number] ####[employer] Operator: NED WILKINS ([phone])[facility] ([facility])[address] [place] [address] Start: 06-17-2024 ABO and Rh group [Ty pe] in Blood by Confirmatory method Bharat Joe MD Work Phone: Start: 06-17-2024 Basic metabolic pane l calcium total Bharat Joe MD Work Phone: Start: 06-17-2024 Blood typing serologic abo Bharat Joe MD Work Phone: Start: 06-17-2024 Radex foot complete minimum 3 views Bharat Joe MD Work Phone: Start: 06-17-2024 Radiologic exam ches t single view Bharat Joe MD Work Phone: Start: 06-17-2024 Ecg routine ecg w/le ast 12 lds trcg only w/o i&r Bharat Joe MD Work Phone: Start: 06-17-2024 Ct cervical spine w/ o contrast material [employer] Work Phone: Start: 06-17-2024 Ct head/brain w/o co ntrast material Tyler N Evelia PA-eflow Work Phone: Start: 06-17-2024 Radiologic examinati on femur minimum 2 views [employer] Work Phone: Start: 05-19-2024 Ecg routine ecg w/le ast 12 lds w/i&r Dayana Moreau CNP Work Phone: Start: 04-06-2024 Follow-up visit Follow-up JACQUIE FIELDS Start: 10-16-2023 US scan of bladder Dr. Ryan Gomez Work Phone: Start: 03-14-2023 Ecg routine ecg w/le ast 12 lds w/i&r Gonzalez Saunders MD Work Phone: Start: 09-18-2022 Mammography Gonzalez briscoe MD Work Phone: Start: 04-05-2022 Ecg routine ecg w/le ast 12 lds w/i&r Gonzalez Saunders MD Work Phone: Start: 03-09-2021 Ecg routine ecg w/le ast 12 lds w/i&r Gonzalez Saunders MD Work Phone: Start: 06-27-2020 Echocardiography Orlando Saunders Work Phone: Start: 04-03-2020 3 comp foot exam completed Gonzalez Saunders Start: 03-29-2020 Microalbumin [Mass/v olume] in Urine by Test strip Taylor Hicks RN Start: 01-03-2020 3 comp foot exam completed Reinier Wiseman Start: 09-02-2019 3 comp foot exam completed Reinier Ivone Start: 03-18-2019 3 comp foot exam completed Denisse Richardson Start: 12-18-2018 Contrast echocardiography Denisse Ann Richardson Work Phone: Start: 12-15-2018 3 comp foot exam completed Denisse Richardson Start: 10-06-2018 Cv strs tst xers&/or rx cont ecg w/o i&r External Transcribed Start: 02-16-2018 Ophthalmic examinati on and evaluation Rima Hall MA Start: 02-24-2017 Colonoscopy Reinier mo Plan of Treatment Date Care Activity Detail Author Start: 03-24-2034 DTaP/Tdap/Td Vaccines (2 - Td or Tdap) DTaP/Tdap/Td Vaccines (2 - Td or Tdap) [facility] Start: 03-24-2034 Tetanus vaccination Tetanus: Every 10yrs [facility] Start: 02-24-2027 Screening for malignant neoplasm of colon [facility] Start: 02-26-2026 Diabetes Screening Diabetes Screening [facility] Start: 06-17-2025 Diabetes: Estimated Glomerular Filtration Rate for Kidney Health Diabetes: Estimated Glomerular Filtration Rate for Kidney Health [facility] Start: 03-25-2025 eGFR Diabetes eGFR Diabetes [facility] Start: 03-25-2025 Urine screening for protein eGFR Diabetes [facility] Start: 03-24-2025 Depression screening using PHQ-9 (Patient Health Questionnaire 9) score Depression Screening/Follow-Up (PHQ-2/9) [facility] Start: 12-29-2024 End: 12-29-2024 Patient encounter procedure 12/29/2024 10:30 AM EDT Office Visit [facility] [address] [place] [address] Carmen Llanes II, OD [address] [place] [address] Diabetic Eye exam/[employer] Comment on above: Diabetic Eye exam/[employer] Start: 12-16-2024 Hemoglobin A1c measurement A1C [facility] Start: 12-08-2024 Procedure [facility] Start: 12-02-2024 SARS-CoV-2, Influenza & RSV (PCR) SARS-CoV-2, Influenza & RSV (PCR) [facility] Start: 12-02-2024 [facility] Start: 10-25-2024 MR Lower Extremity Joint [facility] Start: 09-22-2024 Hemoglobin A1c measurement A1C [facility] Start: 09-20-2024 Patient referral [facility] Work Phone: Start: 09-16-2024 End: 09-14-2025 XR Femur - right 2 Views XR femur right 2+ views Imaging Routine Closed fracture of distal end of right femur, unspecified fracture morphology, initial encounter ([facility]) Expected: 09/16/2024, Expires: 09/14/2025 [facility] Work Phone: Comment on above: Expected: 09/16/2024, Expires: Start: 09-16-2024 End: 09-16-2024 Patient encounter procedure 09/16/2024 11:20 AM EDT Office Visit [facility] [place] [address] [place] [id number] Mika Uribe MD [address] [place], [place] [id number] [facility] [place] Start: 09-14-2024 End: 09-14-2024 Patient encounter procedure 09/14/2024 11:30 AM EDT Office Visit [facility] [place] [address] [facility] [address] [place] [phone] Mika Uribe MD [address] [facility] [address] [place], [place] [id number] [facility] [place] Start: 07-13-2024 End: 07-12-2025 XR Femur - right 2 Views XR femur right 2+ views Imaging Routine Closed fracture of distal end of right femur, unspecified fracture morphology, initial encounter ([facility]) Expected: 07/13/2024, Expires: 07/12/2025 [facility] Work Phone: Comment on above: Expected: 07/13/2024, Expires: Start: 07-13-2024 End: 07-13-2024 Patient encounter procedure 07/13/2024 11:30 AM EST Office Visit [facility] [place] [address] [facility] [address] [place] [address] Mika Uribe MD [address] [facility] [address] [place] [address] [facility] [place] Start: 07-07-2024 Medicare Advantage Annual Wellness Visit Medicare Advantage Annual Wellness Visit [facility] Start: 06-29-2024 End: 06-29-2024 Patient encounter procedure 06/29/2024 10:15 AM EST Office Visit [facility] [address] [facility] [place] [phone] Jacquie Fields MD [address] [place] [address] [facility] Start: 06-08-2024 End: 06-08-2024 Patient encounter procedure 06/08/2024 10:30 AM EST Office Visit [facility] [address] [place] [address] [place] [phone] Jacquie Fields MD [address] [place] [address] [facility] Start: 05-19-2024 End: 05-19-2024 Patient encounter procedure 05/19/2024 1:30 PM EST Office Visit [facility] [address] [facility], 3rd [place] [address] Dayana Moreau CNP [address] [place] [address] [facility] Start: 05-10-2024 End: 05-10-2024 Patient encounter procedure 05/10/2024 10:45 AM EST Office Visit [facility] [address] [place] [address] [place] [phone] Jacquie Fields MD [address] [place] [address] [facility] Start: 04-06-2024 End: 04-06-2024 Patient encounter procedure 04/06/2024 10:00 AM EDT Office Visit [facility] [address] [place] [address] [place] [address] Jacquie Fields MD [address] [place] [address] [facility] Start: 03-30-2024 End: 03-30-2024 Patient encounter procedure 03/30/2024 11:45 AM EDT Appointment [address] [address] Duane Miller, PT [facility] Start: 03-07-2024 COVID-19 Vaccine ( season) COVID-19 Vaccine ( season) [facility] Start: 03-07-2024 COVID-19 Vaccine ( season) COVID-19 Vaccine ( season) [facility] Start: 03-07-2024 Influenza vaccination Influenza Vaccine (#1) [facility] Start: 12-19-2023 Hepatitis C antibody, confirmatory test DILATED RETINAL EXAM [facility] Start: 10-20-2023 Procedure [facility] Start: 10-08-2023 Covid-19 Vaccine ( season) Covid-19 Vaccine () [facility] Start: 09-19-2023 Screening for malignant neoplasm of breast Mammogram [facility] Start: 07-07-2023 Advance Directive Discussion Advance Directive Discussion [facility] Start: 07-07-2023 Behavioral Health Screening Behavioral Health Screening [facility] Start: 07-07-2023 Medicare Advantage Annual Wellness Visit Medicare Advantage Annual Wellness Visit [facility] Start: 05-02-2023 End: 05-02-2023 Patient encounter procedure 05/02/2023 11:00 AM EDT Office Visit [facility] [address] [facility] [place] [address] Gonzalez Saunders MD [address] [place] [address] [facility] Start: 04-25-2023 End: 04-25-2023 Patient encounter procedure 04/25/2023 11:00 AM EDT Office Visit [facility] [address] [facility] [place] [address] Gonzalez Saunders MD [address] [place] [address] [facility] Start: 03-07-2023 Covid-19 Vaccine () Covid-19 Vaccine () [facility] Start: 03-07-2023 Influenza vaccination [facility] Start: 02-24-2023 Procedure [facility] Start: 12-11-2022 Hepatitis C antibody, confirmatory test DILATED RETINAL EXAM [facility] Start: 07-07-2022 ADVANCE DIRECTIVE DISCUSSION ADVANCE DIRECTIVE DISCUSSION [facility] Start: 07-07-2022 DEPRESSION ASSESSMENT DEPRESSION ASSESSMENT [facility] Start: 04-05-2022 End: 04-05-2022 Patient encounter procedure 04/05/2022 Office Visit Cardiology Gonzalez Saunders MD [address] [place] [address] [facility] Start: 03-07-2022 Influenza vaccination Sequential Influenza Vaccine (#1) [facility] Start: 10-16-2021 COVID-19 VACCINE (4 - Booster for Moderna series) COVID-19 VACCINE (4 - Booster for Moderna series) [facility] Start: 08-12-2021 COVID-19 Vaccine (4 - Booster for Moderna series) COVID-19 Vaccine (4 - Booster for Moderna series) [facility] Start: 08-12-2021 COVID-19 Vaccine (4 - Moderna series) COVID-19 Vaccine (4 - Moderna series) [facility] Start: 07-07-2021 ADVANCE DIRECTIVE DISCUSSION ADVANCE DIRECTIVE DISCUSSION [facility] Start: 04-07-2021 COVID-19 Vaccine (3 - Booster for Moderna series) COVID-19 Vaccine (3 - Booster for Moderna series) [facility] Start: 04-03-2021 Diabetic foot examination [facility] Start: 03-29-2021 Microalbumin measurement, urine, quantitative Urine Microalbumin [facility] Start: 03-29-2021 Urine screening for protein [facility] Start: 03-15-2021 End: 03-15-2021 Patient encounter procedure 03/15/2021 Appointment Cardiology Gonzalez Saunders MD [address] [place] [address] [facility] Start: 03-15-2021 End: 03-15-2021 Patient encounter procedure 03/15/2021 Appointment Cardiology Gonzalez [facility]unders [facility] [address] [facility] [place] [address] [facility] Start: 03-12-2021 End: 03-12-2021 Patient encounter procedure 03/12/2021 Office Visit Lab Gonzalez Saunders MD [address] [place] [address] [facility] Start: 03-09-2021 End: 03-09-2021 Patient encounter procedure 03/09/2021 Office Visit Cardiology Gonzalez Saunders MD [address] [place] [address] [facility] Start: 03-08-2021 COVID-19 Vaccine (3 - Booster for Moderna series) COVID-19 Vaccine (3 - Booster for Moderna series) [facility] Start: 03-07-2021 Influenza vaccination Sequential Influenza Vaccine (#1) [facility] Start: 01-02-2021 Diabetic foot examination Foot Exam [facility] Start: 2020 Respiratory Syncytial Virus Immunization: Risk, 60-74 Risk, or 75+ (1 - 1-dose 75+ series) Respiratory Syncytial Virus Immunization: Risk, 60-74 Risk, or 75+ (1 - 1-dose 75+ series) [facility] Start: 2020 RSV Immunization for Adults (1 - 1-dose 75+ series) RSV Immunization for Adults (1 - 1-dose 75+ series) [facility] Start: 09-26-2020 HbA1c (Bld) [Mass fraction] A1C [facility] Start: 09-26-2020 Hemoglobin A1c measurement A1C [facility] Start: 09-02-2020 Diabetic foot examination FOOT EXAM [facility] Start: 08-03-2020 End: 08-03-2020 Office Visit [facility] Start: 07-26-2020 End: 07-26-2020 Office Visit 07/26/2020 Office Visit Cardiology Gonzalez Saunders MD [address] [place] [address] [phone] [facility] Start: 06-27-2020 End: 06-27-2020 Appointment 06/27/2020 Appointment Cardiology Gonzalez Saunders MD [address] [place] [address] [phone] [facility] Start: 06-23-2020 End: 06-16-2021 Basic metabolic 1998 panel - Serum or Plasma Chem 7 Lab Routine Coronary artery disease involving [place] coronary artery of [place] heart, angina presence unspecified CARRILLO (dyspnea on exertion) Medication therapy changed Expected: 06/23/2020, Expires: 06/16/2021 [facility] Comment on above: Expected: 06/23/2020, Expires: Start: 05-03-2020 End: 05-03-2020 Office Visit 05/03/2020 Office Visit Cardiology Gonzalez Saunders MD [address] [place] [address] [phone] [facility] Start: 04-04-2020 End: 01-02-2021 Comprehensive metabolic 2000 panel Comprehensive Metabolic Panel Lab Routine Type 2 diabetes mellitus with other circulatory complication, with long-term current use of insulin (HCC) Expected: 04/04/2020, Expires: 01/02/2021 [facility] Comment on above: Expected: 04/04/2020, Expires: Start: 04-04-2020 End: 01-02-2021 Free T4 [Mass/Vol] T4, Free Lab Routine Hypothyroidism, unspecified type Expected: 04/04/2020, Expires: 01/02/2021 [facility] Comment on above: Expected: 04/04/2020, Expires: 1 Start: 04-04-2020 End: 01-02-2021 HbA1c (Bld) [Mass fraction] Hemoglobin A1c Lab Routine Type 2 diabetes mellitus with other circulatory complication, with long-term current use of insulin (HCC) Expected: 04/04/2020, Expires: 01/02/2021 [facility] Comment on above: Expected: 04/04/2020, Expires: Start: 04-04-2020 End: 01-02-2021 Lipid 1996 panel Lipid Panel Lab Routine Mixed hyperlipidemia Expected: 04/04/2020, Expires: 01/02/2021 [facility] Comment on above: Expected: 04/04/2020, Expires: Start: 04-04-2020 End: 01-02-2021 TSH Qn TSH Lab Routine Hypothyroidism, unspecified type Expected: 04/04/2020, Expires: 01/02/2021 [facility] Comment on above: Expected: 04/04/2020, Expires: Start: 04-03-2020 End: 04-03-2020 Office Visit 04/03/2020 Office Visit Endocrinology Frances Nascimento, [employer] [address] [address] [phone] [facility] Start: 03-18-2020 Diabetic foot examination FOOT EXAM [facility] Start: 03-07-2020 Influenza vaccination given [facility] Start: 02-28-2020 HbA1c (Bld) [Mass fraction] A1C [facility] Start: 12-31-2019 End: 12-31-2019 Office Visit 12/31/2019 Office Visit Endocrinology Reinier Wiseman PA-C [address] [address] [phone] [facility] Start: 12-16-2019 Diabetic foot examination FOOT EXAM [facility] Start: 10-18-2019 End: 10-18-2019 Office Visit 10/18/2019 Office Visit Cardiology Gonzalez Saunders MD [address] [place] [address] [phone] [facility] Start: 09-07-2019 HbA1c (Bld) [Mass fraction] A1C [facility] Start: 09-02-2019 End: 09-02-2019 Office Visit 09/02/2019 Office Visit [facility]ocrinology [facility] [address] [address] [phone] [facility] Start: 08-30-2019 End: 08-30-2019 Follow-Up 08/30/2019 Follow-Up General Surgery Genaro Carlson MD [address] [facility] [address] [place] [address] [phone] [facility] Start: 08-23-2019 End: 08-23-2019 Procedure visit 08/23/2019 Procedure visit General Surgery Genaro Carlson MD [address] [facility] [address] [place] [address] [phone] [facility] Start: 07-19-2019 End: 03-18-2020 Complete blood count with white cell differential, manual CBC and Differential Lab Routine Uncontrolled type 2 diabetes mellitus with hyperglycemia (HCC) Expected: 07/19/2019, Expires: 03/18/2020 [facility] Comment on above: Expected: 07/19/2019, Expires: 0 Start: 07-19-2019 End: 03-18-2020 Comprehensive metabolic 2000 panel Comprehensive Metabolic Panel Lab Routine Uncontrolled type 2 diabetes mellitus with hyperglycemia (HCC) Expected: 07/19/2019, Expires: 03/18/2020 [facility] Comment on above: Expected: 07/19/2019, Expires: 0 Start: 07-19-2019 End: 03-18-2020 Free T4 [Mass/Vol] T4, Free Lab Routine Uncontrolled type 2 diabetes mellitus with hyperglycemia (HCC) Expected: 07/19/2019, Expires: 03/18/2020 [facility] Comment on above: Expected: 07/19/2019, Expires: 0 Start: 07-19-2019 End: 03-18-2020 HbA1c (Bld) [Mass fraction] Hemoglobin A1c Lab Routine Uncontrolled type 2 diabetes mellitus with hyperglycemia (HCC) Expected: 07/19/2019, Expires: 03/18/2020 [facility] Comment on above: Expected: 07/19/2019, Expires: 0 Start: 07-19-2019 End: 03-18-2020 Lipid 1996 panel Lipid Panel Lab Routine Uncontrolled type 2 diabetes mellitus with hyperglycemia (HCC) Expected: 07/19/2019, Expires: 03/18/2020 [facility] Comment on above: Expected: 07/19/2019, Expires: 0 Start: 07-19-2019 End: 03-18-2020 TSH Qn TSH Lab Routine Uncontrolled type 2 diabetes mellitus with hyperglycemia (HCC) Expected: 07/19/2019, Expires: 03/18/2020 [facility] Comment on above: Expected: 07/19/2019, Expires: 0 Start: 07-19-2019 End: 07-19-2019 Office Visit 07/19/2019 Office Visit Endocrinology Frances Nascimento, [employer] [address] [address] [phone] [facility] Start: 03-18-2019 End: 03-18-2019 Office Visit 03/18/2019 Office Visit Endocrinology Denisse Richardson MD [address] [address] [phone] [facility] Start: 03-07-2019 Influenza vaccination given [facility] Start: 02-28-2019 Hemoglobin A1c/Hemoglobin.total mass fraction (Bld) [facility] Start: 02-16-2019 Glaucoma screening [facility] Start: 02-16-2019 Ophthalmic examination and evaluation Ophthalmology Exam [facility] Start: 01-06-2019 End: 01-06-2019 Office Visit 01/06/2019 Office Visit Cardiology Darcy Sharpe, [employer] [address] [place] [address] [phone] [facility] Start: 01-04-2019 End: 01-04-2019 Appointment 01/04/2019 Appointment Cardiology Denisse Richardson MD [address] [facility] [address] [address] [phone] [facility] Start: 12-15-2018 End: 12-15-2018 Office Visit 12/15/2018 Office Visit Endocrinology [facility] [address] [facility] [address] [address] [phone] [facility] Start: 03-07-2018 Influenza vaccination given SEQUENTIAL INFLUENZA VACCINE (#1) [facility] Start: 03-07-2017 Influenza vaccination SEQUENTIAL INFLUENZA VACCINE (#1) [facility] Work Phone: Start: 10-15-2016 End: 10-25-2016 *Microalbumin, Creatine Ratio, rand urine *Microalbumin, Creatine Ratio, rand urine [facility] Work Phone: Start: 10-15-2016 End: 10-25-2016 Thyroid stimulating hormone (TSH) *TSH [facility] Work Phone: Start: 09-14-2016 Hepatitis B surface antibody level LDL CHOLESTEROL [facility] Start: 04-11-2016 3 comp foot exam completed DIABETIC FOOT EXAM [facility] Start: 03-17-2016 Hemoglobin A1c/Hemoglobin.total in Blood HbA1C [facility] Start: 12-16-2015 Hemoglobin A1c/Hemoglobin.total in Blood HBA1C [facility] Start: 09-30-2015 Hepatitis B screening URINE ALBUMIN:CREATININE RATIO [facility] Start: 2010 BONE DENSITY BONE DENSITY [facility] Start: 2010 Bone Density Screening Bone Density Screening [facility] Start: 2010 Fall risk assessment [facility] Start: 2010 Pneumococcal vaccination PNEUMOCOCCAL VACCINE AGE 65+ (1 of 2 - PCV13) [facility] Work Phone: Start: 2010 Pneumococcal Vaccine: 65+ (2 - PCV) Pneumococcal Vaccine: 65+ (2 - PCV) [facility] Start: 2010 Screening for osteoporosis Bone Density Screening [facility] Start: 07-07-2006 PNEUMOCOCCAL: 65+ (2 - PCV) PNEUMOCOCCAL: 65+ (2 - PCV) [facility] Start: 2005 RSV Vaccine (1 - 1-dose 60+ series) RSV Vaccine (1 - 1-dose 60+ series) [facility] Start: 2005 Zoster vacc, sc ZOSTER VACCINE [facility] Work Phone: Start: 11-28-1995 Administration of herpes zoster vaccine ZOSTER VACCINES (1 of 2) [facility] Start: 11-28-1995 Screening for malignant neoplasm of colon [facility] Start: 11-28-1995 SHINGRIX VACCINE (1 of 2) SHINGRIX VACCINE (1 of 2) [facility] Start: 1985 Screening for malignant neoplasm of breast Mammogram [facility] Start: 1964 Administration of herpes zoster vaccine Zoster Vaccines (1 of 2) [facility] Start: 1964 Urine microalbumin profile [facility] Start: 11-28-1963 ANNUAL PCP TEAM CHRONIC DISEASE VISIT ANNUAL PCP TEAM CHRONIC DISEASE VISIT [facility] Start: 11-28-1963 BP CONTROLLED (<130/80) BP CONTROLLED (<130/80) [facility] Start: 11-28-1963 Diabetes: Urine Albumin-Creatinine Ratio for [facility] Diabetes: Urine Albumin-Creatinine Ratio for [facility] Start: 11-28-1963 Hepatitis C antibody, confirmatory test Hepatitis C Screening [facility] Start: 11-28-1963 Hepatitis C screening Hepatitis C Screening [facility] Start: 11-28-1963 HEPATITIS C SCREENING HEPATITIS C SCREENING [facility] Start: 1961 COVID-19 Vaccine (1 of 2) COVID-19 Vaccine (1 of 2) [facility] Start: 1957 Adolescent depression screening assessment [facility] Start: 1957 COVID-19 Vaccine (1) COVID-19 Vaccine (1) [facility] Start: 1957 Depression Monitoring Depression Monitoring [facility] Start: 1957 Depression screening using PHQ-9 (Patient Health Questionnaire 9) score [facility] Start: 11-28-1955 End: 11-28-1955 Diabetic foot examination (regime/therapy) FOOT EXAM [facility] Work Phone: Start: 11-28-1955 End: 11-28-1955 Ophthalmic examination and evaluation OPHTHALMOLOGY EXAM [facility] Start: 11-28-1955 End: 11-28-1955 Urine, microalbumin URINE MICROALBUMIN [facility] Work Phone: Start: 11-28-1951 Pneumococcal Vaccine: Age 65+ (1 of 4 - PCV13) Pneumococcal Vaccine: Age 65+ (1 of 4 - PCV13) [facility] Start: 1948 History and physical examination, annual for health maintenance Wellness Visit [facility] Start: 1948 Medicare Wellness Visit Medicare Wellness Visit [facility] Start: 1945 Colonoscopy COLONOSCOPY [facility] Start: 1945 Depression screening using PHQ-9 (Patient Health Questionnaire 9) score DEPRESSION SCREENING (PHQ9) [facility] Start: 1945 Fall risk assessment Falls Risk Assessment [facility] Start: 1945 Hepatitis C antibody, confirmatory test HEPATITIS C SCREENING [facility] Start: 1945 Protein mass conc Mammogram [facility] Start: 1945 Screening for malignant neoplasm of colon Colorectal Cancer Screening: Colonoscopy [facility] Start: 1945 Screening for substance abuse SUBSTANCE ABUSE SCREENING (AUDIT-C) [facility] Start: 1945 Screening mammography Mammogram [facility] Start: 1945 End: 1945 HbA1c HEMOGLOBIN A1C [facility] Work Phone: Start: 1945 HEPATITIS C SCREENING HEPATITIS C SCREENING [facility] Work Phone: Start: 1945 Screening colonoscopy COLONOSCOPY [facility] Work Phone: Start: 1945 End: 1945 Screening for osteoporosis [facility] Start: 1945 End: 1945 Tetanus vaccination [facility] 12 lead ECG ECG 12 lead ECG Routine Primary hypertension 05/19/2024 12:49 PM EST [facility] End: 04-06-2023 Cardiac event recording Cardiac event monitor Cardiac Services Routine Near syncope 1 Occurrences starting 04/05/2022 until 04/06/2023 [facility] Work Phone: Comment on above: 1 Occurrences starting 04/05/2022 until 04/06/2023 End: 12-16-2019 Comprehensive metabolic 2000 panel Comprehensive Metabolic Panel Lab Routine Poorly controlled type 2 diabetes mellitus (HCC) 1 Occurrences starting 12/15/2018 until 12/16/2019 [facility] Comment on above: 1 Occurrences starting 12/15/2018 until 12/16/2019 End: 09-02-2020 Comprehensive metabolic 2000 panel Comprehensive Metabolic Panel Lab Routine Mixed hyperlipidemia 1 Occurrences starting 09/02/2019 until 09/02/2020 [facility] Comment on above: 1 Occurrences starting 09/02/2019 until 09/02/2020 End: 04-03-2021 Comprehensive metabolic 2000 panel Comprehensive Metabolic Panel Lab Routine Type 2 diabetes mellitus with other circulatory complication, with long-term current use of insulin (HCC) 1 Occurrences starting 04/03/2020 until 04/03/2021 [facility] Comment on above: 1 Occurrences starting 04/03/2020 until 04/03/2021 CT Upper extremity W O contrast [facility] End: 02-15-2020 Echocardiography Echocardiogram complete Echocardiography Routine Dyspnea on exertion 1 Occurrences starting 12/15/2018 until 02/15/2020 [facility] Comment on above: 1 Occurrences starting 12/15/2018 until 02/15/2020 End: 06-17-2021 Echocardiography Echocardiogram complete Echocardiography Routine CARRILLO (dyspnea on exertion) 1 Occurrences starting 06/16/2020 until 06/17/2021 [facility] Comment on above: 1 Occurrences starting 06/16/2020 until 06/17/2021 End: 12-16-2019 External Lab Microalbumin/Creatinine External Lab Microalbumin/Creatinine Lab Routine Poorly controlled type 2 diabetes mellitus (HCC) 1 Occurrences starting 12/15/2018 until 12/16/2019 [facility] Comment on above: 1 Occurrences starting 12/15/2018 until 12/16/2019 End: 09-02-2020 HbA1c (Bld) [Mass fraction] Hemoglobin A1c Lab Routine Uncontrolled type 2 diabetes mellitus with hyperglycemia (HCC) 1 Occurrences starting 09/02/2019 until 09/02/2020 [facility] Comment on above: 1 Occurrences starting 09/02/2019 until 09/02/2020 End: 04-03-2021 HbA1c (Bld) [Mass fraction] Hemoglobin A1c Lab Routine Type 2 diabetes mellitus with other circulatory complication, with long-term current use of insulin (HCC) 1 Occurrences starting 04/03/2020 until 04/03/2021 [facility] Comment on above: 1 Occurrences starting 04/03/2020 until 04/03/2021 End: 12-16-2019 Hemoglobin A1c/Hemoglobin.total mass fraction (Bld) Hemoglobin A1c Lab Routine Poorly controlled type 2 diabetes mellitus (HCC) 1 Occurrences starting 12/15/2018 until 12/16/2019 [facility] Comment on above: 1 Occurrences starting 12/15/2018 until 12/16/2019 End: 12-16-2019 Lipid 1996 panel Lipid Panel Lab Routine Poorly controlled type 2 diabetes mellitus (HCC) 1 Occurrences starting 12/15/2018 until 12/16/2019 [facility] Comment on above: 1 Occurrences starting 12/15/2018 until 12/16/2019 End: 09-02-2020 Lipid 1996 panel Lipid Panel Lab Routine Mixed hyperlipidemia 1 Occurrences starting 09/02/2019 until 09/02/2020 [facility] Comment on above: 1 Occurrences starting 09/02/2019 until 09/02/2020 End: 04-03-2021 Lipid 1996 panel Lipid Panel Lab Routine Type 2 diabetes mellitus with other circulatory complication, with long-term current use of insulin (HCC) 1 Occurrences starting 04/03/2020 until 04/03/2021 [facility] Comment on above: 1 Occurrences starting 04/03/2020 until 04/03/2021 End: 05-20-2025 Lipid 1996 panel - Serum or Plasma Lipid panel Lab Routine Hyperlipidemia LDL goal <70 1 Occurrences starting 05/20/2024 until 05/20/2025 [facility] Work Phone: Comment on above: 1 Occurrences starting 05/20/2024 until 05/20/2025 MR Lower Extremity Joint [facility] Patient Education WEIGHT%20MANAG EMENT, HYPERLIPIDEMIA, CHRONIC%20HYPERTENSION [facility] Work Phone: Patient referral [facility] Work Phone: End: 03-10-2022 Radionuclide myocardial perfusion study NM Myocardial Perfusion Multiple SPECT Imaging Routine SOB (shortness of breath) on exertion 1 Occurrences starting 03/09/2021 until 03/10/2022 [facility] Work Phone: Comment on above: 1 Occurrences starting 03/09/2021 until 03/10/2022 End: 03-09-2022 SARS-CoV-2 (COVID-19) RdRp gene [Presence] in Respiratory specimen by SABRINA with probe detection COVID-19, Molecular Microbiology Routine Pre-procedure lab exam 1 Occurrences starting 03/09/2021 until 03/09/2022 [facility] Comment on above: 1 Occurrences starting 03/09/2021 until 03/09/2022 Thyroid stimulating hormone measurement [facility] End: 05-06-2025 XR Shoulder - right 2 Views XR Shoulder Right 2+ Views (Standard) Imaging Routine Pain 1 Occurrences starting 05/06/2024 until 05/06/2025 [facility] Work Phone: Comment on above: 1 Occurrences starting 05/06/2024 until 05/06/2025 End: 06-07-2025 XR Shoulder - right Single view XR Shoulder Right 1 View Imaging Routine Humeral head fracture, right, closed, initial encounter 1 Occurrences starting 06/08/2024 until 06/07/2025 [facility] Work Phone: Comment on above: 1 Occurrences starting 06/08/2024 until 06/07/2025 XR Shoulder - right Single view XR Shoulder Right 1 View Imaging Routine Humeral head fracture, right, closed, initial encounter 06/08/2024 11:01 AM EST [facility] End: 06-11-2025 XR Shoulder - right Single view XR Shoulder Right 1 View Imaging Routine Pain 1 Occurrences starting 06/11/2024 until 06/11/2025 [facility] Work Phone: Comment on above: 1 Occurrences starting 06/11/2024 until 06/11/2025 Immunizations Immunization Date Immunization Notes Care Provider Brittney rodriguez 04-14-2024 Seasonal trivalent influenza vaccine, adjuvanted, preservative free Dr. Ramón Coulter MD Work Phone: [facility] 03-24-2024 tetanus toxoid, redu bunny diphtheria toxoid, and acellular pertussis vaccine, adsorbed Gm Howell RN [facility] 06-08-2023 Covid (Spikevax) Dr. Ryan zelaya Work Phone: [facility] 04-04-2023 influenza, injectabl e, quadrivalent, preservative free Dr. Ryan Gomez Work Phone: [facility] 04-04-2023 influenza virus vaccine, unspecified formulation Gm Howell RN [facility] 11-26-[address] Ryan Gomez Work Phone: [facility] 10-27-2022 Covid Pfizer Bivalen t Booster Dr. Ryan Gomez Work Phone: [facility] 09-10-[address] Ryan Gomez Work Phone: [facility] 06-13-2022 Pneumococcal Vaccine PCV20 (Prevnar 20) Dr. Ryan Gomez Work Phone: [facility] 04-16-2022 Influenza High-Dose Quadrivalent Dr. Ryan Gomez Work Phone: [facility] 06-17-2021 Covid (Pfizer) Dr. Ryan barraza Work Phone: [facility] 04-17-2021 influenza, injectabl e, quadrivalent, preservative free Dr. Ryan Gomez Work Phone: [facility] 10-06-2020 Covid (Moderna) Dr. Ryan alexis Work Phone: [facility] 09-06-2020 Covid (Moderna) Dr. Ryan alexis Work Phone: [facility] 04-04-2020 influenza, injectabl e, quadrivalent, preservative free Dr. Ryan Gomez Work Phone: [facility] 04-20-2019 influenza, injectabl e, quadrivalent, preservative free Dr. Ryan Gomez Work Phone: [facility] 08-31-2018 HEMOGLOBIN A1C Ryan Gomez [facility] 04-20-2018 influenza, injectabl e, quadrivalent, preservative free Dr. Ryan Gomez Work Phone: [facility] 05-08-2017 pneumococcal polysaccharide vaccine, [address] Ryan Gomez Work Phone: [facility] 04-21-2017 influenza, injectabl e, quadrivalent, preservative free Dr. Ryan Gomez Work Phone: [facility] 04-18-2016 pneumococcal conjuga te vaccine, [address] Ryan Gomez Work Phone: [facility] 04-15-2016 influenza, injectabl e, quadrivalent, preservative free Dr. Ryan Gomez Work Phone: [facility] 04-14-2013 influenza, injectabl e, quadrivalent, preservative free Dr. Ryan Gomez Work Phone: [facility] 04-28-2012 influenza virus vaccine, unspecified formulation Carmen Llanes II, OD Work Phone: [facility] Work Phone: 01-04-2009 pneumococcal polysaccharide vaccine, [address] Ryan Gomez Work Phone: [facility] 07-07-2005 pneumococcal polysaccharide vaccine, 23 valent Carmen Llanes II OD Work Phone: [facility] Work Phone: Payers Date Payer Category Payer Self-pay [id number] 2023 Medicare HMO [id number] 2023 Medicare PPO [id number] 1.13.385.2 .[id number] 2023 Unknown [id number] 2023 Private Health Insurance [id number] 2018 Managed Care (unspecified) [employer] [id number] .[id number] 2018 Unknown MMO [employer] [place] [employer] xxxxxxxxxxxx 2018-Present [id number] .7.3.983211.315 2018 Unknown [id number] 1.2.840.293870.1.13.385.2 .7.3.363955.315 2018 Unknown [id number] 2010 Medicare MEDICARE MEDICAR E PART A & B xxxxxxxxxxx 2010-Present [place] xxxxxxxxxxx [id number] .[id number] 2010 Medicare [id number] 1.2.840.454430.1.13.385.2 .7.3.983448.315 2010 Medicare 1.2.840.557082. 1.13.385.2 .7.3.637734.315 2010 Unknown 1.2.840.205373. 1.13.385.2 .7.3.790937.315 2010 Medicare [id number] 2010 Private Health Insurance [id number] 2.16.840.1.091612.3.249.1 3 1945 Unknown [id number] 2.16.840.1.609401.3.579.2 .651 1945 Unknown [id number] 2.16.840.1.106017.3.579.2 .1069 1945 Unknown [id number] 2.16.840.1.003265.3.579.2 .1068 1945 Unknown [id number] 2.16.840.1.243198.3.579.2 .900 1945 Unknown [id number] 2.16.840.1.462405.3.579.2 .1945 Unknown [id number] 2.16.840.1.288017.3.579.2 .90 1945 Unknown [id number] 2.16.840.1.792104.3.579.2 .1945 Unknown [id number] 2.16.840.1.154022.3.579.2 .90 1945 Unknown [id number] 2.16.840.1.086213.3.579.2 .1945 Unknown [id number] 2.16.840.1.832000.3.579.2 .90 1945 Unknown [id number] 2.16.840.1.855667.3.579.2 .1945 Unknown [id number] 2.16.840.1.015242.3.579.2 .90 1945 Unknown [id number] 2.16.840.1.146347.3.579.2 .1945 Unknown [id number] 2.0.1.954275.3.579.2 .1945 Unknown [id number] 2.0.1.510879.3.579.2 1945 Unknown [id number] 20.1.803458.3.579.2 .1945 Unknown [id number] ..1.456976.3.579.2 1945 Unknown [id number] ..1.111980.3.579.2 1945 Unknown [id number] .1.985740.3.579.2 1945 Unknown [id number] .1.783263.3.579.2 . Medicare xxxxxxxxxx .1.463823.3.249.1 3 Medicare [id number] .1.234932.3.249.1 3 Private Health Insurance xxxxxxxxx 08.22.830.1.185011.3.249.1 3 Medicare ANTHEM MEDICARE SENIOR [place] [id number] Unknown [id number] 08.22.830.1.554042.3.579.2 .462 Unknown [id number] 08.22.830.1.578650.3.579.2 .462 Unknown [id number] 08.22.830.1.868537.3.579.2 .462 Unknown [id number] 840.1.625309.3.579.2 .462 Unknown [id number] 840.1.347186.3.579.2 .462 Unknown [id number] 08.22.830.1.576954.3.579.2 .462 Unknown [id number] 2.16.840.1.818703.3.579.2 .462 Unknown [id number] 2.16.840.1.261383.3.579.2 .462 Unknown [id number] 2.16.840.1.293812.3.579.2 .462 Unknown [id number] 2.16.840.1.474570.3.579.2 .462 Unknown [id number] 2.16.840.1.408462.3.579.2 .462 Unknown [id number] 2.840.1.613139.3.579.2 .462 Unknown [id number] 2.840.1.350035.3.579.2 .462 Unknown [id number] 2.840.1.792222.3.579.2 .462 Unknown [id number] 2.840.1.025556.3.579.2 .462 Unknown [id number] 2.840.1.903777.3.579.2 .462 Unknown [id number] 2.840.1.138064.3.579.2 .462 Unknown [id number] 2.840.1.631797.3.579.2 .462 Unknown [id number] 2.840.1.568783.3.579.2 .462 Unknown [id number] 2..840.1.292360.3.579.2 .462 Unknown [id number] 2.840.1.709538.3.579.2 .462 Unknown [id number] 2.16.840.1.350395.3.579.2 .462 Unknown [id number] 2.16840.1.437916.3.579.2 .462 Unknown [id number] 2.16.840.1.536990.3.579.2 .462 Unknown [id number] 2.16840.1.357177.3.579.2 .462 Unknown [id number] 2.16.840.1.578910.3.579.2 .462 Unknown [id number] 2.16.840.1.446558.3.579.2 .462 Unknown [id number] 2.16.840.1.408334.3.579.2 .462 Unknown [id number] 2.16.840.1.854093.3.579.2 .462 Social History Date Type Detail Facility Start: 10-10-2017 End: 03-24-2024 Tobacco smoking status NHIS Never smoker [facility] Work Phone: Start: 1945 Sex Assigned At Not on file [facility] Work Phone: Start: 03-21-2019 End: 12-17-2024 Alcohol intake Current non-drinker of alcohol (finding) [facility] Start: 12-01-2021 End: 04-05-2022 Exposure to SARS-CoV-2 (event) Not sure [facility] Start: 04-05-2020 End: 03-24-2024 Tobacco use and exposure Never used [facility] Start: 01-23-2023 End: 10-09-2023 Tobacco smoking consumption unknown [facility] Start: 10-10-2017 End: 03-24-2024 Cigarette pack-years [facility] Start: 03-29-2022 End: 04-08-2022 Exposure to SARS-CoV-2 (event) Unable to assess [facility] Start: 04-05-2022 End: 03-24-2024 Tobacco use panel [facility] Start: 08-03-2019 Gender identity Identifies as female gender (finding) [facility] Start: 08-03-2019 Sexual orientation Heterosexual (fin ding) [facility] Start: 1945 Sex Assigned At Female W [facility] National Score (1-100), lower number is lower risk 59 [facility] Has the electric, gas, oil, or water company threatened to shut off services in your home in past 12Mo No [facility] (I/We) worried whether (my/our) food would run out before (I/we) got money to buy more. Never true [facility] Start: 06-16-2024 End: 10-25-2024 Sex Female (finding) [facility] [employer] NEGATED: Highlighted rowStart: YAMILET History of tobacco use Passive smoker [facility] Medical Equipment Procedure Code Equipment Code Equipment Origin al Text Equipment Identifier Dates [id number] Start: 03-26-2016 Comment on above: CHECK BLOOD SUGARS 6 TIMES DAILY Dx E11.65 Use as directed 6 times/day One Touch Verio strips . [id number] Start: 03-18-2019 Use to test 6 ti mes per day. DG code E11.65. Use what coordinates with pt meter. . [id number] Start: 03-24-2020 USe to check BG 4x daily, DX code E11.65 insulin used . [id number] Start: 03-24-2020 Blood Sugar Diagnostic (Onetouch Ultra Test) strip Start: 12-18-2020 Blood Sugar Diagnostic (Onetouch Ultra Test) strip Start: 09-13-2022 Insulin Syringe-Needle U-100 (Bd Insulin Syringe Ultra-Fine) 0.3 mL 31 gauge x 5/16 syringe Start: 07-17-2017 Pen Needle, Diabetic (Bd Ultra-Fine Christy Pen Needle) 32 gauge x 5/32 needle Start: 02-19-2018 Pen Needle, Diabetic (Bd Ultra-Fine Christy Pen Needle) 32 gauge x 5/32 needle Start: 04-11-2022 Blood Sugar Diagnostic (Onetouch Ultra Test Strips) strip Start: 02-12-2018 End: 12-18-2020 Blood Sugar Diagnostic (Onetouch Ultra Test) strip Start: 07-15-2017 End: 09-22-2017 Blood Sugar Diagnostic (Onetouch Ultra Test) strip Start: 09-22-2017 End: 09-22-2017 Blood Sugar Diagnostic (Onetouch Ultra Test) strip Start: 09-22-2017 End: 02-12-2018 Blood Sugar Diagnostic (Onetouch Ultra Test) strip Start: 08-16-2021 End: 09-13-2022 Insulin Syringe-Needle U-100 (Bd Insulin Syringe Ultra-Fine) 0.3 mL 31 gauge x 5/16 syringe Start: 07-17-2017 End: 07-17-2017 Blood Sugar Diagnostic (Onetouch Ultra Test) strip Start: 12-18-2020 Blood Sugar Diagnostic (Onetouch Ultra Test) strip Start: 05-20-2023 Insulin Syringe-Needle U-100 (Bd Insulin Syringe Ultra-Fine) 0.3 mL 31 gauge x 5/16 syringe Start: 07-17-2017 Pen Needle, Diabetic (Bd Ultra-Fine Christy Pen Needle) 32 gauge x 5/32 needle Start: 02-19-2018 Pen Needle, Diabetic (Bd Ultra-Fine Christy Pen Needle) 32 gauge x 5/32 needle Start: 05-05-2023 Blood Sugar Diagnostic (Onetouch Ultra Test Strips) strip Start: 02-12-2018 End: 12-18-2020 Blood Sugar Diagnostic (Onetouch Ultra Test) strip Start: 07-15-2017 End: 09-22-2017 Blood Sugar Diagnostic (Onetouch Ultra Test) strip Start: 09-22-2017 End: 09-22-2017 Blood Sugar Diagnostic (Onetouch Ultra Test) strip Start: 09-22-2017 End: 02-12-2018 Blood Sugar Diagnostic (Onetouch Ultra Test) strip Start: 08-16-2021 End: 09-13-2022 Blood Sugar Diagnostic (Onetouch Ultra Test) strip Start: 09-13-2022 End: 05-20-2023 Insulin Syringe-Needle U-100 (Bd Insulin Syringe Ultra-Fine) 0.3 mL 31 gauge x 5/16 syringe Start: 07-17-2017 End: 07-17-2017 Pen Needle, Diabetic (Bd Ultra-Fine Christy Pen Needle) 32 gauge x 5/32 needle Start: 04-11-2022 End: 05-05-2023 Blood Sugar Diagnostic (Onetouch Ultra Test) strip Start: 12-18-2020 Blood Sugar Diagnostic (Onetouch Ultra Test) strip Start: 05-20-2023 Insulin Syringe-Needle U-100 (Bd Insulin Syringe Ultra-Fine) 0.3 mL 31 gauge x 5/16 syringe Start: 07-17-2017 Pen Needle, Diabetic (Bd Ultra-Fine Christy Pen Needle) 32 gauge x 5/32 needle Start: 02-19-2018 Pen Needle, Diabetic (Bd Ultra-Fine Christy Pen Needle) 32 gauge x 5/32 needle Start: 05-05-2023 Blood Sugar Diagnostic (Onetouch Ultra Test Strips) strip Start: 02-12-2018 End: 12-18-2020 Blood Sugar Diagnostic (Onetouch Ultra Test) strip Start: 07-15-2017 End: 09-22-2017 Blood Sugar Diagnostic (Onetouch Ultra Test) strip Start: 09-22-2017 End: 09-22-2017 Blood Sugar Diagnostic (Onetouch Ultra Test) strip Start: 09-22-2017 End: 02-12-2018 Blood Sugar Diagnostic (Onetouch Ultra Test) strip Start: 08-16-2021 End: 09-13-2022 Blood Sugar Diagnostic (Onetouch Ultra Test) strip Start: 09-13-2022 End: 05-20-2023 Insulin Syringe-Needle U-100 (Bd Insulin Syringe Ultra-Fine) 0.3 mL 31 gauge x 5/16 syringe Start: 07-17-2017 End: 07-17-2017 Pen Needle, Diabetic (Bd Ultra-Fine Christy Pen Needle) 32 gauge x 5/32 needle Start: 04-11-2022 End: 05-05-2023 Blood Sugar Diagnostic (Onetouch Ultra Test) strip Start: 12-18-2020 Blood Sugar Diagnostic (Onetouch Ultra Test) strip Start: 05-20-2023 Insulin Syringe-Needle U-100 (Bd Insulin Syringe Ultra-Fine) 0.3 mL 31 gauge x 5/16 syringe Start: 07-17-2017 Pen Needle, Diabetic (Bd Ultra-Fine Christy Pen Needle) 32 gauge x 5/32 needle Start: 02-19-2018 Pen Needle, Diabetic (Bd Ultra-Fine Christy Pen Needle) 32 gauge x 5/32 needle Start: 05-05-2023 Blood Sugar Diagnostic (Onetouch Ultra Test Strips) strip Start: 02-12-2018 End: 12-18-2020 Blood Sugar Diagnostic (Onetouch Ultra Test) strip Start: 07-15-2017 End: 09-22-2017 Blood Sugar Diagnostic (Onetouch Ultra Test) strip Start: 09-22-2017 End: 09-22-2017 Blood Sugar Diagnostic (Onetouch Ultra Test) strip Start: 09-22-2017 End: 02-12-2018 Blood Sugar Diagnostic (Onetouch Ultra Test) strip Start: 08-16-2021 End: 09-13-2022 Blood Sugar Diagnostic (Onetouch Ultra Test) strip Start: 09-13-2022 End: 05-20-2023 Insulin Syringe-Needle U-100 (Bd Insulin Syringe Ultra-Fine) 0.3 mL 31 gauge x 5/16 syringe Start: 07-17-2017 End: 07-17-2017 Pen Needle, Diabetic (Bd Ultra-Fine Christy Pen Needle) 32 gauge x 5/32 needle Start: 04-11-2022 End: 05-05-2023 CHECK BLOOD SUGA RS 6 TIMES DAILY Dx E11.65 [id number] Start: 03-26-2016 Cable W/Crimp 1. 7mm 750mm S - [id number] Start: 06-17-2024 Cable W/Crimp 1. 7mm 750mm S - [id number] Start: 06-17-2024 Screw Optilink 5.0x55mm - [id number] Start: 06-17-2024 Screw Optilink 5.0x80mm - [id number] Start: 06-17-2024 Synthes Rfna/12mm/360mm/10 Degree Bend/Sterile [id number] Start: 06-17-2024 Screw Lck Va 3.5x80mm S-T T15 - [id number]_imp Start: 06-17-2024 Screw Lck Va 3.5x75mm S-T T15 - [id number] Start: 06-17-2024 Screw Bone Im Na il 5x70mm - [id number] Start: 06-17-2024 Screw Bone Im Na il 5x36mm - [id number] Start: 06-17-2024 Screw Lck Va 3.5x70mm S-T T15 - [id number] Start: 06-17-2024 Synthes Locking Attachment Washer/Rfna/10 Degree/Right, Sterile [id number] Start: 06-17-2024 Blood Sugar Diagnostic (Onetouch Ultra Test) strip Start: 12-18-2020 Blood Sugar Diagnostic (Onetouch Ultra Test) strip Start: 04-09-2024 Insulin Syringe-Needle U-100 (Bd Insulin Syringe Ultra-Fine) 0.3 mL 31 gauge x 5/16 syringe Start: 07-17-2017 Pen Needle, Diabetic (Bd Ultra-Fine Christy Pen Needle) 32 gauge x 5/32 needle Start: 02-19-2018 Pen Needle, Diabetic (Bd Ultra-Fine Christy Pen Needle) 32 gauge x 5/32 needle Start: 06-14-2024 Blood Sugar Diagnostic (Onetouch Ultra Test Strips) strip Start: 02-12-2018 End: 12-18-2020 Blood Sugar Diagnostic (Onetouch Ultra Test) strip Start: 07-15-2017 End: 09-22-2017 Blood Sugar Diagnostic (Onetouch Ultra Test) strip Start: 09-22-2017 End: 09-22-2017 Blood Sugar Diagnostic (Onetouch Ultra Test) strip Start: 09-22-2017 End: 02-12-2018 Blood Sugar Diagnostic (Onetouch Ultra Test) strip Start: 08-16-2021 End: 09-13-2022 Blood Sugar Diagnostic (Onetouch Ultra Test) strip Start: 09-13-2022 End: 05-20-2023 Blood Sugar Diagnostic (Onetouch Ultra Test) strip Start: 05-20-2023 End: 04-09-2024 Insulin Syringe-Needle U-100 (Bd Insulin Syringe Ultra-Fine) 0.3 mL 31 gauge x 5/16 syringe Start: 07-17-2017 End: 07-17-2017 Pen Needle, Diabetic (Bd Ultra-Fine Christy Pen Needle) 32 gauge x 5/32 needle Start: 04-11-2022 End: 05-05-2023 Pen Needle, Diabetic (Bd Ultra-Fine Christy Pen Needle) 32 gauge x 5/32 needle Start: 05-05-2023 End: 06-14-2024 Blood Sugar Diagnostic (Onetouch Ultra Test) strip Start: 12-18-2020 Blood Sugar Diagnostic (Onetouch Ultra Test) strip Start: 04-09-2024 Insulin Syringe-Needle U-100 (Bd Insulin Syringe Ultra-Fine) 0.3 mL 31 gauge x 5/16 syringe Start: 07-17-2017 Pen Needle, Diabetic (Bd Ultra-Fine Christy Pen Needle) 32 gauge x 5/32 needle Start: 02-19-2018 Pen Needle, Diabetic (Bd Ultra-Fine Christy Pen Needle) 32 gauge x 5/32 needle Start: 06-14-2024 Blood Sugar Diagnostic (Onetouch Ultra Test Strips) strip Start: 02-12-2018 End: 12-18-2020 Blood Sugar Diagnostic (Onetouch Ultra Test) strip Start: 07-15-2017 End: 09-22-2017 Blood Sugar Diagnostic (Onetouch Ultra Test) strip Start: 09-22-2017 End: 09-22-2017 Blood Sugar Diagnostic (Onetouch Ultra Test) strip Start: 09-22-2017 End: 02-12-2018 Blood Sugar Diagnostic (Onetouch Ultra Test) strip Start: 08-16-2021 End: 09-13-2022 Blood Sugar Diagnostic (Onetouch Ultra Test) strip Start: 09-13-2022 End: 05-20-2023 Blood Sugar Diagnostic (Onetouch Ultra Test) strip Start: 05-20-2023 End: 04-09-2024 Insulin Syringe-Needle U-100 (Bd Insulin Syringe Ultra-Fine) 0.3 mL 31 gauge x 5/16 syringe Start: 07-17-2017 End: 07-17-2017 Pen Needle, Diabetic (Bd Ultra-Fine Christy Pen Needle) 32 gauge x 5/32 needle Start: 04-11-2022 End: 05-05-2023 Pen Needle, Diabetic (Bd Ultra-Fine Christy Pen Needle) 32 gauge x 5/32 needle Start: 05-05-2023 End: 06-14-2024 Blood Sugar Diagnostic (Onetouch Ultra Test) strip Start: 12-18-2020 Blood Sugar Diagnostic (Onetouch Ultra Test) strip Start: 04-09-2024 Insulin Syringe-Needle U-100 (Bd Insulin Syringe Ultra-Fine) 0.3 mL 31 gauge x 5/16 syringe Start: 07-17-2017 Pen Needle, Diabetic (Bd Ultra-Fine Christy Pen Needle) 32 gauge x 5/32 needle Start: 02-19-2018 Pen Needle, Diabetic (Bd Ultra-Fine Christy Pen Needle) 32 gauge x 5/32 needle Start: 06-14-2024 Blood Sugar Diagnostic (Onetouch Ultra Test Strips) strip Start: 02-12-2018 End: 12-18-2020 Blood Sugar Diagnostic (Onetouch Ultra Test) strip Start: 07-15-2017 End: 09-22-2017 Blood Sugar Diagnostic (Onetouch Ultra Test) strip Start: 09-22-2017 End: 09-22-2017 Blood Sugar Diagnostic (Onetouch Ultra Test) strip Start: 09-22-2017 End: 02-12-2018 Blood Sugar Diagnostic (Onetouch Ultra Test) strip Start: 08-16-2021 End: 09-13-2022 Blood Sugar Diagnostic (Onetouch Ultra Test) strip Start: 09-13-2022 End: 05-20-2023 Blood Sugar Diagnostic (Onetouch Ultra Test) strip Start: 05-20-2023 End: 04-09-2024 Insulin Syringe-Needle U-100 (Bd Insulin Syringe Ultra-Fine) 0.3 mL 31 gauge x 5/16 syringe Start: 07-17-2017 End: 07-17-2017 Pen Needle, Diabetic (Bd Ultra-Fine Christy Pen Needle) 32 gauge x 5/32 needle Start: 04-11-2022 End: 05-05-2023 Pen Needle, Diabetic (Bd Ultra-Fine Christy Pen Needle) 32 gauge x 5/32 needle Start: 05-05-2023 End: 06-14-2024 Blood Sugar Diagnostic (Onetouch Ultra Test) strip Start: 12-18-2020 Blood Sugar Diagnostic (Onetouch Ultra Test) strip Start: 04-09-2024 Insulin Syringe-Needle U-100 (Bd Insulin Syringe Ultra-Fine) 0.3 mL 31 gauge x 5/16 syringe Start: 07-17-2017 Pen Needle, Diabetic (Bd Ultra-Fine Christy Pen Needle) 32 gauge x 5/32 needle Start: 02-19-2018 Pen Needle, Diabetic (Bd Ultra-Fine Christy Pen Needle) 32 gauge x 5/32 needle Start: 06-14-2024 Blood Sugar Diagnostic (Onetouch Ultra Test Strips) strip Start: 02-12-2018 End: 12-18-2020 Blood Sugar Diagnostic (Onetouch Ultra Test) strip Start: 07-15-2017 End: 09-22-2017 Blood Sugar Diagnostic (Onetouch Ultra Test) strip Start: 09-22-2017 End: 09-22-2017 Blood Sugar Diagnostic (Onetouch Ultra Test) strip Start: 09-22-2017 End: 02-12-2018 Blood Sugar Diagnostic (Onetouch Ultra Test) strip Start: 08-16-2021 End: 09-13-2022 Blood Sugar Diagnostic (Onetouch Ultra Test) strip Start: 09-13-2022 End: 05-20-2023 Blood Sugar Diagnostic (Onetouch Ultra Test) strip Start: 05-20-2023 End: 04-09-2024 Insulin Syringe-Needle U-100 (Bd Insulin Syringe Ultra-Fine) 0.3 mL 31 gauge x 5/16 syringe Start: 07-17-2017 End: 07-17-2017 Pen Needle, Diabetic (Bd Ultra-Fine Christy Pen Needle) 32 gauge x 5/32 needle Start: 04-11-2022 End: 05-05-2023 Pen Needle, Diabetic (Bd Ultra-Fine Christy Pen Needle) 32 gauge x 5/32 needle Start: 05-05-2023 End: 06-14-2024 Blood Sugar Diagnostic (Onetouch Ultra Test) strip Start: 12-18-2020 Blood Sugar Diagnostic (Onetouch Ultra Test) strip Start: 04-09-2024 Insulin Syringe-Needle U-100 (Bd Insulin Syringe Ultra-Fine) 0.3 mL 31 gauge x 5/16 syringe Start: 07-17-2017 Pen Needle, Diabetic (Bd Ultra-Fine Christy Pen Needle) 32 gauge x 5/32 needle Start: 02-19-2018 Pen Needle, Diabetic (Bd Ultra-Fine Christy Pen Needle) 32 gauge x 5/32 needle Start: 06-14-2024 Blood Sugar Diagnostic (Onetouch Ultra Test Strips) strip Start: 02-12-2018 End: 12-18-2020 Blood Sugar Diagnostic (Onetouch Ultra Test) strip Start: 07-15-2017 End: 09-22-2017 Blood Sugar Diagnostic (Onetouch Ultra Test) strip Start: 09-22-2017 End: 09-22-2017 Blood Sugar Diagnostic (Onetouch Ultra Test) strip Start: 09-22-2017 End: 02-12-2018 Blood Sugar Diagnostic (Onetouch Ultra Test) strip Start: 08-16-2021 End: 09-13-2022 Blood Sugar Diagnostic (Onetouch Ultra Test) strip Start: 09-13-2022 End: 05-20-2023 Blood Sugar Diagnostic (Onetouch Ultra Test) strip Start: 05-20-2023 End: 04-09-2024 Insulin Syringe-Needle U-100 (Bd Insulin Syringe Ultra-Fine) 0.3 mL 31 gauge x 5/16 syringe Start: 07-17-2017 End: 07-17-2017 Pen Needle, Diabetic (Bd Ultra-Fine Christy Pen Needle) 32 gauge x 5/32 needle Start: 04-11-2022 End: 05-05-2023 Pen Needle, Diabetic (Bd Ultra-Fine Christy Pen Needle) 32 gauge x 5/32 needle Start: 05-05-2023 End: 06-14-2024 Blood Sugar Diagnostic (Onetouch Ultra Test) strip Start: 12-18-2020 Blood Sugar Diagnostic (Onetouch Ultra Test) strip Start: 04-09-2024 Insulin Syringe-Needle U-100 (Bd Insulin Syringe Ultra-Fine) 0.3 mL 31 gauge x 5/16 syringe Start: 07-17-2017 Pen Needle, Diabetic (Bd Ultra-Fine Christy Pen Needle) 32 gauge x 5/32 needle Start: 02-19-2018 Pen Needle, Diabetic (Bd Ultra-Fine Christy Pen Needle) 32 gauge x 5/32 needle Start: 06-14-2024 Blood Sugar Diagnostic (Onetouch Ultra Test Strips) strip Start: 02-12-2018 End: 12-18-2020 Blood Sugar Diagnostic (Onetouch Ultra Test) strip Start: 07-15-2017 End: 09-22-2017 Blood Sugar Diagnostic (Onetouch Ultra Test) strip Start: 09-22-2017 End: 09-22-2017 Blood Sugar Diagnostic (Onetouch Ultra Test) strip Start: 09-22-2017 End: 02-12-2018 Blood Sugar Diagnostic (Onetouch Ultra Test) strip Start: 08-16-2021 End: 09-13-2022 Blood Sugar Diagnostic (Onetouch Ultra Test) strip Start: 09-13-2022 End: 05-20-2023 Blood Sugar Diagnostic (Onetouch Ultra Test) strip Start: 05-20-2023 End: 04-09-2024 Insulin Syringe-Needle U-100 (Bd Insulin Syringe Ultra-Fine) 0.3 mL 31 gauge x 5/16 syringe Start: 07-17-2017 End: 07-17-2017 Pen Needle, Diabetic (Bd Ultra-Fine Christy Pen Needle) 32 gauge x 5/32 needle Start: 04-11-2022 End: 05-05-2023 Pen Needle, Diabetic (Bd Ultra-Fine Christy Pen Needle) 32 gauge x 5/32 needle Start: 05-05-2023 End: 06-14-2024 Blood Sugar Diagnostic (Onetouch Ultra Test) strip Start: 12-18-2020 Blood Sugar Diagnostic (Onetouch Ultra Test) strip Start: 04-09-2024 Insulin Syringe-Needle U-100 (Bd Insulin Syringe Ultra-Fine) 0.3 mL 31 gauge x 5/16 syringe Start: 07-17-2017 Pen Needle, Diabetic (Bd Ultra-Fine Christy Pen Needle) 32 gauge x 5/32 needle Start: 02-19-2018 Pen Needle, Diabetic (Bd Ultra-Fine Christy Pen Needle) 32 gauge x 5/32 needle Start: 06-14-2024 Blood Sugar Diagnostic (Onetouch Ultra Test Strips) strip Start: 02-12-2018 End: 12-18-2020 Blood Sugar Diagnostic (Onetouch Ultra Test) strip Start: 07-15-2017 End: 09-22-2017 Blood Sugar Diagnostic (Onetouch Ultra Test) strip Start: 09-22-2017 End: 09-22-2017 Blood Sugar Diagnostic (Onetouch Ultra Test) strip Start: 09-22-2017 End: 02-12-2018 Blood Sugar Diagnostic (Onetouch Ultra Test) strip Start: 08-16-2021 End: 09-13-2022 Blood Sugar Diagnostic (Onetouch Ultra Test) strip Start: 09-13-2022 End: 05-20-2023 Blood Sugar Diagnostic (Onetouch Ultra Test) strip Start: 05-20-2023 End: 04-09-2024 Insulin Syringe-Needle U-100 (Bd Insulin Syringe Ultra-Fine) 0.3 mL 31 gauge x 5/16 syringe Start: 07-17-2017 End: 07-17-2017 Pen Needle, Diabetic (Bd Ultra-Fine Christy Pen Needle) 32 gauge x 5/32 needle Start: 04-11-2022 End: 05-05-2023 Pen Needle, Diabetic (Bd Ultra-Fine Christy Pen Needle) 32 gauge x 5/32 needle Start: 05-05-2023 End: 06-14-2024 Clinical Notes 03-13-2018 to 12-24-2024 Jacquie Carrillo MD - 12/17/2024 11:25 AM EDT Note Date & Type Note Facility 12-24-2024 Note Sinus Rhythm -First degree A-V block Wesley = 234 -Poor R-wave progression Low voltage ABNORMAL [facility] 12-24-2024 Note Sinus Rhythm -First degree A-V block Wesley = 234 -Poor R-wave progression Low voltage ABNORMAL [facility] 12-17-2024 Note OFFICE CONSULTATION NOTE [facility] [address] ([address]) [facility] [address] [facility] [id number] Physicians: Ramón Coulter MD (Family); No ref. provider found (Referring) Subjective: Carolyn Cintron is a 79 y.o. female seen in the office today for No chief complaint on file. . HPI patient is for arthroscopy of the shoulder. 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 Has mild palpitations in the morning. Patient is able to walk half mile to her mailbox and back she does her own vacuuming and moves furniture. Medications of interest aspirin 81 mg a day, fenofibrate 134 mg a day, Lasix 20 mg a day, insulin. Isosorbide 30 mg a day, lisinopril 10 mg a day, metoprolol XL 25 a day Assessment/Plan no cardiac issues need addressing ECG: First-degree AV block poor R wave progression Reviewed personally Stress nuclear scan 03/15/2021 1. Normal exercise stress SPECT myocardial perfusion imaging study. 2. Normal electrocardiographic stress test. Adequate workload achieved. Normal hemodynamic response to exercise. No chest discomfort. No arrhythmias with exercise. No evidence of ischemia by EKG criteria. 3. Average exercise tolerance for age. 4. There is a brief run of SVT with no associated symptoms noted. 5. Intermediate risk (-11 < Garcia score < 5). 6. Overall left ventricular systolic function was normal without regional wall motion abnormalities. Gated SPECT imaging reveals normal myocardial wall thickening. Post stress left ventricular ejection fraction is normal, 80 %. Left ventricular cavity size is normal. 7. The stress nuclear myocardial perfusion imaging was normal. No resting imaging was performed. 8. SPECT images demonstrate homogeneous tracer distribution throughout the myocardium. No problem-specific Assessment & Plan notes found for this encounter. Follow Up Ordered: No follow-ups on file. Patient's Medications New Prescriptions No medications on file Previous Medications ALLOPURINOL (ZYLOPRIM) 300 MG TABLET Take 1 (one) tablet (300 mg total) by mouth daily . ASPIRIN 81 MG EC TABLET Take 1 (one) tablet (81 mg total) by mouth daily . BLOOD SUGAR DIAGNOSTIC (GLUCOSE BLOOD) STRIPS Use to test 6 times per day. DG code E11.65. Use what coordinates with pt meter. . BLOOD SUGAR DIAGNOSTIC (ONETOUCH ULTRA BLUE TEST STRIP) STRIPS One touch ultra blue strips - use to check BG 6x a day.DX code E11.65 . BLOOD SUGAR DIAGNOSTIC (ONETOUCH VERIO TEST STRIPS) STRIPS USe to check BG 4x daily, DX code E11.65 insulin used . BLOOD SUGAR DIAGNOSTIC (ONETOUCH VERIO) STRIPS Use as directed 6 times/day One Touch Verio strips . CHOLECALCIFEROL, VITAMIN D3, 25 MCG (1,000 UNIT) CAPSULE Take 1 (one) capsule (1,000 Units total) by mouth 2 (two) times a day . CYANOCOBALAMIN (B-12) 1000 MCG TABLET Take 1 (one) tablet (1,000 mcg total) by mouth daily . FENOFIBRATE MICRONIZED (LOFIBRA) 134 MG CAPSULE TAKE 1 CAPSULE BY MOUTH DAILY. TAKE WITH FOOD. FLUTICASONE (FLONASE) 50 MCG/ACTUATION NASAL SPRAY Instill 1 (one) spray into each nostril daily . FUROSEMIDE (LASIX) 20 MG TABLET Take 1 (one) tablet (20 mg total) by mouth every other day . INSULIN DEGLUDEC (TRESIBA FLEXTOUCH U-200) 200 UNIT/ML (3 ML) INPN Inject 55 (fifty five) Units under the skin daily . ISOSORBIDE MONONITRATE (IMDUR) 30 MG 24 HR TABLET Take 1 (one) tablet (30 mg total) by mouth daily . KLOR-CON M20 20 MEQ TABLET Take 1 (one) tablet (20 mEq total) by mouth every other day . LEVOTHYROXINE (SYNTHROID, LEVOTHROID) 112 MCG TABLET Take 1 (one) tablet (112 mcg total) by mouth once daily . LISINOPRIL (PRINIVIL,ZESTRIL) 10 MG TABLET Take 1 (one) tablet (10 mg total) by mouth daily . LORATADINE (CLARITIN LIQUI-GEL) 10 MG CAP Take 1 (one) capsule (10 mg total) by mouth daily . MELOXICAM (MOBIC) 15 MG TABLET Take 1 (one) tablet (15 mg total) by mouth daily . METOPROLOL SUCCINATE (TOPROL XL) 25 MG 24 HR TABLET Take 1 (one) tablet (25 mg total) by mouth daily . MONTELUKAST (SINGULAIR) 10 MG TABLET Take 1 (one) tablet (10 mg total) by mouth daily . NOVOLIN N NPH U-100 INSULIN 100 UNIT/ML INJECTION Use as directed twice daily, approx 85 units daily (Needs Reli-[employer] brand) . NOVOLIN R REGULAR U-100 INSULN 100 UNIT/ML INJECTION USE DIRECTED THREE TIMES DAILY INJECTING UP TO 80 UNITS PER DAY . OMEGA-3 FATTY ACIDS-FISH OIL ORAL Take 1 g by mouth 2 (two) times a day . PANTOPRAZOLE (PROTONIX) 40 MG TABLET Take 1 (one) tablet (40 mg total) by mouth daily . ROSUVASTATIN (CRESTOR) 20 MG TABLET Take 1 (one) tablet (20 mg total) by mouth daily . THERAPEUTIC MULTIVITAMIN (THERAGRAN) TABLET Take 1 (one) tablet by mouth daily . TRAZODONE (DESYREL) 50 MG TABL (more content not included)... [facility] 12-17-2024 History of Present illness Narrative OFFICE CONSULTATION NOTE [facility] [address] ([address]) [facility] [address] [facility] [address] Physicians: Ramón Coulter MD (Family); No ref. provider found (Referring) Subjective: Carolyn Cintron is a 79 y.o. female seen in the office today for No chief complaint on file. . HPI patient is for arthroscopy of the shoulder. 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 Has mild palpitations in the morning. Patient is able to walk half mile to her mailbox and back she does her own vacuuming and moves furniture. Medications of interest aspirin 81 mg a day, fenofibrate 134 mg a day, Lasix 20 mg a day, insulin. Isosorbide 30 mg a day, lisinopril 10 mg a day, metoprolol XL 25 a day Assessment/Plan no cardiac issues need addressing ECG: First-degree AV block poor R wave progression Reviewed personally Stress nuclear scan 03/15/2021 1. Normal exercise stress SPECT myocardial perfusion imaging study. 2. Normal electrocardiographic stress test. Adequate workload achieved. Normal hemodynamic response to exercise. No chest discomfort. No arrhythmias with exercise. No evidence of ischemia by EKG criteria. 3. Average exercise tolerance for age. 4. There is a brief run of SVT with no associated symptoms noted. 5. Intermediate risk (-11 < Garcia score < 5). 6. Overall left ventricular systolic function was normal without regional wall motion abnormalities. Gated SPECT imaging reveals normal myocardial wall thickening. Post stress left ventricular ejection fraction is normal, 80 %. Left ventricular cavity size is normal. 7. The stress nuclear myocardial perfusion imaging was normal. No resting imaging was performed. 8. SPECT images demonstrate homogeneous tracer distribution throughout the myocardium. No problem-specific Assessment & Plan notes found for this encounter. Follow Up Ordered: No follow-ups on file. Patient's Medications New Prescriptions No medications on file Previous Medications ALLOPURINOL (ZYLOPRIM) 300 MG TABLET Take 1 (one) tablet (300 mg total) by mouth daily . ASPIRIN 81 MG EC TABLET Take 1 (one) tablet (81 mg total) by mouth daily . BLOOD SUGAR DIAGNOSTIC (GLUCOSE BLOOD) STRIPS Use to test 6 times per day. DG code E11.65. Use what coordinates with pt meter. . BLOOD SUGAR DIAGNOSTIC (ONETOUCH ULTRA BLUE TEST STRIP) STRIPS One touch ultra blue strips - use to check BG 6x a day.DX code E11.65 . BLOOD SUGAR DIAGNOSTIC (ONETOUCH VERIO TEST STRIPS) STRIPS USe to check BG 4x daily, DX code E11.65 insulin used . BLOOD SUGAR DIAGNOSTIC (ONETOUCH VERIO) STRIPS Use as directed 6 times/day One Touch Verio strips . CHOLECALCIFEROL, VITAMIN D3, 25 MCG (1,000 UNIT) CAPSULE Take 1 (one) capsule (1,000 Units total) by mouth 2 (two) times a day . CYANOCOBALAMIN (B-12) 1000 MCG TABLET Take 1 (one) tablet (1,000 mcg total) by mouth daily . FENOFIBRATE MICRONIZED (LOFIBRA) 134 MG CAPSULE TAKE 1 CAPSULE BY MOUTH DAILY. TAKE WITH FOOD. FLUTICASONE (FLONASE) 50 MCG/ACTUATION NASAL SPRAY Instill 1 (one) spray into each nostril daily . FUROSEMIDE (LASIX) 20 MG TABLET Take 1 (one) tablet (20 mg total) by mouth every other day . INSULIN DEGLUDEC (TRESIBA FLEXTOUCH U-200) 200 UNIT/ML (3 ML) INPN Inject 55 (fifty five) Units under the skin daily . ISOSORBIDE MONONITRATE (IMDUR) 30 MG 24 HR TABLET Take 1 (one) tablet (30 mg total) by mouth daily . KLOR-CON M20 20 MEQ TABLET Take 1 (one) tablet (20 mEq total) by mouth every other day . LEVOTHYROXINE (SYNTHROID, LEVOTHROID) 112 MCG TABLET Take 1 (one) tablet (112 mcg total) by mouth once daily . LISINOPRIL (PRINIVIL,ZESTRIL) 10 MG TABLET Take 1 (one) tablet (10 mg total) by mouth daily . LORATADINE (CLARITIN LIQUI-GEL) 10 MG CAP Take 1 (one) capsule (10 mg total) by mouth daily . MELOXICAM (MOBIC) 15 MG TABLET Take 1 (one) tablet (15 mg total) by mouth daily . METOPROLOL SUCCINATE (TOPROL XL) 25 MG 24 HR TABLET Take 1 (one) tablet (25 mg total) by mouth daily . MONTELUKAST (SINGULAIR) 10 MG TABLET Take 1 (one) tablet (10 mg total) by mouth daily . NOVOLIN N NPH U-100 INSULIN 100 UNIT/ML INJECTION Use as directed twice daily, approx 85 units daily (Needs Reli-[employer] brand) . NOVOLIN R REGULAR U-100 INSULN 100 UNIT/ML INJECTION USE DIRECTED THREE TIMES DAILY INJECTING UP TO 80 UNITS PER DAY . OMEGA-3 FATTY ACIDS-FISH OIL ORAL Take 1 g by mouth 2 (two) times a day . PANTOPRAZOLE (PROTONIX) 40 MG TABLET Take 1 (one) tablet (40 mg total) by mouth daily . ROSUVASTATIN (CRESTOR) 20 MG TABLET Take 1 (one) tablet (20 mg total) by mouth daily . THERAPEUTIC MULTIVITAMIN (THERAGRAN) TABLET Take 1 (one) tablet by mouth daily . TRAZODONE (DESYREL) 50 MG TABLET Take by mouth nightly as needed for sleep. Modified Medications No medications on file Discontinued Medications No medications on file Histories: Past Medical History: Diagnosis Date Asthma Diabetes mellitus (HCC) Gout High cholesterol 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 Hypothyroid Shigella dysentery Skin cancer Past Surgical History: Procedure Laterality Date CARPAL TUNNEL RELEASE Bilateral CHOLECYSTECTOMY 1993 COLONOSCOPY 1998 LAMINECTOMY DISC LUMBAR SINGLE LEVEL 10/15/2011 SKIN CANCER EXCISION 03/08/2021 left shoulder/Right cheek GABO/BSO 1979 TOTAL KNEE ARTHROPLASTY Bilateral UMBILICAL HERNIA REPAIR Family History Problem Relation Age of Onset Diabetes Mother Heart disease Mother Colon cancer Father Diabetes Sister Heart disease Sister Diabetes Brother Diabetes Son Diabetes Brother Heart disease Brother Diabetes Sister Heart disease Sister Diabetes Sister Social History[1] Allergies[2] Review of Systems Constitutional: Negative. HENT: Negative. Eyes: Negative. Cardiovascular: Negative for palpitations. Respiratory: Negative. Endocrine: Negative. Skin: Negative. Musculoskeletal: Negative. Gastrointestinal: Negative. Genitourinary: Negative. Neurological: Negative. Psychiatric/Behavioral: Negative. All other systems reviewed and are negative. Overview of Problems Addressed: No problems updated. Objective: Vitals: There were no vitals taken for this visit. Physical Exam Constitutional: Appearance: Normal appearance. HENT: Head: Normocephalic and atraumatic. Nose: Nose normal. Eyes: Extraocular Movements: Extraocular movements intact. Pupils: Pupils are equal, round, and reactive to light. Cardiovascular: Rate and Rhythm: Normal rate and regular rhythm. Pulses: Normal pulses. Heart sounds: Normal heart sounds. Pulmonary: Effort: Pulmonary effort is normal. Breath sounds: Normal breath sounds. Abdominal: General: Abdomen is flat. Bowel sounds are normal. Palpations: Abdomen is soft. Musculoskeletal: General: Normal range of motion. Cervical back: Normal range of motion and neck supple. Skin: General: Skin is warm and dry. Neurological: General: No focal deficit present. Mental Status: She is alert and oriented to person, place, and time. Mental status is at baseline. 1. Coronary artery disease involving [place] coronary artery of [place] heart without angina pectoris Jacquie Carrillo MD 12/17/2024 [1] Social History Tobacco Use Smoking status: Never Passive exposure: Never Smokeless tobacco: Never Vaping Use Vaping status: Never Used Substance Use Topics Alcohol use: No Drug use: No [2] Allergies Allergen Reactions Atorvastatin Other (See Comments) Exenatide Other (See Comments) Other reaction(s): Intolerance pancreatitis, though managed as outpatient pancreatitis, though managed as outpatient Penicillins Diarrhea C.Diff Keflex [Cephalexin] GI Intolerance Lovastatin Other (See Comments) Sulfa (Sulfonamide Antibiotics) Unknown When patient had surgery, surgeon stated she had an allergic reaction to sulfa. No further information available from patient. documented in this encounter [facility] 10-21-2024 Radiology Diagnostic study note [facility] [address] [place] [address] Extremity Upper without Contra MR#: [id number] Acct: [id number] Name: CAROLYN CINTRON Rep #: [id number] : 1945 F [id number] From: Brian Strickland MD PCP: Dr. Ramón Coulter MD Status: REG CLI Study:Extremity Upper without Contra Date of Exam: 10/20/24 Exam# [id number] Ordering Dr: Chris Martel MD PROCEDURE: EXTREMITY UPPER WITHOUT CONTRA 10/20/2024 REASON FOR EXAM: SURGICAL PLANNING FOR RTSA / BLUEPRINT CUTS TECHNIQUE: Axial CT images of the right shoulder obtained without intravenous contrast. Coronal and Sagittal reconstruction series were provided. One or more dose reduction techniques were used (e.g., Automated exposure control, adjustment of the mA and/or kV according to patient size, use of iterative reconstruction technique RADIATION DOSE SUMMARY: CTDlvol: 23 mGy DLP: 544 mGycm COMPARISON: Radiographs on 09/27/2024. FINDINGS: Mild osteopenia of the visualized bones. Chronic deformities of the humeral head and neck secondary to healed fractures. Moderate to severe degenerative joint disease of the acromioclavicular and glenohumeral joints. Elevation of the humeral head with narrowing of the subacromial space, probably secondary to chronic rotator cuff tendons tears. Moderate chronic atrophy of the supraspinatus muscle. No lytic or blastic aggressive bone lesion is identified. CT/Extremity Upper without Contra IMPRESSION: 1. No CT evidence of an acute abnormality. 2. Moderate to severe degenerative joint disease of the acromioclavicular and glenohumeral joints. Reading Location: [place] [address] CC: Dr. Ramón Coulter MD; Dr. Chris Martel MD ~ Care Management Coordinator: Signed [facility] 09-20-2024 Evaluation note Diagnosis Onset Date Resolution Hypertriglyceridemia acute Tony h 2024 1:18pm Controlled type 2 diabetes mellitus, with long-term current use of insulin chronic September 1:18pm 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, essential chronic M arch 2024 1:18pm Hypothyroidism (acquired) chronic September 20, 2024 1:18pm Kidney disease, chronic, stage III (GFR 30-59 ml/min) chronic September 20, 2024 1:18pm Chronic low back pain noneactive Mar ch 2024 1:18pm Osteoporosis noneactive September 20, 2024 1:18pm Anxiety and depression noneactive Ma rc 2024 1:18pm Chronic right shoulder pain noneacti ve September 20, 2024 1:18pm Numbness and tingling in right hand noneactive September 20, 2024 1:18pm Right shoulder pain acute September 27, 2024 1:10pm Secondary osteoarthritis, right shoulder acute September 27, 2024 1:10pm Hypertriglyceridemia acute Apri l 2024 1:14pm Controlled type 2 diabetes mellitus, with long-term current use of insulin chronic October 1:14pm 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, essential chronic A pril 2024 1:14pm Hypothyroidism (acquired) chronic October 13, 2024 1:14pm Kidney disease, chronic, stage III (GFR 30-59 ml/min) chronic October 13, 2024 1:14pm Chronic low back pain noneactive Apr il 2024 1:14pm Osteoporosis noneactive October 13 1:14pm Chronic insomnia noneactive October 1:14pm Anxiety and depression noneactive Ap ril 2024 1:14pm Chronic right shoulder pain noneacti ve October 13, 2024 1:14pm GERD (gastroesophageal reflux disease) noneactive October 13, 2024 1:14pm Controlled type 2 diabetes mellitus, with long-term current use of insulin chronic October 11:15am Hyperlipidemia due to type 2 diabetes mellitus chronic November 02, 2024 11:15am 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, essential chronic A pril 2024 11:15am Hypothyroidism (acquired) chronic November 02, 2024 11:15am Kidney disease, chronic, stage III (GFR 30-59 ml/min) chronic November 02, 2024 11:15am Obesity chronic November 02 11:15am Polyneuropathy due to type 2 diabetes mellitus chronic November 02, 2024 11:15am Right shoulder pain acute November [id number] 1:09pm Secondary osteoarthritis, right shoulder acute November 08, 2024 1:09pm [facility] Work Phone: 1(340) 801-429103-17-2025 Evaluation note* Diagnosis Onset Date Resolution Status Admit Date Hypertriglyceridemia acute Tony h 2024 1:18pm Controlled type 2 diabetes mellitus, with long-term current use of insulin chronic September 20, 2024 1:18pm 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, essential chronic M arch 2024 1:18pm Hypothyroidism (acquired) chronic September 20, 2024 1:18pm Kidney disease, chronic, sta ge III (GFR 30-59 ml/min) chronic September 20 2 025 1:18pm Chronic low back pain noneactive Mar ch 2024 1:18pm Osteoporosis noneactive September 20, 2024 1:18pm Anxiety and depression noneactive Ma rch 2024 1:18pm Chronic right shoulder pain noneacti ve September 20, 2024 1:18pm Numbness and tingling in rig ht hand noneactive September 20, 2024 1:18pm Right shoulder pain acute September 27, 2024 1:10pm Secondary osteoarthritis, ri ght shoulder acute September 27, 2024 1:10pm Hypertriglyceridemia acute Apri l 2024 1:14pm Controlled type 2 diabetes mellitus, with long-term current use of insulin chronic October 13, 2024 1:14pm 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, essential chronic A pril 2024 1:14pm Hypothyroidism (acquired) chronic October 13, 2024 1:14pm Kidney disease, chronic, sta ge III (GFR 30-59 ml/min) chronic October 13 1:14pm Chronic low back pain noneactive Apr il 2024 1:14pm Osteoporosis noneactive October 13, 2 025 1:14pm Chronic insomnia noneactive October 1:14pm Anxiety and depression noneactive Ap ril 2024 1:14pm Chronic right shoulder pain noneacti ve October 13, 2024 1:14pm GERD (gastroesophageal reflu x disease) noneactive October 13, 2024 1:14pm Controlled type 2 diabetes mellitus, with long-term current use of insulin chronic November 02, 2024 11:15am Hyperlipidemia due to type 2 diabetes mellitus chronic November 02 11:15am 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, essential chronic A pril 2024 11:15am Hypothyroidism (acquired) chronic November 02, 2024 11:15am Kidney disease, chronic, sta ge III (GFR 30-59 ml/min) chronic November 02, 2 025 11:15am Obesity chronic November 02 11:15am Polyneuropathy due to type 2 diabetes mellitus chronic November 02 11:15am Right shoulder pain acute November [id number] 1:09pm Secondary osteoarthritis, ri ght shoulder acute November 08, 2024 1:09pm Acute upper respiratory infection ac [place] December 10, 2024 9:50am [facility] Work Phone: 1(792) 431-975603-17-2025 Evaluation note* Diagnosis Onset Date Resolution Status Admit Date Hypertriglyceridemia acute Tony h 2024 1:18pm Controlled type 2 diabetes mellitus, with long-term current use of insulin chronic September 20, 2024 1:18pm 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, essential chronic M arch 2024 1:18pm Hypothyroidism (acquired) chronic September 20, 2024 1:18pm Kidney disease, chronic, sta ge III (GFR 30-59 ml/min) chronic September 20, 2 025 1:18pm Chronic low back pain noneactive Mar ch 2024 1:18pm Osteoporosis noneactive September 20, 2024 1:18pm Anxiety and depression noneactive [facility] 2024 1:18pm Chronic right shoulder pain noneacti ve September 20, 2024 1:18pm Numbness and tingling in rig ht hand noneactive September 20, 2024 1:18pm Right shoulder pain acute September 27, 2024 1:10pm Secondary osteoarthritis, ri ght shoulder acute September 27, 2024 1:10pm Hypertriglyceridemia acute Apri l 2024 1:14pm Controlled type 2 diabetes mellitus, with long-term current use of insulin chronic October 13, 2024 1:14pm 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, essential chronic A pril 2024 1:14pm Hypothyroidism (acquired) chronic October 13, 2024 1:14pm Kidney disease, chronic, sta ge III (GFR 30-59 ml/min) chronic October 13 1:14pm Chronic low back pain noneactive Apr il 2024 1:14pm Osteoporosis noneactive October 13 025 1:14pm Chronic insomnia noneactive October 1:14pm Anxiety and depression noneactive Ap ril 2024 1:14pm Chronic right shoulder pain noneacti ve October 13, 2024 1:14pm GERD (gastroesophageal reflu x disease) noneactive October 13, 2024 1:14pm Controlled type 2 diabetes mellitus, with long-term current use of insulin chronic November 02, 2024 11:15am Hyperlipidemia due to type 2 diabetes mellitus chronic November 02 11:15am 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, essential chronic A pril 2024 11:15am Hypothyroidism (acquired) chronic November 02, 2024 11:15am Kidney disease, chronic, sta ge III (GFR 30-59 ml/min) chronic November 02 025 11:15am Obesity chronic November 02 11:15am Polyneuropathy due to type 2 diabetes mellitus chronic November 02 11:15am Right shoulder pain acute November 082024 1:09pm Secondary osteoarthritis, ri ght shoulder acute November 08, 2024 1:09pm Acute upper respiratory infection ac [place] December 02, 2024 12:44pm Acute upper respiratory infection ac [place] December 10, 2024 9:50am [place] [employer] Work Phone: [phone] Note2v right femur show the nail remains in good position. The fracture is well-aligned and remains unchanged from prior films. The fracture is showing appropriate progressive callus formation and fracture line consolidation.[facility]03-13-2025 History of Present illness Narrative* Mika Uribe MD - 09/16/2024 11:20 AM EDT Subjective: Carolyn is approximatley 3 months post op from retrograde right femoral nail for extra-articular distal femur fracture. Overall pain is mild. Knee pain is mild. She denies new numbness or tingling since surgery. She has notes increased right shoulder pain since her fall. She does have a history of fracture butstates her arm moved reasonably well despite PT working on it, this has not improved and is persistently painful. She also notes some numbness and altered sensation in the right ring and small fingers. Review of Systems Objective: Ht 5' 2.5 (1.588 m) Wt 189 lb (85.7 kg) BMI 34.02 kg/m Knee ROM is basically full and nonpainful. Shoulder is a very poor active forward flexion with poorcuff strength. She has altered sensation in the small and ring fingers subjectively. No motor dysfunction of the ulnar nerve. No clawing. XRAYS: 2v right femur show the nail remains in good position. The fracture is well-aligned and remains unchanged from prior films. The fracture is showing appropriate progressive callus formation andfracture line consolidation. 2 views right humerus show a old healed proximal humerus fracture. Assessment 1. Closed fracture of distal end of right femur, unspecified fracture morphology, initial encounter([facility]) 2. Right arm pain 3. Ulnar neuritis, right Plan Orders Placed This Encounter Procedures XR humerus right Her femur is healed and doing well. I am concerned she may have a rotator cuff tear and she seems to be having some ulnar neuritis/cubital tunnel syndrome. I discussed referral to hand surgery appearan MRI but she is from far away and wants to discuss this with her PCP to see if there orthopedic surgeons close to home that she can see for these other issues. She will call and let us know if she would like to have the MRI done or see one of our partners regarding her ulnar nerve. Follow up if symptoms worsen or fail to improve.. For any future visits we will obtain 2v femur. Electronically signed by Mika Uribe M.D. 09/16/2024 at 1:42 PM. documented in this [facility]01-09-2025 Evaluation note* Diagnosis Onset Date Resolution Status Admit Date Hypertriglyceridemia acute 2024 12:43pm Controlled type 2 diabetes mellitus, with long-term current use of insulin chronic July 15 12:43pm 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, essential chronic J anuary 2024 12:43pm Hypothyroidism (acquired) chronic July 15, 2024 12:43pm Kidney disease, chronic, sta ge III (GFR 30-59 ml/min) chronic July 152024 12:43pm C. difficile colitis noneactive 2024 12:43pm Femur fracture noneactive July 12:43pm Chronic low back pain noneactive Harish brownlee 2024 12:43pm Osteoporosis noneactive July 15, 2024 12:43pm Anxiety and depression noneactive Germain wood 2024 12:43pm Numbness and tingling in rig ht hand noneactive July 15 12:43pm Hypertriglyceridemia acute Tony h 2024 1:18pm Controlled type 2 diabetes mellitus, with long-term current use of insulin chronic September 20, 2024 1:18pm 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, essential chronic M arch 2024 1:18pm Hypothyroidism (acquired) chronic September 20, 2024 1:18pm Kidney disease, chronic, sta ge III (GFR 30-59 ml/min) chronic September 1:18pm Chronic low back pain noneactive Mar 2024 1:18pm Osteoporosis noneactive September 20, 2024 1:18pm Anxiety and depression noneactive Ma rc 2024 1:18pm Chronic right shoulder pain noneacti ve September 20, 2024 1:18pm Numbness and tingling in rig ht hand noneactive September 20, 2024 1:18pm Right shoulder pain acute September 27, 2024 1:10pm Secondary osteoarthritis, ri ght shoulder acute September 27, 2024 1:10pm Hypertriglyceridemia acute Apri l 2024 1:14pm Controlled type 2 diabetes mellitus, with long-term current use of insulin chronic October 13, 2024 1:14pm 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, essential chronic A pril 2024 1:14pm Hypothyroidism (acquired) chronic October 13, 2024 1:14pm Kidney disease, chronic, sta ge III (GFR 30-59 ml/min) chronic October 1:14pm Chronic low back pain noneactive Apr il 2024 1:14pm Osteoporosis noneactive October 13, 1:14pm Chronic insomnia noneactive October 1:14pm Anxiety and depression noneactive Ap ril 2024 1:14pm Chronic right shoulder pain noneacti ve October 13, 2024 1:14pm GERD (gastroesophageal reflu x disease) noneactive October 13, 2024 1:14pm [facility] Work Phone: [phone]) 668-978201-07-2025 History of Present illness Narrative* Mika Uribe MD - 07/13/2024 11:30 AM EST Subjective: Carolyn is approximately 3 weeks post op from IMN right femur fracture. Overall pain is mild. Knee pain is mild. She denies new numbness or tingling since surgery. She states she puts full weight on her leg with minimal difficulty. Review of Systems Objective: Ht 5' 2.5 (1.588 m) Wt 189 lb (85.7 kg) BMI 34.02 kg/m All incisions are healing appropriately. Knee ROM shows flexion is 100 and extension is 10. Swelling: moderate. Sensation normal to all distal dermatomes. XRAYS: 2v right femur show the nail remains in good position. The fracture is well-aligned and remains unchanged from immediate post-op films. Early callus is already seen. Assessment 1. Closed fracture of distal end of right femur, unspecified fracture morphology, initial encounter([facility]) Plan No orders of the defined types were placed in this encounter. Carolyn will remain WBAT and focus on aggressive ROM of hip and knee and edema control. I'll see her back in 2 months with 2v femur. Electronically signed by Mika Uribe M.D. 07/13/2024 at 12:35 PM. documented in this [facility]12-19-2024 Telephone encounter Note* Telephone Encounter - Lenka Avila - 06/24/2024 9:20 AM EST Name of caller: Gonzalez shelby/ [facility] Contact phone number: [phone] Relationship to Patient: Home Care Provider: Dr. Uribe Practice: Ortho Chief Complaint/Reason for Call: They received referral for home care, patient is already using a different company. FYI Best time of day caller can be reached: any Patient advised that office/PCP has 24-48 business hours to return their call: N/A [id number] Miscellaneous Notes* Telephone Encounter - Lenka Avila - 06/24/2024 9:20 AM EST Name of caller: Gonzalez ryan/ [facility] Contact phone number: [phone] Relationship to Patient: Home Care Provider: Dr. Uribe Practice: Ortho Chief Complaint/Reason for Call: They received referral for home care, patient is already using a different company. FYI Best time of day caller can be reached: any Patient advised that office/PCP has 24-48 business hours to return their call: N/A documented in this [facility]12-16-2024 Nurse Note* Ryann Wellington RN - 06/21/2024 2:36 PM EST Discharge instructions provided to patient and family at bedside. Medications reviewed, with lovenox teaching, and incision site care instructions provided. Verbal understanding by patient with no further questions at this time. Dressing supplies offered but patient declined stating she has some athome. IV removed and transport placed for discharge exit. [id number] Nurse Note* Ryann Wellington RN - 06/21/2024 2:36 PM EST Discharge instructions provided to patient and family at bedside. Medications reviewed, with lovenox teaching, and incision site care instructions provided. Verbal understanding by patient with no further questions at this time. Dressing supplies offered but patient declined stating she has some athome. IV removed and transport placed for discharge exit. documented in this [facility]12-16-2024 Miscellaneous Notes* Care Coordination - Unknown Case Management - 06/21/2024 1:50 PM EST Patient Choice Patient Name: CAROLYN CINTRON Date of : 1945 All Providers Sent Referral Name: [facility] Phone: [phone] Address: [address] [place] [address] Name: [facility] Address: [address] [place] [address] Name: [facility] Address: [address] [place] [address] Name: [facility]ish Mcdowell[facility] Phone: [phone] Address: [address] [facility] [address] [place] [address] Name: [facility] Phone: [phone] Address: [address] [place] [address] Name: [facility] Address: [address] [place] [address] Name: [facility] [place] [facility] Phone: [phone] Address: [address] [place] [address] Name: [facility] Address: [address] [place] [address] [address] [place] [address] Name: [facility] ([facility] Offices) Phone: [phone] Address: [address] [address] Name: [facility] Address: [address] [place] [address] [address] [place] [address] Name: [facility] (For [facility] Facilities Only) Phone: [phone] Address: [address] [place] [address] Name: [facility] Address: [address] [place] [address] Name: [facility] Address: [address] [place] [address] * Home Care - [facility] - 06/21/2024 1:46 PM EST Spoke to [facility] . They are able to accept patient for home PT--agency states they called and spoke with patient, explained that she may not get 3 times a week but they would try if the PT deemed necessary. Patient agreeable to go with this agency. [facility] order and updated PT notes sent to agency via [employer]. Agency states they will start her services on Friday of this week. * Home Care - [facility] - 06/21/2024 1:07 PM EST BSC ordered per PT request. [facility] notified of order and discharge order in. * Home Care - [facility] - 06/21/2024 12:22 PM EST [facility] is able to accept patient for home PT. Spoke with patient to update her on this and she states she only is agreeable to go with this agency if they will come work with her AT LEAST 3 days a week. [facility] explained to patient that it is not typical for even 3days a week for home care to be seen, and her visits are usually determined by her evaluation by the PT that sees her. Pt states her sister called [facility] and they state they are able to accommodate 3 or more days a week. Referral has already been sent to this agency with no response via careport. [facility] placed phone call to [facility], spoke with ken, who states they are typically not able to see patients 3 or more days a week either and visits are also determined by the PT's evaluation. [facility] asked that agency review her referral and requested a callbackwith ability to accept patient or not. Will update patient with response. * Care Coordination - Marlen Moon RN - 06/21/2024 10:29 AM EST Care Management Progress Note PT eval- Home with Home health PT, 24 hour supervision or assist Equipment Needed: Yes Other: Bedside commode -discussed with patient- home care is not able to find an agency in her area- agreed to review SNF list- SNF list given with explanation of medicare star ratings and the [facility] collaborative list. Enc to select 3-4 facilities- will follow up later today. Msg sent to OT need updated OT eval for poss SNF auth Follow up on above- she is declining SNF- home improvement contractor able to find an agency- liaison notified of need for BSC- patient states sister able to assist when son is working * Home Care - [facility] - 06/21/2024 8:50 AM EST Currently there are no accepting agencies for Home PT. Referral resent to agencies that have not responded via careport and 3 new referral sent. [facility] will continue to follow. * Care Penny - Ellis Jimenez RN - 06/21/2024 6:13 AM EST Problem: Pain - Adult Goal: Verbalizes/displays adequate comfort level or baseline comfort level Outcome: Progressing Problem: Safety - Adult Goal: Free from fall injury Outcome: Progressing Problem: Discharge Planning Goal: Discharge to home or other facility with appropriate resources Outcome: Progressing Problem: Chronic Conditions and Co-morbidities Goal: Patient's chronic conditions and co-morbidity symptoms are monitored and maintained or improved Outcome: Progressing Problem: Musculoskeletal - Adult Goal: Return mobility to safest level of function Outcome: Progressing Goal: Maintain proper alignment of affected body part Outcome: Progressing Goal: Return ADL status to a safe level of function Outcome: Progressing * Care Plan - Ellis Jimenez RN - 06/20/2024 5:49 AM EST Problem: Pain - Adult Goal: Verbalizes/displays adequate comfort level or baseline comfort level Outcome: Progressing Problem: Safety - Adult Goal: Free from fall injury Outcome: Progressing Problem: Discharge Planning Goal: Discharge to home or other facility with appropriate resources Outcome: Progressing Problem: Chronic Conditions and Co-morbidities Goal: Patient's chronic conditions and co-morbidity symptoms are monitored and maintained or improved Outcome: Progressing Problem: Musculoskeletal - Adult Goal: Return mobility to safest level of function Outcome: Progressing Goal: Maintain proper alignment of affected body part Outcome: Progressing Goal: Return ADL status to a safe level of function Outcome: Progressing * Care Plan - Reji Alves RN - 06/19/2024 3:39 AM EST Problem: Pain - Adult Goal: Verbalizes/displays adequate comfort level or baseline comfort level Outcome: Progressing Problem: Safety - Adult Goal: Free from fall injury Outcome: Progressing Problem: Discharge Planning Goal: Discharge to home or other facility with appropriate resources Outcome: Progressing Problem: Chronic Conditions and Co-morbidities Goal: Patient's chronic conditions and co-morbidity symptoms are monitored and maintained or improved Outcome: Progressing Problem: Musculoskeletal - Adult Goal: Return mobility to safest level of function Outcome: Progressing Goal: Maintain proper alignment of affected body part Outcome: Progressing Goal: Return ADL status to a safe level of function Outcome: Progressing * Home Care - [facility] - 06/18/2024 2:59 PM EST Educated patient on Home Care and services available. Patient is agreeable to receiving home care services at this time. Patient was given choice of home care agencies available in the area and is agreeable to having referrals made with agencies that staff the patients service location. [facility] have been [facility] via [facility]. Liaison to discuss available agencies to accept case with patient upon receiving responses. * Care Coordination - Marlen Moon RN - 06/18/2024 1:43 PM EST Care Managment Initial Assessment Date: 06/18/2024 Patient Name: Carolyn Cintron : 1945 Patient Information Source of Information: Patient Cognition/Language: WFL - Within Functional Limits Permission given to speak with patient medical office representative/caregiver as indicated: Yes Confirmation of Payer with patient/family: Yes Payer Name: [employer] ADVANTAGE : No Confirmation of Primary Care Physician: Confirmed PCP Name: Ramón Coulter Seen in last 2 years?: Yes Primary Caregiver: Self If assistance needed, confirmed caregiver ready, willing and able to care for patient at discharge: Confirmed with: Living Arrangements Current Residence: House Number of Floors 1 Number of Entry Steps: (ramp) Bed/Bath Levels: Both first floor Facility: Facility Name: Plan to Return: Lives with: Spouse/significant other, Children (adult son) Support Systems: Spouse/significant other, Family members Activities of Daily Living Ambulation: Independent Bathing/Dressing: Independent Elimination/Continence/Toileting: Independent Feeding: Independent Who Assists with Activities of Daily Living: Instrumental Activities of Daily Living Prescription Coverage: Yes Pharmacy Used: [facility] Medication Management: Independent Transportation/Shopping: Independent Transportation Mode: Car Needs Assistance with Transportation at Discharge: No Meal Preparation: Independent Laundry/Cleaning: Independent Finances/Bill Paying: Independent Communication: Independent Types of Care Services/Equipment Utilized Care Services: Dialysis Type: Durable Medical Equipment: Walker, Cane (using cane mostly) Patient's Goal/Discharge Plan Patient expects to be discharged to: home with home care Discharge Planning Actions: Continue to follow Patient's Choice Rights and [employer] and Collaborative Relationships Disclosed as Indicated for Post-Acute Care: Interdisciplinary Team Engagement: Home Health Care, PT/OT Social Work Referral for: Additional Information: Met with patient at bedside - reviewed discharge plan, introduced self and role. Patient from home independent with husb and adult son. Patient states has insurance and able to afford medications. Help available at home and family will provide transportation home. PT eval- Continue to assess pending progress, Home with Home health PT, 24 hour supervision or amanda - OT eval Long-Term Facility, Home with Home health OT, Home with assist PRN, Continue to assess pending progress -discussed with patient and prefers to go home with home care- feels husb and son able to assist as needed- HC liaison notified Plan -Home with HC when medically stable. * Care Coordination - Marlen Moon RN - 06/18/2024 7:48 AM EST Msg sent to therapy need PT/OT eval completed to assist with discharge planning * Care Plan - Reji Alves RN - 06/18/2024 3:37 AM EST Problem: Pain - Adult Goal: Verbalizes/displays adequate comfort level or baseline comfort level Outcome: Progressing Problem: Safety - Adult Goal: Free from fall injury Outcome: Progressing Problem: Discharge Planning Goal: Discharge to home or other facility with appropriate resources Outcome: Progressing Problem: Chronic Conditions and Co-morbidities Goal: Patient's chronic conditions and co-morbidity symptoms are monitored and maintained or improved Outcome: Progressing Problem: Musculoskeletal - Adult Goal: Return mobility to safest level of function Outcome: Progressing Goal: Maintain proper alignment of affected body part Outcome: Progressing Goal: Return ADL status to a safe level of function Outcome: Progressing * Perioperative Nursing Note - Tiki Lepe RN - 06/17/2024 3:15 PM EST Report called to PRINCE Sánchez on H6. * Op Note - Mika Uribe MD - 06/17/2024 11:43 AM EST [facility] [address] [address] Dept: [phone] Loc: [phone] Operative Report Patient Name: Carolyn Cintron Date of : 1945 Date of Surgery: 06/17/24 Pre-operative diagnosis: Right extra-articular distal femur fracture Post-operative diagnosis: Same Procedure(s): Retrograde right femoral nail Surgeon: Mika Uribe M.D. Marketing Teacher(s): Keith Alexandra M.D. and Paresh Cordon M.D. Anesthesia: General EBL: 200 cc IVF: Crystalloid Medications: Ancef 2 grams IV Implants: Synthes retrograde femoral nail with lateral plate glass grinder and locking screws, 12mm x36cm nail Clinical History/Indication for Surgery The patient is a 78 y.o. year old female who was presents for operative fixation of a right femur fracture. Typical indications for surgery were reviewed and retrograde nailing was recommended. Risksof surgery in general were reviewed including, but not limited to, infection, nonunion, need for additional procedures, failure of fixation which would require revision, damage to normal structures as well as medical complications such as GA, stroke, PE, DVT, and even . Patient and any family present were given opportunity to ask questions and consider her options ultimately electing to proceed with surgery. No guarantees were given or implied. Operative Narration The patient was identified in the pre-operative holding area. The surgical site was identified and marked. Informed consent was obtained. The patient was then brought to the operating room and placedsupine on the operating table. Anesthesia was administered and care of the head, neck, and airway was maintained by the anesthesia staff throughout the entire procedure. All bony prominences were identified and padded. The operative leg was prepped and draped in the usual sterile fashion. A surgical timeout was performed. Antibiotics were confirmed to have been given. Lateral approach was made and the vastus elevated anteriorly. The fracture was clamped and two cables placed to compress the fracture. While passing the cables, I could directly palpate the passer izabela on bone to ensure no soft tissue was between the passer/cable and bone. These were tightened which held an anatomic reduction. A patellar tendon split technique was used with the tendon split in the midportion.. The 3.2mm guide pin was placed under AP and lateral fluoroscopic guidance. Once correctly positioned the entry reamer was passed over the pin. The long ball-tipped guidewire was passed across fracture and centered in the proximal femur. With the fracture at the correct length, the length of the nail was measured.Sequetial reaming was performed until chatter was obtained within the femur. The correct length anddiameter nail was then impacted and the nail confirmed to be buried beneath the joint using lateralfluoroscopy of the knee. A perfect lateral image of the knee was obtained and the nail rotated until the lateral to medial holes in the nail were in a perfect [place] orientation, indicating correct nail rotation relative to the distal femur. The lateral plate glass grinder was placed and fine adjustment to rotation made until the plate was sitting flush with the lateral cortex of the distal femur. The oblique locking screws were drilled measured and filled to lock the nail to the distal segment. Both optilink screws were placed at this time to fix the plate to the nail. Final confirmation of the length, alignment and rotation was performed and proximal nail locking was performed using perfect [place] technique. The 3.5mm distal locking screws were then placed to maximize distal fixation. Final films were obtained and saved. There was no evidence of femoral neck fracture noted intra-operatively. All incisions were irrigated and closed in a layered fashion. Sterile dressings were applied. Length and rotation were again assessed compared to the contralateral leg and were found to be grossly symmetric. Once the patient was awakened from anesthesia, they were transported to the PACU in stable condition, having tolerated surgery well with no immediate complications. Postoperative Plan WBAT right leg Abx x 24hrs DVT prophylaxis Follow up 2wks This operative report was prepared and signed by Mika Uribe MD at 06/17/24, 2:46 PM * Care Plan - Princess Giron RN - 06/17/2024 10:41 AM EST Problem: Pain - Adult Goal: Verbalizes/displays adequate comfort level or baseline comfort level Outcome: Progressing Problem: Safety - Adult Goal: Free from fall injury Outcome: Progressing Problem: Discharge Planning Goal: Discharge to home or other facility with appropriate resources Outcome: Progressing Problem: Chronic Conditions and Co-morbidities Goal: Patient's chronic conditions and co-morbidity symptoms are monitored and maintained or improved Outcome: Progressing Problem: Musculoskeletal - Adult Goal: Return mobility to safest level of function Outcome: Progressing Goal: Maintain proper alignment of affected body part Outcome: Progressing Goal: Return ADL status to a safe level of function Outcome: Progressing documented in this [facility]12-16-2024 Note* Care Coordination - Unknown Case Management - 06/21/2024 1:50 PM EST Patient Choice Patient Name: CAROLYN CINTRON Date of : 1945 All Providers Sent [facility]: [phone] Address: [address] [place] [address] Name: [facility] Address: [address] [place] [address] Name: [facility] Address: [address] [place] [address] Name: Harish July/[employer] Phone: [phone] Address: [facility] [facility] [address] [place] [address] Name: [facility] Phone: [phone] Address: [address] [place] [address] Name: [facility] Address: [address] [place] [address] Name: [facility] (formerly known as [facility]) Phone: [phone] Address: [address] [place] [address] Name: [facility] Address: [address] [place] [address] Name: [facility] (All Offices) Phone: [phone] Address: [address], [place] [address] Name: [facility] Address: [address] [place] [address] Name: [facility] (For [facility] Facilities Only) Phone: [phone] Address: [address] [place] [address] Name: [facility] Address: [address] [place] [address] Name: [facility] Address: [address] [place] [address] [facility] [id number] Note* Care Coordination - Unknown Case Management - 06/21/2024 1:50 PM EST Patient Choice Patient Name: CAROLYN CINTRON Date of : 1945 All Providers Sent [facility] Phone: [phone] Address: [address] [place] [address] Name: [facility] Address: [address] [place] [address] Name: [facility] Address: [address] [place] [address] Name: Harish Mcdowell/[employer] Phone: [phone] Address: [facility] [address] [facility] [address] [place] [address] Name: [facility] Phone: [phone] Address: [address] [place] [address] Name: [facility] Address: [address] [place] [address] Name: [facility] (formerly known as [facility]) Phone: [phone] Address: [address] [place] [address] Name: [facility] Address: [address] [place] [address] Name: [facility] (All Offices) Phone: [phone] Address: [address] [place] [address] Name: [facility] Address: [address] [place] [address] [address] Name: [facility] (For [facility] Facilities Only) Phone: [phone] Address: [facility] [place] [address] Name: [facility] Address: [address] [place] [address] Name: [facility] Address: [place] [address] [facility] [id number] Note* Home Care - HAWK MONTENEGRO - 06/21/2024 1:46 PM EST Spoke to [facility] . They are able to accept patient for home PT--agency states they called and spoke with patient, explained that she may not get 3 times a week but they would try if the PT deemed necessary. Patient agreeable to go with this agency. [facility] order and updated PT notes sent to agency via [employer]. Agency states they will start her services on Friday of this week. [facility] [id number] Note* Home Care - HAWK MONTENEGRO - 06/21/2024 1:46 PM EST Spoke to [facility] . They are able to accept patient for home PT--agency states they called and spoke with patient, explained that she may not get 3 times a week but they would try if the PT deemed necessary. Patient agreeable to go with this agency. C order and updated PT notes sent to agency via [employer]. Agency states they will start her services on Friday of this week. [facility] [id number] Note* Home Care - HAWK MONTENEGRO - 06/21/2024 1:07 PM EST BSC ordered per PT request. [facility] notified of order and discharge order in. [facility] [id number] Note* Home Care - HAWK MONTENEGRO - 06/21/2024 1:07 PM EST BSC ordered per PT request. [facility] notified of order and discharge order in. [facility] [id number] NoteHospitalist Discharge Summary Carolyn Cintron : 1945 Admit date: 06/16/2024 Discharge date: 06/21/2024 Admitting Physician: Christy Snyder DO Primary Care Physician: No primary care provider on file. Visit Status: Inpatient Code Status: Full Code Acute, acute on chronic, unstable/uncontrolled chronic problems/discharge diagnoses: Right periprosthetic distal femur fracture s/p right fourth 06/17/24 Stable chronic problems affecting care, new non-acute discharge diagnoses: Asthma DM2 with hyperglycemia 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 Hypothyroidism Past Medical History: Diagnosis Date Asthma Diabetes mellitus (HCC) Disease of thyroid gland 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 Procedures: right fourth 06/17/24 Hospital Course: Patient is a 78-year-old female with history of remote bilateral TKA DM2, CAD, HLD, CKD who presented with right knee pain after mechanical fall from standing. She was on the steps and fell sideways hitting her head and knee, denies loss of consciousness. She was found to have right periprosthetic distal femur fracture. Orthopedic surgery consulted, she underwent R femur ORIF 06/17/24. See discharge diagnoses list above and medication adjustments below in med rec.The patient is discharged in improved and stable condition. Consults: None Discharge Instructions: Diet: Dietary Orders (From admission, onward) Start Ordered 06/17/241832 Adult diet Regular; 5 carb choices (75 gm/meal) Diet effective now Question Answer Comment Diet type Regular Carbohydrate restriction: 5 carb choices (75 gm/meal) 06/17/241831 Activity: as tolerated Recommended Outpatient Tests: Disposition: Patient discharged in stable condition to home with [facility] services . Greater than 31 minutes spent discharging the patient and coming up with patient discharge plan. Vitals: BP 113/58 Pulse 72 Temp 36.2 ?C (97.1 ?F) (Temporal) Resp 16 Ht 5' 2 (1.575 m) Wt 190 lb 3.2 oz (86.3 kg) SpO2 97% BMI 34.79 kg/m? Pulse Ox: SpO2 Av % Min: 97 % Max: 97 % Supplemental O2: O2 Flow Rate (L/min): 2 L/min Physical Exam Cardiovascular: Rate and Rhythm: Normal rate and regular rhythm. Pulses: Normal pulses. Heart sounds: Normal heart sounds. Pulmonary: Effort: Pulmonary effort is normal. Breath sounds: Normal breath sounds. Abdominal: General: Bowel sounds are normal. Palpations: Abdomen is soft. LABS: No results for input(s): NA, K, CL, CO2, BUN, CREATININE, GLUCOSE, CALCIUM in the last 72 hours. Recent Labs 06/19/24 0334 WBC 9.9 RBC 2.83* HGB 9.0* HCT 28.1* MCV 99.3* MCH 31.8 MCHC 32.0 RDW 14.6 PLT 179 MPV 9.3 Discharge Medications: Medication List START taking these medications acetaminophen 500 MG tablet Commonly known as: Tylenol Take 2 tablets (1,000 mg) by mouth every 8 hours for 10 days. enoxaparin 40 MG/0.4ML solution prefilled syringe Commonly known as: Lovenox Inject 0.4 mL (40 mg) under the skin every 24 hours. Start taking on: June 22, 2024 oxyCODONE 5 MG immediate release tablet Commonly known as: Roxicodone Take 1 tablet (5 mg) by mouth every 4 hours as needed for severe pain (7-10) for up to 5 days. polyethylene glycol (PEG) 3350 17 g packet Commonly known as: Miralax Take 17 g by mouth Daily as needed (constipation) for up to 3 days. CONTINUE taking these medications ASPIR 81 MG EC tablet Generic drug: aspirin insulin degludec 200 UNIT/ML injection Commonly known as: Tresiba FlexTouch insulin regular 100 UNIT/ML pen Commonly known as: NovoLIN R lisinopril 10 MG tablet metoprolol succinate XL 25 MG 24 hr tablet Commonly known as: Toprol-XL rosuvastatin 20 MG tablet Commonly known as: Crestor traZODone 50 MG tablet Commonly known as: Desyrel Where to Get Your Medications These medications were sent to [facility] [address], [facility] [address] Hours: Friday to Friday 10 am to 6 pm enoxaparin 40 MG/0.4ML solution prefilled syringe oxyCODONE 5 MG immediate release tablet Information about where to get these medications is not yet available Ask your nurse or doctor about these medications acetaminophen 500 MG tablet polyethylene glycol (PEG) 3350 17 g packet Recommended Follow-up: Tracey Armendariz PERSON[employer]ANCE [employer] - [facility] [address] [place] [address] Mika Uribe MD [address] [facility] [address] [facility] [address] Follow up in 2 week(s) For wound re-check Tracey Armendariz PERSONNEL QUALITY ASSURANCE AUDITOR - [employer] [address] [place] [address] Complexity of Follow up: [] Moderate Complexity: follow up within 7-14 calendar days (37360) [x] Severe Complexity: follow up within 7 calendar days (85280) Follow up Testing, Pending results or Referrals at Transitional Care Visit: [x] yes [] no Instructions to MA: Please call patient on day after discharge (must document patient contacted within 2 bus (more content not included)...[facility]12-16-2024 History of Present illness Narrative* Denis De Leon DO - 06/21/2024 12:43 PM EST Patient chart is reviewed. Currently rounding. Full note to follow. * July Lizama OT - 06/21/2024 11:44 AM EST Images from the original note were not included. OCCUPATIONAL THERAPY [facility] Treatment Note Name/MRN: Carolyn Cintron ([id number]) Date of : 1945 Age: 78 y.o. Room/Bed: -5108/H-5108 A Discharge Recommendation: 24 hour supervision or assist, Home with Home health OT Other: TBD next level of care when in home environment Prior Level of Function Prior Level of ADL Function: Independent Prior Level of Mobility: Independent; Device: None Prior Level of Transfers: Independent Assessment Pt seen for occupational therapy treatment for discharge purposes as pt called for see-today. Pt requiring CGA-SBA for functional mobility, increased time for all tasks d/t decreased pace of movements. Pt stable while up however requiring increased time for transfers and mobility. Pt adamant about home going, recommend home OT with 24hr assist upon discharge. Pt stating she will have 24hr assist from her sister and their upon home discharge while her son is out of the house at work. Pt will need this 24hr assist upon discharge as pt unable to ambulate w/o heavy reliance on BUEs on FWW, impacting her ability to prepare meals, transport items, etc. Subjective Pt in chair upon OT arrival. Pt agreeable to OT, requesting to use the bathroom. Pt stating that [facility] has home health that is able to come out to her home, pt requesting to speak with TCCregarding discharge dispo Pain: RN managing pain. Medical Precautions: No active isolations Proper PPE donned/doffed in accordance with facility standards. Fall Risk: Rosales Fall Risk Score: 85 (Medium Risk) Rosales Fall Risk Score: 85 (High Risk) Precautions/Restrictions: Right LE Weight Bearing: Weight Bearing As Tolerated Family/Caregiver Present: none Objective ADLs Toileting: SBA Grooming: Contact Guard SBA for toilet transfers, CGA for standing balance at sink, heavy lean on counter top d/t pain and decreased endurance per pt report Transfers/Mobility Sit to stand: Contact Guard Stand to sit: Contact Guard Toilet: SBA Sitting balance: Independent Standing balance: SBA, Contact Guard Functional mobility: Contact Guard Heavy reliance on BUE on FWW, required standing rest break upon return from bathroom to chair d/t BUE fatigue Device(s) used: Front wheeled walker Plan Continue acute OT per plan of care. Safety/Education Safety Safety Devices in place: call light within reach, left in chair, gait belt, and no alarms engaged upon entry Restraints: No Education Education Given To: patient Education Provided: OT Role, Plan of Care, Discharge Recommendations, and Benefits of Increasing Activity Education Method: Verbal Barriers to Learning: None Education Outcome: Verbalized Understanding AM-PAC AM-PAC Inpatient Daily Activity Raw Score: 21 ADL Inpatient CMS G-Code Modifier: CJ Goals Patient Stated Goal: Home Encounter Problems Encounter Problems (Active) Balance Patient will maintain dynamic standing balance for 5 minutes with modified independence in order todemonstrate decreased risk of falling. (Progressing) Start: 06/18/24 Expected End: 07/16/24 Bathing Patient will utilize adaptive techniques to bathe body with mod I (Progressing) Start: 06/18/24 Expected End: 07/16/24 Dressings Lower Extremities Patient will dress lower body with mod I (Progressing) Start: 06/18/24 Expected End: 07/16/24 Toileting Patient will complete toileting tasks at standard toilet with modified independence. (Progressing) Start: 06/18/24 Expected End: 07/16/24 Transfers Patient will complete functional transfer with rolling walker with modified independence in order to prepare for ambulation. (Progressing) Start: 06/18/24 Expected End: 07/16/24 Therapy Time Individual Co-treatment Time In 1114 Time Out 1142 Minutes 28 Timed Code Treatment Minutes: 28 Minutes (2 self) July Lizama OT * Ambrocio Mccord, PT - 06/21/2024 8:59 AM EST Images from the original note were not included. PHYSICAL THERAPY [facility] Treatment Note Name/MRN: Carolyn Cintron ([id number]) Date of : 1945 Age: 78 y.o. [facility]: [facility] A Discharge Recommendation: Home with Home health PT, 24 hour supervision or assist Equipment Needed: Yes Other: Bedside commode Prior Level of Function Prior Level of ADL Function: Independent Prior Level of Mobility: Independent; Device: None Prior Level of Transfers: Independent Assessment Pt is making progress on 2/3 goals. Pt fatigues with ambulation and towards end limited by right knee/thigh pain along with nausea. Pt is CGA x1 to SBA x1 during session. Encouraged HEP throughout day or at home for 2x-3x per day. Given Hip fracture handout. Pt again confirmed ramp into home. Recommend FWW use at home along with home PT and 24 hour assist. Subjective Pt agreeable for therapy. Pt reports 10/10 right thigh/hip pain at end of session along with nausea. RN (ryann) notified. Medical Precautions: No active isolations Proper PPE donned/doffed in accordance with facility standards. Fall Risk: Rosales Fall Risk Score: 85 (Medium Risk) Rosales Fall Risk Score: 85 (High Risk) Precautions/Restrictions: Right LE Weight Bearing: Weight Bearing As Tolerated Overall Cognitive Status: WFL Overall Orientation Status: Oriented x4 Family/Caregiver Present: none Objective Transfers/Mobility Sit to stand: SBA, Contact Guard Stand to sit: SBA Performed 4 sit to stand transfers between each ambulation. Pt fatigues. Pt able to bring hands back to grab onto arm rest of chair prior to sitting. Pt mostly SBA x1 on 3 attempts and CGA x1 on 4th attempt Device(s) used: Front wheeled walker Ambulation Ambulation 1 Assistive device(s) used: Front wheeled walker Assist level: SBA Distance (ft): 12 feet x1, 14 feet x1, 16 feet x1, 8 feet x1 Quality of gait: uneven step length, fatigues with ambulation. Cued on endurance training with ambulation. Pt educated on improving step length Exercises Exercises Straight Leg Raise: 1 set of 10 reps RLE AAROM, LLE AROM; encouraged getting leg feed elevator worker to help with exercise Quad Sets: 1 set of 10 reps BLE supine Gluteal Sets: 1 set of 10 reps BLE supine Hip Abduction: 1 set of 10 reps RLE AAROM, LLE AROM Knee Long Arc Quad: 1 set of 10 reps BLE sitting Knee Short Arc Quad: 1 set of 10 reps BLE sitting Ankle Pumps: 1 set of 10 reps BLE sitting Plan Continue acute PT per plan of care. Safety/Education Safety Safety Devices in place: call light within reach, left in chair, gait belt, patient at risk for falls, and pt left with PRINCE renee Restraints: N/A Education Education Given To: patient Education Provided: PT Role, Plan of Care, Home Exercise Program, Transfer Training, Discharge Recommendations, and Benefits of Increasing Activity Education Method: Verbal and Printed Information Barriers to Learning: None Education Outcome: Verbalized Understanding Outcome Measures AM-PAC AM-PAC Inpatient Mobility Raw Score (No Stairs) : 15 JH-HLM JH-HLM Score: Walked 25 ft or more (i.e. walked outside of room) Goals Patient Stated Goal: to get out here and get home Encounter Problems Encounter Problems (Active) Mobility Patient will ambulate 150 feet with modified independence and least restrictive device in order to improve safety and independence with mobility. (Progressing) Start: 06/18/24 Pain - Adult Transfers Patient will perform bed mobility with independence in order to improve independence and prepare for out of bed mobility. (Not Addressed) Start: 06/18/24 Patient will complete functional transfer with least restrictive device with modified independence in order to prepare for ambulation. (Progressing) Start: 06/18/24 Therapy Time Individual Co-treatment Time In 0819 Time Out 0848 Minutes 29 Timed Code Treatment Minutes: 29 Minutes (1 unit of GT, 1 unit of FA) Ambrocio Mccord, PT * Kenya Strong PTA - 06/20/2024 3:19 PM EST Images from the original note were not included. PHYSICAL THERAPY [facility] Treatment Note Name/MRN: Carolyn Cintron ([id number]) Date of : 1945 Age: 78 y.o. Room[facility]: [facility] A Discharge Recommendation: Continue to assess pending progress, 24 hour supervision or assist, Home with Home health PT Equipment Needed: Yes Other: Bedside commode Prior Level of Function Prior Level of ADL Function: Independent Prior Level of Mobility: Independent; Device: None Prior Level of Transfers: Independent Assessment Progressed with gait distance this session, patient is able to ambulate with FWW and CGA. Heavy reliance on UE and step-to gait pattern, extended time and increased effort for gait. Able to perform transfers with CGA and with cues for UE placement. Reports that her will be with her for mobility and would like a bedside commode for use at home, son can assist as well when not at work. Recommend 24 hour assist and home health PT at discharge. Subjective In recliner upon arrival, agrees to participate in PT. Pain: R LE pain, worse with WB Medical Precautions: No active isolations Proper PPE donned/doffed in accordance with facility standards. Fall Risk: Rosales Fall Risk Score: 85 (Medium Risk) Rosales Fall Risk Score: 85 (High Risk) Precautions/Restrictions: Right LE Weight Bearing: Weight Bearing As Tolerated Overall Cognitive Status: WNL Overall Orientation Status: Oriented x4 Family/Caregiver Present: none Objective Transfers/Mobility Sit to stand: Contact Guard Stand to sit: Contact Guard Toilet: Contact Guard Cues for UE placement, good weight shifting and technique. No instability or LOB. Increased effort to complete. Use of grab bar in bathroom, states grab bar is currently being installed in her BR at home. Device(s) used: Front wheeled walker Ambulation Ambulation 1 Assistive device(s) used: Front wheeled walker Assist level: Contact Guard Distance (ft): 15ft, 12ft x 2, 10ft Quality of gait: antalgic, step to pattern, slow violeta, instability through all phases. Heavy reliance on UE, extended time to complete task. Frequent seated rest breaks due to pain and UE fatigue. Balance During Session: Posture: fair Sitting - Static: Contact Guard Sitting - Dynamic: Contact Guard Standing - Static: Contact Guard Standing - Dynamic: Contact Guard Standing balance with intermittent UE support, able to reach outside MARYAM and across midline with some postural sway and no LOB. Stands for 2-3 min before seated rest. Plan Continue acute PT per plan of care. Safety/Education Safety Safety Devices in place: All fall risk precautions in place, call light within reach, left in chair, and nurse notified Restraints: No Education Transfers, gait, balance Outcome Measures AM-PAC AM-PAC Inpatient Mobility Raw Score (No Stairs) : 15 JH-HLM JH-HLM Score: Walked 25 ft or more (i.e. walked outside of room) Goals Patient Stated Goal: to go home Encounter Problems Encounter Problems (Active) Mobility Patient will ambulate 150 feet with modified independence and least restrictive device in order to improve safety and independence with mobility. (Progressing) Start: 06/18/24 Pain - Adult Transfers Patient will perform bed mobility with independence in order to improve independence and prepare for out of bed mobility. (Not Addressed) Start: 06/18/24 Patient will complete functional transfer with least restrictive device with modified independence in order to prepare for ambulation. (Progressing) Start: 06/18/24 Therapy Time Individual Co-treatment Time In 1450 Time Out 1515 Minutes 25 Timed Code Treatment Minutes: 20 Minutes (Gait) Variance: 5 (bathroom) Kenya Strong PTA Cosigned by Monica Langford, PT at 06/20/2024 3:44 PM EST * Audra Frias MD - 06/20/2024 2:00 PM EST Hospitalist Progress Note 06/20/2024 Assessment/Plan: Data: (CAT1) Reviewed 2 notes from different specialty or health system (each=1). (LOW: 2x CAT1 or independent historian MOD: 3x CAT1 or 1x CAT3 EXTENSIVE: 3x CAT1 and 1x CAT3) Right periprosthetic distal femur fracture s/p right fourth 06/17 -WBAT -Pain control -PT/OT -Will need 30 days of postop DVT PPx -Follow-up with Dr. Uribe in 2 weeks -Patient prefers to have elvin removed by PCP possible DM2 with hyperglycemia -Continue insulin at reduced doses. Monitor glucose and adjust insulin as needed CAD HLD Likely CKD 2: Renal function appears to be at baseline - PT/OT/CM/SW - delirium precautions: increase activity - DVT prophylaxis: enoxaparin and encourage ambulation Discharge Disposition: Anticipate DC home with home care tomorrow. Family is getting home set up for her to come home, installing shower bar today. Patient requesting to see therapy tomorrow since she is hesitant with ambulation Total time spent (which include face to face and non face to face encounters) : 36 minutes Complexity: Acute illness with systemic symptoms (MOD). Multiple stable chronic illnesses (MOD). Risk: Admission to hospital-level care was considered or occurred (HIGH). Advance Directive: Full Code Toxic drug monitoring/narrow therapeutic index drug monitoring : # Drug name : # Route administered: # Method of monitoring: Subjective: Admit Date: 06/16/2024 PCP: No primary care provider on file. Room#: H-5108/H-510 A Brief Hospital course: Patient is a 78-year-old female with history of remote bilateral TKA DM2, CAD, HLD, CKD who presented with right knee pain after mechanical fall from standing. She was on the steps and fell sideways hitting her head and knee, denies loss of consciousness. She was found to have right periprosthetic distal femur fracture. Orthopedic surgery consulted, she underwent R femur ORIF 06/17. Interval History: Sitting in chair, feeling a lot better States she was able to walk to bathroom with assistance, made her feel better Family is getting home set up for her Lives with her , who needs assistance. Son did temporarily off to help, but will be going back to work soon Adult diet Regular; 5 carb choices (75 gm/meal) 24HR INTAKE/OUTPUT: Intake/Output Summary (Last 24 hours) at 06/20/2024 1400 Last data filed at 06/20/2024 1216 Gross per 24 hour Intake 1700 ml Output 300 ml Net 1400 ml Past Medical History: Past Medical History: Diagnosis Date Asthma Diabetes mellitus (HCC) Disease of thyroid gland 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 LABS: CBC: Recent Labs 06/18/24 0019 06/19/24 0334 WBC 8.3 9.9 RBC 3.10* 2.83* HGB 9.7* 9.0* HCT 29.7* 28.1* MCV 95.8 99.3* RDW 14.6 14.6 PLT 198 179 BMP: No results for input(s): NA, K, CL, CO2, BUN, CREATININE, GLUCOSE, CALCIUM, ANIONGAP in the last 72 hours. LIVER PROFILE:No results for input(s): AST, ALT, BILITOT, ALKPHOS, PROT in the last 72 hours. No lab exists for component: LABALBU PT/INR: No results for input(s): PROTIME, INR in the last 72 hours. CARDIAC ENZYMES: No results for input(s): TROPONINI in the last 72 hours. Procalcitonin: No results found for: PROCAL COVID-19 PCR: No results for input(s): COVID19 in the last 72 hours. Objective: Vitals: BP (!) 110/48 (BP Location: Left arm, Patient Position: Lying) Pulse 70 Temp 36.4 C (97.6 F) (Temporal) Resp 16 Ht 5' 2 (1.575 m) Wt 190 lb 3.2 oz (86.3 kg) SpO2 92% BMI 34.79 kg/m Pulse Ox: SpO2 Av % Min: 92 % Max: 98 % Supplemental O2: O2 Flow Rate (L/min): 2 L/min Physical Exam Vitals and nursing note reviewed. Constitutional: Appearance: Normal appearance. Cardiovascular: Rate and Rhythm: Normal rate. Pulmonary: Effort: Pulmonary effort is normal. Abdominal: General: Abdomen is flat. Neurological: Mental Status: She is alert. Psychiatric: Mood and Affect: Mood normal. Behavior: Behavior normal. Medications: acetaminophen, 1,000 mg, Oral, q8h aspirin, 81 mg, Oral, Daily enoxaparin, 40 mg, SubCUTAneous, Daily insulin glargine, 46 Units, SubCUTAneous, Nightly insulin lispro, 0-18 Units, SubCUTAneous, TID WC And insulin lispro, 0-18 Units, SubCUTAneous, Nightly insulin regular, 30 Units, SubCUTAneous, TID WC lisinopril, 10 mg, Oral, Daily metoprolol succinate XL, 25 mg, Oral, Daily rosuvastatin, 20 mg, Oral, Nightly Extended Emergency Contact Information Primary Emergency Contact: Benedict Cintron Mobile Relation: Son Preferred language: Chinese 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 needed? No Secondary Emergency Contact: Jun Cintron Mobile Relation: Spouse Preferred language: Chinese 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 needed? No Audra Frias MD Division of Hospitalist Medicine [facility] * Audra Frias MD - 06/19/2024 2:57 PM EST Hospitalist Progress Note 06/19/2024 Assessment/Plan: Data: (CAT1) Reviewed 2 notes from different specialty or health system (each=1). (LOW: 2x CAT1 or independent historian MOD: 3x CAT1 or 1x CAT3 EXTENSIVE: 3x CAT1 and 1x CAT3) Right periprosthetic distal femur fracture s/p right fourth 06/17 -WBAT -Pain control -PT/OT -Will need 30 days of postop DVT PPx -Follow-up with Dr. Uribe in 2 weeks -Patient prefers to have elvin removed by PCP possible DM2 with hyperglycemia -Continue insulin at reduced doses. Monitor glucose and adjust insulin as needed CAD HLD Likely CKD 2: Renal function appears to be at baseline - PT/OT/CM/SW - delirium precautions: increase activity - DVT prophylaxis: enoxaparin and encourage ambulation Discharge Disposition: Anticipate DC home with home care likely in next 1-2 days pending therapy evaluations, pain control, set up of home environment Total time spent (which include face to face and non face to face encounters) : 36 minutes D/W patient's son Complexity: Acute illness with systemic symptoms (MOD). Multiple stable chronic illnesses (MOD). Risk: Admission to hospital-level care was considered or occurred (HIGH). Advance Directive: Full Code Toxic drug monitoring/narrow therapeutic index drug monitoring : # Drug name : # Route administered: # Method of monitoring: Subjective: Admit Date: 06/16/2024 PCP: No primary care provider on file. Room#: H-5108/H-5108 A Brief Hospital course: Patient is a 78-year-old female with history of remote bilateral TKA DM2, CAD, HLD, CKD who presented with right knee pain after mechanical fall from standing. She was on the steps and fell sideways hitting her head and knee, denies loss of consciousness. She was found to have right periprosthetic distal femur fracture. Orthopedic surgery consulted, she underwent R femur ORIF 06/17. Interval History: Sitting on commode. States she was able to have a bowel movement yesterday, still passing gas Having a lot of pain Nervous about going home given her weakness Adult diet Regular; 5 carb choices (75 gm/meal) 24HR INTAKE/OUTPUT: Intake/Output Summary (Last 24 hours) at 06/19/2024 1458 Last data filed at 06/19/2024 0335 Gross per 24 hour Intake 550 ml Output 350 ml Net 200 ml Past Medical History: Past Medical History: Diagnosis Date Asthma Diabetes mellitus (HCC) Disease of thyroid gland 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 LABS: CBC: Recent Labs 06/17/24 0611 06/18/24 0019 06/19/24 0334 WBC 6.8 8.3 9.9 RBC 3.31* 3.10* 2.83* HGB 10.4* 9.7* 9.0* HCT 31.5* 29.7* 28.1* MCV 95.2 95.8 99.3* RDW 14.3 14.6 14.6 PLT 185 198 179 BMP: Recent Labs 06/17/24 0240 06/17/24 0611 NA 140 139 K 4.3 4.4 CL 109* 109* CO2 23 24 BUN 30* 29* CREATININE 1.44* 1.52* GLUCOSE 165* 154* CALCIUM 9.5 9.4 ANIONGAP 8 6 LIVER PROFILE:No results for input(s): AST, ALT, BILITOT, ALKPHOS, PROT in the last 72 hours. No lab exists for component: LABALBU PT/INR: Recent Labs 06/17/24 0240 PROTIME 11.7 INR 1.0 CARDIAC ENZYMES: No results for input(s): TROPONINI in the last 72 hours. Procalcitonin: No results found for: PROCAL COVID-19 PCR: No results for input(s): COVID19 in the last 72 hours. Objective: Vitals: BP (!) 107/42 (BP Location: Left arm, Patient Position: Sitting) Pulse 69 Temp 36.6 C (97.9 F) (Temporal) Resp 17 Ht 5' 2 (1.575 m) Wt 190 lb 3.2 oz (86.3 kg) SpO2 95% BMI 34.79 kg/m Pulse Ox: SpO2 Av.5 % Min: 94 % Max: 95 % Supplemental O2: O2 Flow Rate (L/min): 2 L/min Physical Exam Vitals and nursing note reviewed. Constitutional: Appearance: Normal appearance. Cardiovascular: Rate and Rhythm: Normal rate. Pulmonary: Effort: Pulmonary effort is normal. Abdominal: General: Abdomen is flat. Neurological: Mental Status: She is alert. Psychiatric: Mood and Affect: Mood normal. Behavior: Behavior normal. Medications: acetaminophen, 1,000 mg, Oral, q8h aspirin, 81 mg, Oral, Daily enoxaparin, 40 mg, SubCUTAneous, Daily insulin glargine, 46 Units, SubCUTAneous, Nightly insulin lispro, 0-18 Units, SubCUTAneous, TID WC And insulin lispro, 0-18 Units, SubCUTAneous, Nightly insulin regular, 30 Units, SubCUTAneous, TID WC lisinopril, 10 mg, Oral, Daily metoprolol succinate XL, 25 mg, Oral, Daily rosuvastatin, 20 mg, Oral, Nightly Extended Emergency Contact Information Primary Emergency Contact: Benedict Cintron Mobile Relation: Son Preferred language: Chinese 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 needed? No Secondary Emergency Contact: Jun Cintron Mobile Relation: Spouse Preferred language: Chinese 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 needed? No Audra Frias MD Division of Hospitalist Medicine Acute [facility] * Keith Alexandra MD - 06/19/2024 10:21 AM EST Images from the original note were not included. Ortho Progress Note Patient: Carolyn Cintron Date of : 1945 Acct: [id number] PCP: No primary care provider on file. Date of Admission: 06/16/2024 Date of Service: Pt seen/examined on 06/19/2024 SUBJECTIVE: No acute events overnight. Resting comfortably in bed. Pain controlled, ambulating with assistance.Questions about rehab answered. OBJECTIVE: General: alert and oriented to person, place and time, well-developed and well- nourished, in no acute distress VITALS: BP (!) 107/42 (BP Location: Left arm, Patient Position: Sitting) Pulse 69 Temp 36.6 C (97.9 F) (Temporal) Resp 17 Ht 1.575 m (5' 2) Wt 86.3 kg (190 lb 3.2 oz) SpO2 95% BMI 34.79 kg/m MSK exam: RLE: Dressing with mild saturation over the knee SILT s/s/sp/dp/t +motor HF/KE/DF/EHL/PF Palp DP pulse Negative Clarence bilaterally Lab Results Component Value Date WBC 9.9 06/19/2024 HGB 9.0 (L) 06/19/2024 HCT 28.1 (L) 06/19/2024 PLT 179 06/19/2024 NA 139 06/17/2024 K 4.4 06/17/2024 CL 109 (H) 06/17/2024 CREATININE 1.52 (H) 06/17/2024 BUN 29 (H) 06/17/2024 CO2 24 06/17/2024 INR 1.0 06/17/2024 HGBA1C 6.3 (H) 06/17/2024 Lab Results Component Value Date RH POS 06/17/2024 RH POS 06/17/2024 ASSESSMENT AND PLAN: This is a 78 y.o. female with R PPDFFx s/p ORIF on 06/17 -Operative plans: No further plans for surgery -Weight bearing: RLE: WBAT LLE: WBAT RUE: WBAT LUE: WBAT -Range of motion parameters: ROM as tolerated -Immobilization: No immobilization needed -Consults: None -Antibiotics: 24 hours of post op antibiotics. -Dressings: Keep dressings clean dry and intact for 5 days post operatively, then ok to leave open to air if incision is without drainage. -Other: None -Diet: no restrictions from ortho standpoint -Labs: Hgb 10.4 > 9.7> 9.0, CTM -PT/OT -PT recommended outpatient/post discharge?: Yes, for basic ADLs -Medical management, dvt ppx and pain control per primary -DVT ppx recommended?: Yes, 30 days of post operative DVT ppx recommended -Follow-up with Dr Uribe in 2 weeks -Ortho to sign off, please page the on-call resident with any further questions or concerns. Keith Alexandra MD 06/19/2024 * Ambrocio Mccord PT - 06/18/2024 12:20 PM EST Images from the original note were not included. PHYSICAL THERAPY [facility] Initial Evaluation Name/MRN: Carolyn Cintron ([id number]) Evaluation Date: 06/18/2024 Date of : 1945 Admission Date: 06/16/2024 11:08 PM Age: 78 y.o. Room[facility]Bed: [facility] A Discharge Recommendation: Continue to assess pending progress, Home with Home health PT, 24 hour supervision or assist Equipment Needed: No Assessment IMPRESSION: Pt is a 78 year old patient admitted for closed fracture of right femur and s/p R PPDFFx s/p ORIF on 06/17 . Pt is WBAT on RLE and ROM as tolerated. Pt, prior to admission, was living at home with and son (Works 1st shift M-F). Pt normally independent. Pt requires min assist x1 for transfers/ambulation. Pt fatigues quickly during session. Needs cueing on hand placement for proper transfers. Continue to assess pending progress, anticipate home with home PT and 24 hour assist Admitting Diagnosis: R PPDFFx s/p ORIF on 06/17 Prognosis: good Performance Deficits /Impairments: Increased Pain, Decreased Functional Mobility, Decreased Strength, Decreased Endurance, Decreased Balance, and Decreased ROM Decision Making: Medium Complexity Subjective Pt agreeable for therapy. Pt eager to get out of bed due to sore buttock. Pt reports 9/10 right knee pain with activity (RN giving pain meds at end of session) Past Medical History: Past Medical History: Diagnosis Date Asthma Diabetes mellitus (HCC) Disease of thyroid gland 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 Past Surgical History: Past Surgical History: Procedure Laterality Date BACK SURGERY 3 spinal surgeries CARPAL TUNNEL RELEASE Bilateral 1974 CHOLECYSTECTOMY 1984 HYSTERECTOMY 1989 JOINT REPLACEMENT Bilateral 10years ago Admission Diagnosis: Patient Active Problem List Diagnosis Date Noted Closed fracture of distal end of right femur, unspecified fracture morphology, initial encounter ([facility]) 06/17/2024 Medical Precautions: No active isolations Proper PPE donned/doffed in accordance with facility standards. Fall Risk: Rosales Fall Risk Score: 70 (Medium Risk) Rosales Fall Risk Score: 70 (High Risk) Precautions/Restrictions: Right LE Weight Bearing: Weight Bearing As Tolerated ROM as tolerated Family/Caregiver Present: none Overall Cognitive Status: WFL Overall Orientation Status: Oriented x4 Vision: wears glasses at all times and and are being used during the eval Hearing: normal Social/Functional History Patient admitted from home. Lives With: Spouse and Son Type of Home: single family home Home Layout: Single Level Home Home Access: Stairs to Enter with Rails (# of stairs: 2-3); has a ramp into the home Bathroom Shower/Tub: Shower Chair with Back, Walk in Shower, and Grab Bars Toilet: Handicap Height Home Equipment: front wheeled walker, cane, and grab bars Homemaking Responsibilities: Independent Receives Help From: Spouse and Family Active Mass Communications Instructor: No Prior Level of Function Prior Level of ADL Function: Independent Prior Level of Mobility: Independent; Device: None Prior Level of Transfers: Independent Objective Lower Extremity Assessment AROM: WFL - LLE is WFL; right ankle is WFL; right knee is grossly 30 degrees flexed in bed; 80 degrees flexed in bed; SLR <10 degrees. Strength: Exceptions: LLE is 4+/5 ; right ankle is 4-/5; knee is 2- to 2+/5 during session; SLR is 2-/5 on LLE. Sensation: Impaired: Pt reports foot is only numb but able to feel light when tested. Balance: Balance During Session: Posture: fair Sitting - Static: Contact Guard Sitting - Dynamic: Contact Guard Standing - Static: Contact Guard Standing - Dynamic: Contact Guard Bed Mobility: Supine to sit: Contact Guard Pt needs very little assist to move LLE. Transfers Sit to stand: Min Assist Stand to sit: Min Assist Performed 5 sit to stand transfers. Pt needs cueing on hand placement and proper placement of LLE with transfer. Fatigues quickly Ambulation Ambulation 1 Assistive device(s) used: Front wheeled walker Assist level: Contact Guard Distance (ft): 11 feet x1, 12 feet x1 Quality of gait: uneven step length, instability through all phases Outcome Measures AM-PAC How much HELP from another person do you currently need Turning from your back to your side while in a flat bed without using bedrails?: A Little Moving from lying on your back to sitting on the side of a flat bed without using bedrails?: A Little Moving to and from a bed to a chair (including a wheelchair)?: A Little Standing up from a chair using your arms (wheelchair or bedside chair)?: A Lot Walking in a hospital room?: A Lot Stair climbing assessed?: No AM-PAC Inpatient Mobility Raw Score (No Stairs) : 13 [facility] Score: Walked 25 ft or more (i.e. walked outside of room) Plan Pt would benefit from skilled acute PT services to address Strengthening, ROM, Gait Training, Balance Training, Functional Mobility Training, Endurance Training, Safety Education and Training, Equipment Evaluation/Education, and Positioning. Frequency: 3x/week for 2 weeks Barriers: Pain, Lower extremity weakness, Decreased endurance, and New weightbearing/ROM restrictions Safety/Education Safety Safety Devices in place: call light within reach, left in chair, gait belt, patient at risk for falls, and waffle cushion under buttock Restraints: N/A Education Education Given To: patient Education Provided: PT Role, PT Goals, and Plan of Care Education Method: Verbal Barriers to Learning: None Education Outcome: Verbalized Understanding Goals Patient Stated Goal: to get out here and get home Encounter Problems Encounter Problems (Active) Mobility Patient will ambulate 150 feet with modified independence and least restrictive device in order to improve safety and independence with mobility. Start: 06/18/24 Pain - Adult Transfers Patient will perform bed mobility with independence in order to improve independence and prepare for out of bed mobility. Start: 06/18/24 Patient will complete functional transfer with least restrictive device with modified independence in order to prepare for ambulation. Start: 06/18/24 Therapy Time Individual Co-Treatment Co-Evaluation Time In 0804 Time Out 0837 Minutes 33 Timed Code Treatment Minutes: 8 Minutes (1 unit of FA) Ambrocio Mccord PT Patient's Physical Therapy Plan of Care supervision is transferred to a [facility] Therapy Services Physical Therapist. Goals and/or treatment plan was established in collaboration with patient/family/other representatives. * Audra Frias MD - 06/18/2024 12:13 PM EST Hospitalist Progress Note 06/18/2024 Assessment/Plan: Data: (CAT1) Reviewed 2 notes from different specialty or health system (each=1). (LOW: 2x CAT1 or independent historian MOD: 3x CAT1 or 1x CAT3 EXTENSIVE: 3x CAT1 and 1x CAT3) Right periprosthetic distal femur fracture s/p right fourth 06/17 -WBAT -Pain control -PT/OT -Will need 30 days of postop DVT PPx -Follow-up with Dr. Uribe in 2 weeks -Patient prefers to have elvin removed by PCP possible DM2 with hyperglycemia -Continue insulin at reduced doses. Monitor glucose and adjust insulin as needed CAD HLD Likely CKD 2: Renal function appears to be at baseline - PT/OT/CM/SW - delirium precautions: increase activity - DVT prophylaxis: enoxaparin and encourage ambulation Discharge Disposition: Anticipate DC pending therapy evaluations, pain control Total time spent (which include face to face and non face to face encounters) : 36 minutes Complexity: Acute illness with systemic symptoms (MOD). Multiple stable chronic illnesses (MOD). Risk: Admission to hospital-level care was considered or occurred (HIGH). Advance Directive: Full Code Toxic drug monitoring/narrow therapeutic index drug monitoring : # Drug name : # Route administered: # Method of monitoring: Subjective: Admit Date: 06/16/2024 PCP: No primary care provider on file. Room#: H-5108/H-5101 A Brief Hospital course: Patient is a 78-year-old female with history of remote bilateral TKA DM2, CAD, HLD, CKD who presented with right knee pain after mechanical fall from standing. She was on the steps and fell sideways hitting her head and knee, denies loss of consciousness. She was found to have right periprosthetic distal femur fracture. Orthopedic surgery consulted, she underwent R femur ORIF 06/17. Interval History: Worked with therapy earlier today No BM yet, having a lot of gas Ate without issue Wants to work with therapy a little more to see if she would feel comfortable discharge home Adult diet Regular; 5 carb choices (75 gm/meal) 24HR INTAKE/OUTPUT: Intake/Output Summary (Last 24 hours) at 06/18/2024 1214 Last data filed at 06/18/2024 0559 Gross per 24 hour Intake 917 ml Output 1020 ml Net -103 ml Past Medical History: Past Medical History: Diagnosis Date Asthma Diabetes mellitus (HCC) Disease of thyroid gland 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 LABS: CBC: Recent Labs 06/17/24 0240 06/17/24 0611 06/18/24 0019 WBC 7.4 6.8 8.3 RBC 3.41* 3.31* 3.10* HGB 10.7* 10.4* 9.7* HCT 32.7* 31.5* 29.7* MCV 95.9 95.2 95.8 RDW 14.1 14.3 14.6 PLT 190 185 198 BMP: Recent Labs 06/17/24 0240 06/17/24 0611 NA 140 139 K 4.3 4.4 CL 109* 109* CO2 23 24 BUN 30* 29* CREATININE 1.44* 1.52* GLUCOSE 165* 154* CALCIUM 9.5 9.4 ANIONGAP 8 6 LIVER PROFILE:No results for input(s): AST, ALT, BILITOT, ALKPHOS, PROT in the last 72 hours. No lab exists for component: LABALBU PT/INR: Recent Labs 06/17/24 0240 PROTIME 11.7 INR 1.0 CARDIAC ENZYMES: No results for input(s): TROPONINI in the last 72 hours. Procalcitonin: No results found for: PROCAL COVID-19 PCR: No results for input(s): COVID19 in the last 72 hours. Objective: Vitals: BP (!) 113/45 (BP Location: Left arm, Patient Position: Lying) Pulse 68 Temp 36.2 C (97.1 F) (Temporal) Resp 16 Ht 5' 2 (1.575 m) Wt 190 lb 3.2 oz (86.3 kg) SpO2 98% BMI 34.79 kg/m Pulse Ox: SpO2 Av.9 % Min: 96 % Max: 99 % Supplemental O2: O2 Flow Rate (L/min): 2 L/min Physical Exam Vitals and nursing note reviewed. Constitutional: Appearance: Normal appearance. Cardiovascular: Rate and Rhythm: Normal rate. Pulmonary: Effort: Pulmonary effort is normal. Abdominal: General: Abdomen is flat. Neurological: Mental Status: She is alert. Psychiatric: Mood and Affect: Mood normal. Behavior: Behavior normal. Medications: acetaminophen, 1,000 mg, Oral, q8h aspirin, 81 mg, Oral, Daily insulin glargine, 46 Units, SubCUTAneous, Nightly insulin regular, 0-18 Units, SubCUTAneous, q6h insulin regular, 30 Units, SubCUTAneous, TID WC lisinopril, 10 mg, Oral, Daily metoprolol succinate XL, 25 mg, Oral, Daily rosuvastatin, 20 mg, Oral, Nightly Extended Emergency Contact Information Primary Emergency Contact: Jun Cintron Mobile Relation: Spouse Preferred language: Chinese 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 needed? No Secondary Emergency Contact: Benedict Cintron Mobile Relation: Son Preferred language: Chinese 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 needed? No Audra Frias MD Division of Hospitalist Medicine Acute care [facility] * Liz Joseph - 06/18/2024 11:43 AM EST Nutrition rescreen completed. Chart reviewed. Patient to be monitored and followed by the diet facility technician. Liz Brown, DT * Robert Staples OT - 06/18/2024 11:28 AM EST Images from the original note were not included. OCCUPATIONAL THERAPY [facility] Initial Evaluation Name/MRN: Carolyn Cintron ([id number]) Evaluation Date: 06/18/2024 Date of : 1945 Admission Date: 06/16/2024 11:08 PM Age: 78 y.o. Room[facility]Bed: [facility] A Discharge Recommendation: Long-Term Facility, Home with Home health OT, Home with assist PRN,Continue to assess pending progress Assessment IMPRESSION: Pt admitted to [facility] for R PPDFFx s/p ORIF on 06/17 after falling down 3 stairs. Prior toadmission, was living with son and spouse and independent for ADLs and functional mobility. Now required CGA for all STS transfers and functional mobility of short distances. Pt able to complete LB dressing of LLE, however needs assist for RLE due to pain and impaired ROM. No assist needed for UB ADLs. The pt is most limited by pain, generalized weakness, and balance and would benefit from continued therapy services to maximize independence in ADLs and safe transfers. If pt were to leave today,SNF level therapy would be recommended. Pt may progress to home going with home OT and assist as needed throughout hospital stay. Will feel more comfortable recommending home if pt is able to tolerate functional mobility and toileting tasks at toilet with SBA. Reports family is able to assist as needed. Will continue to assess pending progress. Admitting Diagnosis: R PPDFFx s/p ORIF on 06/17 after a fall Performance Deficits /Impairments: Increased Pain, Decreased Functional Mobility, Decreased ADL status, Decreased Strength, Decreased Endurance, and Decreased Balance Prognosis: Good Decision Making: Medium Complexity Subjective Pt seen sitting upright in chair, agreeable to therapy. Left in chair at end of session with all needs within reach. Pain: 0-10 pain scale: 3/10 Location: RLE Past Medical History: Past Medical History: Diagnosis Date Asthma Diabetes mellitus (HCC) Disease of thyroid gland 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 Past Surgical History: Past Surgical History: Procedure Laterality Date BACK SURGERY 3 spinal surgeries CARPAL TUNNEL RELEASE Bilateral 1974 CHOLECYSTECTOMY 1984 HYSTERECTOMY 1990 JOINT REPLACEMENT Bilateral 10years ago Admission Diagnosis: Patient Active Problem List Diagnosis Date Noted Closed fracture of distal end of right femur, unspecified fracture morphology, initial encounter ([facility]) 06/17/2024 Medical Precautions: No active isolations Proper PPE donned/doffed in accordance with facility standards. Fall Risk: Rosales Fall Risk Score: 70 (Medium Risk) Rosales Fall Risk Score: 70 (High Risk) Precautions/Restrictions: Right LE Weight Bearing: Weight Bearing As Tolerated Left LE Weight Bearing: Weight Bearing As Tolerated Thao catheter Family/Caregiver Present: none Overall Cognitive Status: WFL Overall Orientation Status: Oriented x4 Social/Functional History Patient admitted from home. Lives With: Spouse and Son Type of Home: single family home Home Layout: Single Level Home Home Access: Stairs to Enter with Rails (# of stairs: 2-3) Bathroom Shower/Tub: Shower Chair with Back, Walk in Shower, and Grab Bars Toilet: Handicap Height Home Equipment: front wheeled walker, cane, and grab bars Homemaking Responsibilities: Independent Receives Help From: Spouse and Family Active Mass Communications Instructor: No Spouse provides transportation Prior Level of Function Prior Level of ADL Function: Independent Prior Level of Mobility: Independent; Device: None Prior Level of Transfers: Independent Objective ADLs LE Dressing: Mod Assist, able to don L sock, needs assist for R sock UE Dressing: SBA Feeding: SBA Upper Extremity Assessment AROM: WFL PROM: WFL Strength: Exceptions: 3+/5 BUE Vision: wears glasses at all times and and are being used during the eval Hearing: normal Bed Mobility NT as pt sitting upright in chair Transfers/Functional Mobility Sit to stand: Contact Guard Stand to sit: Contact Guard Sitting balance: Independent Standing balance: Contact Guard Functional mobility: Contact Guard Pt completes functional mobility ~10 feet with therapist. Slow, shuffled steps due to guarding and pain. Device(s) used: Front wheeled walker Hand dominance: Right AM-PAC AM-PAC Inpatient Daily Activity Raw Score: 21 ADL Inpatient CMS G-Code Modifier: CJ Plan Pt would benefit from skilled acute OT services to address Strengthening, ROM, Gait Training, Balance Training, Self-Care/ADL Training, Functional Mobility Training, Endurance Training, Safety Education and Training, and Home Management Training. Frequency: 4x/week for 4 weeks Barriers: Pain, Impaired balance, Lower extremity weakness, Upper extremity weakness, and Decreasedendurance Safety/Education Safety Safety Devices in place: All fall risk precautions in place, call light within reach, left in chair, gait belt, and patient at risk for falls Restraints: No Education Education Given To: patient Education Provided: OT Role, Plan of Care, and Discharge Recommendations Education Method: Verbal Barriers to Learning: None Education Outcome: Verbalized Understanding Goals Patient Stated Goal: Home Encounter Problems Encounter Problems (Active) Balance Patient will maintain dynamic standing balance for 5 minutes with modified independence in order todemonstrate decreased risk of falling. Start: 06/18/24 Expected End: 07/16/24 Bathing Patient will utilize adaptive techniques to bathe body with mod I Start: 06/18/24 Expected End: 07/16/24 Dressings Lower Extremities Patient will dress lower body with mod I Start: 06/18/24 Expected End: 07/16/24 Toileting Patient will complete toileting tasks at standard toilet with modified independence. Start: 06/18/24 Expected End: 07/16/24 Transfers Patient will complete functional transfer with rolling walker with modified independence in order to prepare for ambulation. Start: 06/18/24 Expected End: 07/16/24 Therapy Time Individual Co-Treatment Co-Evaluation Time In 0930 Time Out 0945 Minutes 15 Robert Staples OT Patient's Occupational Therapy Plan of Care supervision is transferred to a [facility] Services Occupational Therapist. Goals and/or treatment plan was established in collaboration with patient/family/other representatives. * Keith Alexandra MD - 06/18/2024 6:26 AM EST Images from the original note were not included. Ortho Progress Note Patient: Carolyn Cintron Date of : 1945 Acct: [id number] PCP: No primary care provider on file. Date of Admission: 06/16/2024 Date of Service: Pt seen/examined on 06/18/2024 SUBJECTIVE: No acute events overnight. Resting comfortably in bed. Pain well Controlled. States the block is still working and still has subjective numbness in her leg. Would like to have PCP remove elvin in afew weeks if able to minimize trips to [place] from [facility]. OBJECTIVE: General: alert and oriented to person, place and time, well-developed and well- nourished, in no acute distress VITALS: BP (!) 113/45 (BP Location: Left arm, Patient Position: Lying) Pulse 68 Temp 36.2 C (97.1 F) (Temporal) Resp 16 Ht 1.575 m (5' 2) Wt 86.3 kg (190 lb 3.2 oz) SpO2 98% BMI 34.79 kg/m MSK exam: RLE: Dressings c/d/I SILT s/s/sp/dp/t +motor HF/KE/DF/EHL/PF Palp DP pulse Negative Clarence bilaterally Lab Results Component Value Date WBC 8.3 06/18/2024 HGB 9.7 (L) 06/18/2024 HCT 29.7 (L) 06/18/2024 PLT 198 06/18/2024 NA 139 06/17/2024 K 4.4 06/17/2024 CL 109 (H) 06/17/2024 CREATININE 1.52 (H) 06/17/2024 BUN 29 (H) 06/17/2024 CO2 24 06/17/2024 INR 1.0 06/17/2024 HGBA1C 6.3 (H) 06/17/2024 Lab Results Component Value Date RH POS 06/17/2024 RH POS 06/17/2024 ASSESSMENT AND PLAN: This is a 78 y.o. female with R PPDFFx s/p ORIF on 06/17 -Operative plans: No further plans for surgery -Weight bearing: RLE: WBAT LLE: WBAT RUE: WBAT LUE: WBAT -Range of motion parameters: ROM as tolerated -Immobilization: No immobilization needed -Consults: None -Antibiotics: 24 hours of post op antibiotics. -Dressings: Keep dressings clean dry and intact for 5 days post operatively, then ok to leave open to air if incision is without drainage. -Other: None -Diet: no restrictions from ortho standpoint -Labs: Hgb 10.4 > 9.7, CTM -PT/OT -PT recommended outpatient/post discharge?: Yes, for basic ADLs -Medical management, dvt ppx and pain control per primary -DVT ppx recommended?: Yes, 30 days of post operative DVT ppx recommended -Follow-up with Dr Uribe in 2 weeks -Ortho to follow. Keith Alexandra MD 06/18/2024 * Keith Alexandra MD - 06/17/2024 1:31 PM EST -Operative plans: No further plans for surgery -Weight bearing: RLE: WBAT LLE: WBAT RUE: WBAT LUE: WBAT -Range of motion parameters: ROM as tolerated -Immobilization: No immobilization needed -Consults: None -Antibiotics: 24 hours of post op antibiotics. -Dressings: Keep dressings clean dry and intact for 5 days post operatively, then ok to leave open to air if incision is without drainage. -Other: None -Diet: no restrictions from ortho standpoint -Labs: CBC & BMP x 2 days post op -PT/OT -PT recommended outpatient/post discharge?: Yes, for basic ADLs -Medical management, dvt ppx and pain control per primary -DVT ppx recommended?: Yes, 30 days of post operative DVT ppx recommended -Follow-up with Dr Uribe in 2 weeks -Ortho to follow. * Audra Frias MD - 06/17/2024 12:11 PM EST Patient seen earlier today by admitting provider. Patient is a 78-year-old female with history of remote bilateral TKA DM2, CAD, HLD, CKD who presented with right knee pain after mechanical fall from standing. She was on the steps and fell sideways hitting her head and knee, denies loss of consciousness. She was found to have right periprosthetic distal femur fracture. Orthopedic surgery consulted, plan for R femur ORIF 06/17. Right periprosthetic distal femur fracture -Orthopedic surgery following, plan for ORIF today -NWB RLE -Pain control -PT/OT DM2 CAD HLD CKD: Renal function at baseline documented in this [facility]12-16-2024 Note* Home Care - HAWK MONTENEGRO - 06/21/2024 12:22 PM EST [facility] is able to accept patient for home PT. Spoke with patient to update her on this and she states she only is agreeable to go with this agency if they will come work with her AT LEAST 3 days a week. HCL explained to patient that it is not typical for even 3days a week for home care to be seen, and her visits are usually determined by her evaluation by the PT that sees her. Pt states her sister called [facility] and they state they are able to accommodate 3 or more days a week. Referral has already been sent to this agency with no response via careport. [facility] placed phone call to [facility], spoke with ken, who states they are typically not able to see patients 3 or more days a week either and visits are also determined by the PT's evaluation. [facility] asked that agency review her referral and requested a callbackwith ability to accept patient or not. Will update patient with response. [id number] Note* Home Care - HAWK MONTENEGRO - 06/21/2024 12:22 PM EST [facility] is able to accept patient for home PT. Spoke with patient to update her on this and she states she only is agreeable to go with this agency if they will come work with her AT LEAST 3 days a week. HCL explained to patient that it is not typical for even 3days a week for home care to be seen, and her visits are usually determined by her evaluation by the PT that sees her. Pt states her sister called [facility] and they state they are able to accommodate 3 or more days a week. Referral has already been sent to this agency with no response via careport. [facility] placed phone call to [facility], spoke with ken, who states they are typically not able to see patients 3 or more days a week either and visits are also determined by the PT's evaluation. [facility] asked that agency review her referral and requested a callbackwith ability to accept patient or not. Will update patient with response. [id number] Note* Care Coordination - Marlen Moon RN - 06/21/2024 10:29 AM EST Care Management Progress Note PT eval- Home with Home health PT, 24 hour supervision or assist Equipment Needed: Yes Other: Bedside commode -discussed with patient- home care is not able to find an agency in her area- agreed to review SNF list- SNF list given with explanation of medicare star ratings and the [facility] list. Enc to select 3-4 facilities- will follow up later today. Msg sent to OT need updated OT eval for poss SNF auth Follow up on above- she is declining SNF- home improvement contractor able to find an agency- liaison notified of need for BSC- patient states sister able to assist when son is working [id number] Note* Care Coordination - Marlen Moon RN - 06/21/2024 10:29 AM EST Care Management Progress Note PT eval- Home with Home health PT, 24 hour supervision or assist Equipment Needed: Yes Other: Bedside commode -discussed with patient- home care is not able to find an agency in her area- agreed to review SNF list- SNF list given with explanation of medicare star ratings and the [facility] list. Enc to select 3-4 facilities- will follow up later today. Msg sent to OT need updated OT eval for poss SNF auth Follow up on above- she is declining SNF- home improvement contractor able to find an agency- liaison notified of need for BSC- patient states sister able to assist when son is working [facility] [id number] NoteCare Management Progress Note PT eval- Home with Home health PT, 24 hour supervision or assist Equipment Needed: Yes Other: Bedside commode -discussed with patient- home care is not able to find an agency in her area- agreed to review SNF list- SNF list given with explanation of medicare star ratings and the [facility] list. Enc to select 3-4 facilities- will follow up later today. Msg sent to OT need updated OT eval for poss SNF auth Follow up on above- she is declining SNF- home improvement contractor able to find an agency- liaison notified of need for BSC- patient states sister able to assist when son is working [facility]12-16-2024 Note* Home Care - HA[facility] MONTENEGRO - 06/21/2024 8:50 AM EST Currently there are no accepting agencies for Home PT. Referral resent [facility] that [facility] and 3 new referral sent. HCL will continue to follow. [facility] [id number] Note* Home Care - [facility] MONTENEGRO - 06/21/2024 8:50 AM EST Currently there are no accepting agencies for Home PT. Referral resent to agencies that have not responded via careport and 3 new referral sent. HCL will continue to follow. [facility] [id number] NoteCurrently there are no accepting agencies for Home PT. Referral resent to agencies that have not responded via careport and 3 new referral sent. HCL will continue to follow. [facility]12-16-2024 Plan of care note* Care Plan - Ellis Jimenez RN - 06/21/2024 6:13 AM EST Problem: Pain - Adult Goal: Verbalizes/displays adequate comfort level or baseline comfort level Outcome: Progressing Problem: Safety - Adult Goal: Free from fall injury Outcome: Progressing Problem: Discharge Planning Goal: Discharge to home or other facility with appropriate resources Outcome: Progressing Problem: Chronic Conditions and Co-morbidities Goal: Patient's chronic conditions and co-morbidity symptoms are monitored and maintained or improved Outcome: Progressing Problem: Musculoskeletal - Adult Goal: Return mobility to safest level of function Outcome: Progressing Goal: Maintain proper alignment of affected body part Outcome: Progressing Goal: Return ADL status to a safe level of function Outcome: Progressing [facility] [id number] NoteHospitalist Progress Note 06/20/2024 Assessment/Plan: Data: (CAT1) Reviewed 2 notes from different specialty or health system (each=1). (LOW: 2x CAT1 or independent historian MOD: 3x CAT1 or 1x CAT3 EXTENSIVE: 3x CAT1 and 1x CAT3) Right periprosthetic distal femur fracture s/p right fourth 06/17 -WBAT -Pain control -PT/OT -Will need 30 days of postop DVT PPx -Follow-up with Dr. Uribe in 2 weeks -Patient prefers to have elvin removed by PCP possible DM2 with hyperglycemia -Continue insulin at reduced doses. Monitor glucose and adjust insulin as needed CAD HLD Likely CKD 2: Renal function appears to be at baseline - PT/OT/CM/SW - delirium precautions: increase activity - DVT prophylaxis: enoxaparin and encourage ambulation Discharge Disposition: Anticipate DC home with home care tomorrow. Family is getting home set up for her to come home, installing shower bar today. Patient requesting to see therapy tomorrow since she is hesitant with ambulation Total time spent (which include face to face and non face to face encounters) : 36 minutes Complexity: Acute illness with systemic symptoms (MOD). Multiple stable chronic illnesses (MOD). Risk: Admission to hospital-level care was considered or occurred (HIGH). Advance Directive: Full Code Toxic drug monitoring/narrow therapeutic index drug monitoring : # Drug name : # Route administered: # Method of monitoring: Subjective: Admit Date: 06/16/2024 PCP: No primary care provider on file. Room#: -5108/-5109 A Brief Hospital course: Patient is a 78-year-old female with history of remote bilateral TKA DM2, CAD, HLD, CKD who presented with right knee pain after mechanical fall from standing. She was on the steps and fell sideways hitting her head and knee, denies loss of consciousness. She was found to have right periprosthetic distal femur fracture. Orthopedic surgery consulted, she underwent R femur ORIF 06/17. Interval History: Sitting in chair, feeling a lot better States she was able to walk to bathroom with assistance, made her feel better Family is getting home set up for her Lives with her , who needs assistance. Son did temporarily off to help, but will be going back to work soon Adult diet Regular; 5 carb choices (75 gm/meal) 24HR INTAKE/OUTPUT: Intake/Output Summary (Last 24 hours) at 06/20/2024 1400 Last data filed at 06/20/2024 1216 Gross per 24 hour Intake 1700 ml Output 300 ml Net 1400 ml Past Medical History: Past Medical History: Diagnosis Date Asthma Diabetes mellitus (HCC) Disease of thyroid gland 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 LABS: CBC: Recent Labs 06/18/24 0019 06/19/24 0334 WBC 8.3 9.9 RBC 3.10* 2.83* HGB 9.7* 9.0* HCT 29.7* 28.1* MCV 95.8 99.3* RDW 14.6 14.6 PLT 198 179 BMP: No results for input(s): NA, K, CL, CO2, BUN, CREATININE, GLUCOSE, CALCIUM, ANIONGAP in the last 72 hours. LIVER PROFILE:No results for input(s): AST, ALT, BILITOT, ALKPHOS, PROT in the last 72 hours. No lab exists for component: LABALBU PT/INR: No results for input(s): PROTIME, INR in the last 72 hours. CARDIAC ENZYMES: No results for input(s): TROPONINI in the last 72 hours. Procalcitonin: No results found for: PROCAL COVID-19 PCR: No results for input(s): COVID19 in the last 72 hours. Objective: Vitals: BP (!) 110/48 (BP Location: Left arm, Patient Position: Lying) Pulse 70 Temp 36.4 ?C (97.6 ?F) (Temporal) Resp 16 Ht 5' 2 (1.575 m) Wt 190 lb 3.2 oz (86.3 kg) SpO2 92% BMI 34.79 kg/m? Pulse Ox: SpO2 Av % Min: 92 % Max: 98 % Supplemental O2: O2 Flow Rate (L/min): 2 L/min Physical Exam Vitals and nursing note reviewed. Constitutional: Appearance: Normal appearance. Cardiovascular: Rate and Rhythm: Normal rate. Pulmonary: Effort: Pulmonary effort is normal. Abdominal: General: Abdomen is flat. Neurological: Mental Status: She is alert. Psychiatric: Mood and Affect: Mood normal. Behavior: Behavior normal. Medications: acetaminophen, 1,000 mg, Oral, q8h aspirin, 81 mg, Oral, Daily enoxaparin, 40 mg, SubCUTAneous, Daily insulin glargine, 46 Units, SubCUTAneous, Nightly insulin lispro, 0-18 Units, SubCUTAneous, TID WC And insulin lispro, 0-18 Units, SubCUTAneous, Nightly insulin regular, 30 Units, SubCUTAneous, TID WC lisinopril, 10 mg, Oral, Daily metoprolol succinate XL, 25 mg, Oral, Daily rosuvastatin, 20 mg, Oral, Nightly Extended Emergency Contact Information Primary Emergency Contact: Benedict Cintron Mobile Relation: Son Preferred language: Chinese 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 needed? No Secondary Emergency Contact: Jun Cintron Mobile Relation: Spouse Preferred language: Chinese 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 needed? No Dontrelljot Laura Frias MD Division of Hospitalist Medicine [facility]12-15-2024 Plan of care note* Care Plan - Ellis Jimenez RN - 06/20/2024 5:49 AM EST Problem: Pain - Adult Goal: Verbalizes/displays adequate comfort level or baseline comfort level Outcome: Progressing Problem: Safety - Adult Goal: Free from fall injury Outcome: Progressing Problem: Discharge Planning Goal: Discharge to home or other facility with appropriate resources Outcome: Progressing Problem: Chronic Conditions and Co-morbidities Goal: Patient's chronic conditions and co-morbidity symptoms are monitored and maintained or improved Outcome: Progressing Problem: Musculoskeletal - Adult Goal: Return mobility to safest level of function Outcome: Progressing Goal: Maintain proper alignment of affected body part Outcome: Progressing Goal: Return ADL status to a safe level of function Outcome: Progressing [facility] [id number] NoteHospitalist Progress Note 06/19/2024 Assessment/Plan: Data: (CAT1) Reviewed 2 notes from different specialty or health system (each=1). (LOW: 2x CAT1 or independent historian MOD: 3x CAT1 or 1x CAT3 EXTENSIVE: 3x CAT1 and 1x CAT3) Right periprosthetic distal femur fracture s/p right fourth 06/17 -WBAT -Pain control -PT/OT -Will need 30 days of postop DVT PPx -Follow-up with Dr. Uribe in 2 weeks -Patient prefers to have elvin removed by PCP possible DM2 with hyperglycemia -Continue insulin at reduced doses. Monitor glucose and adjust insulin as needed CAD HLD Likely CKD 2: Renal function appears to be at baseline - PT/OT/CM/SW - delirium precautions: increase activity - DVT prophylaxis: enoxaparin and encourage ambulation Discharge Disposition: Anticipate DC home with home care likely in next 1-2 days pending therapy evaluations, pain control, set up of home environment Total time spent (which include face to face and non face to face encounters) : 36 minutes D/W patient's son Complexity: Acute illness with systemic symptoms (MOD). Multiple stable chronic illnesses (MOD). Risk: Admission to hospital-level care was considered or occurred (HIGH). Advance Directive: Full Code Toxic drug monitoring/narrow therapeutic index drug monitoring : # Drug name : # Route administered: # Method of monitoring: Subjective: Admit Date: 06/16/2024 PCP: No primary care provider on file. Room#: -5108/-5108 A Brief Hospital course: Patient is a 78-year-old female with history of remote bilateral TKA DM2, CAD, HLD, CKD who presented with right knee pain after mechanical fall from standing. She was on the steps and fell sideways hitting her head and knee, denies loss of consciousness. She was found to have right periprosthetic distal femur fracture. Orthopedic surgery consulted, she underwent R femur ORIF 06/17. Interval History: Sitting on commode. States she was able to have a bowel movement yesterday, still passing gas Having a lot of pain Nervous about going home given her weakness Adult diet Regular; 5 carb choices (75 gm/meal) 24HR INTAKE/OUTPUT: Intake/Output Summary (Last 24 hours) at 06/19/2024 1458 Last data filed at 06/19/2024 0335 Gross per 24 hour Intake 550 ml Output 350 ml Net 200 ml Past Medical History: Past Medical History: Diagnosis Date Asthma Diabetes mellitus (HCC) Disease of thyroid gland 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 LABS: CBC: Recent Labs 06/17/24 0611 06/18/24 0019 06/19/24 0334 WBC 6.8 8.3 9.9 RBC 3.31* 3.10* 2.83* HGB 10.4* 9.7* 9.0* HCT 31.5* 29.7* 28.1* MCV 95.2 95.8 99.3* RDW 14.3 14.6 14.6 PLT 185 198 179 BMP: Recent Labs 06/17/24 0240 06/17/24 0611 NA 140 139 K 4.3 4.4 CL 109* 109* CO2 23 24 BUN 30* 29* CREATININE 1.44* 1.52* GLUCOSE 165* 154* CALCIUM 9.5 9.4 ANIONGAP 8 6 LIVER PROFILE:No results for input(s): AST, ALT, BILITOT, ALKPHOS, PROT in the last 72 hours. No lab exists for component: LABALBU PT/INR: Recent Labs 06/17/24 0240 PROTIME 11.7 INR 1.0 CARDIAC ENZYMES: No results for input(s): TROPONINI in the last 72 hours. Procalcitonin: No results found for: PROCAL COVID-19 PCR: No results for input(s): COVID19 in the last 72 hours. Objective: Vitals: BP (!) 107/42 (BP Location: Left arm, Patient Position: Sitting) Pulse 69 Temp 36.6 ?C (97.9 ?F) (Temporal) Resp 17 Ht 5' 2 (1.575 m) Wt 190 lb 3.2 oz (86.3 kg) SpO2 95% BMI 34.79 kg/m? Pulse Ox: SpO2 Av.5 % Min: 94 % Max: 95 % Supplemental O2: O2 Flow Rate (L/min): 2 L/min Physical Exam Vitals and nursing note reviewed. Constitutional: Appearance: Normal appearance. Cardiovascular: Rate and Rhythm: Normal rate. Pulmonary: Effort: Pulmonary effort is normal. Abdominal: General: Abdomen is flat. Neurological: Mental Status: She is alert. Psychiatric: Mood and Affect: Mood normal. Behavior: Behavior normal. Medications: acetaminophen, 1,000 mg, Oral, q8h aspirin, 81 mg, Oral, Daily enoxaparin, 40 mg, SubCUTAneous, Daily insulin glargine, 46 Units, SubCUTAneous, Nightly insulin lispro, 0-18 Units, SubCUTAneous, TID WC And insulin lispro, 0-18 Units, SubCUTAneous, Nightly insulin regular, 30 Units, SubCUTAneous, TID WC lisinopril, 10 mg, Oral, Daily metoprolol succinate XL, 25 mg, Oral, Daily rosuvastatin, 20 mg, Oral, Nightly Extended Emergency Contact Information Primary Emergency Contact: Benedict Cintron Mobile Relation: Son Preferred language: Chinese 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 needed? No Secondary Emergency Contact: Jun Cintron Mobile Relation: Spouse Preferred language: Chinese 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 needed? No Audra Frias MD Division of Hospitalist Medicine [facility]12-14-2024 NoteOrtho Progress Note Patient: Carolyn Cintron Date of : 1945 Acct: [id number] PCP: No primary care provider on file. Date of Admission: 06/16/2024 Date of Service: Pt seen/examined on 06/19/2024 SUBJECTIVE: No acute events overnight. Resting comfortably in bed. Pain controlled, ambulating with assistance. Questions about rehab answered. OBJECTIVE: General: alert and oriented to person, place and time, well-developed and well-nourished, in no acute distress VITALS: BP (!) 107/42 (BP Location: Left arm, Patient Position: Sitting) Pulse 69 Temp 36.6 ?C (97.9 ?F) (Temporal) Resp 17 Ht 1.575 m (5' 2) Wt 86.3 kg (190 lb 3.2 oz) SpO2 95% BMI 34.79 kg/m? MSK exam: RLE: Dressing with mild saturation over the knee SILT s/s/sp/dp/t +motor HF/KE/DF/EHL/PF Palp DP pulse Negative Clarence bilaterally Lab Results Component Value Date WBC 9.9 06/19/2024 HGB 9.0 (L) 06/19/2024 HCT 28.1 (L) 06/19/2024 PLT 179 06/19/2024 NA 139 06/17/2024 K 4.4 06/17/2024 CL 109 (H) 06/17/2024 CREATININE 1.52 (H) 06/17/2024 BUN 29 (H) 06/17/2024 CO2 24 06/17/2024 INR 1.0 06/17/2024 HGBA1C 6.3 (H) 06/17/2024 Lab Results Component Value Date RH POS 06/17/2024 RH POS 06/17/2024 ASSESSMENT AND PLAN: This is a 78 y.o. female with R PPDFFx s/p ORIF on 06/17 -Operative plans: No further plans for surgery -Weight bearing: RLE: WBAT LLE: WBAT RUE: WBAT LUE: WBAT -Range of motion parameters: ROM as tolerated -Immobilization: No immobilization needed -Consults: None -Antibiotics: 24 hours of post op antibiotics. -Dressings: Keep dressings clean dry and intact for 5 days post operatively, then ok to leave open to air if incision is without drainage. -Other: None -Diet: no restrictions from ortho standpoint -Labs: Hgb 10.4 > 9.7> 9.0, CTM -PT/OT -PT recommended outpatient/post discharge?: Yes, for basic ADLs -Medical management, dvt ppx and pain control per primary -DVT ppx recommended?: Yes, 30 days of post operative DVT ppx recommended -Follow-up with Dr Uribe in 2 weeks -Ortho to sign off, please page the on-call resident with any further questions or concerns. Keith Alexandra MD 06/19/2024[facility]12-14-2024 Plan of care note* Care Plan - Reji Alves RN - 06/19/2024 3:39 AM EST Problem: Pain - Adult Goal: Verbalizes/displays adequate comfort level or baseline comfort level Outcome: Progressing Problem: Safety - Adult Goal: Free from fall injury Outcome: Progressing Problem: Discharge Planning Goal: Discharge to home or other facility with appropriate resources Outcome: Progressing Problem: Chronic Conditions and Co-morbidities Goal: Patient's chronic conditions and co-morbidity symptoms are monitored and maintained or improved Outcome: Progressing Problem: Musculoskeletal - Adult Goal: Return mobility to safest level of function Outcome: Progressing Goal: Maintain proper alignment of affected body part Outcome: Progressing Goal: Return ADL status to a safe level of function Outcome: Progressing [id number]* [facility] Care - [facility] - 06/18/2024 2:59 PM EST Educated patient on Home Care and services available. Patient is agreeable to receiving home care services at this time. Patient was given choice of home care agencies available in the area and is agreeable to having referrals made with agencies that staff the patients service location. Referrals have been sent via [employer]. Liaison to discuss available agencies to accept case with patient upon receiving responses. [id number] [facility]* [facility] Care - [facility] - 06/18/2024 2:59 PM EST Educated patient on Home Care and services available. Patient is agreeable to receiving home care services at this time. Patient was given choice of home care agencies available in the area and is agreeable to having referrals made with agencies that staff the patients service location. Referrals have been sent via [employer]. Liaison to discuss available agencies to accept case with patient upon receiving responses. [id number] Note* Care Coordination - Marlen Moon RN - 06/18/2024 1:43 PM EST Care Managment Initial Assessment Date: 06/18/2024 Patient Name: Carolyn Cintron : 1945 Patient Information Source of Information: Patient Cognition/Language: WFL - Within Functional Limits Permission given to speak with patient medical office representative/caregiver as indicated: Yes Confirmation of Payer with patient/family: Yes Payer Name: [employer] MEDICARE ADVANTAGE : No Confirmation of Primary Care Physician: Confirmed PCP Name: Ramón Coulter Seen in last 2 years?: Yes Primary Caregiver: Self If assistance needed, confirmed caregiver ready, willing and able to care for patient at discharge: Confirmed with: Living Arrangements Current Residence: House Number of Floors 1 Number of Entry Steps: (ramp) Bed/Bath Levels: Both first floor Facility: Facility Name: Plan to Return: Lives with: Spouse/significant other, Children (adult son) Support Systems: Spouse/significant other, Family members Activities of Daily Living Ambulation: Independent Bathing/Dressing: Independent Elimination/Continence/Toileting: Independent Feeding: Independent Who Assists with Activities of Daily Living: Instrumental Activities of Daily Living Prescription Coverage: Yes Pharmacy Used: [facility] in [place] Medication Management: Independent Transportation/Shopping: Independent Transportation Mode: Car Needs Assistance with Transportation at Discharge: No Meal Preparation: Independent Laundry/Cleaning: Independent Finances/Bill Paying: Independent Communication: Independent Types of Care Services/Equipment Utilized Care Services: Dialysis Type: Durable Medical Equipment: Walker, Cane (using cane mostly) Patient's Goal/Discharge Plan Patient expects to be discharged to: home with home care Discharge Planning Actions: Continue to follow Patient's Choice Rights and [employer] and Collaborative Relationships Disclosed as Indicated for Post-Acute Care: Interdisciplinary Team Engagement: Home Health Care, PT/OT Social Work Referral for: Additional Information: Met with patient at bedside - reviewed discharge plan, introduced self and role. Patient from home independent with husb and adult son. Patient states has insurance and able to afford medications. Help available at home and family will provide transportation home. PT eval- Continue to assess pending progress, Home with Home health PT, 24 hour supervision or amanda - OT eval Long-Term Facility, Home with Home health OT, Home with assist PRN, Continue to assess pending progress -discussed with patient and prefers to go home with home care- feels husb and son able to assist as needed- HC liaison notified Plan -Home with HC when medically stable. [facility] [id number] Note* Care Coordination - Marlen Moon RN - 06/18/2024 1:43 PM EST Care Managment Initial Assessment Date: 06/18/2024 Patient Name: Carolyn Cintron : 1945 Patient Information Source of Information: Patient Cognition/Language: WFL - Within Functional Limits Permission given to speak with patient medical office representative/caregiver as indicated: Yes Confirmation of Payer with patient/family: Yes Payer Name: [employer] MEDICARE ADVANTAGE : No Confirmation of Primary Care Physician: Confirmed PCP Name: Ramón Coulter Seen in last 2 years?: Yes Primary Caregiver: Self If assistance needed, confirmed caregiver ready, willing and able to care for patient at discharge: Confirmed with: Living Arrangements Current Residence: House Number of Floors 1 Number of Entry Steps: (ramp) Bed/Bath Levels: Both first floor Facility: Facility Name: Plan to Return: Lives with: Spouse/significant other, Children (adult son) Support Systems: Spouse/significant other, Family members Activities of Daily Living Ambulation: Independent Bathing/Dressing: Independent Elimination/Continence/Toileting: Independent Feeding: Independent Who Assists with Activities of Daily Living: Instrumental Activities of Daily Living Prescription Coverage: Yes Pharmacy Used: [facility] in [place] Medication Management: Independent Transportation/Shopping: Independent Transportation Mode: Car Needs Assistance with Transportation at Discharge: No Meal Preparation: Independent Laundry/Cleaning: Independent Finances/Bill Paying: Independent Communication: Independent Types of Care Services/Equipment Utilized Care Services: Dialysis Type: Durable Medical Equipment: Walker, Cane (using cane mostly) Patient's Goal/Discharge Plan Patient expects to be discharged to: home with home care Discharge Planning Actions: Continue to follow Patient's Choice Rights and [employer] and Collaborative Relationships Disclosed as Indicated for Post-Acute Care: Interdisciplinary Team Engagement: Home Health Care, PT/OT Social Work Referral for: Additional Information: Met with patient at bedside - reviewed discharge plan, introduced self and role. Patient from home independent with husb and adult son. Patient states has insurance and able to afford medications. Help available at home and family will provide transportation home. PT eval- Continue to assess pending progress, Home with Home health PT, 24 hour supervision or amanda - OT eval Long-Term Facility, Home with Home health OT, Home with assist PRN, Continue to assess pending progress -discussed with patient and prefers to go home with home care- feels husb and son able to assist as needed- HC liaison notified Plan -Home with HC when medically stable. [facility]12-13-2024 NotePHYSICAL THERAPY [facility] Initial Evaluation Name/MRN: Carolyn Cintron ([id number]) Evaluation Date: 06/18/2024 Date of : 1945 Admission Date: 06/16/2024 11:08 PM Age: 78 y.o. Room/Bed: 5108/H-5108 A Discharge Recommendation: Continue to assess pending progress, Home with Home health PT, 24 hour supervision or assist Equipment Needed: No Assessment IMPRESSION: Pt is a 78 year old patient admitted for closed fracture of right femur and s/p R PPDFFx s/p ORIF on 06/17 . Pt is WBAT on RLE and ROM as tolerated. Pt, prior to admission, was living at home with and son (Works 1st shift M-F). Pt normally independent. Pt requires min assist x1 for transfers/ambulation. Pt fatigues quickly during session. Needs cueing on hand placement for proper transfers. Continue to assess pending progress, anticipate home with home PT and 24 hour assist Admitting Diagnosis: R PPDFFx s/p ORIF on 06/17 Prognosis: good Performance Deficits /Impairments: Increased Pain, Decreased Functional Mobility, Decreased Strength, Decreased Endurance, Decreased Balance, and Decreased ROM Decision Making: Medium Complexity Subjective Pt agreeable for therapy. Pt eager to get out of bed due to sore buttock. Pt reports 9/10 right knee pain with activity (RN giving pain meds at end of session) Past Medical History: Past Medical History: Diagnosis Date Asthma Diabetes mellitus (HCC) Disease of thyroid gland 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 Past Surgical History: Past Surgical History: Procedure Laterality Date BACK SURGERY 3 spinal surgeries CARPAL TUNNEL RELEASE Bilateral 1974 CHOLECYSTECTOMY 1984 HYSTERECTOMY 1989 JOINT REPLACEMENT Bilateral 10years ago Admission Diagnosis: Patient Active Problem List Diagnosis Date Noted Closed fracture of distal end of right femur, unspecified fracture morphology, initial encounter ([facility]) 06/17/2024 Medical Precautions: No active isolations Proper PPE donned/doffed in accordance with facility standards. Fall Risk: Rosales Fall Risk Score: 70 (Medium Risk) Rosales Fall Risk Score: 70 (High Risk) Precautions/Restrictions: Right LE Weight Bearing: Weight Bearing As Tolerated ROM as tolerated Family/Caregiver Present: none Overall Cognitive Status: WFL Overall Orientation Status: Oriented x4 Vision: wears glasses at all times and and are being used during the eval Hearing: normal Social/Functional History Patient admitted from home. Lives With: Spouse and Son Type of Home: single family home Home Layout: Single Level Home Home Access: Stairs to Enter with Rails (# of stairs: 2-3); has a ramp into the home Bathroom Shower/Tub: Shower Chair with Back, Walk in Shower, and Grab Bars Toilet: Handicap Height Home Equipment: front wheeled walker, cane, and grab bars Homemaking Responsibilities: Independent Receives Help From: Spouse and Family Active Mass Communications Instructor: No Prior Level of Function Prior Level of ADL Function: Independent Prior Level of Mobility: Independent; Device: None Prior Level of Transfers: Independent Objective Lower Extremity Assessment AROM: WFL - LLE is WFL; right ankle is WFL; right knee is grossly 30 degrees flexed in bed; 80 degrees flexed in bed; SLR <10 degrees. Strength: Exceptions: LLE is 4+/5 ; right ankle is 4-/5; knee is 2- to 2+/5 during session; SLR is 2-/5 on LLE. Sensation: Impaired: Pt reports foot is only numb but able to feel light when tested. Balance: Balance During Session: Posture: fair Sitting - Static: Contact Guard Sitting - Dynamic: Contact Guard Standing - Static: Contact Guard Standing - Dynamic: Contact Guard Bed Mobility: Supine to sit: Contact Guard Pt needs very little assist to move LLE. Transfers Sit to stand: Min Assist Stand to sit: Min Assist Performed 5 sit to stand transfers. Pt needs cueing on hand placement and proper placement of LLE with transfer. Fatigues quickly Ambulation Ambulation 1 Assistive device(s) used: Front wheeled walker Assist level: Contact Guard Distance (ft): 11 feet x1, 12 feet x1 Quality of gait: uneven step length, instability through all phases Outcome Measures AM-PAC How much HELP from another person do you currently need Turning from your back to your side while in a flat bed without using bedrails?: A Little Moving from lying on your back to sitting on the side of a flat bed without using bedrails?: A Little Moving to and from a bed to a chair (including a wheelchair)?: A Little Standing up from a chair using your arms (wheelchair or bedside chair)?: A Lot Walking in a hospital room?: A Lot Stair climbing assessed?: No AM-PAC Inpatient Mobility Raw Score (No Stairs) : 13 JH-HLM -HLM Score: Walked 25 ft or more (i.e. walked outside of room) Plan Pt would benefit from skilled acute PT services to address Strengthening, ROM, Gait Training, Balance Training, Functional Mobility Training, Endurance Training, (more content not included)...[facility]12-13-2024 Note Hospitalist Progress Note 06/18/2024 Assessment/Plan: Data: (CAT1) Reviewed 2 notes from different specialty or health system (each=1). (LOW: 2x CAT1 or independent historian MOD: 3x CAT1 or 1x CAT3 EXTENSIVE: 3x CAT1 and 1x CAT3) Right periprosthetic distal femur fracture s/p right fourth 06/17 -WBAT -Pain control -PT/OT -Will need 30 days of postop DVT PPx -Follow-up with Dr. Uribe in 2 weeks -Patient prefers to have elvin removed by PCP possible DM2 with hyperglycemia -Continue insulin at reduced doses. Monitor glucose and adjust insulin as needed CAD HLD Likely CKD 2: Renal function appears to be at baseline - PT/OT/CM/SW - delirium precautions: increase activity - DVT prophylaxis: enoxaparin and encourage ambulation Discharge Disposition: Anticipate DC pending therapy evaluations, pain control Total time spent (which include face to face and non face to face encounters) : 36 minutes Complexity: Acute illness with systemic symptoms (MOD). Multiple stable chronic illnesses (MOD). Risk: Admission to hospital-level care was considered or occurred (HIGH). Advance Directive: Full Code Toxic drug monitoring/narrow therapeutic index drug monitoring : # Drug name : # Route administered: # Method of monitoring: Subjective: Admit Date: 06/16/2024 PCP: No primary care provider on file. Room#: H-5108/H-5108 A Brief Hospital course: Patient is a 78-year-old female with history of remote bilateral TKA DM2, CAD, HLD, CKD who presented with right knee pain after mechanical fall from standing. She was on the steps and fell sideways hitting her head and knee, denies loss of consciousness. She was found to have right periprosthetic distal femur fracture. Orthopedic surgery consulted, she underwent R femur ORIF 06/17. Interval History: Worked with therapy earlier today No BM yet, having a lot of gas Ate without issue Wants to work with therapy a little more to see if she would feel comfortable discharge home Adult diet Regular; 5 carb choices (75 gm/meal) 24HR INTAKE/OUTPUT: Intake/Output Summary (Last 24 hours) at 06/18/2024 1214 Last data filed at 06/18/2024 0559 Gross per 24 hour Intake 917 ml Output 1020 ml Net -103 ml Past Medical History: Past Medical History: Diagnosis Date Asthma Diabetes mellitus (HCC) Disease of thyroid gland 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 LABS: CBC: Recent Labs 06/17/24 0240 06/17/24 0611 06/18/24 0019 WBC 7.4 6.8 8.3 RBC 3.41* 3.31* 3.10* HGB 10.7* 10.4* 9.7* HCT 32.7* 31.5* 29.7* MCV 95.9 95.2 95.8 RDW 14.1 14.3 14.6 PLT 190 185 198 BMP: Recent Labs 06/17/24 0240 06/17/24 0611 NA 140 139 K 4.3 4.4 CL 109* 109* CO2 23 24 BUN 30* 29* CREATININE 1.44* 1.52* GLUCOSE 165* 154* CALCIUM 9.5 9.4 ANIONGAP 8 6 LIVER PROFILE:No results for input(s): AST, ALT, BILITOT, ALKPHOS, PROT in the last 72 hours. No lab exists for component: LABALBU PT/INR: Recent Labs 06/17/24 024 PROTIME 11.7 INR 1.0 CARDIAC ENZYMES: No results for input(s): TROPONINI in the last 72 hours. Procalcitonin: No results found for: PROCAL COVID-19 PCR: No results for input(s): COVID19 in the last 72 hours. Objective: Vitals: BP (!) 113/45 (BP Location: Left arm, Patient Position: Lying) Pulse 68 Temp 36.2 ?C (97.1 ?F) (Temporal) Resp 16 Ht 5' 2 (1.575 m) Wt 190 lb 3.2 oz (86.3 kg) SpO2 98% BMI 34.79 kg/m? Pulse Ox: SpO2 Av.9 % Min: 96 % Max: 99 % Supplemental O2: O2 Flow Rate (L/min): 2 L/min Physical Exam Vitals and nursing note reviewed. Constitutional: Appearance: Normal appearance. Cardiovascular: Rate and Rhythm: Normal rate. Pulmonary: Effort: Pulmonary effort is normal. Abdominal: General: Abdomen is flat. Neurological: Mental Status: She is alert. Psychiatric: Mood and Affect: Mood normal. Behavior: Behavior normal. Medications: acetaminophen, 1,000 mg, Oral, q8h aspirin, 81 mg, Oral, Daily insulin glargine, 46 Units, SubCUTAneous, Nightly insulin regular, 0-18 Units, SubCUTAneous, q6h insulin regular, 30 Units, SubCUTAneous, TID WC lisinopril, 10 mg, Oral, Daily metoprolol succinate XL, 25 mg, Oral, Daily rosuvastatin, 20 mg, Oral, Nightly Extended Emergency Contact Information Primary Emergency Contact: Jun Cintron Mobile Relation: Spouse Preferred language: Chinese 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 needed? No Secondary Emergency Contact: Benedict Cintron Mobile Relation: Son Preferred language: Chinese 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 needed? No Audra Frias MD Division of Hospitalist Medicine [facility]12-13-2024 NoteOCCUPATIONAL THERAPY [facility] Initial Evaluation Name/MRN: Carolyn Cintron ([id number]) Evaluation Date: 06/18/2024 Date of : 1945 Admission Date: 06/16/2024 11:08 PM Age: 78 y.o. Room[facility]: [facility] A Discharge Recommendation: Long-Term Facility, Home with Home health OT, Home with assist PRN, Continue to assess pending progress Assessment IMPRESSION: Pt admitted to [facility] for R PPDFFx s/p ORIF on 06/17 after falling down 3 stairs. Prior to admission, was living with son and spouse and independent for ADLs and functional mobility. Now required CGA for all STS transfers and functional mobility of short distances. Pt able to complete LB dressing of LLE, however needs assist for RLE due to pain and impaired ROM. No assist needed for UB ADLs. The pt is most limited by pain, generalized weakness, and balance and would benefit from continued therapy services to maximize independence in ADLs and safe transfers. If pt were to leave today, SNF level therapy would be recommended. Pt may progress to home going with home OT and assist as needed throughout hospital stay. Will feel more comfortable recommending home if pt is able to tolerate functional mobility and toileting tasks at toilet with SBA. Reports family is able to assist as needed. Will continue to assess pending progress. Admitting Diagnosis: R PPDFFx s/p ORIF on 06/17 after a fall Performance Deficits /Impairments: Increased Pain, Decreased Functional Mobility, Decreased ADL status, Decreased Strength, Decreased Endurance, and Decreased Balance Prognosis: Good Decision Making: Medium Complexity Subjective Pt seen sitting upright in chair, agreeable to therapy. Left in chair at end of session with all needs within reach. Pain: 0-10 pain scale: 3/10 Location: RLE Past Medical History: Past Medical History: Diagnosis Date Asthma Diabetes mellitus (HCC) Disease of thyroid gland 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 Past Surgical History: Past Surgical History: Procedure Laterality Date BACK SURGERY 3 spinal surgeries CARPAL TUNNEL RELEASE Bilateral 1974 CHOLECYSTECTOMY 1984 HYSTERECTOMY 1990 JOINT REPLACEMENT Bilateral 10years ago Admission Diagnosis: Patient Active Problem List Diagnosis Date Noted Closed fracture of distal end of right femur, unspecified fracture morphology, initial encounter ([facility]) 06/17/2024 Medical Precautions: No active isolations Proper PPE donned/doffed in accordance with facility standards. Fall Risk: Rosales Fall Risk Score: 70 (Medium Risk) Rosales Fall Risk Score: 70 (High Risk) Precautions/Restrictions: Right LE Weight Bearing: Weight Bearing As Tolerated Left LE Weight Bearing: Weight Bearing As Tolerated Thao catheter Family/Caregiver Present: none Overall Cognitive Status: WFL Overall Orientation Status: Oriented x4 Social/Functional History Patient admitted from home. Lives With: Spouse and Son Type of Home: single family home Home Layout: Single Level Home Home Access: Stairs to Enter with Rails (# of stairs: 2-3) Bathroom Shower/Tub: Shower Chair with Back, Walk in Shower, and Grab Bars Toilet: Handicap Height Home Equipment: front wheeled walker, cane, and grab bars Homemaking Responsibilities: Independent Receives Help From: Spouse and Family Active Mass Communications Instructor: No Spouse provides transportation Prior Level of Function Prior Level of ADL Function: Independent Prior Level of Mobility: Independent; Device: None Prior Level of Transfers: Independent Objective ADLs LE Dressing: Mod Assist, able to don L sock, needs assist for R sock UE Dressing: SBA Feeding: SBA Upper Extremity Assessment AROM: WFL PROM: WFL Strength: Exceptions: 3+/5 BUE Vision: wears glasses at all times and and are being used during the eval Hearing: normal Bed Mobility NT as pt sitting upright in chair Transfers/Functional Mobility Sit to stand: Contact Guard Stand to sit: Contact Guard Sitting balance: Independent Standing balance: Contact Guard Functional mobility: Contact Guard Pt completes functional mobility ~10 feet with therapist. Slow, shuffled steps due to guarding and pain. Device(s) used: Front wheeled walker Hand dominance: Right AM-PAC AM-PAC Inpatient Daily Activity Raw Score: 21 ADL Inpatient CMS G-Code Modifier: CJ Plan Pt would benefit from skilled acute OT services to address Strengthening, ROM, Gait Training, Balance Training, Self-Care/ADL Training, Functional Mobility Training, Endurance Training, Safety Education and Training, and Home Management Training. Frequency: 4x/week for 4 weeks Barriers: Pain, Impaired balance, Lower extremity weakness, Upper extremity weakness, and Decreased endurance Safety/Education Safety Safety Devices in place: All fall risk precautions in place, call light within reach, left in chair, gait belt, and patient at risk for falls Restraints: No Education Education Given To: patient (more content not included)...[facility]12-13-2024 Note* Care Coordination - Marlen Moon RN - 06/18/2024 7:48 AM EST Msg sent to therapy need PT/OT eval completed to assist with discharge planning [id number]* Care Coordination - Marlen Moon RN - 06/18/2024 7:48 AM EST Msg sent to therapy need PT/OT eval completed to assist with discharge planning [id number] [facility] Discharge instructions* Discharge Instructions* Keith Alexandra MD - 06/18/2024 6:29 AM EST Images from the original note were not included. General Orthopedic Discharge Instructions The following instructions have been prepared to help you when you leave the hospital. These guidelines are for the post surgery period. -Activity & Weightbearing: -Weight bearing as tolerated to your right leg. Meaning it is ok to put full weight on your leg forwalking and other needs. -Ok for full range of motion in your injured leg as you can tolerate it. We encourage frequent stretching and moving the hip, knee, and ankle to prevent stiffness. -Ease into normal activity as tolerated. Avoid heavy lifting/pulling/otherwise strenuous activity. -Wound Care and Hygiene: Keep bandaging clean and dry. Ok to change dressings as needed for saturation. Ok to remove bandaging/dressings 5 days after surgery. At this point, if incision is clean and without drainage it is okto go without any bandaging. If it is draining, reapply new bandaging. -Immobilization Not applicable -Pain Control: -Pain control: Alternate Tylenol (acetaminophen) and Ibuprofen every 4 hours. For example, take Tylenol at 7am and Ibuprofen at 11am. Then take Tylenol at 3pm and Ibuprofen at 7pm. Take narcotic medicine (oxycodone, hydrocodone, vicodin, norco, percocet, tramadol, etc.) for breakthrough pain only. Make sure to double check that narcotic pain medicine does not also contain acetaminophen as exceeding greater than 3000mg a day is unsafe. -Elevate your injured extremity (meaning above the level of your heart) to reduce swelling. Use iceas needed to help reduce pain and swelling. Do not put ice directly on the skin. Do not leave ice on for more than 30 minutes at a time. -Medications: -See medication instructions. Please be sure to read and understand the information provided by your pharmacy. Ask your Pharmacist if you have any questions. -Precautions: call your doctor or return to the emergency department IF: -You develop excessive bleeding from your incision -You develop signs of worsening infection including but not limited to: increasing pain, redness, swelling, purulent drainage, and/or a fever -Anesthesia Precautions: -Do Not operate any vehicle (automobile, bicycle, motorcycle) or power tools for 24 hours. Do Not drink alcoholic beverages for 24 hours. As precaution to prevent post-operative nausea and vomiting, start your diet with liquids, then progress to light foods. If tolerated, resume normal diet. -Follow up visit: -Follow-up in clinic with Dr. Uribe for a visit 2 weeks after the date of your surgery. The officecontact information is provided in your paperwork. * Discharge Instr - Activity* Denis De Leon DO - 06/21/2024 12:59 PM EST As tolerated * Discharge Instr - DIANA* Ryann Wellington RN - 06/21/2024 1:48 PM EST documented in this [facility]12-13-2024 NoteOrtho Progress Note Patient: Carolyn Cintron Date of : 1945 Acct: [id number] PCP: No primary care provider on file. Date of Admission: 06/16/2024 Date of Service: Pt seen/examined on 06/18/2024 SUBJECTIVE: No acute events overnight. Resting comfortably in bed. Pain well Controlled. States the block is still working and still has subjective numbness in her leg. Would like to have PCP remove elvin in a few weeks if able to minimize trips to [place] from [facility]. OBJECTIVE: General: alert and oriented to person, place and time, well-developed and well-nourished, in no acute distress VITALS: BP (!) 113/45 (BP Location: Left arm, Patient Position: Lying) Pulse 68 Temp 36.2 ?C (97.1 ?F) (Temporal) Resp 16 Ht 1.575 m (5' 2) Wt 86.3 kg (190 lb 3.2 oz) SpO2 98% BMI 34.79 kg/m? MSK exam: RLE: Dressings c/d/I SILT s/s/sp/dp/t +motor HF/KE/DF/EHL/PF Palp DP pulse Negative Clarence bilaterally Lab Results Component Value Date WBC 8.3 06/18/2024 HGB 9.7 (L) 06/18/2024 HCT 29.7 (L) 06/18/2024 PLT 198 06/18/2024 NA 139 06/17/2024 K 4.4 06/17/2024 CL 109 (H) 06/17/2024 CREATININE 1.52 (H) 06/17/2024 BUN 29 (H) 06/17/2024 CO2 24 06/17/2024 INR 1.0 06/17/2024 HGBA1C 6.3 (H) 06/17/2024 Lab Results Component Value Date RH POS 06/17/2024 RH POS 06/17/2024 ASSESSMENT AND PLAN: This is a 78 y.o. female with R PPDFFx s/p ORIF on 06/17 -Operative plans: No further plans for surgery -Weight bearing: RLE: WBAT LLE: WBAT RUE: WBAT LUE: WBAT -Range of motion parameters: ROM as tolerated -Immobilization: No immobilization needed -Consults: None -Antibiotics: 24 hours of post op antibiotics. -Dressings: Keep dressings clean dry and intact for 5 days post operatively, then ok to leave open to air if incision is without drainage. -Other: None -Diet: no restrictions from ortho standpoint -Labs: Hgb 10.4 > 9.7, CTM -PT/OT -PT recommended outpatient/post discharge?: Yes, for basic ADLs -Medical management, dvt ppx and pain control per primary -DVT ppx recommended?: Yes, 30 days of post operative DVT ppx recommended -Follow-up with Dr Uribe in 2 weeks -Ortho to follow. Keith Alexandra MD 06/18/2024[facility]12-13-2024 Plan of care note* Care Plan - Reji Alves RN - 06/18/2024 3:37 AM EST Problem: Pain - Adult Goal: Verbalizes/displays adequate comfort level or baseline comfort level Outcome: Progressing Problem: Safety - Adult Goal: Free from fall injury Outcome: Progressing Problem: Discharge Planning Goal: Discharge to home or other facility with appropriate resources Outcome: Progressing Problem: Chronic Conditions and Co-morbidities Goal: Patient's chronic conditions and co-morbidity symptoms are monitored and maintained or improved Outcome: Progressing Problem: Musculoskeletal - Adult Goal: Return mobility to safest level of function Outcome: Progressing Goal: Maintain proper alignment of affected body part Outcome: Progressing Goal: Return ADL status to a safe level of function Outcome: [facility]ing [id number]* Perioperative Nursing Note - Tiki Lepe RN - 06/17/2024 3:15 PM EST Report called to PRINCE Sánchez on H6. [facility]12-12-2024 Note* Perioperative Nursing Note - Tiki Lepe RN - 06/17/2024 3:15 PM EST Report called to PRINCE Sánchez on H6. [facility]12-12-2024 NotePatient: Carolyn Cintron Procedure Summary Date: 06/17/24 Room / Location: [address] Operating Room Anesthesia Start: 1144 Anesthesia Stop: 1329 Procedures: OPEN REDUCTION INTERNAL FIXATION FEMORAL FRACTURE DISTAL END (Right: Thigh - Leg Upper) OPEN REDUCTION INTERNAL FIXATION FEMORAL SHAFT FRACTURE WITH INTRAMEDULLARY ZAINA RETROGRADE (Right: Thigh - Leg Upper) Diagnosis: Closed fracture of distal end of right femur, unspecified fracture morphology, initial encounter ([facility]) Surgeons: Mika Uribe MD Responsible Provider: Wisam Irvin MD Anesthesia Type: general, regional ASA Status: 3 Anesthesia Type: general, regional Vitals Value Taken Time BP 120/39 06/17/24 1400 Temp 36.7 ?C (98.1 ?F) 06/17/24 1330 Pulse 63 06/17/24 1407 Resp 16 06/17/24 1330 SpO2 98 % 06/17/24 1407 Vitals shown include unfiled device data. Anesthesia Post Evaluation Patient location during evaluation: PACU Patient participation: complete - patient participated Level of consciousness: awake and alert Pain management: satisfactory to patient Airway patency: patent Dental Injury: no Cardiovascular status: acceptable, blood pressure returned to baseline and hemodynamically stable Respiratory status: acceptable and spontaneous ventilation Hydration status: euvolemic Nausea/Vomiting: controlled No notable events documented. Patient can be discharged once all PACU criteria has been met.[facility]12-12-2024 NotePatient: Carolyn Cintron Procedure Summary Date: 06/17/24 Room / Location: [facility] OR [address] [place] [address] Operating Room Anesthesia Start: 1144 Anesthesia Stop: 1329 Procedures: OPEN REDUCTION INTERNAL FIXATION FEMORAL FRACTURE DISTAL END (Right: Thigh - Leg Upper) OPEN REDUCTION INTERNAL FIXATION FEMORAL SHAFT FRACTURE WITH INTRAMEDULLARY ZAINA RETROGRADE (Right: Thigh - Leg Upper) Diagnosis: Closed fracture of distal end of right femur, unspecified fracture morphology, initial encounter ([facility]) Surgeons: Mika Uribe MD Responsible Provider: Wisam Irvin MD Anesthesia Type: general, regional ASA Status: 3 Anesthesia Type: general, regional Vitals Value Taken Time BP 120/39 06/17/24 1400 Temp 36.7 ?C (98.1 ?F) 06/17/24 1330 Pulse 67 06/17/24 1406 Resp 16 06/17/24 1330 SpO2 98 % 06/17/24 1406 Vitals shown include unfiled device data. Anesthesia Post Evaluation Patient location during evaluation: PACU Patient participation: complete - patient participated Level of consciousness: awake and alert Pain management: satisfactory to patient Multimodal analgesia pain management approach Airway patency: patent Two or more strategies used to mitigate risk of obstructive sleep apnea Cardiovascular status: acceptable and hemodynamically stable Respiratory status: acceptable Hydration status: acceptable No notable events documented. MIPS #430 PONV Patient received an inhalational anesthetic (4554F) Patient does not exhibit three or more risk factors for PONV (X0430)) MIPS # 424 Perioperative Temperature Management Anesthesia time was 60 minutes or longer (4255F) Anesthesai administered was General (inhalational or TIVA) or Neuraxial block (X0424) At least one body temperature greater than 95.8F/35.5C achieved within the 30 mins immediately prior to or the 15 minutes immediately following anesthesia end time (G9771) MIPS #477 Multimodal Pain Management Not emergent case Patient was administered multimodal pain management (two or more drugs and/or interventions excluding systemic opioids) in the periopeartive period occurring at some time between 6 hours prior to anesthesia start time until discharged from PACU (G2148) MIPS #404 Anesthesiology Smoking Abstinence The patient is not a current smoker (e.g. cigarette, cigar, pipe, e-cigarette/vaping/marijuana) If no stop here (XX404) I completed my handoff to the receiving clinician during which we: 1. Identified the patient 2. Identified the responsible provider 3. Reviewed the pertinent medical history 4. Discussed the surgical course 5. Reviewed intra-op anesthesia management and issues during anesthesia 6. Set expectations for post-procedure period 7. Allowed opportunity for questions and acknowledgement of understanding.[facility]12-12-2024 NoteAirway Date/Time: 06/17/2024 11:52 AM Urgency: scheduled Airway not difficult General Information and Staff Patient location during procedure: Procedural Resident/LUMPIA WRAPPER MAKER: Venkat Sellers APRN - LUMPIA WRAPPER MAKER Performed: LUMPIA WRAPPER MAKER Indications and Patient Condition Indications for airway management: anesthesia Sedation level: Asleep Preoxygenated: yes Patient position: sniffing Mask difficulty assessment: 1 - vent by mask Final Airway Details Final airway type: supraglottic airway Successful airway: Igel Size 4 Number of attempts at approach: 1[facility]12[facility]* Op Note - iMka Uribe MD - 06/17/2024 11:[address] [facility] [address] [facility] [address] Dept: [phone] Loc: [phone] Operative Report Patient Name: Carolyn Cintron Date of : 1945 Date of Surgery: 06/17/24 Pre-operative diagnosis: Right extra-articular distal femur fracture Post-operative diagnosis: Same Procedure(s): Retrograde right femoral nail Surgeon: Mika Uribe M.D. Marketing Teacher(s): Keith Alexandra M.D. and Paresh Cordon M.D. Anesthesia: General EBL: 200 cc IVF: Crystalloid Medications: Ancef 2 grams IV Implants: Synthes retrograde femoral nail with lateral plate glass grinder and locking screws, 12mm x36cm nail Clinical History/Indication for Surgery The patient is a 78 y.o. year old female who was presents for operative fixation of a right femur fracture. Typical indications for surgery were reviewed and retrograde nailing was recommended. Risksof surgery in general were reviewed including, but not limited to, infection, nonunion, need for additional procedures, failure of fixation which would require revision, damage to normal structures as well as medical complications such as GA, stroke, PE, DVT, and even . Patient and any family present were given opportunity to ask questions and consider her options ultimately electing to proceed with surgery. No guarantees were given or implied. Operative Narration The patient was identified in the pre-operative holding area. The surgical site was identified and marked. Informed consent was obtained. The patient was then brought to the operating room and placedsupine on the operating table. Anesthesia was administered and care of the head, neck, and airway was maintained by the anesthesia staff throughout the entire procedure. All bony prominences were identified and padded. The operative leg was prepped and draped in the usual sterile fashion. A surgical timeout was performed. Antibiotics were confirmed to have been given. Lateral approach was made and the vastus elevated anteriorly. The fracture was clamped and two cables placed to compress the fracture. While passing the cables, I could directly palpate the passer iz[place] on bone to ensure no soft tissue was between the passer/cable and bone. These were tightened which held an anatomic reduction. A patellar tendon split technique was used with the tendon split in the midportion.. The 3.2mm guide pin was placed under AP and lateral fluoroscopic guidance. Once correctly positioned the entry reamer was passed over the pin. The long ball-tipped guidewire was passed across fracture and centered in the proximal femur. With the fracture at the correct length, the length of the nail was measured.Sequetial reaming was performed until chatter was obtained within the femur. The correct length anddiameter nail was then impacted and the nail confirmed to be buried beneath the joint using lateralfluoroscopy of the knee. A perfect lateral image of the knee was obtained and the nail rotated until the lateral to medial holes in the nail were in a perfect king island orientation, indicating correct nail rotation relative to the distal femur. The lateral plate glass grinder was placed and fine adjustment to rotation made until the plate was sitting flush with the lateral cortex of the distal femur. The oblique locking screws were drilled measured and filled to lock the nail to the distal segment. Both optilink screws were placed at this time to fix the plate to the nail. Final confirmation of the length, alignment and rotation was performed and proximal nail locking was performed using perfect king island technique. The 3.5mm distal locking screws were then placed to maximize distal fixation. Final films were obtained and saved. There was no evidence of femoral neck fracture noted intra-operatively. All incisions were irrigated and closed in a layered fashion. Sterile dressings were applied. Length and rotation were again assessed compared to the contralateral leg and were found to be grossly symmetric. Once the patient was awakened from anesthesia, they were transported to the PACU in stable condition, having tolerated surgery well with no immediate complications. Postoperative Plan WBAT right leg Abx x 24hrs DVT prophylaxis Follow up 2wks This operative report was prepared and signed by Mika Uribe MD at 06/17/24, 2:46 PM [id number]* Op Note - Mika Uribe MD - 06/17/2024 11:43 AM EST [facility] [address] [facility] [address] Dept: [phone] Loc: [phone] Operative Report Patient Name: Carolyn Cintron Date of : 1945 Date of Surgery: 06/17/24 Pre-operative diagnosis: Right extra-articular distal femur fracture Post-operative diagnosis: Same Procedure(s): Retrograde right femoral nail Surgeon: Mika Uribe M.D. Marketing Teacher(s): Keith Alexandra M.D. and Paresh Cordon M.D. Anesthesia: General EBL: 200 cc IVF: Crystalloid Medications: Ancef 2 grams IV Implants: Synthes retrograde femoral nail with lateral plate glass grinder and locking screws, 12mm x36cm nail Clinical History/Indication for Surgery The patient is a 78 y.o. year old female who was presents for operative fixation of a right femur fracture. Typical indications for surgery were reviewed and retrograde nailing was recommended. Risksof surgery in general were reviewed including, but not limited to, infection, nonunion, need for additional procedures, failure of fixation which would require revision, damage to normal structures as well as medical complications such as GA, stroke, PE, DVT, and even . Patient and any family present were given opportunity to ask questions and consider her options ultimately electing to proceed with surgery. No guarantees were given or implied. Operative Narration The patient was identified in the pre-operative holding area. The surgical site was identified and marked. Informed consent was obtained. The patient was then brought to the operating room and placedsupine on the operating table. Anesthesia was administered and care of the head, neck, and airway was maintained by the anesthesia staff throughout the entire procedure. All bony prominences were identified and padded. The operative leg was prepped and draped in the usual sterile fashion. A surgical timeout was performed. Antibiotics were confirmed to have been given. Lateral approach was made and the vastus elevated anteriorly. The fracture was clamped and two cables placed to compress the fracture. While passing the cables, I could directly palpate the passer izabela on bone to ensure no soft tissue was between the passer/cable and bone. These were tightened which held an anatomic reduction. A patellar tendon split technique was used with the tendon split in the midportion.. The 3.2mm guide pin was placed under AP and lateral fluoroscopic guidance. Once correctly positioned the entry reamer was passed over the pin. The long ball-tipped guidewire was passed across fracture and centered in the proximal femur. With the fracture at the correct length, the length of the nail was measured.Sequetial reaming was performed until chatter was obtained within the femur. The correct length anddiameter nail was then impacted and the nail confirmed to be buried beneath the joint using lateralfluoroscopy of the knee. A perfect lateral image of the knee was obtained and the nail rotated until the lateral to medial holes in the nail were in a perfect king island orientation, indicating correct nail rotation relative to the distal femur. The lateral plate glass grinder was placed and fine adjustment to rotation made until the plate was sitting flush with the lateral cortex of the distal femur. The oblique locking screws were drilled measured and filled to lock the nail to the distal segment. Both optilink screws were placed at this time to fix the plate to the nail. Final confirmation of the length, alignment and rotation was performed and proximal nail locking was performed using perfect king island technique. The 3.5mm distal locking screws were then placed to maximize distal fixation. Final films were obtained and saved. There was no evidence of femoral neck fracture noted intra-operatively. All incisions were irrigated and closed in a layered fashion. Sterile dressings were applied. Length and rotation were again assessed compared to the contralateral leg and were found to be grossly symmetric. Once the patient was awakened from anesthesia, they were transported to the PACU in stable condition, having tolerated surgery well with no immediate complications. Postoperative Plan WBAT right leg Abx x 24hrs DVT prophylaxis Follow up 2wks This operative report was prepared and signed by Mika Uribe MD at 06/17/24, 2:46 PM [facility]12-12-2024 NotePeripheral Block Time Out: 06/17/2024 11:30 AM Start time: 06/17/2024 11:30 AM End time: 06/17/2024 11:33 AM Reason for block: at surgeon's request and post-op pain management Staffing Performed: LUMPIA WRAPPER MAKER Resident/LUMPIA WRAPPER MAKER: Марина Lyon APRN - KAREN Preanesthetic Checklist Completed: patient identified, IV checked, site marked, risks and benefits discussed, surgical consent and timeout performed Region: Lower Extremities Primary: fascia [place] Peripheral Block Patient position: supine Prep: ChloraPrep Patient monitoring: continuous pulse ox and heart rate O2: Nasal cannula Laterality: right Injection technique: single-shot Guidance: ultrasound guided -image retained in chart, tip of the needle identified by ultraound during injection. Needle Needle: 22G X 80 mm Additional Notes 06/17/2024 11:30 AM Assessment Injection assessment: negative aspiration for heme, no paresthesia on injection, incremental injection, local visualized surrounding nerve on ultrasound and transient paresthesias Heart rate change: no Slow fractionated injection: yes Required Documentation: Relevant anatomy identified (Nerves, Vessels, Muscles), Negative for blood on aspiration, Local anesthetic injected incrementally with intermittent aspiration every 5 mL, Normal resistance with injection, Local anesthetic spread visualized around nerves or plane., No EKG changes noted, No symptoms of toxicity and No paresthesias reported by patient during injectionMedications tebMRAZSzklym-slzmglqzfjd-mrrwfeyxspd (TAP) syringe - Injection 30 mL - 06/17/2024 11:30:00 [facility]12-12-2024 NotePeripheral Block Time Out: 06/17/2024 11:26 AM Patient location during procedure: pre-op Start time: 06/17/2024 11:26 AM End time: 06/17/2024 11:28 AM Reason for block: at surgeon's request and post-op pain management Staffing Performed: LUMPIA WRAPPER MAKER Resident/LUMPIA WRAPPER MAKER: CAR Palomares CRNA Preanesthetic Checklist Completed: patient identified, IV checked, site marked, risks and benefits discussed, surgical consent, monitors and equipment checked, pre-op evaluation and timeout performed Region: Lower Extremities Primary: Femoral Peripheral Block Patient position: supine Patient monitoring: heart rate, youth nutritional monitor and continuous pulse ox O2: Room air Laterality: right Injection technique: single-shot Guidance: ultrasound guided -image retained in chart, tip of the needle identified by ultraound during injection. Needle Needle: 22G X 80 mm Additional Notes 06/17/2024 11:26 AM Assessment Injection assessment: negative aspiration for heme, incremental injection, local visualized surrounding nerve on ultrasound and no paresthesia on injection Heart rate change: no Slow fractionated injection: no Required Documentation: Relevant anatomy identified (Nerves, Vessels, Muscles), Negative for blood on aspiration, Local anesthetic injected incrementally with intermittent aspiration every 5 mL, Normal resistance with injection, Local anesthetic spread visualized around nerves or plane., No EKG changes noted, No paresthesias reported by patient during injection, No symptoms of toxicity and Local anesthetic injected without difficultyMedications qqdQSQMIlmjzk-vvflggmyidz-fifjufhzemp (TAP) syringe - Injection 20 mL - 06/17/2024 11:26:00 [facility]12-12-2024 NotePatient: Carolyn Cintron Procedure Information Date/Time: 06/17/24 1055 Procedures: OPEN REDUCTION INTERNAL FIXATION FEMORAL FRACTURE DISTAL END (Right: Thigh - Leg Upper) OPEN REDUCTION INTERNAL FIXATION FEMORAL SHAFT FRACTURE WITH INTRAMEDULLARY ZAINA RETROGRADE (Right: Thigh - Leg Upper) Location: [address] Operating Room Surgeons: Mika Uribe MD Relevant Problems No relevant active problems Past Medical History: Past Medical History: No date: Asthma No date: Diabetes mellitus (HCC) No date: Disease of thyroid gland No date: 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 Past Surgical History: Past Surgical History: No date: BACK SURGERY Comment: 3 spinal surgeries 1974: CARPAL TUNNEL RELEASE; Bilateral 1985: CHOLECYSTECTOMY 1990: HYSTERECTOMY No date: JOINT REPLACEMENT; Bilateral Comment: 10years ago Social History: TOBACCO: reports that she has never smoked. She has never used smokeless tobacco. ETOH: has no history on file for alcohol use. Social History Substance and Sexual Activity Drug Use Not on file Family History: No family history on file. Screening: unknown Clinical information reviewed: Tobacco Allergies Meds Med Hx Surg Hx Fam Hx Soc Hx Physical Exam Airway Mallampati: II TM distance: >3 FB Neck ROM: full Mouth Open: normalendotracheal tube not in place Cardiovascular Dental (+) Upper Dentures Pulmonary Abdominal Anesthesia Plan patient is NPO appropriate Any family history or previous problems with anesthesia no ASA 3 general and regional Any family history or previous problems with anesthesia no The patient is not a current smoker. Anesthetic plan and risks discussed with patient. RYAN Screening Labs: Lab Results Component Value Date WBC 6.8 06/17/2024 HGB 10.4 (L) 06/17/2024 HCT 31.5 (L) 06/17/2024 MCV 95.2 06/17/2024 PLT 185 06/17/2024 Lab Results Component Value Date NA 139 06/17/2024 K 4.4 06/17/2024 CL 109 (H) 06/17/2024 CO2 24 06/17/2024 BUN 29 (H) 06/17/2024 CREATININE 1.52 (H) 06/17/2024 GLUCOSE 154 (H) 06/17/2024 CALCIUM 9.4 06/17/2024 EGFR 35.0 (L) 06/17/2024 Pain Score: 0 - No pain No echocardiogram results found for the past 14 days 06/16/24 ECG 12-LEAD 06/17/2024 8:15 AM (Final) Impression NORMAL SINUS RHYTHM Low voltage, extremity and precordial leads Electronically Signed On 06-17-2024 08:15:08 EST by Darrick Recinos Signed by: Darrick Recinos on 06/17/2024 8:15 AM [facility] Plan of care note * Care Plan - Princess Giron RN - 06/17/2024 10:41 AM EST Problem: Pain - Adult Goal: Verbalizes/displays adequate comfort level or baseline comfort level Outcome: Progressing Problem: Safety - Adult Goal: Free from fall injury Outcome: Progressing Problem: Discharge Planning Goal: Discharge to home or other facility with appropriate resources Outcome: Progressing Problem: Chronic Conditions and Co-morbidities Goal: Patient's chronic conditions and co-morbidity symptoms are monitored and maintained or improved Outcome: Progressing Problem: Musculoskeletal - Adult Goal: Return mobility to safest level of function Outcome: Progressing Goal: Maintain proper alignment of affected body part Outcome: Progressing Goal: Return ADL status to a safe level of function Outcome: Progressing [facility]12-12-2024 History and physical note* Christy Gasca Lillian, - 06/17/2024 4:30 AM EST Attending History and Physical Admit Date: 06/16/2024 PCP: No primary care provider on file. CHIEF COMPLAINT: right leg pain Reason for Admission: Periprosthetic distal femur fracture History Obtained From: patient HISTORY OF PRESENT ILLNESS: Carolyn is a 78 y.o. female with past medical history below who presents with chief complaint listed above. Pt missed a step and fell down the stairs, developed right knee pain immediately. She did also hit her head, CT scans without acute findings and not on blood thinners. Vitals stable in the ED, labs unremarkable except for a mild (presumed SALAS) with 1.4 serum cr. Will admit for further evaluation and management. Past Medical History: No past medical history on file. Past Surgical History: No past surgical history on file. Social History: Social History Socioeconomic History Marital status: Spouse name: Not on file Number of children: Not on file Years of education: Not on file Highest education level: Not on file Occupational History Not on file Tobacco Use Smoking status: Not on file Smokeless tobacco: Not on file Substance and Sexual Activity Alcohol use: Not on file Drug use: Not on file Sexual activity: Not on file Other Topics Concern Not on file Social History Narrative Not on file Social Drivers of Health Financial Resource Strain: Not on file Food Insecurity: No Food Insecurity (03/24/2024) Received from [facility] Hunger Vital Sign Worried About Running Out of Food in the Last Year: Never true Ran Out of Food in the Last Year: Never true Transportation Needs: No Transportation Needs (04/12/2024) Received from [facility] OASIS A1250: Transportation Lack of Transportation (Medical): No Lack of Transportation (Non-Medical): No Patient Unable or Declines to Respond: No Physical Activity: Not on file Stress: Not on file Social Connections: Not on file Intimate Partner Violence: Not At Risk (03/24/2024) Received from [facility] Humiliation, Afraid, Rape, and Kick questionnaire Fear of Current or Ex-Partner: No Emotionally Abused: No Physically Abused: No Sexually Abused: No Housing Stability: Low Risk (03/24/2024) Received from [facility] Housing Stability Vital Sign Unable to Pay for Housing in the Last Year: No Number of Times Moved in the Last Year: 1 Homeless in the Last Year: No Family History: No family history on file. Medications Prior to Admission: No current facility-administered medications on file prior to encounter. Current Outpatient Medications on File Prior to Encounter Medication Sig Dispense Refill insulin regular (NovoLIN R) 100 UNIT/ML pen Inject 40 Units under the skin 2 times daily (with meals). lisinopril 10 MG tablet Take 10 mg by mouth daily. metoprolol succinate XL (Toprol-XL) 25 MG 24 hr tablet Take 25 mg by mouth daily. aspirin (ASPIR) 81 MG EC tablet Take 81 mg by mouth daily. insulin degludec (Tresiba FlexTouch) 200 UNIT/ML injection Inject 55 Units under the skin daily. rosuvastatin (Crestor) 20 MG tablet Take 20 mg by mouth daily. Allergies: Not on File REVIEW OF SYSTEMS: Constitutional: Negative for fever, chills, activity change and unexpected weight change. HEENT: Negative for congestion, postnasal drip and sneezing. Eyes: Negative for itching and visual disturbance. Respiratory: Negative for apnea, cough, choking, chest tightness, shortness of breath, wheezing andstridor. Cardiovascular: Negative for chest pain. Gastrointestinal: Negative for nausea, vomiting, abdominal pain, diarrhea and blood in stool. Genitourinary: Negative for dysuria, frequency and flank pain. Musculoskeletal: Negative for myalgias and joint swelling. Skin: Negative for rash. Neurological: Negative for dizziness, tremors, seizures, syncope, facial asymmetry, speech difficulty, weakness, numbness and headaches. Hematological: Negative for adenopathy. Psychiatric/Behavioral: Negative for suicidal ideas, behavioral problems, self- injury and dysphoricmood. Vitals: BP 130/53 Pulse 65 Temp 37.2 C (98.9 F) (Oral) Resp 18 Ht 5' 2 (1.575 m) Wt 191 lb (86.6kg) SpO2 96% BMI 34.93 kg/m BMI Classification: Obese (BMI 30.0-39.9) Pulse Ox: SpO2 Av % Min: 96 % Max: 98 % Supplemental O2: PHYSICAL EXAM: Physical Exam Vitals reviewed. Constitutional: General: She is not in acute distress. Appearance: Normal appearance. She is not ill-appearing. HENT: Head: Normocephalic and atraumatic. Right Ear: External ear normal. Left Ear: External ear normal. Nose: Nose normal. Mouth/Throat: Mouth: Mucous membranes are moist. Pharynx: Oropharynx is clear. Eyes: General: Right eye: No discharge. Left eye: No discharge. Pupils: Pupils are equal, round, and reactive to light. Cardiovascular: Rate and Rhythm: Normal rate. Pulses: Normal pulses. Pulmonary: Effort: Pulmonary effort is normal. No respiratory distress. Abdominal: General: Bowel sounds are normal. Palpations: Abdomen is soft. Musculoskeletal: General: Tenderness and signs of injury (right knee) present. Normal range of motion. Cervical back: Normal range of motion and neck supple. No rigidity. Skin: General: Skin is warm and dry. Neurological: General: No focal deficit present. Mental Status: She is alert. Psychiatric: Mood and Affect: Mood normal. Behavior: Behavior normal. DATA: CBC: Recent Labs 06/17/24 0240 WBC 7.4 RBC 3.41* HGB 10.7* HCT 32.7* MCV 95.9 RDW 14.1 PLT 190 BMP: Recent Labs 06/17/24 0240 NA 140 K 4.3 CL 109* CO2 23 BUN 30* CREATININE 1.44* GLUCOSE 165* CALCIUM 9.5 ANIONGAP 8 LIVER PROFILE:No results for input(s): AST, ALT, BILITOT, ALKPHOS, PROT in the last 72 hours. No lab exists for component: LABALBU PT/INR: Recent Labs 06/17/24 0240 PROTIME 11.7 INR 1.0 CARDIAC ENZYMES: No results for input(s): TROPONINI in the last 72 hours. Procalcitonin: No results found for: PROCAL Urine Culture: No results found for this or any previous visit. COVID-19 PCR: No results for input(s): COVID19 in the last 72 hours. I reviewed: [x] laboratory results [x] radiographic results At the time of today's encounter. Pt was advised of the results. Data: (CAT3) Discussed with ED provider, Tyler Paulino PA-C, regarding patient's eval & mgmt thus far, and agree with the plan for hospitalization. (LOW: 2x CAT1 or independent historian MOD: 3x CAT1 or 1x CAT3 EXTENSIVE: 3x CAT1 and 1x CAT3) Assessment Discussed management with the ED provider and agree with hospitalization. Acute, acute on chronic, unstable/uncontrolled chronic problems/diagnoses: Periprosthetic distal femur fracture Stable chronic problems affecting care, new non-acute diagnoses: Plan As a result of the above findings & factors, the following mgmt was pursued: Periprosthetic distal femur fracture - fall was clearly mechanical in nature, no presyncopal symptoms - patient is medically optimized for her surgical procedure - ortho following, NPO for surgery - oxy and dilaudid PRN Insulin dependent DM - on a significant regimen of 40 units with breakfast and dinner, and 50 units of long acting insulin at night - will use a high dose NPO correction scale and 25 units long acting SALAS vs CKD - serum cr 1.4 on admit, trend - consider holding lisinopril if confirmed SALAS, will continue for now HTN - continue home meds, lisinopril and metoprolol (will hold lisinopril if serum Cr continues to riseor is found to represent SALAS) - am labs, replace lytes prn - PT/OT/CM/SW - delirium precautions: increase activity - DVT prophylaxis: encourage ambulation Complexity: Acute illness or injury posing a threat to life or body function (HIGH). Risk: Admission to hospital-level care was considered or occurred (HIGH). Advance Directive: No Order Anticipated Discharge - Date - 06/19/24 - Location - Home - Pending the following - surgical intervention Total time spent (which include face to face and non face to face encounters) : 78 minutes. Extended Emergency Contact Information Primary Emergency Contact: Jun Cintron Mobile Relation: Spouse Preferred language: Chinese 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 needed? No Secondary Emergency Contact: Benedict Cintron Mobile Relation: Son Preferred language: Chinese 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 needed? No Christy Snyder DO [facility] Medicine Inpatient Medical Services/[place] [facility] Work Phone: [phone]) 936-739612-12-2024 NoteAttending History and Physical Admit Date: 06/16/2024 PCP: No primary care provider on file. CHIEF COMPLAINT: right leg pain Reason for Admission: Periprosthetic distal femur fracture History Obtained From: patient HISTORY OF PRESENT ILLNESS: Carolyn is a 78 y.o. female with past medical history below who presents with chief complaint listed above. Pt missed a step and fell down the stairs, developed right knee pain immediately. She did also hit her head, CT scans without acute findings and not on blood thinners. Vitals stable in the ED, labs unremarkable except for a mild (presumed SALAS) with 1.4 serum cr. Will admit for further evaluation and management. Past Medical History: No past medical history on file. Past Surgical History: No past surgical history on file. Social History: Social History Socioeconomic History Marital status: Spouse name: Not on file Number of children: Not on file Years of education: Not on file Highest education level: Not on file Occupational History Not on file Tobacco Use Smoking status: Not on file Smokeless tobacco: Not on file Substance and Sexual Activity Alcohol use: Not on file Drug use: Not on file Sexual activity: Not on file Other Topics Concern Not on file Social History Narrative Not on file Social Drivers of Health Financial Resource Strain: Not on file Food Insecurity: No Food Insecurity (03/24/2024) Received from [facility] Hunger Vital Sign Worried About Running Out of Food in the Last Year: Never true Ran Out of Food in the Last Year: Never true Transportation Needs: No Transportation Needs (04/12/2024) Received from [facility] OASIS A1250: Transportation Lack of Transportation (Medical): No Lack of Transportation (Non-Medical): No Patient Unable or Declines to Respond: No Physical Activity: Not on file Stress: Not on file Social Connections: Not on file Intimate Partner Violence: Not At Risk (03/24/2024) Received from [facility] Humiliation, Afraid, Rape, and Kick questionnaire Fear of Current or Ex-Partner: No Emotionally Abused: No Physically Abused: No Sexually Abused: No Housing Stability: Low Risk (03/24/2024) Received from [facility] Housing Stability Vital Sign Unable to Pay for Housing in the Last Year: No Number of Times Moved in the Last Year: 1 Homeless in the Last Year: No Family History: No family history on file. Medications Prior to Admission: No current facility-administered medications on file prior to encounter. Current Outpatient Medications on File Prior to Encounter Medication Sig Dispense Refill insulin regular (NovoLIN R) 100 UNIT/ML pen Inject 40 Units under the skin 2 times daily (with meals). lisinopril 10 MG tablet Take 10 mg by mouth daily. metoprolol succinate XL (Toprol-XL) 25 MG 24 hr tablet Take 25 mg by mouth daily. aspirin (ASPIR) 81 MG EC tablet Take 81 mg by mouth daily. insulin degludec (Tresiba FlexTouch) 200 UNIT/ML injection Inject 55 Units under the skin daily. rosuvastatin (Crestor) 20 MG tablet Take 20 mg by mouth daily. Allergies: Not on File REVIEW OF SYSTEMS: Constitutional: Negative for fever, chills, activity change and unexpected weight change. HEENT: Negative for congestion, postnasal drip and sneezing. Eyes: Negative for itching and visual disturbance. Respiratory: Negative for apnea, cough, choking, chest tightness, shortness of breath, wheezing and stridor. Cardiovascular: Negative for chest pain. Gastrointestinal: Negative for nausea, vomiting, abdominal pain, diarrhea and blood in stool. Genitourinary: Negative for dysuria, frequency and flank pain. Musculoskeletal: Negative for myalgias and joint swelling. Skin: Negative for rash. Neurological: Negative for dizziness, tremors, seizures, syncope, facial asymmetry, speech difficulty, weakness, numbness and headaches. Hematological: Negative for adenopathy. Psychiatric/Behavioral: Negative for suicidal ideas, behavioral problems, self-injury and dysphoric mood. Vitals: BP 130/53 Pulse 65 Temp 37.2 ?C (98.9 ?F) (Oral) Resp 18 Ht 5' 2 (1.575 m) Wt 191 lb (86.6 kg) SpO2 96% BMI 34.93 kg/m? BMI Classification: Obese (BMI 30.0-39.9) Pulse Ox: SpO2 Av % Min: 96 % Max: 98 % Supplemental O2: PHYSICAL EXAM: Physical Exam Vitals reviewed. Constitutional: General: She is not in acute distress. Appearance: Normal appearance. She is not ill-appearing. HENT: Head: Normocephalic and atraumatic. Right Ear: External ear normal. Left Ear: External ear normal. Nose: Nose normal. Mouth/Throat: Mouth: Mucous membranes are moist. Pharynx: Oropharynx is clear. Eyes: General: Right eye: No discharge. Left eye: No discharge. Pupils: Pupils are equal, round, and reactive to light. Cardiovascular: Rate and Rhythm: Normal rate. Pulses: Normal pulses. Pulmonary: Effort: Pulmonary effort is normal. No respiratory d (more content not included)...[facility] History and physical note* Christy Snyder, DO - 06/17/2024 4:30 AM EST Attending History and Physical Admit Date: 06/16/2024 PCP: No primary care provider on file. CHIEF COMPLAINT: right leg pain Reason for Admission: Periprosthetic distal femur fracture History Obtained From: patient HISTORY OF PRESENT ILLNESS: Carolyn is a 78 y.o. female with past medical history below who presents with chief complaint listed above. Pt missed a step and fell down the stairs, developed right knee pain immediately. She did also hit her head, CT scans without acute findings and not on blood thinners. Vitals stable in the ED, labs unremarkable except for a mild (presumed SALAS) with 1.4 serum cr. Will admit for further evaluation and management. Past Medical History: No past medical history on file. Past Surgical History: No past surgical history on file. Social History: Social History Socioeconomic History Marital status: Spouse name: Not on file Number of children: Not on file Years of education: Not on file Highest education level: Not on file Occupational History Not on file Tobacco Use Smoking status: Not on file Smokeless tobacco: Not on file Substance and Sexual Activity Alcohol use: Not on file Drug use: Not on file Sexual activity: Not on file Other Topics Concern Not on file Social History Narrative Not on file Social Drivers of Health Financial Resource Strain: Not on file Food Insecurity: No Food Insecurity (03/24/2024) Received from [facility] Hunger Vital Sign Worried About Running Out of Food in the Last Year: Never true Ran Out of Food in the Last Year: Never true Transportation Needs: No Transportation Needs (04/12/2024) Received from [facility] OASIS A1250: Transportation Lack of Transportation (Medical): No Lack of Transportation (Non-Medical): No Patient Unable or Declines to Respond: No Physical Activity: Not on file Stress: Not on file Social Connections: Not on file Intimate Partner Violence: Not At Risk (03/24/2024) Received from [facility] Humiliation, Afraid, Rape, and Kick questionnaire Fear of Current or Ex-Partner: No Emotionally Abused: No Physically Abused: No Sexually Abused: No Housing Stability: Low Risk (03/24/2024) Received from [facility] Housing Stability Vital Sign Unable to Pay for Housing in the Last Year: No Number of Times Moved in the Last Year: 1 Homeless in the Last Year: No Family History: No family history on file. Medications Prior to Admission: No current facility-administered medications on file prior to encounter. Current Outpatient Medications on File Prior to Encounter Medication Sig Dispense Refill insulin regular (NovoLIN R) 100 UNIT/ML pen Inject 40 Units under the skin 2 times daily (with meals). lisinopril 10 MG tablet Take 10 mg by mouth daily. metoprolol succinate XL (Toprol-XL) 25 MG 24 hr tablet Take 25 mg by mouth daily. aspirin (ASPIR) 81 MG EC tablet Take 81 mg by mouth daily. insulin degludec (Tresiba FlexTouch) 200 UNIT/ML injection Inject 55 Units under the skin daily. rosuvastatin (Crestor) 20 MG tablet Take 20 mg by mouth daily. Allergies: Not on File REVIEW OF SYSTEMS: Constitutional: Negative for fever, chills, activity change and unexpected weight change. HEENT: Negative for congestion, postnasal drip and sneezing. Eyes: Negative for itching and visual disturbance. Respiratory: Negative for apnea, cough, choking, chest tightness, shortness of breath, wheezing andstridor. Cardiovascular: Negative for chest pain. Gastrointestinal: Negative for nausea, vomiting, abdominal pain, diarrhea and blood in stool. Genitourinary: Negative for dysuria, frequency and flank pain. Musculoskeletal: Negative for myalgias and joint swelling. Skin: Negative for rash. Neurological: Negative for dizziness, tremors, seizures, syncope, facial asymmetry, speech difficulty, weakness, numbness and headaches. Hematological: Negative for adenopathy. Psychiatric/Behavioral: Negative for suicidal ideas, behavioral problems, self- injury and dysphoricmood. Vitals: BP 130/53 Pulse 65 Temp 37.2 C (98.9 F) (Oral) Resp 18 Ht 5' 2 (1.575 m) Wt 191 lb (86.6kg) SpO2 96% BMI 34.93 kg/m BMI Classification: Obese (BMI 30.0-39.9) Pulse Ox: SpO2 Av % Min: 96 % Max: 98 % Supplemental O2: PHYSICAL EXAM: Physical Exam Vitals reviewed. Constitutional: General: She is not in acute distress. Appearance: Normal appearance. She is not ill-appearing. HENT: Head: Normocephalic and atraumatic. Right Ear: External ear normal. Left Ear: External ear normal. Nose: Nose normal. Mouth/Throat: Mouth: Mucous membranes are moist. Pharynx: Oropharynx is clear. Eyes: General: Right eye: No discharge. Left eye: No discharge. Pupils: Pupils are equal, round, and reactive to light. Cardiovascular: Rate and Rhythm: Normal rate. Pulses: Normal pulses. Pulmonary: Effort: Pulmonary effort is normal. No respiratory distress. Abdominal: General: Bowel sounds are normal. Palpations: Abdomen is soft. Musculoskeletal: General: Tenderness and signs of injury (right knee) present. Normal range of motion. Cervical back: Normal range of motion and neck supple. No rigidity. Skin: General: Skin is warm and dry. Neurological: General: No focal deficit present. Mental Status: She is alert. Psychiatric: Mood and Affect: Mood normal. Behavior: Behavior normal. DATA: CBC: Recent Labs 06/17/24 024 WBC 7.4 RBC 3.41* HGB 10.7* HCT 32.7* MCV 95.9 RDW 14.1 PLT 190 BMP: Recent Labs 06/17/24 0240 NA 140 K 4.3 CL 109* CO2 23 BUN 30* CREATININE 1.44* GLUCOSE 165* CALCIUM 9.5 ANIONGAP 8 LIVER PROFILE:No results for input(s): AST, ALT, BILITOT, ALKPHOS, PROT in the last 72 hours. No lab exists for component: LABALBU PT/INR: Recent Labs 06/17/24 0240 PROTIME 11.7 INR 1.0 CARDIAC ENZYMES: No results for input(s): TROPONINI in the last 72 hours. Procalcitonin: No results found for: PROCAL Urine Culture: No results found for this or any previous visit. COVID-19 PCR: No results for input(s): COVID19 in the last 72 hours. I reviewed: [x] laboratory results [x] radiographic results At the time of today's encounter. Pt was advised of the results. Data: (CAT3) Discussed with ED provider, Tyler Paulino PA-C, regarding patient's eval & mgmt thus far, and agree with the plan for hospitalization. (LOW: 2x CAT1 or independent historian MOD: 3x CAT1 or 1x CAT3 EXTENSIVE: 3x CAT1 and 1x CAT3) Assessment Discussed management with the ED provider and agree with hospitalization. Acute, acute on chronic, unstable/uncontrolled chronic problems/diagnoses: Periprosthetic distal femur fracture Stable chronic problems affecting care, new non-acute diagnoses: Plan As a result of the above findings & factors, the following mgmt was pursued: Periprosthetic distal femur fracture - fall was clearly mechanical in nature, no presyncopal symptoms - patient is medically optimized for her surgical procedure - ortho following, NPO for surgery - oxy and dilaudid PRN Insulin dependent DM - on a significant regimen of 40 units with breakfast and dinner, and 50 units of long acting insulin at night - will use a high dose NPO correction scale and 25 units long acting SALAS vs CKD - serum cr 1.4 on admit, trend - consider holding lisinopril if confirmed SALAS, will continue for now HTN - continue home meds, lisinopril and metoprolol (will hold lisinopril if serum Cr continues to riseor is found to represent SALAS) - am labs, replace lytes prn - PT/OT/CM/SW - delirium precautions: increase activity - DVT prophylaxis: encourage ambulation Complexity: Acute illness or injury posing a threat to life or body function (HIGH). Risk: Admission to hospital-level care was considered or occurred (HIGH). Advance Directive: No Order Anticipated Discharge - Date - 06/19/24 - Location - Home - Pending the following - surgical intervention Total time spent (which include face to face and non face to face encounters) : 78 minutes. Extended Emergency Contact Information Primary Emergency Contact: Jun Cintron Mobile Relation: Spouse Preferred language: Chinese 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 needed? No Secondary Emergency Contact: Benedict Cintron Mobile Relation: Son Preferred language: Chinese 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 needed? No Christy Snyder DO Division of Hospital Medicine Inpatient Medical Services/[facility] [place] documented in this [facility]12-12-2024 Consult note* Mika Uribe MD - 06/17/2024 1:00 AM EST Images from the original note were not included. Ortho H&P/Consult Patient: Carolyn Cintron Date of : 1945 Acct: [id number] PCP: No primary care provider on file. Date of Admission: 06/16/2024 Date of Service: Pt seen/examined on 06/17/2024 Chief Complaint: Right knee pain History Of Present Illness: This is a 78 y.o. female with right knee pain after a fall from standing today. She states that she was on the steps and fell sideways hitting her head and knee. She denies loss of consciousness. She denies significant pain to any other extremities besides her left foot.She endorses some numbness and tingling in her right foot following the fall. She denies any other numbness or tingling. She did have a right total knee replacement approximately [address] William at [facility]. She denies having any pain in this knee prior to the fall today. Relevant orthopedic surgical history and PMH include bilateral TKA with Dr. William at [facility] approximately 10-20 years ago, 3x spine surgery Lives at: home with and younger son Alcohol/tobacco/illicit drug use: denies Patient ambulation status: ambulates with: cane Antiplatelets/Anticoagulation includes: none Hx from chart and/or Pt. Past Medical History: Past Medical History: Diagnosis Date Asthma Diabetes mellitus (HCC) Disease of thyroid gland 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 Past Surgical History: Past Surgical History: Procedure Laterality Date BACK SURGERY 3 spinal surgeries CARPAL TUNNEL RELEASE Bilateral 1974 CHOLECYSTECTOMY 1985 HYSTERECTOMY 1990 JOINT REPLACEMENT Bilateral 10years ago Home Medications: Prior to Admission medications Not on File Current Hospital Medications: Current Facility-Administered Medications: [Transfer Hold] acetaminophen (Tylenol) tablet 650 mg, 650 mg, Oral, q6h PRN OR [Transfer Hold]acetaminophen (Tylenol) suppository 650 mg, 650 mg, Rectal, q6h PRN, Christy Snyder DO [Transfer Hold] acetaminophen (Tylenol) tablet 1,000 mg, 1,000 mg, Oral, q8h, Christy Snyder DO, 1,000 mg at 06/17/24 0340 [Transfer Hold] aspirin EC tablet 81 mg, 81 mg, Oral, Daily, Christy Snyder DO [Transfer Hold] dextrose 5 % infusion, 100 mL/hr, IntraVENous, PRN, Christy Snyder DO [Transfer Hold] dextrose 50 % solution 12.5 g, 12.5 g, IntraVENous, PRN, Christy Snyder DO [Transfer Hold] glucagon (human recombinant) injection 1 mg, 1 mg, IntraMUSCular, PRN, Christy Snyder DO [Transfer Hold] glucose oral gel 15 g, 15 g, Oral, PRN, Christy Snyder DO [Transfer Hold] insulin glargine (Lantus) injection 25 Units, 25 Units, SubCUTAneous, Nightly, Christy Snyder DO [Transfer Hold] insulin regular (HumuLIN R,NovoLIN R) injection 0-18 Units, 0-18 Units, SubCUTAneous, q6h, Christy Snyder DO [Transfer Hold] lisinopril tablet 10 mg, 10 mg, Oral, Daily, Christy Snyder DO, 10 mg at 06/17/24 0839 [Transfer Hold] metoprolol succinate XL (Toprol-XL) 24 hr tablet 25 mg, 25 mg, Oral, Daily, Christy Retana DO, 25 mg at 06/17/24 0839 [Transfer Hold] naloxone (Narcan) injection 0.4 mg, 0.4 mg, IntraVENous, q5 min PRN, Christy Snyder DO [Transfer Hold] ondansetron ODT (Zofran-ODT) disintegrating tablet 4 mg, 4 mg, Oral, q8h PRN OR[Transfer Hold] ondansetron (Zofran) injection 4 mg, 4 mg, IntraVENous, q6h PRN, Christy Snyder DO [Transfer Hold] oxyCODONE (Roxicodone) immediate release tablet 2.5 mg, 2.5 mg, Oral, q4h PRN OR [Transfer Hold] oxyCODONE (Roxicodone) immediate release tablet 5 mg, 5 mg, Oral, q4h PRN, Christy Retana DO, 5 mg at 06/17/24 0340 [Transfer Hold] polyethylene glycol (PEG) 3350 (Miralax) packet 17 g, 17 g, Oral, Daily PRN, Christy Snyder DO [Transfer Hold] rosuvastatin (Crestor) tablet 20 mg, 20 mg, Oral, Nightly, Christy Snyder DO Allergies: Keflex [cephalexin], Penicillins, and Sulfa antibiotics Social History: Social History Socioeconomic History Marital status: Spouse name: Not on file Number of children: Not on file Years of education: Not on file Highest education level: Not on file Occupational History Not on file Tobacco Use Smoking status: Never Smokeless tobacco: Never Substance and Sexual Activity Alcohol use: Not on file Drug use: Not on file Sexual activity: Not on file Other Topics Concern Not on file Social History Narrative Not on file Social Drivers of Health Financial Resource Strain: Not on file Food Insecurity: No Food Insecurity (06/17/2024) Hunger Vital Sign Worried About Running Out of Food in the Last Year: Never true Ran Out of Food in the Last Year: Never true Transportation Needs: No Transportation Needs (06/17/2024) PRAPARE - Transportation Lack of Transportation (Medical): No Lack of Transportation (Non-Medical): No Physical Activity: Not on file Stress: Not on file Social Connections: Not on file Intimate Partner Violence: Not At Risk (06/17/2024) Humiliation, Afraid, Rape, and Kick questionnaire Fear of Current or Ex-Partner: No Emotionally Abused: No Physically Abused: No Sexually Abused: No Housing Stability: Low Risk (06/17/2024) Housing Stability Vital Sign Unable to Pay for Housing in the Last Year: No Number of Times Moved in the Last Year: 0 Homeless in the Last Year: No Family History: No family history on file. Further Family History is noncontributory to this injury. REVIEW OF SYSTEMS: Review of Systems - General ROS: negative for - chills, fatigue, fever, malaise or night sweats Psychological ROS: negative Ophthalmic ROS: negative ENT ROS: negative for - headaches or sore throat Hematological and Lymphatic ROS: negative for - bleeding problems or blood clots Respiratory ROS: no cough, shortness of breath, or wheezing Cardiovascular ROS: no chest pain or dyspnea on exertion Gastrointestinal ROS: negative Musculoskeletal ROS: See HPI Neurological ROS: negative for - bowel and bladder control changes, gait disturbance or numbness/tingling All other systems reviewed and are negative PHYSICAL EXAM: BP 120/74 Pulse 68 Temp 36.9 C (98.4 F) (Temporal) Resp 19 Ht 1.575 m (5' 2) Wt 86.3 kg (190 lb 3.2 oz) SpO2 96% BMI 34.79 kg/m GENERAL APPEARANCE: Awake and oriented x3. No acute distress, except appropriate to injury. MOOD AND AFFECT: Calm appropriate to situation GAIT AND STATION: Patient is in bed and unable to ambulate secondary to known injury. COORDINATION and BALANCE: Patient is grossly coordinated unable to ambulate secondary to known injury. Right Upper Extremity: -No obvious pain or deformity to inspection with normal joint range of motion, stability, and muscle strength except noted below -No TTP over clavicle, shoulder, humerus, elbow, forearm, wrist, hand, or fingers -TTP: nontender throughout extremity -Radial pulse palpable -SILT in radial/median/ ulnar nerve distributions -Motor + AIN/PIN/ulnar nerve functions -Skin intact except where noted below -Painless pROM at shoulder/elbow/wrist Left Upper Extremity: -No obvious pain or deformity to inspection with normal joint range of motion, stability, and muscle strength except noted below -No TTP over clavicle, shoulder, humerus, elbow, forearm, wrist, hand, or fingers -TTP: nontender throughout extremity -Radial pulse palpable -SILT in radial/median/ ulnar nerve distributions -Motor + AIN/PIN/ulnar nerve functions -Skin intact except where noted below -Painless pROM at shoulder/elbow/wrist Right Lower Extremity: -No obvious pain or deformity to inspection with normal joint range of motion, stability, and muscle strength except noted below -No TTP over pelvis, hip, thigh, tibia, lateral mal, medial mal, calc, midfoot, forefoot -TTP: knee -Pulse: DP Palpable, PT Palpable -Parasthesias in deep peroneal and tibial nerve but sensation intact to light touch -Motor function of quad, tibialis anterior, extensor hallucis longus, and gactrocsoleus complex intact -Skin intact except where noted below -Painless pROM at hip, ankle -Well-healed surgical scar apparent over the right anterior knee. There is a significant joint effusion. Patient unable to range knee secondary to significant pain. Endorses parasthesias in deep peroneal and tibial nerve but sensation intact to light touch. Right lower extremity shortened compared to left extremity. Patient states that her R leg is chronically shorter than the L and this is not anew finding for her. Left Lower Extremity: -No obvious pain or deformity to inspection with normal joint range of motion, stability, and muscle strength except noted below -No TTP over pelvis, hip, thigh, knee, tibia, lateral mal, medial mal, calc, forefoot -TTP: midfoot -Pulse: DP Palpable, PT Palpable -SILT in the superficial peroneal, deep peroneal, tibial, sural, saphenous nerve distributions -Motor function of quad, tibialis anterior, extensor hallucis longus, and gactrocsoleus complex intact -Skin intact except where noted below -Painless pROM at hip/knee/ankle -Negative log roll Well-healed surgical scar over left anterior knee. Ecchymosis present to the left lateral foot. Able to actively range knee, hip, and ankle without significant pain. Labs: CBC: Lab Results Component Value Date WBC 6.8 06/17/2024 RBC 3.31 (L) 06/17/2024 BMP: Lab Results Component Value Date GLUCOSE 154 (H) 06/17/2024 CO2 24 06/17/2024 BUN 29 (H) 06/17/2024 CREATININE 1.52 (H) 06/17/2024 CALCIUM 9.4 06/17/2024 PT/INR: Lab Results Component Value Date INR 1.0 06/17/2024 Type and Screen: Lab Results Component Value Date RH POS 06/17/2024 RH POS 06/17/2024 CRP: No results found for: CRP ESR: No results found for: SEDRATE HgBA1c: No components found for: LABA1C The above labs were reviewed by me. Radiology: The below images were independently reviewed and interpreted with pertinent findings noted below. XR: Right femur: A spiral fx of distal 1/3 femur above a well fixed R total knee arthroplasty Left foot: degenerative changes to the midfoot with no obvious acute fractures. Hallux valgus deformity. CT: R lower extremity: Spiral fracture of distal third femur does not extend into the anterior flange of the total knee arthroplasty. There is significant posterior displacement. No other fractures are appreciated. The femoral and tibial components of the total knee arthroplasty appear well-fixed. C-spine: There is diffuse spondylosis throughout the cervical spine and facet arthropathy at multiple levels. There is reversal of normal cervical lordosis with no evidence of listhesis. Vertebral disc spaces demonstrate decreased height at C4-C5, C5-C6, C6-C7, C7-T1, T1-T2. Vertebral canal and intervertebral foramina appear patent. Facet joints are congruent, with no evidence of dislocation or subluxation. No signs of fracture or traumatic lesions. Radiology reports reviewed. ASSESSMENT: 78 y.o. female with right periprosthetic distal femur fracture PLAN: -wDW Dr. Uribe -Plan for OR for 06/17 for ORIF right femur -NPO -Clearance/optimization pending -Consented -Added -Labs pending -Ice -NWB RLE in KI -Admit to medicine -Pain control and medical management per medicine -Please hold DVT prophylaxis in anticipation of OR -Please comment on clearance in case of OR. 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 Bharat Joe MD Orthopaedic Surgery PGY1 Attestation: The patient was seen, examined and all relevant radiographs were reviewed and independently interpreted which show spiral distal femur fracture as above. I agree with what is documented above with any changes noted. The plan of care was discussed with the evaluating resident. Without treatment this injury poses threat to bodily function both acutely and chronically. Patient will alsorequire IV Dilaudid for pain management. Electronically signed by Mika Uribe M.D. 06/17/2024 at 11:24 AM. [facility] Work Phone: [phone] 125-475212-12-2024 Consult note* Mika Uribe MD - 06/17/2024 1:00 AM EST Images from the original note were not included. Ortho H&P/Consult Patient: Carolyn Cintron Date of : 1945 Acct: [id number] PCP: No primary care provider on file. Date of Admission: 06/16/2024 Date of Service: Pt seen/examined on 06/17/2024 Chief Complaint: Right knee pain History Of Present Illness: This is a 78 y.o. female with right knee pain after a fall from standing today. She states that she was on the steps and fell sideways hitting her head and knee. She denies loss of consciousness. She denies significant pain to any other extremities besides her left foot.She endorses some numbness and tingling in her right foot following the fall. She denies any other numbness or tingling. She did have a right total knee replacement approximately [address] William at [facility]. She denies having any pain in this knee prior to the fall today. Relevant orthopedic surgical history and PMH include bilateral TKA with Dr. William at [facility] approximately 10-20 years ago, 3x spine surgery Lives at: home with and younger son Alcohol/tobacco/illicit drug use: denies Patient ambulation status: ambulates with: cane Antiplatelets/Anticoagulation includes: none Hx from chart and/or Pt. Past Medical History: Past Medical History: Diagnosis Date Asthma Diabetes mellitus (HCC) Disease of thyroid gland 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 Past Surgical History: Past Surgical History: Procedure Laterality Date BACK SURGERY 3 spinal surgeries CARPAL TUNNEL RELEASE Bilateral 1974 CHOLECYSTECTOMY 1984 HYSTERECTOMY 1990 JOINT REPLACEMENT Bilateral 10years ago Home Medications: Prior to Admission medications Not on File Current Hospital Medications: Current Facility-Administered Medications: [Transfer Hold] acetaminophen (Tylenol) tablet 650 mg, 650 mg, Oral, q6h PRN OR [Transfer Hold]acetaminophen (Tylenol) suppository 650 mg, 650 mg, Rectal, q6h PRN, Christy Snyder, [Transfer Hold] acetaminophen (Tylenol) tablet 1,000 mg, 1,000 mg, Oral, q8h, Christy Snyder DO, 1,000 mg at 06/17/24 0340 [Transfer Hold] aspirin EC tablet 81 mg, 81 mg, Oral, Daily, Christy Snyder DO [Transfer Hold] dextrose 5 % infusion, 100 mL/hr, IntraVENous, PRN, Christy Snyder DO [Transfer Hold] dextrose 50 % solution 12.5 g, 12.5 g, IntraVENous, PRN, Christy Snyder DO [Transfer Hold] glucagon (human recombinant) injection 1 mg, 1 mg, IntraMUSCular, PRN, Christy Snyder DO [Transfer Hold] glucose oral gel 15 g, 15 g, Oral, PRN, Christy Snyder DO [Transfer Hold] insulin glargine (Lantus) injection 25 Units, 25 Units, SubCUTAneous, Nightly, Christy Snyder DO [Transfer Hold] insulin regular (HumuLIN R,NovoLIN R) injection 0-18 Units, 0-18 Units, SubCUTAneous, q6h, Christy Snyder DO [Transfer Hold] lisinopril tablet 10 mg, 10 mg, Oral, Daily, Christy Snyder DO, 10 mg at 06/17/24 0839 [Transfer Hold] metoprolol succinate XL (Toprol-XL) 24 hr tablet 25 mg, 25 mg, Oral, Daily, Christy Retana DO, 25 mg at 06/17/24 0839 [Transfer Hold] naloxone (Narcan) injection 0.4 mg, 0.4 mg, IntraVENous, q5 min PRN, Christy Snyder DO [Transfer Hold] ondansetron ODT (Zofran-ODT) disintegrating tablet 4 mg, 4 mg, Oral, q8h PRN OR[Transfer Hold] ondansetron (Zofran) injection 4 mg, 4 mg, IntraVENous, q6h PRN, Christy Snyder DO [Transfer Hold] oxyCODONE (Roxicodone) immediate release tablet 2.5 mg, 2.5 mg, Oral, q4h PRN OR [Transfer Hold] oxyCODONE (Roxicodone) immediate release tablet 5 mg, 5 mg, Oral, q4h PRN, Christy Retana DO, 5 mg at 06/17/24 0340 [Transfer Hold] polyethylene glycol (PEG) 3350 (Miralax) packet 17 g, 17 g, Oral, Daily PRN, Christy Snyder DO [Transfer Hold] rosuvastatin (Crestor) tablet 20 mg, 20 mg, Oral, Nightly, Christy Snyder DO Allergies: Keflex [cephalexin], Penicillins, and Sulfa antibiotics Social History: Social History Socioeconomic History Marital status: Spouse name: Not on file Number of children: Not on file Years of education: Not on file Highest education level: Not on file Occupational History Not on file Tobacco Use Smoking status: Never Smokeless tobacco: Never Substance and Sexual Activity Alcohol use: Not on file Drug use: Not on file Sexual activity: Not on file Other Topics Concern Not on file Social History Narrative Not on file Social Drivers of Health Financial Resource Strain: Not on file Food Insecurity: No Food Insecurity (06/17/2024) Hunger Vital Sign Worried About Running Out of Food in the Last Year: Never true Ran Out of Food in the Last Year: Never true Transportation Needs: No Transportation Needs (06/17/2024) PRAPARE - Transportation Lack of Transportation (Medical): No Lack of Transportation (Non-Medical): No Physical Activity: Not on file Stress: Not on file Social Connections: Not on file Intimate Partner Violence: Not At Risk (06/17/2024) Humiliation, Afraid, Rape, and Kick questionnaire Fear of Current or Ex-Partner: No Emotionally Abused: No Physically Abused: No Sexually Abused: No Housing Stability: Low Risk (06/17/2024) Housing Stability Vital Sign Unable to Pay for Housing in the Last Year: No Number of Times Moved in the Last Year: 0 Homeless in the Last Year: No Family History: No family history on file. Further Family History is noncontributory to this injury. REVIEW OF SYSTEMS: Review of Systems - General ROS: negative for - chills, fatigue, fever, malaise or night sweats Psychological ROS: negative Ophthalmic ROS: negative ENT ROS: negative for - headaches or sore throat Hematological and Lymphatic ROS: negative for - bleeding problems or blood clots Respiratory ROS: no cough, shortness of breath, or wheezing Cardiovascular ROS: no chest pain or dyspnea on exertion Gastrointestinal ROS: negative Musculoskeletal ROS: See HPI Neurological ROS: negative for - bowel and bladder control changes, gait disturbance or numbness/tingling All other systems reviewed and are negative PHYSICAL EXAM: BP 120/74 Pulse 68 Temp 36.9 C (98.4 F) (Temporal) Resp 19 Ht 1.575 m (5' 2) Wt 86.3 kg (190 lb 3.2 oz) SpO2 96% BMI 34.79 kg/m GENERAL APPEARANCE: Awake and oriented x3. No acute distress, except appropriate to injury. MOOD AND AFFECT: Calm appropriate to situation GAIT AND STATION: Patient is in bed and unable to ambulate secondary to known injury. COORDINATION and BALANCE: Patient is grossly coordinated unable to ambulate secondary to known injury. Right Upper Extremity: -No obvious pain or deformity to inspection with normal joint range of motion, stability, and muscle strength except noted below -No TTP over clavicle, shoulder, humerus, elbow, forearm, wrist, hand, or fingers -TTP: nontender throughout extremity -Radial pulse palpable -SILT in radial/median/ ulnar nerve distributions -Motor + AIN/PIN/ulnar nerve functions -Skin intact except where noted below -Painless pROM at shoulder/elbow/wrist Left Upper Extremity: -No obvious pain or deformity to inspection with normal joint range of motion, stability, and muscle strength except noted below -No TTP over clavicle, shoulder, humerus, elbow, forearm, wrist, hand, or fingers -TTP: nontender throughout extremity -Radial pulse palpable -SILT in radial/median/ ulnar nerve distributions -Motor + AIN/PIN/ulnar nerve functions -Skin intact except where noted below -Painless pROM at shoulder/elbow/wrist Right Lower Extremity: -No obvious pain or deformity to inspection with normal joint range of motion, stability, and muscle strength except noted below -No TTP over pelvis, hip, thigh, tibia, lateral mal, medial mal, calc, midfoot, forefoot -TTP: knee -Pulse: DP Palpable, PT Palpable -Parasthesias in deep peroneal and tibial nerve but sensation intact to light touch -Motor function of quad, tibialis anterior, extensor hallucis longus, and gactrocsoleus complex intact -Skin intact except where noted below -Painless pROM at hip, ankle -Well-healed surgical scar apparent over the right anterior knee. There is a significant joint effusion. Patient unable to range knee secondary to significant pain. Endorses parasthesias in deep peroneal and tibial nerve but sensation intact to light touch. Right lower extremity shortened compared to left extremity. Patient states that her R leg is chronically shorter than the L and this is not anew finding for her. Left Lower Extremity: -No obvious pain or deformity to inspection with normal joint range of motion, stability, and muscle strength except noted below -No TTP over pelvis, hip, thigh, knee, tibia, lateral mal, medial mal, calc, forefoot -TTP: midfoot -Pulse: DP Palpable, PT Palpable -SILT in the superficial peroneal, deep peroneal, tibial, sural, saphenous nerve distributions -Motor function of quad, tibialis anterior, extensor hallucis longus, and gactrocsoleus complex intact -Skin intact except where noted below -Painless pROM at hip/knee/ankle -Negative log roll Well-healed surgical scar over left anterior knee. Ecchymosis present to the left lateral foot. Able to actively range knee, hip, and ankle without significant pain. Labs: CBC: Lab Results Component Value Date WBC 6.8 06/17/2024 RBC 3.31 (L) 06/17/2024 BMP: Lab Results Component Value Date GLUCOSE 154 (H) 06/17/2024 CO2 24 06/17/2024 BUN 29 (H) 06/17/2024 CREATININE 1.52 (H) 06/17/2024 CALCIUM 9.4 06/17/2024 PT/INR: Lab Results Component Value Date INR 1.0 06/17/2024 Type and Screen: Lab Results Component Value Date RH POS 06/17/2024 RH POS 06/17/2024 CRP: No results found for: CRP ESR: No results found for: SEDRATE HgBA1c: No components found for: LABA1C The above labs were reviewed by me. Radiology: The below images were independently reviewed and interpreted with pertinent findings noted below. XR: Right femur: A spiral fx of distal 1/3 femur above a well fixed R total knee arthroplasty Left foot: degenerative changes to the midfoot with no obvious acute fractures. Hallux valgus deformity. CT: R lower extremity: Spiral fracture of distal third femur does not extend into the anterior flange of the total knee arthroplasty. There is significant posterior displacement. No other fractures are appreciated. The femoral and tibial components of the total knee arthroplasty appear well-fixed. C-spine: There is diffuse spondylosis throughout the cervical spine and facet arthropathy at multiple levels. There is reversal of normal cervical lordosis with no evidence of listhesis. Vertebral disc spaces demonstrate decreased height at C4-C5, C5-C6, C6-C7, C7-T1, T1-T2. Vertebral canal and intervertebral foramina appear patent. Facet joints are congruent, with no evidence of dislocation or subluxation. No signs of fracture or traumatic lesions. Radiology reports reviewed. ASSESSMENT: 78 y.o. female with right periprosthetic distal femur fracture PLAN: -wDW Dr. Uribe -Plan for OR for 06/17 for ORIF right femur -NPO -Clearance/optimization pending -Consented -Added -Labs pending -Ice -NWB RLE in KI -Admit to medicine -Pain control and medical management per medicine -Please hold DVT prophylaxis in anticipation of OR -Please comment on clearance in case of OR. 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 Bharat Joe MD Orthopaedic Surgery PGY1 Attestation: The patient was seen, examined and all relevant radiographs were reviewed and independently interpreted which show spiral distal femur fracture as above. I agree with what is documented above with any changes noted. The plan of care was discussed with the evaluating resident. Without treatment this injury poses threat to bodily function both acutely and chronically. Patient will alsorequire IV Dilaudid for pain management. Electronically signed by Mika Uribe M.D. 06/17/2024 at 11:24 AM. documented in this [facility]12-11-2024 Emergency department Note* Tyler Paulino PA-C - 06/16/2024 11:08 PM EST Emergency Department Encounter [facility] EMERGENCY DEPT Patient: Carolyn Cintron : 1945 Date of Evaluation: 06/16/2024 ED [place]ANNE Provider: Tyler Paulino PA-C EDcare was supervised by Dr. Noriega who independently examined and evaluated the patient. Pleasesee their attestation note for further details. Chief Complaint Chief Complaint Patient presents with Fall Patient presents to ed via ems for fall at home. Patient transfer from [facility] for right femur fracture. Patient fell down 3 steps. Patient states she did hit her head, denies LOC, denies blood thinner use. Patient A&OX4. Patient was given 1mg dilaudid prior to transport from [place]. Patient c/o right leg pain and left foot pain. [place] I was wearing a N95, Surgical mask for the entirety of this encounter. Carolyn Cintron is a 78 y.o. female who presents to the emergency department for evaluation of a periprosthetic right distal femur fracture that was diagnosed at [facility]. She reports that she was walking on the stairs today, her legs gave out, fell down 3 steps, hit her head but did not lose consciousness, on aspirin however, no head or neck pain per patient. Sustained right lower leg/knee pain, diagnosed with a periprosthetic right distal femur fracture. Transferred here for orthopedic consultation. Had a right knee replacement done [address] William. Limitations to history: None Outside historians: None Past History No past medical history on file. No past surgical history on file. Social History Socioeconomic History Marital status: Social Drivers of Health Food Insecurity: No Food Insecurity (03/24/2024) Received from [facility] Hunger Vital Sign Worried About Running Out of Food in the Last Year: Never true Ran Out of Food in the Last Year: Never true Transportation Needs: No Transportation Needs (04/12/2024) Received from [facility] OASIS A1250: Transportation Lack of Transportation (Medical): No Lack of Transportation (Non-Medical): No Patient Unable or Declines to Respond: No Intimate Partner Violence: Not At Risk (03/24/2024) Received from [facility] Humiliation, Afraid, Rape, and Kick questionnaire Fear of Current or Ex-Partner: No Emotionally Abused: No Physically Abused: No Sexually Abused: No Housing Stability: Low Risk (03/24/2024) Received from [facility] Housing Stability Vital Sign Unable to Pay for Housing in the Last Year: No Number of Times Moved in the Last Year: 1 Homeless in the Last Year: No Medications/Allergies Previous Medications No medications on file Not on File Physical Exam BP 116/63 Pulse 63 Temp 37.2 C (98.9 F) (Oral) Resp 18 Ht 1.575 m (5' 2) Wt 86.6 kg (191lb) SpO2 97% BMI 34.93 kg/m Physical Exam GENERAL APPEARANCE: Awake and alert. Cooperative. HEENT: Normocephalic. Atraumatic. No trismus. NECK: Supple. Trachea midline. CARDIO: Normal rate and rhythm. Radial pulses symmetrical and palpable LUNGS: Respirations unlabored. CTAB. ABDOMEN: Soft. Non-distended. Non-tender throughout. MUSCULOSKELETAL: Right lower extremity placed in a Velcro knee immobilizer. Normal sensation and pulses to the lower extremities. SKIN: Warm and dry. NEUROLOGICAL: No gross facial drooping. No obvious neurologic deficits. Moves all 4 extremities spontaneously. SCREENINGS D Labs: Results for orders placed or performed during the hospital encounter of 06/16/24 ECG 12 lead Collection Time: 06/17/24 1:55 AM Result Value Ref Range Heart Rate 66 bpm QRSD Interval 104 ms QT Interval 430 ms QTC Interval 452 ms P Adger 0 degrees QRS Adger 72 degrees T Wave Adger 62 degrees IA Interval 0 ms Radiographs: XR foot 3+ views left Final Result No acute osseous abnormality of the left foot. Report Dictated on Electronically Signed By: Wisam Lo DR Electronically Signed Date/Time: 06/17/2024 2:34 AM EST XR chest 1 view Final Result No acute consolidative process. Report Dictated on Electronically Signed By: Wisam Lo DR Electronically Signed Date/Time: 06/17/2024 2:[address] lower extremity right wo IV contrast Final Result Displaced fracture of the distal right femoral diaphysis. Report Dictated on Electronically Signed By: Wisam Lo DR Electronically Signed Date/Time: 06/17/2024 12:[address] head wo IV contrast Final Result COMBINED IMPRESSION: 1. No acute intracranial hemorrhage or territorial infarct. 2. No acute osseous injury of the cervical spine. Reversal of normal cervical lordosis with mild multilevel degenerative changes. Report Dictated on Electronically Signed By: Wisam Lo DR Electronically Signed Date/Time: 06/17/2024 1:[address] cervical spine wo IV contrast Final Result COMBINED IMPRESSION: 1. No acute intracranial hemorrhage or territorial infarct. 2. No acute osseous injury of the cervical spine. Reversal of normal cervical lordosis with mild multilevel degenerative changes. Report Dictated on Electronically Signed By: Wisam oL DR Electronically Signed Date/Time: 06/17/2024 1:02 AM EST XR femur right 2+ views Final Result Displaced and angulated fracture of the distal right femoral diaphysis. Report Dictated on Electronically Signed By: Wisam Lo DR Electronically Signed Date/Time: 06/17/2024 12:27 AM EST : EKG: All EKG's areinterpreted by the Emergency Department Physician in the absence of a foreign food cook specialty. see their note for interpretation of EKG. EMERGENCY DEPARTMENT COURSE and DIFFERENTIAL DIAGNOSIS/MDM: External Records Review: . Social Determinants of Health: . Carolyn Cintron is a 78 y.o. female who presented to the emergency department for evaluation of right leg pain, went to [facility], diagnosed with a periprosthetic right distal femur fracture. Alsohit her head during the fall but did not lose consciousness, on aspirin however. Sent here for orthopedic evaluation. Cannot see imaging so x-rays as well as CT of the right lower extremity were obtained. Patient given Dilaudid and Zofran for symptoms. CT head and cervical spine were obtained and unremarkable. Orthopedics evaluated the patient, please see their note. Patient will be admitted medically, will go to the operating room tomorrow. From the [place] CT Head Injury/Trauma Rule: Major Criteria: GCS < 15 at 2 hours post-injury Suspected open or depressed skull fracture Any sign of basilar skull fracture? (Hemotympanum, Racoon Eyes, Chance s Sign, CSF jackie-/rhinorrhea) >= 2 episodes of vomiting Age >= 65 Minor Criteria: Retrograde Amnesia to the Event >= 30 minutes Dangerous Mechanism? (Pedestrian struck by motor vehicle, Occupant ejected from motor vehicle, orFall from > 3 feet or > 5 stairs. Given present of above criteria, Carolyn Cintron does require CT Head. Final Diagnosis: 1. Closed fracture of distal end of right femur, unspecified fracture morphology, initial encounter([facility]) Medications HYDROmorphone (Dilaudid) injection 0.5 mg (0.5 mg IntraVENous Given 06/16/24 2344) ondansetron (Zofran) injection 4 mg (4 mg IntraVENous Given 06/17/24 0024) CRITICAL CARE TIME CONSULTS: None PROCEDURES: Unless otherwise noted below, none Procedures DISPOSITION/PLAN Admit 06/17/2024 01:49:54 AM PATIENT REFERRED TO: No follow-up provider specified. DISCHARGE MEDICATIONS: New Prescriptions No medications on file @[facility]([id number]:LAST:1)@ (Please note: Portions of this note were completed with a voice recognition program. Efforts were made to edit the dictations but occasionally words and phrases are mis-transcribed.) Form [id number].[id number] Tyler Paulino PA-C Acute Care [facility] Tyler Paulino PA-C 06/17/24 0248 Cosigned by Ashly Noriega MD at 06/17/2024 4:15 AM EST * Ashly Noriega MD - 06/16/2024 11:08 PM EST Emergency Department Encounter [facility] EMERGENCY DEPT Patient: Carolyn Cintron : 1945 Date of Evaluation: 06/16/2024 ED Supervising Physician: Ashly Noriega MD I personally evaluated Carolyn Cintron and made/approved the management plan and take responsibility for the patient management. This will serve as my Supervisory note and shared attestation. I did perform a substantive portion of the visit including all aspects of the Medical Decision Making. I wore appropriate PPE for the entirety of this encounter. In brief, Carolyn Cintron is a 78 y.o. that presents to the emergency department after a fall. Patient had a mechanical fall at home where she fell down 3 steps. She did hit her head no loss of consciousness and is on aspirin. She went to an outside hospital where she was diagnosed with a periprosthetic right distal femur fracture. Placed in a knee immobilizer and came here for orthopedic surgery evaluation. Focused exam: Well-appearing female in no acute distress. Vital signs reviewed and unremarkable. It is normocephalic and atraumatic. No midline C-spine tenderness. No increased work of breathing. Lungs are to auscultation bilaterally. Right lower extremity is in a knee immobilizer. 2+ DP pulses bilaterally. Brief ED course/MDM: 70-year-old female presenting after mechanical fall from outside hospital. Sheis afebrile hemodynamically stable. Found to have a distal femur fracture that is periprosthetic onthe right lower extremity. She did state that she hit her head and is on aspirin so we got a CT scan of her head and C- spine with these are unremarkable. Orthopedics came to evaluate the patient and got a CT image of her right lower extremity. Plan willbe for them to take her to the OR tomorrow. Patient medically admitted for further care. Admitted in stable condition. Diagnostics interpreted by me: I personally discussed the patient's management with other clinicians: All diagnostic, treatment, and disposition decisions were made by myself in conjunction with the [facility]. For all further details of the patient's emergency department visit, please see their documentation. (Comment: Please note this report has been produced using speech recognition software and may contain errors related to that system including errors in grammar, punctuation, and spelling, as well as words and phrases that may be inappropriate. If there are any questions or concerns please feel freeto contact the dictating provider for clarification.) Ashly Noriega MD [employer] Ashly Noriega MD 06/17/24 0315 documented in this [facility]12-11-2024 Physician Emergency department Note* Tyler Paulino PA-C - 06/16/2024 11:08 PM EST Emergency Department Encounter [facility] EMERGENCY DEPT Patient: Carolyn Cintron : 1945 Date of Evaluation: 06/16/2024 ED [facility] Provider: Tyler Paulino PA-C EDcare was supervised by Dr. Noriega who independently examined and evaluated the patient. Pleasesee their attestation note for further details. Chief Complaint Chief Complaint Patient presents with Fall Patient presents to ed via ems for fall at home. Patient transfer from [facility] for right femur fracture. Patient fell down 3 steps. Patient states she did hit her head, denies LOC, denies blood thinner use. Patient A&OX4. Patient was given 1mg dilaudid prior to transport from [place]. Patient c/o right leg pain and left foot pain. [place] I was wearing a N95, Surgical mask for the entirety of this encounter. Carolyn Cintron is a 78 y.o. female who presents to the emergency department for evaluation of a periprosthetic right distal femur fracture that was diagnosed at [facility]. She reports that she was walking on the stairs today, her legs gave out, fell down 3 steps, hit her head but did not lose consciousness, on aspirin however, no head or neck pain per patient. Sustained right lower leg/knee pain, diagnosed with a periprosthetic right distal femur fracture. Transferred here for orthopedic consultation. Had a right knee replacement done [address] William. Limitations to history: None Outside historians: None Past History No past medical history on file. No past surgical history on file. Social History Socioeconomic History Marital status: Social Drivers of Health Food Insecurity: No Food Insecurity (03/24/2024) Received from [facility] Hunger Vital Sign Worried About Running Out of Food in the Last Year: Never true Ran Out of Food in the Last Year: Never true Transportation Needs: No Transportation Needs (04/12/2024) Received from [facility] OASIS A1250: Transportation Lack of Transportation (Medical): No Lack of Transportation (Non-Medical): No Patient Unable or Declines to Respond: No Intimate Partner Violence: Not At Risk (03/24/2024) Received from [facility] Humiliation, Afraid, Rape, and Kick questionnaire Fear of Current or Ex-Partner: No Emotionally Abused: No Physically Abused: No Sexually Abused: No Housing Stability: Low Risk (03/24/2024) Received from [facility] Housing Stability Vital Sign Unable to Pay for Housing in the Last Year: No Number of Times Moved in the Last Year: 1 Homeless in the Last Year: No Medications/Allergies Previous Medications No medications on file Not on File Physical Exam BP 116/63 Pulse 63 Temp 37.2 C (98.9 F) (Oral) Resp 18 Ht 1.575 m (5' 2) Wt 86.6 kg (191lb) SpO2 97% BMI 34.93 kg/m Physical Exam GENERAL APPEARANCE: Awake and alert. Cooperative. HEENT: Normocephalic. Atraumatic. No trismus. NECK: Supple. Trachea midline. CARDIO: Normal rate and rhythm. Radial pulses symmetrical and palpable LUNGS: Respirations unlabored. CTAB. ABDOMEN: Soft. Non-distended. Non-tender throughout. MUSCULOSKELETAL: Right lower extremity placed in a Velcro knee immobilizer. Normal sensation and pulses to the lower extremities. SKIN: Warm and dry. NEUROLOGICAL: No gross facial drooping. No obvious neurologic deficits. Moves all 4 extremities spontaneously. SCREENINGS D Labs: Results for orders placed or performed during the hospital encounter of 06/16/24 ECG 12 lead Collection Time: 06/17/24 1:55 AM Result Value Ref Range Heart Rate 66 bpm QRSD Interval 104 ms QT Interval 430 ms QTC Interval 452 ms P Adger 0 degrees QRS Adger 72 degrees T Wave Adger 62 degrees IA Interval 0 ms Radiographs: XR foot 3+ views left Final Result No acute osseous abnormality of the left foot. Report Dictated on Electronically Signed By: Wisam Lo DR Electronically Signed Date/Time: 06/17/2024 2:34 AM EST XR chest 1 view Final Result No acute consolidative process. Report Dictated on Electronically Signed By: Wisam Lo DR Electronically Signed Date/Time: 06/17/2024 2:[address] lower extremity right wo IV contrast Final Result Displaced fracture of the distal right femoral diaphysis. Report Dictated on Electronically Signed By: Wisam Lo DR Electronically Signed Date/Time: 06/17/2024 12:[address] head wo IV contrast Final Result COMBINED IMPRESSION: 1. No acute intracranial hemorrhage or territorial infarct. 2. No acute osseous injury of the cervical spine. Reversal of normal cervical lordosis with mild multilevel degenerative changes. Report Dictated on Electronically Signed By: Wisam Lo DR Electronically Signed Date/Time: 06/17/2024 1:[address] cervical spine wo IV contrast Final Result COMBINED IMPRESSION: 1. No acute intracranial hemorrhage or territorial infarct. 2. No acute osseous injury of the cervical spine. Reversal of normal cervical lordosis with mild multilevel degenerative changes. Report Dictated on Electronically Signed By: Wisam Lo DR Electronically Signed Date/Time: 06/17/2024 1:02 AM EST XR femur right 2+ views Final Result Displaced and angulated fracture of the distal right femoral diaphysis. Report Dictated on Electronically Signed By: Wisam Lo DR Electronically Signed Date/Time: 06/17/2024 12:27 AM EST : EKG: All EKG's areinterpreted by the Emergency Department Physician in the absence of a foreign food cook specialty. see their note for interpretation of EKG. EMERGENCY DEPARTMENT COURSE and DIFFERENTIAL DIAGNOSIS/MDM: External Records Review: . Social Determinants of Health: . Carolyn Cintron is a 78 y.o. female who presented to the emergency department for evaluation of right leg pain, went to [facility], diagnosed with a periprosthetic right distal femur fracture. Alsohit her head during the fall but did not lose consciousness, on aspirin however. Sent here for orthopedic evaluation. Cannot see imaging so x-rays as well as CT of the right lower extremity were obtained. Patient given Dilaudid and Zofran for symptoms. CT head and cervical spine were obtained and unremarkable. Orthopedics evaluated the patient, please see their note. Patient will be admitted medically, will go to the operating room tomorrow. From the [place] CT Head Injury/Trauma Rule: Major Criteria: GCS < 15 at 2 hours post-injury Suspected open or depressed skull fracture Any sign of basilar skull fracture? (Hemotympanum, Racoon Eyes, Chance s Sign, CSF jackie-/rhinorrhea) >= 2 episodes of vomiting Age >= 65 Minor Criteria: Retrograde Amnesia to the Event >= 30 minutes Dangerous Mechanism? (Pedestrian struck by motor vehicle, Occupant ejected from motor vehicle, orFall from > 3 feet or > 5 stairs. Given present of above criteria, Carolyn Cintron does require CT Head. Final Diagnosis: 1. Closed fracture of distal end of right femur, unspecified fracture morphology, initial encounter([facility]) Medications HYDROmorphone (Dilaudid) injection 0.5 mg (0.5 mg IntraVENous Given 06/16/24 2344) ondansetron (Zofran) injection 4 mg (4 mg IntraVENous Given 06/17/24 0024) CRITICAL CARE TIME CONSULTS: None PROCEDURES: Unless otherwise noted below, none Procedures DISPOSITION/PLAN Admit 06/17/2024 01:49:54 AM PATIENT REFERRED TO: No follow-up provider specified. DISCHARGE MEDICATIONS: New Prescriptions No medications on file @[facility]([id number]:LAST:1)@ (Please note: Portions of this note were completed with a voice recognition program. Efforts were made to edit the dictations but occasionally words and phrases are mis-transcribed.) Form [id number] Tyler Paulino PA-C [employer] Tyler Paulino PA-C 06/17/24 0248 Cosigned by Ashly Noriega MD at 06/17/2024 4:15 AM EST [id number] Emergency [facility] Note* Ashly Noriega MD - 06/16/2024 11:08 PM EST Emergency Department Encounter [facility] EMERGENCY DEPT Patient: Carolyn Cintron : 1945 Date of Evaluation: 06/16/2024 ED Supervising Physician: Ashly Noriega MD I personally evaluated Carolyn Cintron and made/approved the management plan and take responsibility for the patient management. This will serve as my Supervisory note and shared attestation. I did perform a substantive portion of the visit including all aspects of the Medical Decision Making. I wore appropriate PPE for the entirety of this encounter. In brief, Carolyn Cintron is a 78 y.o. that presents to the emergency department after a fall. Patient had a mechanical fall at home where she fell down 3 steps. She did hit her head no loss of consciousness and is on aspirin. She went to an outside hospital where she was diagnosed with a periprosthetic right distal femur fracture. Placed in a knee immobilizer and came here for orthopedic surgery evaluation. Focused exam: Well-appearing female in no acute distress. Vital signs reviewed and unremarkable. It is normocephalic and atraumatic. No midline C-spine tenderness. No increased work of breathing. Lungs are to auscultation bilaterally. Right lower extremity is in a knee immobilizer. 2+ DP pulses bilaterally. Brief ED course/MDM: 70-year-old female presenting after mechanical fall from outside hospital. Sheis afebrile hemodynamically stable. Found to have a distal femur fracture that is periprosthetic onthe right lower extremity. She did state that she hit her head and is on aspirin so we got a CT scan of her head and C- spine with these are unremarkable. Orthopedics came to evaluate the patient and got a CT image of her right lower extremity. Plan willbe for them to take her to the OR tomorrow. Patient medically admitted for further care. Admitted in stable condition. Diagnostics interpreted by me: I personally discussed the patient's management with other clinicians: All diagnostic, treatment, and disposition decisions were made by myself in conjunction with the [facility]. For all further details of the patient's emergency department visit, please see their documentation. (Comment: Please note this report has been produced using speech recognition software and may contain errors related to that system including errors in grammar, punctuation, and spelling, as well as words and phrases that may be inappropriate. If there are any questions or concerns please feel freeto contact the dictating provider for clarification.) Ashly Noriega MD [employer] Ashly Noriega MD 06/17/24314 [employer] Phone: 1(785) 156-706512-03-2024 NoteOPG [address] ([address]) [facility] [address] [facility] [id number] Carolyn Cintron is a 78 y.o. female being seen today, 06/08/24, Chief Complaint Patient presents with Left Arm - Follow-up, Fracture [chief complaint] status post fracture left proximal humerus HPI Dictation: Seen routine follow-up she is finished physical therapy she has mild restriction abduction forward flexion but functional range with minimal pain x-rays show a healed fracture [hpi] Physical Exam Dictation: [PE] exam as noted Assessment and Plan Dictation: [AP] plan to start meloxicam she has other complaints of neck and lower back pain will see her back in 2 weeks if not improved I have reviewed all relevant histories, medications, allergies, and problem list items with Carolyn Cintron during this visit. Review of Systems Constitutional: Negative for chills and fever. HENT: Negative for congestion. Respiratory: Negative for shortness of breath. Cardiovascular: Negative for chest pain. Gastrointestinal: Negative for diarrhea, nausea and vomiting. Neurological: Negative for headaches. Psychiatric/Behavioral: Negative for behavioral problems. There were no vitals taken for this visit. Imaging: No results found. 1. Humeral head fracture, right, closed, initial encounter Return in about 2 weeks (around 06/22/2024), or if symptoms worsen or fail to improve. Jacquie Fields MD AUTHENTICATED BY JACQUIE FIELDS, ON 06/08/2024 13:08:[address] [place], [place] 1905312-03-2024 History of Present illness Narrative* Jacquie Fields MD - 06/08/2024 1:08 PM EST [facility] [address] ([address]) [facility] [address] [facility] [id number] Carolyn Cintron is a 78 y.o. female being seen today, 06/08/24, Chief Complaint Patient presents with Left Arm - Follow-up, Fracture [chief complaint] status post fracture left proximal humerus HPI Dictation: Seen routine follow-up she is finished physical therapy she has mild restriction abduction forward flexion but functional range with minimal pain x-rays show a healed fracture [hpi] Physical Exam Dictation: [PE] exam as noted Assessment and Plan Dictation: [AP] plan to start meloxicam she has other complaints of neck and lower back pain will see her backin 2 weeks if not improved I have reviewed all relevant histories, medications, allergies, and problem list items with Carolyn Holguin during this visit. Review of Systems Constitutional: Negative for chills and fever. HENT: Negative for congestion. Respiratory: Negative for shortness of breath. Cardiovascular: Negative for chest pain. Gastrointestinal: Negative for diarrhea, nausea and vomiting. Neurological: Negative for headaches. Psychiatric/Behavioral: Negative for behavioral problems. There were no vitals taken for this visit. Imaging: No results found. 1. Humeral head fracture, right, closed, initial encounter Return in about 2 weeks (around 06/22/2024), or if symptoms worsen or fail to improve. Jacquie Fields MD documented in this [id number] History of Present illness Narrative* Anne Kaminski CMA - 06/08/2024 9:58 AM EST NA documented in this [id number] NoteGeneral Cardiology Returning Patient Clinic Visit [facility] 05/19/2024 Dayana Moreau, [employer] [address] [facility], 3rd Floor Medical Office [facility] [phone] [facility], physician's office 05/19/2024 Patient: Carolyn Cintron Date of : 1945 (78 y.o.) Referring Provider: No ref. provider found PCP: Ramón Coulter MD Chief Complaint: Follow-up (Overdue/ Dr. Saunders - no complaints ) Date of Service: 05/19/2024 Assessment and Plan: 1. Atypical chest pain, recently noted sharp pains over the last few months, can occur at rest or with activities, resolve on their own, EKG today with no acute ST changes of ischemia, does not appear to be ACS 2. Nonobstructive CAD on cardiac cath in 2008 with medical therapy, stress test March 2021 with no ischemia, continue aspirin, statin, beta-kenny 3. 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, blood pressure well-controlled in office today, low-sodium diet encouraged, continue Toprol, lisinopril 4. Hyperlipidemia, continue Crestor 5. Palpitations, intermittent, denies dizziness or syncope, declines youth nutritional monitor, continue beta-kenny 6. Diabetes managed per PCP, recent hemoglobin A1c 6.9 Plan -Add Imdur 30 mg -Changed to Toprol XL 25 mg daily, continue lisinopril, monitor BP at home, notify office if develops hypotension, low-sodium diet encouraged -If continues to have recurrent chest pain may need to consider further ischemic evaluation, patient encouraged to call if she continues to have symptoms after initiation of Imdur -Update lipid panel It has been a pleasure caring for this patient. Please don't hesitate to reach out to my office directly with any questions or concerns. Follow-up: Return in about 1 year (around 05/19/2025) for Dr. Kiser . Dayaan Moreau, [facility] P:[phone] F:[phone] History of Present Illness: Carolyn Cintron is a 78 y.o. woman with a past medical history of hypertension, hyperlipidemia, diabetes, nonobstructive CAD. Previous patient of Dr. Saunders here for routine follow-up. She reports recently she has noted intermittent little sharp pains in chest at rest, they last about five minutes and have been occurring over the last few months. She reports they can occur at rest or with activity but she notices it more with rest. She reports intermittent heart racing, denies dizziness or syncope. She reports recent fall where she was helping her brother lift a treadmill into his vehicle and slipped and kind of fell over landing in a poison kavin patch. Patient denies any relationship with eating to her chest pain. Patient counseled on potential causes of chest pain including GI, versus musculoskeletal versus anxiety. Recommend trial of Imdur and monitor for symptom improvement, recommend to monitor BP at home. Patient is concern for hypotension, will change Toprol to 25 mg daily could consider youth nutritional monitor with intermittent heart palpitations but patient currently declines. All questions and concerns addressed. Previous cardiac testing, recent cardiology notes, PCP notes, and labs reviewed. Objective Review of Systems: All systems were reviewed and noted to be negative unless otherwise stated in HPI. Past Medical History: Diagnosis Date Asthma Diabetes mellitus (HCC) Gout High cholesterol 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 Hypothyroid Shigella dysentery Skin cancer Past Surgical History: Procedure Laterality Date CARPAL TUNNEL RELEASE Bilateral CHOLECYSTECTOMY 1993 COLONOSCOPY 1998 LAMINECTOMY DISC LUMBAR SINGLE LEVEL 10/15/2011 SKIN CANCER EXCISION 03/08/2021 left shoulder/Right cheek GABO/BSO 1979 TOTAL KNEE ARTHROPLASTY Bilateral UMBILICAL HERNIA REPAIR Family History Problem Relation Age of Onset Diabetes Mother Heart disease Mother Colon cancer Father Diabetes Sister Heart disease Sister Diabetes Brother Diabetes Son Diabetes Brother Heart disease Brother Diabetes Sister Heart disease Sister Diabetes Sister Social History Tobacco Use Smoking Status Never Passive exposure: Never Smokeless Tobacco Never Allergies: Atorvastatin, Exenatide, Keflex [cephalexin], Lovastatin, and Sulfa (sulfonamide antibiotics) All of the above information has been reviewed at today's visit and modified if necessary. Home Medications: Current Outpatient Medications: allopurinoL (ZYLOPRIM) 300 MG tablet, Take 1 (one) tablet (300 mg total) by mouth daily ., Disp: , Rfl: aspirin 81 MG EC tablet, Take 1 (one) tablet (81 mg total) by mouth daily ., Disp: 90 tablet, Rfl: 1 blood sugar diagnostic (glucose blood) strips, Use to test 6 times per day. DG code E11.65. Use what coordinates with pt meter. ., Disp: 20 (more content not included)...[facility] [id number] History of Present illness Narrative* Dayana Moreau CNP - 05/19/2024 12:43 PM EST General Cardiology Returning Patient Clinic Visit [facility] 05/19/2024 Dayana Moreau CNP [address] 3rd Floor [place] [address] [facility], physician's office 05/19/2024 Patient: Carolyn Cintron Date of : 1945 (78 y.o.) Referring Provider: No ref. provider found PCP: Ramón Coulter MD Chief Complaint: Follow-up (Overdue/ Dr. Saunders - no complaints ) Date of Service: 05/19/2024 Assessment and Plan: 1. Atypical chest pain, recently noted sharp pains over the last few months, can occur at rest or with activities, resolve on their own, EKG today with no acute ST changes of ischemia, does not appear to be ACS 2. Nonobstructive CAD on cardiac cath in 2008 with medical therapy, stress test March 2021 withno ischemia, continue aspirin, statin, beta-kenny 3. 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, blood pressure well-controlled in office today, low-sodium diet encouraged, continue Toprol, lisinopril 4. Hyperlipidemia, continue Crestor 5. Palpitations, intermittent, denies dizziness or syncope, declines youth nutritional monitor, continue beta-kenny 6. Diabetes managed per PCP, recent hemoglobin A1c 6.9 Plan -Add Imdur 30 mg -Changed to Toprol XL 25 mg daily, continue lisinopril, monitor BP at home, notify office if develops hypotension, low-sodium diet encouraged -If continues to have recurrent chest pain may need to consider further ischemic evaluation, patient encouraged to call if she continues to have symptoms after initiation of Imdur -Update lipid panel It has been a pleasure caring for this patient. Please don't hesitate to reach out to my office directly with any questions or concerns. Follow-up: Return in about 1 year (around 05/19/2025) for Dr. Kiser . Dayana Moreau CNP [facility] P:[phone] F:[phone] History of Present Illness: Carolyn Cintron is a 78 y.o. woman with a past medical history of hypertension, hyperlipidemia, diabetes, nonobstructive CAD. Previous patient of Dr. Saunders here for routine follow-up. She reports recently she has noted intermittent little sharp pains in chest at rest, they last about five minutes and have been occurring over the last few months. She reports they can occur at rest or with activity butshe notices it more with rest. She reports intermittent heart racing, denies dizziness or syncope. She reports recent fall where she was helping her brother lift a treadmill into his vehicle and slipped and kind of fell over landing in a poison kavin patch. Patient denies any relationship with eatingto her chest pain. Patient counseled on potential causes of chest pain including GI, versus musculoskeletal versus anxiety. Recommend trial of Imdur and monitor for symptom improvement, recommend to monitor BP at home. Patient is concern for hypotension, will change Toprol to 25 mg daily could consider youth nutritional monitor with intermittent heart palpitations but patient currently declines. All questions and concerns addressed. Previous cardiac testing, recent cardiology notes, PCP notes, and labs reviewed. Objective Review of Systems: All systems were reviewed and noted to be negative unless otherwise stated in HPI. Past Medical History: Diagnosis Date Asthma Diabetes mellitus (HCC) Gout High cholesterol 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 Hypothyroid Shigella dysentery Skin cancer Past Surgical History: Procedure Laterality Date CARPAL TUNNEL RELEASE Bilateral CHOLECYSTECTOMY 1993 COLONOSCOPY 1998 LAMINECTOMY DISC LUMBAR SINGLE LEVEL 10/15/2011 SKIN CANCER EXCISION 03/08/2021 left shoulder/Right cheek GABO/BSO 1979 TOTAL KNEE ARTHROPLASTY Bilateral UMBILICAL HERNIA REPAIR Family History Problem Relation Age of Onset Diabetes Mother Heart disease Mother Colon cancer Father Diabetes Sister Heart disease Sister Diabetes Brother Diabetes Son Diabetes Brother Heart disease Brother Diabetes Sister Heart disease Sister Diabetes Sister Social History Tobacco Use Smoking Status Never Passive exposure: Never Smokeless Tobacco Never Allergies: Atorvastatin, Exenatide, Keflex [cephalexin], Lovastatin, and Sulfa (sulfonamide antibiotics) All of the above information has been reviewed at today's visit and modified if necessary. Home Medications: Current Outpatient Medications: allopurinoL (ZYLOPRIM) 300 MG tablet, Take 1 (one) tablet (300 mg total) by mouth daily ., Disp: , Rfl: aspirin 81 MG EC tablet, Take 1 (one) tablet (81 mg total) by mouth daily ., Disp: 90 tablet, Rfl: 1 blood sugar diagnostic (glucose blood) strips, Use to test 6 times per day. DG code E11.65. Use what coordinates with pt meter. ., Disp: 200 each, Rfl: 11 cholecalciferol, vitamin D3, 25 mcg (1,000 unit) capsule, Take 1 (one) capsule (1,000 Units total) by mouth 2 (two) times a day ., Disp: , Rfl: cyanocobalamin (B-12) 1000 MCG tablet, Take 1 (one) tablet (1,000 mcg total) by mouth daily ., Disp: , Rfl: fenofibrate micronized (LOFIBRA) 134 MG capsule, TAKE 1 CAPSULE BY MOUTH DAILY. TAKE WITH FOOD., Disp: 90 capsule, Rfl: 1 fluticasone (FLONASE) 50 mcg/actuation nasal spray, Instill 1 (one) spray into each nostril daily ., Disp: , Rfl: furosemide (LASIX) 20 MG tablet, Take 1 (one) tablet (20 mg total) by mouth every other day ., Disp: 45 tablet, Rfl: 1 insulin degludec (Tresiba FlexTouch U-200) 200 unit/mL (3 mL) InPn, Inject 55 (fifty five) Units under the skin daily ., Disp: , Rfl: Klor-Con M20 20 mEq tablet, Take 1 (one) tablet (20 mEq total) by mouth every other day ., Disp: 45tablet, Rfl: 1 levothyroxine (SYNTHROID, LEVOTHROID) 112 MCG tablet, Take 1 (one) tablet (112 mcg total) by mouth once daily ., Disp: , Rfl: loratadine (Claritin Liqui-Gel) 10 mg cap, Take 1 (one) capsule (10 mg total) by mouth daily ., Disp: , Rfl: montelukast (SINGULAIR) 10 mg tablet, Take 1 (one) tablet (10 mg total) by mouth daily ., Disp: , Rfl: NovoLIN N NPH U-100 Insulin 100 unit/mL injection, Use as directed twice daily, approx 85 units daily (Needs Reli-on brand) ., Disp: 30 mL, Rfl: 12 NovoLIN R Regular U-100 Insuln 100 unit/mL injection, USE DIRECTED THREE TIMES DAILY INJECTING UP TO 80 UNITS PER DAY ., Disp: 30 mL, Rfl: 6 OMEGA-3 FATTY ACIDS-FISH OIL ORAL, Take 1 g by mouth 2 (two) times a day ., Disp: , Rfl: pantoprazole (PROTONIX) 40 MG tablet, Take 1 (one) tablet (40 mg total) by mouth daily ., Disp: , Rfl: rosuvastatin (CRESTOR) 20 MG tablet, Take 1 (one) tablet (20 mg total) by mouth daily ., Disp: 90 tablet, Rfl: 1 therapeutic multivitamin (THERAGRAN) tablet, Take 1 (one) tablet by mouth daily ., Disp: , Rfl: traZODone (DESYREL) 50 MG tablet, Take by mouth nightly as needed for sleep., Disp: , Rfl: blood sugar diagnostic (ONETOUCH ULTRA BLUE TEST STRIP) strips, One touch ultra blue strips - use to check BG 6x a day.DX code E11.65 ., Disp: 200 each, Rfl: 11 blood sugar diagnostic (OneTouch Verio test strips) strips, USe to check BG 4x daily, DX code E11.65 insulin used ., Disp: 150 each, Rfl: 11 blood sugar diagnostic (ONETOUCH VERIO) strips, Use as directed 6 times/day One Touch Verio strips ., Disp: 200 each, Rfl: 11 isosorbide mononitrate (IMDUR) 30 MG 24 hr tablet, Take 1 (one) tablet (30 mg total) by mouth daily., Disp: 30 tablet, Rfl: 11 lisinopriL (PRINIVIL,ZESTRIL) 10 MG tablet, Take 1 (one) tablet (10 mg total) by mouth daily ., Disp: 90 tablet, Rfl: 3 metoprolol succinate (Toprol XL) 25 MG 24 hr tablet, Take 1 (one) tablet (25 mg total) by mouth daily ., Disp: 30 tablet, Rfl: 11 Physical Exam: BP 107/65 (BP Location: Left arm, Patient Position: Sitting, BP Cuff Size: X- large Adult) Pulse 62 Ht 5' 3 Wt 87.1 kg (192 lb) SpO2 95% BMI 34.01 kg/m Constitutional: Alert, no acute distress Eyes: Conjunctivae are normal, no discharge noted Respiratory: Lungs clear to auscultation bilaterally Cardiovascular: Controlled rate and regular rhythm, no murmurs appreciated on today's exam, normal S1 and S2, no rubs or gallops Musculoskeletal: Moves all extremities. No cyanosis. No peripheral Edema Abdomen: Soft, bowel sounds positive Neurological: Alert and oriented x 3 Skin: Skin is warm and dry Psychiatric: Normal mood and affect, appropriate conversation Cardiovascular Studies: EKG today normal sinus rhythm with first-degree AV block, PVCs MCT April 2022 CRISPIN REPORT: 04/11/2022 TO 04/22/2022 INDICARTIONS: SYNCOPE Baseline recording is normal sinus rhythm. Average heart rate is 68 bpm. Heart rate ranges from 45 bpm at 4:03 AM to 106 bpm. Occasional PACs and atrial couplets are recorded. PVCs and sinus arrhythmia also recorded. There is no atrial fibrillation. There are no significant pauses. There were no patient events. NM myocardial perfusion single stress test March 2021 Summary 1. Normal exercise stress SPECT myocardial perfusion imaging study. 2. Normal electrocardiographic stress test. Adequate workload achieved. Normal hemodynamic response to exercise. No chest discomfort. No arrhythmias with exercise. No evidence of ischemia by EKG criteria. 3. Average exercise tolerance for age. 4. There is a brief run of SVT with no associated symptoms noted. 5. Intermediate risk (-11 < Garcia score < 5). 6. Overall left ventricular systolic function was normal without regional wall motion abnormalities. Gated SPECT imaging reveals normal myocardial wall thickening. Post stress left ventricular ejection fraction is normal, 80 %. Left ventricular cavity size is normal. 7. The stress nuclear myocardial perfusion imaging was normal. No resting imaging was performed. 8. SPECT images demonstrate homogeneous tracer distribution throughout the myocardium. Echo June 2020 Summary 1. Left ventricular systolic function is normal with an ejection fraction by Biplane Method of Discs of 69 %. 2. The left ventricular diastolic function is normal for age. 3. No significant valvular heart disease is identified. Labs: Lab Results Component Value Date GLUCOSE 212 (H) 03/25/2024 CALCIUM 9.3 03/25/2024 NA 140 03/25/2024 K 4.5 03/25/2024 CL 104 03/25/2024 BUN 27 (H) 03/25/2024 CREATININE 1.22 (H) 03/25/2024 Lab Results Component Value Date ALT 33 02/26/2023 AST 32 02/26/2023 ALKPHOS 31 (L) 02/26/2023 BILITOT 0.3 02/26/2023 Lab Results Component Value Date WBC 6.67 03/25/2024 HGB 10.1 (L) 03/25/2024 HCT 31.3 (L) 03/25/2024 MCV 100.6 (H) 03/25/2024 EXTMCV 98.9 03/29/2020 PLT 182 03/25/2024 RBC 3.11 (L) 03/25/2024 Lab Results Component Value Date CHOL 160 02/26/2023 LDLCALC 02/26/2023 Comment: Calculated LDL invalid, triglycerides >400 mg/dl LDLDIRECT 49 02/26/2023 TRIG 802 (H) 02/26/2023 HDL 21 (L) 02/26/2023 Lab Results Component Value Date HGBA1C 6.9 (H) 03/25/2024 Lab Results Component Value Date ALT 33 02/26/2023 AST 32 02/26/2023 ALKPHOS 31 (L) 02/26/2023 BILITOT 0.3 02/26/2023 The ASCVD Risk score (Augusta DK, et al., 2019) failed to calculate for the following reasons: The valid total cholesterol range is 130 to 320 mg/dL Please excuse any typographical errors as dictation software was used documented in this [id number] NoteOPG [address] (11) [facility] [address] [facility] [address] Carolyn Cintron is a 78 y.o. female being seen today, 05/10/24, Chief Complaint Patient presents with Right Arm - Follow-up Post hosp rt humerus 1 mo fu [chief complaint] status post proximal humeral fracture HPI Dictation: Tiffanie seen in follow-up she is proximally 6 weeks post injury she still having pain as expected x-rays show good position of the fracture with evidence of callus [hpi] Physical Exam Dictation: [PE] still restricted range of motion actively and passively Assessment and Plan Dictation: [AP] continue PT return in 4 to 6 weeks for final follow-up x-ray I have reviewed all relevant histories, medications, allergies, and problem list items with Carolyn Bedolla Honey during this visit. Review of Systems Constitutional: Negative for chills and fever. HENT: Negative for congestion. Respiratory: Negative for shortness of breath. Cardiovascular: Negative for chest pain. Gastrointestinal: Negative for diarrhea, nausea and vomiting. Neurological: Negative for headaches. Psychiatric/Behavioral: Negative for behavioral problems. Ht 5' 3 BMI 34.72 kg/m Imaging: No results found. 1. Humeral head fracture, right, closed, initial encounter Return in about 4 weeks (around 06/07/2024). Jacquie Fields MD AUTHENTICATED BY JACQUIE FIELDS, ON 05/10/2024 11:07:[address] [place], [place] [id number] History of Present illness Narrative* Jacquie Fields MD - 05/10/2024 11:07 AM EST OPG [address] (11) [facility] [address] [facility] [phone] Carolyn Cintron is a 78 y.o. female being seen today, 05/10/24, Chief Complaint Patient presents with Right Arm - Follow-up Post hosp rt humerus 1 mo fu [chief complaint] status post proximal humeral fracture HPI Dictation: Salaiz seen in follow-up she is proximally 6 weeks post injury she still having painas expected x-rays show good position of the fracture with evidence of callus [hpi] Physical Exam Dictation: [PE] still restricted range of motion actively and passively Assessment and Plan Dictation: [AP] continue PT return in 4 to 6 weeks for final follow-up x-ray I have reviewed all relevant histories, medications, allergies, and problem list items with Carolyn Holguin during this visit. Review of Systems Constitutional: Negative for chills and fever. HENT: Negative for congestion. Respiratory: Negative for shortness of breath. Cardiovascular: Negative for chest pain. Gastrointestinal: Negative for diarrhea, nausea and vomiting. Neurological: Negative for headaches. Psychiatric/Behavioral: Negative for behavioral problems. Ht 5' 3 BMI 34.72 kg/m Imaging: No results found. 1. Humeral head fracture, right, closed, initial encounter Return in about 4 weeks (around 06/07/2024). Jacquie Fields MD documented in this [id number] NoteOPG [address] (11) [facility] [address] [facility] [id number] Carolyn Cintron is a 78 y.o. female being seen today, 04/06/24, Chief Complaint Patient presents with Right Shoulder - Follow-up Post hosp fu [chief complaint] right shoulder pain HPI Dictation: Tiffanie approximately 2 weeks status post proximal humeral head neck fracture with x-rays showing mild displaced [hpi] Physical Exam Dictation: [PE] soft tissue swelling pain is Assessment and Plan Dictation: [AP] continue sling another week then begin physical therapy return in 4 weeks I have reviewed all relevant histories, medications, allergies, and problem list items with Carolyn Cintron during this visit. Review of Systems Constitutional: Negative for chills and fever. HENT: Negative for congestion. Respiratory: Negative for shortness of breath. Cardiovascular: Negative for chest pain. Gastrointestinal: Negative for diarrhea, nausea and vomiting. Neurological: Negative for headaches. Psychiatric/Behavioral: Negative for behavioral problems. Ht 5' 3 BMI 34.72 kg/m Imaging: No results found. 1. Humeral head fracture, right, closed, initial encounter Return in about 4 weeks (around 05/04/2024). Jacquie Fields MD AUTHENTICATED BY JACQUIE FIELDS, ON 04/06/2024 10:58:30[facility] [id number] History of Present illness Narrative* Genesis Stiles RN - 03/26/2024 11:28 AM EDT oYanna at Dr. Fields's office (Orthopedic surgeon) called and states Dr. Fields will follow/sign for [facility] orders for the PT/OT for this patient. * Victorina Stauffer RN - 03/26/2024 10:55 AM EDT Attempted to call Ryan Gomez MD's office, per recording office closed. Called patient andspoke with her, she states she is now a patient of Ramón Coulter MD. Attempted to call Ramón Coulter MD's office ([phone]) regarding willingness to manage Home Health Orders. Left detailed voicemail with intake dept phone number. * Gm Howell RN - 03/26/2024 9:24 AM EDT Patient discharged 03/25/24. Managing physician still needs confirmed for HH services. Called patients PCP Ryan Gomez MD's office, phone message stating provider office closed. Called Jacquie Fields MD's office left VM on nurse line left VM with [facility] intake call back #. Accepted for services? If so, where? YES/PENDING (if [facility], include region) Yes [facility] Accepted [facility] Referrals sent to (names of agencies) [facility] [place] If OPAT, TF, TPN: (document pharmacy name, referral pending or accepted, script sent?) N/a [facility] created for the following services: [or waiting for ____ (i.e wound care)] [facility] placed 03/25/24 PT/OT Demographics -( Where patient will be staying on discharge ) [address] [place] [address] [address] [facility] [id number] What is the primary number to reach you? Jun Cintron (Spouse) Following physician will be (list first name/last name) Left VM for office 03/26/24 Do you have a caregiver and/or teachable caregiver (list relationship, name & phone #)? Pt's son as TCG if needed Are there any special precautions or safety concerns (isolation precautions, etc)? N/a Has the patient been added to capacity board/tracking sheet? ([facility] only) N/A no restrictions in service area therapy services Estimated Discharge Date (FELIPE): 03/25/24 documented in this [id number] NoteOrthopedic progress note Chief complaint right shoulder pain Is noted lady was trying to place a treadmill in the back of her car and she lost her footing fell rolling down an embankment with x-rays showing a mildly displaced impacted humeral head neck fracture imaging also showed age-indeterminate superior plate fracture T1 which does not correlate clinically Past surgical history positive carpal tunnel release cholecystectomy colonoscopy laminectomy total abdominal hysterectomy total knee replacement umbilical hernia repair Past medical history positive for asthma diabetes gout hypertension hypothyroidism skin cancer Multiple drug allergies reviewed Plan sling immobilization can be discharged anytime from my standpoint office follow-up 10 to 14 days post injury AUTHENTICATED BY JACQUIE FIELDS, ON 03/25/2024 09:45:41[facility] 03-24-2024 [facility] & [facility] SURGICAL HISTORY & PHYSICAL/CONSULTATION NOTE Trauma: Admitted with these risk variables:Acute Kidney Injury. Please see assessment and plan for further details. INJURIES: Right humeral head/neck fracture Age-indeterminate superior endplate T1 compression fracture ASSESSMENT & PLAN/ACTIVE MEDICAL PROBLEMS: Right humeral head/neck fracture Consult Ortho, discussed with Dr. Fields, likely NOM Sling, pain control, therapies Check vitamin D level T1 compression fracture Age-indeterminate, nontender on exam If the patient develops pain, consider neurosurgery consult Pain control, therapies Acute kidney injury Creatinine 1.53, baseline 1.2-1.4 Gentle IV fluids AM labs Diabetes Resume home meds once verified Mechanical fall Denies head trauma, denies LOC CT head and neck without acute traumatic injuries. Denies midline cervical spine pain to palpation No AC/AP medications Chest x-ray, pelvis x-ray for sake of completeness UA/culture Therapies INCIDENTAL FINDINGS: N/A. CHIEF COMPLAINT: Right arm pain Notification Time: 1919 Arrival at Bedside: 1939 HISTORY OF PRESENT ILLNESS / INJURY (HPI): Carolyn is a 78-year-old female with a past medical history significant for diabetes mellitus, hypertension, hypothyroidism, gout, and asthma who presented to [facility] with a chief complaint of right arm pain after a fall. The patient states that she was helping put a treadmill into the back of a car when she lost her footing and rolled down an embankment. She denies hitting her head or any loss of consciousness. She is not on any anticoagulation. Imaging revealed a right humeral head/neck fracture. She received 3 doses of IV narcotics in the emergency room with little relief. She will be admitted under the trauma service for observation and pain control as well as orthopedic consultation. PAST MEDICAL HISTORY (PMH): Past Medical History: Diagnosis Date Asthma Diabetes mellitus (HCC) Gout High cholesterol 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 Hypothyroid Shigella dysentery Skin cancer Past Surgical History: Procedure Laterality Date CARPAL TUNNEL RELEASE Bilateral CHOLECYSTECTOMY 1993 COLONOSCOPY 1998 LAMINECTOMY DISC LUMBAR SINGLE LEVEL 10/15/2011 SKIN CANCER EXCISION 03/08/2021 left shoulder/Right cheek GABO/BSO 1979 TOTAL KNEE ARTHROPLASTY Bilateral UMBILICAL HERNIA REPAIR Social History Tobacco Use Smoking status: Never Passive exposure: Never Smokeless tobacco: Never Vaping Use Vaping status: Never Used Substance Use Topics Alcohol use: No Drug use: No Family History Problem Relation Age of Onset Diabetes Mother Heart disease Mother Colon cancer Father Diabetes Sister Heart disease Sister Diabetes Brother Diabetes Son Diabetes Brother Heart disease Brother Diabetes Sister Heart disease Sister Diabetes Sister MEDICATIONS: No current facility-administered medications on file prior to encounter. Current Outpatient Medications on File Prior to Encounter Medication Sig Dispense Refill aspirin 81 MG EC tablet Take 1 (one) tablet (81 mg total) by mouth daily . 90 tablet 1 blood sugar diagnostic (glucose blood) strips Use to test 6 times per day. DG code E11.65. Use what coordinates with pt meter. . 200 each 11 blood sugar diagnostic (ONETOUCH ULTRA BLUE TEST STRIP) strips One touch ultra blue strips - use to check BG 6x a day.DX code E11.65 . 200 each 11 blood sugar diagnostic (OneTouch Verio test strips) strips USe to check BG 4x daily, DX code E11.65 insulin used . 150 each 11 blood sugar diagnostic (ONETOUCH VERIO) strips Use as directed 6 times/day One Touch Verio strips . 200 each 11 cholecalciferol, vitamin D3, 25 mcg (1,000 unit) capsule Take 1 (one) capsule (1,000 Units total) by mouth 2 (two) times a day . cyanocobalamin (B-12) 1000 MCG tablet Take 1 (one) tablet (1,000 mcg total) by mouth daily . dicyclomine (BENTYL) 20 mg tablet Take 1 (one) tablet (20 mg total) by mouth 4 (four) times a day as needed (Abd pain) . 20 tablet 0 fenofibrate micronized (LOFIBRA) 134 MG capsule TAKE 1 CAPSULE BY MOUTH DAILY. TAKE WITH FOOD. 90 capsule 1 fluticasone (FLONASE) 50 mcg/actuation nasal spray Instill 1 (one) spray into each nostril daily . furosemide (LASIX) 20 MG tablet Take 1 (one) tablet (20 mg total) by mouth every other day . 45 tablet 1 insulin degludec (Tresiba FlexTouch U-200) 200 unit/mL (3 mL) InPn Inject under the skin . Klor-Con M20 20 mEq tablet Take 1 (one) tablet (20 mEq total) by mouth every other day . 45 tablet 1 levothyroxine (SYNTHROID, LEVOTHROID) 112 MCG tablet Take 1 (one) tablet (112 mcg total) by mouth once daily . lisinopriL (PRINIVIL,ZESTRIL) 10 MG tablet Take 1 (one) tablet (10 mg total) by mouth daily . 90 tablet 3 loratadine (Claritin Liqui-Gel) (more content not included)...[facility] 12-25-2023 Instructions* Patient Instructions* Carmen Llanes II, OD - 12/25/2023 11:00 AM EDT Assessment and Plan E11.9 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 (HCC) (primary encounter diagnosis) Comment: Examination shows no ocular diabetic complications today. Discussed need for optimal diabetes control to minimize chance of ocular complications. Advise patient to immediately report worsening in status or additional symptoms. Continue yearly dilated eye examinations. H10.13 Allergic conjunctivitis, bilateral Comment: Ocular allergies noted both eyes. Recommend use of OTC Pataday 0.2% 1 drop both eyes once daily as needed for relief of symptoms. Advise patient to immediately report worsening in status or additional symptoms. H04.123 Dry eye syndrome of both eyes Comment: Recommend use of Systane Complete 1 gt OU up to qid as needed for relief of symptoms. H53.002 Amblyopia of left eye Comment: Longstanding and stable. Z96.1 Pseudophakia of both eyes Comment: Well positioned clear PC Intraocular lenses H52.221 Regular astigmatism of right eye Comment: Stable glasses power. I have confirmed and edited as necessary the relevant HPI, ophthalmic history, ROS, and the neuro exam findings as obtained by others. I have seen and examined Carolyn Cintron. I have discussed the case and the management of this patient's care with the Resident/Fellow, if applicable. I also have reviewed and agree with the assessment and plan as stated above and agree withall of its relevant components. documented in [facility] NoteHNO ID: [id number] Author: CARMEN LLANES II, OD Service: ? Author Type: PRESSURIZATION MECHANIC Type: Progress Notes Filed: 12/25/2023 11:01 Note Text: Assessment and Plan E11.9 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 (HCC) (primary encounter diagnosis) Comment: Examination shows no ocular diabetic complications today. Discussed need for optimal diabetes control to minimize chance of ocular complications. Advise patient to immediately report worsening in status or additional symptoms. Continue yearly dilated eye examinations. H10.13 Allergic conjunctivitis, bilateral Comment: Ocular allergies noted both eyes. Recommend use of OTC Pataday 0.2% 1 drop both eyes once daily as needed for relief of symptoms. Advise patient to immediately report worsening in status or additional symptoms. H04.123 Dry eye syndrome of both eyes Comment: Recommend use of Systane Complete 1 gt OU up to qid as needed for relief of symptoms. H53.002 Amblyopia of left eye Comment: Longstanding and stable. Z96.1 Pseudophakia of both eyes Comment: Well positioned clear PC Intraocular lenses H52.221 Regular astigmatism of right eye Comment: Stable glasses power. I have confirmed and edited as necessary the relevant HPI, ophthalmic history, ROS, and the neuro exam findings as obtained by others. I have seen and examined Carolyn Koko Cintron. I have discussed the case and the management of this patient's care with the Resident/Fellow, if applicable. I also have reviewed and agree with the assessment and plan as stated above and agree with all of its relevant components.[facility]06-[facility] History of Present illness Narrative* Carmen Llanes II, OD - 12/25/2023 10:57 AM EDT Assessment and Plan E11.9 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 (HCC) (primary encounter diagnosis) Comment: Examination shows no ocular diabetic complications today. Discussed need for optimal diabetes control to minimize chance of ocular complications. Advise patient to immediately report worsening in status or additional symptoms. Continue yearly dilated eye examinations. H10.13 Allergic conjunctivitis, bilateral Comment: Ocular allergies noted both eyes. Recommend use of OTC Pataday 0.2% 1 drop both eyes once daily as needed for relief of symptoms. Advise patient to immediately report worsening in status or additional symptoms. H04.123 Dry eye syndrome of both eyes Comment: Recommend use of Systane Complete 1 gt OU up to qid as needed for relief of symptoms. H53.002 Amblyopia of left eye Comment: Longstanding and stable. Z96.1 Pseudophakia of both eyes Comment: Well positioned clear PC Intraocular lenses H52.221 Regular astigmatism of right eye Comment: Stable glasses power. I have confirmed and edited as necessary the relevant HPI, ophthalmic history, ROS, and the neuro exam findings as obtained by others. I have seen and examined Carolyn Cintron. I have discussed the case and the management of this patient's care with the Resident/Fellow, if applicable. I also have reviewed and agree with the assessment and plan as stated above and agree withall of its relevant components. documented in this encounterMet[facility] Telephone encounter Note * Telephone Encounter - Sen Dunham MA - 05/20/2023 8:36 AM EST Patient was recently seen in the office by 03/14/23. Refill appropriate [id number] Miscellaneous Notes* Telephone Encounter - Roly, DebbieADRIEN sprague - 05/20/2023 8:36 AM EST Patient was recently seen in the office by 03/14/23. 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 Morning to lid margins and bedtime in eyes. Recheck as needed. Instruct patient to immediately report any change in condition outside of expected and discussed symptoms. I have confirmed and edited as necessary the relevant ophthalmic history, ROS, and the neuro exam findings as obtained by others. I have seen and examined Carolyn Cintron. I have discussed the case and the management of this patient's care with the Resident/Fellow, if applicable. I also have reviewed and agree with the assessment and plan as stated above and agree withall of its relevant components. Carmen lLanes II, OD documented in this encounterMet[facility]23 NoteHNO ID: [id number] Author: Carmen Llanes II, OD Service: ? 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 Morning to lid margins and bedtime in eyes. Recheck as needed. Instruct patient to immediately report any change in condition outside of expected and discussed symptoms. I have confirmed and edited as necessary the relevant ophthalmic history, ROS, and the neuro exam findings as obtained by others. I have seen and examined Carolyn Cintron. I have discussed the case and the management of this patient's care with the Resident/Fellow, if applicable. I also have reviewed and agree with the assessment and plan as stated above and agree with all of its relevant components. 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 Morning to lid margins and bedtime in eyes. Recheck as needed. Instruct patient to immediately report any change in condition outside of expected and discussed symptoms. I have confirmed and edited as necessary the relevant ophthalmic history, ROS, and the neuro exam findings as obtained by others. I have seen and examined Carolyn Cintron. I have discussed the case and the management of this patient's care with the Resident/Fellow, if applicable. I also have reviewed and agree with the assessment and plan as stated above and agree withall of its relevant components. Carmen Llanes II, OD documented in this encounterMet[facility]09-[facility] History of Present illness Narrative* Gonzalez Saunders MD - 03/14/2023 11:47 AM EDT CARDIOLOGY PROGRESS NOTE [facility] [address] ([address]) [facility] [address] [facility] [id number] Physicians: Ryan Gomez MD (Family); No ref. provider found (Referring) Subjective: Carolyn Cintron is a 77 y.o. female seen in the office today for No chief complaint on file. . HPI: Patient presents in cardiovascular follow-up. 77-year-old white female with hypertension, hyperlipidemia, and type 2 diabetes mellitus. Left heart catheterization in 2008 demonstrated moderate disease in the right coronary artery and posterior circulation although physiologic interrogation did not demonstrate physiologic significance to angiographic disease identified. Myocardial perfusion study March 2021 was normal without evidence forprovokable ischemia. 2D echocardiogram 2019 demonstrated preserved LV systolic function with an estimated LV ejection fraction of 69%. Patient had no hemodynamic significant valvular heart disease. Extended ambulatory monitoring April 2022 demonstrated sinus rhythm with occasional PACs and PVCs. No atrial fibrillation or significant pauses. In the office patient offers no complaints. She describes herself as reasonably active. She cares for her chronically ill . She is not describing shortness of breath or chest discomfort with activities of daily living. She performs pearl stringer, grocery shopping, and limited outdoor yardwork. She tells me I do everything including paying the bills. She notices at times exertional fatigue. No congestive manifestations. No syncope. Patient has been compliant with her medical regiment. Assessment/plan: Patient appears to be reasonably well compensated at the present time from a cardiovascular viewpoint and I have made no change in her current medical regiment. Chronic disease management and risk factor modification were reviewed. Assessment & Plan: No problem-specific Assessment & Plan notes found for this encounter. EKG Interpretation: sinus bradycardia, first degree AVB, low voltage Follow Up Ordered: No follow-ups on file. Patient's Medications New Prescriptions No medications on file Previous Medications ASPIRIN 81 MG EC TABLET Take 1 (one) tablet (81 mg total) by mouth daily . BLOOD SUGAR DIAGNOSTIC (GLUCOSE BLOOD) STRIPS Use to test 6 times per day. DG code E11.65. Use whatApartamaordinates with pt meter. . BLOOD SUGAR DIAGNOSTIC (ONETOUCH ULTRA BLUE TEST STRIP) STRIPS One touch ultra blue strips - use tocheck BG 6x a day.DX code E11.65 . BLOOD SUGAR DIAGNOSTIC (ONETOUCH VERIO TEST STRIPS) STRIPS USe to check BG 4x daily, DX code E11.65insulin used . BLOOD SUGAR DIAGNOSTIC (ONETOUCH VERIO) STRIPS Use as directed 6 times/day One Touch Verio strips . CHOLECALCIFEROL, VITAMIN D3, 25 MCG (1,000 UNIT) CAPSULE Take 1 (one) capsule (1,000 Units total) by mouth 2 (two) times a day . CYANOCOBALAMIN (B-12) 1000 MCG TABLET Take 1 (one) tablet (1,000 mcg total) by mouth daily . FENOFIBRATE MICRONIZED (LOFIBRA) 134 MG CAPSULE TAKE 1 CAPSULE BY MOUTH DAILY. TAKE WITH FOOD. FLUTICASONE (FLONASE) 50 MCG/ACTUATION NASAL SPRAY Instill 1 (one) spray into each nostril daily . FUROSEMIDE (LASIX) 20 MG TABLET Take 1 (one) tablet (20 mg total) by mouth every other day . INSULIN DEGLUDEC (TRESIBA FLEXTOUCH U-200) 200 UNIT/ML (3 ML) INPN Inject under the skin . KLOR-CON M20 20 MEQ TABLET Take 1 (one) tablet (20 mEq total) by mouth every other day . LEVOTHYROXINE (SYNTHROID, LEVOTHROID) 112 MCG TABLET Take 1 (one) tablet (112 mcg total) by mouth once daily . LISINOPRIL (PRINIVIL,ZESTRIL) 10 MG TABLET Take 1 (one) tablet (10 mg total) by mouth daily . LORATADINE (CLARITIN LIQUI-GEL) 10 MG CAP Take by mouth daily . MAGNESIUM OXIDE ORAL Take 800 mg by mouth every other day . METOPROLOL TARTRATE (LOPRESSOR) 50 MG TABLET Take 0.5 (one-half) tablet (25 mg total) by mouth 2 (two) times a day . MONTELUKAST (SINGULAIR) 10 MG TABLET Take 1 (one) tablet (10 mg total) by mouth daily . NOVOLIN N NPH U-100 INSULIN 100 UNIT/ML INJECTION Use as directed twice daily, approx 85 units daily (Needs Reli-on brand) . NOVOLIN R REGULAR U-100 INSULN 100 UNIT/ML INJECTION USE DIRECTED THREE TIMES DAILY INJECTING UPTO 80 UNITS PER DAY . OMEGA-3 FATTY ACIDS-FISH OIL ORAL Take 1 g by mouth 2 (two) times a day . PANTOPRAZOLE (PROTONIX) 40 MG TABLET Take 1 (one) tablet (40 mg total) by mouth daily . ROSUVASTATIN (CRESTOR) 20 MG TABLET Take 1 (one) tablet (20 mg total) by mouth daily . THERAPEUTIC MULTIVITAMIN (THERAGRAN) TABLET Take 1 (one) tablet by mouth daily . TRAMADOL (ULTRAM) 50 MG TABLET Take 1 (one) tablet (50 mg total) by mouth every 4 (four) hours as needed for pain . TRAZODONE (DESYREL) 50 MG TABLET Take by mouth nightly as needed for sleep. Modified Medications No medications on file Discontinued Medications No medications on file Histories: The past history, social and family history, and allergies were reviewed and updated as needed. ROS Objective: Physical Exam Constitutional: Appearance: Normal appearance. She is well-developed. HENT: Head: Normocephalic and atraumatic. Right Ear: External ear normal. Left Ear: External ear normal. Nose: Nose normal. Eyes: Pupils: Pupils are equal, round, and reactive to light. Neck: Thyroid: No thyroid mass. Vascular: No carotid bruit, hepatojugular reflux or JVD. Cardiovascular: Rate and Rhythm: Normal rate and regular rhythm. Pulses: Intact distal pulses. Heart sounds: Normal heart sounds. Comments: Physiologic S1 and S2. Soft systolic ejection murmur. S4 gallop. Jugular venous pressure does not appear elevated. Apical impulse is not displaced. Pulmonary: Effort: Pulmonary effort is normal. Breath sounds: Normal breath sounds. Comments: No rales or wheezes Abdominal: General: Bowel sounds are normal. Palpations: Abdomen is soft. Tenderness: There is no abdominal tenderness. Musculoskeletal: General: Normal range of motion. Cervical back: Normal range of motion and neck supple. No edema. No muscular tenderness. Comments: Trace ankle edema Skin: General: Skin is warm and dry. Nails: There is no clubbing. Neurological: Mental Status: She is alert and oriented to person, place, and time. Cranial Nerves: No cranial nerve deficit. Deep Tendon Reflexes: Reflexes are normal and symmetric. Psychiatric: Speech: Speech normal. Behavior: Behavior normal. I personally reviewed and verified the review of systems obtained by the senior medical transcriptionist. Vitals: Vitals: 03/14/23 1132 BP: 128/72 BP Location: Left arm Patient Position: Sitting BP Cuff Size: Adult Pulse: 70 SpO2: 93% Weight: 91.2 kg (201 lb) 1. Coronary artery disease involving lower [place] coronary artery of lower [place] heart, unspecified whether angina present 2. Primary hypertension 3. Mixed hyperlipidemia 4. Type 2 diabetes mellitus with other circulatory complication, with long-term current use of insulin (HCC) 5. Hypothyroidism, unspecified type Gonzalez Saunders MD documented in this [id number] Instructions* Patient Instructions* Jamia Ariza RN - 03/14/2023 11:11 AM EDT Jamia Ariza MSN, glazier artist for Gonzalez Saunders MD [address] [place] [address], [address] [place] [address] General office (Scheduling) REFILLS: When in need for refills please call your care team or the office at [phone]. Please include medication name, pharmacy name, and specify 30-day or 90-day supply. Please check with your pharmacy within 24 hours of request for your refill. You must follow up as directed to continue current refills. Thank you! documented in this [id number] Telephone encounter Note* Telephone Encounter - Sen Dunham MA - 02/11/2023 10:13 AM EDT Patient was last seen by 03/2022 and has a follow up scheduled 04/25/23 . Refill appropriate [id number] Miscellaneous Notes* Telephone Encounter - Sen Dunham MA - 02/11/2023 10:13 AM EDT Patient was last seen by 03/2022 and has a follow up scheduled 04/25/23 . Refill appropriate documented in this [id number] Instructions* Patient Instructions* Carmen Llanes II, OD - 12/18/2022 10:53 AM EDT Assessment and Plan E11.9 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 (HCC) (primary encounter diagnosis) Comment: Examination shows no ocular diabetic complications today. Discussed need for optimal diabetes control to minimize chance of ocular complications. Advise patient to immediately report worsening in status or additional symptoms. Continue yearly dilated eye examinations. H10.13 Allergic conjunctivitis, bilateral Comment: Ocular allergies noted both eyes. Recommend use of OTC Pataday 0.2%or 0.7% 1 drop both eyes once daily as needed for relief of symptoms. Advise patient to immediately report worsening in status or additional symptoms. H04.123 Dry eye syndrome of both eyes Comment: Recommend use of Systane Complete 1 gt OU up to qid as needed for relief of symptoms. H53.002 Amblyopia of left eye Comment: Longstanding and stable. Z96.1 Pseudophakia of both eyes Comment: Posterior chamber intraocular lenses are well positioned and clear. 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 I have confirmed and edited as necessary the relevant ophthalmic history, ROS, and the neuro exam findings as obtained by others. I have seen and examined Carolyn Cintron. I have discussed the case and the management of this patient's care with the Resident/Fellow, if applicable. I also have reviewed and agree with the assessment and plan as stated above and agree withall of its relevant components. Carmen Llanes II, OD documented in this encounterMet[facility] History of Present illness Narrative* Carmen Llanes II, OD - 12/18/2022 10:52 AM EDT Assessment and Plan E11.9 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 (HCC) (primary encounter diagnosis) Comment: Examination shows no ocular diabetic complications today. Discussed need for optimal diabetes control to minimize chance of ocular complications. Advise patient to immediately report worsening in status or additional symptoms. Continue yearly dilated eye examinations. H10.13 Allergic conjunctivitis, bilateral Comment: Ocular allergies noted both eyes. Recommend use of OTC Pataday 0.2%or 0.7% 1 drop both eyes once daily as needed for relief of symptoms. Advise patient to immediately report worsening in status or additional symptoms. H04.123 Dry eye syndrome of both eyes Comment: Recommend use of Systane Complete 1 gt OU up to qid as needed for relief of symptoms. H53.002 Amblyopia of left eye Comment: Longstanding and stable. Z96.1 Pseudophakia of both eyes Comment: Posterior chamber intraocular lenses are well positioned and clear. 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 I have confirmed and edited as necessary the relevant ophthalmic history, ROS, and the neuro exam findings as obtained by others. I have seen and examined Carolyn Cintron. I have discussed the case and the management of this patient's care with the Resident/Fellow, if applicable. I also have reviewed and agree with the assessment and plan as stated above and agree withall of its relevant components. Carmen Llanes II, ARACELI documented in this encounterMet[facility]05-01-2023 Telephone encounter Note * Telephone Encounter - Taylor Hicks RN - 11/04/2022 3:39 PM EDT Refill needed to local pharmacy. Patient having issues with [facility] Dr. Saunders out of the office. [id number] Miscellaneous Notes* Telephone Encounter - Taylor Hicks RN - 11/04/2022 3:39 PM EDT Refill needed to local pharmacy. Patient having issues with [facility]. Dr. Saunders out of the office. documented in this [id number] Telephone encounter Note* Telephone Encounter - Joanna Fabian MA - 09/13/2022 1:57 PM EST Pt was last seen by Dr. Saunders in 03/2022, w/ recall due for 09/2022. Short term refill appropriate. [id number] Miscellaneous Notes* Telephone Encounter - Joanna Fabian MA - 09/13/2022 1:57 PM EST Pt was last seen by Dr. Saunders in 03/2022, w/ recall due for 09/2022. Short term refill appropriate. * Telephone Encounter - Joanna Fabian MA - 09/13/2022 1:47 PM EST Sent msg to scheduling to contact pt regarding recall. documented in this [id number] Telephone encounter Note* Telephone Encounter - Joanna Fabian MA - 09/13/2022 1:47 PM EST Sent msg to scheduling to contact pt regarding recall. [id number] Instructions* Patient Instructions* Taylor Hicks RN - 04/05/2022 11:56 AM EDT Holter Help and Phone Number ADRIEN Abarca [phone] [employer] [phone] [employer] [phone] Date and Time of Study to End Holter Monitor Essentials 1. The device is waterproof. Showers are OKAY 2. Device battery is to last up to 5 days. Anything past 5 days needs to be charged. Hospital Pharmacy Technician included in the box. 3. Extra strips are inside of the box. Sensitivity patches will need to be mailed by [employer] if needed. [phone] 4. Please DO NOT return the device to [facility] after the study has been completed. It will be the patient's responsibility to return the device to [facility] [[email or web address] 5. Diary is located in the box. Date, Time of event and symptom is to be written down. Please note if having palpitations frequently, it is not necessary to write down every symptom. Your device will catch every heart rhythm for you. 6. After the device is mailed, it will take 1-2 weeks for your results to be returned to you. It is the ordering provider s nurse responsibility to call you with the results. [employer] Drop Off Box Locations Number for [employer]: [phone] [place] THE [facility] [address] [place], [address] [address] [place], [address] [place], [address] [facility] STORE # [id number] [address] [place], [address] [employer] [facility] [facility] [address] [place], [address] Joint venture between [facility] and [facility] [place] [address] [place], [address] [facility] [address] [place], [address] [employer] [employer] [facility] [facility] [address] [place], [address] [facility] [address] [facility] [place], [address] [facility] [address] [facility] [address], [place], [address] [employer] [facility] [facility] [address]1037 [address] [place] [address] [facility] [address] [place], [address] [facility] [address] [place], [address] [facility] [place], [address] [facility] STORE # 2167 [address] [place], [address] [employer] [facility] [address] [place], [address] Taylor BOYD, glazier artist for Gonzalez Saunders MD [address] [place] [address], 3rd Floor [place], [place] [address] General office (Scheduling) documented in this [id number] History of Present illness Narrative* Gonzalez Saunders MD - 04/05/2022 11:54 AM EDT CARDIOLOGY PROGRESS NOTE [facility] [address] ([address]) [facility] [address] [facility] [address] Physicians: Ryan Gomez MD (Family); No ref. provider found (Referring) Subjective: Carolyn Cintron is a 76 y.o. female seen in the office today for No chief complaint on file. . HPI: Patient presents in cardiovascular follow-up. She is accompanied by her on her office visitthis morning. Very pleasant 76-year-old white female with high risk clinical features for ischemic heart disease including hypertension, type 2 diabetes mellitus, and hyperlipidemia. Left heart catheterization 2008 demonstrated moderate disease in the right coronary artery and circumflex although physiologic interrogation did not demonstrate physiologic significance to angiographic disease identified. 2D echocardiogram June 2020 with preserved LV systolic function and without significant valvular heart disease. Myocardial perfusion study March 2021 was normal without evidence for provokable ischemia. Patient notes over the past 3 to 4 months episodic spells dizziness and near syncope primarily occurring at rest. No associated symptoms of palpitations, chest discomfort, or shortness of breath. 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 She is not describing shortness of breath or chest discomfort with activities of daily living. Nocongestive manifestations. Assessment/plan: Patient has resting sinus bradycardia with current exam not suggesting evidence for cardiac decompensation. I have recommended we decrease her metoprolol to 25 mg twice daily. I have recommended 30-day ambulatory event recorder. Chronic disease management and risk factor modification were reviewed.Additional recommendations may be forthcoming following her event recorder. Assessment & Plan: No problem-specific Assessment & Plan notes found for this encounter. EKG Interpretation: sinus bradycardia, nonspecific ST and T waves changes, poor R wave progression Follow Up Ordered: No follow-ups on file. Patient's Medications New Prescriptions No medications on file Previous Medications ASPIRIN 81 MG EC TABLET Take 1 (one) tablet (81 mg total) by mouth daily . BLOOD SUGAR DIAGNOSTIC (GLUCOSE BLOOD) STRIPS Use to test 6 times per day. DG code E11.65. Use whatcoordinates with pt meter. . BLOOD SUGAR DIAGNOSTIC (ONETOUCH ULTRA BLUE TEST STRIP) STRIPS One touch ultra blue strips - use Secure[employer] BG 6x a day.DX code E11.65 . BLOOD SUGAR DIAGNOSTIC (ONETOUCH VERIO TEST STRIPS) STRIPS USe to check BG 4x daily, DX code E11.65insulin used . BLOOD SUGAR DIAGNOSTIC (ONETOUCH VERIO) STRIPS Use as directed 6 times/day One Touch Verio strips . CHOLECALCIFEROL, VITAMIN D3, 25 MCG (1,000 UNIT) CAPSULE Take 1,000 Units by mouth 2 (two) times a day . CYANOCOBALAMIN (B-12) 1000 MCG TABLET Take 1,000 mcg by mouth daily. FENOFIBRATE MICRONIZED (LOFIBRA) 134 MG CAPSULE TAKE 1 CAPSULE BY MOUTH DAILY. TAKE WITH FOOD. FLUTICASONE (FLONASE) 50 MCG/ACTUATION NASAL SPRAY Instill 1 spray into each nostril daily . FUROSEMIDE (LASIX) 20 MG TABLET Take 1 (one) tablet (20 mg total) by mouth every other day . KLOR-CON M20 20 MEQ TABLET Take 1 (one) tablet (20 mEq total) by mouth every other day . LEVOTHYROXINE (SYNTHROID, LEVOTHROID) 112 MCG TABLET Take 112 mcg by mouth once daily . LISINOPRIL (PRINIVIL,ZESTRIL) 10 MG TABLET TAKE 1 TABLET BY MOUTH EVERY DAY LORATADINE (CLARITIN LIQUI-GEL) 10 MG CAP Take by mouth daily . MAGNESIUM OXIDE ORAL Take 800 mg by mouth every other day . MONTELUKAST (SINGULAIR) 10 MG TABLET Take 10 mg by mouth daily . NOVOLIN N NPH U-100 INSULIN 100 UNIT/ML INJECTION Use as directed twice daily, approx 85 units daily (Needs Reli-on brand) . NOVOLIN R REGULAR U-100 INSULN 100 UNIT/ML INJECTION USE DIRECTED THREE TIMES DAILY INJECTING UPTO 80 UNITS PER DAY . OMEGA-3 FATTY ACIDS-FISH OIL ORAL Take 1 g by mouth 2 (two) times a day . PANTOPRAZOLE (PROTONIX) 40 MG TABLET Take 40 mg by mouth daily. ROSUVASTATIN (CRESTOR) 20 MG TABLET Take 1 (one) tablet (20 mg total) by mouth daily . THERAPEUTIC MULTIVITAMIN (THERAGRAN) TABLET Take 1 tablet by mouth daily. TRAZODONE (DESYREL) 50 MG TABLET Take by mouth nightly as needed for sleep. Modified Medications Modified Medication Previous Medication METOPROLOL TARTRATE (LOPRESSOR) 50 MG TABLET metoprolol tartrate (LOPRESSOR) 50 MG tablet Take 0.5 (one-half) tablet (25 mg total) by mouth 2 (two) times a day . TAKE 1 TABLET BY MOUTH TWICE A DAY Discontinued Medications LISINOPRIL (PRINIVIL,ZESTRIL) 10 MG TABLET Take 1 (one) tablet (10 mg total) by mouth daily . Histories: The past history, social and family history, and allergies were reviewed and updated as needed. ROS Objective: Physical Exam Constitutional: Appearance: Normal appearance. She is well-developed. HENT: Head: Normocephalic and atraumatic. Right Ear: External ear normal. Left Ear: External ear normal. Nose: Nose normal. Eyes: Pupils: Pupils are equal, round, and reactive to light. Neck: Thyroid: No thyroid mass. Vascular: No carotid bruit, hepatojugular reflux or JVD. Cardiovascular: Rate and Rhythm: Normal rate and regular rhythm. Pulses: Intact distal pulses. Heart sounds: Normal heart sounds. Comments: Physiologic S1 and S2. Soft systolic ejection murmur. S4 gallop. Jugular venous pressure does not appear elevated. Apical impulse is not displaced. Pulmonary: Effort: Pulmonary effort is normal. Breath sounds: Normal breath sounds. Comments: No rales or wheezes Abdominal: General: Bowel sounds are normal. Palpations: Abdomen is soft. Tenderness: There is no abdominal tenderness. Musculoskeletal: General: Normal range of motion. Cervical back: Normal range of motion and neck supple. No edema. No muscular tenderness. Comments: Trace ankle edema Skin: General: Skin is warm and dry. Nails: There is no clubbing. Neurological: Mental Status: She is alert and oriented to person, place, and time. Cranial Nerves: No cranial nerve deficit. Deep Tendon Reflexes: Reflexes are normal and symmetric. Psychiatric: Speech: Speech normal. Behavior: Behavior normal. I personally reviewed and verified the review of systems obtained by the senior medical transcriptionist. Vitals: Vitals: 04/05/22 1111 BP: (!) 119/58 BP Location: Left arm Patient Position: Sitting Pulse: (!) 57 SpO2: 96% Weight: 93.4 kg (205 lb 14.4 oz) Height: 5' 2.99 1. Near syncope 2. Coronary artery disease involving lower sioux coronary artery of lower sioux heart, unspecified whether angina present Gonzalez Saunders MD documented in this [id number] Telephone encounter Note* Telephone Encounter - Sen Dunham MA - 03/06/2022 8:17 AM EDT Patient was last seen 03/2021 and has an upcoming appointment scheduled in March 2022. Refill appropriate [id number] Miscellaneous Notes* Telephone Encounter - Sen Dunham MA - 03/06/2022 8:17 AM EDT Patient was last seen 03/2021 and has an upcoming appointment scheduled in March 2022. Refill appropriate documented in this [id number] Instructions* Patient Instructions* Carmen Llanes II, OD - 12/11/2021 9:52 AM EDT Assessment and Plan E11.9 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 (HCC) (primary encounter diagnosis) Comment: Examination shows no ocular diabetic complications today. Discussed need for optimal diabetes control to minimize chance of ocular complications. Advise patient to immediately report worsening in status or additional symptoms. Continue yearly dilated eye examinations. H04.123 Dry eye syndrome of both eyes Comment: Recommend use of Systane Complete 1 gt OU up to qid as needed for relief of symptoms. Z96.1 Pseudophakia of both eyes Comment: Posterior chamber intraocular lenses are well positioned and clear. H53.002 Amblyopia of left eye Comment: Past esotropia as child reported with uncorrected high hyperopic refractive error. No glasses until 6-7 y.o. H52.223 Regular astigmatism of both eyes Comment: Present glasses power stable. I have confirmed and edited as necessary the relevant ophthalmic history, ROS, and the neuro exam findings as obtained by others. I have seen and examined Carolyn Cintron. I have discussed the case and the management of this patient's care with the Resident/Fellow, if applicable. I also have reviewed and agree with the assessment and plan as stated above and agree withall of its relevant components. Carmen Llanes II, OD [facility] History of Present illness Narrative* Carmen Llanes II, OD - 12/11/2021 9:48 AM EDT Assessment and Plan E11.9 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 (HCC) (primary encounter diagnosis) Comment: Examination shows no ocular diabetic complications today. Discussed need for optimal diabetes control to minimize chance of ocular complications. Advise patient to immediately report worsening in status or additional symptoms. Continue yearly dilated eye examinations. H04.123 Dry eye syndrome of both eyes Comment: Recommend use of Systane Complete 1 gt OU up to qid as needed for relief of symptoms. Z96.1 Pseudophakia of both eyes Comment: Posterior chamber intraocular lenses are well positioned and clear. H53.002 Amblyopia of left eye Comment: Past esotropia as child reported with uncorrected high hyperopic refractive error. No glasses until 6-7 y.o. H52.223 Regular astigmatism of both eyes Comment: Present glasses power stable. I have confirmed and edited as necessary the relevant ophthalmic history, ROS, and the neuro exam findings as obtained by others. I have seen and examined Carolyn Cintron. I have discussed the case and the management of this patient's care with the Resident/Fellow, if applicable. I also have reviewed and agree with the assessment and plan as stated above and agree withall of its relevant components. Carmen Llanes II, OD documented in this [facility] Telephone encounter Note * Telephone Encounter - Gwen Lee MA - 11/19/2021 8:25 AM EDT Last ov 03/09/21 w/ Dr. Saunders Upcoming 04/05/22 [id number] Miscellaneous Notes* Telephone Encounter - Gwen Lee MA - 11/19/2021 8:25 AM EDT Last ov 03/09/21 w/ Dr. Saunders Upcoming 04/05/22 documented in this [id number] Telephone encounter Note* Telephone Encounter - Taylor Hicks RN - 11/19/2021 8:04 AM EDT Refill needed to local pharmacy. Next OV with Dr. Saunders on 04/05/22. [id number] Miscellaneous Notes* Telephone Encounter - Taylor Hicks RN - 11/19/2021 8:04 AM EDT Refill needed to local pharmacy. Next OV with Dr. Saunders on 04/05/22. documented in this [id number] Telephone encounter Note* Telephone Encounter - Taylor Hicks RN - 09/07/2021 2:26 PM EST Refill needed to local pharmacy. Next OV due in March. [id number] Miscellaneous Notes* Telephone Encounter - Taylor Hicks RN - 09/07/2021 2:26 PM EST Refill needed to local pharmacy. Next OV due in March. documented in this [id number] History of Present illness Narrative* Jessica Varela RN - 05/28/2021 3:57 PM EST Tolerates infusion well, no signs of reaction, resting quietly in recliner. Instructed if any questions, concerns, or worsening symptoms within the next 7 days, please call primary care provider. Forimmediate emergencies, please go to the nearest Emergency Room or call 911. * Jessica Varela RN - 05/28/2021 2:06 PM EST Special isolation precautions are in place with signage outside this patient's room. This attending ambulatory care performs hand hygiene and enters the patient room wearing: gloves an appropriately fitting (N-95, PAPR, Aura) mask face shield protective gown to provide care. See documentation for the care provided. Patient is admitted to the [facility] for infusion of monoclonal antibody. Patient placed in room 2501.Specialized isolation procedures in place. Patient is alert and oriented. Will obtain VS, place IV,and release Therapy Plan. Medication Fact Sheet given to patient prior to infusion. documented in this [id number] Instructions* Patient Instructions* Jessica Varela RN - 05/28/2021 3:57 PM EST Images from the original note were not included. Instructed if any questions, concerns, or worsening symptoms within the next 7 days, please call primary care provider. Expect a call back from this unit in 24-48 hrs to check to see how you are doing. For immediate emergencies, please go to the nearest Emergency Room or call 911. documented in this [id number] History of Present illness Narrative* Gonzalez Saunders MD - 03/09/2021 1:55 PM EDT CARDIOLOGY PROGRESS NOTE [facility] [address] ([address]) [facility] [address] [facility] [address] Physicians: Ryan Gomez MD (Family); No ref. provider found (Referring) Subjective: Carolyn Cintron is a 75 y.o. female seen in the office today for Follow-up (6 mo overdue) . HPI: Patient presents in cardiovascular follow-up. Pleasant 74-year-old white female with high risk clinical features for ischemic heart disease including hypertension, type 2 diabetes mellitus, and hyperlipidemia. Left heart catheterization 2008 demonstrated moderate disease in the right coronary artery and circumflex although physiologic interrogation did not demonstrate physiologic significance to angiographic disease identified. 2D echocardiogram June 2020 with preserved LV systolic functionwithout significant valvular heart disease. Patient has noticed longstanding history of exercise intolerance and dyspnea with activity that appears worse over the past several months. 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 No rest symptoms. Patient is not describing anginal sounding chest symptoms. Patient does not notice shortness of breath or chest discomfort with activities of daily living. Patient states she has been compliant with her medical regiment. NoPND or orthopnea. No syncope. Electrocardiogram today demonstrates sinus rhythm with first-degree AV block. Summary: I would like to update her myocardial perfusion study. We have made no change in her current medical regiment pending completion of her myocardial perfusion study at which time additional recommendations will be forthcoming. Assessment & Plan: No problem-specific Assessment & Plan notes found for this encounter. EKG Interpretation: Follow Up Ordered: Return in about 1 year (around 03/09/2022). Patient's Medications New Prescriptions No medications on file Previous Medications ASPIRIN 81 MG EC TABLET Take 1 (one) tablet (81 mg total) by mouth daily . BLOOD SUGAR DIAGNOSTIC (GLUCOSE BLOOD) STRIPS Use to test 6 times per day. DG code E11.65. Use whatSmartNewsinates with pt meter. . BLOOD SUGAR DIAGNOSTIC (ONETOUCH ULTRA BLUE TEST STRIP) STRIPS One touch ultra blue strips - use tocheck BG 6x a day.DX code E11.65 . BLOOD SUGAR DIAGNOSTIC (ONETOUCH VERIO TEST STRIPS) STRIPS USe to check BG 4x daily, DX code E11.65insulin used . BLOOD SUGAR DIAGNOSTIC (ONETOUCH VERIO) STRIPS Use as directed 6 times/day One Touch Verio strips . CHOLECALCIFEROL, VITAMIN D3, (VITAMIN D3) 1,000 UNIT CAPSULE Take 1,000 Units by mouth 2 (two) times a day . CYANOCOBALAMIN (VITAMIN B-12) 1000 MCG TABLET Take 1,000 mcg by mouth daily. FENOFIBRATE MICRONIZED (LOFIBRA) 134 MG CAPSULE Take 1 (one) capsule (134 mg total) by mouth daily Give with food . FLUTICASONE (FLONASE) 50 MCG/ACTUATION NASAL SPRAY Instill 1 spray into each nostril daily . FUROSEMIDE (LASIX) 20 MG TABLET Take 1 (one) tablet (20 mg total) by mouth every other day . KLOR-CON M20 20 MEQ TABLET Take 1 (one) tablet (20 mEq total) by mouth every other day . LEVOTHYROXINE (SYNTHROID, LEVOTHROID) 112 MCG TABLET Take 112 mcg by mouth once daily . LISINOPRIL (PRINIVIL,ZESTRIL) 10 MG TABLET Take 1 (one) tablet (10 mg total) by mouth daily . LORATADINE (CLARITIN LIQUI-GEL) 10 MG CAP Take by mouth daily . MAGNESIUM OXIDE ORAL Take 800 mg by mouth every other day . METOPROLOL TARTRATE (LOPRESSOR) 50 MG TABLET Take 1 (one) tablet (50 mg total) by mouth 2 (two) times a day . MONTELUKAST (SINGULAIR) 10 MG TABLET Take 10 mg by mouth daily . NOVOLIN N NPH U-100 INSULIN 100 UNIT/ML INJECTION Use as directed twice daily, approx 85 units daily (Needs Reli-on brand) . NOVOLIN R REGULAR U-100 INSULN 100 UNIT/ML INJECTION USE DIRECTED THREE TIMES DAILY INJECTING UPTO 80 UNITS PER DAY . OMEGA-3 FATTY ACIDS-FISH OIL ORAL Take 1 g by mouth 2 (two) times a day . PANTOPRAZOLE (PROTONIX) 40 MG TABLET Take 40 mg by mouth daily. ROSUVASTATIN (CRESTOR) 20 MG TABLET Take 1 (one) tablet (20 mg total) by mouth daily . THERAPEUTIC MULTIVITAMIN (THERAGRAN) TABLET Take 1 tablet by mouth daily. TRAZODONE (DESYREL) 50 MG TABLET Take by mouth nightly as needed for sleep. Modified Medications No medications on file Discontinued Medications C/SOURCHERRY/CELERY/GRAPE SEED (TART MOY ORAL) Take by mouth daily . Histories: The past history, social and family history, and allergies were reviewed and updated as needed. ROS Objective: Physical Exam Constitutional: Appearance: Normal appearance. She is well-developed. HENT: Head: Normocephalic and atraumatic. Right Ear: External ear normal. Left Ear: External ear normal. Nose: Nose normal. Eyes: Pupils: Pupils are equal, round, and reactive to light. Neck: Thyroid: No thyroid mass. Vascular: No carotid bruit, hepatojugular reflux or JVD. Cardiovascular: Rate and Rhythm: Normal rate and regular rhythm. Pulses: Intact distal pulses. Heart sounds: Normal heart sounds. Comments: Physiologic S1 and S2. Soft systolic ejection murmur. S4 gallop. Jugular venous pressure does not appear elevated. Apical impulse is not displaced. Pulmonary: Effort: Pulmonary effort is normal. Breath sounds: Normal breath sounds. Abdominal: General: Bowel sounds are normal. Palpations: Abdomen is soft. Tenderness: There is no abdominal tenderness. Musculoskeletal: General: Normal range of motion. Cervical back: Normal range of motion and neck supple. No edema. No muscular tenderness. Comments: Trace to 1+ pretibial edema Skin: General: Skin is warm and dry. Nails: There is no clubbing. Neurological: Mental Status: She is alert and oriented to person, place, and time. Cranial Nerves: No cranial nerve deficit. Deep Tendon Reflexes: Reflexes are normal and symmetric. Psychiatric: Speech: Speech normal. Behavior: Behavior normal. I personally reviewed and verified the review of systems obtained by the senior medical transcriptionist. Vitals: Vitals: 03/09/21 1327 BP: 131/63 BP Location: Right arm Patient Position: Sitting BP Cuff Size: X-large Adult Pulse: 60 SpO2: 96% Weight: 95.5 kg (210 lb 8 oz) Height: 5' 3 1. SOB (shortness of breath) on exertion 2. Coronary artery disease involving lower sioux coronary artery of lower sioux heart, unspecified whether angina present Gonzalez Saunders MD documented in this [id number] Instructions* Patient Instructions* Taylor Hicks RN - 03/09/2021 1:55 PM EDT NUCLEAR MEDICINE CARDIAC STRESS TEST THIS IS A 3-4 HOUR TEST Instructions: Appointment Time: , ____/____/____ at ____:____ Prep: Take your morning medications. NO CAFFEINE FOR 24 HOURS prior to your test. This includes drinks labeled decaffeinated. Nothing to eat 4 hours prior to your test. A small snack will be provided (crackers, granola bar, juice), or you may bring your own snack for after your stress test. You may drink fluids leading up to your test as long as they are caffeine-free. Decaffeinated drinks still contain some caffeine, please do not drink anything containing caffeine for 24 hours. NO SMOKING the day of your test. Wear comfortable shoes and clothing for exercising. Please wear short sleeves. No metal buttons or snaps. Procedure: Check-in/Registration. Please bring photo ID, insurance cards, and any physician orders. Test explained in detail and IV started. Stress test performed, nuclear medicine will be injected through your IV during the stress test. Stress test recovery period. Heart scan performed. The doctor will review the pictures of your heart and decide if more pictures are needed before youleave. If more are needed you will get another injection of nuclear medicine and this will take an additional hour. The total time for this test is 3-4 hours. There are medications that interfere with this test. You may be instructed to hold medications. If so that will be listed here: If you have any further questions please contact your care team or [phone]. Covid Testing Prior to your procedure or test you will need to have a test to rule out Covid 19. This is an oral swab that is done at a drive-up testing site in [place]. You are to have this test completed no earlier than 96 hours but no less than 72 hours before your cardiac procedure or test. The testing site is at [address] [place] [address] in [place]. It is off of [address] between and [facility]. The hours of testing are Friday-Friday 7:30-4. No WEEKEND hours will be offered. The order will be entered in our system so you do not need an order to take with you. Please take ID and insurance card. If your test result comes back positive we will notify you. Otherwise please come to your test on the scheduled date and time. Covid Test to be done on . Taylor MORRISON [phone] documented in this [id number] Miscellaneous Notes* Telephone Encounter - Taylor Hicks RN - 02/27/2021 10:42 AM EDT Refills needed. Last OV with Dr. Saunders on 07/27/20. documented in this [id number] History of Past illness Narrative* Problem Noted Date Resolved Date S/P cataract extraction and insertion of intraocular lens, right 03/13/2018 12/08/2020 S/P cataract extraction and insertion of intraocular lens, left 02/27/2018 12/08/2020 Combined form of age-related cataract, right eye 02/21/2018 03/13/2018 Regular astigmatism of left eye 02/16/2018 02/27/2018 Combined form of age-related cataract, left eye 05/31/2015 02/27/2018 Type 1 diabetes 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 09/19/2015 Other vitreous opacities - Both Eyes 05/25/2014 06/12/2016 Other and combined forms of senile cataract - Haile th Eyes 05/25/2014 06/12/2016 Blepharitis, unspecified - Both Eyes 05/25/2014 06/12/2016 documented as of this encounter (statuses as of 12/11/2021) [facility] History of Past illness Narrative* Problem Noted Date Resolved Date S/P cataract extraction and insertion of intraocular lens, right 03/13/2018 12/08/2020 S/P cataract extraction and insertion of intraocular lens, left 02/27/2018 12/08/2020 Combined form of age-related cataract, right eye 02/21/2018 03/13/2018 Regular astigmatism of left eye 02/16/2018 02/27/2018 Combined form of age-related cataract, left eye 05/31/2015 02/27/2018 Type 1 diabetes 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 09/19/2015 Other vitreous opacities - Both Eyes 05/25/2014 06/12/2016 Other and combined forms of senile cataract - Haile th Eyes 05/25/2014 06/12/2016 Blepharitis, unspecified - Both Eyes 05/25/2014 06/12/2016 documented as of this encounter (statuses as of 12/18/2022) [facility] History of Past illness Narrative* Problem Noted Date Diagnosed Date Resolved Date S/P cataract extraction and insertion of intraocular lens, right 03/13/2018 12/08/2020 S/P cataract extraction and insertion of intraocular lens, left 02/27/2018 12/08/2020 Combined form of age-related cataract, right eye 02/21/2018 03/13/2018 Regular astigmatism of left eye 02/16/2018 02/27/2018 Combined form of age-related cataract, left eye 05/31/2015 02/27/2018 Type 1 diabetes 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 4 09/19/2015 Other vitreous opacities - Both Eyes 05/25/2014 06/12/2016 Other and combined forms of senile cataract - Both Eyes 05/25/2014 06/12/2016 Blepharitis, unspecified - Both Eyes 05/25/2014 06/12/2016 documented as of this encounter (statuses as of 04/17/2023) [facility] Diagnosis SOB (shortness of breath) on exertion- Primary Shortness of breath Coronary artery disease involving [place] coronary artery of [place] heart, unspecified whether angina present Pre-procedure lab exam Pre-procedural laboratory examination [facility] Diagnosis COVID-19- Primary [facility] Diagnosis COVID-19 [facility] Diagnosis 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 (HCC)- Primary Type II or unspecified type diabetes mellitus without mention of complication, not stated as uncontrolled Dry eye syndrome of both eyes Pseudophakia of both eyes Lens replaced by other means Regular astigmatism of both eyes Regular astigmatism Amblyopia of left eye Amblyopia, unspecified documented in this encounter [facility] note* Diagnosis Near syncope- Primary Coronary artery disease involving [place] coronary artery of [place] heart, unspecified whether angina present [facility] Diagnosis 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 (HCC)- Primary Type II or unspecified type diabetes mellitus without mention of complication, not stated as uncontrolled Allergic conjunctivitis, bilateral Other chronic allergic conjunctivitis Dry eye syndrome of both eyes Amblyopia of left eye Amblyopia, unspecified Pseudophakia of both eyes Lens replaced by other means Regular astigmatism of right eye Regular astigmatism documented in this encounter [facility] note* Diagnosis Onset Date Resolution Status Controlled type 2 diabetes k[place], with long-term current use of insulin chronic Hyperlipidemia due to type 2 diabetes mellitus chronic 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, 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 Hypothyroidism (acquired) ch ronic Kidney disease, chronic, stage III (GFR 30-59 ml/min) chronic Polyneuropathy due to type 2 diabetes mellitus [facility] Work Phone: Evaluation note* Diagnosis Coronary artery disease involving [place] coronary artery of [place] heart, unspecified whether angina present- Primary Primary hypertension Unspecified essential hypertension Mixed hyperlipidemia Type 2 diabetes mellitus with other circulatory complication, with long-term current use of insulin (HCC) Hypothyroidism, unspecified type Stage 3 chronic kidney disease, unspecified whether stage 3a or 3b CKD (HCC) documented in this encounter [facility] note* Diagnosis 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- Primary documented in this encounter [facility] note* Diagnosis Onset Date Resolution Status Controlled type 2 diabetes k[place], with long-term current use of insulin chronic Hyperlipidemia due to type 2 diabetes mellitus chronic 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, 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 Hypothyroidism (acquired) ch ronic Kidney disease, chronic, sta ge III (GFR 30-59 ml/min) chronic Obesity chronic Polyneuropathy due to type 2 diabetes mellitus chronic Hypertriglyceridemia acute Controlled type 2 diabetes m wolf, with long-term current use of insulin chronic 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, 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 Hypothyroidism (acquired) ch ronic Kidney disease, chronic, sta ge III (GFR 30-59 ml/min) chronic Establishing care with new doctor, encounter for noneactive Gout noneactive Chronic low back pain noneac tive Chronic abdominal pain nonea ctive Anxiety and depression nonea ctive Hypertriglyceridemia acute Controlled type 2 diabetes k[place] bloom, with long-term current use of insulin chronic 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, 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 Hypothyroidism (acquired) ch ronic Kidney disease, chronic, sta ge III (GFR 30-59 ml/min) chronic Left leg swelling noneactive Gout noneactive Chronic low back pain noneac tive Chronic abdominal pain nonea ctive Anxiety and depression nonea ctive [facility] Work Phone: Evaluation note* Diagnosis 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 (HCC)- Primary Type II or unspecified type diabetes mellitus without mention of complication, not stated as uncontrolled Allergic conjunctivitis, bilateral Other chronic allergic conjunctivitis Dry eye syndrome of both eyes Amblyopia of left eye Amblyopia, unspecified Pseudophakia of both eyes Lens replaced by other means Regular astigmatism of right eye Regular astigmatism [facility] Diagnosis Hypercholesterolemia- Primary Pure hypercholesterolemia Coronary artery disease involving [place] coronary artery of [place] heart without angina pectoris Essential hypertension with goal blood pressure less than 130/85 Type 2 diabetes mellitus with other circulatory complications (HCC) Hypercholesterolemia- Primary Pure hypercholesterolemia Coronary artery disease involving [place] coronary artery of [place] heart without angina pectoris Essential hypertension Unspecified essential hypertension Type 2 diabetes mellitus with other circulatory complication Coronary artery disease involving [place] coronary artery of [place] heart, angina presence unspecified- Primary Essential hypertension Unspecified essential hypertension Type 2 diabetes mellitus with other circulatory complication Hypercholesterolemia Pure hypercholesterolemia SOB (shortness of breath) on exertion Shortness of breath Hypercholesterolemia- Primary Pure hypercholesterolemia Coronary artery disease involving [place] coronary artery of [place] heart without angina pectoris Essential hypertension Unspecified essential hypertension Type 2 diabetes mellitus with other circulatory complication, with long-term current use of insulin (HCC) Hypercholesterolemia- Primary Pure hypercholesterolemia Coronary artery disease involving [place] coronary artery of [place] heart without angina pectoris Essential hypertension Unspecified essential hypertension Type 2 diabetes mellitus with other circulatory complication, with long-term current use of insulin (HCC) Coronary artery disease involving [place] coronary artery of [place] heart without angina pectoris Essential hypertension Unspecified essential hypertension Hypercholesterolemia Pure hypercholesterolemia CARRILLO (dyspnea on exertion)- Primary Other dyspnea and respiratory abnormality Coronary artery disease involving [place] coronary artery of [place] heart, angina presence unspecified Essential hypertension Unspecified essential hypertension Mixed hyperlipidemia Type 2 diabetes mellitus with other circulatory complication, with long-term current use of insulin (HCC) Medication therapy changed Coronary artery disease involving [place] coronary artery of [place] heart, angina presence unspecified- Primary Essential hypertension Unspecified essential hypertension Mixed hyperlipidemia Type 2 diabetes mellitus with other circulatory complication, with long-term current use of insulin (HCC) Pain- Primary Generalized pain documented in this encounter [facility] note* Diagnosis Hypercholesterolemia- Primary Pure hypercholesterolemia Coronary artery disease involving [place] coronary artery of [place] heart without angina pectoris Essential hypertension with goal blood pressure less than 130/85 Type 2 diabetes mellitus with other circulatory complications (HCC) Hypercholesterolemia- Primary Pure hypercholesterolemia Coronary artery disease involving [place] coronary artery of [place] heart without angina pectoris Essential hypertension Unspecified essential hypertension Type 2 diabetes mellitus with other circulatory complication Coronary artery disease involving [place] coronary artery of [place] heart, angina presence unspecified- Primary Essential hypertension Unspecified essential hypertension Type 2 diabetes mellitus with other circulatory complication Hypercholesterolemia Pure hypercholesterolemia SOB (shortness of breath) on exertion Shortness of breath Hypercholesterolemia- Primary Pure hypercholesterolemia Coronary artery disease involving [place] coronary artery of [place] heart without angina pectoris Essential hypertension Unspecified essential hypertension Type 2 diabetes mellitus with other circulatory complication, with long-term current use of insulin (HCC) Hypercholesterolemia- Primary Pure hypercholesterolemia Coronary artery disease involving [place] coronary artery of [place] heart without angina pectoris Essential hypertension Unspecified essential hypertension Type 2 diabetes mellitus with other circulatory complication, with long-term current use of insulin (HCC) Coronary artery disease involving [place] coronary artery of [place] heart without angina pectoris Essential hypertension Unspecified essential hypertension Hypercholesterolemia Pure hypercholesterolemia CARRILLO (dyspnea on exertion)- Primary Other dyspnea and respiratory abnormality Coronary artery disease involving [place] coronary artery of [place] heart, angina presence unspecified Essential hypertension Unspecified essential hypertension Mixed hyperlipidemia Type 2 diabetes mellitus with other circulatory complication, with long-term current use of insulin (HCC) Medication therapy changed Coronary artery disease involving [place] coronary artery of [place] heart, angina presence unspecified- Primary Essential hypertension Unspecified essential hypertension Mixed hyperlipidemia Type 2 diabetes mellitus with other circulatory complication, with long-term current use of insulin (HCC) Humeral head fracture, right, closed, initial encounter- Primary documented in this encounter [facility] note* Diagnosis Hypercholesterolemia- Primary Pure hypercholesterolemia Coronary artery disease involving [place] coronary artery of [place] heart without angina pectoris Essential hypertension with goal blood pressure less than 130/85 Type 2 diabetes mellitus with other circulatory complications (HCC) Hypercholesterolemia- Primary Pure hypercholesterolemia Coronary artery disease involving [place] coronary artery of [place] heart without angina pectoris Essential hypertension Unspecified essential hypertension Type 2 diabetes mellitus with other circulatory complication Coronary artery disease involving [place] coronary artery of [place] heart, angina presence unspecified- Primary Essential hypertension Unspecified essential hypertension Type 2 diabetes mellitus with other circulatory complication Hypercholesterolemia Pure hypercholesterolemia SOB (shortness of breath) on exertion Shortness of breath Hypercholesterolemia- Primary Pure hypercholesterolemia Coronary artery disease involving [place] coronary artery of [place] heart without angina pectoris Essential hypertension Unspecified essential hypertension Type 2 diabetes mellitus with other circulatory complication, with long-term current use of insulin (HCC) Hypercholesterolemia- Primary Pure hypercholesterolemia Coronary artery disease involving [place] coronary artery of [place] heart without angina pectoris Essential hypertension Unspecified essential hypertension Type 2 diabetes mellitus with other circulatory complication, with long-term current use of insulin (HCC) Coronary artery disease involving [place] coronary artery of [place] heart without angina pectoris Essential hypertension Unspecified essential hypertension Hypercholesterolemia Pure hypercholesterolemia CARRILLO (dyspnea on exertion)- Primary Other dyspnea and respiratory abnormality Coronary artery disease involving [place] coronary artery of [place] heart, angina presence unspecified Essential hypertension Unspecified essential hypertension Mixed hyperlipidemia Type 2 diabetes mellitus with other circulatory complication, with long-term current use of insulin (HCC) Medication therapy changed Coronary artery disease involving [place] coronary artery of [place] heart, angina presence unspecified- Primary Essential hypertension Unspecified essential hypertension Mixed hyperlipidemia Type 2 diabetes mellitus with other circulatory complication, with long-term current use of insulin (HCC) Primary hypertension- Primary Unspecified essential hypertension Hyperlipidemia LDL goal <70 Other and unspecified hyperlipidemia Coronary artery disease involving [place] coronary artery of [place] heart without angina pectoris Atypical chest pain Other chest [facility] Hypercholesterolemia- Primary Pure hypercholesterolemia Coronary artery disease involving [place] coronary artery of [place] heart without angina pectoris Essential hypertension with goal blood pressure less than 130/85 Type 2 diabetes mellitus with other circulatory complications (HCC) Hypercholesterolemia- Primary Pure hypercholesterolemia Coronary artery disease involving [place] coronary artery of [place] heart without angina pectoris Essential hypertension Unspecified essential hypertension Type 2 diabetes mellitus with other circulatory complication Coronary artery disease involving [place] coronary artery of [place] heart, angina presence unspecified- Primary Essential hypertension Unspecified essential hypertension Type 2 diabetes mellitus with other circulatory complication Hypercholesterolemia Pure hypercholesterolemia SOB (shortness of breath) on exertion Shortness of breath Hypercholesterolemia- Primary Pure hypercholesterolemia Coronary artery disease involving [place] coronary artery of [place] heart without angina pectoris Essential hypertension Unspecified essential hypertension Type 2 diabetes mellitus with other circulatory complication, with long-term current use of insulin (HCC) Hypercholesterolemia- Primary Pure hypercholesterolemia Coronary artery disease involving [place] coronary artery of [place] heart without angina pectoris Essential hypertension Unspecified essential hypertension Type 2 diabetes mellitus with other circulatory complication, with long-term current use of insulin (HCC) Coronary artery disease involving [place] coronary artery of [place] heart without angina pectoris Essential hypertension Unspecified essential hypertension Hypercholesterolemia Pure hypercholesterolemia CARRILLO (dyspnea on exertion)- Primary Other dyspnea and respiratory abnormality Coronary artery disease involving [place] coronary artery of [place] heart, angina presence unspecified Essential hypertension Unspecified essential hypertension Mixed hyperlipidemia Type 2 diabetes mellitus with other circulatory complication, with long-term current use of insulin (HCC) Medication therapy changed Coronary artery disease involving [place] coronary artery of [place] heart, angina presence unspecified- Primary Essential hypertension Unspecified essential hypertension Mixed hyperlipidemia Type 2 diabetes mellitus with other circulatory complication, with long-term current use of insulin (HCC) Humeral head fracture, right, closed, initial encounter- Primary [facility] Diagnosis Hypercholesterolemia- Primary Pure hypercholesterolemia Coronary artery disease involving [place] coronary artery of [place] heart without angina pectoris Essential hypertension with goal blood pressure less than 130/85 Type 2 diabetes mellitus with other circulatory complications (HCC) Hypercholesterolemia- Primary Pure hypercholesterolemia Coronary artery disease involving [place] coronary artery of [place] heart without angina pectoris Essential hypertension Unspecified essential hypertension Type 2 diabetes mellitus with other circulatory complication Coronary artery disease involving [place] coronary artery of [place] heart, angina presence unspecified- Primary Essential hypertension Unspecified essential hypertension Type 2 diabetes mellitus with other circulatory complication Hypercholesterolemia Pure hypercholesterolemia SOB (shortness of breath) on exertion Shortness of breath Hypercholesterolemia- Primary Pure hypercholesterolemia Coronary artery disease involving [place] coronary artery of [place] heart without angina pectoris Essential hypertension Unspecified essential hypertension Type 2 diabetes mellitus with other circulatory complication, with long-term current use of insulin (HCC) Hypercholesterolemia- Primary Pure hypercholesterolemia Coronary artery disease involving [place] coronary artery of [place] heart without angina pectoris Essential hypertension Unspecified essential hypertension Type 2 diabetes mellitus with other circulatory complication, with long-term current use of insulin (HCC) Coronary artery disease involving [place] coronary artery of [place] heart without angina pectoris Essential hypertension Unspecified essential hypertension Hypercholesterolemia Pure hypercholesterolemia CARRILLO (dyspnea on exertion)- Primary Other dyspnea and respiratory abnormality Coronary artery disease involving [place] coronary artery of [place] heart, angina presence unspecified Essential hypertension Unspecified essential hypertension Mixed hyperlipidemia Type 2 diabetes mellitus with other circulatory complication, with long-term current use of insulin (HCC) Medication therapy changed Coronary artery disease involving [place] coronary artery of [place] heart, angina presence unspecified- Primary Essential hypertension Unspecified essential hypertension Mixed hyperlipidemia Type 2 diabetes mellitus with other circulatory complication, with long-term current use of insulin (HCC) Humeral head fracture, right, closed, initial encounter- Primary [facility] Diagnosis Hypercholesterolemia- Primary Pure hypercholesterolemia Coronary artery disease involving [place] coronary artery of [place] heart without angina pectoris Essential hypertension with goal blood pressure less than 130/85 Type 2 diabetes mellitus with other circulatory complications (HCC) Hypercholesterolemia- Primary Pure hypercholesterolemia Coronary artery disease involving [place] coronary artery of [place] heart without angina pectoris Essential hypertension Unspecified essential hypertension Type 2 diabetes mellitus with other circulatory complication Coronary artery disease involving [place] coronary artery of [place] heart, angina presence unspecified- Primary Essential hypertension Unspecified essential hypertension Type 2 diabetes mellitus with other circulatory complication Hypercholesterolemia Pure hypercholesterolemia SOB (shortness of breath) on exertion Shortness of breath Hypercholesterolemia- Primary Pure hypercholesterolemia Coronary artery disease involving [place] coronary artery of [place] heart without angina pectoris Essential hypertension Unspecified essential hypertension Type 2 diabetes mellitus with other circulatory complication, with long-term current use of insulin (HCC) Hypercholesterolemia- Primary Pure hypercholesterolemia Coronary artery disease involving [place] coronary artery of [place] heart without angina pectoris Essential hypertension Unspecified essential hypertension Type 2 diabetes mellitus with other circulatory complication, with long-term current use of insulin (HCC) Coronary artery disease involving [place] coronary artery of [place] heart without angina pectoris Essential hypertension Unspecified essential hypertension Hypercholesterolemia Pure hypercholesterolemia CARRILLO (dyspnea on exertion)- Primary Other dyspnea and respiratory abnormality Coronary artery disease involving [place] coronary artery of [place] heart, angina presence unspecified Essential hypertension Unspecified essential hypertension Mixed hyperlipidemia Type 2 diabetes mellitus with other circulatory complication, with long-term current use of insulin (HCC) Medication therapy changed Coronary artery disease involving [place] coronary artery of [place] heart, angina presence unspecified- Primary Essential hypertension Unspecified essential hypertension Mixed hyperlipidemia Type 2 diabetes mellitus with other circulatory complication, with long-term current use of insulin (HCC) Humeral head fracture, right, closed, initial encounter- Primary [facility] Diagnosis Hypercholesterolemia- Primary Pure hypercholesterolemia Coronary artery disease involving [place] coronary artery of [place] heart without angina pectoris Essential hypertension with goal blood pressure less than 130/85 Type 2 diabetes mellitus with other circulatory complications (HCC) Hypercholesterolemia- Primary Pure hypercholesterolemia Coronary artery disease involving [place] coronary artery of [place] heart without angina pectoris Essential hypertension Unspecified essential hypertension Type 2 diabetes mellitus with other circulatory complication Coronary artery disease involving [place] coronary artery of [place] heart, angina presence unspecified- Primary Essential hypertension Unspecified essential hypertension Type 2 diabetes mellitus with other circulatory complication Hypercholesterolemia Pure hypercholesterolemia SOB (shortness of breath) on exertion Shortness of breath Hypercholesterolemia- Primary Pure hypercholesterolemia Coronary artery disease involving [place] coronary artery of [place] heart without angina pectoris Essential hypertension Unspecified essential hypertension Type 2 diabetes mellitus with other circulatory complication, with long-term current use of insulin (HCC) Hypercholesterolemia- Primary Pure hypercholesterolemia Coronary artery disease involving [place] coronary artery of [place] heart without angina pectoris Essential hypertension Unspecified essential hypertension Type 2 diabetes mellitus with other circulatory complication, with long-term current use of insulin (HCC) Coronary artery disease involving [place] coronary artery of [place] heart without angina pectoris Essential hypertension Unspecified essential hypertension Hypercholesterolemia Pure hypercholesterolemia CARRILLO (dyspnea on exertion)- Primary Other dyspnea and respiratory abnormality Coronary artery disease involving lower [place] coronary artery of lower [place] heart, angina presence unspecified Essential hypertension Unspecified essential hypertension Mixed hyperlipidemia Type 2 diabetes mellitus with other circulatory complication, with long-term current use of insulin ([facility]) Medication therapy changed Coronary artery disease involving lower [place] coronary artery of lower [place] heart, angina presence unspecified- Primary Essential hypertension Unspecified essential hypertension Mixed hyperlipidemia Type 2 diabetes mellitus with other circulatory complication, with long-term current use of insulin ([facility]) Pain- Primary Generalized pain [facility] Diagnosis Closed fracture of distal end of right femur, unspecified fracture morphology, initial encounter ([facility])- Primary Closed fracture of distal end of right femur, unspecified fracture morphology, initial encounter ([facility]) Osteoporosis, unspecified osteoporosis type, unspecified pathological fracture presence [facility] Diagnosis Closed fracture of distal end of right femur, unspecified fracture morphology, initial encounter ([facility])- [facility] Diagnosis Closed fracture of distal end of right femur, unspecified fracture morphology, initial encounter ([facility])- Primary [facility] Diagnosis Hypercholesterolemia- Primary Pure hypercholesterolemia Coronary artery disease involving lower [place] coronary artery of lower [place] heart without angina pectoris Essential hypertension with goal blood pressure less than 130/85 Type 2 diabetes mellitus with other circulatory complications ([facility]) Hypercholesterolemia- Primary Pure hypercholesterolemia Coronary artery disease involving lower [place] coronary artery of lower [place] heart without angina pectoris Essential hypertension Unspecified essential hypertension Type 2 diabetes mellitus with other circulatory complication Coronary artery disease involving lower [place] coronary artery of lower [place] heart, angina presence unspecified- Primary Essential hypertension Unspecified essential hypertension Type 2 diabetes mellitus with other circulatory complication Hypercholesterolemia Pure hypercholesterolemia SOB (shortness of breath) on exertion Shortness of breath Hypercholesterolemia- Primary Pure hypercholesterolemia Coronary artery disease involving lower [place] coronary artery of lower [place] heart without angina pectoris Essential hypertension Unspecified essential hypertension Type 2 diabetes mellitus with other circulatory complication, with long-term current use of insulin ([facility]) Hypercholesterolemia- Primary Pure hypercholesterolemia Coronary artery disease involving lower [place] coronary artery of lower [place] heart without angina pectoris Essential hypertension Unspecified essential hypertension Type 2 diabetes mellitus with other circulatory complication, with long-term current use of insulin (HCC) Coronary artery disease involving lower [place] coronary artery of lower [place] heart without angina pectoris Essential hypertension Unspecified essential hypertension Hypercholesterolemia Pure hypercholesterolemia CARRILLO (dyspnea on exertion)- Primary Other dyspnea and respiratory abnormality Coronary artery disease involving lower [place] coronary artery of lower [place] heart, angina presence unspecified Essential hypertension Unspecified essential hypertension Mixed hyperlipidemia Type 2 diabetes mellitus with other circulatory complication, with long-term current use of insulin ([facility]) Medication therapy changed Coronary artery disease involving lower [place] coronary artery of lower [place] heart, angina presence unspecified- Primary Essential hypertension Unspecified essential hypertension Mixed hyperlipidemia Type 2 diabetes mellitus with other circulatory complication, with long-term current use of insulin ([facility]) Primary hypertension- Primary Unspecified essential hypertension Hyperlipidemia LDL goal <70 Other and unspecified hyperlipidemia Coronary artery disease involving lower [place] coronary artery of lower [place] heart without angina pectoris Atypical chest pain Other chest pain [facility] Diagnosis Closed fracture of distal end of right femur, unspecified fracture morphology, initial encounter ([facility])- [facility] Diagnosis Closed fracture of distal end of right femur, unspecified fracture morphology, initial encounter ([facility])- Primary Right arm pain Pain in soft tissues of limb Ulnar neuritis, right [facility] Diagnosis Hypercholesterolemia- Primary Pure hypercholesterolemia Coronary artery disease involving lower [place] coronary artery of lower [place] heart without angina pectoris Essential hypertension with goal blood pressure less than 130/85 Type 2 diabetes mellitus with other circulatory complications (HCC) Hypercholesterolemia- Primary Pure hypercholesterolemia Coronary artery disease involving lower [place] coronary artery of lower [place] heart without angina pectoris Essential hypertension Unspecified essential hypertension Type 2 diabetes mellitus with other circulatory complication Coronary artery disease involving lower [place] coronary artery of lower [place] heart, angina presence unspecified- Primary Essential hypertension Unspecified essential hypertension Type 2 diabetes mellitus with other circulatory complication Hypercholesterolemia Pure hypercholesterolemia SOB (shortness of breath) on exertion Shortness of breath Hypercholesterolemia- Primary Pure hypercholesterolemia Coronary artery disease involving lower [place] coronary artery of lower [place] heart without angina pectoris Essential hypertension Unspecified essential hypertension Type 2 diabetes mellitus with other circulatory complication, with long-term current use of insulin (HCC) Hypercholesterolemia- Primary Pure hypercholesterolemia Coronary artery disease involving lower [place] coronary artery of lower [place] heart without angina pectoris Essential hypertension Unspecified essential hypertension Type 2 diabetes mellitus with other circulatory complication, with long-term current use of insulin (HCC) Coronary artery disease involving lower [place] coronary artery of lower [place] heart without angina pectoris Essential hypertension Unspecified essential hypertension Hypercholesterolemia Pure hypercholesterolemia CARRILLO (dyspnea on exertion)- Primary Other dyspnea and respiratory abnormality Coronary artery disease involving lower [place] coronary artery of lower [place] heart, angina presence unspecified Essential hypertension Unspecified essential hypertension Mixed hyperlipidemia Type 2 diabetes mellitus with other circulatory complication, with long-term current use of insulin (HCC) Medication therapy changed Coronary artery disease involving lower [place] coronary artery of lower [place] heart, angina presence unspecified- Primary Essential hypertension Unspecified essential hypertension Mixed hyperlipidemia Type 2 diabetes mellitus with other circulatory complication, with long-term current use of insulin (HCC) Coronary artery disease involving lower [place] coronary artery of lower [place] heart without angina pectoris- Primary [facility] Visit Details Visit Type -OT AKASH scott Discipline -Occupational Therapy Problems Problem Start Date Status Goals Interventions Mobility Disciplines: Occupational Therapy 04/02/2024 Resolved on 04/12/2024 1 goal linked to scheduled/documented intervention 1 goal intervention scheduled/documented in this visit Assess and Instruct Home Visit Disciplines: Occupational Therapy 04/02/2024 Resolved on 04/12/2024 3 goals linked to scheduled/documented interventions 3 goal interventions scheduled/documented in this visit Goals Goal Associated Problem Outcome Goal Met? Visit Notes Mobility Mobility Completed Yes goals met. Pt needs occasional help with sling donning/doffing for exercises and will need to get a heating pad. Pt is holding light objects in R hand for L hand to manipulate. She has improved her steadiness in walking and balance through house and pain level at R arm is slowly improving. She is sleeping fairly well in lounge chair and bed. Pain Assess and Instruct Home Visit Completed Yes Medications Assess and Instruct Home Visit Completed Yes Home Care Plan Assess and Instruct Home Visit Completed Yes Interventions Intervention Associated Problem/Goal Status Variance Visit Notes Instruct Mobility Problem:Mobility Goal:Mobility Completed Reviewed two sets of dangling exercises with R arm, set-up, pain management, bed positioning, car positioning for comfort, analgesic use. Pain Management Problem:Assess and Instruct Home Visit Goal:Pain Completed Patient reports: good control of pain level , bruising is slowly resolving Clinician taught: patient Clinician instructed on: review of heat and cold applications before and after dangling exercises Patient/caregiver is able to teach back 100% of instruction. Falls Problem:Assess and Instruct Home Visit Goal:Home Care Plan Completed no falls reported Safety Problem:Assess and Instruct Home Visit Goal:Home Care Plan Completed Safety is maintained within home, pt is careful to use cane outside of home. [facility] Actions Homebound Status Criteria 1: Assistive Device(s): None Needs assistance of at least 1 to leave home, help getting into car Criteria 2: Patient confined to home due to poor endurance related to AHD, anemia, CKD Type of Home: 1-story house/ trailer documented in this encounter [facility] Assessments Diagnosis Hypercholesterolemia - Prima ry Pure hypercholesterolemia Coronary artery disease invo lving lower [place] coronary artery of lower [place] heart without angina pectoris Essential hypertension Unspecified essential hypertension Type 2 diabetes mellitus wit h other circulatory complication, with long-term current use of insulin ([facility]) Diagnosis Left hip pain - Primary Pain in joint, pelvic region and thigh 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 Diagnosis Chest pain, unspecified type Coronary artery disease, angina presence unspecified, unspecified vessel or lesion type, unspecified whether lower [place] or transplanted heart Diagnosis Poorly controlled type 2 diabetes mellitus (HCC)- Primary Mixed hyperlipidemia Essential hypertension Unspecified essential hypertension Dyspnea on exertion Other dyspnea and respiratory abnormality Diagnosis Dyspnea on exertion Other dyspnea and respiratory abnormality Diagnosis Coronary artery disease involving lower [place] coronary artery of lower [place] heart without angina pectoris Essential hypertension Unspecified essential hypertension Hypercholesterolemia Pure hypercholesterolemia Diagnosis Uncontrolled type 2 diabetes mellitus with hyperglycemia (HCC)- Primary Mixed hyperlipidemia Essential hypertension Unspecified essential hypertension Diagnosis Cyst of perineum of female Diagnosis Cyst of perineum of female Diagnosis Essential hypertension Unspecified essential hypertension Uncontrolled type 2 diabetes mellitus with hyperglycemia (HCC) Mixed hyperlipidemia Diagnosis Type 2 diabetes mellitus with other circulatory complication, with long-term current use of insulin (HCC) Hypothyroidism, unspecified type Essential hypertension Unspecified essential hypertension Mixed hyperlipidemia Diagnosis Type 2 diabetes mellitus with other circulatory complication, with long-term current use of insulin (HCC)- Primary Diagnosis Coronary artery disease involving lower [place] coronary artery of lower [place] heart, angina presence unspecified- Primary Essential hypertension Unspecified essential hypertension Mixed hyperlipidemia Type 2 diabetes mellitus with other circulatory complication, with long-term current use of insulin (HCC) Diagnosis CARRILLO (dyspnea on exertion) Other dyspnea and respiratory abnormality Diagnosis CARRILLO (dyspnea on exertion)- Primary Other dyspnea and respiratory abnormality Coronary artery disease involving lower [place] coronary artery of lower [place] heart, angina presence unspecified Essential hypertension Unspecified essential hypertension Mixed hyperlipidemia Type 2 diabetes mellitus with other circulatory complication, with long-term current use of insulin ([facility]CC) Medication therapy changed Diagnosis Hypercholesterolemia- Primary Pure hypercholesterolemia Coronary artery disease involving lower [place] coronary artery of lower [place] heart without angina pectoris Essential hypertension Unspecified essential hypertension Type 2 diabetes mellitus with other circulatory complication, with long-term current use of insulin (HCC) Summary Purpose Family History No Family History Records Found Relationship Condition Age at Onset Recorded Date/T criselda father Malignant neoplasm Unknown mother Diabetes mellitus Unknown son Calculus of kidney Unknown Relationship Condition Age at Onset Recorded Date/T criselda father Malignant neoplasm of colon Unknown mother Diabetes mellitus Unknown Myocardial infarction Unknown son Calculus of kidney Unknown Diabetes mellitus Unknown Hyperlipidemia Unknown sister Diabetes mellitus Unknown brother Diabetes mellitus Unknown Cardiac disease Unknown sister Cardiac disease Unknown Chronic obstructive pulmonary disease Unk nown Advance Directives No Advanced Directives Records FoundDocuments on File Type Date Recorded Patient Carrot Buncher Expl anation Advance Directives and Living Will Documents on File Type Date Recorded Patient Carrot Buncher Expl anation Advance Directives and Livin g Will 12/18/2018 9:55 AM Documents on File Type Date Recorded Patient Carrot Buncher Expl anation Advance Directives and Livin g Will 12/18/2018 9:55 AM Documents on File Type Date Recorded Patient Carrot Buncher Expl anation Advance Directives and Livin g Will 01/03/2020 8:28 AM Documents on File Type Date Recorded Patient Carrot Buncher Expl anation Advance Directives and Livin g Will 06/27/2020 10:00 AM Documents on File Type Date Recorded Patient Carrot Buncher Expl anation Advance Directives and Livin g Will 06/27/2020 10:00 AM Documents on File Type Date Recorded Patient Carrot Buncher Expl anation Advance Directives and Livin g Will 06/16/2020 8:28 AM Documents on File Type Date Recorded Patient Carrot Buncher Expl anation Advance Directives and Livin g Will 03/09/2021 1:16 PM Documents on File Type Date Recorded Patient Carrot Buncher Expl anation Advance Directives and Livin g Will 05/28/2021 7:28 AM Documents on File Type Date Recorded Patient Carrot Buncher Expl anation Advance Directives and Livin g Will 05/28/2021 7:28 AM Documents on File Type Date Recorded Patient Carrot Buncher Expl anation Advance Directive(s) 02/24/2017 7:22 AM Advance Directive(s) 02/07/2017 8:59 AM Advance Directive(s) 06/24/2016 4:10 PM Advance Directive(s) 06/13/2016 4:31 PM Date Activated Date Inactivated Comments 03/24/2024 8:11 PM 03/25/2024 4:29 PM Date Activated Date Inactivated Comments 03/30/2024 1:49 PM Code Status re flects patient's informed choice. Date Activated Date Inactivated Comments 03/24/2024 8:11 PM 03/25/2024 4:29 PM Date Activated Date Inactivated Comments 03/30/2024 1:49 PM Code Status re flects patient's informed choice. Date Activated Date Inactivated Comments 03/24/2024 8:11 PM 03/25/2024 4:29 PM Date Activated Date Inactivated Comments 06/17/2024 5:20 AM 06/21/2024 5:25 PM Healthcare Agents on File Name Relationship Healthcare Agent Relationshi p Communication Benedict Morse Health Care Agent [id number] [phone] (Mobile) Date Activated Date Inactivated Comments 06/17/2024 5:20 AM 06/21/2024 5:25 PM Healthcare Agents on File Name Relationship Healthcare Agent Relationshi p Communication Benedict Morse Health Care Agent [id number] (Mobile) Healthcare Agents on File Name Relationship Healthcare Agent Relationshi p Communication Benedict Morse Health Care Agent [id number] (Mobile) Healthcare Agents on File Name Relationship Healthcare Agent Relationshi p Communication Benedict Morse Health Care Agent [id number] [phone] (Mobile) Date Activated Date Inactivated Comments 03/30/2024 1:49 PM 12/06/2024 12:17 PM Code Status reflects patient's informed choice. Reason for Referral Status Reason Specialty Diagnoses / Procedures Referre d By Contact Referred To Contact Closed Cardiology Diagnoses Chest pain, unspecified type Coronary artery disease, angina presence unspecified, unspecified vessel or lesion type, unspecified whether lower [place] or transplanted heart Procedures Stress test only, exercise Ryan Gomez MD [address] [place] [address] Status Reason Specialty Diagnoses / Procedures Referred By Contact Referred To Contact Authorized Cardiology Diagnoses Dyspnea on exertion Procedures Echocardiogram complete Denisse Richardson MD [address] [address] Status Reason Specialty Diagnoses / Procedures Referre d By Contact Referred To Contact Closed Cardiology Diagnoses CARRILLO (dyspnea on exertion) Procedures Echocardiogram complete Gonzalez Saunders MD [address] [place] [address] Status Reason Specialty Diagnoses / Procedures Referred By Contact Referred To Contact Authorized Cardiology Diagnoses CARRILLO (dyspnea on exertion) Procedures Echocardiogram complete Gonzalez Saunders MD [address] [place] [address] Specialty Diagnoses / Procedures Referred By Contac t Referred To Contact Radiology Diagnoses SOB (shortness of breath) on exertion Procedures NM Myocardial Perfusion Multiple SPECT Gonzalez Saunders MD [address] [place], [place] [id number] Referral ID Status Reason Start Date Expiration Date V isits Requested Visits Authorized [id number] Authorized 03/09/2021 03/09/2022 4 4 Specialty Diagnoses / Procedures Referred By Contac t Referred To Contact Cardiology Diagnoses Near syncope Procedures Cardiac event monitor Gonzalez Saunders MD [address] [place] [address] Referral ID Status Reason Start Date Expiration Date V isits Requested Visits Authorized [id number] Pending Review 04/05/2022 04/05/2023 1 1 History of Present Illness * Denisse Richardson MD - 12/15/2018 11:12 AM EDT Patient ID: Carolyn Cintron is a 73 y.o. female 1945 Subjective: Carolyn Cintron presents for follow-up of Type 2 diabetes Patient has had diabetes for 32 years. Diagnosed in 1986 Patient has taken Insulin for several years Allergies Allergen Reactions Atorvastatin Other (See Comments) Exenatide Other (See Comments) Other reaction(s): Intolerance pancreatitis, though managed as outpatient pancreatitis, though managed as outpatient Lovastatin Other (See Comments) Sulfa (Sulfonamide Antibiotics) Unknown When patient had surgery, surgeon stated she had an allergic reaction to sulfa. No further information available from patient. Current Outpatient Medications Medication Sig Dispense Refill allopurinol (ZYLOPRIM) 300 MG tablet aspirin 81 MG EC tablet Take 81 mg by mouth daily. cholecalciferol, vitamin D3, (VITAMIN D3) 1,000 unit capsule Take 1,000 Units by mouth daily . cyanocobalamin (vitamin B-12) 1000 MCG tablet Take 1,000 mcg by mouth daily. fish oil-omega-3 fatty acids 300-1,000 mg capsule Take 2 g by mouth daily. fluticasone (FLONASE) 50 mcg/actuation nasal spray Instill 1 spray into each nostril daily . furosemide (LASIX) 20 MG tablet Take 20 mg by mouth daily as needed . insulin glargine (LANTUS) 100 unit/mL injection Inject under the skin nightly. insulin NPH-insulin regular 70/30 (NovoLIN 70/30 U-100 Insulin) 100 unit/mL (70- 30) injection threetimes daily. 80 units at breakfast 50 units at lunch 60 units at dinner KLOR-CON M20 20 mEq tablet Take 20 mEq by mouth daily . levothyroxine (SYNTHROID, LEVOTHROID) 100 MCG tablet Take 125 mcg by mouth daily . magnesium oxide (MAG-OX) 400 mg tablet Take 400 mg by mouth daily. metFORMIN (GLUCOPHAGE) 1000 MG tablet Take 1,000 mg by mouth 2 (two) times a day with meals . metoprolol tartrate (LOPRESSOR) 50 MG tablet Take 50 mg by mouth 2 (two) times a day . montelukast (SINGULAIR) 10 mg tablet Take 10 mg by mouth daily . pantoprazole (PROTONIX) 40 MG tablet Take 40 mg by mouth daily. rosuvastatin (CRESTOR) 20 MG tablet Take 20 mg by mouth daily. therapeutic multivitamin (THERAGRAN) tablet Take 1 tablet by mouth daily. traZODone (DESYREL) 50 MG tablet Take by mouth nightly as needed for sleep. triamterene-hydrochlorothiazide (MAXZIDE) 75-50 mg per tablet Take 1 (one) tablet by mouth daily . 90 tablet 3 fenofibrate micronized (LOFIBRA) 67 MG capsule Take 1 (one) capsule (67 mg total) by mouth daily Give with food . 30 capsule 11 NOVOLIN N NPH U-100 INSULIN 100 unit/mL injection Inject 35 units q HS (Needs Reli-on brand) . 20 mL 12 NOVOLIN R REGULAR U-100 INSULN 100 unit/mL injection Use as directed TID (approx 80 units/day) Needs Reli-on brand . 30 mL 12 No current facility-administered medications for this visit. Past Medical History: Diagnosis Date Asthma Diabetes (HCC) Disease of thyroid gland Gout High cholesterol 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 Past Surgical History: Procedure Laterality Date BACK SURGERY 3 back surgeries CHOLECYSTECTOMY HAND SURGERY Bilateral CTR KNEE SURGERY Left TKR KNEE SURGERY Right TKR Social History Socioeconomic History Marital status: Spouse name: Not on file Number of children: Not on file Years of education: Not on file Highest education level: Not on file Occupational History Not on file Social Needs Financial resource strain: Not on file Food insecurity: Worry: Not on file Inability: Not on file Transportation needs: Medical: Not on file Non-medical: Not on file Tobacco Use Smoking status: Never Smoker Smokeless tobacco: Never Used Substance and Sexual Activity Alcohol use: No Alcohol/week: 0.0 standard drinks Drug use: No Sexual activity: Not on file Lifestyle Physical activity: Days per week: Not on file Minutes per session: Not on file Stress: Not on file Relationships Social connections: Talks on phone: Not on file Gets together: Not on file Attends islam service: Not on file Active member of club or organization: Not on file Attends meetings of clubs or organizations: Not on file Relationship status: Not on file Other Topics Concern Not on file Social History Narrative Not on file Review of Systems: Review of Systems Constitutional: Negative for appetite change, fatigue and unexpected weight change. HENT: Negative for trouble swallowing. Eyes: Negative for visual disturbance. Respiratory: Positive for shortness of breath. Negative for cough, chest tightness and wheezing. Cardiovascular: Negative for chest pain, palpitations and leg swelling. Gastrointestinal: Negative for abdominal pain, constipation, diarrhea, nausea and vomiting. Endocrine: Negative for polydipsia, polyphagia and polyuria. Genitourinary: Negative for dysuria and frequency. Musculoskeletal: Negative for arthralgias, gait problem and myalgias. Skin: Negative for rash. Neurological: Negative for weakness, numbness and headaches. Psychiatric/Behavioral: Negative for sleep disturbance. The following portions of the patient's history were reviewed and updated as appropriate: allergies, current medications, past family history, past medical history, past social history, past surgicalhistory and problem list. Objective: BP 136/76 Pulse 68 Ht 5' 3 Wt 95.6 kg (210 lb 12.8 oz) BMI 37.34 kg/m Wt Readings from Last 3 Encounters: 12/15/18 95.6 kg (210 lb 12.8 oz) 08/10/18 94.8 kg (209 lb) 10/10/17 92 kg (202 lb 14.4 oz) Physical Exam: Physical Exam General: alert, appears stated age and cooperative Eyes: conjunctivae/corneas clear. PERRL, EOM's intact. Neck: no adenopathy, supple, symmetrical, trachea midline. Thyroid: No thyromegaly appreciated Lung: clear to auscultation bilaterally Heart: regular rate and rhythm, S1, S2 normal, no murmur, click, rub or gallop Extremities: extremities normal, atraumatic, no cyanosis or edema Feet: Dry skin, Bilateral Feet: warm, good capillary refill and normal DP. Monofilament exam Normal, bilateral lower extremities. Neuro: normal without focal findings, mental status, speech normal, alert and oriented x3 and PHILIPPE Lab Review Lab Results Component Value Date HGBA1C 7.1 (H) 08/31/2018 Creatinine (mg/dL) Date Value 08/31/2018 1.08 No results found for: CHOL, TRIG, HDL, LDLCALC, LDL Lab Results Component Value Date TSH 0.94 08/31/2018 Lab Results Component Value Date WBC 4.9 08/31/2018 HGB 12.2 08/31/2018 HCT 36.7 08/31/2018 PLT 186 08/31/2018 Date: 12/14/2018 Hemoglobin A1c 7.6% Creatinine 1.0, sodium 136, potassium 4.1, estimated GFR 54.3 AST 37, ALT 38 Total cholesterol 153, triglyceride 862 Uric acid 5.5, magnesium 1.4 TSH 2.50, 25-hydroxy vitamin D 30.40 Iron 59, ferritin 15.0, vitamin B12 760 WBC 5.3, hemoglobin 11.4, hematocrit 34.3, platelet count 186,000 Assessment/Plan: Dx: SNOMED CT(R) 1. Poorly controlled type 2 diabetes mellitus (HCC) TYPE 2 DIABETES MELLITUS Ambulatory referral toEndocrinology Hemoglobin A1c Comprehensive Metabolic Panel Lipid Panel External Lab Microalbumin/Creatinine 2. Mixed hyperlipidemia MIXED HYPERLIPIDEMIA 3. Essential hypertension ESSENTIAL HYPERTENSION triamterene-hydrochlorothiazide (MAXZIDE) 75-50 mgper tablet 4. Dyspnea on exertion DYSPNEA ON EXERTION Echocardiogram complete Type 2 diabetes, under good control Patient is currently managed with: Currently taking: Metformin 1000 mg twice daily Novolin 70/30: 85 units at breakfast; 65 units at supper and 50 units at lunch Current Hemoglobin A1C= 7.6% on 12/14/18 Lab Results Component Value Date HGBA1C 7.1 (H) 08/31/2018 Weight trend: is stable Current diet: carb controlled Current exercise: gardening Current monitoring regimen: home blood tests - 6-8 times daily Home blood sugar records: Fasting B-229 Pre-lunch B-234 Pre-supper B-167 Bedtime B-241 Any episodes of hypoglycemia? yes - occasional NOTES: Patient has had diabetes for 32 years. She most recently had been followed by JOSE Mann at the [facility], with transfer of care to this office due to JOSE's resigning from her practice there. She had been on Lantus 120 units nightly and approximately 25 units of Humalog before each meal. However approximately 1-2 months ago, she was unable to afford her insulin due to entering into the [facility] for her medication plan. Therefore, she was switched to Novolin Reli-0n 70/30 insulin, and currently is taking 3 times daily. She has had elevated blood glucoses in the morning and at at bedtime, but better blood sugars during the day. She is willing to resume 4 times daily insulin with R and N insulin which will allow targeting of her at bedtime and a.m. blood glucoses better, with reduced risk of hypoglycemia. PLAN: See below. Change to R TID and N at HS when out of 70/30 insulin. 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 no Peripheral Neuropathy: Negative Denies symptoms associated with neuropathy (numbness and/or tingling) Autonomic Neuropathy: Negative Hypoglycemia unawareness. Senses low BG at 100 mg/dl. Other: Hyperlipidemia: Positive Currently taking: rosuvastatin (Crestor) and fish oil. LFT's WNL No results found for: AST, ALT Lab Results Component Value Date EXTCHOL 131 08/31/2018 EXTTRIG 608 (H) 08/31/2018 EXTHDL 23 (L) 08/31/2018 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: Positive. Currently taking: furosemide (Lasix), hydrochlorothiazide (HCTZ), metoprolol (Lopressor, Toprol) and triamterene BP: 136/76 Cardiac: Positive. Experiencing chest pain Yes--recently improved . Experiencing shortness of breath Yes History of ETT 10/06/18--low exercise tolerance, inadequate for diagnosis and Cardiac [id number] moderate disease Patient was evaluated by Dr. Saunders in August,; at that time she was not symptomatic. Subsequently, she developed chest tightness and an ETT was performed. The ETT was nondiagnostic due to inadequate exercise achieved. Today she reports that her chest tightness has improved, but she has been developing increasing shortness of breath. She has difficulty walking up a hill from her garden without stopping long term. She notes a decreased exercise tolerance with housekeeping chores; she needs to stop frequently to rest and catch her breath. This is a change in her exercise tolerance. I reviewed her case briefly with Dr. Childs who recommends recheck echocardiogram and follow-up with cardiology; she may need repeat cardiac catheterization. Advised her to be careful with her vacation to [place] due to high altitude. Follows routinely with: [facility] Vascular: Negative History of Edema left lower leg, chronic, mild. 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 PLAN: CPM. Other: Plan: 1. Rx changes: When she runs out of 70/30, she will try QID with R and N Regular Insulin: 26 units at breakfast; 24 units at lunch; 24 units at dinner NPH insulin: 35 units at bedtime Metformin 1000 mg twice daily 2. Education: Reviewed ABCs of diabetes management (respective goals in parentheses): A1C (7.0-8.0), blood pressure (<130/80), and cholesterol (LDL <100). 3. Compliance at present is estimated to be good. Efforts to improve compliance (if necessary) willbe directed at dietary modifications: portion control and regular blood sugar monitorin times daily. 4. Follow up: 3 months 5. Record blood sugar readings as instructed. Call if BG consistently <70 or >250. [phone] Patient has been checking blood glucoses 4 times daily for the past 90 days. Patient needs to continue checking blood glucoses 4 times daily. Blood glucose readings are used to adjust medication or insulin doses for meals, monitor dietary compliance, and adjust for high or low blood glucoses by patient on a daily basis. Blood glucose readings are reviewed at office visits for adjustment in medication regimen and assistance with dietary management, and other self- management issues including exercise, etc. Prognosis: Good. Duration of need for diabetes testing equipment: Permanent #150 strips/month prescribed. 6. Bring blood sugar meter to follow up appointment. Orders Placed This Encounter Procedures Hemoglobin A1c Comprehensive Metabolic Panel Lipid Panel External Lab Microalbumin/Creatinine Echocardiogram complete Kassi CHAPMAN documented in this encounter* Darcy Sharpe, [facility] - 01/06/2019 10:04 AM EDT Subjective: Ryan Gomez MD Carolyn Cintron is a 73 y.o. female seen in the office today for Follow-up (CARRILLO/review echo - patientdenies any concerns today) . HPI: She was seen at [facility] [place] office on January 06, 2019. She is a 73-year-old female with history of hypertension, moderate coronary artery disease, diabetes mellitus, hypothyroidism, gout, hyperlipidemia and asthma. She had a left heart cath in 2008 at that time she had moderate disease in the mid circumflex and RCA. FFR across both areas were negative for physiological significance. 2017 echo showed normal EF. She did have a SPECT in 2017 which was negative for ischemia. She was seen in the emergency room August 2018 for chest pain. Enzymes and EKG were negative but she was ordered for a nuclear perfusionpost discharge. Insurance did not agree to the nuclear and she had a standard stress test. She had a standard treadmill stress test in September 2018 but she was unable to exercise due to fatigue and dyspnea. No diagnostic EKG changes at submaximal workload. Echocardiogram showed normal ejection fraction 65 to 70% and no significant valvular disease. She has been on vacation out in [place] doing some walking and climbing without provocation of symptoms. We reviewed her standard stress test and echocardiogram. At this time we will continue risk factor reduction with diet and exercise Histories: Past Medical History: Diagnosis Date Asthma Diabetes (HCC) Disease of thyroid gland Gout High cholesterol 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 Past Surgical History: Procedure Laterality Date BACK SURGERY 3 back surgeries CHOLECYSTECTOMY HAND SURGERY Bilateral CTR KNEE SURGERY Left TKR KNEE SURGERY Right TKR Family History Problem Relation Age of Onset Diabetes Mother Heart disease Mother Cancer Father Diabetes Sister Heart disease Sister Diabetes Brother Diabetes Son Diabetes Brother Heart disease Brother Diabetes Sister Heart disease Sister Diabetes Sister Social History Tobacco Use Smoking status: Never Smoker Smokeless tobacco: Never Used Substance Use Topics Alcohol use: No Drug use: No Patient's Medications New Prescriptions No medications on file Previous Medications ALLOPURINOL (ZYLOPRIM) 300 MG TABLET ASPIRIN 81 MG EC TABLET Take 81 mg by mouth daily. CHOLECALCIFEROL, VITAMIN D3, (VITAMIN D3) 1,000 UNIT CAPSULE Take 1,000 Units by mouth daily . CYANOCOBALAMIN (VITAMIN B-12) 1000 MCG TABLET Take 1,000 mcg by mouth daily. FENOFIBRATE MICRONIZED (LOFIBRA) 67 MG CAPSULE Take 1 (one) capsule (67 mg total) by mouth daily Give with food . FISH OIL-OMEGA-3 FATTY ACIDS 300-1,000 MG CAPSULE Take 2 g by mouth daily. FLUTICASONE (FLONASE) 50 MCG/ACTUATION NASAL SPRAY Instill 1 spray into each nostril daily . FUROSEMIDE (LASIX) 20 MG TABLET Take 20 mg by mouth daily as needed . INSULIN NPH-INSULIN REGULAR 70/30 (NOVOLIN 70/30 U-100 INSULIN) 100 UNIT/ML (70- 30) INJECTION threetimes daily. 80 units at breakfast 50 units at lunch 60 units at dinner KLOR-CON M20 20 MEQ TABLET Take 20 mEq by mouth daily . LEVOTHYROXINE (SYNTHROID, LEVOTHROID) 100 MCG TABLET Take 125 mcg by mouth daily . MAGNESIUM OXIDE (MAG-OX) 400 MG TABLET Take 400 mg by mouth daily. METFORMIN (GLUCOPHAGE) 1000 MG TABLET Take 1,000 mg by mouth 2 (two) times a day with meals . METOPROLOL TARTRATE (LOPRESSOR) 50 MG TABLET Take 50 mg by mouth 2 (two) times a day . MONTELUKAST (SINGULAIR) 10 MG TABLET Take 10 mg by mouth daily . NOVOLIN N NPH U-100 INSULIN 100 UNIT/ML INJECTION Inject 35 units q HS (Needs Reli-on brand) . NOVOLIN R REGULAR U-100 INSULN 100 UNIT/ML INJECTION Use as directed TID (approx 80 units/day) Needs Reli-on brand . PANTOPRAZOLE (PROTONIX) 40 MG TABLET Take 40 mg by mouth daily. ROSUVASTATIN (CRESTOR) 20 MG TABLET Take 20 mg by mouth daily. THERAPEUTIC MULTIVITAMIN (THERAGRAN) TABLET Take 1 tablet by mouth daily. TRAZODONE (DESYREL) 50 MG TABLET Take by mouth nightly as needed for sleep. TRIAMTERENE-HYDROCHLOROTHIAZIDE (MAXZIDE) 75-50 MG PER TABLET Take 1 (one) tablet by mouth daily . Modified Medications No medications on file Discontinued Medications INSULIN GLARGINE (LANTUS) 100 UNIT/ML INJECTION Inject under the skin nightly. Allergies Allergen Reactions Atorvastatin Other (See Comments) Exenatide Other (See Comments) Other reaction(s): Intolerance pancreatitis, though managed as outpatient pancreatitis, though managed as outpatient Lovastatin Other (See Comments) Sulfa (Sulfonamide Antibiotics) Unknown When patient had surgery, surgeon stated she had an allergic reaction to sulfa. No further information available from patient. Review of Systems Constitution: Negative for decreased appetite, malaise/fatigue and weight gain. HENT: Negative for hearing loss. Eyes: Negative for blurred vision and visual disturbance. Cardiovascular: Negative for chest pain, claudication, dyspnea on exertion, irregular heartbeat, leg swelling, near-syncope, orthopnea, palpitations, paroxysmal nocturnal dyspnea and syncope. Respiratory: Negative for cough, shortness of breath, sleep disturbances due to breathing, snoring and wheezing. Endocrine: Negative for cold intolerance and heat intolerance. Hematologic/Lymphatic: Negative for bleeding problem. Does not bruise/bleed easily. Skin: Negative for flushing and rash. Musculoskeletal: Negative for back pain, falls and myalgias. Gastrointestinal: Negative for abdominal pain, change in bowel habit and heartburn. Genitourinary: Negative for frequency and hematuria. Neurological: Negative for disturbances in coordination, dizziness, headaches, light-headedness, paresthesias and weakness. Psychiatric/Behavioral: Negative for altered mental status and depression. Allergic/Immunologic: Negative for environmental allergies and persistent infections. Objective: Physical Exam Constitutional: She is oriented to person, place, and time. She appears well- developed and well-nourished. No distress. HENT: Head: Normocephalic and atraumatic. Eyes: Pupils are equal, round, and reactive to light. Conjunctivae are normal. Right eye exhibits no discharge. Left eye exhibits no discharge. Neck: Normal range of motion. Neck supple. No hepatojugular reflux and no JVD present. Carotid bruit is not present. No thyromegaly present. Cardiovascular: Normal rate, regular rhythm, S1 normal, S2 normal, normal heart sounds, intact distal pulses and normal pulses. PMI is not displaced. Exam reveals no gallop. No murmur heard. Pulmonary/Chest: Effort normal and breath sounds normal. No respiratory distress. She has no wheezes. She has no rales. Abdominal: Soft. Bowel sounds are normal. Musculoskeletal: Normal range of motion. She exhibits no edema. Neurological: She is alert and oriented to person, place, and time. Skin: Skin is warm and dry. She is not diaphoretic. Psychiatric: She has a normal mood and affect. Her behavior is normal. Vitals: Vitals: 01/06/19 1004 BP: 113/66 BP Location: Left arm Patient Position: Sitting Pulse: 64 SpO2: 94% Weight: 92.1 kg (203 lb) Height: 5' 3 Lab Review: Hospital Outpatient Visit on 10/06/2018 Component Date Value Target HR 10/06/2018 126 Baseline HR 10/06/2018 65 Baseline BP 10/06/2018 122/52 Post peak HR 10/06/2018 89 Percent of predicted max* 10/06/2018 60 Post peak BP 10/06/2018 164/58 Exercise duration (min) 10/06/2018 2 Exercise duration (sec) 10/06/2018 35 Estimated workload 10/06/2018 4.6 Angina Index 10/06/2018 0 Assessment & Plan: CAD (coronary artery disease) Her stress test was suboptimal because of poor exercise tolerance. She has been out in [place] climbing and walking without provocation of symptoms. Echocardiogram showed normal structure and normalEF. We will continue risk factor reduction with diet and exercise. She was instructed to call us ifshe has recurrence of symptoms 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 Blood pressure controlled in the office today. Continue same medications Hypercholesterolemia Currently on rosuvastatin 20 mg daily. High intensity statin therapy. Continue diet exercise with weight loss No orders of the defined types were placed in this encounter. Other Tests Ordered: No orders of the defined types were placed in this encounter. Follow Up Ordered: Return in about 6 months (around 07/09/2019) for [place]. Referring No ref. provider found Darcy Sharpe CNP documented in this encounter* Denisse Richardson MD - 03/18/2019 11:57 AM EDT Patient ID: Carolyn Cintron is a 73 y.o. female 1945 Subjective: Carolyn Cintron presents for follow-up of Type 2 diabetes Patient has had diabetes for 32 years. Diagnosed in 1986 Patient has taken Insulin for several years Allergies Allergen Reactions Atorvastatin Other (See Comments) Exenatide Other (See Comments) Other reaction(s): Intolerance pancreatitis, though managed as outpatient pancreatitis, though managed as outpatient Lovastatin Other (See Comments) Sulfa (Sulfonamide Antibiotics) Unknown When patient had surgery, surgeon stated she had an allergic reaction to sulfa. No further information available from patient. Current Outpatient Medications Medication Sig Dispense Refill allopurinol (ZYLOPRIM) 300 MG tablet aspirin 81 MG EC tablet Take 81 mg by mouth daily. blood sugar diagnostic (ONETOUCH ULTRA BLUE TEST STRIP) strips One touch ultra blue strips - use tocheck BG 6x a day.DX code E11.65 . 200 each 11 cholecalciferol, vitamin D3, (VITAMIN D3) 1,000 unit capsule Take 1,000 Units by mouth 2 (two) times a day . cyanocobalamin (vitamin B-12) 1000 MCG tablet Take 1,000 mcg by mouth daily. fenofibrate micronized (LOFIBRA) 134 MG capsule Take 1 (one) capsule (134 mg total) by mouth daily Give with food . 90 capsule 3 fish oil-omega-3 fatty acids 300-1,000 mg capsule Take 2 g by mouth daily. fluticasone (FLONASE) 50 mcg/actuation nasal spray Instill 1 spray into each nostril daily . furosemide (LASIX) 20 MG tablet Take 20 mg by mouth daily as needed . KLOR-CON M20 20 mEq tablet Take 20 mEq by mouth daily . levothyroxine (SYNTHROID, LEVOTHROID) 112 MCG tablet magnesium oxide (MAG-OX) 400 mg tablet Take 400 mg by mouth daily. metFORMIN (GLUCOPHAGE) 1000 MG tablet Take 1,000 mg by mouth 2 (two) times a day with meals . metoprolol tartrate (LOPRESSOR) 50 MG tablet Take 50 mg by mouth 2 (two) times a day . montelukast (SINGULAIR) 10 mg tablet Take 10 mg by mouth daily . NOVOLIN N NPH U-100 INSULIN 100 unit/mL injection Inject 35 units q HS (Needs Reli-on brand) . 20 mL 12 NOVOLIN R REGULAR U-100 INSULN 100 unit/mL injection Use as directed TID (approx 80 units/day) Needs Reli-on brand . 30 mL 12 pantoprazole (PROTONIX) 40 MG tablet Take 40 mg by mouth daily. rosuvastatin (CRESTOR) 20 MG tablet Take 20 mg by mouth daily. therapeutic multivitamin (THERAGRAN) tablet Take 1 tablet by mouth daily. traZODone (DESYREL) 50 MG tablet Take by mouth nightly as needed for sleep. triamterene-hydrochlorothiazide (MAXZIDE) 75-50 mg per tablet Take 1 (one) tablet by mouth daily . (Patient taking differently: Take 1 tablet by mouth daily Reasons: 37.5/25 1/2 tab daily.) 90 tablet3 blood sugar diagnostic (ONETOUCH VERIO) strips Use as directed 6 times/day One Touch Verio strips .200 each 11 levothyroxine (SYNTHROID, LEVOTHROID) 100 MCG tablet Take 125 mcg by mouth daily . No current facility-administered medications for this visit. Past Medical History: Diagnosis Date Asthma Diabetes (HCC) Disease of thyroid gland Gout High cholesterol 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 Past Surgical History: Procedure Laterality Date BACK SURGERY 3 back surgeries CHOLECYSTECTOMY HAND SURGERY Bilateral CTR KNEE SURGERY Left TKR KNEE SURGERY Right TKR Review of Systems: Review of Systems Constitutional: Negative for appetite change, fatigue and unexpected weight change. HENT: Negative for trouble swallowing. Eyes: Negative for visual disturbance. Respiratory: Positive for cough and shortness of breath (improved). Negative for chest tightness and wheezing. Cardiovascular: Negative for chest pain, palpitations and leg swelling. Gastrointestinal: Negative for abdominal pain, constipation, diarrhea, nausea and vomiting. Endocrine: Positive for polydipsia. Negative for polyphagia and polyuria. Genitourinary: Negative for dysuria and frequency. Musculoskeletal: Negative for arthralgias, gait problem and myalgias. Skin: Negative for rash. Neurological: Negative for weakness, numbness and headaches. Psychiatric/Behavioral: Negative for sleep disturbance. The following portions of the patient's history were reviewed and updated as appropriate: allergies, current medications, past family history, past medical history, past social history, past surgicalhistory and problem list. Objective: BP 118/73 Pulse 67 Wt 92.1 kg (203 lb) BMI 35.96 kg/m Wt Readings from Last 3 Encounters: 03/18/19 92.1 kg (203 lb) 01/06/19 92.1 kg (203 lb) 12/15/18 95.6 kg (210 lb 12.8 oz) Physical Exam: Physical Exam General: alert, appears stated age and cooperative Eyes: conjunctivae/corneas clear. PERRL, EOM's intact. Neck: no adenopathy, supple, symmetrical, trachea midline. Thyroid: No thyromegaly appreciated Lung: clear to auscultation bilaterally Heart: regular rate and rhythm, S1, S2 normal, no murmur, click, rub or gallop Extremities: extremities normal, atraumatic, no cyanosis or edema Feet: Dry skin, Bilateral Feet: warm, good capillary refill and normal DP. Monofilament exam Normal, bilateral lower extremities. Neuro: normal without focal findings, mental status, speech normal, alert and oriented x3 and PHILIPPE Lab Review Lab Results Component Value Date HGBA1C 8.4 03/09/2019 Creatinine (mg/dL) Date Value 03/09/2019 1.10 No results found for: CHOL, TRIG, HDL, LDLCALC, LDL Lab Results Component Value Date TSH 0.15 03/09/2019 Lab Results Component Value Date WBC 7.50 03/09/2019 HGB 11.7 03/09/2019 HCT 36.4 03/09/2019 PLT 191 03/09/2019 Date: 03/09/19 HgbA1c 8.4% Creat 1.10, Na 136, K 4.0, eGFR 49 AST 40, ALT 32 TChol 160, TG 843 WBC 7.5, Hgb 11.7, Hct 36.4, Plt 191k Iron 61 TSH 0.15 Microalb/creat ratio 27 (<30) 12/14/2018 Hemoglobin A1c 7.6% Creatinine 1.0, sodium 136, potassium 4.1, estimated GFR 54.3 AST 37, ALT 38 Total cholesterol 153, triglyceride 862 Uric acid 5.5, magnesium 1.4 TSH 2.50, 25-hydroxy vitamin D 30.40 Iron 59, ferritin 15.0, vitamin B12 760 WBC 5.3, hemoglobin 11.4, hematocrit 34.3, platelet count 186,000 Assessment/Plan: Dx: 1. Uncontrolled type 2 diabetes mellitus with hyperglycemia (HCC) blood sugar diagnostic (inContactIO) strips Hemoglobin A1c Lipid Panel Comprehensive Metabolic Panel CBC and Differential T4, Free TSH 2. Mixed hyperlipidemia 3. Essential hypertension Type 2 diabetes, under good control Patient is currently managed with: Currently taking: Metformin 1000 mg twice daily Regular Insulin: 25 units at breakfast; 25 units at lunch; 25 units at dinner NPH insulin: 25 units at breakfast; 50 units at bedtime and 50 units at lunch Current Hemoglobin A1C= 8.4% on 03/09/19 Lab Results Component Value Date HGBA1C 8.4 03/09/2019 HGBA1C 7.1 (H) 08/31/2018 Weight trend: has decreased 7 lbs. Current diet: carb controlled Current exercise: gardening Current monitoring regimen: home blood tests - 4-5 times daily Home blood sugar records: Fasting B-286 Pre-lunch B-276 Pre-supper B-333 Bedtime B-373 Any episodes of hypoglycemia? yes - occasional NOTES: Patient has had diabetes for 32 years. She most recently had been followed by JOSE Mann at the [facility], with transfer of care to this office due to JOSE's resigning from her practice there. Due to cost of insulin she has been using R and N insulin; has had gradual improvement in BG. She recently had AM NPH added by PCP to help with her BG control. BG recently higher with prednisone. She is to continue current doses and call in BG for insulin adjustment if BG remain elevated. PLAN: See below. Continue R TID and N in AM and at HS insulin. 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 no Peripheral Neuropathy: Negative Denies symptoms associated with neuropathy (numbness and/or tingling) Autonomic Neuropathy: Negative Hypoglycemia unawareness. Senses low BG at 100 mg/dl with sweating and nausea Other: Hyperlipidemia: Positive Currently taking: rosuvastatin (Crestor), fenofibrate 67 mg qd, and fish oil. LFT's WNL 03/09/19 AST 40, ALT 32 TChol 160, TG 843. PLAN: Continue crestor and increase fenofibrate to 134 mg daily. Lab Results Component Value Date AST 40 03/09/2019 ALT 32 03/09/2019 Lab Results Component Value Date EXTCHOL 160 03/09/2019 EXTTRIG 843 03/09/2019 EXTHDL 23 (L) 08/31/2018 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: Positive. Currently taking: furosemide (Lasix), hydrochlorothiazide (HCTZ), metoprolol (Lopressor, Toprol) and triamterene BP: 118/73 Cardiac: Positive. Experiencing chest pain Yes--recently improved . Experiencing shortness of breath Yes History of ETT 10/06/18--low exercise tolerance, inadequate for diagnosis and Cardiac [id number] moderate disease Patient was evaluated by Dr. Saunders in August,; at that time she was not symptomatic. Subsequently, she developed chest tightness and an ETT was performed. The ETT was nondiagnostic due to inadequate exercise achieved. She was having some increased SOB and echo was checked; basically normal with LVEF 65-70%.She states that she did well on recent trip to [place], and has not had much SOB recently. Follows routinely with: [facility]: Negative History of Edema left lower leg, chronic, mild. 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 Lab Results Component Value Date TSH 0.15 03/09/2019 Positive Hypothyroidism on levothyroxine 125 mcg/day. PLAN: Recently dose reduced to 112 mcg/day due to TSH suppression of 0.15. Other: Plan: 1. Rx changes: Continue current regimen; recently placed on prednisone for 1 week. Regular Insulin: 25 units at breakfast; 25 units at lunch; 25 units at dinner NPH insulin: 25 units at breakfast; 50 units at bedtime Metformin 1000 mg twice daily 2. Education: Reviewed ABCs of diabetes management (respective goals in parentheses): A1C (7.0-8.0), blood pressure (<130/80), and cholesterol (LDL <100). 3. Compliance at present is estimated to be good. Efforts to improve compliance (if necessary) willbe directed at dietary modifications: portion control and regular blood sugar monitorin times daily. 4. Follow up: 3 months 5. Record blood sugar readings as instructed. Call if BG consistently <70 or >250. [phone] Patient has been checking blood glucoses 4 times daily for the past 90 days. Patient needs to continue checking blood glucoses 4 times daily. Blood glucose readings are used to adjust medication or insulin doses for meals, monitor dietary compliance, and adjust for high or low blood glucoses by patient on a daily basis. Blood glucose readings are reviewed at office visits for adjustment in medication regimen and assistance with dietary management, and other self- management issues including exercise, etc. Prognosis: Good. Duration of need for diabetes testing equipment: Permanent #150 strips/month prescribed. 6. Bring blood sugar meter to follow up appointment. Orders Placed This Encounter Procedures Hemoglobin A1c Lipid Panel Comprehensive Metabolic Panel CBC and Differential T4, Free TSH Kassi CHAPMAN documented in this encounter* Genaro Carlson MD - 08/03/2019 11:47 AM EST This pleasant 73-year-old female had approximately 6 cysts removed around the edges of the vagina. 2 additional cysts were noted between the vagina and the anus, and her court clerk told her these would have to be removed by a surgeon. They have been present for several years but are starting to bother her more, especially when she sits for a prolonged period of time. Medical history reviewed Exam: In the midline and off to the right of the midline in the perineum between the posterior aspect of the vagina and the anus, there are 2 small nodular lesions. There is no fluctuance or evidenceof infection. The larger measures approximately 8 x 7 mm with a smaller being approximately 6 x 5 mm. She would like these excised. I offered that we could consider this in the office under local anesthesia or consider in the operating room with sedation, but she has significant medical history. She actually had the others removed in the office under local anesthesia and would prefer to do it that way. We will schedule it for the near future. documented in this encounter* Genaro Carlson MD - 08/23/2019 11:54 AM EST The 2 largest nodules in the peritoneum were again identified. Consent was obtained for excision. The area was prepped in the usual fashion using Betadine. The skin and subcutaneous tissues were thenanesthetized with 1% lidocaine. The nodules were then excised sharply, the larger one resulting in a 12 x 14 mm excision, and the smaller one10 x 10 mm, and they were sent for permanent pathology. Closure was carried out with interrupted 3-0 Vicryl sutures. All bleeding appeared to be controlled atthe conclusion. The patient was given home-going instructions and asked to follow-up with me in 1 week. She was also asked to hold her aspirin until Friday. documented in this encounter* Reinier Wiseman PA-C - 09/04/2019 11:38 AM EST Patient ID: Carolyn Cintron is a 73 y.o. female 1945 Subjective: Carolyn Cintron presents for follow-up of Type 2 diabetes Patient has had diabetes for 32 years. Diagnosed in 1986 Patient has taken Insulin for several years Allergies Allergen Reactions Atorvastatin Other (See Comments) Exenatide Other (See Comments) Other reaction(s): Intolerance pancreatitis, though managed as outpatient pancreatitis, though managed as outpatient Lovastatin Other (See Comments) Sulfa (Sulfonamide Antibiotics) Unknown When patient had surgery, surgeon stated she had an allergic reaction to sulfa. No further information available from patient. Current Outpatient Medications Medication Sig Dispense Refill allopurinol (ZYLOPRIM) 300 MG tablet aspirin 81 MG EC tablet Take 81 mg by mouth daily. blood sugar diagnostic (ONETOUCH ULTRA BLUE TEST STRIP) strips One touch ultra blue strips - use tocheck BG 6x a day.DX code E11.65 . 200 each 11 blood sugar diagnostic (ONETOUCH VERIO) strips Use as directed 6 times/day One Touch Verio strips .200 each 11 C/sourcherry/celery/grape seed (TART MOY ORAL) Take by mouth . cholecalciferol, vitamin D3, (VITAMIN D3) 1,000 unit capsule Take 1,000 Units by mouth 2 (two) times a day . cyanocobalamin (vitamin B-12) 1000 MCG tablet Take 1,000 mcg by mouth daily. fenofibrate micronized (LOFIBRA) 134 MG capsule Take 1 (one) capsule (134 mg total) by mouth daily Give with food . 90 capsule 3 fish oil-omega-3 fatty acids 300-1,000 mg capsule Take 2 g by mouth daily. fluticasone (FLONASE) 50 mcg/actuation nasal spray Instill 1 spray into each nostril daily . furosemide (LASIX) 20 MG tablet Take 20 mg by mouth daily as needed . KLOR-CON M20 20 mEq tablet Take 20 mEq by mouth daily . levothyroxine (SYNTHROID, LEVOTHROID) 112 MCG tablet loratadine (Claritin Liqui-Gel) 10 mg cap Take by mouth . magnesium oxide (MAG-OX) 400 mg tablet Take 400 mg by mouth daily. metFORMIN (GLUCOPHAGE) 1000 MG tablet Take 1,000 mg by mouth 2 (two) times a day with meals . metoprolol tartrate (LOPRESSOR) 50 MG tablet Take 50 mg by mouth 2 (two) times a day . montelukast (SINGULAIR) 10 mg tablet Take 10 mg by mouth daily . NovoLIN N NPH U-100 Insulin 100 unit/mL injection Use as directed twice daily, approx 60 units daily (Needs Reli-on brand) . 30 mL 12 NOVOLIN R REGULAR U-100 INSULN 100 unit/mL injection Use as directed TID (approx 80 units/day) Needs Reli-on brand . 30 mL 12 pantoprazole (PROTONIX) 40 MG tablet Take 40 mg by mouth daily. rosuvastatin (CRESTOR) 20 MG tablet Take 20 mg by mouth daily. therapeutic multivitamin (THERAGRAN) tablet Take 1 tablet by mouth daily. traZODone (DESYREL) 50 MG tablet Take by mouth nightly as needed for sleep. triamterene-hydrochlorothiazide (MAXZIDE) 75-50 mg per tablet Take 1 (one) tablet by mouth daily . 90 tablet 3 No current facility-administered medications for this visit. Past Medical History: Diagnosis Date Asthma Diabetes mellitus (HCC) Gout High cholesterol 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 Hypothyroid Shigella dysentery Past Surgical History: Procedure Laterality Date CARDIAC CATHETERIZATION 2007 CARDIAC CATHETERIZATION 2008 CARPAL TUNNEL RELEASE Bilateral CHOLECYSTECTOMY 1993 COLONOSCOPY 1998 LAMINECTOMY DISC LUMBAR SINGLE LEVEL 10/15/2011 GABO/BSO 1979 TOTAL KNEE ARTHROPLASTY Bilateral UMBILICAL HERNIA REPAIR Review of Systems: Review of Systems Constitutional: Negative for appetite change, fatigue and unexpected weight change. HENT: Negative for trouble swallowing. Eyes: Negative for visual disturbance. Respiratory: Positive for cough and shortness of breath (improved). Negative for chest tightness and wheezing. Cardiovascular: Negative for chest pain, palpitations and leg swelling. Gastrointestinal: Negative for abdominal pain, constipation, diarrhea, nausea and vomiting. Endocrine: Positive for polydipsia. Negative for polyphagia and polyuria. Genitourinary: Negative for dysuria and frequency. Musculoskeletal: Negative for arthralgias, gait problem and myalgias. Skin: Negative for rash. Neurological: Negative for weakness, numbness and headaches. Psychiatric/Behavioral: Negative for sleep disturbance. The following portions of the patient's history were reviewed and updated as appropriate: allergies, current medications, past family history, past medical history, past social history, past surgicalhistory and problem list. Objective: BP 144/67 Pulse 67 Ht 5' 3 Wt 92.1 kg (203 lb) BMI 35.96 kg/m Wt Readings from Last 3 Encounters: 09/02/19 92.1 kg (203 lb) 08/30/19 92.4 kg (203 lb 12.8 oz) 08/23/19 91.5 kg (201 lb 11.2 oz) Physical Exam: Physical Exam General: alert, appears stated age and cooperative Eyes: conjunctivae/corneas clear. PERRL, EOM's intact. Neck: no adenopathy, supple, symmetrical, trachea midline. Thyroid: No thyromegaly appreciated Lung: clear to auscultation bilaterally Heart: regular rate and rhythm, S1, S2 normal, no murmur, click, rub or gallop Extremities: extremities normal, atraumatic, no cyanosis or edema Feet: Dry skin, Bilateral Feet: warm, good capillary refill and normal DP. Monofilament exam Normal, bilateral lower extremities. Neuro: normal without focal findings, mental status, speech normal, alert and oriented x3 and PHILIPPE Lab Review Lab Results Component Value Date HGBA1C 7.2 (H) 08/30/2019 Glucose (mg/dL) Date Value 08/30/2019 157 (H) Creatinine (mg/dL) Date Value 08/30/2019 1.28 (H) 03/09/2019 1.10 Lab Results Component Value Date CHOL 158 08/30/2019 TRIG 729 (H) 08/30/2019 HDL 22 (L) 08/30/2019 LDLCALC 08/30/2019 Comment: Calculated LDL invalid, triglycerides >400 mg/dl Lab Results Component Value Date TSH 1.88 08/30/2019 Lab Results Component Value Date WBC 5.03 08/30/2019 HGB 12.1 08/30/2019 HCT 37.3 08/30/2019 MCV 94.4 08/30/2019 PLT 236 08/30/2019 08/30/2019 Hemoglobin A1c 7.2% Creatinine 1.28, estimated GFR 42, K4.1 AST 32, ALT 34 T cholesterol 158, TG 729, HDL 22, LDL 56 TSH 1.88, free T4--0.9 Date: 03/09/19 HgbA1c 8.4% Creat 1.10, Na 136, K 4.0, eGFR 49 AST 40, ALT 32 TChol 160, TG 843 WBC 7.5, Hgb 11.7, Hct 36.4, Plt 191k Iron 61 TSH 0.15 Microalb/creat ratio 27 (<30) 12/14/2018 Hemoglobin A1c 7.6% Creatinine 1.0, sodium 136, potassium 4.1, estimated GFR 54.3 AST 37, ALT 38 Total cholesterol 153, triglyceride 862 Uric acid 5.5, magnesium 1.4 TSH 2.50, 25-hydroxy vitamin D 30.40 Iron 59, ferritin 15.0, vitamin B12 760 WBC 5.3, hemoglobin 11.4, hematocrit 34.3, platelet count 186,000 Assessment/Plan: Dx: 1. Uncontrolled type 2 diabetes mellitus with hyperglycemia (HCC) Hemoglobin A1c 2. Essential hypertension triamterene-hydrochlorothiazide (MAXZIDE) 75-50 mg per tablet 3. Mixed hyperlipidemia Comprehensive Metabolic Panel Lipid Panel Type 2 diabetes, under good control Patient is currently managed with: Currently taking: Metformin 1000 mg twice daily Regular Insulin: 25 units at breakfast; 25 units at lunch; 25 units at dinner NPH insulin: 25 units at breakfast; 50 units at bedtime and 50 units at lunch Current Hemoglobin A1C 8.4% on 03/09/19 Lab Results Component Value Date HGBA1C 7.2 (H) 08/30/2019 HGBA1C 8.4 03/09/2019 HGBA1C 7.1 (H) 08/31/2018 Weight trend: is stable Current diet: carb controlled Current exercise: gardening Current monitoring regimen: home blood tests - 4-5 times daily Home blood sugar records: See scanned records Fasting BG: Pre-lunch BG: Pre-supper BG: Bedtime BG: Any episodes of hypoglycemia? yes - occasional NOTES: Patient has improved glycemic control since her last appointment with hemoglobin A1c of 7.2%which is improved from 8.4% in 03/2019. She states she is eating smaller portions and following a more diabetic friendly diet. Retinopathy: Negative Exam within last 12 months: yes Date: 12/02/18 [facility]n [facility] Stripper: Antwan Other Ophthalmologic Conditions: S/P Right cataract extraction with IOLI and S/P Left cataract extraction with IOLI Nephropathy: Negative Lab Results Component Value Date CREATININE 1.28 (H) 08/30/2019 EXTEGFR 48.6 03/09/2019 EXTEGFRAFAME 58.9 03/09/2019 Microlbumin/creat ratio: 27 (nl <30) on 03/09/19 Is patient on MARYLOU inhibitor or angiotensin II receptor kenny? no Peripheral Neuropathy: Negative Denies symptoms associated with neuropathy (numbness and/or tingling) Autonomic Neuropathy: Negative Hypoglycemia unawareness. Senses low BG at 100 mg/dl with sweating and nausea Other: Hyperlipidemia: Positive Currently taking: rosuvastatin (Crestor), fenofibrate 67 mg qd, and fish oil. LFT's WNL TChol 160, TG 843. 08/2019: T cholesterol 158, TG 729, HDL 22, LDL 56 PLAN: CPM. Patient is on max dose of statin and fenofibrate recommended. Strongly encouraged increased physical activity and a strict low-fat/low-cholesterol diet in order to improve triglycerides. Lab Results Component Value Date AST 32 08/30/2019 ALT 34 08/30/2019 Lab Results Component Value Date EXTCHOL 160 03/09/2019 EXTTRIG 843 03/09/2019 EXTHDL 23 (L) 08/31/2018 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: Positive. Currently taking: furosemide (Lasix), hydrochlorothiazide (HCTZ), metoprolol (Lopressor, Toprol) and triamterene BP: 144/67 Cardiac: Positive. Experiencing chest pain Yes--recently improved . Experiencing shortness of breath Yes History of ETT 10/06/18--low exercise tolerance, inadequate for diagnosis and Cardiac [id number] moderate disease Follows routinely with: [facility]: Negative History of Edema left lower leg, chronic, mild. 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 Lab Results Component Value Date TSH 1.88 08/30/2019 Positive Hypothyroidism on levothyroxine 112 mcg/day. PLAN: CPM Other: Plan: 1. Rx changes: Decrease lunch dose Regular Insulin: 25 units at breakfast; 23 units at lunch; 25 units at dinner NPH insulin: 25 units at breakfast; 50 units at bedtime Metformin 1000 mg twice daily 2. Education: Reviewed ABCs of diabetes management (respective goals in parentheses): A1C (7.0-8.0), blood pressure (<130/80), and cholesterol (LDL <100). 3. Compliance at present is estimated to be good. Efforts to improve compliance (if necessary) willbe directed at dietary modifications: portion control and regular blood sugar monitorin times daily. 4. Follow up: 3 months 5. Record blood sugar readings as instructed. Call if BG consistently <70 or >250. [phone] Patient has been checking blood glucoses 4 times daily for the past 90 days. Patient needs to continue checking blood glucoses 4 times daily. Blood glucose readings are used to adjust medication or insulin doses for meals, monitor dietary compliance, and adjust for high or low blood glucoses by patient on a daily basis. Blood glucose readings are reviewed at office visits for adjustment in medication regimen and assistance with dietary management, and other self- management issues including exercise, etc. Prognosis: Good. Duration of need for diabetes testing equipment: Permanent #150 strips/month prescribed. 6. Bring blood sugar meter to follow up appointment. Orders Placed This Encounter Procedures Comprehensive Metabolic Panel Hemoglobin A1c Lipid Panel Electronically signed by: Reinier Wiseman PA-C, [facility] 09/04/19 11:42 AM documented in this encounter* Frances Nascimento, SUM[employer] WRESTLER - 01/03/2020 8:45 AM EDT Patient ID: Carolyn Cintron is a 74 y.o. female 1945 Subjective: Carolyn Cintron presents for follow-up of Type 2 diabetes Patient has had diabetes for 32 years. Diagnosed in 1986 Patient has taken Insulin for several years Ms. Cintron is a 74-year-old female patient who presents the office for follow-up of her type 2 diabetes. Patient denies any complaints today regards to her diabetes. She states that she has been feeling fairly well. She does report having some occasional diarrhea but she is unsure the cause of that.Her most recent hemoglobin A1c was 7.1% on 12/27/2019. She reports following a diabetic diet that isalso low in fat and cholesterol. She is a history of high triglycerides and she takes fenofibrate and Crestor for that. She is tried Lipitor in the past however she cannot tolerate it due to myalgias. 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 That is also secondary to her chronic back issues. She checks her blood sugar 4 times per day and those were reviewed below. Allergies Allergen Reactions Atorvastatin Other (See Comments) Exenatide Other (See Comments) Other reaction(s): Intolerance pancreatitis, though managed as outpatient pancreatitis, though managed as outpatient Lovastatin Other (See Comments) Sulfa (Sulfonamide Antibiotics) Unknown When patient had surgery, surgeon stated she had an allergic reaction to sulfa. No further information available from patient. Current Outpatient Medications Medication Sig Dispense Refill allopurinol (ZYLOPRIM) 300 MG tablet aspirin 81 MG EC tablet Take 81 mg by mouth daily. blood sugar diagnostic (ONETOUCH ULTRA BLUE TEST STRIP) strips One touch ultra blue strips - use tocheck BG 6x a day.DX code E11.65 . 200 each 11 blood sugar diagnostic (ONETOUCH VERIO) strips Use as directed 6 times/day One Touch Verio strips .200 each 11 C/sourcherry/celery/grape seed (TART MOY ORAL) Take by mouth . cholecalciferol, vitamin D3, (VITAMIN D3) 1,000 unit capsule Take 1,000 Units by mouth 2 (two) times a day . cyanocobalamin (vitamin B-12) 1000 MCG tablet Take 1,000 mcg by mouth daily. fenofibrate micronized (LOFIBRA) 134 MG capsule Take 1 (one) capsule (134 mg total) by mouth daily Give with food . 90 capsule 3 fish oil-omega-3 fatty acids 300-1,000 mg capsule Take 2 g by mouth daily. fluticasone (FLONASE) 50 mcg/actuation nasal spray Instill 1 spray into each nostril daily . furosemide (LASIX) 20 MG tablet Take 20 mg by mouth daily as needed . KLOR-CON M20 20 mEq tablet Take 20 mEq by mouth daily . levothyroxine (SYNTHROID, LEVOTHROID) 112 MCG tablet loratadine (Claritin Liqui-Gel) 10 mg cap Take by mouth . magnesium oxide (MAG-OX) 400 mg tablet Take 400 mg by mouth daily. metFORMIN (GLUCOPHAGE) 500 MG tablet Take 1 (one) tablet (500 mg total) by mouth 2 (two) times a day with meals . 180 tablet 3 metoprolol tartrate (LOPRESSOR) 50 MG tablet Take 50 mg by mouth 2 (two) times a day . montelukast (SINGULAIR) 10 mg tablet Take 10 mg by mouth daily . NovoLIN N NPH U-100 Insulin 100 unit/mL injection Use as directed twice daily, approx 85 units daily (Needs Reli-on brand) . 30 mL 12 NovoLIN R Regular U-100 Insuln 100 unit/mL injection USE DIRECTED THREE TIMES DAILY INJECTING UPTO 80 UNITS PER DAY . 30 mL 6 pantoprazole (PROTONIX) 40 MG tablet Take 40 mg by mouth daily. rosuvastatin (CRESTOR) 20 MG tablet Take 20 mg by mouth daily. therapeutic multivitamin (THERAGRAN) tablet Take 1 tablet by mouth daily. traZODone (DESYREL) 50 MG tablet Take by mouth nightly as needed for sleep. triamterene-hydrochlorothiazide (MAXZIDE) 75-50 mg per tablet Take 1 (one) tablet by mouth daily . 90 tablet 3 No current facility-administered medications for this visit. Review of Systems: Review of Systems Constitutional: Negative for appetite change, fatigue and unexpected weight change. HENT: Negative for trouble swallowing. Eyes: Negative for visual disturbance. Respiratory: Negative for cough, chest tightness, shortness of breath and wheezing. Cardiovascular: Negative for chest pain, palpitations and leg swelling. Gastrointestinal: Negative for abdominal pain, constipation, diarrhea, nausea and vomiting. Endocrine: Positive for polydipsia. Negative for polyphagia and polyuria. Genitourinary: Negative for dysuria and frequency. Musculoskeletal: Negative for arthralgias, gait problem and myalgias. Skin: Negative for rash. Neurological: Negative for weakness, numbness and headaches. Psychiatric/Behavioral: Negative for sleep disturbance. The following portions of the patient's history were reviewed and updated as appropriate: allergies, current medications, past family history, past medical history, past social history, past surgicalhistory and problem list. Objective: BP 126/71 Pulse 71 Ht 5' 3 Wt 91.1 kg (200 lb 14.4 oz) BMI 35.59 kg/m Wt Readings from Last 3 Encounters: 01/03/20 91.1 kg (200 lb 14.4 oz) 09/02/19 92.1 kg (203 lb) 08/30/19 92.4 kg (203 lb 12.8 oz) Physical Exam: Physical Exam General: alert, appears stated age and cooperative Eyes: conjunctivae/corneas clear. PERRL, EOM's intact. Neck: no adenopathy, supple, symmetrical, trachea midline. Thyroid: No thyromegaly appreciated Lung: clear to auscultation bilaterally Heart: regular rate and rhythm, S1, S2 normal, no murmur, click, rub or gallop Extremities: extremities normal, atraumatic, no cyanosis or edema Feet: Dry skin, Bilateral Feet: warm, good capillary refill and normal DP. Monofilament exam Normal, bilateral lower extremities. Neuro: normal without focal findings, mental status, speech normal, alert and oriented x3 and PHILIPPE Lab Review Lab Results Component Value Date HGBA1C 7.2 (H) 08/30/2019 Glucose (mg/dL) Date Value 08/30/2019 157 (H) Creatinine (mg/dL) Date Value 08/30/2019 1.28 (H) 03/09/2019 1.10 Lab Results Component Value Date CHOL 158 08/30/2019 TRIG 729 (H) 08/30/2019 HDL 22 (L) 08/30/2019 LDLCALC 08/30/2019 Comment: Calculated LDL invalid, triglycerides >400 mg/dl Lab Results Component Value Date TSH 1.88 08/30/2019 Lab Results Component Value Date WBC 5.03 08/30/2019 HGB 12.1 08/30/2019 HCT 37.3 08/30/2019 MCV 94.4 08/30/2019 PLT 236 08/30/2019 12/27/2019 Hemoglobin A1c 7.1% Creatinine 1.2 GFR 43 AAST 39 ALT 21 Cholesterol 171 triglycerides 1072, HDL LDL unable to be calculated Vitamin D 39 WBC 4 hemoglobin 11.8 hematocrit 38.3 platelets 217 08/30/2019 Hemoglobin A1c 7.2% Creatinine 1.28, estimated GFR 42, K4.1 AST 32, ALT 34 T cholesterol 158, TG 729, HDL 22, LDL 56 TSH 1.88, free T4--0.9 Date: 03/09/19 HgbA1c 8.4% Creat 1.10, Na 136, K 4.0, eGFR 49 AST 40, ALT 32 TChol 160, TG 843 WBC 7.5, Hgb 11.7, Hct 36.4, Plt 191k Iron 61 TSH 0.15 Microalb/creat ratio 27 (<30) 12/14/2018 Hemoglobin A1c 7.6% Creatinine 1.0, sodium 136, potassium 4.1, estimated GFR 54.3 AST 37, ALT 38 Total cholesterol 153, triglyceride 862 Uric acid 5.5, magnesium 1.4 TSH 2.50, 25-hydroxy vitamin D 30.40 Iron 59, ferritin 15.0, vitamin B12 760 WBC 5.3, hemoglobin 11.4, hematocrit 34.3, platelet count 186,000 Assessment/Plan: Dx: 1. Type 2 diabetes mellitus with other circulatory complication, with long-term current use of insulin (HCC) Hemoglobin A1c Comprehensive Metabolic Panel 2. Hypothyroidism, unspecified type T4, Free TSH 3. Essential hypertension 4. Mixed hyperlipidemia Lipid Panel Type 2 diabetes, under good control Patient is currently managed with: Currently taking: Metformin 1000 mg twice daily Regular Insulin: 25 units at breakfast; 23 units at lunch; 25 units at dinner NPH insulin: 25 units at breakfast; 60 units at bedtime Current Hemoglobin A1C 7.1% 12/27/2019 8.4% on 03/09/19 Lab Results Component Value Date HGBA1C 7.2 (H) 08/30/2019 HGBA1C 8.4 03/09/2019 HGBA1C 7.1 (H) 08/31/2018 Weight trend: is stable Current diet: carb controlled Current exercise: gardening Current monitoring regimen: home blood tests - 4-5 times daily Home blood sugar records: Fasting B-178 Pre-lunch B-97 Pre-supper B-201 Bedtime B-285 Any episodes of hypoglycemia? None NOTES: Retinopathy: Negative Exam within last 12 months: yes Date: 12/2019 [facility] Stripper: Antwan Other Ophthalmologic Conditions: S/P Right cataract extraction with IOLI and S/P Left cataract extraction with IOLI Nephropathy: Positive Creatinine 1.2, GFR 43 on 12/27/2019 Lab Results Component Value Date CREATININE 1.28 (H) 08/30/2019 EXTEGFR 48.6 03/09/2019 EXTEGFRAFAME 58.9 03/09/2019 Microlbumin/creat ratio: 27 (nl <30) on 03/09/19 Is patient on MARYLOU inhibitor or angiotensin II receptor kenny? no Peripheral Neuropathy: Positive Reports bilateral numbness and tingling in feet mostly in left foot, also secondary to back issues. Autonomic Neuropathy: Negative Hypoglycemia unawareness. Senses low BG at 100 mg/dl with sweating and nausea Other: Hyperlipidemia: Positive Currently taking: rosuvastatin (Crestor), fenofibrate and fish oil. LFT's WNL 12/27/2019: Cholesterol 171, triglycerides 1072, HDL LDL unable to be calculated PLAN: CPM. Patient reports she does take her fenofibrate, fish oil and Crestor as prescribed. She is unable to tolerate any other statin medications due to myalgias. She was asked to discuss this in addition with her PCP for any other recommendations. She does report that she has been eating a lot of pork recently and that may contribute to her high triglycerides, more so than her usual. Lab Results Component Value Date AST 32 08/30/2019 ALT 34 08/30/2019 Lab Results Component Value Date EXTCHOL 160 03/09/2019 EXTTRIG 843 03/09/2019 EXTHDL 23 (L) 08/31/2018 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: Positive. Currently taking: furosemide (Lasix)-PRN, metoprolol (Lopressor, Toprol) triamterene/hydrochlorothiazide (HCTZ), BP: 126/71 Cardiac: Positive. Experiencing chest pain Yes--recently improved . Experiencing shortness of breath Yes History of ETT 10/06/18--low exercise tolerance, inadequate for diagnosis and Cardiac [id number] moderate disease Follows routinely with: [facility] 12/18/18 Transthoracic echo. Conclusions: Normal LV size and systolic function LVEF 65-70% Normal RV size and function Normal diastolic function No hemodynamically significant valvular disease Vascular: Negative History of Edema left lower leg, chronic, mild. 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 PLAN: CPM, check TFTs prior to next visit Other: Has hx. Of 3 back surgeries, By Dr Fields. Plan: 1. Rx changes: none Regular Insulin: 25 units at breakfast; 23 units at lunch; 25 units at dinner NPH insulin: 25 units at breakfast; 60 units at bedtime Metformin 500 mg twice daily Patient was instructed to take metformin 500 mg twice daily. This is secondary to her kidney function in addition it may help with her complaints of diarrhea. She was asked to call the office should she start noticing her blood sugars running higher than usual we may need to make some adjustments to her insulin doses if needed. 2. Education: Reviewed ABCs of diabetes management (respective goals in parentheses): A1C (7.0-8.0), blood pressure (<130/80), and cholesterol (LDL <100). 3. Compliance at present is estimated to be good. Efforts to improve compliance (if necessary) willbe directed at dietary modifications: portion control and regular blood sugar monitorin times daily. 4. Follow up: 3 months 5. Record blood sugar readings as instructed. Call if BG consistently <70 or >250. [phone] Patient has been checking blood glucoses 4 times daily for the past 90 days. Patient needs to continue checking blood glucoses 4 times daily. Blood glucose readings are used to adjust medication or insulin doses for meals, monitor dietary compliance, and adjust for high or low blood glucoses by patient on a daily basis. Blood glucose readings are reviewed at office visits for adjustment in medication regimen and assistance with dietary management, and other self- management issues including exercise, etc. Prognosis: Good. Duration of need for diabetes testing equipment: Permanent #150 strips/month prescribed. 6. Bring blood sugar meter to follow up appointment. Orders Placed This Encounter Procedures Hemoglobin A1c Comprehensive Metabolic Panel Lipid Panel T4, Free TSH Electronically signed by Frances DONAHUE 208:46 AM documented in this encounter* Reinier Wiseman PA-C - 04/05/2020 8:52 AM EDT Patient ID: Carolyn Cintron is a 74 y.o. female 1945 Subjective: Carolyn Cintron presents for follow-up of Type 2 diabetes Patient has had diabetes for 32 years. Diagnosed in 1986 Patient has taken Insulin for several years Patient here in follow-up last seen in 12/2019 at which time her hemoglobin A1c was 7.2%. She feels since that time her blood sugar control is mostly unchanged. She does report occasional hypoglycemiabetween breakfast and lunch. Hemoglobin A1c is decreased to 6.5%. She has an appointment with her PCP tomorrow for which she plans to address her hyperlipidemia/hypertriglyceridemia. Allergies Allergen Reactions Atorvastatin Other (See Comments) Exenatide Other (See Comments) Other reaction(s): Intolerance pancreatitis, though managed as outpatient pancreatitis, though managed as outpatient Lovastatin Other (See Comments) Sulfa (Sulfonamide Antibiotics) Unknown When patient had surgery, surgeon stated she had an allergic reaction to sulfa. No further information available from patient. Current Outpatient Medications Medication Sig Dispense Refill allopurinol (ZYLOPRIM) 300 MG tablet aspirin 81 MG EC tablet Take 81 mg by mouth daily. blood sugar diagnostic (OneTouch Verio test strips) strips USe to check BG 4x daily, DX code E11.65insulin used . 150 each 11 blood sugar diagnostic (ONETOUCH VERIO) strips Use as directed 6 times/day One Touch Verio strips .200 each 11 C/sourcherry/celery/grape seed (TART MOY ORAL) Take by mouth . cholecalciferol, vitamin D3, (VITAMIN D3) 1,000 unit capsule Take 1,000 Units by mouth 2 (two) times a day . cyanocobalamin (vitamin B-12) 1000 MCG tablet Take 1,000 mcg by mouth daily. fenofibrate micronized (LOFIBRA) 134 MG capsule Take 1 (one) capsule (134 mg total) by mouth daily Give with food . 90 capsule 3 fish oil-omega-3 fatty acids 300-1,000 mg capsule Take 2 g by mouth daily. fluticasone (FLONASE) 50 mcg/actuation nasal spray Instill 1 spray into each nostril daily . furosemide (LASIX) 20 MG tablet Take 20 mg by mouth daily as needed . KLOR-CON M20 20 mEq tablet Take 20 mEq by mouth daily . levothyroxine (SYNTHROID, LEVOTHROID) 112 MCG tablet loratadine (Claritin Liqui-Gel) 10 mg cap Take by mouth . magnesium oxide (MAG-OX) 400 mg tablet Take 400 mg by mouth daily. metFORMIN (GLUCOPHAGE) 500 MG tablet Take 1 (one) tablet (500 mg total) by mouth 2 (two) times a day with meals . 180 tablet 3 metoprolol tartrate (LOPRESSOR) 50 MG tablet Take 50 mg by mouth 2 (two) times a day . montelukast (SINGULAIR) 10 mg tablet Take 10 mg by mouth daily . NovoLIN N NPH U-100 Insulin 100 unit/mL injection Use as directed twice daily, approx 85 units daily (Needs Reli-on brand) . 30 mL 12 NovoLIN R Regular U-100 Insuln 100 unit/mL injection USE DIRECTED THREE TIMES DAILY INJECTING UPTO 80 UNITS PER DAY . 30 mL 6 pantoprazole (PROTONIX) 40 MG tablet Take 40 mg by mouth daily. rosuvastatin (CRESTOR) 20 MG tablet Take 20 mg by mouth daily. therapeutic multivitamin (THERAGRAN) tablet Take 1 tablet by mouth daily. traZODone (DESYREL) 50 MG tablet Take by mouth nightly as needed for sleep. triamterene-hydrochlorothiazide (MAXZIDE) 75-50 mg per tablet Take 1 (one) tablet by mouth daily . 90 tablet 3 blood sugar diagnostic (glucose blood) strips Use to test 6 times per day. DG code E11.65. Use whatcoordinates with pt meter. . 200 each 11 blood sugar diagnostic (ONETOUCH ULTRA BLUE TEST STRIP) strips One touch ultra blue strips - use [employer] BG 6x a day.DX code E11.65 . 200 each 11 No current facility-administered medications for this visit. Review of Systems: Review of Systems Constitutional: Negative for appetite change, fatigue and unexpected weight change. HENT: Negative for trouble swallowing. Eyes: Negative for visual disturbance. Respiratory: Negative for cough, chest tightness, shortness of breath and wheezing. Cardiovascular: Negative for chest pain, palpitations and leg swelling. Gastrointestinal: Negative for abdominal pain, constipation, diarrhea, nausea and vomiting. Endocrine: Negative for polydipsia, polyphagia and polyuria. Genitourinary: Negative for dysuria and frequency. Musculoskeletal: Negative for arthralgias, gait problem and myalgias. Skin: Negative for rash. Neurological: Negative for weakness, numbness and headaches. Psychiatric/Behavioral: Negative for sleep disturbance. The following portions of the patient's history were reviewed and updated as appropriate: allergies, current medications, past family history, past medical history, past social history, past surgicalhistory and problem list. Objective: BP (!) 150/70 Pulse 65 Ht 5' 3 Wt 90.7 kg (200 lb) BMI 35.43 kg/m Wt Readings from Last 3 Encounters: 04/03/20 90.7 kg (200 lb) 01/03/20 91.1 kg (200 lb 14.4 oz) 09/02/19 92.1 kg (203 lb) Physical Exam: Physical Exam General: alert, appears stated age and cooperative Eyes: conjunctivae/corneas clear. PERRL, EOM's intact. Neck: no adenopathy, supple, symmetrical, trachea midline. Thyroid: No thyromegaly appreciated Lung: clear to auscultation bilaterally Heart: regular rate and rhythm, S1, S2 normal, no murmur, click, rub or gallop Extremities: extremities normal, atraumatic, no cyanosis or edema Feet: Dry skin, Bilateral Feet: warm, good capillary refill and normal DP. Monofilament exam Normal, bilateral lower extremities. Neuro: normal without focal findings, mental status, speech normal, alert and oriented x3 and PHILIPPE Lab Review Lab Results Component Value Date HGBA1C 6.5 03/29/2020 Glucose (mg/dL) Date Value 08/30/2019 157 (H) Creatinine (mg/dL) Date Value 03/29/2020 1.40 Lab Results Component Value Date CHOL 158 08/30/2019 TRIG 729 (H) 08/30/2019 HDL 22 (L) 08/30/2019 LDLCALC 08/30/2019 Comment: Calculated LDL invalid, triglycerides >400 mg/dl Lab Results Component Value Date TSH 1.33 03/29/2020 Lab Results Component Value Date WBC 4.60 03/29/2020 HGB 11.7 03/29/2020 HCT 37.1 03/29/2020 MCV 94.4 08/30/2019 PLT 214 03/29/2020 03/29/2020 Hemoglobin A1c 6.5% Creatinine 1.40, estimated GFR 36, K4.3 AST 39, ALT 24 T cholesterol 187, triglycerides 1026 TSH 1.33, free T4: 1.27 Microalbumin/creatinine ratio: 48 12/27/2019 Hemoglobin A1c 7.1% Creatinine 1.2 GFR 43 AAST 39 ALT 21 Cholesterol 171 triglycerides 1072, HDL LDL unable to be calculated Vitamin D 39 WBC 4 hemoglobin 11.8 hematocrit 38.3 platelets 217 08/30/2019 Hemoglobin A1c 7.2% Creatinine 1.28, estimated GFR 42, K4.1 AST 32, ALT 34 T cholesterol 158, TG 729, HDL 22, LDL 56 TSH 1.88, free T4--0.9 Date: 03/09/19 HgbA1c 8.4% Creat 1.10, Na 136, K 4.0, eGFR 49 AST 40, ALT 32 TChol 160, TG 843 WBC 7.5, Hgb 11.7, Hct 36.4, Plt 191k Iron 61 TSH 0.15 Microalb/creat ratio 27 (<30) 12/14/2018 Hemoglobin A1c 7.6% Creatinine 1.0, sodium 136, potassium 4.1, estimated GFR 54.3 AST 37, ALT 38 Total cholesterol 153, triglyceride 862 Uric acid 5.5, magnesium 1.4 TSH 2.50, 25-hydroxy vitamin D 30.40 Iron 59, ferritin 15.0, vitamin B12 760 WBC 5.3, hemoglobin 11.4, hematocrit 34.3, platelet count 186,000 Assessment/Plan: Dx: 1. Type 2 diabetes mellitus with other circulatory complication, with long-term current use of insulin ([facility]) Comprehensive Metabolic Panel Hemoglobin A1c Lipid Panel Type 2 diabetes, under good control Patient is currently managed with: Currently taking: Metformin 1000 mg twice daily Regular Insulin: 25 units at breakfast; 23 units at lunch; 25 units at dinner NPH insulin: 25 units at breakfast; 60 units at bedtime Current Hemoglobin A1C Lab Results Component Value Date HGBA1C 6.5 03/29/2020 HGBA1C 7.2 (H) 08/30/2019 HGBA1C 8.4 03/09/2019 Weight trend: is stable Current diet: carb controlled Current exercise: gardening Current monitoring regimen: home blood tests - 4-5 times daily Home blood sugar records: See scanned records Fasting BG Pre-lunch BG Pre-supper BG: Bedtime BG: Any episodes of hypoglycemia? None NOTES: Retinopathy: Negative Exam within last 12 months: yes Date: 12/2019 Rn [facility] Stripper: Antwan Other Ophthalmologic Conditions: S/P Right cataract extraction with IOLI and S/P Left cataract extraction with IOLI Nephropathy: Positive Lab Results Component Value Date CREATININE 1.40 03/29/2020 EXTEGFR 36.7 03/29/2020 EXTEGFRAFAME 44.4 03/29/2020 Microlbumin/creat ratio: 43 on 03/29/2020 Is patient on MARYLOU inhibitor or angiotensin II receptor kenny? no Peripheral Neuropathy: Positive Reports bilateral numbness and tingling in feet mostly in left foot, also secondary to back issues. Autonomic Neuropathy: Negative Hypoglycemia unawareness. Senses low BG at 100 mg/dl with sweating and nausea Other: Hyperlipidemia: Positive Currently taking: rosuvastatin (Crestor), fenofibrate and fish oil. LFT's WNL 12/27/2019: Cholesterol 171, triglycerides 1072, HDL LDL unable to be calculated 03/30/2020: T cholesterol 187, triglycerides 1026 PLAN: CPM. Will be seeing PCP tomorrow who is managing. Lab Results Component Value Date AST 39 03/29/2020 ALT 24 03/29/2020 Lab Results Component Value Date EXTCHOL 187 03/29/2020 EXTTRIG 1,026 03/29/2020 EXTHDL 23 (L) 08/31/2018 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: Positive. Currently taking: furosemide (Lasix)-PRN, metoprolol (Lopressor, Toprol) triamterene/hydrochlorothiazide (HCTZ), BP: (!) 150/70 Cardiac: Positive. Experiencing chest pain Yes--recently improved . Experiencing shortness of breath Yes History of ETT 10/06/18--low exercise tolerance, inadequate for diagnosis and Cardiac [id number] moderate disease Follows routinely with: [facility] 12/18/18 Transthoracic echo. Conclusions: Normal LV size and systolic function LVEF 65-70% Normal RV size and function Normal diastolic function No hemodynamically significant valvular disease Vascular: Negative History of Edema left lower leg, chronic, mild. Feet: Last foot exam: 04/03/2020 Follows with Podiatry: No Gum Scoring Machine Operator: Dr Hammond in [place] also with office in [place] History of foot ulceration: No History of amputation: No Thyroid: Lab Results Component Value Date TSH 1.33 03/29/2020 Positive Hypothyroidism on levothyroxine 112 mcg/day. PLAN: CPM Other: Has hx. Of 3 back surgeries, By Dr Fields. Plan: 1. Rx changes: See below Regular Insulin: 22 units at breakfast; 22 units at lunch; 25 units at dinner NPH insulin: 22 units at breakfast; 60 units at bedtime Metformin 500 mg twice daily Patient's insulin doses were adjusted as above to address some occasional hypoglycemia in the latermorning/midday hours. He was also reminded that she should only be taking 500 mg twice daily of metformin given her mild CKD. We will continue to monitor her kidney function as it relates to this medication. She will be seeing her PCP tomorrow to address her hypertriglyceridemia. 2. Education: Reviewed ABCs of diabetes management (respective goals in parentheses): A1C (7.0-8.0), blood pressure (<130/80), and cholesterol (LDL <100). 3. Compliance at present is estimated to be good. Efforts to improve compliance (if necessary) willbe directed at dietary modifications: portion control and regular blood sugar monitorin times daily. 4. Follow up: 3 months 5. Record blood sugar readings as instructed. Call if BG consistently <70 or >250. [phone] Patient has been checking blood glucoses 4 times daily for the past 90 days. Patient needs to continue checking blood glucoses 4 times daily. Blood glucose readings are used to adjust medication or insulin doses for meals, monitor dietary compliance, and adjust for high or low blood glucoses by patient on a daily basis. Blood glucose readings are reviewed at office visits for adjustment in medication regimen and assistance with dietary management, and other self- management issues including exercise, etc. Prognosis: Good. Duration of need for diabetes testing equipment: Permanent #150 strips/month prescribed. 6. Bring blood sugar meter to follow up appointment. Orders Placed This Encounter Procedures Comprehensive Metabolic Panel Hemoglobin A1c Lipid Panel Electronically signed by: Reinier Wiseman PA-C, [facility] 04/05/20 9:02 AM documented in this encounter* Gonzalez Saunders MD - 07/26/2020 3:51 PM EST Telephone Visit Via Phone Call Patient ID: Carolyn Cintron is a 74 y.o. female on the phone for a follow up visit Patient phone : [phone] This visit has been fully reviewed with the patient and verbal consent has been obtained. HPI Patient states she appears to be doing reasonably well from a cardiovascular viewpoint. Her major complaint has been low back discomfort for which she is seeing a pain specialist in [place]. Patient states her shortness of breath and exercise intolerance has improved on her current medical regiment. Patient is not describing shortness of breath or chest discomfort with activities of daily living.No PND or orthopnea. No syncope. The following portions of the patient's history were reviewed and updated as appropriate: allergies, current medications, past medical history, past social history, past surgical history and problem list. Review of Systems Patient's Medications New Prescriptions No medications on file Previous Medications ASPIRIN 81 MG EC TABLET Take 81 mg by mouth daily. BLOOD SUGAR DIAGNOSTIC (GLUCOSE BLOOD) STRIPS Use to test 6 times per day. DG code E11.65. Use whatcoordinates with pt meter. . BLOOD SUGAR DIAGNOSTIC (ONETOUCH ULTRA BLUE TEST STRIP) STRIPS One touch ultra blue strips - use tocheck BG 6x a day.DX code E11.65 . BLOOD SUGAR DIAGNOSTIC (ONETOUCH VERIO TEST STRIPS) STRIPS USe to check BG 4x daily, DX code E11.65insulin used . BLOOD SUGAR DIAGNOSTIC (ONETOUCH VERIO) STRIPS Use as directed 6 times/day One Touch Verio strips . C/SOURCHERRY/CELERY/GRAPE SEED (TART MOY ORAL) Take by mouth daily . CHOLECALCIFEROL, VITAMIN D3, (VITAMIN D3) 1,000 UNIT CAPSULE Take 1,000 Units by mouth 2 (two) times a day . CYANOCOBALAMIN (VITAMIN B-12) 1000 MCG TABLET Take 1,000 mcg by mouth daily. FENOFIBRATE MICRONIZED (LOFIBRA) 134 MG CAPSULE Take 1 (one) capsule (134 mg total) by mouth daily Give with food . FLUTICASONE (FLONASE) 50 MCG/ACTUATION NASAL SPRAY Instill 1 spray into each nostril daily . FUROSEMIDE (LASIX) 20 MG TABLET Take 1 (one) tablet (20 mg total) by mouth every other day . KLOR-CON M20 20 MEQ TABLET Take 20 mEq by mouth every other day . LEVOTHYROXINE (SYNTHROID, LEVOTHROID) 112 MCG TABLET Take 112 mcg by mouth once daily . LISINOPRIL (PRINIVIL,ZESTRIL) 10 MG TABLET Take 10 mg by mouth daily . LORATADINE (CLARITIN LIQUI-GEL) 10 MG CAP Take by mouth daily . MAGNESIUM OXIDE ORAL Take 800 mg by mouth every other day . MONTELUKAST (SINGULAIR) 10 MG TABLET Take 10 mg by mouth daily . NOVOLIN N NPH U-100 INSULIN 100 UNIT/ML INJECTION Use as directed twice daily, approx 85 units daily (Needs Reli-on brand) . NOVOLIN R REGULAR U-100 INSULN 100 UNIT/ML INJECTION USE DIRECTED THREE TIMES DAILY INJECTING UPTO 80 UNITS PER DAY . OMEGA-3 FATTY ACIDS-FISH OIL ORAL Take 1 g by mouth 2 (two) times a day . PANTOPRAZOLE (PROTONIX) 40 MG TABLET Take 40 mg by mouth daily. ROSUVASTATIN (CRESTOR) 20 MG TABLET Take 20 mg by mouth daily. THERAPEUTIC MULTIVITAMIN (THERAGRAN) TABLET Take 1 tablet by mouth daily. TRAZODONE (DESYREL) 50 MG TABLET Take by mouth nightly as needed for sleep. Modified Medications Modified Medication Previous Medication METOPROLOL TARTRATE (LOPRESSOR) 50 MG TABLET metoprolol tartrate (LOPRESSOR) 50 MG tablet Take 1 (one) tablet (50 mg total) by mouth 2 (two) times a day . Take 50 mg by mouth 2 (two) times a day . Discontinued Medications ALLOPURINOL (ZYLOPRIM) 300 MG TABLET Take 300 mg by mouth daily . METFORMIN (GLUCOPHAGE) 500 MG TABLET Take 1 (one) tablet (500 mg total) by mouth 2 (two) times a day with meals . Assessment/Plan: Problem List Items Addressed This Visit Endocrine Diabetes (HCC) Recommend a targeted hemoglobin A1c of 7.0. Cardiovascular and Mediastinum CAD (coronary artery disease) - Primary Patient underwent left heart catheterization in April 2009 that demonstrated moderate disease in the mid circumflex and right coronary artery. Fractional flow reserve assessment across these segments did not suggest physiologic significance to angiographic disease identified. She had preserved LVsystolic function. 2D echocardiogram December 2016 demonstrated normal LV systolic function without significant valvular heart disease. She had normal right ventricular size and function. Myocardial perfusion study at that time did not demonstrate evidence for inducible ischemia. Updated 2D echocardiogram June 2020 with preserved LV systolic function and no significant valvular heart disease. Patient states shortness of breath and lower extremity edema have improved on her current medical regiment. Major complaint has been low back discomfort. I did recommend consideration for myocardial perfusion study but the patient would like to hold off at the present time and continue on her current medical regiment. Relevant Medications metoprolol tartrate (LOPRESSOR) 50 MG tablet 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 We have made no change in her current medical regiment. Relevant Medications metoprolol tartrate (LOPRESSOR) 50 MG tablet Other Mixed hyperlipidemia Patient is continuing with plaque stabilization therapy. Provider location: [facility] [address] (11) [facility] [address] [facility] [id number] Patient location: [address] [place] [id number] I have spent 11-20 minutes with the patient discussing current HPI. 12 minutes documented in this encounter* Genaro Carlson MD - 08/30/2019 9:56 AM EST Excision of 2 cysts from the perineum 08/23/2019 Pathology discussed with the patient, inclusion cysts. She has sore and thinks it is from the stitches, but otherwise has no complaints. The site closer to the rectum is already completely healed. The site closer to the vagina still has stitches in place but it is clearly open right underneath the stitches and not healing although it is closed deeply. Sutures removed. The area open is very shallow. I instructed the patient to be very careful with wiping. She is to call with any problems. documented in this encounter* Gonzalez Saunders MD - 06/16/2020 1:32 PM EST CARDIOLOGY PROGRESS NOTE [facility] [address] ([address]) [facility] [address] [facility] [id number] Physicians: Ryan Gomez MD (Family); No ref. provider found (Referring) Subjective: Carolyn Cintron is a 74 y.o. female seen in the office today for Follow-up (has some SOB, Denies Chest pain,pressure,Swelling ) . HPI: In the office today patient states over the past month has had worsening symptoms of exercise intolerance and lower extremity edema. Patient states her symptom complex began after discontinuation of her Maxide due to apparent worsening renal function and proteinuria. She was started on lisinopril 10 mg daily and Lasix 20 mg twice a week at that time. Patient has noticed lower extremity edema without PND or orthopnea. Weight up 5 pounds. Patient is not describing anginal sounding chest symptoms but notices exertional fatigue. No syncope. Assessment & Plan: CAD (coronary artery disease) Patient underwent left heart catheterization in April 2009 that demonstrated moderate disease in the mid circumflex and right coronary artery. Fractional flow reserve assessment across these segments did not suggest physiologic significance to angiographic disease identified. She had preserved LVsystolic function. 2D echocardiogram December 2016 demonstrated normal LV systolic function without significant valvular heart disease. She had normal right ventricular size and function. Myocardial perfusion study at that time did not demonstrate evidence for inducible ischemia. Patient describes exercise intolerance and lower extremity edema. Patient states symptom complex initiated after discontinuation of Maxide. Was started on lisinopril and Lasix 20 mg twice a week. Lower extremity edema noted on exam this morning. No anginal sounding chest symptoms. Have recommended intensification of her Lasix to 20 mg for the next 4 days then every other day. Tu obtain a Chem-7 in 1 week. Would like to update her 2D echocardiogram. We will follow-up with the patient in 1 month at which time additional recommendations may be forthcoming. 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 We have intensified her oral diuretic therapy. Mixed hyperlipidemia Patient is continuing with plaque stabilization therapy. Diabetes ([facility]) Recommend a targeted hemoglobin A1c of 7.0. EKG Interpretation: Follow Up Ordered: Return in about 1 month (around 07/17/2020). Patient's Medications New Prescriptions No medications on file Previous Medications ALLOPURINOL (ZYLOPRIM) 300 MG TABLET ASPIRIN 81 MG EC TABLET Take 81 mg by mouth daily. BLOOD SUGAR DIAGNOSTIC (GLUCOSE BLOOD) STRIPS Use to test 6 times per day. DG code E11.65. Use whatApartamaordinates with pt meter. . BLOOD SUGAR DIAGNOSTIC (ONETOUCH ULTRA BLUE TEST STRIP) STRIPS One touch ultra blue strips - use tocheck BG 6x a day.DX code E11.65 . BLOOD SUGAR DIAGNOSTIC (ONETOUCH VERIO TEST STRIPS) STRIPS USe to check BG 4x daily, DX code E11.65insulin used . BLOOD SUGAR DIAGNOSTIC (ONETOUCH VERIO) STRIPS Use as directed 6 times/day One Touch Verio strips . C/SOURCHERRY/CELERY/GRAPE SEED (TART MOY ORAL) Take by mouth . CHOLECALCIFEROL, VITAMIN D3, (VITAMIN D3) 1,000 UNIT CAPSULE Take 1,000 Units by mouth 2 (two) times a day . CYANOCOBALAMIN (VITAMIN B-12) 1000 MCG TABLET Take 1,000 mcg by mouth daily. FENOFIBRATE MICRONIZED (LOFIBRA) 134 MG CAPSULE Take 1 (one) capsule (134 mg total) by mouth daily Give with food . FISH OIL-OMEGA-3 FATTY ACIDS 300-1,000 MG CAPSULE Take 2 g by mouth daily. FLUTICASONE (FLONASE) 50 MCG/ACTUATION NASAL SPRAY Instill 1 spray into each nostril daily . KLOR-CON M20 20 MEQ TABLET Take 20 mEq by mouth daily . LEVOTHYROXINE (SYNTHROID, LEVOTHROID) 112 MCG TABLET LISINOPRIL (PRINIVIL,ZESTRIL) 10 MG TABLET Take 10 mg by mouth daily . LORATADINE (CLARITIN LIQUI-GEL) 10 MG CAP Take by mouth . MAGNESIUM OXIDE (MAG-OX) 400 MG TABLET Take 400 mg by mouth daily. METFORMIN (GLUCOPHAGE) 500 MG TABLET Take 1 (one) tablet (500 mg total) by mouth 2 (two) times a day with meals . METOPROLOL TARTRATE (LOPRESSOR) 50 MG TABLET Take 50 mg by mouth 2 (two) times a day . MONTELUKAST (SINGULAIR) 10 MG TABLET Take 10 mg by mouth daily . NOVOLIN N NPH U-100 INSULIN 100 UNIT/ML INJECTION Use as directed twice daily, approx 85 units daily (Needs Reli[employer] brand) . NOVOLIN R REGULAR U-100 INSULN 100 UNIT/ML INJECTION USE DIRECTED THREE TIMES DAILY INJECTING UPTO 80 UNITS PER DAY . PANTOPRAZOLE (PROTONIX) 40 MG TABLET Take 40 mg by mouth daily. ROSUVASTATIN (CRESTOR) 20 MG TABLET Take 20 mg by mouth daily. THERAPEUTIC MULTIVITAMIN (THERAGRAN) TABLET Take 1 tablet by mouth daily. TRAZODONE (DESYREL) 50 MG TABLET Take by mouth nightly as needed for sleep. Modified Medications Modified Medication Previous Medication FUROSEMIDE (LASIX) 20 MG TABLET furosemide (LASIX) 20 MG tablet Take 1 (one) tablet (20 mg total) by mouth every other day . Take 20 mg by mouth daily as needed . Discontinued Medications TRIAMTERENE-HYDROCHLOROTHIAZIDE (MAXZIDE) 75-50 MG PER TABLET Take 1 (one) tablet by mouth daily . Histories: The past history, social and family history, and allergies were reviewed and updated as needed. Review of Systems Constitution: Positive for malaise/fatigue. Negative for diaphoresis, weight gain and weight loss. HENT: Negative for hearing loss, nosebleeds and tinnitus. Eyes: Negative for blurred vision and visual disturbance. Cardiovascular: Positive for dyspnea on exertion and leg swelling. Negative for chest pain, claudication, cyanosis, irregular heartbeat, near-syncope, orthopnea, palpitations, paroxysmal nocturnal dyspnea and syncope. Respiratory: Negative for hemoptysis, shortness of breath and snoring. Endocrine: Negative for cold intolerance and heat intolerance. Hematologic/Lymphatic: Does not bruise/bleed easily. Skin: Negative for flushing, poor wound healing and rash. Musculoskeletal: Positive for arthritis, back pain and stiffness. Negative for muscle weakness, myalgias and neck pain. Gastrointestinal: Negative for bloating, abdominal pain, change in bowel habit, melena, nausea and vomiting. Genitourinary: Negative for decreased libido and hematuria. Neurological: Negative for loss of balance and numbness. Psychiatric/Behavioral: Negative for memory loss. The patient is not nervous/anxious. Objective: Physical Exam Constitutional: She is oriented to person, place, and time. She appears well- developed and well-nourished. HENT: Head: Normocephalic and atraumatic. Right Ear: External ear normal. Left Ear: External ear normal. Nose: Nose normal. Mouth/Throat: Oropharynx is clear and moist. Eyes: Pupils are equal, round, and reactive to light. Neck: Normal range of motion. Neck supple. No hepatojugular reflux and no JVD present. No muscular tenderness present. Carotid bruit is not present. No edema present. No thyroid mass present. Cardiovascular: Normal rate, regular rhythm, normal heart sounds and intact distal pulses. Physiologic S1 and S2. Soft systolic ejection murmur. S4 gallop. Jugular venous pressure does not appear elevated. Apical impulse is not displaced. Pulmonary/Chest: Effort normal and breath sounds normal. Diminished breath sounds throughout. No rales. Abdominal: Soft. Normal appearance and bowel sounds are normal. There is no abdominal tenderness. Musculoskeletal: Normal range of motion. Comments: Trace to 1+ pretibial edema Neurological: She is alert and oriented to person, place, and time. She has normal strength and normal reflexes. No cranial nerve deficit. Skin: Skin is warm and dry. No cyanosis. Nails show no clubbing. Psychiatric: She has a normal mood and affect. Her speech is normal and behavior is normal. I personally reviewed and verified the review of systems obtained by the senior medical transcriptionist. Vitals: Vitals: 06/16/20 0927 BP: 134/70 Pulse: (!) 57 SpO2: 97% Weight: 93 kg (205 lb) Height: 5' 3 1. CARRILLO (dyspnea on exertion) 2. Coronary artery disease involving lower sioux coronary artery of lower si[place] heart, angina presence unspecified 3. Essential hypertension 4. Mixed hyperlipidemia 5. Type 2 diabetes mellitus with other circulatory complication, with long-term current use of insulin (HCC) 6. Medication therapy changed Gonzalez Saunders MD documented in this encounter* Gonzalez Saunders MD - 08/11/2018 1:14 PM EST CARDIOLOGY PROGRESS NOTE [facility] [address] (11) [facility] [address] [facility] [id number] Physicians: Ryan Gomez MD (Family); No ref. provider found (Referring) Subjective: Carolyn Cintron is a 72 y.o. female seen in the office today for Follow-up (overdue 6 month- pt denies complaints ) . HPI: Patient presents in cardiovascular follow-up. In the office today she states she feels well. She offers no complaints. She has not been describing shortness of breath or chest discomfort with activities of daily living. 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 Patient offersno complaints of palpitations, near syncope or syncope. She had no congestive manifestations. Assessment & Plan: Hypercholesterolemia Patient should continue with plaque stabilization therapy. CAD (coronary artery disease) Patient underwent left heart catheterization in April 2009 that demonstrated moderate disease in the mid circumflex and right coronary artery. Fractional flow reserve assessment across these segments did not suggest physiologic significance to angiographic disease identified. She had preserved LVsystolic function. 2D echocardiogram December 2016 demonstrated normal LV systolic function without significant valvular heart disease. She had normal right ventricular size and function. Myocardial perfusion study at that time did not demonstrate evidence for inducible ischemia. Patient is not describing shortness of breath or chest discomfort with activities of daily living. We have recommended she continue on her current medical regimen. 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 Appears well-controlled on his current medical regimen we have made no changes. Diabetes (HCC) We have recommended a targeted hemoglobin A1c of 7.0. EKG Interpretation: Follow Up Ordered: Return in about 1 year (around 08/10/2019). Medication List Accurate as of 08/10/18 11:59 PM. If you have any questions, ask your nurse or doctor. CONTINUE taking these medications allopurinol 300 MG tablet Commonly known as: ZYLOPRIM aspirin 81 MG EC tablet fish oil-omega-3 fatty acids 300-1,000 mg capsule fluticasone 50 mcg/actuation nasal spray Commonly known as: FLONASE furosemide 20 MG tablet Commonly known as: LASIX insulin glargine 100 unit/mL injection Commonly known as: LANTUS KLOR-CON M20 20 MEQ tablet Generic drug: potassium chloride SA levothyroxine 100 MCG tablet Commonly known as: SYNTHROID, LEVOTHROID magnesium oxide 400 mg (241.3 mg magnesium) tablet Commonly known as: MAG-OX metFORMIN 1000 MG tablet Commonly known as: GLUCOPHAGE metoprolol tartrate 50 MG tablet Commonly known as: LOPRESSOR montelukast 10 mg tablet Commonly known as: SINGULAIR pantoprazole 40 MG tablet Commonly known as: PROTONIX rosuvastatin 20 MG tablet Commonly known as: CRESTOR therapeutic multivitamin tablet Commonly known as: THERAGRAN traZODone 50 MG tablet Commonly known as: DESYREL triamterene-hydrochlorothiazide 75-50 mg per tablet Commonly known as: MAXZIDE Take 1 (one) tablet by mouth daily . vitamin B-12 1000 MCG tablet Generic drug: cyanocobalamin VITAMIN D3 1,000 unit capsule Generic drug: cholecalciferol (vitamin D3) Where to Get Your Medications These medications were sent to [facility] [address] [place] [address] [address] [facility] [address] [id number] triamterene-hydrochlorothiazide 75-50 mg per tablet Histories: The past history, social and family history, and allergies were reviewed and updated as needed. Review of Systems Constitution: Negative for diaphoresis, malaise/fatigue, weight gain and weight loss. HENT: Negative for hearing loss, nosebleeds and tinnitus. Eyes: Negative for blurred vision and visual disturbance. Cardiovascular: Negative for chest pain, claudication, cyanosis, dyspnea on exertion, irregular heartbeat, leg swelling, near-syncope, orthopnea, palpitations, paroxysmal nocturnal dyspnea and syncope. Respiratory: Negative for hemoptysis, shortness of breath and snoring. Endocrine: Negative for cold intolerance and heat intolerance. Hematologic/Lymphatic: Does not bruise/bleed easily. Skin: Negative for flushing, poor wound healing and rash. Musculoskeletal: Positive for arthritis, back pain and stiffness. Negative for muscle weakness, myalgias and neck pain. Gastrointestinal: Negative for bloating, abdominal pain, change in bowel habit, melena, nausea and vomiting. Genitourinary: Negative for decreased libido and hematuria. Neurological: Negative for loss of balance and numbness. Psychiatric/Behavioral: Negative for memory loss. The patient is not nervous/anxious. Objective: Physical Exam Constitutional: She is oriented to person, place, and time. She appears well- developed and well-nourished. HENT: Head: Normocephalic and atraumatic. Right Ear: External ear normal. Left Ear: External ear normal. Nose: Nose normal. Mouth/Throat: Oropharynx is clear and moist. Eyes: Pupils are equal, round, and reactive to light. Neck: Normal range of motion. Neck supple. No hepatojugular reflux and no JVD present. No muscular tenderness present. Carotid bruit is not present. No edema present. No thyroid mass present. Cardiovascular: Normal rate, regular rhythm, normal heart sounds and intact distal pulses. Physiologic S1 and S2. No murmur. Jugular venous pressure does not appear elevated. Apical impulse is not displaced. Pulmonary/Chest: Effort normal and breath sounds normal. Clear to auscultation bilaterally. No rales or wheezes. Abdominal: Soft. Normal appearance and bowel sounds are normal. There is no tenderness. Musculoskeletal: Normal range of motion. No edema Neurological: She is alert and oriented to person, place, and time. She has normal strength and normal reflexes. No cranial nerve deficit. Skin: Skin is warm and dry. No cyanosis. Nails show no clubbing. Psychiatric: She has a normal mood and affect. Her speech is normal and behavior is normal. I personally reviewed and verified the review of systems obtained by the senior medical transcriptionist. Vitals: Vitals: 08/10/18 1422 BP: 129/71 Pulse: 64 SpO2: 96% Weight: 94.8 kg (209 lb) Height: 5' [address](R) 1. Hypercholesterolemia HYPERCHOLESTEROLEMIA 2. Coronary artery disease involving lower si[place] coronary artery of lower [place] heart without angina pectorisCORONARY ARTERIOSCLEROSIS IN MOHEGAN ARTERY 3. Essential hypertension ESSENTIAL HYPERTENSION 4. Type 2 diabetes mellitus with other circulatory complication, with long-term current use of insulin (HCC) TYPE 2 DIABETES MELLITUS Gonzalez Saunders MD in this encounter Instructions * Patient Instructions* GorDarcy zurita CNP - 01/06/2019 10:17 AM EDT Continue medications Call for concerns documented in this encounter* Patient Instructions* Anne Kamisnki CMA - 08/03/2019 11:47 AM EST HOLD ASPIRIN FOR 5 DAYS documented in this encounter* Patient Instructions* Anne Kaminski CMA - 08/23/2019 11:32 AM EST After bowel movement run water over the area Keep area clean One week follow up documented in this encounter Medications Administered Section Active Administered Medications - up to 3 most recent administrations Medication Order MAR Action Action Date Dose Rate Site fluorescein-benoxinate 0.25-0.4 % 1 Drop (FLURESS) 1 Drop, BOTH EYES, DIRECTED, Starting on Fri12/11/21 at 1000, Until Fri12/11/21 at 215, Administer for applanation tonometry. In the event of a Fluress shortage, administer Celia-Fluor 1 drop into both eyes as directed for applanation tonometry Given 12/11/2021 10:00 AM EDT 1 Drop tropicamide 1 % 1 Drop (MYDRIACYL) 1 Drop, BOTH EYES, DIRECTED, Starting on Fri12/11/21 at 1000, Until Fri12/11/21 at 2159, Administer for dilation Given 12/11/2021 10:00 AM EDT 1 Drop Active Administered Medications - up to 3 most recent administrations Medication Order MAR Action Action Date Dose Rate Site PHENYLephrine 2.5 % 1 Drop (AK-DILATE, ADELINA-SYNEPHRINE) 1 Drop, BOTH EYES, DIRECTED, Starting on Fri12/18/22 at 1100, Until Fri12/18/22 at 2259, Administer for dilation PROTECT FROM LIGHT Given 12/18/2022 11:00 AM EDT 1 Drop tropicamide 1 % 1 Drop (MYDRIACYL) 1 Drop, BOTH EYES, DIRECTED, Starting on Fri12/18/22 at 1100, Until Fri12/18/22 at 2259, Administer for dilation Given 12/18/2022 11:00 AM EDT 1 Drop Chief Complaint and Reason for Visit Chief Complaint 3 M FU Reason for Visit Controlled type 2 di abetes mellitus, with long-term current use of insulin Hyperlipidemia due to type 2 diabetes mellitus 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, essential Hypothyroidism (acquired) Kidney disease, chronic, stage III (GFR 30-59 ml/min) Polyneuropathy due to type 2 diabetes mellitus Chief 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 7 WK FOLLOW UP URINARY DRIBBLING Reason for Visit Controlled type 2 di abetes mellitus, with long-term current use of insulin Hyperlipidemia due to type 2 diabetes mellitus 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, essential Hypothyroidism (acquired) Kidney disease, chronic, stage III (GFR 30-59 ml/min) Obesity Polyneuropathy due to type 2 diabetes mellitus Hypertriglyceridemia Controlled type 2 diabetes mellitus, with long-term current use of insulin 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, essential Hypothyroidism (acquired) Kidney disease, chronic, stage III (GFR 30-59 ml/min) Establishing care with new doctor, encounter for Gout Chronic low back pain Chronic abdominal pain Anxiety and depression Hypertriglyceridemia Controlled type 2 diabetes mellitus, with long-term current use of insulin 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, essential Hypothyroidism (acquired) Kidney disease, chronic, stage III (GFR 30-59 ml/min) Left leg swelling Gout Chronic low back pain Chronic abdominal pain Anxiety and depression Chief Complaint Admit Date 3 M FU July 15, 2024 12 :43pm DISCUSS BONE DENSITY September 20, 2024 1: 18pm RIGHT SHOULDER September 27, 2024 1:1 0pm Room 1 September 27, 2024 1:2 8pm 3 M FU October 13, 2024 1:14 pm Reason for Visit Admit Date Hypertriglyceridemia July 15, 2024 1 2:43pm Controlled type 2 diabetes m ellitus, with long-term current use of insulin July 15, 2024 12:43pm 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, essential July 15 12:43pm Hypothyroidism (acquired) July 15, 025 12:43pm Kidney disease, chronic, stage III (GFR 30-59 ml/min) July 15, 2024 12:43pm C. difficile colitis July 15, 2024 1 2:43pm Femur fracture July 15, 2024 12 :43pm Chronic low back pain July 15, 2024 12:43pm Osteoporosis July 15, 2024 12 :43pm Anxiety and depression July 15, 2024 12:43pm Numbness and tingling in right hand Michael hoffmann 2024 12:43pm Hypertriglyceridemia September 20, 2024 1: 18pm Controlled type 2 diabetes koko bloom, with long-term current use of insulin September 20, 2024 1:18pm 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, essential September 20, 2024 1:18pm Hypothyroidism (acquired) September 20 1:18pm Kidney disease, chronic, stage III (GFR 30-59 ml/min) September 20, 2024 1:18pm Chronic low back pain September 20, 2024 1 :18pm Osteoporosis September 20, 2024 1:1 8pm Anxiety and depression September 20, 2024 1:18pm Chronic right shoulder pain September 20, 2024 1:18pm Numbness and tingling in right hand Tony sharif 2024 1:18pm Right shoulder pain September 27, 2024 1:1 0pm Secondary osteoarthritis, right shoulder September 27, 2024 1:10pm Hypertriglyceridemia October 13, 2024 1:1 4pm Controlled type 2 diabetes koko bloom, with long-term current use of insulin October 13, 2024 1:14pm 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, essential October 13, 2024 1:14pm Hypothyroidism (acquired) October 13 1:14pm Kidney disease, chronic, stage III (GFR 30-59 ml/min) October 13, 2024 1:14pm Chronic low back pain October 13, 2024 1: 14pm Osteoporosis October 13, 2024 1:14 pm Chronic insomnia October 13, 2024 1:14 pm Anxiety and depression October 13, 2024 1 :14pm Chronic right shoulder pain October 13 025 1:14pm GERD (gastroesophageal reflux disease) A pril 2024 1:14pm Chief Complaint Admit Date 3 M FU July 15, 2024 12 :43pm DISCUSS BONE DENSITY September 20, 2024 1: 18pm RIGHT SHOULDER September 27, 2024 1:1 0pm Room 1 September 27, 2024 1:2 8pm 3 M FU October 13, 2024 1:14 pm RT SHOULDER PAIN/OA, PREOP RTSA/BLUEPRIN T CUTS October 20, 2024 6:18pm Chief Complaint Admit Date DISCUSS BONE DENSITY September 20, 2024 1: 18pm RIGHT SHOULDER September 27, 2024 1:1 0pm Room 1 September 27, 2024 1:2 8pm 3 M FU October 13, 2024 1:14 pm RT SHOULDER PAIN/OA, PREOP RTSA/BLUEPRIN T CUTS October 20, 2024 6:18pm HX RT SHOULDER FRACTURE, PAIN October 1:03pm 4 M FU November 02, 2024 11: 15am RIGHT SHOULDER November 08, 2024 1:09pm ACUTE SURG [facility] M ay 2024 12:44pm Reason for Visit Admit Date Hypertriglyceridemia September 20, 2024 1: 18pm Controlled type 2 diabetes koko bloom, with long-term current use of insulin September 20, 2024 1:18pm 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, essential September 20, 2024 1:18pm Hypothyroidism (acquired) September 20 1:18pm Kidney disease, chronic, stage III (GFR 30-59 ml/min) September 20, 2024 1:18pm Chronic low back pain September 20, 2024 1 :18pm Osteoporosis September 20, 2024 1:1 8pm Anxiety and depression September 20, 2024 1:18pm Chronic right shoulder pain September 20, 2024 1:18pm Numbness and tingling in right hand Tony h 2024 1:18pm Right shoulder pain September 27, 2024 1:1 0pm Secondary osteoarthritis, right shoulder September 27, 2024 1:10pm Hypertriglyceridemia October 13, 2024 1:1 4pm Controlled type 2 diabetes koko bloom, with long-term current use of insulin October 13, 2024 1:14pm 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, essential October 13, 2024 1:14pm Hypothyroidism (acquired) October 13 1:14pm Kidney disease, chronic, stage III (GFR 30-59 ml/min) October 13, 2024 1:14pm Chronic low back pain October 13, 2024 1: 14pm Osteoporosis October 13, 2024 1:14 pm Chronic insomnia October 13, 2024 1:14 pm Anxiety and depression October 13, 2024 1 :14pm Chronic right shoulder pain October 13, 1:14pm GERD (gastroesophageal reflux disease) A pril 2024 1:14pm Controlled type 2 diabetes koko bloom, with long-term current use of insulin November 02, 2024 11:15am Hyperlipidemia due to type 2 diabetes me llitus November 02, 2024 11:15am 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, essential November 02, 2024 11:15am Hypothyroidism (acquired) November 02 11:15am Kidney disease, chronic, stage III (GFR 30-59 ml/min) November 02, 2024 11:15am Obesity November 02, 2024 11: 15am Polyneuropathy due to type 2 diabetes me llitus November 02, 2024 11:15am Right shoulder pain November 08, 2024 1:09pm Secondary osteoarthritis, right shoulder November 08, 2024 1:09pm Chief Complaint Admit Date DISCUSS BONE DENSITY September 20, 2024 1: 18pm RIGHT SHOULDER September 27, 2024 1:1 0pm Room 1 September 27, 2024 1:2 8pm 3 M FU October 13, 2024 1:14 pm RT SHOULDER PAIN/OA, PREOP RTSA/BLUEPRIN T CUTS October 20, 2024 6:18pm HX RT SHOULDER FRACTURE, PAIN October 1:03pm 4 M FU November 02, 2024 11: 15am RIGHT SHOULDER November 08, 2024 1:09pm ACUTE SURG [facility] M ay 2024 12:44pm 1 W FU December 10, 2024 9:50a m Reason for Visit Admit Date Hypertriglyceridemia September 20, 2024 1: 18pm Controlled type 2 diabetes koko bloom, with long-term current use of insulin September 20, 2024 1:18pm 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, essential September 20, 2024 1:18pm Hypothyroidism (acquired) September 20 1:18pm Kidney disease, chronic, stage III (GFR 30-59 ml/min) September 20, 2024 1:18pm Chronic low back pain September 20, 2024 1 :18pm Osteoporosis September 20, 2024 1:1 8pm Anxiety and depression September 20, 2024 1:18pm Chronic right shoulder pain September 20, 2024 1:18pm Numbness and tingling in right hand Tony h 2024 1:18pm Right shoulder pain September 27, 2024 1:1 0pm Secondary osteoarthritis, right shoulder September 27, 2024 1:10pm Hypertriglyceridemia October 13, 2024 1:1 4pm Controlled type 2 diabetes koko bloom, with long-term current use of insulin October 13, 2024 1:14pm 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, essential October 13, 2024 1:14pm Hypothyroidism (acquired) October 13 1:14pm Kidney disease, chronic, stage III (GFR 30-59 ml/min) October 13, 2024 1:14pm Chronic low back pain October 13, 2024 1: 14pm Osteoporosis October 13, 2024 1:14 pm Chronic insomnia October 13, 2024 1:14 pm Anxiety and depression October 13, 2024 1 :14pm Chronic right shoulder pain October 13 1:14pm GERD (gastroesophageal reflux disease) A pril 2024 1:14pm Controlled type 2 diabetes koko bloom, with long-term current use of insulin November 02, 2024 11:15am Hyperlipidemia due to type 2 diabetes me llitus November 02, 2024 11:15am 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, essential November 02, 2024 11:15am Hypothyroidism (acquired) November 02 11:15am Kidney disease, chronic, stage III (GFR 30-59 ml/min) November 02, 2024 11:15am Obesity November 02, 2024 11: 15am Polyneuropathy due to type 2 diabetes me llitus November 02, 2024 11:15am Right shoulder pain November 08, 2024 1:09pm Secondary osteoarthritis, right shoulder November 08, 2024 1:09pm Acute upper respiratory infection December 102024 9:50am Chief Complaint Admit Date DISCUSS BONE DENSITY September 20, 2024 1: 18pm RIGHT SHOULDER September 27, 2024 1:1 0pm Room 1 September 27, 2024 1:2 8pm 3 M FU October 13, 2024 1:14 pm RT SHOULDER PAIN/OA, PREOP RTSA/BLUEPRIN T CUTS October 20, 2024 6:18pm HX RT SHOULDER FRACTURE, PAIN October 1:03pm 4 M FU November 02, 2024 11: 15am RIGHT SHOULDER November 08, 2024 1:09pm [facility] 2024 12:44pm 1 W FU December 10, 2024 9:50a m 1 WK December 16, 2024 12:0 1pm Reason for Visit Admit Date Hypertriglyceridemia September 20, 2024 1: 18pm Controlled type 2 diabetes koko bloom, with long-term current use of insulin September 20, 2024 1:18pm 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, essential September 20, 2024 1:18pm Hypothyroidism (acquired) September 20 1:18pm Kidney disease, chronic, stage III (GFR 30-59 ml/min) September 20, 2024 1:18pm Chronic low back pain September 20, 2024 1 :18pm Osteoporosis September 20, 2024 1:1 8pm Anxiety and depression September 20, 2024 1:18pm Chronic right shoulder pain September 20, 2024 1:18pm Numbness and tingling in right hand Tony h 2024 1:18pm Right shoulder pain September 27, 2024 1:1 0pm Secondary osteoarthritis, right shoulder September 27, 2024 1:10pm Hypertriglyceridemia October 13, 2024 1:1 4pm Controlled type 2 diabetes koko bloom, with long-term current use of insulin October 13, 2024 1:14pm 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, essential October 13, 2024 1:14pm Hypothyroidism (acquired) October 13 1:14pm Kidney disease, chronic, stage III (GFR 30-59 ml/min) October 13, 2024 1:14pm Chronic low back pain October 13, 2024 1: 14pm Osteoporosis October 13, 2024 1:14 pm Chronic insomnia October 13, 2024 1:14 pm Anxiety and depression October 13, 2024 1 :14pm Chronic right shoulder pain October 13 1:14pm GERD (gastroesophageal reflux disease) A pril 2024 1:14pm Controlled type 2 diabetes koko bloom, with long-term current use of insulin November 02, 2024 11:15am Hyperlipidemia due to type 2 diabetes me llitus November 02, 2024 11:15am 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, essential November 02, 2024 11:15am Hypothyroidism (acquired) November 02 11:15am Kidney disease, chronic, stage III (GFR 30-59 ml/min) November 02, 2024 11:15am Obesity November 02, 2024 11: 15am Polyneuropathy due to type 2 diabetes me llitus November 02, 2024 11:15am Right shoulder pain November 08, 2024 1:09pm Secondary osteoarthritis, right shoulder November 08, 2024 1:09pm Acute upper respiratory infection December 022024 12:44pm Acute upper respiratory infection December [id number] 9:50am Additional Source Comments Assessment & Plan Note - Gonzalez Saunders MD - 10/10/2017 10:41 AM EDTAssessment & Plan Note - Gonzalez Saunders MD - 10/10/2017 10:41 AM EDT Miscellaneous Notes (unrecog nized section and content) Associated Problem(s): Diabetes (HCC) We have recommended a targeted hemoglobin A1c of 7.0. Associated Problem(s): 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 Appears well-controlled on his current medical regimen we have made no changes. Associated Problem(s): CAD (coronary artery disease) Patient underwent left heart catheterization in April 2009 that demonstrated moderate disease in the mid circumflex and right coronary artery. Fractional flow reserve assessment across these segments did not suggest physiologic significance to angiographic disease identified. She had preserved LV systolic function. 2D echocardiogram December 2016 demonstrated normal LV systolic function without significant valvular heart disease. She had normal right ventricular size and function. Myocardial perfusion study at that time did not demonstrate evidence for inducible ischemia. Patient is not describing shortness of breath or chest discomfort with activities of daily living. We have recommended she continue on her current medical regimen. Associated Problem(s): Hypercholesterolemia Patient should continue with plaque stabilization therapy.in this encounter Associated Problem(s): Hypercholesterolemia Currently on rosuvastatin 20 mg daily. High intensity statin therapy. Continue diet exercise with weight loss Associated Problem(s): 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 Blood pressure controlled in the office today. Continue same medications Associated Problem(s): CAD (coronary artery disease) Her stress test was suboptimal because of poor exercise tolerance. She has been out in [place] climbing and walking without provocation of symptoms. Echocardiogram showed normal structure and normal EF. We will continue risk factor reduction with diet and exercise. She was instructed to call us if she has recurrence of symptoms documented in this encounter Associated Problem(s): Diabetes ([facility]) Recommend a targeted hemoglobin A1c of 7.0. Associated Problem(s): Mixed hyperlipidemia Patient is continuing with plaque stabilization therapy. Associated Problem(s): 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 We have made no change in her current medical regiment. Associated Problem(s): CAD (coronary artery disease) Patient underwent left heart catheterization in April 2009 that demonstrated moderate disease in the mid circumflex and right coronary artery. Fractional flow reserve assessment across these segments did not suggest physiologic significance to angiographic disease identified. She had preserved LV systolic function. 2D echocardiogram December 2016 demonstrated normal LV systolic function without significant valvular heart disease. She had normal right ventricular size and function. Myocardial perfusion study at that time did not demonstrate evidence for inducible ischemia. Updated 2D echocardiogram June 2020 with preserved LV systolic function and no significant valvular heart disease. Patient states shortness of breath and lower extremity edema have improved on her current medical regiment. Major complaint has been low back discomfort. I did recommend consideration for myocardial perfusion study but the patient would like to hold off at the present time and continue on her current medical regiment. documented in this encounter Associated Problem(s): Diabetes ([facility]) Recommend a targeted hemoglobin A1c of 7.0. Associated Problem(s): Mixed hyperlipidemia Patient is continuing with plaque stabilization therapy. Associated Problem(s): 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 We have intensified her oral diuretic therapy. Associated Problem(s): CAD (coronary artery disease) Patient underwent left heart catheterization in April 2009 that demonstrated moderate disease in the mid circumflex and right coronary artery. Fractional flow reserve assessment across these segments did not suggest physiologic significance to angiographic disease identified. She had preserved LV systolic function. 2D echocardiogram December 2016 demonstrated normal LV systolic function without significant valvular heart disease. She had normal right ventricular size and function. Myocardial perfusion study at that time did not demonstrate evidence for inducible ischemia. Patient describes exercise intolerance and lower extremity edema. Patient states symptom complex initiated after discontinuation of Maxide. Was started on lisinopril and Lasix 20 mg twice a week. Lower extremity edema noted on exam this morning. No anginal sounding chest symptoms. Have recommended intensification of her Lasix to 20 mg for the next 4 days then every other day. We will obtain a Chem-7 in 1 week. Would like to update her 2D echocardiogram. We will follow-up with the patient in 1 month at which time additional recommendations may be forthcoming. documented in this encounter Associated Problem(s): Diabetes (HCC) We have recommended a targeted hemoglobin A1c of 7.0. Associated Problem(s): 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 Appears well-controlled on his current medical regimen we have made no changes. Associated Problem(s): CAD (coronary artery disease) Patient underwent left heart catheterization in April 2009 that demonstrated moderate disease in the mid circumflex and right coronary artery. Fractional flow reserve assessment across these segments did not suggest physiologic significance to angiographic disease identified. She had preserved LV systolic function. 2D echocardiogram December 2016 demonstrated normal LV systolic function without significant valvular heart disease. She had normal right ventricular size and function. Myocardial perfusion study at that time did not demonstrate evidence for inducible ischemia. Patient is not describing shortness of breath or chest discomfort with activities of daily living. We have recommended she continue on her current medical regimen. Associated Problem(s): Hypercholesterolemia Patient should continue with plaque stabilization therapy. in this encounter INFORMATION SOURCE (unrecogn ized section and content) DATE CREATED AUTHOR 09/11/2018 [facility] DATE CREATED AUTHOR AUTHOR'S ORGANIZ ATION 03/05/2019 [facility] DATE CREATED AUTHOR AUTHOR'S ORGANIZ ATION 03/17/2021 Ayaz Jaegersumi [facility] DATE CREATED AUTHOR AUTHOR'S ORGANIZ ATION 06/08/2022 [facility] DATE CREATED AUTHOR AUTHOR'S ORGANIZ ATION 09/21/2022 [facility] DATE CREATED AUTHOR AUTHOR'S ORGANIZ ATION 12/27/2023 [facility] DATE CREATED AUTHOR AUTHOR'S ORGANIZ ATION 03/28/2024 [facility] DATE CREATED AUTHOR AUTHOR'S ORGANIZ ATION 04/14/2024 [facility] DATE CREATED AUTHOR AUTHOR'S ORGANIZ ATION 06/10/2024 [facility] DATE CREATED AUTHOR AUTHOR'S ORGANIZ ATION 09/19/2024 [facility] DATE CREATED AUTHOR AUTHOR'S ORGANIZ ATION 12/20/2024 [facility] DATE CREATED AUTHOR AUTHOR'S ORGANIZ ATION 12/27/2024 [facility] DATE CREATED AUTHOR AUTHOR'S ORGANIZ ATION 12/28/2024 [facility] Reason for Visit (unrecogniz ed section and content) Status Reason Specialty Diagnoses / Procedures Referre d By Contact Referred To Contact Closed Cardiology Diagnoses Chest pain, unspecified type Coronary artery disease, angina presence unspecified, unspecified vessel or lesion type, unspecified whether lower [place] or transplanted heart Procedures Stress test only, exercise Ryan Gomez MD [address] [place] [address] Reason Comments Diabetes Mellitus Status Reason Specialty Diagnoses / Procedures Referred By Contact Referred To Contact Closed Specialty Services Required/Patient 's Best Interest Endocrinology Diagnoses Poorly controlled type 2 diabetes mellitus (HCC) Gerri Mann, [employer] [address] [place] [address] Denisse Richardson MD [address] [address] Status Reason Specialty Diagnoses / Procedures Referre d By Contact Referred To Contact Closed Cardiology Diagnoses Dyspnea on exertion Procedures Echocardiogram complete w contrast Echocardiogram complete Denisse Richardson MD [address] [facility] [address] [place] [address] Reason Comments Follow-up CARRILLO/review radha - gerri orellana denies any concerns today Reason Comments Diabetes Mellitus Status Reason Specialty Diagnoses / Procedures Referred By Contact Referred To Contact Closed General Surgery Diagnoses Sebaceous cyst Rectal cyst Ryan Gomez MD [address] [place] [address] [facility] [address] [facility], 5th [place] [address] Reason Comments Procedure excision sebaceous c yst near the rectum Reason Comments Post-op one week recheck (ex cision by the rectum) Status Reason Specialty Diagnoses / Procedures Referre d By Contact Referred To Contact Closed Cardiology Diagnoses CARRILLO (dyspnea on exertion) Procedures Echocardiogram complete Gonzalez Saunders MD [address] [place] [address] Reason Comments Follow-up has some SOB, Denies Chest pain,pressure,Swelling Reason Comments Follow-up overdue 6 month- pt denies complaints Reason Onset Date Comments Medication Refill 02/27/2021 Reason Comments Follow-up 6 mo overdue Specialty Diagnoses / Procedures Referred By Contac t Referred To Contact Infusion Therapy Diagnoses COVID-19 Ryan Gomez MD [address] [place] [address] Specialty Infusn [address] [place] [address] Referral ID Status Reason Start Date Expiration Date Visits Re quested Visits Authorized [id number] Closed 05/25/2021 05/25/2022 1 1 Reason Onset Date Comments Medication Refill 09/06/2021 Reason Onset Date Comments Medication Refill 09/07/2021 Reason Onset Date Comments Medication Refill 11/19/2021 Reason Comments Medication Refill Reason Comments Diabetes Reason Onset Date Comments Medication Refill 05/27/2022 Reason Onset Date Comments Medication Refill 10/28/2022 Reason Onset Date Comments Medication Refill 11/04/2022 Reason Comments Swelling Around Right Eye Specialty Diagnoses / Procedures Referred By Contac t Referred To Contact Referral ID Status Reason Start Date Expiration Date Visits Re quested Visits Authorized [id number] 1 1 Reason Comments Follow-up Post hosp rt humerus 1 mo fu Reason Comments Follow-up Overdue/ Dr. Saunders - no complaints Reason Comments Follow-up Fracture Reason Onset Date Comments Medication Refill 06/08/2024 Reason Comments Fall Patient presents to ed via ems for fall at home. Patient transfer from [facility] for right femur fracture. Patient fell down 3 steps. Patient states she did hit her head, denies LOC, denies blood thinner use. Patient A&OX4. Patient was given 1mg dilaudid prior to transport from [place]. Patient c/o right leg pain and left foot pain. Specialty Diagnoses / Procedures Referred By Rebecca nicholas Referred To Contact Diagnoses Closed fracture of distal end of right femur, unspecified fracture morphology, initial encounter ([facility]) fracture Procedures .. Christy Snyder, DO [address] [place] [address] Phone: tel: fax: [facility] [address] [address] Phone: tel: Referral ID Status Reason Start Date Expiration Date Visits Re quested Visits Authorized [id number] 1 1 Reason Onset Date Comments Care Coordination 06/24/2024 Reason Comments Injury Reason Comments Post-op R retrograde femoral nail Reason Comments Follow-up Pt states no new con cerns today. Nicole Uribe RN - 10/06/2018 11:04 AM EDT Nursing Notes (unrecognized section and content) Resting ECG sinus rhythm w/ 1st degree AVB.Unable to tolerate exercise due to fatigue and dyspnea. in this encounter Care Teams (unrecognized sec tion and content) Public Works Manager Relationship Specialty Start Date End Date Ryan Gomez MD [address] [place] [address] PCP - General Family Medicine 06/21/15 Ryan Gomez MD [address] [place] [address] Referring Physician Family Medicine 07/29/19 Public Works Manager Relationship Specialty Start Date End Date Ryan Gomez MD [address] [place] [address] PCP - General Family Medicine 06/21/15 Ryan Gomez MD [address] [place] [address] Referring Physician Family Medicine 07/29/19 Public Works Manager Relationship Specialty Start Date End Date Ryan Gomez MD [address] [place] [address] PCP - General Family Medicine 06/21/15 Ryan Gomez MD [address] [place] [address] Referring Physician Family Medicine 07/29/19 Public Works Manager Relationship Specialty Start Date End Date Ryan Gomez MD [address] [place] [address] PCP - General Family Medicine 06/21/15 Ryan Gomez MD [address] [place] [address] Referring Physician Family Medicine 07/29/19 Public Works Manager Relationship Specialty Start Date End Date Ryan Gomez MD [address] [place] [address] PCP - General Family Medicine 06/21/15 Ryan Gomez MD [address] [place] [address] Referring Physician Family Medicine 07/29/19 Public Works Manager Relationship Specialty Start Date End Date Ryan Gomez MD [address] [place] [address] PCP - General Family Medicine 06/21/15 Ryan Gomez MD [address] [place] [address] Referring Physician Family Medicine 07/29/19 Public Works Manager Relationship Specialty Start Date End Date Ryan Gomze MD [address] [place] [address] PCP - General Family Medicine 06/21/15 Ryan Gomez MD [address] [place] [address] Referring Physician Family Medicine 07/29/19 Public Works Manager Relationship Specialty Start Date End Date Ryan Gomez PCP - General Family Practice 01/10/12 Public Works Manager Relationship Specialty Start Date End Date Ryan Gomez MD [address] [place] [address] PCP - General Family Medicine 06/21/15 Ryan Gomez MD [address] [place] [address] Referring Physician Family Medicine 07/29/19 Public Works Manager Relationship Specialty Start Date End Date Ryan Gomez MD [address] [place] [address] PCP - General Family Medicine 06/21/15 Ryan Gomez MD [address] [place] [address] Referring Physician Family Medicine 07/29/19 Public Works Manager Relationship Specialty Start Date End Date Ryan Gomez MD [address] [place] [address] PCP - General Family Medicine 06/21/15 Ryan Gomez MD [address] [place] [address] Referring Physician Family Medicine 07/29/19 Public Works Manager Relationship Specialty Start Date End Date Ryan Gomez MD [address] [place] [address] PCP - General Family Medicine 06/21/15 Ryan Gomez MD [address] [place] [address] Referring Physician Family Medicine 07/29/19 Public Works Manager Relationship Specialty Start Date End Date Ryan Gomez MD [address] [place] [address] PCP - General Family Medicine 06/21/15 Ryan Gomez MD [address] [place] [address] Referring Physician Family Medicine 07/29/19 Public Works Manager Relationship Specialty Start Date End Date Ryan Gomez PCP - General Family Medicine 01/10/12 Team Status: Active Member Role Status Dates Dr. Ryan Gomez MD Family Provider Active Dr. Ryan Gomez MD Primary Care Provider Active Team Status: Inactive Member Role Status Dates Dr. Rayn Gomez MD Primary Care Provider, Referred [facility] g Provider Active Dr. Yariel Florez MD Attending Provider Active Team Status: Inactive Member Role Status Dates Dr. Ryan Gomez MD Primary Care Provider Active Dr. Leonie Loja MD Attending Provider, Referring Pr ovider Active Public Works Manager Relationship Specialty Start Date End Date Ryan Gomez MD [address] [place] [address] PCP - General Family Medicine 06/21/15 Ryan Gomez MD [address] [place] [address] Referring Physician Family Medicine 07/29/19 Public Works Manager Relationship Specialty Start Date End Date Ryan Gomez MD PCP - General Family Medicine 01/10/12 Public Works Manager Relationship Specialty Start Date End Date Ryan Gomez MD [address] [place] [address] PCP - General Family Medicine 06/21/15 Ryan Gomez MD [address] [place] [address] Referring Physician Family Medicine 07/29/19 Team Status: Active Member Role Status Dates Dr. Ryan Gomez MD Family Provider Active Dr. Ramón Coulter MD Primary Care Provider Active Team Status: Inactive Member Role Status Dates Dr. Ryan Gomez MD Primary Care Provider, Referrin g Provider Active Dr. Ramón Coulter MD Attending Provider Active Team Status: Inactive Member Role Status Dates Dr. Ramón Coulter MD Primary Care Pro vider, Attending Provider, Referring Provider Active Team Status: Active Member Role Status Dates Dr. Ramón Coulter MD Primary Care Pro vider, Attending Provider, Referring Provider Active Team Status: Active Member Role Status Dates Dr. Ramón Coulter MD Primary Care Provider Active Dr. Leonie Loja MD Attending Provider, Referring Pr ovider Active Team Status: Inactive Member Role Status Dates Dr. Ramón Coulter MD Primary Care Provider Active Dr. Leonie Loja MD Attending Provider, Referring Pr ovider Active Public Works Manager Relationship Specialty Start Date End Date Ramón Coulter MD [address] [place] [address] PCP - General Internal Medicine 10/17/23 Public Works Manager Relationship Specialty Start Date End Date Ramón Coulter MD [address] [place] [address] PCP - General Internal Medicine 03/26/24 Ryan Gomez MD [address] [place] [address] Referring Physician Family Medicine 07/29/19 Public Works Manager Relationship Specialty Start Date End Date Ramón Coulter MD [address] [place] [address] PCP - General Internal Medicine 03/26/24 Ryan Gomez MD [address] [place] [address] Referring Physician Family Medicine 07/29/19 Public Works Manager Relationship Specialty Start Date End Date Ramón Coulter MD [address] [place] [address] PCP - General Internal Medicine 03/26/24 Ryan Gomez MD [address] [place] [address] Referring Physician Family Medicine 07/29/19 Public Works Manager Relationship Specialty Start Date End Date Ramón Coulter MD [address] [place] [address] PCP - General Internal Medicine 03/26/24 Ryan Gomez MD [address] [place] [address] Referring Physician Family Medicine 07/29/19 Public Works Manager Relationship Specialty Start Date End Date Ramón Coulter MD [address] [place] [address] PCP - General Internal Medicine 03/26/24 Ryan Gomez MD [address] [place], [facility] Referring Physician Family Medicine 07/29/19 Public Works Manager Relationship Specialty Start Date End Date Ramón Coulter MD [address] [place] [address] PCP - General Internal Medicine 03/26/24 Ryan Gomez MD [address] [place] [address] Referring Physician Family Medicine 07/29/19 Public Works Manager Relationship Specialty Start Date End Date Ramón Coulter MD [address] [place] [address] PCP - General Internal Medicine 03/26/24 Ryan Gomez MD [address] [place] [address] Referring Physician Family Medicine 07/29/19 Public Works Manager Relationship Specialty Start Date End Date Ramón Coulter MD [address] [place] [address] PCP - General Internal Medicine 03/26/24 Ryan Gomez MD [address] [place] [address] Referring Physician Family Medicine 07/29/19 Public Works Manager Relationship Specialty Start Date End Date Ryan Gomez MD [address] [place] [address] PCP - General Family Medicine 06/21/15 03/25/24 Ramón Coulter MD [address] [place] [address] PCP - General Internal Medicine 03/26/24 Ryan Gomez MD [address] [place] [address] Referring Physician Family Medicine 07/29/19 Public Works Manager Relationship Specialty Start Date End Date Ramón Coulter MD [address] [place] [address] PCP - General Internal Medicine 03/26/24 Ryan Gomez MD [address] [place] [address] Referring Physician Family Medicine 07/29/19 Public Works Manager Relationship Specialty Start Date End Date Ramón Coulter MD [address] [place] [address] PCP - General Internal Medicine 03/26/24 Ryan Gomez MD [address] [place] [address] Referring Physician Family Medicine 07/29/19 Public Works Manager Relationship Specialty Start Date End Date Ramón Coulter MD [address] [place] [address] PCP - General Internal Medicine 03/26/24 Ryan Gomez MD [address] [place] [address] Referring Physician Family Medicine 07/29/19 Public Works Manager Relationship Specialty Start Date End Date Ramón Coulter MD [address] [place] [address] PCP - General Internal Medicine 09/16/24 Team Status: Active Member Role Status Dates Dr. Ramón Coulter MD Primary Care Provider Active Team Status: Inactive Member Role Status Dates Dr. Ramón Coulter MD Primary Care Provider Active Start: July 15, 2024 End: July 15, 2024 Dr. Ramón Coulter MD Attending Provider Active Start: July 15, 2024 End: July 15, 2024 Dr. Ramón Coulter MD Referring Provider Active Start: July 15, 2024 End: July 15, 2024 Team Status: Inactive Member Role Status Dates Dr. Ramón Coulter MD Primary Care Provider Active Start: September 20, 2024 End: September 20, 2024 Dr. Ramón Coulter MD Attending Provider Active Start: September 20, 2024 End: September 20, 2024 Dr. Ramón Coulter MD Referring Provider Active Start: September 20, 2024 End: September 20, 2024 Team Status: Inactive Member Role Status Dates Dr. Ramón Coulter MD Primary Care Provider Active Start: September 27, 2024 End: September 27, 2024 Dr. Ramón Coulter MD Referring Provider Active Start: September 27, 2024 End: September 27, 2024 Chris Martel MD Attending Provider Active St art: September 27, 2024 End: September 27, 2024 Team Status: Inactive Member Role Status Dates Dr. Ramón Coulter MD Primary Care Provider Active Start: September 27, 2024 End: September 27, 2024 Dr. Quinten Barrera MD Attending Provider Active S tart: September 27, 2024 End: September 27, 2024 Team Status: Inactive Member Role Status Dates Dr. Ramón Coulter MD Primary Care Provider Active Start: October 13, 2024 End: October 13, 2024 Dr. Ramón Coulter MD Attending Provider Active Start: October 13, 2024 End: October 13, 2024 Dr. Ramón Coulter MD Referring Provider Active Start: October 13, 2024 End: October 13, 2024 Team Status: Inactive Member Role Status Dates Dr. Ramón Cuolter MD Primary Care Provider Active Start: October 20, 2024 End: October 20, 2024 Chris Martel MD Attending Provider Active St art: October 20, 2024 End: October 20, 2024 Chris Martel MD Referring Provider Active St art: October 20, 2024 End: October 20, 2024 Team Status: Inactive Member Role Status Dates Dr. Ramón Coulter MD Primary Care Provider Active Start: October 25, 2024 End: October 25, 2024 Dr. Ramón Coulter MD Attending Provider Active Start: October 25, 2024 End: October 25, 2024 Dr. Ramón Coulter MD Referring Provider Active Start: October 25, 2024 End: October 25, 2024 Team Status: Inactive Member Role Status Dates Dr. Ramón Coulter MD Primary Care Provider Active Start: November 02, 2024 End: November 02, 2024 Dr. Ramón Coulter MD Referring Provider Active Start: November 02, 2024 End: November 02, 2024 Dr. Yariel Florez MD Attending Provider Active Sta rt: November 02, 2024 End: November 02, 2024 Team Status: Inactive Member Role Status Dates Dr. Ramón Coulter MD Primary Care Provider Active Start: November 08, 2024 End: November 08, 2024 Dr. Ramón Coulter MD Referring Provider Active Start: November 08, 2024 End: November 08, 2024 Chris Martel MD Attending Provider Active St art: November 08, 2024 End: November 08, 2024 Team Status: Inactive Member Role Status Dates Dr. Ramón Coulter MD Primary Care Provider Active Start: December 02, 2024 End: December 02, 2024 Dr. Ramón Coulter MD Referring Provider Active Start: December 02, 2024 End: December 02, 2024 Bharat TALLEY PA Attending Provider Active St art: December 02, 2024 End: December 02, 2024 Team Status: Active Member Role Status Dates Dr. Ramón Coulter MD Primary Care Provider Active Start: December 02, 2024 Bharat TALLEY PA Attending Provider Active St art: December 02, 2024 Bharat TALLEY PA Referring Provider Active St art: December 02, 2024 Team Status: Inactive Member Role Status Dates Dr. Ramón Coulter MD Primary Care Provider Active Start: December 02, 2024 End: December 02, 2024 Bharat TALLEY PA Attending Provider Active St art: December 02, 2024 End: December 02, 2024 Bharat TALLEY PA Referring Provider Active St art: December 02, 2024 End: December 02, 2024 Team Status: Active Member Role Status Dates Dr. Ramón Coulter MD Primary Care Provider Active Start: December 08, 2024 Dr. Leonie Loja MD Attending Provider Active Start: December 08, 2024 Dr. Leonie Loja MD Referring Provider Active Start: December 08, 2024 Team Status: Inactive Member Role Status Dates Dr. Ramón Coulter MD Primary Care Provider Active Start: December 10, 2024 End: December 10, 2024 Dr. Ramón Coulter MD Referring Provider Active Start: December 10, 2024 End: December 10, 2024 GERRI Lopez Attending Provider Active St art: December 10, 2024 End: December 10, 2024 Team Status: Inactive Member Role Status Dates Dr. Ramón Coulter MD Primary Care Provider Active Start: December 08, 2024 End: December 08, 2024 Dr. Leonie Loja MD Attending Provider Active Start: December 08, 2024 End: December 08, 2024 Dr. Leonie Loja MD Referring Provider Active Start: December 08, 2024 End: December 08, 2024 Team Status: Inactive Member Role Status Dates Dr. Ramón Coulter MD Primary Care Provider Active Start: December 16, 2024 End: December 16, 2024 Dr. Ramón Coulter MD Referring Provider Active Start: December 16, 2024 End: December 16, 2024 GERRI Lopez Attending Provider Active St art: December 16, 2024 End: December 16, 2024 <item> Privacy Markings (unrecogniz ed section and content) Section Author: Anabell Thomas PROHIBITION ON REDISCLOSURE OF CONFIDENTIAL INFORMATION This notice accompanies a disclosure of information concerning a client made to you with the consent of such client. Source Comments (unrecognize d section and content) In the event this informatio n is protected by the Federal Confidentiality of Alcohol and Drug Abuse Patient Records regulations: The Federal rules restrict any use of the information to criminally investigate or prosecute any alcohol or drug abuse patient.[facility] Center[facility] the event this information is protected by the Federal Confidentiality of Alcohol and Drug Abuse Patient Records regulations: The Federal rules restrict any use of the information to criminally investigate or prosecute any alcohol or drug abuse patient.[facility] Center[facility] the event this information is protected by the Federal Confidentiality of Alcohol and Drug Abuse Patient Records regulations: The Federal rules restrict any use of the information to criminally investigate or prosecute any alcohol or drug abuse patient.[facility] the event this information is protected by the Federal Confidentiality of Alcohol and Drug Abuse Patient Records regulations: The Federal rules restrict any use of the information to criminally investigate or prosecute any alcohol or drug abuse patient.[facility] Goals (unrecognized section and content) Goals may be documented in a n alternate sectionGoals may be documented in an alternate sectionGoals may be documented in an alternate sectionGoals may be documented in an alternate sectionGoals may be documented in an alternate sectionGoals may be documented in an alternate sectionGoals may be documented in an alternate sectionGoals may be documented in an alternate sectionGoals may be documented in an alternate sectionGoals may be documented in an alternate sectionGoals may be documented in an alternate section Scheduled Active and Recently Administ ered Medications (unrecognized section and content) Medication Order 06/19/2024 06/20/2024 06/21/2024 acetaminophen (Tylenol) tablet 1,000 mg 1,000 mg, Oral, Every 8 hours, First dose on Fri06/17/24 at 0335, Maximum dose of acetaminophen is 4000 mg from all sources in 24 hours. 0321 (Given - Provider: Reji Alves RN)0906 (Given - Provider: Ken Smith RN)2159 (Given - Provider: Ellis Jimenez, RN) 0405 (Given - Provider: Ellis Jimenez, RN)1151 (Given - Provider: Ken Smith RN)2142 (Given - Provider: Ellis Jimenez, RN) 0344 (Given - Provider: Ellis Jimenez, RN)1203 (Given - Provider: Ryann Wellington, PRINCE) aspirin EC tablet 81 mg 81 mg, Oral, Daily, First dose on Fri06/17/24 at 0900, Do not crush, chew, or split. 0905 (Given - Provider: Ken Smith RN) 0856 (Given - Provider: Ken Smith RN) 0851 (Given - Provider: Ryann Wellington, PRINCE) enoxaparin (Lovenox) syringe 40 mg 40 mg, SubCUTAneous, Every 24 hours scheduled (Daily), First dose on Fri06/18/24 at 1230, Indication of Use: Prophylaxis-DVT/PE, Indications: Prophylaxis of Venous Thromboembolism 0905 (Given - Provider: Ken Smith RN) 0855 (Given - Provider: Ken Smith, RN) 0856 (Not Given - Provider: Ryann Wellington, PRINCE - Reason: Patient/family refused) insulin glargine (Lantus) injection 46 Units 46 Units, SubCUTAneous, Nightly, First dose (after last modification) on Jen 06/17/24 at 2100 2159 (Given - Provider: Ellis Jimenez, PRINCE) 2143 (Given - Provider: Ellis Jimenez, PRINCE) Insulin Lispro (Humalog) injection 0-18 Units(Linked Group 1) 0-18 Units, SubCUTAneous, 3 times daily with meals, First dose on 06/19/24 at 1200, High Dose Correction Algorithm Glucose: Dose: LESS than 150 No Insulin 150-199 3 Units 200-249 6 Units 250-299 9 Units 300-349 12 Units 350-400 15 Units Above 400 18 Units 1247 (Given - Provider: Ken Smith, PRINCE)1700 (Not Given - Provider: Ken Smith RN - Reason: Order parameters not met) 0855 (Given - Provider: Ken Smith RN)1150 (Given - Provider: Ken Smith, PRINCE)1715 (Given - Provider: Ken Smith, PRINCE) 0851 (Given - Provider: Ryann Wellington RN - Comment: BGT: 170)1203 (Given - Provider: Ryann Wellington RN - Comment: BGT: 228)1700 (Canceled Entry - Provider: Automatic Discharge Provider - Comment: Automatically canceled at discontinue of medication order) Insulin Lispro (Humalog) injection 0-18 Units(Linked Group 1) 0-18 Units, SubCUTAneous, Nightly, First dose on 06/19/24 at 2100, If eating or bolus tube feeding: High Dose Correction Algorithm Glucose: Dose: LESS than 150 No Insulin 150-199 3 Units 200-249 6 Units 250-299 9 Units 300-349 12 Units 350-400 15 Units Above 400 18 Units 2100 (Not Given - Provider: Ellis Jimenez RN - Reason: Order parameters not met) 2143 (Given - Provider: Ellis Jimenez RN) insulin regular (HumuLIN R,NovoLIN R) injection 30 Units 30 Units, SubCUTAneous, 3 times daily with meals, First dose (after last reorder) on Jen 06/17/24 at 1845, Recovery (only) 0905 (Given - Provider: Ken Smith RN)1246 (Given - Provider: Ken Smith, PRINCE)1743 (Given - Provider: Ken Smith, PRINCE) 0855 (Given - Provider: Ken Smith, PRINCE)1150 (Given - Provider: Ken Smith, PRINCE)1715 (Given - Provider: Ken Smith RN) 0852 (Given - Provider: Ryann Wellington RN)1203 (Given - Provider: Ryann Wellington, PRINCE)1700 (Canceled Entry - Provider: Automatic Discharge Provider - Comment: Automatically canceled at discontinue of medication order) lisinopril tablet 10 mg 10 mg, Oral, Daily, First dose on Jen 24 at 0800 0905 (Given - Provider: Ken Smith RN) 0856 (Given - Provider: Ken Smith RN) 0851 (Given - Provider: Ryann Wellington, PRINCE) metoprolol succinate XL (Toprol-XL) 24 hr tablet 25 mg 25 mg, Oral, Daily, First dose on Jen 06/17/24 at 0800, Do not crush or chew. 0905 (Given - Provider: Ken Smith RN) 0856 (Given - Provider: Ken Smith, PRINCE) 0851 (Given - Provider: Ryann Wellington RN) rosuvastatin (Crestor) tablet 20 mg 20 mg, Oral, Nightly, First dose on Jen 06/17/24 at 2100 2159 (Given - Provider: Ellis Jimenez, PRINCE) 2143 (Given - Provider: Ellis Jimenez RN) PRN Medication Order 06/19/2024 06/20/2024 06/21/2024 acetaminophen (Tylenol) suppository 650 mg(Linked Group 2) 650 mg, Rectal, Every 6 hours PRN, mild pain (1-3), fever, For temp greater than 100.4 F (38 C), Starting on Jen 06/17/24 at 0520, Administer if oral route cannot be used. Maximum dose of acetaminophen is 4000 mg from all sources in 24 hours. acetaminophen (Tylenol) tablet 650 mg(Linked Group 2) 650 mg, Oral, Every 6 hours PRN, mild pain (1-3), fever, For temp greater than 100.4 F (38 C), Starting on Jen 06/17/24 at 0520, Maximum dose of acetaminophen is 4000 mg from all sources in 24 hours. dextrose 5 % infusion 100 mL/hr, IntraVENous, PRN, Blood sugar less than 70mg/dL, Starting on Jen 06/17/24 at 0520, Start infusion following administration of dextrose 50% or glucagon. dextrose 50 % solution 12.5 g 12.5 g, IntraVENous, PRN, low blood sugar, Blood glucose less than 70 mg/dL and patient NOT ALERT or NPO., Starting on Jen 06/17/24 at 0520, If patient does not respond within 5 minutes, repeat dose x1. Start D5W at 100 mL/hour until ordering provider can be reached. Repeat blood glucose in 15 minutes. If blood glucose is less than 70 mg/dL, repeat treatment and recheck blood glucose in 15 minutes x2. If using Glucostabilizer, dose as instructed per system. glucagon (human recombinant) injection 1 mg 1 mg, IntraMUSCular, PRN, low blood sugar, Blood glucose less than 70 mg/dL and patient NOT ALERT or NPO and does not have IV access., Starting on Jen 06/17/24 at 0520, After administration, attempt intravenous access and start D5W at 100 mL/hr. Repeat blood glucose in 15 minutes x2 and notify provider. glucose oral gel 15 g 15 g, Oral, As needed, low blood sugar, Starting on Jen 06/17/24 at 0520, If blood glucose less than 50 mg/dL and patient ALERT and NOT NPO, give 2 tubes glucose gel. If blood glucose less than 70 mg/dL and patient ALERT and NOT NPO, give 1 tube glucose gel. Repeat blood glucose in 15 minutes. If blood glucose is less than 70 mg/dL, repeat treatment and recheck blood glucose in 15 minutes x2 and notify provider. naloxone (Narcan) injection 0.4 mg 0.4 mg, IntraVENous, Every 5 min PRN, opioid reversal, respiratory depression, Starting on Jen 06/17/24 at 0334, +++ For RR <10, pinpoint pupils, over sedation for opioid reversal - MUST notify extrusion line operator provider immediately after first dose, may give IM or SQ if no IV access +++ ondansetron (Zofran) injection 4 mg(Linked Group 3) 4 mg, IntraVENous, Every 6 hours PRN, nausea, vomiting, Starting on Jen 06/17/24 at 0520, 1st Line. Give IV if patient is unable to take orally. If inadequate response within 60 minutes, proceed to next-line agent or contact provider if no further options ordered. 0849 (See Alternative - Provider: Ryann Wellington RN) ondansetron ODT (Zofran-ODT) disintegrating tablet 4 mg(Linked Group 3) 4 mg, Oral, Every 8 hours PRN, nausea, vomiting, Starting on Jen 06/17/24 at 0520, 1st Line. If inadequate response within 60 minutes, proceed to next-line agent or contact provider if no further options ordered. Patient should allow tablet to dissolve on tongue. Do not remove from blister pack until just before administering. 0849 (Given - Provider: Ryann Wellington RN) oxyCODONE (Roxicodone) immediate release tablet 2.5 mg(Linked Group 4) 2.5 mg, Oral, Every 4 hours PRN, moderate pain (4-6), Starting on Jen 06/17/24 at 0332 0322 (See Alternative - Provider: Reji Alves RN)0904 (See Alternative - Provider: Ken Smith RN)1253 (See Alternative - Provider: Ken Smith RN)1746 (See Alternative - Provider: Ken Smith RN)2200 (See Alternative - Provider: Ellis Jimenez RN) 0406 (See Alternative - Provider: Ellis Jimenez RN)1151 (See Alternative - Provider: Ken Smith RN)1549 (See Alternative - Provider: Princess Giron RN) 0001 (See Alternative - Provider: Ellis Jimenez RN)0851 (See Alternative - Provider: Ryann Wellington RN)1412 (See Alternative - Provider: Ryann Wellington RN) oxyCODONE (Roxicodone) immediate release tablet 5 mg(Linked Group 4) 5 mg, Oral, Every 4 hours PRN, severe pain (7-10), Starting on Jen 06/17/24 at 0332 0322 (Given - Provider: Reji Alves RN)0904 (Given - Provider: Ken Smith RN)1253 (Given - Provider: Ken Smith RN)1746 (Given - Provider: Ken Smith RN)2200 (Given - Provider: Ellis Jimenez RN) 0406 (Given - Provider: Ellis Jimenez RN)1151 (Given - Provider: Ken Smith, RN)1549 (Given - Provider: Princess Giron, RN) 0001 (Given - Provider: Ellis Jimenez, RN)0851 (Given - Provider: Ryann Wellington, RN)1412 (Given - Provider: Ryann Wellington, RN) polyethylene glycol (PEG) 3350 (Miralax) packet 17 g 17 g, Oral, Daily PRN, constipation, Starting on Jen 06/17/24 at 0520, 1st line for treatment of constipation - give scheduled if no bowel movement in past 24 hours. 1158 (Given - Provider: Ken Smith RN) 0908 (Given - Provider: Ryann Wellington, RN) Linked Groups Order Group 1: Insulin Lispro (Humalog) injection 0-18 UnitsJump to med 0-18 Units, SubCUTAneous, 3 times daily with meals, First dose on 06/19/24 at 1200, High Dose Correction Algorithm Glucose: Dose: LESS than 150 No Insulin 150-199 3 Units 200-249 6 Units 250-299 9 Units 300-349 12 Units 350-400 15 Units Above 400 18 Units And Insulin Lispro (Humalog) injection 0-18 UnitsJump to med 0-18 Units, SubCUTAneous, Nightly, First dose on 06/19/24 at 2100, If eating or bolus tube feeding: High Dose Correction Algorithm Glucose: Dose: LESS than 150 No Insulin 150-199 3 Units 200-249 6 Units 250-299 9 Units 300-349 12 Units 350- 400 15 Units Above 400 18 Units Group 2: acetaminophen (Tylenol) tablet 650 mgJump to med 650 mg, Oral, Every 6 hours PRN, mild pain (1-3), fever, For temp greater than 100.4 F (38 C), Starting on Jen 06/17/24 at 0520, Maximum dose of acetaminophen is 4000 mg from all sources in 24 hours. Or acetaminophen (Tylenol) suppository 650 mgJump to med 650 mg, Rectal, Every 6 hours PRN, mild pain (1-3), fever, For temp greater than 100.4 F (38 C), Starting on Jen 24 at 0520, Administer if oral route cannot be used. Maximum dose of acetaminophen is 4000 mg from all sources in 24 hours. Group 3: ondansetron ODT (Zofran-ODT) disintegrating tablet 4 mgJump to med 4 mg, Oral, Every 8 hours PRN, nausea, vomiting, Starting on Jen 24 at 0520, 1st Line. If inadequate response within 60 minutes, proceed to next-line agent or contact provider if no further options ordered. Patient should allow tablet to dissolve on tongue. Do not remove from blister pack until just before administering. Or ondansetron (Zofran) injection 4 mgJump to med 4 mg, IntraVENous, Every 6 hours PRN, nausea, vomiting, Starting on Jen 24 at 0520, 1st Line. Give IV if patient is unable to take orally. If inadequate response within 60 minutes, proceed to next-line agent or contact provider if no further options ordered. Group 4: oxyCODONE (Roxicodone) immediate release tablet 2.5 mgJump to med 2.5 mg, Oral, Every 4 hours PRN, moderate pain (4-6), Starting on Jen 06/17/24 at 0332 Or oxyCODONE (Roxicodone) immediate release tablet 5 mgJump to med 5 mg, Oral, Every 4 hours PRN, severe pain (7-10), Starting on Jen 06/17/24 at 0332 FOR RECORDS PERTAINING TO PATIENTS WHO ARE OR HAVE BEEN ENROLLED IN A CHEMICAL DEPENDENCY/SUBSTANCEABUSE PROGRAM, SOME INFORMATION MAY BE OMITTED. This clinical summary was aggregated from multiple sources. Caution should be exercised in using it in the provision of clinical care. This summary normalizes information from multiple sources, and as a consequence, information in this document may materially change the coding, format and clinical context of patient data. In addition, data may be omitted in some cases. CLINICAL DECISIONS SHOULD BE BASED ON THE PRIMARY CLINICAL RECORDS. [employer] [facility]. provides no warranty or guarantee of the accuracy or completeness of information in this document.
--- NOTE | 2024-12-29 07:03 | PCM.HP.STD ---
HPI - General HPI Narrative MELISSA CINTRON, is a 79 F who presents for right reverse total shoulder arthroplasty. no change to h and p. rab, post op instructions, narcotic counselling. right shoulder marked. ok to proceed. MR#: [id number] Acct: [id number] Name: MELISSA CINTRON Rep #: [id number] : 1945 Provider: Dr. Chris Martel MD Age/Sex: 78/F Location: [facility] [place] Status: Signed Intake Vital Signs 09/27/2512:13 11/02/2510:15 Height 5 ft 3 in 5 ft 3 in Weight: 189 lb 4 oz BMI 33.5 BP 111/63 Blood Pressure Location Rt brachial Position Sitting Pulse 65 Pulse Source Monitor Pulse Oximetry (%) 95 Oxygen Delivery Method room air Intake Visit Reasons: RIGHT SHOULDER Chief Complaint: Right Shoulder Follow-Up Accompanied by: Self Is patient in pain?: Yes Pain scale (1-10): 8 Allergies Sulfa (Sulfonamide Antibiotics) Adverse Reaction (Severe, Verified 11/08/24 13:14) Upset StomachPenicillins Adverse Reaction (Intermediate, Verified 11/08/24 13:14) Diarrheacephalexin (From Keflex) Adverse Reaction (Verified 11/08/24 13:14) Nausea/Vom/Diarrhea Medications ?Medication ?Instructions ?Recorded ?Confirmed ?Type insulin syringe-needle U-100 0.3 #350 ea 07/17/17 11/08/24 Rx mL 31 gauge x 5/16 (BD Insulin Syringe Ultra-Fine) pen needle, diabetic 32 gauge x #350 ea 02/19/18 11/08/24 Rx 5/32 (BD Ultra-Fine Christy Pen Needle) cholecalciferol (vitamin D3) 25 1,000 unit PO DAILY 06/23/18 11/08/24 History mcg (1,000 unit) capsule aspirin 81 mg tablet,delayed 81 mg PO DAILY 07/24/20 11/08/24 History release mecobalamin (vitamin B12) 1,000 1,000 mcg PO DAILY 07/24/20 11/08/24 History mcg chewable tablet blood sugar diagnostic #100 ea 12/18/20 11/08/24 Rx omega-3 fatty acids 1,000 mg 1,000 mg PO BID 01/23/23 11/08/24 History capsule polyethylene glycol 3350 17 4 g PO DAILY PRN 01/23/23 11/08/24 History gram/dose oral powder (Miralax) tramadol 25 mg tablet 25 mg PO BID PRN 09/01/23 11/08/24 History flash glucose sensor (FreeStyle #2 ea 10/02/23 11/08/24 Rx Nomi 2 Sensor kit) metoprolol succinate 50 mg 25 mg (1/2 x 50 mg) PO BID #180 10/13/23 11/08/24 Rx tablet,extended release 24 hr tabs Novolog FlexPen U-100 Insulin 100 40 unit (0.4 mL) subcut TID #48 mL 01/01/24 11/08/24 Rx unit/mL (3 mL) subcutaneous (insulin aspart U-100) fluticasone propionate 50 1 spray intranasal DAILY PRN 01/01/24 11/08/24 History mcg/actuation nasal spray,suspension lisinopril 10 mg tablet 10 mg PO DAILY #90 tabs 01/23/24 11/08/24 Rx blood sugar diagnostic (OneTouch #100 ea 04/09/24 11/08/24 Rx Ultra Test strips) blood-glucose meter,continuous #1 ea 05/13/24 11/08/24 Rx (FreeStyle Nomi 3 [place]) blood-glucose sensor (FreeStyle #6 ea 05/13/24 11/08/24 Rx Nomi 3 Plus Sensor device) pen needle, diabetic 32 gauge x #150 ea 06/14/24 11/08/24 Rx 5/32 (BD Ultra-Fine Christy Pen Needle) loratadine 10 mg tablet 10 mg PO DAILY PRN for allergies 09/20/24 11/08/24 Rx #90 TABLETS potassium chloride 20 mEq 20 meq PO QDAY #90 tabs 09/21/24 11/08/24 Rx tablet,extended release(part/cryst) (Klor-Con M) allopurinol 300 mg tablet 300 mg PO DAILY #90 tabs 10/13/24 11/08/24 Rx furosemide 20 mg tablet 20 mg PO QDAY #90 tabs 10/13/24 11/08/24 Rx levothyroxine 112 mcg tablet 112 mcg PO DAILY #90 tabs 10/13/24 11/08/24 Rx montelukast 10 mg tablet 10 mg PO DAILY #90 tabs 10/13/24 11/08/24 Rx pantoprazole 40 mg tablet,delayed 40 mg PO Q OTHER DAY heartburn #45 10/13/24 11/08/24 Rx release tabs rosuvastatin 20 mg tablet 20 mg PO QDAY #90 tabs 10/13/24 11/08/24 Rx trazodone 50 mg tablet 50 mg PO QHS PRN insomnia #90 tabs 10/13/24 11/08/24 Rx insulin degludec 200 unit/mL (3 70 unit (0.35 mL) subcut QHS 10/27/24 11/08/24 Rx mL) subcutaneous pen (Tresiba #31.52 mL FlexTouch U-200 insulin) fenofibrate micronized 134 mg 134 mg PO DAILY #90 caps 11/02/24 11/08/24 Rx capsule Have you fallen in the past year?: No PFSH Medical History Secondary osteoarthritis, right shoulder Right shoulder pain Osteopenia determined by x-ray Bilateral pseudophakia Amblyopia of left eye Dry eye syndrome of bilateral lacrimal glands Acute allergic conjunctivitis of both eyes Hypertriglyceridemia Encounter for long-term (current) insulin use Shingles Thyroid disease Skin cancer High cholesterol Gout Diabetes type 2, controlled Back problem Seasonal allergies Surgical History Status post Mohs surgery History of knee replacement History of carpal tunnel release Hx of hernia repair H/O total hysterectomy Hx of cataract surgery Hx of cholecystectomy History of back surgery Family History Father Colon cancerMother Diabetes Myocardial infarctionSon Kidney stonesSon Kidney stones Diabetes HyperlipidemiaSister DiabetesBrother Diabetes Heart diseaseSister Heart disease Diabetes COPD (chronic obstructive pulmonary disease) Social History household members: spouse current occupational status: 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 Chris Martel MD 11/08/24 [id number]. Part of today?s visit was documented by [ ], acting as scribe. MELISSA CINTRON is a 78 year old F here today for follow-up right shoulder pain after a proximal humerus fracture. Follow-up for surgical planning and signed the consent form for going ahead with the right reverse total shoulder arthroplasty. Supplemental Info [facility] Imaging Services [address] [place], [place] [id number] Extremity Upper without Contra MR#: [id number] Acct: [id number] Name: MELISSA CINTRON Rep #: [id number] : 1945 F 78 From: Johanna Strickland MD PCP: Dr. Penny Coulter MD Status: REG CLI Study: Extremity Upper without Contra Date of Exam: 10/20/24 Exam# [id number] Ordering Dr: Chris Martel MD PROCEDURE: EXTREMITY UPPER WITHOUT CONTRA 10/20/2024 REASON FOR EXAM: SURGICAL PLANNING FOR RTSA / BLUEPRINT CUTS TECHNIQUE: Axial CT images of the right shoulder obtained without intravenous contrast. Coronal and Sagittal reconstruction series were provided. One or more dose reduction techniques were used (e.g., Automated exposure control, adjustment of the mA and/or kV according to patient size, use of iterative reconstruction technique RADIATION DOSE SUMMARY: CTDlvol: 23 mGy DLP: 544 mGycm COMPARISON: Radiographs on 09/27/2024. FINDINGS: Mild osteopenia of the visualized bones. Chronic deformities of the humeral head and neck secondary to healed fractures. Moderate to severe degenerative joint disease of the acromioclavicular and glenohumeral joints. Elevation of the humeral head with narrowing of the subacromial space, probably secondary to chronic rotator cuff tendons tears. Moderate chronic atrophy of the supraspinatus muscle. No lytic or blastic aggressive bone lesion is identified. CT/Extremity Upper without Contra IMPRESSION: 1. No CT evidence of an acute abnormality. 2. Moderate to severe degenerative joint disease of the acromioclavicular and glenohumeral joints. Reading Location: [address] Imaging Services [address] [place], [place] [address] Upper Ext Joint Only(Routine) MR#: [id number] Acct: [id number] Name: MELISSA CINTRON Rep #: [id number] : 1945 F 78 From: Johanna Strickland MD PCP: Dr. Penny Coulter MD Status: REG CLI Study: Upper Ext Joint Only(Routine) Date of Exam: 10/25/24 Exam# [id number] Ordering Dr: Penny Coulter MD COMPARISON: Multiplanar MRI was performed through the right shoulder without intravenous contrast. Images were sent through PACs for diagnostic interpretation. FINDINGS: Abnormal osseous modeling of the humeral head and neck showing contour irregularity and marrow edema of its neck, possibly sequel of old malunited fracture. The supraspinatus tendon shows intrasubstance high signal with focal near total interruption of its anterior insertional fibers. No evidence of complete fibers interruption. Thickening and intrasubstance high signal of the subscapularis tendon with partial fibers interruption. Intrasubstance high signal of the infraspinatus tendon with no evidence of complete fibers interruption. Fatty changes of its muscle belly. The teres minor tendon appears intact. High signal of the intra-articular segment of the long head of biceps tendon. Fluid signal distending its sheath. Attenuated glenoid labrum showing diffuse high signal. 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 Marginal lipping of the glenohumeral articular surface with subcortical marrow edema. Mild glenohumeral joint effusion Fluid signal distending the subcoracoid and subacromial/subdeltoid bursa. No marrow infiltrative lesions. The neurovascular bundles appear unremarkable. MRI/Upper Ext Joint Only(Routine) IMPRESSION: Abnormal osseous modeling of the humeral head and neck showing contour irregularity and marrow edema of its neck, possibly sequel of old malunited fracture. Advanced degenerative arthropathic changes of the acromioclavicular joint with subacromial impingement. Supraspinatus tendonitis with partial thickness tear. Subscapularis tendonitis with partial thickness tear. Infraspinatus tendonitis. Tendonitis of the long head of biceps tendon. Glenohumeral degenerative arthropathy with mild joint effusion & subcoracoid and subacromial/subdeltoid bursitis. Reading [facility] Coding Level of Care Code Off vis,est,level 4 Diagnoses Secondary osteoarthritis, right shoulder M19.211 Right shoulder pain M25.511 Assessment and Plan Assessment and Plan (1) Secondary osteoarthritis, right shoulder: Status: Acute Plan: 78-year-old female with right shoulder pain and stiffness about 6 months post proximal humerus fracture with malunion and advanced degenerative changes of the glenohumeral joint. The solution for this would be a reverse total shoulder arthroplasty. I reviewed the CT and MRI. Will plan the case with the surgical rep. The patient wished to go ahead with surgery in the form of right reverse total shoulder arthroplasty. The risks may be slightly elevated after proximal humerus fracture and a delayed reverse total shoulder arthroplasty risks like infection as well as instability and other complications. Pros and cons risks and benefits were discussed with the patient including but not limited to infection, pain, stiffness, bleeding, damage to surrounding structures, neurovascular injury, recurrence or retear, failure or wear of hardware or fixation, instability, fracture, deep vein thrombosis and pulmonary embolism, anesthetic risks, , patient dissatisfaction, need for further surgery and other risks. Patient understood and wished to proceed with surgery, and signed the informed consent documentation. (2) Right shoulder pain: Status: Acute Clinical Quality Measures Falls Risk Screening/Assistive Devices Have you fallen in the past year?: No Ortho Exam General General: Yes no acute distress Neurologic: Yes alert and Yes oriented x3 Psychologic: Yes reasonable and appropriate Right Shoulder Skin/Wound: Yes CDI, No ecchymosis, No erythema and No swelling Testing: Positive Hawkin's, Neer's and empty can; Negative Speed's, TTP Biceps, TTP AC Joint, Drop Arm or scapular winging SHOULDER: normal motor and sens to ax nerve, and MRU and AIN/PIN FE 70, passive 80. ER 15. PFSH Medical History Wears partial dentures Wears glasses Post-menopausal History of Clostridium difficile infection MRSA infection Cancer History of steroid therapy Insulin dependent diabetes mellitus Diabetes Arthritis DVT (deep venous thrombosis) Back pain History of hiatal hernia History of IBS Gastric reflux Non-smoker History of pain when walking History of echocardiogram History of stress test 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 Cardiology follow-up encounter Hx of fracture of lower leg Secondary osteoarthritis, right shoulder Right shoulder pain Osteopenia determined by x-ray Bilateral pseudophakia Amblyopia of left eye Dry eye syndrome of bilateral lacrimal glands Acute allergic conjunctivitis of both eyes Hypertriglyceridemia Encounter for long-term (current) insulin use Shingles Thyroid disease Skin cancer High cholesterol Gout Diabetes type 2, controlled Back problem Seasonal allergies Home Medications ?Medication ?Instructions ?Recorded ?Last Taken ?Type insulin syringe-needle U-100 0.3 #350 ea 07/17/17 Unknown Rx mL 31 gauge x 11/19 (BD Insulin Syringe Ultra-Fine) pen needle, diabetic 32 gauge x #350 ea 02/19/18 Unknown Rx (BD Ultra-Fine Christy Pen Needle) cholecalciferol (vitamin D3) 25 2,000 unit PO DAILY 06/23/18 Unknown History mcg (1,000 unit) capsule aspirin 81 mg tablet,delayed 81 mg PO DAILY 07/24/20 Unknown History release mecobalamin (vitamin B12) 1,000 1,000 mcg PO DAILY 07/24/20 Unknown History mcg chewable tablet blood sugar diagnostic #100 ea 12/18/20 Unknown Rx polyethylene glycol 3350 17 4 g PO DAILY PRN constipation 01/23/23 Unknown History gram/dose oral powder (Miralax) tramadol 25 mg tablet 50 mg PO Q8H PRN pain 09/01/23 Unknown History flash glucose sensor (FreeStyle #2 ea 10/02/23 Unknown Rx Nomi 2 Sensor kit) fluticasone propionate 50 1 spray intranasal DAILY PRN 01/01/24 Unknown History mcg/actuation nasal allergy symptoms spray,suspension lisinopril 10 mg tablet 10 mg PO DAILY #90 tabs 01/23/24 Unknown Rx blood sugar diagnostic (OneTouch #100 ea 04/09/24 Unknown Rx Ultra Test strips) blood-glucose sensor (FreeStyle #6 ea 05/13/24 Unknown Rx Nomi 3 Plus Sensor device) blood-glucose,machine puller and laster,cont #1 ea 05/13/24 Unknown Rx (FreeStyle Nomi 3 [place]) pen needle, diabetic 32 gauge x #150 ea 06/14/24 Unknown Rx 5/32 (BD Ultra-Fine Christy Pen Needle) loratadine 10 mg tablet 10 mg PO DAILY PRN for allergies 09/20/24 Unknown Rx #90 TABLETS allopurinol 300 mg tablet 300 mg PO DAILY #90 tabs 10/13/24 Unknown Rx furosemide 20 mg tablet 20 mg PO QDAY #90 tabs 10/13/24 Unknown Rx levothyroxine 112 mcg tablet 112 mcg PO DAILY #90 tabs 10/13/24 Unknown Rx montelukast 10 mg tablet 10 mg PO DAILY #90 tabs 10/13/24 Unknown Rx rosuvastatin 20 mg tablet 20 mg PO QDAY #90 tabs 10/13/24 Unknown Rx trazodone 50 mg tablet 50 mg PO QHS PRN insomnia #90 tabs 10/13/24 Unknown Rx fenofibrate micronized 134 mg 134 mg PO DAILY #90 caps 11/02/24 Unknown Rx capsule insulin degludec 200 unit/mL (3 50 unit subcut QHS 12/01/24 Unknown History mL) subcutaneous pen (Tresiba FlexTouch U-200 insulin) metoprolol succinate 50 mg 25 mg PO DAILY 12/01/24 Unknown History tablet,extended release 24 hr pantoprazole 40 mg tablet,delayed 40 mg PO Q OTHER DAY PRN heartburn 12/01/24 Unknown History release omega-3 fatty acids 1,000 mg 1,000 mg PO QDAY 12/02/24 Unknown History capsule potassium chloride 20 mEq 20 meq PO QDAY #90 tabs 12/02/24 Unknown Rx tablet,extended release(part/cryst) (Klor-Con M) insulin aspart U-100 100 unit/mL 28 unit subcut TID 12/21/24 Unknown History (3 mL) subcutaneous pen (Novolog FlexPen U-100 Insulin aspart) Allergy/AdvReac Type Severity Reaction Status Date / Time Sulfa (Sulfonamide AdvReac Severe Upset Verified 12/21/24 13:13 Antibiotics) Stomach Penicillins AdvReac Intermediate Diarrhea Verified 12/21/24 13:13 cephalexin (From Keflex) AdvReac Nausea/Vom/ Verified 12/21/24 13:13 Diarrhea Family History Father Colon cancer Mother Diabetes Myocardial infarction Son Kidney stones Son Kidney stones Diabetes Hyperlipidemia Sister Diabetes Brother Diabetes Heart disease Sister Heart disease Diabetes COPD (chronic obstructive pulmonary disease) Surgical History Status post Mohs surgery History of knee replacement History of carpal tunnel release Hx of hernia repair H/O total hysterectomy Hx of cataract surgery Hx of cholecystectomy History of back surgery Social History household members: spouse 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
[2024-12-29] MEDS: Magnesium 2 GM for ERAS IV (07:13)
[2024-12-29] MEDS: Scopolamine 1mg/72hr Patch 1 PATCH TD (07:14)
[2024-12-29] MEDS: Lactated Ringers 1,000 ML 15 ML IV (07:14)
[2024-12-29] MEDS: Acetaminophen 500 MG Tablet 1000 MG PO (07:15)
[2024-12-29] MEDS: Gabapentin 600 MG Tablet PO (07:15)
--- NOTE | 2024-12-29 07:28 | PCM.PRE.AN2 ---
ASA Classification* ASA Classification ASA Classification: 3 (Hx DVT, T2DM, GERD, Thyroid, depression/anxiety, CKD3, HTN, RYAN-untreated, Gout, Hiatal hernia, nonobstructive CAD, hx palpitations ) Assessment & Plan Anesthesia* Anesthesia Assessment Anesthesia Assessment: Discussed sedation and/or anesthesia options, risks, benefits, and alternatives with patient/parents/legal guardian/POA. Questions invited. The patient/parents/legal guardian/POA seems to understand and agrees to proceed with anesthesia plan. Reviewed the physical assessment, medical history, allergy history and patient home medications list prior to surgery/procedure/anesthetic and documented any changes. Performed airway and anesthesia risk assessments. Anesthesia Type Anesthesia Type: General and Block (Right interscalene nerve block. Informed consent for block obtained. Risks/benefits/alternatives explained. Patient verbalized understanding and gave informed consent for procedure) History Source History Obtained from:: Patient and Chart Anesthesia Focused Assessment* Temperature: 97.7 F Pulse Rate: 72 Blood Pressure: 129/50 Respiratory Rate: 16 Pulse Ox: 96 Oxygen Delivery Method: Room Air Airway Assessment Mouth opens: >3 cm Mallampati Score: III Neck Range of motion (ROM): Full ROM Labs Anesthesia Preop lab: CBC WBC 7.0 K/mm3 (4.4-11.0) 12/02/24 14:20 12/02/24 RBC 3.84 M/mm3 (4.2-5.4) L 12/02/24 14:20 12/02/24 Hgb 12.0 g/dL (12.0-15.0) 12/02/24 14:20 12/02/24 Hct 37.4 % (37-47) 12/02/24 14:20 12/02/24 Plt Count 199 K/mm3 (150-450) 12/02/24 14:20 12/02/24 CHEMISTRY Potassium 4.3 mmol/L (3.3-5.1) 12/02/24 14:20 12/02/24 Sodium 138 mmol/L (133-145) 12/02/24 14:20 12/02/24 Magnesium 1.8 mg/dL (1.5-2.2) 12/02/24 14:20 12/02/24 BUN 20 mg/dL (4-19) H 12/02/24 14:20 12/02/24 Creatinine 1.10 mg/dL (0.70-1.20) 12/02/24 14:20 12/02/24 Glucose 123 mg/dL (70-99) H 12/02/24 14:20 12/02/24 TSH 0.992 uIU/mL (0.300-4.200) 12/02/24 14:20 12/02/24 COAG PT 13.6 SECONDS (11.7-14.9) 12/02/24 14:20 12/02/24 Pre-Assessment Diagnosis/Proposed Procedure Planned Operative Procedure(s): (R) Right reverse Total Shoulder Replacement, ERAS Anesthesia History 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 When Was Last Pacemaker Check QUESTION #4 FULL TEXT: You/Your Family Experience fever (hyperthermia) with Anesthesia Last Oral Intake Last Oral intake: Last Oral Intake NPO since 05:30 12/29/24 07:17 Meds taken in AM with sips of Yes 12/29/24 07:17 water? Meds patient instructed to take am of surgery PONV PONV - almond blancher operator: PONV - almond blancher operator Female Yes 12/01/24 11:39 HX of Motion Sickness No 12/01/24 11:39 HX of N/V After Surgery No 12/01/24 11:39 Non-Smoker Yes 12/01/24 11:39 Duration of Surgery greater Yes 12/01/24 11:39 than 60 minutes Number of Risk Factors 3 12/01/24 11:39 PONV Score Moderate Risk 12/01/24 11:39 Height & Weight Height & Weight: Anesthesia: Height & Weight Height 5 ft 3 in 12/29/24 07:17 Weight: 86 kg 06/25/25 07:17 Body Mass Index (BMI) 33.5 12/29/24 07:17 Respiratory Assessment Respiratory Assessment - almond blancher operator: Respiratory Tract Infection Hx - almond blancher operator Hx Respiratory Tract Infection Yes: NO FEVER, SCRATCHY 12/02/24 14:33 THROAT, STOP Sleep Apnea STOP Sleep Apnea - almond blancher operator: STOP Sleep Apnea - almond blancher operator Hx 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 Yes: CONTROLLED ON MED 12/02/24 14:33 Hx Sleep Apnea Yes: Tested pos/no assist. 12/02/24 14:33 CPAP No 12/02/24 14:33 BIPAP No 12/02/24 14:33 Do you snore loudly (louder than talking or can be heard Do you often feel tired/ fatigued/ sleepy during daytime? Has anyone observed you stop breathing during sleep? STOP Results Positive 12/01/24 11:39 QUESTION #5 FULL TEXT : Do you snore loudly (louder than talking or can be heard through closed doors)? 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 Specify any problems Hx of Preganancy in last 3 No 12/01/24 11:39 Months Nurse Filling Out Transfusion VCHRISTIN 12/01/24 11:39 & Questions: Date: 12/01/24 12/01/24 11:39 Time: 11:42 12/01/24 11:39 Patient unable to answer at this time (ie. confused, unrespo /Reproduction History /Reproductive History - almond blancher operator: /Reproductive Hx- almond blancher operator Hx Now No 12/01/24 11:39 Gestational Age (in weeks): EDC: Hx Hx Para Hx Section SAB No 12/02/24 14:33 Active Medications Active Medications: Current Medications Generic Name Dose Route Start Last Admin Trade Name Kenneth PRN Reason Stop Dose Admin Acetaminophen 1,000 mg 12/29/24 12:45 12/29/24 07:15 Acetaminophen 500 Mg Tablet PO 12/29/24 12:46 1,000 mg PREOP ONE Administration Dexamethasone Sodium Phosphate 10 mg 12/29/24 12:45 Dexamethasone 10 Mg/Ml Vial IV 12/29/24 12:46 INTRAOP ONE Gabapentin 600 mg 12/29/24 12:45 12/29/24 07:15 Gabapentin 600 Mg Tablet PO 12/29/24 12:46 600 mg PREOP ONE Administration Tranexamic Acid 1,000 mg/ 110 mls @ 660 mls/hr 12/29/24 12:45 Sodium Chloride IV 12/29/24 12:54 INTRAOP ONE Tranexamic Acid 1,000 mg/ 110 mls @ 660 mls/hr 12/29/24 12:45 Sodium Chloride IV 12/29/24 12:54 INTRAOP ONE Lactated Ringer's 1,000 mls @ 125 mls/hr 12/29/24 12:45 IV 12/29/24 20:44 .Q8H LENIN Magnesium Sulfate 2 gm/ 104 mls @ 208 mls/hr 12/29/24 12:45 12/29/24 07:13 Dextrose IV 12/29/24 13:14 208 mls/hr INTRAOP ONE Administration Cefazolin Sodium 2 gm/ Sodium 110 mls @ 200 mls/hr 12/29/24 12:45 Chloride IV 12/29/24 13:17 INTRAOP ONE Lactated Ringer's 1,000 mls @ 15 mls/hr 12/29/24 06:30 12/29/24 07:14 IV 15 mls/hr .Q48H LENIN Administration Insulin Human Lispro 1 - 6 unit 12/29/24 12:45 Insulin Lispro 100 Unit/Ml Insuln.Pen SC 12/29/24 18:00 Q4H PRN PRN BG>/= 180, SEE PROTOCOL Protocol Scopolamine HBr 1 patch 12/29/24 12:45 12/29/24 07:14 Scopolamine 1mg/72hr Patch TD 12/29/24 12:46 1 patch PREOP ONE Administration Vancomycin HCl 0 mg 12/29/24 12:45 Vancomycin Iv 1,000 Mg/20 Ml Vial OPERA.SITE 12/29/24 12:46 X1 ONE [facility] Medical History Wears partial dentures Wears glasses Post-menopausal History of Clostridium difficile infection MRSA infection Cancer History of steroid therapy Insulin dependent diabetes mellitus Diabetes Arthritis DVT (deep venous thrombosis) Back pain History of hiatal hernia History of IBS Gastric reflux Non-smoker History of pain when walking History of echocardiogram History of stress test 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 Cardiology follow-up encounter Hx of fracture of lower leg Secondary osteoarthritis, right shoulder Right shoulder pain Osteopenia determined by x-ray Bilateral pseudophakia Amblyopia of left eye Dry eye syndrome of bilateral lacrimal glands Acute allergic conjunctivitis of both eyes Hypertriglyceridemia Encounter for long-term (current) insulin use Shingles Thyroid disease Skin cancer High cholesterol Gout Diabetes type 2, controlled Back problem Seasonal allergies Home Medications ?Medication ?Instructions ?Recorded ?Last Taken ?Type insulin syringe-needle U-100 0.3 #350 ea 07/17/17 Unknown Rx mL 31 gauge x 5/16 (BD Insulin Syringe Ultra-Fine) pen needle, diabetic 32 gauge x #350 ea 02/19/18 Unknown Rx 5/32 (BD Ultra-Fine Christy Pen Needle) cholecalciferol (vitamin D3) 25 2,000 unit PO DAILY 06/23/18 12/28/24 History mcg (1,000 unit) capsule aspirin 81 mg tablet,delayed 81 mg PO DAILY 07/24/20 12/15/24 History release mecobalamin (vitamin B12) 1,000 1,000 mcg PO DAILY 07/24/20 12/28/24 History mcg chewable tablet blood sugar diagnostic #100 ea 12/18/20 Unknown Rx polyethylene glycol 3350 17 4 g PO DAILY PRN constipation 01/23/23 12/28/24 History gram/dose oral powder (Miralax) tramadol 25 mg tablet 50 mg PO Q8H PRN pain 09/01/23 12/28/24 History flash glucose sensor (FreeStyle #2 ea 10/02/23 Unknown Rx Nomi 2 Sensor kit) fluticasone propionate 50 1 spray intranasal DAILY PRN 01/01/24 12/28/24 History mcg/actuation nasal allergy symptoms spray,suspension lisinopril 10 mg tablet 10 mg PO DAILY #90 tabs 01/23/24 12/28/24 Rx blood sugar diagnostic (OneTouch #100 ea 04/09/24 Unknown Rx Ultra Test strips) blood-glucose sensor (FreeStyle #6 ea 05/13/24 Unknown Rx Nomi 3 Plus Sensor device) blood-glucose,barley steeper,cont #1 ea 05/13/24 Unknown Rx (FreeStyle Nomi 3 [place]) pen needle, diabetic 32 gauge x #150 ea 06/14/24 Unknown Rx 32 (BD Ultra-Fine Christy Pen Needle) loratadine 10 mg tablet 10 mg PO DAILY PRN for allergies 09/20/24 12/28/24 Rx #90 TABLETS allopurinol 300 mg tablet 300 mg PO DAILY #90 tabs 10/13/24 12/28/24 Rx furosemide 20 mg tablet 20 mg PO QDAY #90 tabs 10/13/24 12/28/24 Rx levothyroxine 112 mcg tablet 112 mcg PO DAILY #90 tabs 10/13/24 12/29/24 Rx montelukast 10 mg tablet 10 mg PO DAILY #90 tabs 10/13/24 12/28/24 Rx rosuvastatin 20 mg tablet 20 mg PO QDAY #90 tabs 10/13/24 12/28/24 Rx trazodone 50 mg tablet 50 mg PO QHS PRN insomnia #90 tabs 10/13/24 12/28/24 Rx fenofibrate micronized 134 mg 134 mg PO DAILY #90 caps 11/02/24 12/28/24 Rx capsule insulin degludec 200 unit/mL (3 50 unit subcut QHS 12/01/24 12/28/24 History mL) subcutaneous pen (Tresiba FlexTouch U-200 insulin) metoprolol succinate 50 mg 25 mg PO DAILY 12/01/24 12/29/24 History tablet,extended release 24 hr pantoprazole 40 mg tablet,delayed 40 mg PO Q OTHER DAY PRN heartburn 12/01/24 12/28/24 History release omega-3 fatty acids 1,000 mg 1,000 mg PO QDAY 12/02/24 12/28/24 History capsule potassium chloride 20 mEq 20 meq PO QDAY #90 tabs 12/02/24 12/28/24 Rx tablet,extended release(part/cryst) (Klor-Con M) insulin aspart U-100 100 unit/mL 28 unit subcut TID 12/21/24 12/28/24 History (3 mL) subcutaneous pen (Novolog FlexPen U-100 Insulin aspart) Allergy/AdvReac Type Severity Reaction Status Date / Time Sulfa (Sulfonamide AdvReac Severe Upset Verified 12/29/24 07:11 Antibiotics) Stomach Penicillins AdvReac Intermediate Diarrhea Verified 12/29/24 07:11 cephalexin (From Keflex) AdvReac Nausea/Vom/ Verified 12/29/24 07:11 Diarrhea Family History Father Colon cancer Mother Diabetes Myocardial infarction Son Kidney stones Son Kidney stones Diabetes Hyperlipidemia Sister Diabetes Brother Diabetes Heart disease Sister Heart disease Diabetes COPD (chronic obstructive pulmonary disease) Surgical History Status post Mohs surgery History of knee replacement History of carpal tunnel release Hx of hernia repair H/O total hysterectomy Hx of cataract surgery Hx of cholecystectomy History of back surgery Social History household members: spouse current occupational status: retired 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
--- NOTE | 2024-12-29 08:00 | RAD_ITS ---
PROCEDURE: SHOULDER MIN 2 VIEWS 12/29/2024 REASON FOR EXAM: RT REVERSE TOTAL SHOULDER REPLACEMENT TECHNIQUE: SHOULDER MIN 2 VIEWS Radiation dose: 0.59 mGy. Radiation time: 6.2 seconds. COMPARISON: Radiograph on 09/27/2024. FINDINGS: Right shoulder reverse arthroplasty in the interim with unremarkable metallic prosthesis. Degenerative joint disease. RAD/Shoulder min 2 Views IMPRESSION: Right shoulder reverse arthroplasty in the interim with unremarkable metallic p rosthesis. Reading [facility]
[2024-12-29 08:07] LABS: Bedside Glucose 181 mg/dL (74-106)
[2024-12-29] MEDS: Cefazolin 2 GM in 0.9% Normal Saline (100mL Bag) 100 ML IV ×2 (08:51→19:59)
[2024-12-29] MEDS: dexAMETHasone 10 MG/ML Vial IV (08:56)
[2024-12-29] MEDS: TXA 1000mg in NS100 100ml (IVPB at Incision) 660 MG IV (09:00)
[2024-12-29] MEDS: Vancomycin IV 1,000 MG/20 ML Vial OPERA.SITE (10:03)
[2024-12-29 10:29] LABS: Bedside Glucose 170 mg/dL (74-106)
[2024-12-29] MEDS: TXA 1000mg in NS100 100ml (IVPB at Closure) 660 MG IV (11:17)
--- NOTE | 2024-12-29 11:29 | OP.PCM_ITS ---
Problems Associated Problem List Diagnoses (1) Secondary osteoarthritis, right shoulder: Procedures Musculoskeletal [id number]: Other Procedure See Report Operative Report (Standard) Operative Information Date of Procedure: 01/05/25 Pre-Operative Diagnosis: Right shoulder osteoarthritis and malunion secondary to fracture Post-Operative Diagnosis: Same Surgery/Procedure Performed: Right shoulder reverse total shoulder arthroplasty biceps tenotomy organic preparation analyst: Yes Gluing Machine Feeder: toño Tasks completed by orthopaedic physician assistant: Retracting Type of Anesthesia: Block,Regional and General RN Documented Start/Stop Times: Operation Date: 12/29/24 08:30 Case Time Into Pre-Op 12/29/24 06:29 Out of Pre-Op 12/29/24 08:30 Anesthesia Start 12/29/24 08:51 Into Room 12/29/24 08:51 Procedure Start 12/29/24 09:24 Procedure End 12/29/24 11:25 Procedure Start Time: 09:24 Procedure Stop Time: 11:25 Select all DRAINS/GRAFTS/IMPLANTS that apply: Prosthetic device Prosthetic device details: harsha tornier reunion fracture stem RTSA Estimated Blood Loss: 50 Specimen collected: No Description of surgery: Patient brought the operating room theater. Placed supine on the table. General anesthesia induced. Beachchair used. 2 g IV Ancef as well as 2 g IV total of tranexamic acid administered. Patient sat up 45 degree angle. Arm yousif the patient's right side all bony prominences padded. SCDs on the legs. Upper extremity prepped and draped in the usual sterile fashion with chlorhexidine-based prep solution allowing over 3 minutes drying time prior to draping. Preoperative timeout formed to confirm the site patient the surgery. Began by making a deltopectoral incision just lateral to the coracoid process carried the dissection down through skin and subcutaneous tissue achieved meticulous hemostasis. Identified the cephalic vein protected that retracted laterally. Identified the conjoined tendon incised on the lateral aspect of that retracted immediately. Identified long head of the biceps tendon and performed a tenotomy and the biceps was quite thin. Released the upper border of the pectoralis major tendon. Identified the circumflex humeral vessels controlled those and cauterized them. Did not subscapularis to the lesser tuberosity osteotomy with a small wafer of bone. Protected that. Performed a capsulectomy anteriorly protected the axillary nerve. Released the capsule circumferentially from the proximal humerus. Use the extramedullary guide pad and 30 degrees of retroversion for the planned [place] reunion Tornier reverse total shoulder fracture stem. Had to take an extra 20 minutes to remove any sort of extra bone especially posteriorly as there was a proximal humerus healed malunion that would not have been typical for this case. Next I turned my attention to the glenoid side. Using preoperative templating with the [employer] program I inserted the guidepin for the planned 15 degree posterior full wedge. Reamed centrally as well as using the 15 degree retroverted reamer. This achieved good punctate bleeding bone without violating the subchondral plate. Then drilled for the central screw 6.5 millimeter screw. This measured 30 mm. I selected the baseplate Tornier perform 15 degrees augmented wedge placed the wedge at approximately the 10:00 on the clock face. I then inserted the central screw this measured 30 mm long. And inserted the peripheral screws starting with the 10:00 screw and then working around after that the for screw was compression screw followed by locking screws. These all achieve good purchase. Thoroughly irrigated followed by insertion of the gl enosphere which was a size 36 [address] tap this [address] and fully seated this using the central screwdriver. I then turned my attention back to the humeral side. I trialed up to a size 9S fracture stem with standard polyethylene thickness +0 mm. This was achieved good solid reduction good tension on the conjoined tendon full range of motion no impingement or levering. Took intraoperative radiographs with the trials as well as with the final components. Trial components removed pulse lavage used followed by implanting the final components as well as using sutures through the humeral stem to repair the subscapularis osteotomy as well as bone grafting of the stem the same achieved good purchase impacted this into place followed by impacting the Tornier perform retentive polyethylene thickness of appropriate size +0 mm. No screws as good press fit. This was reduced and again trialed and felt to be stable and appropriate. Final radiographs taken and saved onto the system was thoroughly irrigated vancomycin powder used. Subcutaneous tissue closed with 2-0 Vicryl sutures skin with 3-0 Monocryl. Skin cleaned with wet and dry dressing followed by patient Steri-Strips and S over Mepilex border dressing with an abduction pillow sling for the upper extremity. Patient woken up from the general anesthetic transferred off the operating table taken to postanesthetic care unit in stable condition. All sponge needle instrument counts were correct patient's Plan for the patient admit under obs and consult medicine as well. cpt 92887, [id number], MOD 22 Surgical Findings: As above Complications Complications: No Admit VTE Documentation VTE Present on Admission: No VTE Mechan Device Prophylaxis: SCD's VTE Pharm Prophylaxis ordered?: No Reason prophylaxis not ordered: Treatment Not Indicated
--- NOTE | 2024-12-29 11:43 | PCM.POST.ANE ---
Anesthesia: Postop Eval I Current Vital Signs Temperature: 97.8 F Pulse Rate: 87 Blood Pressure: 92/54 Respiratory Rate: 16 Pulse Ox: 92 Assessment Airway patent: Yes Spontaneous unlabored respirations: Yes nausea: No Vomiting: No Anesthesia Complication: No Fluid Hydration Crystalloid volume administer (ml): 1,000 Total IV fluid infused: 1,000 Progress Note Anesthesia document: Postop Eval 1 completed: Yes
--- NOTE | 2024-12-29 14:49 | POSTOPAN2_ITS ---
Anesthesia Postop Eval I Sum Postop Eval Completion status Anesthesia document: Postop Eval 1 completed: Yes Anesthesia Postop Eval I Summary Anesthesia Postop Eval I Summary: Anesthesia Postop Eval I: Assessment Summary Airway patent Yes 12/29/24 11:43 REAL ESTATE CONSULTANT.TNES Spontaneous unlabored Yes 12/29/24 11:43 REAL ESTATE CONSULTANT.TNES respirations Mental status nausea No 12/29/24 11:43 REAL ESTATE CONSULTANT.TNES Vomiting No 12/29/24 11:43 REAL ESTATE CONSULTANT.TNES Anesthesia Postop Eval I: Fluid Summary Crystalloid volume administer 1,000 12/29/24 11:43 REAL ESTATE CONSULTANT.TNES (ml) Colloids volume administered ( ml) Blood Product volume administered (ml) Total IV fluid infused 1,000 12/29/24 11:43 REAL ESTATE CONSULTANT.TNES Anesthesia Postop Eval I: Summary Notes Anesthesia Complication No 12/29/24 11:43 REAL ESTATE CONSULTANT.TNES Anesthesia Complication Comment: Post-operative progress note Anesthesia: Postop Eval II Evaluation Mental status: Awake Pain Level: 0 nausea: No Vomiting: No Complications Anesthesia Complication: No
--- NOTE | 2024-12-29 14:49 | PCM.POSTANE2 ---
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.TNES Spontaneous unlabored Yes 12/29/24 11:43 VEHICLE ASSEMBLY INSPECTOR.TNES respirations Mental status nausea No 12/29/24 11:43 VEHICLE ASSEMBLY INSPECTOR.TNES Vomiting No 12/29/24 11:43 VEHICLE ASSEMBLY INSPECTOR.TNES Anesthesia Postop Eval I: Fluid Summary Crystalloid volume administer 1,000 12/29/24 11:43 VEHICLE ASSEMBLY INSPECTOR.TNES (ml) Colloids volume administered ( ml) Blood Product volume administered (ml) Total IV fluid infused 1,000 12/29/24 11:43 VEHICLE ASSEMBLY INSPECTOR.TNES Anesthesia Postop Eval I: Summary Notes Anesthesia Complication No 12/29/24 11:43 VEHICLE ASSEMBLY INSPECTOR.TNES Anesthesia Complication Comment: Post-operative progress note Anesthesia: Postop Eval II Evaluation Mental status: Awake Pain Level: 0 nausea: No Vomiting: No Complications Anesthesia Complication: No
--- NOTE | 2024-12-29 16:25 | PCM.PN.HOSP ---
Reason for Visit Reason for Visit: Diagnoses Hypothyroidism, unspecified (12/29/24) Secondary osteoarthritis, right shoulder (12/29/24) Encounter for other preprocedural examination (12/29/24) Subjective Subjective Consult requested by Dr. Martel for diabetic management. Patient today underwent reverse total shoulder arthroplasty and biceps tenotomy on the right. Still has numbness in her right arm. Otherwise feels well. Objective Data Objective Data Vital Signs: Vital Signs Temp Pulse Resp BP Pulse Ox O2 Del Method O2 Flow Rate 36.4 C L 80 16 118/41 L 93 Room Air 4 12/29/24 15:51 12/29/24 15:51 12/29/24 15:51 12/29/24 15:51 12/29/24 15:51 12/29/24 15:51 12/29/24 13:53 Oxygen Flow Rate (L/min) 4 Oxygen Delivery Method Room Air Weight: 86 kg Body Mass Index (BMI) 33.5 Intake & Output: Intake and Output for Last 24 Hours 12/27/24 12/28/24 12/29/24 23:59 23:59 23:59 Output Total 50 / 50 Balance -50 / -50 Lab / Micro Data 12/02/24 14:20 12/02/24 14:20 Labs: Laboratory Results - last 24 hr 12/29/24 07:04: POC Glucose 181 H 12/29/24 07:07: Blood Type A POSITIVE, Antibody Screen NEGATIVE 12/29/24 10:10: POC Glucose 170 H Micro: Microbiology 12/02/24 13:52 Swab (Method) Nasal Screen MRSA/MSSA - Final Physical Exam Const alert and no apparent distress Constitutional Narrative: Up in bed. Sling on right upper extremity. Right arm. HEENT head/scalp atraumatic and moist oral mucous membranes Extremity normal to inspection Neuro Sensorium / Orientation: awake and alert Psych affect normal Assessment & Plan Assessment/Plan (1) Diabetes type 2, controlled: PLAN: Diabetic diet. Patient on basal insulin, prandial insulin and sliding scale insulin. Patient may have some hypoglycemia initially but I think as things get better that should have to her baseline. PLAN: Plan 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: Stable. Continue with lisinopril and metoprolol succinate. VTE prophylaxis Per orthopedics Patient medically stable at this time. Patient [place]in plan is to be discharged tomorrow. At this point in time I do not anticipate any medical issues toward her back and would likely just continue with her ongoing medications upon discharge. The hospital service will follow peripherally. Please reach out with any questions or concerns. Charges/Coding Visit Charges Inpatient E&M: 69170 Subs Hosp L1
[2024-12-29 17:02] LABS: Bedside Glucose 375 mg/dL (74-106)
[2024-12-29] MEDS: Insulin Lispro 100 UNIT/ML INSULN.PEN SC (17:03)
[2024-12-29] MEDS: Insulin Lispro 100 UNIT/ML INSULN.PEN 10 UNIT SC ×2 (17:04→22:25)
[2024-12-29] MEDS: LR 1,000 ML - 125 ML/HR (POST BOLUS) POST OP IV (19:27)
[2024-12-29] MEDS: Atorvastatin Calcium 40 MG Tablet PO (21:29)
[2024-12-29 22:05] LABS: Bedside Glucose 454 mg/dL (74-106)
[2024-12-29] MEDS: Insulin Glargine-YFGN 100 UNIT/ML Pen 25 UNIT SC (22:24)
[2024-12-29 22:25] LABS: Glucose 485 mg/dL (70-99)
[2024-12-30] VITALS (7 sets, daily range): BP systolic 106–122; BP diastolic 34–47; PULSE 62–78; RESP 16–18; TEMP 36.7–36.8; O2SAT 95–97; BMI 33.6
--- NOTE | 2024-12-30 00:13 | PCM.HOSP.N ---
Hospitalist Note Patient with notable hyperglycemia, did receive steroids perioperatively thus not unexpected. Administered evening longacting and ISS. Gave 10 u short acting additional and repeat BS level still elevated, will repeat and reassess.
[2024-12-30] MEDS: Insulin Lispro 100 UNIT/ML INSULN.PEN 10 UNIT SC ×4 (00:25→17:07)
[2024-12-30] MEDS: HYDROcodone Bitartrate/Apap 5/325 Tablet PO ×4 (03:25→20:03)
[2024-12-30] MEDS: Cefazolin 2 GM in 0.9% Normal Saline (100mL Bag) 100 ML IV ×3 (03:50→20:02)
[2024-12-30 04:59] LABS: Bedside Glucose 396 mg/dL (74-106)
[2024-12-30] MEDS: Levothyroxine 112 MCG Tablet PO (06:26)
[2024-12-30 06:58] LABS: Hematocrit 26.8 % (37-47); Hemoglobin 8.9 g/dL (12.0-15.0); Mean Corp Hgb Conc 33.2 g/dL (32-36); Mean Corpuscular Hgb 32.2 pg (27.0-32.0); Mean Corpuscular Volume 97.1 fL (81-99); Mean Platelet Vol. 9.5 fl (6.2-12.0); Platelet Count 177 K/mm3 (150-450); RBC Distribution Width CV 15.2 % (11.6-14.6); Red Blood Count 2.76 M/mm3 (4.2-5.4); White Blood Count 7.3 K/mm3 (4.4-11.0)
[2024-12-30 07:04] LABS: Bedside Glucose 219 mg/dL (74-106)
[2024-12-30 07:30] LABS: Anion Gap 12 (5-15); BUN 31 mg/dL (4-19); BUN/Creat Ratio 21.4 RATIO (10-20); Calcium,Total 8.7 mg/dL (7.6-11.0); Carbon Dioxide 22.9 mmol/L (21.0-32.0); Chloride 104 mmol/L (98-108); Creatinine, Serum 1.45 mg/dL (0.70-1.20); EST Glomerular Filtration Rate 37 (>60); Estimated Creatinine Clearance 32.01 ml/min (50-250); Glucose 213 mg/dL (70-99); Potassium 4.7 mmol/L (3.3-5.1); Sodium Level 138 mmol/L (133-145)
[2024-12-30] MEDS: Insulin Lispro 100 UNIT/ML INSULN.PEN SC ×4 (08:10→22:27)
[2024-12-30] MEDS: Fenofibrate 145 MG Tablet PO (08:12)
[2024-12-30] MEDS: Allopurinol 300 MG Tablet PO (08:12)
[2024-12-30] MEDS: Furosemide 20 MG Tablet PO (08:12)
[2024-12-30] MEDS: Lisinopril 10 MG Tablet PO (08:12)
[2024-12-30] MEDS: Metoprolol(XL)Succ 25 MG Tablet PO (08:22)
[2024-12-30] MEDS: Montelukast 10 MG Tablet PO (08:22)
[2024-12-30 08:45] LABS: Bedside Glucose 239 mg/dL (74-106)
[2024-12-30 10:32] LABS: Bedside Glucose 256 mg/dL (74-106)
--- NOTE | 2024-12-30 11:30 | CASEMGMT ---
Met with patient to complete PATEL form. PATEL form and its content were verbally explained and patient's questions were answered to the best of my ability.? Patient voiced understanding and signed PATEL form.? Patient provided a copy of signed PATEL form and original placed in patient's chart.? Patient had no further questions. Carmen Potts, Discharge Planning Asst
[2024-12-30] MEDS: 0.9% Saline Lock 10 ML Syringe IV ×2 (11:51→20:02)
[2024-12-30 13:04] LABS: Bedside Glucose 233 mg/dL (74-106)
--- NOTE | 2024-12-30 16:37 | CASEMGMT ---
PRINCE WASHINGTON NOTE: PRINCE WASHINGTON to room. Pt just returning to chair in room from the bathroom w/SBA of aide and use of cane. Introduced self and role. Pt states she lives @ home w/her , but he is currently @ [facility] after having a stroke on Friday. She states she spoke w/the hospital and they are looking into possibly having him discharged to [facility] (TCU or RU, she is not sure). Pt states she wishes to discharge home and already has a f/u with Dr Martel on Friday, 01/03 @ 1 PM. She plans to f/u with him re: any therapy that may be needed. She feels she will be able to manage taking care of herself @ home w/out difficulty and has no concerns w/discharging home alone. Pt states she is independent @ home, has good family support, son checks on her regularly, and also has an [facility] neighbor she can call to come help, if needed. There is a ramp entrance. She has a cane, walk-in whirlpool bath w/seat, functioning CGM w/supplies and back-up glucometer w/supplies as well. She denies need for any further DME. She would like to get any new medications from [facility] [place] She states her sister will take her home @ [place] and help get her settled in @ home. She had meals prepared prior to surgery. She denies having any discharge needs or concerns. Plan: Home. Pt to f/u with Dr Martel on Friday to discuss further therapy. Ebony BOYD RN, CM
[2024-12-30 17:29] LABS: Bedside Glucose 274 mg/dL (74-106)
--- NOTE | 2024-12-30 17:36 | PCM.PN.ORT ---
Subjective Subjective Patient still having uncontrolled pain. Block wore off. Normal sensation per nursing staff. Objective Data Objective Data Vital Signs: Vital Signs Temp Pulse Resp BP Pulse Ox O2 Del Method O2 Flow Rate 98.1 F 62 16 106/43 L 97 Room Air 2 12/30/24 15:00 12/30/24 15:00 12/30/24 15:00 12/30/24 15:00 12/30/24 15:00 12/30/24 15:00 12/30/24 03:40 Oxygen Flow Rate (L/min) 2 Oxygen Delivery Method Room Air Weight: 189 lb 9.561 oz Body Mass Index (BMI) 33.5 Intake & Output: Intake and Output for Last 24 Hours 12/28/24 12/29/24 12/30/24 23:59 23:59 23:59 Intake Total 968.50 / 968.50 1044.17 / 1044.17 Output Total 50 / 50 Balance 918.50 / 918.50 1044.17 / 1044.17 Lab / Micro Data 12/30/24 05:58 12/30/24 05:58 Labs: Laboratory Results - last 24 hr 12/29/24 21:25: POC Glucose 454 H* 12/29/24 21:45: Glucose 485 H* 12/29/24 23:42: POC Glucose 396 H 12/30/24 05:58: WBC 7.3, RBC 2.76 L, Hgb 8.9 L, Hct 26.8 L, MCV 97.1, MCH 32.2 H, MCHC 33.2, RDW Std Deviation 54.0 H, RDW Coeff of Stephane 15.2 H, Plt Count 177, MPV 9.5, Sodium 138, Potassium 4.7, Chloride 104, Carbon Dioxide 22.9, Anion Gap 12, BUN 31 H, Creatinine 1.45 H, Estim Creat Clear Calc 32.01 L, Est GFR (MDRD) Non-Af 37 L, BUN/Creatinine Ratio 21.4 H, Glucose 213 H, Calcium 8.7 12/30/24 06:25: POC Glucose 219 H 12/30/24 08:09: POC Glucose 239 H 12/30/24 10:14: POC Glucose 256 H 12/30/24 12:20: POC Glucose 233 H 12/30/24 17:04: POC Glucose 274 H Micro: Microbiology 12/02/24 13:52 Swab (Method) Nasal Screen MRSA/MSSA - Final Radiography Diagnostic Testing: Radiology Impression Shoulder X-Ray 12/29/24 08:00 IMPRESSION: Right shoulder reverse arthroplasty in the interim with unremarkable metallic prosthesis. Reading Location: [place] [id number] Assessment & Plan Assessment/Plan (1) Right shoulder pain: PLAN: 79 F POD 1 RTSA. Pain control an issue. Will keep overnight one more night, if pain controlled, then plan to DC home in the morning. (2) Secondary osteoarthritis, right shoulder: (3) Status post total shoulder arthroplasty:
[2024-12-30] MEDS: traZODone 50 MG Tablet PO (22:27)
[2024-12-30] MEDS: Atorvastatin Calcium 40 MG Tablet PO (22:27)
[2024-12-30] MEDS: Insulin Glargine-YFGN 100 UNIT/ML Pen 25 UNIT SC (22:28)
[2024-12-31 00:14] LABS: Bedside Glucose 261 mg/dL (74-106)
[2024-12-31 02:13] VITALS: BP 127/59; PULSE 82; RESP 18; TEMP 36.4; O2SAT 95
[2024-12-31] MEDS: HYDROcodone Bitartrate/Apap 5/325 Tablet PO ×2 (02:27→10:38)
[2024-12-31] MEDS: Levothyroxine 112 MCG Tablet PO (05:42)
[2024-12-31 08:16] VITALS: BP 116/51; PULSE 68; RESP 17; TEMP 36.7; O2SAT 98
[2024-12-31] MEDS: Insulin Lispro 100 UNIT/ML INSULN.PEN SC (08:19)
[2024-12-31] MEDS: Insulin Lispro 100 UNIT/ML INSULN.PEN 10 UNIT SC (08:19)
[2024-12-31 08:20] VITALS: PULSE 68
[2024-12-31] MEDS: Fenofibrate 145 MG Tablet PO (08:20)
[2024-12-31] MEDS: Metoprolol(XL)Succ 25 MG Tablet PO (08:20)
[2024-12-31] MEDS: Furosemide 20 MG Tablet PO (08:20)
[2024-12-31] MEDS: Montelukast 10 MG Tablet PO (08:20)
[2024-12-31] MEDS: Allopurinol 300 MG Tablet PO (08:20)
[2024-12-31] MEDS: Lisinopril 10 MG Tablet PO (08:21)
[2024-12-31 08:52] LABS: Bedside Glucose 240 mg/dL (74-106)
--- NOTE | 2024-12-31 09:18 | PCM.PN.ORT ---
Subjective Subjective POD 2 right reverse total shoulder arthroplasty. Patient doing well. Patient seeing physical therapy this morning. The physical therapist states she is safe to go home. Was up to the washroom. Pain has settled down. Wearing the sling. Has been taught some exercises initially. Objective Data Objective Data Vital Signs: Vital Signs Temp Pulse Resp BP Pulse Ox O2 Del Method O2 Flow Rate 98.0 F 68 17 116/51 L 98 Room Air 2 12/31/24 08:16 12/31/24 08:20 12/31/24 08:16 12/31/24 08:16 12/31/24 08:16 12/31/24 08:16 12/30/24 03:40 Oxygen Flow Rate (L/min) 2 Oxygen Delivery Method Room Air Weight: 189 lb 9.561 oz Body Mass Index (BMI) 33.5 Intake & Output: Intake and Output for Last 24 Hours 12/29/24 12/30/24 12/31/24 23:59 23:59 23:59 Intake Total 968.50 / 968.50 1754.17 / 1754.17 400 / 400 Output Total 50 / 50 Balance 918.50 / 918.50 1754.17 / 1754.17 400 / 400 Lab / Micro Data 12/30/24 05:58 12/30/24 05:58 Labs: Laboratory Results - last 24 hr 12/30/24 10:14: POC Glucose 256 H 12/30/24 12:20: POC Glucose 233 H 12/30/24 17:04: POC Glucose 274 H 12/30/24 22:26: POC Glucose 261 H 12/31/24 08:18: POC Glucose 240 H Micro: Microbiology 12/02/24 13:52 Swab (Method) Nasal Screen MRSA/MSSA - Final Physical Exam Const alert, oriented x3 and no apparent distress General Appearance: cooperative and well developed Extremity normal capillary refill Extremity Narrative: Dressing dry and intact upper extremity soft closed wearing the sling neurovascularly intact axillary nerve as well as median radial ulnar nerves and AIN/PIN. Hands warm and well-perfused strong radial pulse. Assessment & Plan Assessment/Plan (1) Status post total shoulder arthroplasty: PLAN: 79-year-old female postop day 2 okay to be discharged home stable condition. No complications. Patient doing well has follow-up for on Friday they understood the instructions I went over the what to do what not to do gentle pendulum exercises 4 times a day hand wrist and elbow exercises no heavy lifting pushing or pulling patient understands no further questions or concerns keep the incision dry until follow-up.
--- NOTE | 2024-12-31 09:24 | DS.PCM_ITS ---
Providers Date of Admission: 12/29/24 Primary Care Physician: Dr. Penny Coulter MD Reason For Visit: Right reverse Total Shoulder Replacement Diagnosis Discharge Diagnosis (1) Status post total shoulder arthroplasty: Status: Acute Code(s): Z96.619 - Presence of unspecified artificial shoulder joint Plan: 79-year-old female postop day 2 okay to be discharged home stable condition. No complications. Patient doing well has follow-up for on Friday they understood the instructions I went over the what to do what not to do gentle pendulum exercises 4 times a day hand wrist and elbow exercises no heavy lifting pushing or pulling patient understands no further questions or concerns keep the incision dry until follow-up. Medications at Discharge Home Medications insulin syringe-needle U-100 0.3 mL 31 gauge x 5/16 (BD Insulin Syringe Ultra- Fine) #350 ea 07/17/17 pen needle, diabetic 32 gauge x 5/32 (BD Ultra-Fine Christy Pen Needle) #350 ea 02/19/18 cholecalciferol (vitamin D3) 25 mcg (1,000 unit) capsule 2,000 unit PO DAILY 06/23/18 aspirin 81 mg tablet,delayed release 81 mg PO DAILY 07/24/20 mecobalamin (vitamin B12) 1,000 mcg chewable tablet 1,000 mcg PO DAILY 07/24/20 blood sugar diagnostic #100 ea 12/18/20 polyethylene glycol 3350 17 gram/dose oral powder (Miralax) 4 g PO DAILY PRN constipation 01/23/23 tramadol 25 mg tablet 50 mg PO Q8H PRN pain 09/01/23 flash glucose sensor (FreeStyle Nomi 2 Sensor kit) #2 ea 10/02/23 fluticasone propionate 50 mcg/actuation nasal spray,suspension 1 spray intranasal DAILY PRN allergy symptoms 01/01/24 lisinopril 10 mg tablet 10 mg PO DAILY #90 tabs 01/23/24 blood sugar diagnostic (OneTouch Ultra Test strips) #100 ea 04/09/24 blood-glucose sensor (FreeStyle Nomi 3 Plus Sensor device) #6 ea 05/13/24 blood-glucose,semiconductor wafers tester,cont (FreeStyle Nomi 3 [place]) #1 ea 05/13/24 pen needle, diabetic 32 gauge x 5/32 (BD Ultra-Fine Christy Pen Needle) #150 ea 06/14/24 loratadine 10 mg tablet 10 mg PO DAILY PRN for allergies #90 TABLETS 09/20/24 allopurinol 300 mg tablet 300 mg PO DAILY #90 tabs 10/13/24 furosemide 20 mg tablet 20 mg PO QDAY #90 tabs 10/13/24 levothyroxine 112 mcg tablet 112 mcg PO DAILY #90 tabs 10/13/24 montelukast 10 mg tablet 10 mg PO DAILY #90 tabs 10/13/24 rosuvastatin 20 mg tablet 20 mg PO QDAY #90 tabs 10/13/24 trazodone 50 mg tablet 50 mg PO QHS PRN insomnia #90 tabs 10/13/24 fenofibrate micronized 134 mg capsule 134 mg PO DAILY #90 caps 11/02/24 insulin degludec 200 unit/mL (3 mL) subcutaneous pen (Tresiba FlexTouch U-200 insulin) 50 unit subcut QHS 12/01/24 metoprolol succinate 50 mg tablet,extended release 24 hr 25 mg PO DAILY 12/01/24 pantoprazole 40 mg tablet,delayed release 40 mg PO Q OTHER DAY PRN heartburn 12/01/24 omega-3 fatty acids 1,000 mg capsule 1,000 mg PO QDAY 12/02/24 potassium chloride 20 mEq tablet,extended release(part/cryst) (Klor-Con M) 20 meq PO QDAY #90 tabs 12/02/24 insulin aspart U-100 100 unit/mL (3 mL) subcutaneous pen (Novolog FlexPen U-100 Insulin aspart) 28 unit subcut TID 12/21/24 oxycodone-acetaminophen 5 mg-325 mg tablet (Percocet) 1 tab PO Q4H PRN pain 5 days #20 tabs 12/31/24 Hospital Course Summary of Care Provided Minutes Spent on Discharge: 20 Hospital Course: benign, pain control Physical Exam Const oriented x3 and no apparent distress Resp normal respiratory effort Extremity normal to inspection Extremity Narrative: NVI, drsg dry. Weight / BMI Weight Weight: 189 lb 9.561 oz Body Mass Index (BMI) 33.5 ABG / Lab / Microbiology Data 12/30/24 05:58 12/30/24 05:58 Laboratory: Laboratory Results - last 24 hr 12/30/24 10:14: POC Glucose 256 H 12/30/24 12:20: POC Glucose 233 H 12/30/24 17:04: POC Glucose 274 H 12/30/24 22:26: POC Glucose 261 H 12/31/24 08:18: POC Glucose 240 H Microbiology: Microbiology 12/02/24 13:52 Swab (Method) Nasal Screen MRSA/MSSA - Final D/C Instructions Discharge Diet: No restrictions Discharge Activity: May Not Drive Ice area for (Minutes): 10 Lifting Restricted to (Lbs): 1 Lifting Restrictions: ok for pendulums, hand wrist elbow ROM 4x/day Additional Activity Instructions: sling 2 weeks during day, sleep in sling 4 weeks Call your doctor if your incision/area has: Continuous Slow Oozing, Sudden Increased Bleeding, Increased Pain/ Swelling, Increased Redness, Foul Smelling Discharge and Swelling at the incision site Call your doctor if you observe: Fever of 101 or Higher, Coldness, Increased Pain and Numbness or Tingling Change Dressing in: leave in place till F/U Cleanse incision/area with: Do not get Incision Wet DC O2, CPAP, BIPAP Needs Home O2 Discharge instructions: No Please Follow Up With: Chris Martel MD When: within 2 weeks Meaningful Use Info Meaningful Use Meaningful Use Diagnoses (Choose all that apply): None applicable Ischemic Stroke Statin Dosing Therapy Reference: STATIN DOSE THERAPY REFERENCE: * Patients > 75 years receive moderate or high dose statin therapy. * Patients 75 years or YOUNGER should receive HIGH intensity statin dose unless contraindicated. You will be required to document reason for non-treatment if statin daily dose does not meet guidelines. HIGH DOSE STATIN THERAPY DAILY Atorvastatin > than or = to 40 mg Rosuvastatin > than or = to 20 mg Amlodipine + Atorvastatin > than or = to 2.5/40 mg Ezetimibe + Simvastatin 10/80 mg Simvastatin 80mg Discharge Plan Admission Admit Date/Time: 12/29/24 11:39 Primary Reason for Your Visit: post op pain RTSA Attending Provider: Chris Martel Primary Care Provider: Penny Coulter Instructions Patient Instructions: Shoulder Replace Home Recovery Discharge Orders/Prescriptions Prescriptions: New oxycodone-acetaminophen [Percocet] 5-325 mg tablet 1 tab PO Q4H MDD 4 PRN (Reason: pain) 5 Days Qty: 20 0RF Continued (DME) insulin syringe-needle U-100 [BD Insulin Syringe Ultra-Fine] 0.3 mL 31 gauge x 5/16 syringe See Dose Instructions .ROUTE .MEDSUPPLY Qty: 350 3RF Dose Instruction: As directed Rx Instructions: use to inject insulin 4 x q d (DME) pen needle, diabetic [BD Ultra-Fine Christy Pen Needle] 32 gauge x 5/32 needle See Dose Instructions .ROUTE .MEDSUPPLY Qty: 350 3RF Dose Instruction: As directed Rx Instructions: As directed with insulin 4x daily cholecalciferol (vitamin D3) 1,000 unit capsule 2,000 unit PO DAILY aspirin 81 mg tablet,delayed release (DR/EC) 81 mg PO DAILY mecobalamin (vitamin B12) 1,000 mcg tablet,chewable 1,000 mcg PO DAILY (DME) blood sugar diagnostic Strip See Dose Instructions .ROUTE .MEDSUPPLY Qty: 100 3RF Dose Instruction: As directed Rx Instructions: daily polyethylene glycol 3350 [Miralax] 17 gram/dose powder 4 g PO DAILY PRN (Reason: constipation) fluticasone propionate 50 mcg/actuation spray,suspension 1 spray intranasal DAILY PRN (Reason: allergy symptoms) Rx Instructions: administer into each nostril omega-3 fatty acids 1,000 mg capsule 1,000 mg PO QDAY tramadol 25 mg tablet 50 mg PO Q8H PRN (Reason: pain) (DME) FreeStyle Nomi 3 Plus Sensor Device See Rx Instructions .Route Qty: 6 1RF Rx Instructions: As directed (DME) FreeStyle Nomi 3 [place] Misc See Rx Instructions .Route Qty: 1 0RF Rx Instructions: As directed fenofibrate micronized 134 mg capsule 134 mg PO DAILY Qty: 90 3RF allopurinol 300 mg tablet 300 mg PO DAILY Qty: 90 1RF levothyroxine 112 mcg tablet 112 mcg PO DAILY Qty: 90 1RF montelukast 10 mg tablet 10 mg PO DAILY Qty: 90 1RF rosuvastatin 20 mg tablet 20 mg PO QDAY Qty: 90 1RF trazodone 50 mg tablet 50 mg PO QHS PRN (Reason: insomnia) Qty: 90 1RF furosemide 20 mg tablet 20 mg PO QDAY Qty: 90 1RF loratadine 10 mg tablet 10 mg PO DAILY PRN (Reason: for allergies) Qty: 90 0RF potassium chloride [Klor-Con M20] 20 mEq tablet,ER particles/crystals 20 meq PO QDAY Qty: 90 0RF metoprolol succinate 50 mg tablet extended release 24 hr 25 mg PO DAILY pantoprazole 40 mg tablet,delayed release (DR/EC) 40 mg PO Q OTHER DAY PRN (Reason: heartburn) insulin degludec [Tresiba FlexTouch U-200] 200 unit/mL (3 mL) insulin pen 50 unit subcut QHS insulin aspart U-100 [Novolog FlexPen U-100 Insulin] 100 unit/mL (3 mL) insulin pen 28 unit subcut TID MDD 160 Rx Instructions: plus sliding scale (DME) FreeStyle Nomi 2 Sensor Kit See Rx Instructions .Route Qty: 2 7RF Rx Instructions: As directed lisinopril 10 mg tablet 10 mg PO DAILY Qty: 90 1RF (DME) OneTouch Ultra Test Strip See Rx Instructions .ROUTE .MEDSUPPLY Qty: 100 6RF Rx Instructions: three times daily (DME) pen needle, diabetic [BD Ultra-Fine Christy Pen Needle] 32 gauge x 5/32 needle See Rx Instructions .ROUTE .MEDSUPPLY Qty: 150 8RF Rx Instructions: 5 times daily Other Ambulatory Orders: 12 Lead EKG (Routine) Timeframe: 20241202 Facility: [facility] - Location: Cardiovascular Services Ordered By: Chris Martel Referrals / Follow Up: Penny Coulter MD [Primary Care Provider] - Chris Martel MD [Med Staff - Active Staff] - 01/03/25 1:00 pm (As scheduled by pt. ) Disposition Disposition (needs filled in before D/C Order can be placed): Home, Self Care
--- NOTE | 2024-12-31 10:28 | CASEMGMT ---
PRINCE WASHINGTON NOTE: Discharge order is in. PRINCE WASHINGTON to room. Pt sitting up in chair. Pt aware she is discharging home and denies having any discharge needs or concerns. She will f/u with Dr Martel on Friday. PRINCE WASHINGTON spoke w/Dr Martel who verifies OP therapy does not needs set up at this time, stating he will order this when pt f/u with him on Friday. Ebony PATELN PRINCE WASHINGTON
== END 2024-12-31 10:52 | disposition home or self-care (01) ==
LOC: MS3 13:40 → SDC 13:41 → MS3 13:41
PROVIDERS: Family Medicine; Internal Medicine; Admitting Provider Orthopaedic Surgery Sports Medicine; PCP Internal Medicine; Referring Provider Orthopaedic Surgery Sports Medicine; Visit Provider Orthopaedic Surgery Sports Medicine
PROC: (CPT 23472; principal; 2024-12-29 08:00)
DX: S42.201K Unspecified fracture of upper end of right humerus, subsequent encounter for fracture with nonunion (principal); E11.65 Type 2 diabetes mellitus with hyperglycemia; Z79.4 Long term (current) use of insulin; E78.00 Pure hypercholesterolemia, unspecified; M10.9 Gout, unspecified; Z79.82 Long term (current) use of aspirin; I10 Essential (primary) hypertension; K21.9 Gastro-esophageal reflux disease without esophagitis; Z79.899 Other long term (current) drug therapy; M19.211 Secondary osteoarthritis, right shoulder; X58.XXXD Exposure to other specified factors, subsequent encounter
CPT/HCPCS: 23472; 01638; 23405; 36415; 73030; 76000; 80048; 82947; 82962; 82985; 83036; 83735; 84443; 85025; 85027; 85610; 85730; 86850; 86900; 86901; 87081; 94668; 96361; 96365; 96366; 97110; 97166; 97535; 99221; C1713; C1776; A4216; G0378; J2405

== ENCOUNTER 2025-02-18 11:00 | Outpatient (RCR) | payer MEDICARE, SELFPAY ==
--- NOTE | 2025-01-12 13:50 | HP.PTEVAL_ITS ---
Patient's Visit Information Visit Information Visit Information: MELISSA CINTRON is a 79 year old F referred to Physical Therapy by Dr. Chris Martel MD with a diagnosis of R TSA 12-28-24. Date of Evaluation: 01/12/25 Physical Therapist: KAYLEIGH Rojas Visit Plan Frequency: 2x /Week Duration: 3 Months Plan: 2X/ week for 10-12 weeks PROM R shoulder until 4 weeks post op (30 degrees ER) (01-25) Begin AAROM R shoulder on 01-25 until 6 weeks post op (-) start AROM (can start in reclined position if needed and progress) , continue PROM (ER to 45 degrees), Isometrics (except IR) and progress to light to full strengthening (ROWS, ER etc) as able HEP: pendulums, scapular retraction Subjective Subjective: Pt had a R TSA on 12-28-24. just took the bandages off yesterday and she was in a sling for 2 weeks. gave her no restrictions as of right now. She normally uses her cane in the R hand and she tried it but it hurts and she has to use the cane in the L hand now. Her balance is ok with using the cane in the L hand. She is sleeping ok. She is in bed. She is driving very carefully. Pain R shoulder pain: Pain Intensity (Out of 10): 5 Objective Objective: R handed R shoulder PROM ER 25 degrees and flexion 95 degrees Able to do scapular retraction and pendulums but after 1 set of fw/bw and sided to side pendulums pt reported that her hand started to go numb. Her hand re- gained feeling quickly Balance/Special Test Scores Quick DASH Score: 40.9075 Goals Goal 1:: I HEP Goal Time Frame: 8-12 Weeks Goal 2:: Increase R shoulder AROM to 120 degrees elevation and 60 degrees ER by DC Goal Time Frame: 8-12 Weeks Goal 3:: Increase R shoulder strength to equal that of the L Goal Time Frame: 8-12 Weeks Goal 4:: Increase scapular strength to be able to sit with good posture during treatment sessions Goal Time Frame: 8-12 Weeks Rehabilitation Potential Rehabilitation Potential: Good Anticipated Interventions Patient/Client Instruction: Educate patient on: Condition and Plan of Care For the Purpose of:: To decrease pain, To decrease swelling/inflammation, To increase ROM, To improve nutrient delivery to tissue, To improve muscle performance and motor function, To improve ability to perform ADL's, To increase tolerance to activity/condition/position, To improve performance and independence with ADL's, To decrease level of supervision to perform tasks, To improve health of tissue, To decrease soft tissue restriction and To increase flexibility/ROM Therapeutic Exercise to Include: Strength training, Postural training, Flexibilty training, Passive ROM, Active ROM and Scapular Strength/Stabilization For the Purpose of:: To decrease pain, To increase ROM, To improve nutrient delivery to tissue, To improve muscle performance and motor function, To improve ability to perform ADL's, To increase tolerance to activity/condition/position, To improve performance and independence with ADL's, To decrease level of supervision to perform tasks, To improve ability of physical actions for home/community/work/leisure, To improve health of tissue, To decrease soft tissue restriction and To increase flexibility/ROM Manual Therapy Techniques to Include: Passive ROM and Soft tissue mobilization For the Purpose of:: To decrease pain, To increase ROM, To improve nutrient delivery to tissue, To improve muscle performance and motor function, To improve ability to perform ADL's, To increase tolerance to activity/condition/position, To decrease soft tissue restriction and To increase flexibility/ROM Cryotherapy (ice pack, ice massage): Yes Thermo therapy (hot pack): Yes For the Purpose of:: To decrease pain, To decrease swelling/inflammation, To inc rease ROM, To improve nutrient delivery to tissue and To improve muscle performance and motor function Text: Thank you for the opportunity to evaluate your patient. For Medicare and Medicare HMO plans, please review the plan of care and approve it. It will need to be FAXED BACK to us at [phone] for Medicare purposes. For Medicare only, by signing this I certify the plan of care. Please let me know if there are questions or concerns regarding this plan of care. Physician Signature: Date:
--- NOTE | 2025-05-11 13:29 | HP.PT.NRP ---
Patient Information Patient Information: MELISSA CINTRON was seen in my office for initial evaluation on 01/12/25. The following Plan of Care was established for this patient: POC Established Initial Frequency: 2x /Week Initial Duration: 3 Months Anticipated Interventions Patient/Client Instruction: Educate patient on: Condition and Plan of Care For the Purpose of:: To decrease pain, To decrease swelling/inflammation, To increase ROM, To improve nutrient delivery to tissue, To improve muscle performance and motor function, To improve ability to perform ADL's, To increase tolerance to activity/condition/position, To improve performance and independence with ADL's, To decrease level of supervision to perform tasks, To improve health of tissue, To decrease soft tissue restriction and To increase flexibility/ROM Therapeutic Exercise to Include: Strength training, Postural training, Flexibilty training, Passive ROM, Active ROM and Scapular Strength/Stabilization For the Purpose of:: To decrease pain, To increase ROM, To improve nutrient delivery to tissue, To improve muscle performance and motor function, To improve ability to perform ADL's, To increase tolerance to activity/condition/position, To improve performance and independence with ADL's, To decrease level of supervision to perform tasks, To improve ability of physical actions for home/community/work/leisure, To improve health of tissue, To decrease soft tissue restriction and To increase flexibility/ROM Manual Therapy Techniques to Include: Passive ROM and Soft tissue mobilization For the Purpose of:: To decrease pain, To increase ROM, To improve nutrient delivery to tissue, To improve muscle performance and motor function, To improve ability to perform ADL's, To increase tolerance to activity/condition/position, To decrease soft tissue restriction and To increase flexibility/ROM Cryotherapy (ice pack, ice massage): Yes Thermo therapy (hot pack): Yes For the Purpose of:: To decrease pain, To decrease swelling/inflammation, To increase ROM, To improve nutrient delivery to tissue and To improve muscle performance and motor function Last Seen Last Seen: This patient was last seen in our office 02/18/25. Pertinent comments regarding their Physical therapy will appear below: YOLY PT At this point I will be discontinuing this patient from physical therapy. I would be happy to see this patient again in the future if found appropriate by the physician. Thank you! Maddie Evans, KAYLEIGH Balance/Gait/Functional tests Balance/Special Test Scores Quick DASH Score: 40.9056
== END 2025-02-18 19:00 | disposition home or self-care (01) ==
LOC: PT 11:00
PROVIDERS: PCP Internal Medicine; Referring Provider Orthopaedic Surgery Sports Medicine; Visit Provider Orthopaedic Surgery Sports Medicine
DX: Z96.619 Presence of unspecified artificial shoulder joint (principal)
CPT/HCPCS: 97110; 97140; 97161

== ENCOUNTER → 2025-03-23 | Outpatient (CLI) | payer MEDICARE, SELFPAY ==
[2025-03-23 21:17] LABS: Barbiturate Urine NEGATIVE (< 200 ng/mL); Benzodiazepine Urine NEGATIVE (< 200 ng/mL); PCP Urine NEGATIVE (< 25 ng/mL); THC Urine NEGATIVE (< 50 ng/mL)
== END | disposition home or self-care (01) ==
LOC: LAB 17:04
PROVIDERS: PCP Internal Medicine; Referring Provider Anesthesiology Pain Medicine; Visit Provider Anesthesiology Pain Medicine
DX: F11.20 Opioid dependence, uncomplicated (principal)
CPT/HCPCS: 80307